=== PATIENT | male | born 1975 | race Caucasian/White ===

== ENCOUNTER 2019-07-06 19:34 | Emergency (ER) | payer MEDICARE, MEDICAID ==
[~2019-07-06] VITALS: Ht 185.4 cm; Wt 90.7 kg
[~2019-07-06 19:34] MED LIST: ASP325T PO; CARI350T27 PO; DIPH1TAB25 PO; DISU250T PO; DISU500T PO; ENXP40I.4 SC; ESCI10TA48 PO; ESCI20TA38 PO; ETD400T; FRSM20T; FURO20TA4; FURO40TA4 PO; GENT3.5O3 OP; GENT5DRO3 OD; HSCO125 PO; HYDR-1231 PO; HYDR-3714 PO; KCL10CCR; KCL10CCR PO; LASIX; MIRT30TA6 PO; MOME15CR TP; MONT10TA21; NAPR-243 PO; NISO34TA3 PO; POTA10TA6; POTA10TA6 PO; POTASSIUM; PRED10TA PO; PREG100C22 PO; PREG75CA; SULAR; SULF-222 PO; TERB250T10 PO; TRAM-21 PO; TRM50T PO; VARD20TA30 PO; [UNRECOGNIZED DRUG - CODE]
[2019-07-06 20:47] LABS: BASOPHILS % (AUTO) 0 % (0-10); EOSINOPHILS # (AUTO) 0.5 10^3/uL (0.0-0.3); EOSINOPHILS % (AUTO) 3 % (0-10); HEMATOCRIT 49 % (40-54); HEMOGLOBIN 17.2 G/DL (13.3-17.7); LYMPHOCYTES # (AUTO) 3.4 X 10^3 (1.0-4.0); LYMPHOCYTES % (AUTO) 24 % (12-44); MEAN CORPUSCULAR HEMOGLOBIN 32 PG (25-34); MEAN CORPUSCULAR HGB CONC 35 G/DL (32-36); MEAN CORPUSCULAR VOLUME 91 FL (80-99); MEAN PLATELET VOLUME 9.5 FL (7.4-10.4); MONOCYTES # (AUTO) 1.3 X 10^3 (0.0-1.0); MONOCYTES % (AUTO) 9 % (0-12); NEUTROPHILS # (AUTO) 9.3 X 10^3 (1.8-7.8); NEUTROPHILS % (AUTO) 64 % (42-75); PLATELET COUNT 342 10^3/uL (130-400); RED CELL DISTRIBUTION WIDTH 13.2 % (10.0-14.5); WHITE BLOOD COUNT 14.5 10^3/uL (4.3-11.0)
[2019-07-06 21:07] LABS: ALANINE AMINOTRANSFERASE 25 U/L (0-55); ALBUMIN 4.9 GM/DL (3.2-4.5); ALKALINE PHOSPHATASE 115 U/L (40-136); BILIRUBIN,TOTAL 0.5 MG/DL (0.1-1.0); BUN/CREATININE RATIO 9; CALCIUM 9.9 MG/DL (8.5-10.1); CARBON DIOXIDE 25 MMOL/L (21-32); CHLORIDE 98 MMOL/L (98-107); CREATININE SERUM 1.62 MG/DL (0.60-1.30); GFR ESTIMATED 47; GLUCOSE 150 MG/DL (70-105); MAGNESIUM 1.9 MG/DL (1.6-2.4); POTASSIUM 3.5 MMOL/L (3.6-5.0); SODIUM 138 MMOL/L (135-145); TOTAL PROTEIN 9.2 GM/DL (6.4-8.2)
[2019-07-06] MEDS ORDERED: LACTATED RINGERS 1,000 ML IV ONE ×3 (21:11→22:53)
--- NOTE | 2019-07-06 21:45 | Diagnostic Imaging Report ---
INDICATION: Bilateral leg cramping. Spasms. COMPARISON: 06/28/2014 FINDINGS: Frontal and lateral views of the chest demonstrate normal heart size and pulmonary vascularity. The lungs are clear. There are no signs of infiltrate, pleural effusions or pneumothoraces. The visualized osseous structures show no acute abnormalities. IMPRESSION: 1. No acute process. No signs of infiltrates, effusions or pneumothoraces. Dictated by: Dictated on workstation # [id number]
[2019-07-06 22:09] LABS: BILIRUBIN,URINE NEGATIVE (NEGATIVE); CLARITY,URINE VERY CLOUDY; COLOR,URINE AMBER; GLUCOSE, URINE (UA) NEGATIVE (NEGATIVE); KETONES,URINE NEGATIVE (NEGATIVE); LEUKOCYTE ESTERASE ,URINE 1+ (NEGATIVE); NITRITE,URINE NEGATIVE (NEGATIVE); PH,URINE 5 (5-9); PROTEIN,URINE 3+ (NEGATIVE); UROBILINOGEN,URINE 1 MG/DL (NORMAL)
--- NOTE | 2019-07-06 22:11 | ED General ---
General Chief Complaint: General Problems/Pain Stated Complaint: LEGS CRAMPING Nursing Triage Note: Pt amb to room #7 w/o difficulty. a&ox4. C/o bilat leg cramping and spasms for past 48hrs. Pt reports symptoms worsen @ night. Reports hx poor circulation and blood clots. Pt is hearing impaired and mute and communicates throught his sister @ bedside. Nursing Sepsis Screen: No Definite Risk Source of Information: Patient Exam Limitations: No Limitations History of Present Illness Date Seen by Provider: Jul 06, 2019 Time Seen by Provider: 22:10 Initial Comments This 44-year-old gentleman presents to the emergency room with complaints of cramping particularly in his lower extremities been no progressing up to his upper extremities. He is deaf and homeless. He arrives with family who assist with sign language interpretation. He has been staying outside in extreme heat and humidity. They're concerned about possible dehydration. He denies any other symptoms at this time. Allergies and Home Medications Allergies Coded Allergies: NKANo Known Allergies (Unverified Allergy, Mild, 04/22/09) No Known Drug Allergies (Verified , 12/07/07) Home Medications Aspirin 325 Mg Tab, 325 MG PO DAILY, (Reported) Carisoprodol 350 Mg Tablet, 350 MG PO DAILY PRN for MUSCLE SPASMS, (Reported) NEEDED FOR MUSCLE SPASMS Cephalexin 500 Mg Capsule, 500 MG PO TID Prescribed by: DEISY ZHAO on 07/07/19 0016 Diphenoxylate/Atropine 1 Tab Tablet, 1 TAB PO TID PRN for DIARRHEA, (Reported) NEEDED FOR DIARRHEA Disulfiram 500 Mg Tablet, 500 MG PO DAILY, (Reported) Enoxaparin 40 Mg/0.4 Ml Soln, 40 MG SC DAILY@12 Prescribed by: SARAH BANERJEE on 06/08/14 1200 Escitalopram Oxalate 20 Mg Tablet, 20 MG PO DAILY, (Reported) Escitalopram Oxalate 10 Mg Tablet, 10 MG PO DAILY, (Reported) Furosemide 40 Mg Tablet, 40 MG PO DAILY, (Reported) Hydrocodone Bit/Acetaminophen 1 Each Tablet, 1 TAB PO Q6H PRN for PAIN, (Reported) NEEDED FOR PAIN Hydrocodone Bit/Acetaminophen 1 Tab Tablet, 1-2 TAB PO Q6H PRN for PAIN Prescribed by: SHRAVAN PEPPER on 11/17/14 1450 Mometasone Furoate 15 Gm Cream.gm., 15 GM TP TID Prescribed by: ASTON COLEMAN on 09/05/142316 Naproxen 500 Mg Tablet, 1 EACH PO TID PRN for PAIN FOR PAIN Prescribed by: ASTON COLEMAN on 09/05/142316 Nisoldipine 34 Mg Tab.sr.24h, 34 MG PO DAILY, (Reported) Potassium Chloride 10 Meq Tablet.sa, 10 MEQ PO TID, (Reported) Prednisone 10 Mg Tablet, 40 MG PO DAILY Prescribed by: SHRAVAN PEPPER on 11/17/141449 Pregabalin 100 Mg Capsule, 100 MG PO DAILY, (Reported) Vardenafil Hcl 20 Mg Tablet, 20 MG PO DAILY PRN for ED, (Reported) NEEDED FOR ERECTILE DYSFUNCTION Patient Home Medication List Home Medication List Reviewed: Yes Review of Systems Review of Systems Constitutional: no symptoms reported EENTM: no symptoms reported Respiratory: no symptoms reported Cardiovascular: no symptoms reported Gastrointestinal: no symptoms reported Genitourinary: no symptoms reported Musculoskeletal: see HPI Skin: no symptoms reported Psychiatric/Neurological: No Symptoms Reported Hematologic/Lymphatic: No Symptoms Reported Past Hajohdn-Njmoan-Flwndp Hx Past Med/Social Hx: Reviewed and Corrections made Patient Social History Recent Foreign Travel: No Contact w/Someone Who Travel: No Recent Infectious Disease Expo: No Immunizations Up To Date Tetanus Booster (TDap): Unknown Date of Pneumonia Vaccine: Nov 24, 2009 Date of Influenza Vaccine: Sep 20, 2013 Past Medical History Surgeries: Yes Abdominal (hernia repair as a child) Respiratory: No Cardiac: No Deep Vein Thrombosis, Peripheral Vascular Neurological: No Reproductive Disorders: No Genitourinary: No Gastrointestinal: No Musculoskeletal: Yes Chronic Back Pain HEENT: No Hearing Impairment: Deaf Cancer: No Psychosocial: Yes Depression Integumentary: Yes (history of cellulitis) Adverse Reaction/Blood Tranf: No Family Medical History Reviewed Nursing Family Hx Congestive heart failure 03 MOTHER 09 SISTER Family history: Arthritis 03 MOTHER 09 SISTER No Family History of: Abdominal aortic aneurysm Armstrong's disease Alcoholism Aphasia Cancer Cancer of colon Cataract Chest pain Congenital heart disease Cystic fibrosis Dementia Dysphagia Family history: Allergy Family history: Alzheimer's disease Family history: Asthma Family history: Breast disease Family history: Cardiovascular disease Family history: Coronary thrombosis Family history: Diabetes mellitus Family history: Gastrointestinal disease Family history: Glaucoma Family history: Hypertension Family history: Thyroid disorder Headache Hearing loss Heart disease Hereditary disease History of - anemia History of - disorder History of - respiratory disease History of drug abuse Human immunodeficiency virus (HIV) seropositivity Hypercholesterolemia Infertile Kidney disease Malignant neoplasm of lung Myocardial infarction Parkinson's disease Prostate cancer Psychotic disorder Seizure disorder Stroke Tuberculosis Visual impairment Physical Exam Vital Signs Vital Signs - First Documented 07/06/19 19:44 Temp 97.9 Pulse 92 Resp 17 B/P (MAP) 129/95 (106) Pulse Ox 99 O2 Delivery Room Air Capillary Refill : Less Than 3 Seconds Height, Weight, BMI Height: 6'1.00" Weight: 200lbs. 8.0oz. [id number]; BMI Method:Stated General Appearance: No Apparent Distress, WD/WN HEENT: PERRL/EOMI, Normal ENT Inspection Neck: Normal Inspection Respiratory: Lungs Clear, Normal Breath Sounds, No Accessory Muscle Use Cardiovascular: Regular Rate, Rhythm, No Edema, No Murmur Gastrointestinal: Normal Bowel Sounds, Non Tender, Soft Extremity: Normal Inspection, No Pedal Edema Neurologic/Psychiatric: Alert, Oriented x3, No Motor/Sensory Deficits, Normal Mood/Affect, Other (deaf) Skin: Normal Color, Warm/Dry Progress/Results/Core Measures Suspected Sepsis Recent Fever Within 48 Hours: No Infection Criteria Present: None New/Unexplained Altered Menta: No Sepsis Screen: No Definite Risk SIRS Temperature:97.9 Pulse: 92 Respiratory Rate: 17 Laboratory Tests 07/06/19 20:35: White Blood Count 14.5H Blood Pressure 129 /95 Mean: 106 Laboratory Tests 07/06/19 20:35: Creatinine 1.62H, Platelet Count 342, Total Bilirubin 0.5 Results/Orders Lab Results Laboratory Tests Test 07/06/19 20:35 07/06/19 22:03 Range/Units White Blood Count 14.5 H 4.3-11.0 10^3/uL Red Blood Count 5.37 4.35-5.85 10^6/uL Hemoglobin 17.2 13.3-17.7 G/DL Hematocrit 49 40-54 % Mean Corpuscular Volume 91 80-99 FL Mean Corpuscular Hemoglobin 32 25-34 PG Mean Corpuscular Hemoglobin Concent 35 32-36 G/DL Red Cell Distribution Width 13.2 10.0-14.5 % Platelet Count 342 130-400 10^3/uL Mean Platelet Volume 9.5 7.4-10.4 FL Neutrophils (%) (Auto) 64 42-75 % Lymphocytes (%) (Auto) 24 12-44 % Monocytes (%) (Auto) 9 0-12 % Eosinophils (%) (Auto) 3 0-10 % Basophils (%) (Auto) 0 0-10 % Neutrophils # (Auto) 9.3 H 1.8-7.8 X 10^3 Lymphocytes # (Auto) 3.4 1.0-4.0 X 10^3 Monocytes # (Auto) 1.3 H 0.0-1.0 X 10^3 Eosinophils # (Auto) 0.5 H 0.0-0.3 10^3/uL Basophils # (Auto) 0.0 0.0-0.1 10^3/uL Sodium Level 138 135-145 MMOL/L Potassium Level 3.5 L 3.6-5.0 MMOL/L Chloride Level 98 98-107 MMOL/L Carbon Dioxide Level 25 21-32 MMOL/L Anion Gap 15 H 5-14 MMOL/L Blood Urea Nitrogen 14 7-18 MG/DL Creatinine 1.62 H 0.60-1.30 MG/DL Estimat Glomerular Filtration Rate 47 BUN/Creatinine Ratio 9 Glucose Level 150 H 70-105 MG/DL Calcium Level 9.9 8.5-10.1 MG/DL Corrected Calcium 8.5-10.1 MG/DL Magnesium Level 1.9 1.6-2.4 MG/DL Total Bilirubin 0.5 0.1-1.0 MG/DL Aspartate Amino Transf (AST/SGOT) 30 5-34 U/L Alanine Aminotransferase (ALT/SGPT) 25 0-55 U/L Alkaline Phosphatase 115 40-136 U/L Total Creatine Kinase 605 H 30-200 U/L Total Protein 9.2 H 6.4-8.2 GM/DL Albumin 4.9 H 3.2-4.5 GM/DL Urine Color BETTINA H Urine Clarity VERY CLOUDY H Urine pH 5 5-9 Urine Specific [place]anan 1.025 H 1.016-1.022 Urine Protein 3+ H NEGATIVE Urine Glucose (UA) NEGATIVE NEGATIVE Urine Ketones NEGATIVE NEGATIVE Urine Nitrite NEGATIVE NEGATIVE Urine Bilirubin NEGATIVE NEGATIVE Urine Urobilinogen 1 NORMAL MG/DL Urine Leukocyte Esterase 1+ H NEGATIVE Urine RBC (Auto) 2+ H NEGATIVE Urine RBC NONE /HPF Urine WBC 5-10 H /HPF Urine Squamous Epithelial Cells NONE /HPF Urine Crystals NONE /LPF Urine Bacteria MODERATE H /HPF Urine Casts NONE /LPF Urine Mucus LARGE H /LPF Urine Culture Indicated YES Micro Results Microbiology 07/06/19 Urine Culture - Final, Complete 3 or more isolates My Orders Orders - DEISY AMANDA MD Cbc With Automated Diff (07/06/19 20:23) Comprehensive Metabolic Panel (07/06/19 20:23) Magnesium (07/06/19 20:23) Creatine Kinase (07/06/19 20:53) Ed Iv/Invasive Line Start (07/06/19 21:17) Lactated Ringers (Lr 1000 Ml Iv Solution (07/06/19 21:17) Ua Culture If Indicated (07/06/19 21:18) Chest Pa/Lat (2 View) (07/06/19 21:19) Lactated Ringers (Lr 1000 Ml Iv Solution (07/06/19 21:11) Urine Culture (07/06/19 22:03) Ceftriaxone For Iv Use (Rocephin For I (07/06/19 23:00) Lactated Ringers (Lr 1000 Ml Iv Solution (07/06/19 22:53) Medications Given in ED Vital Signs/I&O Capillary Refill : Less Than 3 Seconds Blood Pressure Mean: 106 Progress Note : Progress Note Patient was treated with 2 L of LR. This significantly improved his symptoms. Creatinine kinase was moderately elevated at 605. UA was suggestive of urinary tract infection. Rocephin was administered. Urinalysis and chest x-ray were obtained to evaluate patient's leukocytosis. Diagnostic Imaging Diagonstic Imaging: Xray Plain Films/CT/US/NM/MRI: chest Comments Chest x-ray viewed by me and report reviewed. See report below: NAME: SERENA GARCÍA [facility] REC#: [id number] PT STATUS: REG ER : 1975 PHYSICIAN: DEISY AMANDA MD ADMIT DATE: 07/06/19/ER Draft Date of Exam:07/06/19 CHEST PA/LAT (2 VIEW) INDICATION: Bilateral leg cramping. Spasms. COMPARISON: 06/28/2014 FINDINGS: Frontal and lateral views of the chest demonstrate normal heart size and pulmonary vascularity. The lungs are clear. There are no signs of infiltrate, pleural effusions or pneumothoraces. The visualized osseous structures show no acute abnormalities. IMPRESSION: 1. No acute process. No signs of infiltrates, effusions or pneumothoraces. Dictated on workstation # [id number] Dict: 07/06/192139 Trans: 07/06/192143 [facility] [id number] Interpreted by: GURJIT SALGADO MD Departure Impression Primary Impression: Acute kidney injury Additional Impressions: Urinary tract infection Qualified Codes: N39.0 - Urinary tract infection, site not specified Hypovolemia Muscle cramping Disposition: HOME, SELF-CARE Condition: Improved Departure-Patient Inst. Decision time for Depature: 00:10 Referrals: PAULA ROBLEDO MD (PCP/Family) Primary Care Physician Patient Instructions: Urinary Tract Infection, Child (DC), Acute Kidney Failure Add. Discharge Instructions: Drink plenty of clear liquids. Follow-up with your primary care provider soon as possible. Complete your antibiotics as prescribed. Return to emergency room if you have worsening symptoms. All discharge instructions reviewed with patient and/or family. Voiced understanding. Scripts Cephalexin (Keflex) 500 Mg Capsule 500 MG PO TID, #20 CAP Prov: DEISY AMANDA MD 07/07/19 Copy Copies To 1: PAULA ROBLEDO MD, JOSHUA T MD Jul 06, 2019 22:11
[2019-07-06 22:19] LABS: BACTERIA,URINE MODERATE /HPF
[2019-07-06] MEDS ORDERED: cefTRIAXone FOR IV USE 1,000 MG in WATER (STERILE) FOR INJECTION 10 ML IV ONE (23:00)
[2019-07-07] MEDS ORDERED: CEPH-507 PO (00:16)
[2019-07-07 00:21] VITALS: BP 131/92
--- NOTE | 2019-07-07 00:21 | NUR ---
D/c instructions reviewed with pt, family, and s/o by HERMES Oneal.
== END 2019-07-07 00:21 | disposition home or self-care (01) ==
LOC: EDUNIT# 19:34 → ER 19:36
DX: N17.9 Acute kidney failure, unspecified (principal); N39.0 Urinary tract infection, site not specified; E86.1 Hypovolemia; R25.2 Cramp and spasm; I73.9 Peripheral vascular disease, unspecified; F32.9 Major depressive disorder, single episode, unspecified; Z82.49 Family history of ischemic heart disease and other diseases of the circulatory system; Z86.718 Personal history of other venous thrombosis and embolism; Z79.82 Long term (current) use of aspirin; Z98.890 Other specified postprocedural states
CPT/HCPCS: 36415; 71046; 80053; 81000; 82550; 83735; 85025; 87088

== ENCOUNTER 2020-06-11 20:36 | Emergency (ER) | payer MEDICARE, MEDICAID ==
[~2020-06-11] VITALS: Ht 185 cm; Wt 100.0 kg
[~2020-06-11 20:36] MED LIST changes: +CEPH-507 PO
[2020-06-11] MEDS ORDERED: NS IV 1000 ML 1,000 ML IV SCH (20:40)
--- OUTSIDE RECORDS SUMMARY | 2020-06-11 20:48 | XMS REPORT ---
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 Name Role Phone PAULA ROBLEDO Unavailable PROBLEMS Type Condition ICD9-CM Code OOW99-XD Code Onset Dates Condition S tatus SNOMED Code Problem Raynauds disease I73.00 Active 195 342783 Problem Venous insufficiency I87.2 Active 57971443 Problem Other chronic pain G89.29 Active 8 5178784 Problem Hypokalemia E87.6 Active 57497690 Problem Prediabetes R73.03 Active 05917823 2 Problem Low back pain M54.5 Active 361234 009 Problem Congenital deafness H90.5 Active 57889018 Problem Dysthymia F34.1 Active 42890096 Problem Neuropathy G62.9 Active [id number] ALLERGIES No Information ENCOUNTERS Encounter Location Date Diagnosis [facility] [address] [facility] [id number] [address] [place] [id number] Jan, Neuropathy G62.9 [facility] [address] [place] [id number] [address] [place] [address] 14 Dec, 2019 Neuropathy G62.9 [facility] [address] [place] [id number] [address] [place] [address] Nov, Raynauds disease I73.00 ; Ve nous insufficiency I87.2 ; Prediabetes R73.03 and Neuropathy G62.9 [facility] [address] [facility] [id number] [address] [place] [address] Jun, Congenital deafness H90.5 [facility] [address] [facility] [id number] [address] [place] [address] Jun, Other chronic pain G89.29 [facility] [address] [place] [id number] [address] [place] [address] Jun, Acute kidney injury N17.9 [facility] [address] [address] Jan, Abscess of left knee L02.416 [facility] [address] [address] Jan, Prediabetes R73.03 ; Raynaud s disease I73.00 and Venous insufficiency I87.2 [place] [address] [address] Oct, Neuropathy G62.9 ; Low back pain M54.5 and URI (upper respiratory infection) J06.9 [place] [address] [address] Jul, Raynauds disease I73.00 and Hypokalemia E87.6 [place] [address] [address] May, Medicare annual wellness vis it, initial Z00.00 ; Dysthymia F34.1 ; Raynauds disease I73.00 ; Venous insufficiency I87.2 ; Congenital deafness H90.5 and Neuropathy G62.9 [place] [address] [address] Apr, [place] [address] [address] Apr, Prediabetes R73.03 ; Raynaud s disease I73.00 ; Venous insufficiency I87.2 ; Neuropathy G62.9 and Dysthymia F34.1 [place] [address] [address] March, [place] [address] [address] Sep, Hyperglycemia R73.9 [place] [address] [address] Sep, Hyperglycemia R73.9 [facility] [address] [place] [id number] [place] [address] Sep, Raynauds disease I73.00 ; Ve nous insufficiency I87.2 and Encounter for immunization Z23 [facility] [address] [address] Jun, [facility] [address] [address] May, [facility] [address] [address] May, Other chronic pain G89.29 [place] [address] [address] May, Raynauds disease I73.00 ; Ve nous insufficiency I87.2 and Low back pain M54.5 [facility] [address] [address] Dec, Raynauds disease I73.00 ; Ve nous insufficiency I87.2 ; Low back pain M54.5 and Other chronic pain G89.29 [facility] [address] [address] Nov, [facility] [address] [address] Nov, Muscle spasm M62.838 [facility] [address] [id number] [address] [place] [address] Nov, [facility] [address] [address] Oct, Folliculitis L73.9 and Venou s insufficiency I87.2 [facility] [address] [place] [id number] [address] [place] [address] Sep, Dermatitis L30.9 and Raynaud s disease I73.00 [facility] [address] [id number] [address] [place] [address] Sep, Rash and nonspecific skin er uption R21 [facility] [address] [facility] [id number] [address] [place] [address] Aug, Skin infection L08.9 [facility] [address] [facility] [id number] [address] [place] [address] May, Infected smith L08.9 [facility] [address] [facility] [id number] [address] [place] [address] May, Skin infection L08.9 [facility] [address] [facility] [id number] [address] [place] [address] Dec, [facility] [address] [facility] [id number] [address] [place] [address] Nov, [facility] [address] [facility] [id number] [address] [place] [address] Nov, [facility] [address] [facility] [id number] [address] [place] [address] Nov, Raynauds disease I73.00 [facility] [address] [facility] [id number] [address] [place] [address] Nov, Raynauds disease I73.00 ; Le g cramps R25.2 ; Venous insufficiency I87.2 and Routine adult health maintenance Z00.00 [facility] [address] [facility] [id number] [address] [place] [address] Jul, Infected sebaceous cyst 706. 2 [facility] [address] [facility] [id number] [address] [place] [address] Jun, [facility] [address] [facility] [id number] [address] [place] [address] Jun, [facility] [address] [facility] [id number] [address] [place] [address] Jun, Venous insufficiency 459.81 and Raynauds disease 443.0 [facility] [address] [id number] [address] [place] [address], [place] [address] Feb, [facility] [address] [id number] [address] [place] [address] Feb, [facility] [address] [id number] [address] [place] [address] Jan, [facility] [address] [id number] [address] [place] [address] Jan, [facility] [address] [id number] [address] [place] [address], [place] [address] Dec, [facility] [address] [id number] [address] [place] [address] Dec, [facility] [address] [id number] [address] [place] [address] Dec, [facility] [address] [id number] [address] [place] [address] Dec, [facility] [address] [id number] [address] [place] [address] Nov, [facility] [address] [id number] [address] [place] [address] Nov, [facility] [address] [id number] [address] [place] [address] Oct, [facility] [address] [id number] [address] [place] [address] Oct, [facility] [address] [id number] [address] [place] [address] Aug, [facility] [address] [id number] [address] [place] [address] Aug, [facility] [address] [id number] [address] [place] [address] Aug, [facility] [address] [id number] [facility] [place] [address] Jul, [facility] [address] [id number] [facility] [place] [address] Jul, [facility] [address] [id number] [facility] [address] Jul, [facility] [address] [id number] [facility] [place] [address] Jul, [facility] [address] [id number] [facility] [place] [address] Jun, [facility] [address] [id number] [address] [place] [address], [place] [address] Jun, [facility] [address] [id number] [address] [place] [address], [place] [address] Jun, [facility] [address] [id number] [address] [place] [address], [place] [address] Jun, [facility] [address] [id number] [address] [place] [address], [place] [address] May, [facility] [address] [id number] [address] [place] [address], [place] [address] May, [facility] [address] [id number] [address] [place] [address], [place] [address] May, [facility] [address] [id number] [address] [place] [address], [place] [address] May, [facility] [address] [id number] [address] [place] [address], [place] [address] May, [facility] [address] [id number] [address] [place] [address], [place] [address] May, [facility] [address] [id number] [address] [place] [address], [place] [address] May, [facility] [address] [id number] [address] [place] [address], [place] [address] Apr, [facility] [address] [id number] [address] [place] [address], [place] [address] Apr, [facility] [address] [id number] [address] [place] [address], [place] [address] Apr, [facility] [address] [id number] [address] [place] [address], [place] [address] Apr, [facility] [address] [id number] [address] [place] [address], [place] [address] March, [facility] [address] [id number] [address] [place] [address], [place] [address] March, [facility] [address] [id number] [address] [place] [address], [place] [address] March, [facility] [address] [id number] [address] [place] [address], [place] [address] March, [facility] [address] [id number] [address] [place] [address], [place] [address] March, [facility] [address] [id number] [address] [place] [address], [place] [address] March, [facility] [address] [id number] [address] [place] [address], [place] [address] March, [facility] [address] [id number] [address] [place] [address], [place] [address] Feb, [facility] [address] [id number] [address] [place] [address], [place] [address] Feb, [facility] [address] [place] [id number] Feb, [facility] [address] [id number] [address] [place] [address], [place] [address] Feb, [facility] [address] [id number] [address] [place] [address], [place] [address] Feb, [facility] [address] [id number] [address] [place] [address], [place] [address] Feb, [facility] [address] [id number] [facility] [place] [address] Jan, [facility] [address] [id number] [facility] [address] Jan, [facility] [address] [id number] [facility] [place] [address] Jan, [facility] [address] [id number] [facility] [address] Jan, [facility] [address] [id number] [facility] [address] Jan, [facility] [address] [id number] [address] [place] [address], [place] [address] Jan, [facility] [address] [id number] [address] [place] [address], [place] [address] Jan, [facility] [address] [id number] [address] [place] [address], [place] [address] Jan, [facility] [address] [id number] [address] [place] [address], [place] [address] Jan, [facility] [address] [id number] [address] [place] [address], [place] [address] Jan, [facility] [address] [id number] [address] [place] [address], [place] [address] Jan, [facility] [address] [id number] [address] [place] [address], [place] [address] Jan, [facility] [address] [id number] [address] [place] [address], [place] [address] Jan, [facility] [address] [id number] [address] [place] [address], [place] [address] Jan, [facility] [address] [id number] [address] [place] [address], [place] [address] Jan, [facility] [address] [id number] [address] [place] [address], [place] [address] Jan, [facility] [address] [id number] [address] [place] [address], [place] [address] Jan, [facility] [address] [id number] [address] [place] [address], [place] [address] Jan, [facility] [address] [id number] [address] [place] [address], [place] [address] Dec, [facility] [address] [id number] [address] [place] [address], [place] [address] Dec, [facility] [address] [id number] [address] [place] [address], [place] [address] Dec, [facility] [address] [id number] [address] [place] [address], [place] [address] Dec, [facility] [address] [id number] [address] [place] [address], [place] [address] 14 Dec, 2013 [facility] [address] [id number] [address] [place] [address], [place] [address] Dec, [facility] [address] [id number] [address] [place] [address], [place] [address] 07 Dec, 2013 [facility] [address] [id number] [address] [place] [address], [place] [address] Dec, [facility] [address] [id number] [address] [place] [address], [place] [address] Dec, [facility] [address] [id number] [address] [place] [address], [place] [address] Dec, [facility] [address] [id number] [address] [place] [address], [place] [address] Dec, [facility] [address] [id number] [address] [place] [address], [place] [address] Dec, [facility] [address] [id number] [address] [place] [address] Nov, [facility] [address] [id number] [address] [place] [address], [place] [address] Nov, [facility] [address] [id number] [address] [place] [address], [place] [address] Nov, [facility] [address] [id number] [address] [place] [address], [place] [address] Nov, [facility] [address] [id number] [address] [place] [address], [place] [address] Nov, [facility] [address] [id number] [address] [place] [address], [place] [address] Nov, [facility] [address] [id number] [address] [place] [address], [place] [address] Nov, [facility] [address] [id number] [address] [place] [address], [place] [address] Oct, [facility] [address] [id number] [address] [place] [address], [place] [address] Oct, [facility] [address] [id number] [address] [place] [address], [place] [address] Sep, [facility] [address] [id number] [address] [place] [address], [place] [address] Sep, [facility] [address] [id number] [address] [place] [address], [place] [address] Sep, [facility] [address] [id number] [address] [place] [address] Sep, [facility] [address] [id number] [address] [place] [address], [place] [address] Aug, [facility] [address] [id number] [address] [place] [address], [place] [address] Aug, [facility] [address] [id number] [address] [place] [address] Aug, [facility] [address] [id number] [address] [place] [address], [place] [address] Jul, [facility] [address] [id number] [address] [place] [address], [place] [address] Jul, [facility] [address] [id number] [address] [place] [address], [place] [address] Jun, [facility] [address] [id number] [address] [place] [address], [place] [address] Jun, [facility] [address] [id number] [address] [place] [address], [place] [address] Jun, [facility] [address] [id number] [address] [place] [address], [place] [address] May, [facility] [address] [id number] [address] [place] [address], [place] [address] May, [facility] [address] [id number] [address] [place] [address], [place] [address] May, [facility] [address] [id number] [address] [place] [address], [place] [address] Apr, [facility] [address] [id number] [address] [place] [address], [place] [address] Apr, [facility] [address] [id number] [address] [place] [address], [place] [address] March, [facility] [address] [id number] [address] [place] [address], [place] [address] Feb, [facility] [address] [id number] [address] [place] [address], [place] [address] Jan, [facility] [address] [id number] [address] [place] [address], [place] [address] Jan, [facility] [address] [id number] [address] [place] [address], [place] [address] 07 Dec, 2012 [facility] [address] [id number] [address] [place] [address], [place] [address] Nov, [facility] [address] [id number] [address] [place] [address], [place] [address] Oct, [facility] [address] [id number] [address] [place] [address], [place] [address] Oct, [facility] [address] [id number] [address] [place] [address], [place] [address] Sep, [facility] [address] [id number] [address] [place] [address], [place] [address] Sep, [facility] [address] [id number] [address] [place] [address], [place] [address] Sep, [facility] [address] [id number] [address] [place] [address], [place] [id number] Sep, [facility] [address] [id number] [address] [place] [address], [place] [id number] Sep, [facility] [address] [id number] [address] [place] [address], [place] [id number] Sep, [facility] [address] [id number] [address] [place] [address], [place] [id number] Sep, [facility] [address] [id number] [address] [place] [address], [place] [id number] Sep, [facility] [address] [id number] [address] [place] [address], [place] [id number] Jul, [facility] [address] [id number] [address] [place] [address], [place] [id number] Jun, [facility] [address] [id number] [address] [place] [address], [place] [id number] Jun, [facility] [address] [id number] [address] [place] [address], [place] [id number] 15 Jun, 2012 [facility] [address] [id number] [address] [place] [address], [place] [id number] 14 Jun, 2012 [facility] [address] [id number] [address] [place] [address], [place] [id number] 05 May, 2012 [facility] [address] [id number] [address] [place] [address], [place] [id number] 25 Apr, 2012 [facility] [address] [id number] [address] [place] [address], [place] [id number] Jan, [facility] [address] [id number] [address] [place] [address], [place] [id number] 14 Dec, 2011 [facility] [address] [id number] [address] [place] [address], [place] [id number] Dec, [facility] [address] [id number] [address] [place] [address], [place] [id number] Nov, [facility] [address] [id number] [address] [place] [address], [place] [id number] 19 Oct, 2011 [facility] [address] [id number] [address] [place] [address], [place] [id number] 19 Oct, 2011 [facility] [address] [id number] [address] [place] [address], [place] [id number] 18 Aug, 2011 [facility] [address] [id number] [address] [place] [address], [place] [id number] 18 Aug, 2011 [facility] [address] [id number] [address] [place] [address], [place] [id number] 18 Aug, 2011 [facility] [address] [id number] [address] [place] [address], [place] [id number] 14 Aug, 2011 [facility] [address] [id number] [address] [place] [address], [place] [id number] 11 Aug, 2011 [facility] [address] [id number] [address] [place] [address], [place] [id number] 11 Aug, 2011 [facility] [address] [id number] [address] [place] [address], [place] [id number] 19 May, 2011 [facility] [address] [id number] [address] [place] [address], [place] [id number] 13 Apr, 2011 [facility] [address] [id number] [address] [place] [address], [place] [id number] 18 Feb, 2011 [facility] [address] [id number] [address] [place] [address], [place] [id number] 28 Oct, 2010 [facility] [address] [id number] [address] [place] [address], [place] [id number] 21 Oct, 2010 [facility] [address] [id number] [address] [place] [address], [place] [id number] 07 Oct, 2010 [facility] [address] [id number] [address] [place] [address], [place] [id number] 09 Sep, 2010 [facility] [address] [id number] [address] [place] [address], [place] [id number] 26 Aug, 2010 [facility] [address] [id number] [address] [place] [address], [place] [id number] 16 Jul, 2010 [facility] [address] [id number] [address] [place] [id number] 13 May, 2010 [facility] [address] [id number] [address] [place] [address], [place] [id number] Dec, [facility] [address] [id number] [address] [place] [id number] Nov, [facility] [address] [id number] [address] [place] [id number] 14 Oct, 2009 [facility] [address] [id number] [address] [place] [id number] 27 Sep, 2009 [facility] [address] [id number] [address] [place] [address], [place] [id number] 05 Sep, 2009 [facility] [address] [id number] [address] [place] [id number] 14 Jul, 2009 [facility] [address] [id number] [address] [place] [id number] 17 Jun, 2009 [facility] [facility] [address] [id number] [address] [place] [id number] May, IMMUNIZATIONS No Known Immunizations SOCIAL HISTORY Never Assessed REASON FOR VISIT PLAN OF CARE VITAL SIGNS Height 73 in 2013-11-11 Weight 221 lbs 2013-11-11 Temperature 98 degrees Fahrenheit 2013-11-11 Heart Rate 70 bpm 2013-11-11 Respiratory Rate 22 2013-11-11 Blood pressure systolic 110 mmHg 2013-11-11 Blood pressure diastolic 68 mmHg 2013-11-11 MEDICATIONS Unknown Medications RESULTS No Results PROCEDURES No Known procedures INSTRUCTIONS MEDICATIONS ADMINISTERED No Known Medications MEDICAL (GENERAL) HISTORY Type Description Date Medical History Hearing loss congenital deafness Medical History 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
--- OUTSIDE RECORDS SUMMARY | 2020-06-11 20:49 | XMS REPORT ---
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 Name Role Phone PAULA ROBLEDO Unavailable PROBLEMS Type Condition ICD9-CM Code [id number] Code Onset Dates Condition S tatus SNOMED Code Problem Raynauds disease I73.00 Active 195 388478 Problem Venous insufficiency I87.2 Active 84349711 Problem Other chronic pain G89.29 Active 8 2721163 Problem Hypokalemia E87.6 Active 55344879 Problem Prediabetes R73.03 Active 57720348 2 Problem Low back pain M54.5 Active 512755 009 Problem Congenital deafness H90.5 Active 21599449 Problem Dysthymia F34.1 Active 35612645 Problem Neuropathy G62.9 Active [id number] ALLERGIES No Information ENCOUNTERS Encounter Location Date Diagnosis [facility] [address] [facility] [id number] [address] [place] [address] Jan, Neuropathy G62.9 [facility] [address] [place] [id number] [address] [place] [address] 14 Dec, 2019 Neuropathy G62.9 [facility] [address] [place] [id number] [address] [place] [address] Nov, Raynauds disease I73.00 ; Ve nous insufficiency I87.2 ; Prediabetes R73.03 and Neuropathy G62.9 [facility] [address] [id number] [address] [place] [address] Jun, Congenital deafness H90.5 [facility] [address] [facility] [id number] [address] [place] [address] Jun, Other chronic pain G89.29 [facility] [address] [place] [id number] [address] [place] [address] Jun, Acute kidney injury N17.9 [facility] [address] [address] Jan, Abscess of left knee L02.416 [facility] [address] [address] Jan, Prediabetes R73.03 ; Raynaud s disease I73.00 and Venous insufficiency I87.2 [place] [address] [address] Oct, Neuropathy G62.9 ; Low back pain M54.5 and URI (upper respiratory infection) J06.9 [place] [address] [address] Jul, Raynauds disease I73.00 and Hypokalemia E87.6 [place] [address] [address] May, Medicare annual wellness vis it, initial Z00.00 ; Dysthymia F34.1 ; Raynauds disease I73.00 ; Venous insufficiency I87.2 ; Congenital deafness H90.5 and Neuropathy G62.9 [place] [address] [address] Apr, [place] [address] [address] Apr, Prediabetes R73.03 ; Raynaud s disease I73.00 ; Venous insufficiency I87.2 ; Neuropathy G62.9 and Dysthymia F34.1 [place] [address] [address] March, [place] [address] [address] Sep, Hyperglycemia R73.9 [place] [address] [address] Sep, Hyperglycemia R73.9 [facility] [address] [place] [id number] [place] [address] Sep, Raynauds disease I73.00 ; Ve nous insufficiency I87.2 and Encounter for immunization Z23 [facility] [address] [address] Jun, [facility] [address] [address] May, [facility] [address] [address] May, Other chronic pain G89.29 [place] [address] [address] May, Raynauds disease I73.00 ; Ve nous insufficiency I87.2 and Low back pain M54.5 [facility] [address] [address] Dec, Raynauds disease I73.00 ; Ve nous insufficiency I87.2 ; Low back pain M54.5 and Other chronic pain G89.29 [facility] [address] [address] Nov, [facility] [address] [address] Nov, Muscle spasm M62.838 [facility] [address] [place] [id number] [address] [place] [address] Nov, [facility] [address] [address] Oct, Folliculitis L73.9 and Venou s insufficiency I87.2 [facility] [address] [place] [id number] [address] [place] [address] Sep, Dermatitis L30.9 and Raynaud s disease I73.00 [facility] [address] [id number] [address] [place] [address] Sep, Rash and nonspecific skin er uption R21 [facility] [address] [id number] [address] [place] [address] Aug, Skin infection L08.9 [facility] [address] [id number] [address] [place] [address] May, Infected smith L08.9 [facility] [address] [id number] [address] [place] [address] May, Skin infection L08.9 [facility] [address] [id number] [address] [place] [address] Dec, [facility] [address] [id number] [address] [place] [address] Nov, [facility] [address] [id number] [address] [place] [address] Nov, [facility] [address] [id number] [address] [place] [address] Nov, Raynauds disease I73.00 [facility] [address] [id number] [address] [place] [address] Nov, Raynauds disease I73.00 ; Le g cramps R25.2 ; Venous insufficiency I87.2 and Routine adult health maintenance Z00.00 [facility] [address] [id number] [address] [place] [address] Jul, Infected sebaceous cyst 706. 2 [facility] [address] [id number] [address] [place] [address] Jun, [facility] [address] [id number] [address] [place] [address] Jun, [facility] [address] [id number] [address] [place] [address] Jun, Venous insufficiency 459.81 and Raynauds disease 443.0 [facility] [address] [id number] [address] [place] [address], [place] [address] Feb, [facility] [address] [id number] [address] [place] [address] Feb, [facility] [address] [id number] [address] [place] [address] Jan, [facility] [address] [id number] [address] [place] [address] Jan, [facility] [address] [id number] [address] [place] [address], [place] [address] Dec, [facility] [address] [id number] [address] [place] [address] Dec, [facility] [address] [id number] [address] [place] [address] Dec, [facility] [address] [id number] [address] [place] [address] Dec, [facility] [address] [id number] [address] [place] [address] Nov, [facility] [address] [id number] [address] [place] [address] Nov, [facility] [address] [id number] [address] [place] [address] Oct, [facility] [address] [id number] [address] [place] [address] Oct, [facility] [address] [id number] [address] [place] [address] Aug, [facility] [address] [id number] [address] [place] [address] Aug, [facility] [address] [id number] [address] [place] [phone] Aug, [facility] [address] [id number] [facility] [place] [address] Jul, [facility] [address] [id number] [facility] [place] [address] Jul, [facility] [address] [id number] [facility] [place] [address] Jul, [facility] [address] [id number] [facility] [place] [address] Jul, [facility] [address] [id number] [facility] [place] [address] Jun, [facility] [address] [id number] [address] [place] [address], [place] [address] Jun, [facility] [address] [id number] [address] [place] [address], [place] [address] Jun, [facility] [address] [id number] [address] [place] [address], [place] [address] Jun, [facility] [address] [id number] [address] [place] [address], [place] [address] May, [facility] [address] [id number] [address] [place] [address], [place] [address] May, [facility] [address] [id number] [address] [place] [address], [place] [address] May, [facility] [address] [id number] [address] [place] [address], [place] [address] May, [facility] [address] [id number] [address] [place] [address], [place] [address] May, [facility] [address] [id number] [address] [place] [address], [place] [address] May, [facility] [address] [id number] [address] [place] [address], [place] [address] May, [facility] [address] [id number] [address] [place] [address], [place] [address] Apr, [facility] [address] [id number] [address] [place] [address], [place] [address] Apr, [facility] [address] [id number] [address] [place] [address], [place] [address] Apr, [facility] [address] [id number] [address] [place] [address], [place] [address] Apr, [facility] [address] [id number] [address] [place] [address], [place] [address] March, [facility] [address] [id number] [address] [place] [address], [place] [address] March, [facility] [address] [id number] [address] [place] [address], [place] [address] March, [facility] [address] [id number] [address] [place] [address], [place] [address] March, [facility] [address] [id number] [address] [place] [address], [place] [address] March, [facility] [address] [id number] [address] [place] [address], [place] [address] March, [facility] [address] [id number] [address] [place] [address], [place] [address] March, [facility] [address] [id number] [address] [place] [address], [place] [address] Feb, [facility] [address] [id number] [address] [place] [address], [place] [address] Feb, [facility] [address] [place] [id number] Feb, [facility] [address] [id number] [address] [place] [address], [place] [address] Feb, [facility] [address] [id number] [address] [place] [address], [place] [address] Feb, [facility] [address] [id number] [address] [place] [address], [place] [address] Feb, [facility] [address] [id number] [facility] [place] [address] Jan, [facility] [address] [id number] [facility] [place] [address] Jan, [facility] [address] [id number] [facility] [place] [address] Jan, [facility] [address] [id number] [facility] [place] [address] Jan, [facility] [address] [id number] [facility] [place] [address] Jan, [facility] [address] [id number] [address] [place] [address], [place] [address] Jan, [facility] [address] [id number] [address] [place] [address], [place] [address] Jan, [facility] [address] [id number] [address] [place] [address], [place] [address] Jan, [facility] [address] [id number] [address] [place] [address], [place] [address] Jan, [facility] [address] [id number] [address] [place] [address], [place] [address] Jan, [facility] [address] [id number] [address] [place] [address], [place] [address] Jan, [facility] [address] [id number] [address] [place] [address], [place] [address] Jan, [facility] [address] [id number] [address] [place] [address], [place] [address] Jan, [facility] [address] [id number] [address] [place] [address], [place] [address] Jan, [facility] [address] [id number] [address] [place] [address], [place] [address] Jan, [facility] [address] [id number] [address] [place] [address], [place] [address] Jan, [facility] [address] [id number] [address] [place] [address], [place] [address] Jan, [facility] [address] [id number] [address] [place] [address], [place] [address] Jan, [facility] [address] [id number] [address] [place] [address], [place] [address] Dec, [facility] [address] [id number] [address] [place] [address], [place] [address] Dec, [facility] [address] [id number] [address] [place] [address], [place] [address] Dec, [facility] [address] [id number] [address] [place] [address], [place] [address] Dec, [facility] [address] [id number] [address] [place] [address], [place] [id number] 14 Dec, 2013 [facility] [address] [id number] [address] [place] [address], [place] [address] Dec, [facility] [address] [id number] [address] [place] [address], [place] [address] 07 Dec, 2013 [facility] [address] [id number] [address] [place] [address], [place] [address] Dec, [facility] [address] [id number] [address] [place] [address], [place] [address] Dec, [facility] [address] [id number] [address] [place] [address], [place] [address] Dec, [facility] [address] [id number] [address] [place] [address], [place] [address] Dec, [facility] [address] [id number] [address] [place] [address], [place] [address] Dec, [facility] [address] [id number] [address] [place] [address] Nov, [facility] [address] [id number] [address] [place] [address], [place] [address] Nov, [facility] [address] [id number] [address] [place] [address], [place] [address] Nov, [facility] [address] [id number] [address] [place] [address], [place] [address] Nov, [facility] [address] [id number] [address] [place] [address], [place] [address] Nov, [facility] [address] [id number] [address] [place] [address], [place] [address] Nov, [facility] [address] [id number] [address] [place] [address], [place] [address] Nov, [facility] [address] [id number] [address] [place] [address], [place] [address] Oct, [facility] [address] [id number] [address] [place] [address], [place] [address] Oct, [facility] [address] [id number] [address] [place] [address], [place] [address] Sep, [facility] [address] [id number] [address] [place] [address], [place] [address] Sep, [facility] [address] [id number] [address] [place] [address], [place] [address] Sep, [facility] [address] [id number] [address] [place] [address] Sep, [facility] [address] [id number] [address] [place] [address], [place] [address] Aug, [facility] [address] [id number] [address] [place] [address], [place] [address] Aug, [facility] [address] [id number] [address] [place] [address] Aug, [facility] [address] [id number] [address] [place] [address], [place] [address] Jul, [facility] [address] [id number] [address] [place] [address], [place] [address] Jul, [facility] [address] [id number] [address] [place] [address], [place] [address] Jun, [facility] [address] [id number] [address] [place] [address], [place] [address] Jun, [facility] [address] [id number] [address] [place] [address], [place] [address] Jun, [facility] [address] [id number] [address] [place] [address], [place] [address] May, [facility] [address] [id number] [address] [place] [address], [place] [address] May, [facility] [address] [id number] [address] [place] [address], [place] [address] May, [facility] [address] [id number] [address] [place] [address], [place] [address] Apr, [facility] [address] [id number] [address] [place] [address], [place] [address] Apr, [facility] [address] [id number] [address] [place] [address], [place] [address] March, [facility] [address] [id number] [address] [place] [address], [place] [address] Feb, [facility] [address] [id number] [address] [place] [address], [place] [address] Jan, [facility] [address] [id number] [address] [place] [address], [place] [address] Jan, [facility] [address] [id number] [address] [place] [address], [place] [address] 07 Dec, 2012 [facility] [address] [id number] [address] [place] [address], [place] [address] Nov, [facility] [address] [id number] [address] [place] [address], [place] [address] Oct, [facility] [address] [id number] [address] [place] [address], [place] [address] Oct, [facility] [address] [id number] [address] [place] [address], [place] [address] Sep, [facility] [address] [id number] [address] [place] [address], [place] [address] Sep, [facility] [address] [id number] [address] [place] [address], [place] [id number] Sep, [facility] [address] [id number] [address] [place] [address], [place] [address] Sep, [facility] [address] [id number] [address] [place] [address], [place] [id number] Sep, [facility] [address] [id number] [address] [place] [address], [place] [address] Sep, [facility] [address] [id number] [address] [place] [address], [place] [address] Sep, [facility] [address] [id number] [address] [place] [address], [place] [id number] Sep, [facility] [address] [id number] [address] [place] [address], [place] [address] Jul, [facility] [address] [id number] [address] [place] [address], [place] [address] Jun, [facility] [address] [id number] [address] [place] [address], [place] [address] Jun, [facility] [address] [id number] [address] [place] [address], [place] [id number] 15 Jun, 2012 [facility] [address] [id number] [address] [place] [address], [place] [id number] 14 Jun, 2012 [facility] [address] [id number] [address] [place] [address], [place] [id number] 05 May, 2012 [facility] [address] [id number] [address] [place] [address], [place] [id number] 25 Apr, 2012 [facility] [address] [id number] [address] [place] [address], [place] [address] Jan, [facility] [address] [id number] [address] [place] [address], [place] [id number] 14 Dec, 2011 [facility] [address] [id number] [address] [place] [address], [place] [address] Dec, [facility] [address] [id number] [address] [place] [address], [place] [address] Nov, [facility] [address] [id number] [address] [place] [address], [place] [id number] 19 Oct, 2011 [facility] [address] [id number] [address] [place] [address], [place] [id number] 19 Oct, 2011 [facility] [address] [id number] [address] [place] [address], [place] [id number] 18 Aug, 2011 [facility] [address] [id number] [address] [place] [address], [place] [id number] 18 Aug, 2011 [facility] [address] [id number] [address] [place] [address], [place] [id number] 18 Aug, 2011 [facility] [address] [id number] [address] [place] [address], [place] [address] 14 Aug, 2011 [facility] [address] [id number] [address] [place] [address], [place] [id number] 11 Aug, 2011 [facility] [address] [id number] [address] [place] [address], [place] [address] 11 Aug, 2011 [facility] [address] [id number] [address] [place] [address], [place] [id number] 19 May, 2011 [facility] [address] [id number] [address] [place] [address], [place] [address] 13 Apr, 2011 [facility] [address] [id number] [address] [place] [address], [place] [address] 18 Feb, 2011 [facility] [address] [id number] [address] [place] [address], [place] [id number] 28 Oct, 2010 [facility] [address] [id number] [address] [place] [address], [place] [address] 21 Oct, 2010 [facility] [address] [id number] [address] [place] [address], [place] [id number] 07 Oct, 2010 [facility] [address] [id number] [address] [place] [address], [place] [id number] 09 Sep, 2010 [facility] [address] [id number] [address] [place] [address], [place] [id number] 26 Aug, 2010 [facility] [address] [id number] [address] [place] [address], [place] [id number] 16 Jul, 2010 [facility] [address] [id number] [address] [place] [id number] 13 May, 2010 [facility] [address] [id number] [address] [place] [address], [place] [address] Dec, [facility] [address] [id number] [address] [place] [id number] Nov, [facility] [address] [id number] [address] [place] [id number] 14 Oct, 2009 [facility] [address] [id number] [address] [place] [id number] 27 Sep, 2009 [facility] [address] [id number] [address] [place] [address], [place] [id number] 05 Sep, 2009 [facility] [address] [id number] [address] [place] [id number] 14 Jul, 2009 [facility] [address] [id number] [address] [place] [id number] 17 Jun, 2009 [facility] [facility] [address] [id number] [place] [id number] May, IMMUNIZATIONS No Known Immunizations SOCIAL HISTORY Never Assessed REASON FOR VISIT PLAN OF CARE VITAL SIGNS Height 73 in 2013-10-14 Weight 221 lbs 2013-10-14 Temperature 98.5 degrees Fahrenheit 2013-10-14 Heart Rate 75 bpm 2013-10-14 Respiratory Rate 20 2013-10-14 Blood pressure systolic 100 mmHg 2013-10-14 Blood pressure diastolic 82 mmHg 2013-10-14 MEDICATIONS Unknown Medications RESULTS No Results PROCEDURES Procedure Date Ordered Result Body Site MEASURE BLOOD OXYGEN LEVEL Oct 14, 2013 INFLUENZA ASSAY W/OPTIC Oct 14, 2013 INSTRUCTIONS MEDICATIONS ADMINISTERED No Known Medications MEDICAL [...]
--- OUTSIDE RECORDS SUMMARY | 2020-06-11 20:49 | XMS REPORT ---
Author Author Jd ROBLEDO Organization [facility] Address [address] [place] [address] Care Team Providers Care Hematology Supervisor Name Role Phone PAULA ROBLEDO Unavailable PROBLEMS Type Condition ICD9-CM Code ZNG20-NS Code Onset Dates Condition S tatus SNOMED Code Problem Raynauds disease I73.00 Active 195 634810 Problem Venous insufficiency I87.2 Active 70730146 Problem Other chronic pain G89.29 Active 8 3971447 Problem Hypokalemia E87.6 Active 97040134 Problem Prediabetes R73.03 Active 20029270 2 Problem Low back pain M54.5 Active 891857 009 Problem Congenital deafness H90.5 Active 58152732 Problem Dysthymia F34.1 Active 95999479 Problem Neuropathy G62.9 Active [id number] ALLERGIES No Information ENCOUNTERS Encounter Location Date Diagnosis [facility] [address] [facility] [id number] [address] [place] [address] Jan, Neuropathy G62.9 [facility] [address] [place] [id number] [address] [place] [address] 14 Dec, 2019 Neuropathy G62.9 [facility] [address] [place] [id number] [address] [place] [address] Nov, Raynauds disease I73.00 ; Ve nous insufficiency I87.2 ; Prediabetes R73.03 and Neuropathy G62.9 [facility] [address] [facility] [id number] [address] [place] [address] Jun, Congenital deafness H90.5 [facility] [address] [facility] [id number] [address] [place] [address] Jun, Other chronic pain G89.29 [facility] [address] [place] [id number] [address] [place] [address] Jun, Acute kidney injury N17.9 [facility] [address] [address] Jan, Abscess of left knee L02.416 [facility] [address] [address] Jan, Prediabetes R73.03 ; Raynaud s disease I73.00 and Venous insufficiency I87.2 [place] [address] [address] Oct, Neuropathy G62.9 ; Low back pain M54.5 and URI (upper respiratory infection) J06.9 [place] [address] [address] Jul, Raynauds disease I73.00 and Hypokalemia E87.6 [place] [address] [address] May, Medicare annual wellness vis it, initial Z00.00 ; Dysthymia F34.1 ; Raynauds disease I73.00 ; Venous insufficiency I87.2 ; Congenital deafness H90.5 and Neuropathy G62.9 [place] [address] [address] Apr, [place] [address] [address] Apr, Prediabetes R73.03 ; Raynaud s disease I73.00 ; Venous insufficiency I87.2 ; Neuropathy G62.9 and Dysthymia F34.1 [place] [address] [address] March, [place] [address] [address] Sep, Hyperglycemia R73.9 [place] [address] [address] Sep, Hyperglycemia R73.9 [facility] [address] [place] [id number] [place] [address] Sep, Raynauds disease I73.00 ; Ve nous insufficiency I87.2 and Encounter for immunization Z23 [facility] [address] [address] Jun, [facility] [address] [address] May, [facility] [address] [address] May, Other chronic pain G89.29 [place] [address] [address] May, Raynauds disease I73.00 ; Ve nous insufficiency I87.2 and Low back pain M54.5 [facility] [address] [address] Dec, Raynauds disease I73.00 ; Ve nous insufficiency I87.2 ; Low back pain M54.5 and Other chronic pain G89.29 [facility] [address] [address] Nov, [facility] [address] [address] Nov, Muscle spasm M62.838 [facility] [address] [place] [id number] [address] [place] [address] Nov, [facility] [address] [address] Oct, Folliculitis L73.9 and Venou s insufficiency I87.2 [facility] [address] [place] [id number] [address] [place] [address] Sep, Dermatitis L30.9 and Raynaud s disease I73.00 [facility] [address] [id number] [address] [place] [address] Sep, Rash and nonspecific skin er uption R21 [facility] [address] [facility] [id number] [address] [place] [address] Aug, Skin infection L08.9 [facility] [address] [facility] [id number] [address] [place] [address] May, Infected smith L08.9 [facility] [address] [facility] [id number] [address] [place] [address] May, Skin infection L08.9 [facility] [address] [facility] [id number] [address] [place] [address] Dec, [facility] [address] [facility] [id number] [address] [place] [address] Nov, [facility] [address] [facility] [id number] [address] [place] [address] Nov, [facility] [address] [facility] [id number] [address] [place] [address] Nov, Raynauds disease I73.00 [facility] [address] [facility] [id number] [address] [place] [address] Nov, Raynauds disease I73.00 ; Le g cramps R25.2 ; Venous insufficiency I87.2 and Routine adult health maintenance Z00.00 [facility] [address] [facility] [id number] [address] [place] [address] Jul, Infected sebaceous cyst 706. 2 [facility] [address] [facility] [id number] [address] [place] [address] Jun, [facility] [address] [facility] [id number] [address] [place] [address] Jun, [facility] [address] [facility] [id number] [address] [place] [address] Jun, Venous insufficiency 459.81 and Raynauds disease 443.0 [facility] [address] [id number] [address] [place] [address], [place] [address] Feb, [facility] [address] [id number] [address] [place] [address] Feb, [facility] [address] [id number] [address] [place] [address] Jan, [facility] [address] [id number] [address] [place] [address] Jan, [facility] [address] [id number] [address] [place] [address], [place] [address] Dec, [facility] [address] [id number] [address] [place] [address] Dec, [facility] [address] [id number] [address] [place] [address] Dec, [facility] [address] [id number] [address] [place] [address] Dec, [facility] [address] [id number] [address] [place] [address] Nov, [facility] [address] [id number] [address] [place] [address] Nov, [facility] [address] [id number] [address] [place] [address] Oct, [facility] [address] [id number] [address] [place] [address] Oct, [facility] [address] [id number] [address] [place] [address] Aug, [facility] [address] [id number] [address] [place] [address] Aug, [facility] [address] [id number] [address] [place] [address] Aug, [facility] [address] [id number] [facility] [place] [address] Jul, [facility] [address] [id number] [facility] [place] [address] Jul, [facility] [address] [id number] [facility] [place] [address] Jul, [facility] [address] [id number] [facility] [place] [address] Jul, [facility] [address] [id number] [facility] [place] [address] Jun, [facility] [address] [id number] [address] [place] [address], [place] [address] Jun, [facility] [address] [id number] [address] [place] [address], [place] [address] Jun, [facility] [address] [id number] [address] [place] [address], [place] [address] Jun, [facility] [address] [id number] [address] [place] [address], [place] [address] May, [facility] [address] [id number] [address] [place] [address], [place] [address] May, [facility] [address] [id number] [address] [place] [address], [place] [address] May, [facility] [address] [id number] [address] [place] [address], [place] [address] May, [facility] [address] [id number] [address] [place] [address], [place] [address] May, [facility] [address] [id number] [address] [place] [address], [place] [address] May, [facility] [address] [id number] [address] [place] [address], [place] [address] May, [facility] [address] [id number] [address] [place] [address], [place] [address] Apr, [facility] [address] [id number] [address] [place] [address], [place] [address] Apr, [facility] [address] [id number] [address] [place] [address], [place] [address] Apr, [facility] [address] [id number] [address] [place] [address], [place] [address] Apr, [facility] [address] [id number] [address] [place] [address], [place] [address] March, [facility] [address] [id number] [address] [place] [address], [place] [address] March, [facility] [address] [id number] [address] [place] [address], [place] [address] March, [facility] [address] [id number] [address] [place] [address], [place] [address] March, [facility] [address] [id number] [address] [place] [address], [place] [address] March, [facility] [address] [id number] [address] [place] [address], [place] [address] March, [facility] [address] [id number] [address] [place] [address], [place] [address] March, [facility] [address] [id number] [address] [place] [address], [place] [address] Feb, [facility] [address] [id number] [address] [place] [address], [place] [address] Feb, [facility] [address] [place] [id number] Feb, [facility] [address] [id number] [address] [place] [address], [place] [address] Feb, [facility] [address] [id number] [address] [place] [address], [place] [address] Feb, [facility] [address] [id number] [address] [place] [address], [place] [address] Feb, [facility] [address] [id number] [facility] [place] [address] Jan, [facility] [address] [id number] [facility] [place] [address] Jan, [facility] [address] [id number] [facility] [place] [address] Jan, [facility] [address] [id number] [facility] [place] [address] Jan, [facility] [address] [id number] [facility] [place] [address] Jan, [facility] [address] [id number] [address] [place] [address], [place] [address] Jan, [facility] [address] [id number] [address] [place] [address], [place] [address] Jan, [facility] [address] [id number] [address] [place] [address], [place] [address] Jan, [facility] [address] [id number] [address] [place] [address], [place] [address] Jan, [facility] [address] [id number] [address] [place] [address], [place] [address] Jan, [facility] [address] [id number] [address] [place] [address], [place] [address] Jan, [facility] [address] [id number] [address] [place] [address], [place] [address] Jan, [facility] [address] [id number] [address] [place] [address], [place] [address] Jan, [facility] [address] [id number] [address] [place] [address], [place] [address] Jan, [facility] [address] [id number] [address] [place] [address], [place] [address] Jan, [facility] [address] [id number] [address] [place] [address], [place] [address] Jan, [facility] [address] [id number] [address] [place] [address], [place] [address] Jan, [facility] [address] [id number] [address] [place] [address], [place] [address] Jan, [facility] [address] [id number] [address] [place] [address], [place] [address] Dec, [facility] [address] [id number] [address] [place] [address], [place] [address] Dec, [facility] [address] [id number] [address] [place] [address], [place] [address] Dec, [facility] [address] [id number] [address] [place] [address], [place] [address] Dec, [facility] [address] [id number] [address] [place] [address], [place] [address] 14 Dec, 2013 [facility] [address] [id number] [address] [place] [address], [place] [address] Dec, [facility] [address] [id number] [address] [place] [address], [place] [id number] 07 Dec, 2013 [facility] [address] [id number] [address] [place] [address], [place] [address] Dec, [facility] [address] [id number] [address] [place] [address], [place] [id number] Dec, [facility] [address] [id number] [address] [place] [address], [place] [address] Dec, [facility] [address] [id number] [address] [place] [address], [place] [address] Dec, [facility] [address] [id number] [address] [place] [address], [place] [address] Dec, [facility] [address] [id number] [address] [place] [address] Nov, [facility] [address] [id number] [address] [place] [address], [place] [address] Nov, [facility] [address] [id number] [address] [place] [address], [place] [id number] Nov, [facility] [address] [id number] [address] [place] [address], [place] [address] Nov, [facility] [address] [id number] [address] [place] [address], [place] [address] Nov, [facility] [address] [id number] [address] [place] [address], [place] [address] Nov, [facility] [address] [id number] [address] [place] [address], [place] [address] Nov, [facility] [address] [id number] [address] [place] [address], [place] [address] Oct, [facility] [address] [id number] [address] [place] [address], [place] [address] Oct, [facility] [address] [id number] [address] [place] [address], [place] [address] Sep, [facility] [address] [id number] [address] [place] [address], [place] [address] Sep, [facility] [address] [id number] [address] [place] [address], [place] [address] Sep, [facility] [address] [id number] [address] [place] [address] Sep, [facility] [address] [id number] [address] [place] [address], [place] [address] Aug, [facility] [address] [id number] [address] [place] [address], [place] [address] Aug, [facility] [address] [id number] [address] [place] [address] Aug, [facility] [address] [id number] [address] [place] [address], [place] [address] Jul, [facility] [address] [id number] [address] [place] [address], [place] [address] Jul, [facility] [address] [id number] [address] [place] [address], [place] [address] Jun, [facility] [address] [id number] [address] [place] [address], [place] [address] Jun, [facility] [address] [id number] [address] [place] [address], [place] [address] Jun, [facility] [address] [id number] [address] [place] [address], [place] [address] May, [facility] [address] [id number] [address] [place] [address], [place] [id number] May, [facility] [address] [id number] [address] [place] [address], [place] [address] May, [facility] [address] [id number] [address] [place] [address], [place] [address] Apr, [facility] [address] [id number] [address] [place] [address], [place] [address] Apr, [facility] [address] [id number] [address] [place] [address], [place] [id number] March, [facility] [address] [id number] [address] [place] [address], [place] [address] Feb, [facility] [address] [id number] [address] [place] [address], [place] [address] Jan, [facility] [address] [id number] [address] [place] [address], [place] [address] Jan, [facility] [address] [id number] [address] [place] [address], [place] [id number] 07 Dec, 2012 [facility] [address] [id number] [address] [place] [address], [place] [address] Nov, [facility] [address] [id number] [address] [place] [address], [place] [id number] Oct, [facility] [address] [id number] [address] [place] [address], [place] [id number] Oct, [facility] [address] [id number] [address] [place] [address], [place] [id number] Sep, [facility] [address] [id number] [address] [place] [address], [place] [id number] Sep, [facility] [address] [id number] [address] [place] [address], [place] [id number] Sep, [facility] [address] [id number] [address] [place] [address], [place] [id number] Sep, [facility] [address] [id number] [address] [place] [address], [place] [id number] Sep, [facility] [address] [id number] [address] [place] [address], [place] [id number] Sep, [facility] [address] [id number] [address] [place] [address], [place] [id number] Sep, [facility] [address] [id number] [address] [place] [address], [place] [id number] Sep, [facility] [address] [id number] [address] [place] [address], [place] [id number] Jul, [facility] [address] [id number] [address] [place] [address], [place] [id number] Jun, [facility] [address] [id number] [address] [place] [address], [place] [id number] Jun, [facility] [address] [id number] [address] [place] [address], [place] [id number] 15 Jun, 2012 [facility] [address] [id number] [address] [place] [address], [place] [id number] 14 Jun, 2012 [facility] [address] [id number] [address] [place] [address], [place] [id number] 05 May, 2012 [facility] [address] [id number] [address] [place] [address], [place] [id number] 25 Apr, 2012 [facility] [address] [id number] [address] [place] [address], [place] [id number] Jan, [facility] [address] [id number] [address] [place] [address], [place] [id number] 14 Dec, 2011 [facility] [address] [id number] [address] [place] [address], [place] [id number] Dec, [facility] [address] [id number] [address] [place] [address], [place] [id number] Nov, [facility] [address] [id number] [address] [place] [address], [place] [id number] 19 Oct, 2011 [facility] [address] [id number] [address] [place] [address], [place] [id number] 19 Oct, 2011 [facility] [address] [id number] [address] [place] [address], [place] [id number] 18 Aug, 2011 [facility] [address] [id number] [address] [place] [address], [place] [id number] 18 Aug, 2011 [facility] [address] [id number] [address] [place] [address], [place] [id number] 18 Aug, 2011 [facility] [address] [id number] [address] [place] [address], [place] [id number] 14 Aug, 2011 [facility] [address] [id number] [address] [place] [address], [place] [id number] 11 Aug, 2011 [facility] [address] [id number] [address] [place] [address], [place] [id number] 11 Aug, 2011 [facility] [address] [id number] [address] [place] [address], [place] [id number] 19 May, 2011 [facility] [address] [id number] [address] [place] [address], [place] [id number] 13 Apr, 2011 [facility] [address] [id number] [address] [place] [address], [place] [id number] 18 Feb, 2011 [facility] [address] [id number] [address] [place] [address], [place] [id number] 28 Oct, 2010 [facility] [address] [id number] [address] [place] [address], [place] [id number] 21 Oct, 2010 [facility] [address] [id number] [address] [place] [address], [place] [id number] 07 Oct, 2010 [facility] [address] [id number] [address] [place] [address], [place] [id number] 09 Sep, 2010 [facility] [address] [id number] [address] [place] [address], [place] [id number] 26 Aug, 2010 [facility] [address] [id number] [address] [place] [address], [place] [id number] 16 Jul, 2010 [facility] [address] [id number] [address] [place] [id number] 13 May, 2010 [facility] [address] [id number] [address] [place] [address], [place] [id number] Dec, [facility] [address] [id number] [address] [place] [id number] Nov, [facility] [address] [id number] [address] [place] [id number] 14 Oct, 2009 [facility] [facility] [address] [id number] [address] [place] [id number] 27 Sep, 2009 [facility] [address] [id number] [address] [place] [address], [place] [id number] 05 Sep, 2009 [facility] [address] [id number] [address] [place] [id number] 14 Jul, 2009 [facility] [address] [id number] [address] [place] [id number] 17 Jun, 2009 [facility] [address] [id number] [address] [place] [id number] May, IMMUNIZATIONS No Known Immunizations SOCIAL HISTORY Never Assessed REASON FOR VISIT PLAN OF CARE VITAL SIGNS Height 73 in 2013-07-15 Weight 230 lbs 2013-07-15 Temperature 98.7 degrees Fahrenheit 2013-07-15 Heart Rate 72 bpm 2013-07-15 Respiratory Rate 20 2013-07-15 Blood pressure systolic 112 mmHg 2013-07-15 Blood pressure diastolic 62 mmHg 2013-07-15 MEDICATIONS Unknown Medications RESULTS No Results PROCEDURES Procedure Date Ordered Result Body Site BASIC METABOLIC PANEL Jul 15, 2013 VENIPUNCT, ROUTINE* Jul 15, 2013 INSTRUCTIONS MEDICATIONS ADMINISTERED No Known Medications [...]
--- OUTSIDE RECORDS SUMMARY | 2020-06-11 20:49 | XMS REPORT ---
Author Author Jd Fagan r Organization [facility] Address Unknown Phone Unavailable Care Team Providers Care Architectural Manager Name Role Phone Migration, Doctor Unavailable Unavailable PROBLEMS Type Condition ICD9-CM Code VEW26-DD Code Onset Dates Condition S tatus SNOMED Code Problem Raynauds disease I73.00 Active 195 349815 Problem Venous insufficiency I87.2 Active 09506312 Problem Other chronic pain G89.29 Active 8 1156786 Problem Hypokalemia E87.6 Active 05992846 Problem Prediabetes R73.03 Active 56413676 2 Problem Low back pain M54.5 Active 286690 009 Problem Congenital deafness H90.5 Active 03469938 Problem Dysthymia F34.1 Active 16830267 Problem Neuropathy G62.9 Active [id number] ALLERGIES No Information ENCOUNTERS Encounter Location Date Diagnosis [facility] [address] [facility] [id number] [address] [place] [address] Jan, Neuropathy G62.9 [facility] [address] [facility] [id number] [address] [place] [address] 14 Dec, 2019 Neuropathy G62.9 [facility] [address] [facility] [id number] [address] [place] [address] Nov, Raynauds disease I73.00 ; Ve nous insufficiency I87.2 ; Prediabetes R73.03 and Neuropathy G62.9 [facility] [address] [facility] [id number] [address] [place] [address] Jun, Congenital deafness H90.5 [facility] [address] [facility] [id number] [address] [place] [address] Jun, Other chronic pain G89.29 [facility] [address] [facility] [id number] [address] [place] [address] Jun, Acute kidney injury N17.9 [facility] [address] [facility] [id number] [address] [place] [address] Jan, Abscess of left knee L02.416 [facility] [address] [facility] [id number] [address] [place] [address] Jan, Prediabetes R73.03 ; Raynaud s disease I73.00 and Venous insufficiency I87.2 [facility] [address] [place] [id number] [address] [place] [address] Oct, Neuropathy G62.9 ; Low back pain M54.5 and URI (upper respiratory infection) J06.9 [facility] [address] [facility] [id number] [address] [place] [address] Jul, Raynauds disease I73.00 and Hypokalemia E87.6 [place] [address] [place] [id number] [address] [place] [address] May, Medicare annual wellness vis it, initial Z00.00 ; Dysthymia F34.1 ; Raynauds disease I73.00 ; Venous insufficiency I87.2 ; Congenital deafness H90.5 and Neuropathy G62.9 [place] [address] [place] [id number] [address] [place] [address] Apr, [place] [id number] [place] [address] Apr, Prediabetes R73.03 ; Raynaud s disease I73.00 ; Venous insufficiency I87.2 ; Neuropathy G62.9 and Dysthymia F34.1 [place] [address] [facility] [id number] [address] [place] [address] March, [place] [address] [address] Sep, Hyperglycemia R73.9 [facility] [address] [place] [id number] [address] [place] [address] Sep, Hyperglycemia R73.9 [place] [address] [address] Sep, Raynauds disease I73.00 ; Ve nous insufficiency I87.2 and Encounter for immunization Z23 [facility] [address] [address] Jun, [facility] [address] [address] May, [facility] [address] [address] May, Other chronic pain G89.29 [place] [address] [address] May, Raynauds disease I73.00 ; Ve nous insufficiency I87.2 and Low back pain M54.5 [place] [address] [address] Dec, Raynauds disease I73.00 ; Ve nous insufficiency I87.2 ; Low back pain M54.5 and Other chronic pain G89.29 [place] [address] [address] Nov, [facility] [address] [address] Nov, Muscle spasm M62.838 [facility] [address] [address] Nov, [facility] [address] [address] Oct, Folliculitis L73.9 and Venou s insufficiency I87.2 [facility] [address] [address] Sep, Dermatitis L30.9 and Raynaud s disease I73.00 [facility] [address] [address] Sep, Rash and nonspecific skin er uption R21 [facility] [address] [id number] [address] [place] [address] Aug, Skin infection L08.9 [facility] [address] [facility] [id number] [address] [place] [address] May, Infected smith L08.9 [facility] [address] [facility] [id number] [address] [place] [address] May, Skin infection L08.9 [facility] [address] [id number] [address] [place] [address] Dec, [facility] [address] [facility] [id number] [address] [place] [address] Nov, [facility] [address] [facility] [id number] [address] [place] [address] Nov, [facility] [address] [facility] [id number] [address] [place] [address] Nov, Raynauds disease I73.00 [facility] [address] [facility] [id number] [address] [place] [address] Nov, Raynauds disease I73.00 ; Le g cramps R25.2 ; Venous insufficiency I87.2 and Routine adult health maintenance Z00.00 [facility] [address] [facility] [id number] [address] [place] [address] Jul, Infected sebaceous cyst 706. 2 [facility] [address] [facility] [id number] [address] [place] [address] Jun, [facility] [address] [facility] [id number] [address] [place] [address] Jun, [facility] [address] [facility] [id number] [address] [place] [address] Jun, Venous insufficiency 459.81 and Raynauds disease 443.0 [facility] [address] [id number] [address] [place] [address], [place] [address] 14 Feb, 2015 [facility] [address] [id number] [address] [place] [address], [place] [address] Feb, [facility] [address] [id number] [address] [place] [address], [place] [address] Jan, [facility] [address] [id number] [address] [place] [address], [place] [address] Jan, [facility] [address] [id number] [address] [place] [address], [place] [address] Dec, [facility] [address] [id number] [address] [place] [address], [place] [address] Dec, [facility] [address] [id number] [address] [place] [address], [place] [address] Dec, [facility] [address] [id number] [address] [place] [address], [place] [address] Dec, [facility] [address] [id number] [address] [place] [address], [place] [address] Nov, [facility] [address] [id number] [address] [place] [address], [place] [address] Nov, [facility] [address] [id number] [address] [place] [address], [place] [address] Oct, [facility] [address] [id number] [address] [place] [address], [place] [address] Oct, [facility] [address] [id number] [address] [place] [address], [place] [address] Aug, [facility] [address] [id number] [address] [place] [address], [place] [address] Aug, [facility] [address] [id number] [address] [place] [address], [place] [address] Aug, [facility] [address] [id number] [address] [place] [address], [place] [address] Jul, [facility] [address] [id number] [facility] [place] [address] Jul, [facility] [address] [id number] [address] [place] [address], [place] [address] Jul, [facility] [address] [id number] [address] [place] [address], [place] [address] Jul, [facility] [address] [id number] [address] [place] [address], [place] [address] Jun, [facility] [address] [id number] [address] [place] [address], [place] [address] Jun, [facility] [address] [id number] [address] [place] [address], [place] [address] Jun, [facility] [address] [id number] [address] [place] [address], [place] [address] Jun, [facility] [address] [id number] [address] [place] [address], [place] [address] May, [facility] [address] [id number] [address] [place] [address], [place] [address] May, [facility] [address] [id number] [address] [place] [address], [place] [address] May, [facility] [address] [id number] [address] [place] [address], [place] [address] May, [facility] [address] [id number] [address] [place] [address], [place] [address] May, [facility] [address] [id number] [address] [place] [address], [place] [address] May, [facility] [address] [id number] [address] [place] [address], [place] [address] May, [facility] [address] [id number] [address] [place] [address], [place] [address] Apr, [facility] [address] [id number] [address] [place] [address], [place] [address] Apr, [facility] [address] [id number] [address] [place] [address], [place] [address] Apr, [facility] [address] [id number] [address] [place] [address], [place] [address] Apr, [facility] [address] [id number] [address] [place] [address], [place] [address] March, [facility] [address] [id number] [address] [place] [address], [place] [address] March, [facility] [address] [id number] [address] [place] [address], [place] [address] March, [facility] [address] [id number] [address] [place] [address], [place] [address] March, [facility] [address] [id number] [address] [place] [address], [place] [address] March, [facility] [address] [id number] [address] [place] [address], [place] [address] March, [facility] [address] [id number] [address] [place] [address], [place] [address] March, [facility] [address] [id number] [address] [place] [address], [place] [address] Feb, [facility] [address] [id number] [address] [place] [address], [place] [address] Feb, [address] [id number] Feb, [facility] [address] [id number] [address] [place] [address], [place] [address] Feb, [facility] [address] [id number] [address] [place] [address], [place] [address] Feb, [facility] [address] [id number] [address] [place] [address], [place] [address] Feb, [facility] [address] [id number] [facility] [place] [address] 28 Jan, 2014 [facility] [address] [id number] [facility] [place] [address] Jan, [facility] [address] [id number] [facility] [place] [address] Jan, [facility] [address] [id number] [facility] [place] [address] Jan, [facility] [address] [id number] [facility] [place] [address] Jan, [facility] [address] [id number] [address] [place] [address], [place] [address] Jan, [facility] [address] [id number] [address] [place] [address], [place] [address] Jan, [facility] [address] [id number] [address] [place] [address], [place] [address] Jan, [facility] [address] [id number] [address] [place] [address], [place] [address] Jan, [facility] [address] [id number] [address] [place] [address], [place] [address] Jan, [facility] [address] [id number] [address] [place] [address], [place] [address] Jan, [facility] [address] [id number] [address] [place] [address], [place] [address] 17 Jan, 2014 [facility] [address] [id number] [address] [place] [address], [place] [address] 17 Jan, 2014 [facility] [address] [id number] [address] [place] [address], [place] [address] 17 Jan, 2014 [facility] [address] [id number] [facility] [place] [address] 10 Jan, 2014 [facility] [address] [id number] [address] [place] [address], [place] [address] Jan, [facility] [address] [id number] [address] [place] [address], [place] [address] Jan, [facility] [address] [id number] [address] [place] [address], [place] [address] Jan, [facility] [address] [id number] [address] [place] [address], [place] [address] Dec, [facility] [address] [id number] [address] [place] [address], [place] [address] Dec, [facility] [address] [id number] [address] [place] [address], [place] [address] Dec, [facility] [address] [id number] [address] [place] [address], [place] [address] Dec, [facility] [address] [id number] [address] [place] [address], [place] [address] 14 Dec, 2013 [facility] [address] [id number] [address] [place] [address], [place] [address] Dec, [facility] [address] [id number] [address] [place] [address], [place] [address] 07 Dec, 2013 [facility] [address] [id number] [address] [place] [address], [place] [address] Dec, [facility] [address] [id number] [address] [place] [address], [place] [address] Dec, [facility] [address] [id number] [address] [place] [address], [place] [address] Dec, [facility] [address] [id number] [address] [place] [address], [place] [address] Dec, [facility] [address] [id number] [address] [place] [address], [place] [address] Dec, [facility] [address] [id number] [address] [place] [address], [place] [address] Nov, [facility] [address] [id number] [address] [place] [address], [place] [address] Nov, [facility] [address] [id number] [address] [place] [address], [place] [address] Nov, [facility] [address] [id number] [address] [place] [address], [place] [address] Nov, [facility] [address] [id number] [address] [place] [address], [place] [address] Nov, [facility] [address] [id number] [address] [place] [address], [place] [address] Nov, [facility] [address] [id number] [address] [place] [address], [place] [address] Nov, [facility] [place] [address] [id number] [address] [place] [address], [place] [address] Oct, [facility] [address] [id number] [address] [place] [address], [place] [address] Oct, [facility] [place] [address] [id number] [address] [place] [address], [place] [address] Sep, [facility] [address] [id number] [address] [place] [address], [place] [address] Sep, [facility] [address] [id number] [address] [place] [address], [place] [address] Sep, [facility] [address] [id number] [address] [place] [address], [place] [address] Sep, [facility] [address] [id number] [address] [place] [address], [place] [address] Aug, [facility] [address] [id number] [address] [place] [address], [place] [address] Aug, [facility] [address] [id number] [address] [place] [address], [place] [address] Aug, [facility] [address] [id number] [address] [place] [address], [place] [address] Jul, [facility] [place] [address] [id number] [address] [place] [address], [place] [address] Jul, [facility] [address] [id number] [address] [place] [address], [place] [address] Jun, [facility] [address] [id number] [address] [place] [address], [place] [address] Jun, [facility] [address] [id number] [address] [place] [address], [place] [address] Jun, [facility] [address] [id number] [address] [place] [address], [place] [address] May, [facility] [address] [id number] [address] [place] [address], [place] [address] May, [facility] [address] [id number] [address] [place] [address], [place] [address] May, [facility] [address] [id number] [address] [place] [address], [place] [address] Apr, [facility] [address] [id number] [address] [place] [address], [place] [address] Apr, [facility] [address] [id number] [address] [place] [address], [place] [address] March, [facility] [address] [id number] [address] [place] [address], [place] [address] Feb, [facility] [address] [id number] [address] [place] [address], [place] [address] Jan, [facility] [address] [id number] [address] [place] [address], [place] [address] Jan, [facility] [address] [id number] [address] [place] [address], [place] [address] Dec, [facility] [address] [id number] [address] [place] [address], [place] [address] Nov, [facility] [address] [id number] [address] [place] [address] [place] [address] Oct, [facility] [address] [id number] [address] [place] [address], [place] [phone] Oct, [facility] [address] [id number] [address] [place] [address], [place] [phone] Sep, [facility] [address] [id number] [address] [place] [address], [place] [phone] Sep, [facility] [address] [id number] [address] [place] [address], [place] [address] Sep, [facility] [address] [id number] [address] [place] [address], [place] [address] Sep, [facility] [address] [id number] [address] [place] [address], [place] [address] Sep, [facility] [address] [id number] [address] [place] [address], [place] [phone] Sep, [facility] [address] [id number] [address] [place] [address], [place] [address] Sep, [facility] [address] [id number] [address] [place] [address], [place] [address] Sep, [facility] [address] [id number] [address] [place] [address], [place] [address] Jul, [facility] [address] [id number] [address] [place] [address], [place] [address] Jun, [facility] [address] [id number] [address] [place] [address], [place] [phone] Jun, [facility] [address] [id number] [address] [place] [address], [place] [address] Jun, [facility] [address] [id number] [address] [place] [address], [place] [id number] Jun, [facility] [address] [id number] [address] [place] [address], [place] [phone] May, [facility] [address] [id number] [address] [place] [address], [place] [address] Apr, [facility] [address] [id number] [address] [place] [address], [place] [phone] Jan, [facility] [address] [id number] [address] [place] [address], [place] [id number] 14 Dec, 2011 [facility] [address] [id number] [address] [place] [address], [place] [phone] 10 Dec, 2011 [facility] [address] [id number] [address] [place] [address], [place] [phone] Nov, [facility] [address] [id number] [address] [place] [address], [place] [phone] 19 Oct, 2011 [facility] [address] [id number] [address] [place] [address], [place] [phone] 19 Oct, 2011 [facility] [address] [id number] [address] [place] [address], [place] [phone] 18 Aug, 2011 [facility] [address] [id number] [address] [place] [address], [place] [id number] 18 Aug, 2011 [facility] [address] [id number] [address] [place] [address], [place] [id number] 18 Aug, 2011 [facility] [address] [id number] [address] [place] [address], [place] [phone] 14 Aug, 2011 [facility] [address] [id number] [address] [place] [id number] 11 Aug, 2011 [facility] [address] [id number] [address] [place] [address], [place] [id number] 11 Aug, 2011 [facility] [address] [id number] [address] [place] [address], [place] [id number] 19 May, 2011 [facility] [address] [id number] [address] [place] [address], [place] [phone] 13 Apr, 2011 [facility] [address] [id number] [address] [place] [id number] 18 Feb, 2011 [facility] [address] [id number] [address] [place] [id number] 28 Oct, 2010 [facility] [address] [id number] [address] [place] [id number] Oct, [facility] [address] [id number] [address] [place] [id number] Oct, [facility] [address] [id number] [address] [place] [id number] Sep, [facility] [address] [id number] [address] [place] [id number] Aug, [facility] [address] [id number] [address] [place] [id number] 16 Jul, 2010 [facility] [address] [id number] [address] [place] [phone] May, [facility] [address] [id number] [address] [place] [id number] Dec, [facility] [address] [id number] [address] [place] [id number] Nov, [facility] [address] [address] [id number] [address] [place] [id number] 14 Oct, 2009 [facility] [address] [id number] [address] [place] [phone] Sep, [facility] [address] [id number] [address] [place] [id number] 05 Sep, 2009 [facility] [address] [id number] [address] [place] [id number] 14 Jul, 2009 [facility] [address] [id number] [address] [place] [id number] 17 Jun, 2009 [facility] [address] [id number] [address] [place] [id number] 13 May, 2009 IMMUNIZATIONS No Known Immunizations SOCIAL HISTORY Never Assessed REASON FOR VISIT PLAN OF CARE VITAL SIGNS MEDICATIONS Unknown Medications RESULTS No Results PROCEDURES [...] left LE Surgical History Umbilical hernia repair ([facility]) 2004 Surgical History Bilat inguinal hernia repair Surgical History Orthopedic surgery right rian t/ankle fracture with surgical repair Surgical History tonsillectomy Hospitalization History surgeries Hospitalization History blood clots in the leg
--- OUTSIDE RECORDS SUMMARY | 2020-06-11 20:49 | XMS REPORT ---
Author Author Jd ROBLEDO Organization [facility] Address [address] [place] [address] Care Team Providers Care Breakfast Supervisor Name Role Phone PAULA ROBLEDO Unavailable PROBLEMS Type Condition ICD9-CM Code [id number] Code Onset Dates Condition S tatus SNOMED Code Problem Raynauds disease I73.00 Active 195 475103 Problem Venous insufficiency I87.2 Active 65843433 Problem Other chronic pain G89.29 Active 8 8141048 Problem Hypokalemia E87.6 Active 38682760 Problem Prediabetes R73.03 Active 60434177 2 Problem Low back pain M54.5 Active 932671 009 Problem Congenital deafness H90.5 Active 78678488 Problem Dysthymia F34.1 Active 27226262 Problem Neuropathy G62.9 Active [id number] ALLERGIES No Information ENCOUNTERS Encounter Location Date Diagnosis [facility] [address] [id number] [address] [place] [address] Jan, Neuropathy G62.9 [facility] [address] [id number] [address] [place] [address] 14 Dec, 2019 Neuropathy G62.9 [facility] [address] [id number] [address] [place] [address] Nov, Raynauds disease I73.00 ; Ve nous insufficiency I87.2 ; Prediabetes R73.03 and Neuropathy G62.9 [facility] [address] [facility] [place] [facility] [id number] [address] [place] [address] Jun, Congenital deafness H90.5 [facility] [address] [facility] [place] [id number] [address] [place] [address] Jun, Other chronic pain G89.29 [facility] [address] [id number] [address] [place] [address] Jun, Acute kidney injury N17.9 [facility] [address] [address] Jan, Abscess of left knee L02.416 [facility] [address] [address] Jan, Prediabetes R73.03 ; Raynaud s disease I73.00 and Venous insufficiency I87.2 [place] [address] [address] Oct, Neuropathy G62.9 ; Low back pain M54.5 and URI (upper respiratory infection) J06.9 [place] [address] [address] Jul, Raynauds disease I73.00 and Hypokalemia E87.6 [place] [address] [address] May, Medicare annual wellness vis it, initial Z00.00 ; Dysthymia F34.1 ; Raynauds disease I73.00 ; Venous insufficiency I87.2 ; Congenital deafness H90.5 and Neuropathy G62.9 [place] [address] [address] Apr, [place] [address] [address] Apr, Prediabetes R73.03 ; Raynaud s disease I73.00 ; Venous insufficiency I87.2 ; Neuropathy G62.9 and Dysthymia F34.1 [place] [address] [address] March, [place] [address] [address] Sep, Hyperglycemia R73.9 [place] [address] [address] Sep, Hyperglycemia R73.9 [facility] [id number] [place] [address] Sep, Raynauds disease I73.00 ; Ve nous insufficiency I87.2 and Encounter for immunization Z23 [facility] [address] [address] Jun, [facility] [address] [address] May, [facility] [address] [address] May, Other chronic pain G89.29 [place] [address] [address] May, Raynauds disease I73.00 ; Ve nous insufficiency I87.2 and Low back pain M54.5 [facility] [address] [address] Dec, Raynauds disease I73.00 ; Ve nous insufficiency I87.2 ; Low back pain M54.5 and Other chronic pain G89.29 [facility] [address] [address] Nov, [facility] [address] [address] Nov, Muscle spasm M62.838 [facility] [address] [id number] [address] [place] [address] Nov, [facility] [address] [address] Oct, Folliculitis L73.9 and Venou s insufficiency I87.2 [facility] [address] [id number] [address] [place] [address] Sep, Dermatitis L30.9 and Raynaud s disease I73.00 [facility] [address] [id number] [address] [place] [address] Sep, Rash and nonspecific skin er uption R21 [facility] [address] [facility] [place] [id number] [address] [place] [address] Aug, Skin infection L08.9 [facility] [address] [facility] [place] [id number] [address] [place] [address] May, Infected smith L08.9 [facility] [address] [facility] [place] [id number] [address] [place] [address] May, Skin infection L08.9 [facility] [address] [facility] [place] [id number] [address] [place] [address] Dec, [facility] [address] [facility] [place] [id number] [address] [place] [address] Nov, [facility] [address] [facility] [place] [id number] [address] [place] [address] Nov, [facility] [address] [facility] [place] [id number] [address] [place] [address] Nov, Raynauds disease I73.00 [facility] [address] [facility] [id number] [address] [place] [address] Nov, Raynauds disease I73.00 ; Le g cramps R25.2 ; Venous insufficiency I87.2 and Routine adult health maintenance Z00.00 [facility] [address] [facility] [place] [id number] [address] [place] [address] Jul, Infected sebaceous cyst 706. 2 [facility] [address] [facility] [place] [id number] [address] [place] [address] Jun, [facility] [address] [facility] [place] [id number] [address] [place] [address] Jun, [facility] [address] [facility] [place] [id number] [address] [place] [address] Jun, Venous insufficiency 459.81 and Raynauds disease 443.0 [facility] [address] [id number] [address] [place] [address], [place] [address] Feb, [facility] [address] [id number] [address] [place] [address] Feb, [facility] [address] [id number] [address] [place] [address] Jan, [facility] [address] [id number] [address] [place] [address] Jan, [facility] [address] [id number] [address] [place] [address], [place] [address] Dec, [facility] [address] [id number] [address] [place] [address] Dec, [facility] [address] [id number] [address] [place] [address] Dec, [facility] [address] [id number] [address] [place] [address] Dec, [facility] [address] [id number] [address] [place] [address] Nov, [facility] [address] [id number] [address] [place] [address] Nov, [facility] [address] [id number] [address] [place] [address] Oct, [facility] [address] [id number] [address] [place] [address] Oct, [facility] [address] [id number] [address] [place] [address] Aug, [facility] [address] [id number] [address] [place] [address] Aug, [facility] [address] [id number] [address] [place] [address] Aug, [facility] [address] [id number] [facility] [place] [address] Jul, [facility] [address] [id number] [facility] [place] [address] Jul, [facility] [address] [id number] [facility] [place] [address] Jul, [facility] [address] [id number] [facility] [place] [address] Jul, [facility] [address] [id number] [facility] [place] [address] Jun, [facility] [address] [id number] [address] [place] [address], [place] [address] Jun, [facility] [address] [id number] [address] [place] [address], [place] [address] Jun, [facility] [address] [id number] [address] [place] [address], [place] [address] Jun, [facility] [address] [id number] [address] [place] [address], [place] [address] May, [facility] [address] [id number] [address] [place] [address], [place] [address] May, [facility] [address] [id number] [address] [place] [address], [place] [address] May, [facility] [address] [id number] [address] [place] [address], [place] [address] May, [facility] [address] [id number] [address] [place] [address], [place] [address] May, [facility] [address] [id number] [address] [place] [address], [place] [address] May, [facility] [address] [id number] [address] [place] [address], [place] [address] May, [facility] [address] [id number] [address] [place] [address], [place] [address] Apr, [facility] [address] [id number] [address] [place] [address], [place] [address] Apr, [facility] [address] [id number] [address] [place] [address], [place] [address] Apr, [facility] [address] [id number] [address] [place] [address], [place] [address] Apr, [facility] [address] [id number] [address] [place] [address], [place] [address] March, [facility] [address] [id number] [address] [place] [address], [place] [address] March, [facility] [address] [id number] [address] [place] [address], [place] [address] March, [facility] [address] [id number] [address] [place] [address], [place] [address] March, [facility] [address] [id number] [address] [place] [address], [place] [address] March, [facility] [address] [id number] [address] [place] [address], [place] [address] March, [facility] [address] [id number] [address] [place] [address], [place] [address] March, [facility] [address] [id number] [address] [place] [address], [place] [address] Feb, [facility] [address] [id number] [address] [place] [address], [place] [address] Feb, [facility] [address] [place] [id number] Feb, [facility] [address] [id number] [address] [place] [address], [place] [address] Feb, [facility] [address] [id number] [address] [place] [address], [place] [address] Feb, [facility] [address] [id number] [address] [place] [address], [place] [address] Feb, [facility] [address] [id number] [facility] [place] [address] Jan, [facility] [address] [id number] [facility] [place] [address] Jan, [facility] [address] [id number] [facility] [place] [address] Jan, [facility] [address] [id number] [facility] [place] [address] Jan, [facility] [address] [id number] [facility] [place] [address] Jan, [facility] [address] [id number] [address] [place] [address], [place] [address] Jan, [facility] [address] [id number] [address] [place] [address], [place] [address] Jan, [facility] [address] [id number] [address] [place] [address], [place] [address] Jan, [facility] [address] [id number] [address] [place] [address], [place] [address] Jan, [facility] [address] [id number] [address] [place] [address], [place] [address] Jan, [facility] [address] [id number] [address] [place] [address], [place] [address] Jan, [facility] [address] [id number] [address] [place] [address], [place] [address] Jan, [facility] [address] [id number] [address] [place] [address], [place] [address] Jan, [facility] [address] [id number] [address] [place] [address], [place] [address] Jan, [facility] [address] [id number] [address] [place] [address], [place] [address] Jan, [facility] [address] [id number] [address] [place] [address], [place] [address] Jan, [facility] [address] [id number] [address] [place] [address], [place] [address] Jan, [facility] [address] [id number] [address] [place] [address], [place] [address] Jan, [facility] [address] [id number] [address] [place] [address], [place] [address] Dec, [facility] [address] [id number] [address] [place] [address], [place] [address] Dec, [facility] [address] [id number] [address] [place] [address], [place] [address] Dec, [facility] [address] [id number] [address] [place] [address], [place] [address] Dec, [facility] [address] [id number] [address] [place] [address], [place] [address] 14 Dec, 2013 [facility] [address] [id number] [address] [place] [address], [place] [address] Dec, [facility] [address] [id number] [address] [place] [address], [place] [address] 07 Dec, 2013 [facility] [address] [id number] [address] [place] [address], [place] [address] Dec, [facility] [address] [id number] [address] [place] [address], [place] [address] Dec, [facility] [address] [id number] [address] [place] [address], [place] [address] Dec, [facility] [address] [id number] [address] [place] [address], [place] [address] Dec, [facility] [address] [id number] [address] [place] [address], [place] [address] Dec, [facility] [address] [id number] [address] [place] [address] Nov, [facility] [address] [id number] [address] [place] [address], [place] [address] Nov, [facility] [address] [id number] [address] [place] [address], [place] [address] Nov, [facility] [address] [id number] [address] [place] [address], [place] [address] Nov, [facility] [address] [id number] [address] [place] [address], [place] [address] Nov, [facility] [address] [id number] [address] [place] [address], [place] [address] Nov, [facility] [address] [id number] [address] [place] [address], [place] [address] Nov, [facility] [address] [id number] [address] [place] [address], [place] [address] Oct, [facility] [address] [id number] [address] [place] [address], [place] [address] Oct, [facility] [address] [id number] [address] [place] [address], [place] [address] Sep, [facility] [address] [id number] [address] [place] [address], [place] [address] Sep, [facility] [address] [id number] [address] [place] [address], [place] [address] Sep, [facility] [address] [id number] [address] [place] [address] Sep, [facility] [address] [id number] [address] [place] [address], [place] [address] Aug, [facility] [address] [id number] [address] [place] [address], [place] [address] Aug, [facility] [address] [id number] [address] [place] [address] Aug, [facility] [address] [id number] [address] [place] [address], [place] [address] Jul, [facility] [address] [id number] [address] [place] [address], [place] [address] Jul, [facility] [address] [id number] [address] [place] [address], [place] [address] Jun, [facility] [address] [id number] [address] [place] [address], [place] [address] Jun, [facility] [address] [id number] [address] [place] [address], [place] [address] Jun, [facility] [address] [id number] [address] [place] [address], [place] [address] May, [facility] [address] [id number] [address] [place] [address], [place] [address] May, [facility] [address] [id number] [address] [place] [address], [place] [address] May, [facility] [address] [id number] [address] [place] [address], [place] [address] Apr, [facility] [address] [id number] [address] [place] [address], [place] [address] Apr, [facility] [address] [id number] [address] [place] [address], [place] [address] March, [facility] [address] [id number] [address] [place] [address], [place] [address] Feb, [facility] [address] [id number] [address] [place] [address], [place] [address] Jan, [facility] [address] [id number] [address] [place] [address], [place] [address] Jan, [facility] [address] [id number] [address] [place] [address], [place] [id number] 07 Dec, 2012 [facility] [address] [id number] [address] [place] [address], [place] [address] Nov, [facility] [address] [id number] [address] [place] [address], [place] [address] Oct, [facility] [address] [id number] [address] [place] [address], [place] [address] Oct, [facility] [address] [id number] [address] [place] [address], [place] [address] Sep, [facility] [address] [id number] [address] [place] [address], [place] [address] Sep, [facility] [address] [id number] [address] [place] [address], [place] [address] Sep, [facility] [address] [id number] [address] [place] [address], [place] [address] Sep, [facility] [address] [id number] [address] [place] [address], [place] [address] Sep, [facility] [address] [id number] [address] [place] [address], [place] [address] Sep, [facility] [address] [id number] [address] [place] [address], [place] [address] Sep, [facility] [address] [id number] [address] [place] [address], [place] [address] Sep, [facility] [address] [id number] [address] [place] [address], [place] [address] Jul, [facility] [address] [id number] [address] [place] [address], [place] [address] Jun, [facility] [address] [id number] [address] [place] [address], [place] [address] Jun, [facility] [address] [id number] [address] [place] [address], [place] [address] 15 Jun, 2012 [facility] [address] [id number] [address] [place] [address], [place] [address] 14 Jun, 2012 [facility] [address] [id number] [address] [place] [address], [place] [address] 05 May, 2012 [facility] [address] [id number] [address] [place] [address], [place] [address] 25 Apr, 2012 [facility] [address] [id number] [address] [place] [address], [place] [address] Jan, [facility] [address] [id number] [address] [place] [address], [place] [address] 14 Dec, 2011 [facility] [address] [id number] [address] [place] [address], [place] [address] Dec, [facility] [address] [id number] [address] [place] [address], [place] [address] Nov, [facility] [address] [id number] [address] [place] [address], [place] [address] 19 Oct, 2011 [facility] [address] [id number] [address] [place] [address], [place] [address] 19 Oct, 2011 [facility] [address] [id number] [address] [place] [address], [place] [address] 18 Aug, 2011 [facility] [address] [id number] [address] [place] [address], [place] [address] 18 Aug, 2011 [facility] [address] [id number] [address] [place] [address], [place] [address] 18 Aug, 2011 [facility] [address] [id number] [address] [place] [address], [place] [address] 14 Aug, 2011 [facility] [address] [id number] [address] [place] [address], [place] [address] 11 Aug, 2011 [facility] [address] [id number] [address] [place] [address], [place] [address] 11 Aug, 2011 [facility] [address] [id number] [address] [place] [address], [place] [address] 19 May, 2011 [facility] [address] [id number] [address] [place] [address], [place] [address] 13 Apr, 2011 [facility] [address] [id number] [address] [place] [address], [place] [address] 18 Feb, 2011 [facility] [address] [id number] [address] [place] [address], [place] [address] 28 Oct, 2010 [facility] [address] [id number] [address] [place] [address], [place] [address] 21 Oct, 2010 [facility] [address] [id number] [address] [place] [address], [place] [address] 07 Oct, 2010 [facility] [address] [id number] [address] [place] [address], [place] [id number] 09 Sep, 2010 [facility] [address] [id number] [address] [place] [address], [place] [id number] 26 Aug, 2010 [facility] [address] [id number] [address] [place] [address], [place] [id number] 16 Jul, 2010 [facility] [address] [id number] [address] [place] [id number] 13 May, 2010 [facility] [address] [id number] [address] [place] [address], [place] [id number] Dec, [facility] [address] [id number] [address] [place] [phone] Nov, [facility] [address] [id number] [address] [place] [id number] 14 Oct, 2009 [facility] [address] [id number] [address] [place] [id number] 27 Sep, 2009 [facility] [address] [id number] [address] [place] [address], [place] [id number] 05 Sep, 2009 [facility] [address] [id number] [address] [place] [id number] 14 Jul, 2009 [facility] [address] [id number] [address] [place] [id number] 17 Jun, 2009 [facility] [address] [id number] [address] [place] [phone] May, IMMUNIZATIONS No Known Immunizations SOCIAL HISTORY Never Assessed REASON FOR VISIT PLAN OF CARE VITAL SIGNS Height 73 in 2013-10-05 Weight 232 lbs 2013-10-05 Temperature 96.9 degrees Fahrenheit 2013-10-05 Heart Rate 68 bpm 2013-10-05 Respiratory Rate 20 2013-10-05 Blood pressure systolic 110 mmHg 2013-10-05 Blood pressure diastolic 70 mmHg 2013-10-05 MEDICATIONS Unknown Medications RESULTS No Results PROCEDURES [...]
--- OUTSIDE RECORDS SUMMARY | 2020-06-11 20:49 | XMS REPORT ---
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 Name Role Phone NIRMAL VILLAVICENCIO Unavailable PROBLEMS Type Condition ICD9-CM Code XKQ22-PD Code Onset Dates Condition S tatus SNOMED Code Problem Raynauds disease I73.00 Active 195 421143 Problem Venous insufficiency I87.2 Active 72540315 Problem Other chronic pain G89.29 Active 8 1606253 Problem Hypokalemia E87.6 Active 01239827 Problem Prediabetes R73.03 Active 47699510 2 Problem Low back pain M54.5 Active 888776 009 Problem Congenital deafness H90.5 Active 48133469 Problem Dysthymia F34.1 Active 30393623 Problem Neuropathy G62.9 Active [id number] ALLERGIES No Information ENCOUNTERS Encounter Location Date Diagnosis [facility] [address] [id number] [address] [place] [address] Jan, Neuropathy G62.9 [facility] [address] [id number] [address] [place] [id number] 14 Dec, 2019 Neuropathy G62.9 [facility] [address] [id number] [address] [place] [address] Nov, Raynauds disease I73.00 ; Ve nous insufficiency I87.2 ; Prediabetes R73.03 and Neuropathy G62.9 [facility] [address] [facility] [id number] [address] [place] [address] Jun, Congenital deafness H90.5 [facility] [address] [facility] [id number] [address] [place] [address] Jun, Other chronic pain G89.29 [facility] [address] [id number] [address] [place] [address] Jun, Acute kidney injury N17.9 [facility] [address] [address] Jan, Abscess of left knee L02.416 [facility] [address] [address] Jan, Prediabetes R73.03 ; Raynaud s disease I73.00 and Venous insufficiency I87.2 [place] [address] [address] Oct, Neuropathy G62.9 ; Low back pain M54.5 and URI (upper respiratory infection) J06.9 [place] [address] [address] Jul, Raynauds disease I73.00 and Hypokalemia E87.6 [place] [address] [address] May, Medicare annual wellness vis it, initial Z00.00 ; Dysthymia F34.1 ; Raynauds disease I73.00 ; Venous insufficiency I87.2 ; Congenital deafness H90.5 and Neuropathy G62.9 [place] [address] [address] Apr, [place] [address] [address] Apr, Prediabetes R73.03 ; Raynaud s disease I73.00 ; Venous insufficiency I87.2 ; Neuropathy G62.9 and Dysthymia F34.1 [place] [address] [address] March, [place] [address] [address] Sep, Hyperglycemia R73.9 [place] [address] [address] Sep, Hyperglycemia R73.9 [facility] [id number] [place] [address] Sep, Raynauds disease I73.00 ; Ve nous insufficiency I87.2 and Encounter for immunization Z23 [facility] [address] [address] Jun, [facility] [address] [address] May, [facility] [address] [address] May, Other chronic pain G89.29 [place] [address] [address] May, Raynauds disease I73.00 ; Ve nous insufficiency I87.2 and Low back pain M54.5 [facility] [address] [address] Dec, Raynauds disease I73.00 ; Ve nous insufficiency I87.2 ; Low back pain M54.5 and Other chronic pain G89.29 [facility] [address] [address] Nov, [facility] [address] [address] Nov, Muscle spasm M62.838 [facility] [address] [id number] [address] [place] [address] Nov, [facility] [address] [address] Oct, Folliculitis L73.9 and Venou s insufficiency I87.2 [facility] [address] [id number] [address] [place] [address] Sep, Dermatitis L30.9 and Raynaud s disease I73.00 [facility] [address] [id number] [address] [place] [id number] Sep, Rash and nonspecific skin er uption R21 [facility] [address] [facility] [id number] [address] [place] [address] Aug, Skin infection L08.9 [facility] [address] [facility] [id number] [address] [place] [address] May, Infected smith L08.9 [facility] [address] [facility] [id number] [address] [place] [address] May, Skin infection L08.9 [facility] [address] [facility] [id number] [address] [place] [address] Dec, [facility] [address] [facility] [id number] [address] [place] [address] Nov, [facility] [address] [facility] [id number] [address] [place] [address] Nov, [facility] [address] [facility] [id number] [address] [place] [address] Nov, Raynauds disease I73.00 [facility] [address] [facility] [id number] [address] [place] [address] Nov, Raynauds disease I73.00 ; Le g cramps R25.2 ; Venous insufficiency I87.2 and Routine adult health maintenance Z00.00 [facility] [address] [facility] [id number] [address] [place] [address] Jul, Infected sebaceous cyst 706. 2 [facility] [address] [facility] [id number] [address] [place] [address] Jun, [facility] [address] [facility] [id number] [address] [place] [address] Jun, [facility] [address] [facility] [id number] [address] [place] [address] Jun, Venous insufficiency 459.81 and Raynauds disease 443.0 [facility] [place] [address] [id number] [address] [place] [address], [place] [address] Feb, [facility] [place] [address] [id number] [address] [place] [address] Feb, [facility] [address] [id number] [address] [place] [address] Jan, [facility] [address] [id number] [address] [place] [address] Jan, [facility] [place] [address] [id number] [address] [place] [address], [place] [address] Dec, [facility] [address] [id number] [address] [place] [address] Dec, [facility] [address] [id number] [address] [place] [address] Dec, [facility] [address] [id number] [address] [place] [address] Dec, [facility] [address] [id number] [address] [place] [address] Nov, [facility] [address] [id number] [address] [place] [id number] Nov, [facility] [address] [id number] [address] [place] [address] Oct, [facility] [address] [id number] [address] [place] [id number] Oct, [facility] [place] [address] [id number] [address] [place] [address] Aug, [facility] [address] [id number] [address] [place] [address] Aug, [facility] [place] [address] [id number] [address] [place] [address] Aug, [facility] [address] [id number] [facility] [place] [address] Jul, [facility] [address] [id number] [facility] [place] [address] Jul, [facility] [address] [id number] [facility] [place] [address] Jul, [facility] [address] [id number] [facility] [place] [address] Jul, [facility] [address] [id number] [facility] [place] [address] Jun, [facility] [address] [id number] [address] [place] [address], [place] [address] Jun, [facility] [address] [id number] [address] [place] [address], [place] [address] Jun, [facility] [address] [id number] [address] [place] [address], [place] [address] Jun, [facility] [address] [id number] [address] [place] [address], [place] [address] May, [facility] [address] [id number] [address] [place] [address], [place] [address] May, [facility] [address] [id number] [address] [place] [address], [place] [address] May, [facility] [address] [id number] [address] [place] [address], [place] [address] May, [facility] [address] [id number] [address] [place] [address], [place] [address] May, [facility] [address] [id number] [address] [place] [address], [place] [address] May, [facility] [address] [id number] [address] [place] [address], [place] [address] May, [facility] [address] [id number] [address] [place] [address], [place] [address] Apr, [facility] [address] [id number] [address] [place] [address], [place] [address] Apr, [facility] [address] [id number] [address] [place] [address], [place] [address] Apr, [facility] [address] [id number] [address] [place] [address], [place] [address] Apr, [facility] [address] [id number] [address] [place] [address], [place] [address] March, [facility] [address] [id number] [address] [place] [address], [place] [address] March, [facility] [address] [id number] [address] [place] [address], [place] [address] March, [facility] [address] [id number] [address] [place] [address], [place] [address] March, [facility] [address] [id number] [address] [place] [address], [place] [address] March, [facility] [address] [id number] [address] [place] [address], [place] [address] March, [facility] [address] [id number] [address] [place] [address], [place] [address] March, [facility] [address] [id number] [address] [place] [address], [place] [address] Feb, [facility] [address] [id number] [address] [place] [address], [place] [address] Feb, [facility] [address] [place] [id number] Feb, [facility] [address] [id number] [address] [place] [address], [place] [address] Feb, [facility] [address] [id number] [address] [place] [address], [place] [address] Feb, [facility] [address] [id number] [address] [place] [address], [place] [address] Feb, [facility] [address] [id number] [facility] [place] [address] Jan, [facility] [address] [id number] [facility] [place] [address] Jan, [facility] [address] [id number] [facility] [place] [address] Jan, [facility] [address] [id number] [facility] [place] [address] Jan, [facility] [address] [id number] [facility] [place] [address] Jan, [facility] [address] [id number] [address] [place] [address], [place] [address] Jan, [facility] [address] [id number] [address] [place] [address], [place] [address] Jan, [facility] [address] [id number] [address] [place] [address], [place] [address] Jan, [facility] [address] [id number] [address] [place] [address], [place] [address] Jan, [facility] [address] [id number] [address] [place] [address], [place] [address] Jan, [facility] [address] [id number] [address] [place] [address], [place] [address] Jan, [facility] [address] [id number] [address] [place] [address], [place] [address] Jan, [facility] [address] [id number] [address] [place] [address], [place] [address] Jan, [facility] [address] [id number] [address] [place] [address], [place] [address] Jan, [facility] [address] [id number] [address] [place] [address], [place] [address] Jan, [facility] [address] [id number] [address] [place] [address], [place] [address] Jan, [facility] [address] [id number] [address] [place] [address], [place] [address] Jan, [facility] [address] [id number] [address] [place] [address], [place] [address] Jan, [facility] [address] [id number] [address] [place] [address], [place] [address] Dec, [facility] [address] [id number] [address] [place] [address], [place] [address] Dec, [facility] [address] [id number] [address] [place] [address], [place] [address] Dec, [facility] [address] [id number] [address] [place] [address], [place] [address] Dec, [facility] [address] [id number] [address] [place] [address], [place] [address] 14 Dec, 2013 [facility] [address] [id number] [address] [place] [address], [place] [address] Dec, [facility] [address] [id number] [address] [place] [address], [place] [address] 07 Dec, 2013 [facility] [address] [id number] [address] [place] [address], [place] [address] Dec, [facility] [address] [id number] [address] [place] [address], [place] [address] Dec, [facility] [address] [id number] [address] [place] [address], [place] [address] Dec, [facility] [address] [id number] [address] [place] [address], [place] [address] Dec, [facility] [address] [id number] [address] [place] [address], [place] [address] Dec, [facility] [address] [id number] [address] [place] [address] Nov, [facility] [address] [id number] [address] [place] [address], [place] [address] Nov, [facility] [address] [id number] [address] [place] [address], [place] [address] Nov, [facility] [address] [id number] [address] [place] [address], [place] [address] Nov, [facility] [address] [id number] [address] [place] [address], [place] [address] Nov, [facility] [address] [id number] [address] [place] [address], [place] [address] Nov, [facility] [address] [id number] [address] [place] [address], [place] [address] Nov, [facility] [address] [id number] [address] [place] [address], [place] [address] Oct, [facility] [address] [id number] [address] [place] [address], [place] [address] Oct, [facility] [address] [id number] [address] [place] [address], [place] [address] Sep, [facility] [address] [id number] [address] [place] [address], [place] [address] Sep, [facility] [address] [id number] [address] [place] [address], [place] [address] Sep, [facility] [address] [id number] [address] [place] [address] Sep, [facility] [address] [id number] [address] [place] [address], [place] [address] Aug, [facility] [address] [id number] [address] [place] [address], [place] [address] Aug, [facility] [address] [id number] [address] [place] [address] Aug, [facility] [address] [id number] [address] [place] [address], [place] [address] Jul, [facility] [address] [id number] [address] [place] [address], [place] [address] Jul, [facility] [address] [id number] [address] [place] [address], [place] [address] Jun, [facility] [address] [id number] [address] [place] [address], [place] [address] Jun, [facility] [address] [id number] [address] [place] [address], [place] [address] Jun, [facility] [address] [id number] [address] [place] [address], [place] [address] May, [facility] [address] [id number] [address] [place] [address], [place] [address] May, [facility] [address] [id number] [address] [place] [address], [place] [address] May, [facility] [address] [id number] [address] [place] [address], [place] [address] Apr, [facility] [address] [id number] [address] [place] [address], [place] [address] Apr, [facility] [place] [address] [id number] [address] [place] [address], [place] [address] March, [facility] [address] [id number] [address] [place] [address], [place] [address] Feb, [facility] [address] [id number] [address] [place] [address], [place] [address] Jan, [facility] [address] [id number] [address] [place] [address], [place] [address] Jan, [facility] [address] [id number] [address] [place] [address], [place] [address] 07 Dec, 2012 [facility] [address] [id number] [address] [place] [address], [place] [address] Nov, [facility] [address] [id number] [address] [place] [address], [place] [address] Oct, [facility] [address] [id number] [address] [place] [address], [place] [address] Oct, [facility] [address] [id number] [address] [place] [address], [place] [address] Sep, [facility] [address] [id number] [address] [place] [address], [place] [address] Sep, [facility] [address] [id number] [address] [place] [address], [place] [address] Sep, [facility] [address] [id number] [address] [place] [address], [place] [address] Sep, [facility] [address] [id number] [address] [place] [address], [place] [address] Sep, [facility] [address] [id number] [address] [place] [address], [place] [address] Sep, [facility] [address] [id number] [address] [place] [address], [place] [address] Sep, [facility] [address] [id number] [address] [place] [address], [place] [address] Sep, [facility] [address] [id number] [address] [place] [address], [place] [address] Jul, [facility] [address] [id number] [address] [place] [address], [place] [address] Jun, [facility] [address] [id number] [address] [place] [address], [place] [address] Jun, [facility] [address] [id number] [address] [place] [address], [place] [address] 15 Jun, 2012 [facility] [address] [id number] [address] [place] [address], [place] [address] 14 Jun, 2012 [facility] [address] [id number] [address] [place] [address], [place] [address] 05 May, 2012 [facility] [address] [id number] [address] [place] [address], [place] [address] 25 Apr, 2012 [facility] [address] [id number] [address] [place] [address], [place] [address] Jan, [facility] [address] [id number] [address] [place] [address], [place] [address] 14 Dec, 2011 [facility] [address] [id number] [address] [place] [address], [place] [address] Dec, [facility] [address] [id number] [address] [place] [address], [place] [address] Nov, [facility] [address] [id number] [address] [place] [address], [place] [address] 19 Oct, 2011 [facility] [address] [id number] [address] [place] [address], [place] [address] 19 Oct, 2011 [facility] [address] [id number] [address] [place] [address], [place] [address] 18 Aug, 2011 [facility] [address] [id number] [address] [place] [address], [place] [address] 18 Aug, 2011 [facility] [address] [id number] [address] [place] [address], [place] [address] 18 Aug, 2011 [facility] [address] [id number] [address] [place] [address], [place] [address] 14 Aug, 2011 [facility] [address] [id number] [address] [place] [address], [place] [address] 11 Aug, 2011 [facility] [address] [id number] [address] [place] [address], [place] [address] 11 Aug, 2011 [facility] [address] [id number] [address] [place] [address], [place] [address] 19 May, 2011 [facility] [address] [id number] [address] [place] [address], [place] [address] 13 Apr, 2011 [facility] [address] [id number] [address] [place] [address], [place] [address] 18 Feb, 2011 [facility] [address] [id number] [address] [place] [address], [place] [address] 28 Oct, 2010 [facility] [address] [id number] [address] [place] [address], [place] [address] 21 Oct, 2010 [facility] [address] [id number] [address] [place] [address], [place] [address] 07 Oct, 2010 [facility] [address] [id number] [address] [place] [address], [place] [address] 09 Sep, 2010 [facility] [address] [id number] [address] [place] [address], [place] [address] 26 Aug, 2010 [facility] [address] [id number] [address] [place] [address], [place] [address] 16 Jul, 2010 [facility] [address] [id number] [address] [place] [address] 13 May, 2010 [facility] [address] [id number] [address] [place] [address], [place] [address] Dec, [facility] [address] [id number] [address] [place] [address] Nov, [facility] [address] [id number] [address] [place] [id number] 14 Oct, 2009 [facility] [address] [id number] [address] [place] [id number] 27 Sep, 2009 [facility] [address] [id number] [address] [place] [address], [place] [id number] 05 Sep, 2009 [facility] [address] [id number] [address] [place] [id number] 14 Jul, 2009 [facility] [address] [id number] [address] [place] [id number] 17 Jun, 2009 [facility] [address] [id number] [address] [place] [phone] May, IMMUNIZATIONS No Known Immunizations SOCIAL HISTORY Never Assessed REASON FOR VISIT PLAN OF CARE VITAL SIGNS Height 73 in 2013-08-18 Weight 230 lbs 2013-08-18 Temperature 97.6 degrees Fahrenheit 2013-08-18 Heart Rate 76 bpm 2013-08-18 Respiratory Rate 20 2013-08-18 Blood pressure systolic 100 mmHg 2013-08-18 Blood pressure diastolic 64 mmHg 2013-08-18 MEDICATIONS Unknown Medications RESULTS No Results PROCEDURES Procedure Date Ordered Result Body Site STREP A ASSAY W/OPTIC Aug 18, 2013 INSTRUCTIONS MEDICATIONS ADMINISTERED No Known Medications [...]
--- OUTSIDE RECORDS SUMMARY | 2020-06-11 20:50 | XMS REPORT ---
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 Name Role Phone PAULA ROBLEDO Unavailable PROBLEMS Type Condition ICD9-CM Code UBX70-AE Code Onset Dates Condition S tatus SNOMED Code Problem Raynauds disease I73.00 Active 195 272730 Problem Venous insufficiency I87.2 Active 18600189 Problem Other chronic pain G89.29 Active 8 5422917 Problem Hypokalemia E87.6 Active 02718057 Problem Prediabetes R73.03 Active 10250856 2 Problem Low back pain M54.5 Active 380173 009 Problem Congenital deafness H90.5 Active 94440646 Problem Dysthymia F34.1 Active 32227895 Problem Neuropathy G62.9 Active [id number] ALLERGIES No Information ENCOUNTERS Encounter Location Date Diagnosis [place] [address] [id number] [address] [place] [address] March, [facility] [address] [id number] [address] [place] [address] Jan, Neuropathy G62.9 [facility] [address] [id number] [address] [place] [id number] 14 Dec, 2019 Neuropathy G62.9 [facility] [address] [facility] [id number] [address] [place] [address] Nov, Raynauds disease I73.00 ; Ve nous insufficiency I87.2 ; Prediabetes R73.03 and Neuropathy G62.9 [facility] [address] [facility] [id number] [address] [place] [address] Jun, Congenital deafness H90.5 [facility] [address] [facility] [id number] [address] [place] [address] Jun, Other chronic pain G89.29 [facility] [address] [id number] [address] [place] [address] Jun, Acute kidney injury N17.9 [facility] [address] [facility] [id number] [address] [place] [address] Jan, Abscess of left knee L02.416 [facility] [address] [id number] [address] [place] [address] Jan, Prediabetes R73.03 ; Raynaud s disease I73.00 and Venous insufficiency I87.2 [place] [address] [address] Oct, Neuropathy G62.9 ; Low back pain M54.5 and URI (upper respiratory infection) J06.9 [place] [id number] [place] [address] Jul, Raynauds disease I73.00 and Hypokalemia E87.6 [facility] [id number] [address] [place] [address] May, Medicare annual wellness vis it, initial Z00.00 ; Dysthymia F34.1 ; Raynauds disease I73.00 ; Venous insufficiency I87.2 ; Congenital deafness H90.5 and Neuropathy G62.9 [facility] [id number] [place] [address] Apr, [place] [address] [id number] [address] [place] [address] Apr, Prediabetes R73.03 ; Raynaud s disease I73.00 ; Venous insufficiency I87.2 ; Neuropathy G62.9 and Dysthymia F34.1 [place] [id number] [address] [place] [address] March, [place] [address] [address] Sep, Hyperglycemia R73.9 [facility] [id number] [place] [address] Sep, Hyperglycemia R73.9 [facility] [id number] [place] [address] Sep, Raynauds disease I73.00 ; Ve nous insufficiency I87.2 and Encounter for immunization Z23 [facility] [address] [address] Jun, [facility] [address] [address] May, [place] [address] [address] May, Other chronic pain G89.29 [place] [address] [address] May, Raynauds disease I73.00 ; Ve nous insufficiency I87.2 and Low back pain M54.5 [place] [address] [address] Dec, Raynauds disease I73.00 ; Ve nous insufficiency I87.2 ; Low back pain M54.5 and Other chronic pain G89.29 [place] [address] [address] Nov, [facility] [address] [address] Nov, Muscle spasm M62.838 [facility] [id number] [place] [address] Nov, [facility] [address] [address] Oct, Folliculitis L73.9 and Venou s insufficiency I87.2 [facility] [id number] [place] [address] Sep, Dermatitis L30.9 and Raynaud s disease I73.00 [facility] [address] [facility] [id number] [address] [place] [address] Sep, Rash and nonspecific skin er uption R21 [facility] [address] [facility] [id number] [address] [place] [address] Aug, Skin infection L08.9 [facility] [address] [facility] [id number] [address] [place] [address] May, Infected smith L08.9 [facility] [address] [facility] [id number] [address] [place] [address] May, Skin infection L08.9 [facility] [address] [facility] [id number] [address] [place] [address] Dec, [facility] [address] [facility] [id number] [address] [place] [address] Nov, [facility] [address] [facility] [id number] [address] [place] [address] Nov, [facility] [address] [facility] [id number] [address] [place] [address] Nov, Raynauds disease I73.00 [facility] [address] [facility] [id number] [address] [place] [address] Nov, Raynauds disease I73.00 ; Le g cramps R25.2 ; Venous insufficiency I87.2 and Routine adult health maintenance Z00.00 [facility] [address] [facility] [id number] [address] [place] [address] Jul, Infected sebaceous cyst 706. 2 [facility] [address] [facility] [id number] [address] [place] [address] Jun, [facility] [address] [facility] [id number] [address] [place] [address] Jun, [facility] [address] [id number] [address] [place] [address] Jun, Venous insufficiency 459.81 and Raynauds disease 443.0 [facility] [address] [id number] [address] [place] [address] Feb, [facility] [address] [id number] [address] [place] [address] Feb, [facility] [address] [id number] [address] [place] [address] Jan, [facility] [address] [id number] [address] [place] [address], [place] [address] Jan, [facility] [address] [id number] [address] [place] [address] Dec, [facility] [address] [id number] [address] [place] [phone] Dec, [facility] [address] [id number] [address] [place] [address], [place] [address] Dec, [facility] [address] [id number] [address] [place] [phone] Dec, [facility] [address] [id number] [address] [place] [address] Nov, [facility] [address] [id number] [address] [place] [address] Nov, [facility] [address] [id number] [address] [place] [address] Oct, [facility] [address] [id number] [address] [place] [address] Oct, [facility] [address] [id number] [address] [place] [address] Aug, [facility] [address] [id number] [address] [place] [address] Aug, [facility] [address] [id number] [facility] [place] [address] Aug, [facility] [address] [id number] [facility] [place] [place] [address] Jul, [facility] [address] [id number] [facility] [place] [place] [address] Jul, [facility] [address] [id number] [facility] [place] [place] [address] Jul, [facility] [address] [id number] [facility] [place] [place] [address] Jul, [facility] [address] [id number] [address] [place] [address], [place] [address] Jun, [facility] [address] [id number] [address] [place] [address], [place] [address] Jun, [facility] [address] [id number] [address] [place] [address], [place] [address] Jun, [facility] [address] [id number] [address] [place] [address], [place] [address] Jun, [facility] [address] [id number] [address] [place] [address], [place] [address] May, [facility] [address] [id number] [address] [place] [address], [place] [address] May, [facility] [address] [id number] [address] [place] [address], [place] [address] May, [facility] [address] [id number] [address] [place] [address], [place] [address] May, [facility] [address] [id number] [address] [place] [address], [place] [address] May, [facility] [address] [id number] [address] [place] [address], [place] [address] May, [facility] [address] [id number] [address] [place] [address], [place] [address] May, [facility] [address] [id number] [address] [place] [address], [place] [address] Apr, [facility] [address] [id number] [address] [place] [address], [place] [address] Apr, [facility] [address] [id number] [address] [place] [address], [place] [address] Apr, [facility] [address] [id number] [address] [place] [address], [place] [address] Apr, [facility] [address] [id number] [address] [place] [address], [place] [address] March, [facility] [address] [id number] [address] [place] [address], [place] [address] March, [facility] [address] [id number] [address] [place] [address], [place] [address] March, [facility] [address] [id number] [address] [place] [address], [place] [address] March, [facility] [address] [id number] [address] [place] [address], [place] [address] March, [facility] [address] [id number] [address] [place] [address], [place] [address] March, [facility] [address] [id number] [address] [place] [address], [place] [address] March, [facility] [address] [id number] [address] [place] [address], [place] [address] Feb, [facility] [address] [id number] [address] [place] [address], [place] [address] Feb, [facility] [address] [place] [id number] Feb, [facility] [address] [id number] [address] [place] [address], [place] [address] Feb, [facility] [address] [id number] [address] [place] [address], [place] [address] Feb, [facility] [address] [id number] [facility] [place] [address] Feb, [facility] [address] [id number] [facility] [place] [place] [address] Jan, [facility] [address] [id number] [facility] [place] [place] [address] Jan, [facility] [address] [id number] [address] [place] [address], [place] [address] Jan, [facility] [address] [id number] [facility] [place] [place] [address] Jan, [facility] [address] [id number] [address] [place] [address], [place] [address] Jan, [facility] [address] [id number] [address] [place] [address], [place] [address] Jan, [facility] [address] [id number] [address] [place] [address], [place] [address] Jan, [facility] [address] [id number] [address] [place] [address], [place] [address] Jan, [facility] [address] [id number] [address] [place] [address], [place] [address] Jan, [facility] [address] [id number] [address] [place] [address], [place] [address] Jan, [facility] [address] [id number] [address] [place] [address], [place] [address] Jan, [facility] [address] [id number] [address] [place] [address], [place] [address] Jan, [facility] [address] [id number] [address] [place] [address], [place] [address] Jan, [facility] [address] [id number] [address] [place] [address], [place] [address] Jan, [facility] [address] [id number] [address] [place] [address], [place] [address] 10 Jan, 2014 [facility] [address] [id number] [address] [place] [address], [place] [address] 10 Jan, 2014 [facility] [address] [id number] [address] [place] [address], [place] [address] Jan, [facility] [address] [id number] [address] [place] [address], [place] [address] Jan, [facility] [address] [id number] [address] [place] [address], [place] [address] Dec, [facility] [address] [id number] [address] [place] [address], [place] [address] Dec, [facility] [address] [id number] [address] [place] [address], [place] [address] Dec, [facility] [address] [id number] [address] [place] [address], [place] [address] 17 Dec, 2013 [facility] [address] [id number] [address] [place] [address], [place] [address] 14 Dec, 2013 [facility] [address] [id number] [address] [place] [address], [place] [address] 07 Dec, 2013 [facility] [address] [id number] [address] [place] [address], [place] [address] 07 Dec, 2013 [facility] [address] [id number] [address] [place] [address], [place] [address] 06 Dec, 2013 [facility] [address] [id number] [address] [place] [address], [place] [address] 04 Dec, 2013 [facility] [address] [id number] [address] [place] [address], [place] [address] 04 Dec, 2013 [facility] [address] [id number] [address] [place] [address], [place] [address] 04 Dec, 2013 [facility] [address] [id number] [address] [place] [address] Dec, [facility] [address] [id number] [address] [place] [address], [place] [address] Nov, [facility] [address] [id number] [address] [place] [address] Nov, [facility] [address] [id number] [address] [place] [address], [place] [address] Nov, [facility] [address] [id number] [address] [place] [address], [place] [address] Nov, [facility] [address] [id number] [address] [place] [address], [place] [address] Nov, [facility] [address] [id number] [address] [place] [address], [place] [address] Nov, [facility] [address] [id number] [address] [place] [address] Nov, [facility] [address] [id number] [address] [place] [address], [place] [address] Oct, [facility] [address] [id number] [address] [place] [address] Oct, [facility] [address] [id number] [address] [place] [address] Sep, [facility] [address] [id number] [address] [place] [address], [place] [address] Sep, [facility] [address] [id number] [address] [place] [address] Sep, [facility] [address] [id number] [address] [place] [address] Sep, [facility] [address] [id number] [address] [place] [address] Aug, [facility] [address] [id number] [address] [place] [address] Aug, [facility] [address] [id number] [address] [place] [address], [place] [address] Aug, [facility] [address] [id number] [address] [place] [address], [place] [address] Jul, [facility] [address] [id number] [address] [place] [address], [place] [address] Jul, [facility] [address] [id number] [address] [place] [address], [place] [address] Jun, [facility] [address] [id number] [address] [place] [address], [place] [address] Jun, [facility] [address] [id number] [address] [place] [address], [place] [address] Jun, [facility] [address] [id number] [address] [place] [address], [place] [address] May, [facility] [address] [id number] [address] [place] [address], [place] [address] May, [facility] [address] [id number] [address] [place] [address], [place] [address] May, [facility] [address] [id number] [address] [place] [address], [place] [address] Apr, [facility] [address] [id number] [address] [place] [address], [place] [address] Apr, [facility] [address] [id number] [address] [place] [address], [place] [address] March, [facility] [address] [id number] [address] [place] [address], [place] [address] Feb, [facility] [address] [id number] [address] [place] [address], [place] [address] Jan, [facility] [address] [id number] [address] [place] [address], [place] [address] 2013 [facility] [address] [id number] [address] [place] [address] [address] Dec, [facility] [address] [id number] [address] [place] [address], [place] [address] Nov, [facility] [address] [id number] [address] [place] [address], [place] [address] Oct, [facility] [address] [id number] [address] [place] [address], [place] [address] Oct, [facility] [address] [id number] [address] [place] [address], [place] [address] Sep, [facility] [address] [id number] [address] [place] [address], [place] [address] Sep, [facility] [address] [id number] [address] [place] [address], [place] [address] Sep, [facility] [address] [id number] [address] [place] [address], [place] [address] Sep, [facility] [address] [id number] [address] [place] [address], [place] [address] Sep, [facility] [address] [id number] [address] [place] [address], [place] [address] Sep, [facility] [address] [id number] [address] [place] [address], [place] [address] Sep, [facility] [address] [id number] [address] [place] [address], [place] [address] Sep, [facility] [address] [id number] [address] [place] [address], [place] [address] Jul, [facility] [address] [id number] [address] [place] [address], [place] [address] Jun, [facility] [address] [id number] [address] [place] [address], [place] [address] Jun, [facility] [address] [id number] [address] [place] [address], [place] [address] Jun, [facility] [address] [id number] [address] [place] [address], [place] [address] Jun, [facility] [address] [id number] [address] [place] [address], [place] [address] May, [facility] [address] [id number] [address] [place] [address], [place] [address] Apr, [facility] [address] [id number] [address] [place] [address], [place] [address] Jan, [facility] [address] [id number] [address] [place] [address], [place] [address] Dec, [facility] [address] [id number] [address] [place] [address], [place] [address] Dec, [facility] [address] [id number] [address] [place] [address], [place] [address] Nov, [facility] [address] [id number] [address] [place] [address], [place] [address] Oct, [facility] [address] [id number] [address] [place] [address], [place] [address] Oct, [facility] [address] [id number] [address] [place] [address], [place] [address] 18 Aug, 2011 [facility] [address] [id number] [address] [place] [address], [place] [address] 18 Aug, 2011 [facility] [address] [id number] [address] [place] [address], [place] [address] 18 Aug, 2011 [facility] [address] [id number] [address] [place] [address], [place] [address] 14 Aug, 2011 [facility] [address] [id number] [address] [place] [address], [place] [address] 11 Aug, 2011 [facility] [address] [id number] [address] [place] [address], [place] [address] Aug, [facility] [address] [id number] [address] [place] [address], [place] [address] May, [facility] [address] [id number] [address] [place] [address], [place] [address] 13 Apr, 2011 [facility] [address] [id number] [address] [place] [address], [place] [address] 18 Feb, 2011 [facility] [address] [id number] [address] [place] [address], [place] [address] 28 Oct, 2010 [facility] [address] [id number] [address] [place] [address], [place] [address] 21 Oct, 2010 [facility] [address] [id number] [address] [place] [address], [place] [id number] 07 Oct, 2010 [facility] [address] [id number] [address] [place] [address], [place] [id number] 09 Sep, 2010 [facility] [address] [id number] [address] [place] [address], [place] [id number] 26 Aug, 2010 [facility] [address] [id number] [address] [place] [address], [place] [id number] 16 Jul, 2010 [facility] [address] [id number] [address] [place] [address], [place] [address] 13 May, 2010 [facility] [address] [id number] [address] [place] [id number] 19 Dec, 2009 [facility] [address] [id number] [address] [place] [phone] Nov, [facility] [address] [id number] [address] [place] [id number] 14 Oct, 2009 [facility] [address] [id number] [address] [place] [address], [place] [id number] 27 Sep, 2009 [facility] [address] [id number] [address] [place] [id number] 05 Sep, 2009 [facility] [address] [id number] [address] [place] [id number] 14 Jul, 2009 [facility] [address] [id number] [address] [place] [phone] Jun, [facility] [address] [facility] [id number] [address] [address] May, IMMUNIZATIONS No Known Immunizations SOCIAL HISTORY [...]
--- OUTSIDE RECORDS SUMMARY | 2020-06-11 20:50 | XMS REPORT ---
Author Author Jd ROBLEDO Organization [facility] Address [address] [place] [address] Care Team Providers Care Bull Riveter Name Role Phone PAULA ROBLEDO Unavailable PROBLEMS Type Condition ICD9-CM Code NVW76-CT Code Onset Dates Condition S tatus SNOMED Code Problem Raynauds disease I73.00 Active 195 879552 Problem Venous insufficiency I87.2 Active 92267322 Problem Other chronic pain G89.29 Active 8 8544998 Problem Hypokalemia E87.6 Active 64452939 Problem Prediabetes R73.03 Active 55211696 2 Problem Low back pain M54.5 Active 379299 009 Problem Congenital deafness H90.5 Active 38341537 Problem Dysthymia F34.1 Active 59219482 Problem Neuropathy G62.9 Active [id number] ALLERGIES No Information ENCOUNTERS Encounter Location Date Diagnosis [facility] [address] [facility] [id number] [address] [place] [address] Jan, Neuropathy G62.9 [facility] [address] [place] [id number] [address] [place] [address] 14 Dec, 2019 Neuropathy G62.9 [facility] [address] [place] [id number] [address] [place] [id number] Nov, Raynauds disease I73.00 ; Ve nous insufficiency I87.2 ; Prediabetes R73.03 and Neuropathy G62.9 [facility] [address] [facility] [id number] [address] [place] [address] Jun, Congenital deafness H90.5 [facility] [address] [facility] [id number] [address] [place] [address] Jun, Other chronic pain G89.29 [facility] [address] [place] [id number] [address] [place] [address] Jun, Acute kidney injury N17.9 [facility] [address] [address] Jan, Abscess of left knee L02.416 [facility] [address] [address] Jan, Prediabetes R73.03 ; Raynaud s disease I73.00 and Venous insufficiency I87.2 [place] [address] [address] Oct, Neuropathy G62.9 ; Low back pain M54.5 and URI (upper respiratory infection) J06.9 [place] [address] [address] Jul, Raynauds disease I73.00 and Hypokalemia E87.6 [place] [address] [address] May, Medicare annual wellness vis it, initial Z00.00 ; Dysthymia F34.1 ; Raynauds disease I73.00 ; Venous insufficiency I87.2 ; Congenital deafness H90.5 and Neuropathy G62.9 [place] [address] [address] Apr, [place] [address] [address] Apr, Prediabetes R73.03 ; Raynaud s disease I73.00 ; Venous insufficiency I87.2 ; Neuropathy G62.9 and Dysthymia F34.1 [place] [address] [address] March, [place] [address] [address] Sep, Hyperglycemia R73.9 [place] [address] [address] Sep, Hyperglycemia R73.9 [facility] [address] [place] [id number] [place] [address] Sep, Raynauds disease I73.00 ; Ve nous insufficiency I87.2 and Encounter for immunization Z23 [facility] [address] [address] Jun, [facility] [address] [address] May, [facility] [address] [address] May, Other chronic pain G89.29 [place] [address] [address] May, Raynauds disease I73.00 ; Ve nous insufficiency I87.2 and Low back pain M54.5 [facility] [address] [address] Dec, Raynauds disease I73.00 ; Ve nous insufficiency I87.2 ; Low back pain M54.5 and Other chronic pain G89.29 [facility] [address] [address] Nov, [facility] [address] [address] Nov, Muscle spasm M62.838 [facility] [address] [place] [id number] [address] [place] [address] Nov, [facility] [address] [address] Oct, Folliculitis L73.9 and Venou s insufficiency I87.2 [facility] [address] [place] [id number] [address] [place] [address] Sep, Dermatitis L30.9 and Raynaud s disease I73.00 [facility] [address] [id number] [address] [place] [address] Sep, Rash and nonspecific skin er uption R21 [facility] [address] [facility] [id number] [address] [place] [address] Aug, Skin infection L08.9 [facility] [address] [facility] [id number] [address] [place] [address] May, Infected smith L08.9 [facility] [address] [facility] [id number] [address] [place] [address] May, Skin infection L08.9 [facility] [address] [facility] [id number] [address] [place] [address] Dec, [facility] [address] [facility] [id number] [address] [place] [address] Nov, [facility] [address] [facility] [id number] [address] [place] [address] Nov, [facility] [address] [facility] [id number] [address] [place] [address] Nov, Raynauds disease I73.00 [facility] [address] [facility] [id number] [address] [place] [address] Nov, Raynauds disease I73.00 ; Le g cramps R25.2 ; Venous insufficiency I87.2 and Routine adult health maintenance Z00.00 [facility] [address] [facility] [id number] [address] [place] [address] Jul, Infected sebaceous cyst 706. 2 [facility] [address] [facility] [id number] [address] [place] [address] Jun, [facility] [address] [facility] [id number] [address] [place] [address] Jun, [facility] [address] [facility] [id number] [address] [place] [address] Jun, Venous insufficiency 459.81 and Raynauds disease 443.0 [facility] [address] [id number] [address] [place] [address], [place] [address] Feb, [facility] [address] [id number] [address] [place] [address] Feb, [facility] [address] [id number] [address] [place] [phone] Jan, [facility] [address] [id number] [address] [place] [address] Jan, [facility] [address] [id number] [address] [place] [address], [place] [address] Dec, [facility] [address] [id number] [address] [place] [address] Dec, [facility] [address] [id number] [address] [place] [address] Dec, [facility] [address] [id number] [address] [place] [address] Dec, [facility] [address] [id number] [address] [place] [address] Nov, [facility] [address] [id number] [address] [place] [address] Nov, [facility] [address] [id number] [address] [place] [phone] Oct, [facility] [address] [id number] [address] [place] [address] Oct, [facility] [address] [id number] [address] [place] [address] Aug, [facility] [address] [id number] [address] [place] [phone] Aug, [facility] [address] [id number] [address] [place] [phone] Aug, [facility] [address] [id number] [facility] [place] [address] Jul, [facility] [address] [id number] [facility] [place] [address] Jul, [facility] [address] [id number] [facility] [place] [address] Jul, [facility] [address] [id number] [facility] [place] [address] Jul, [facility] [address] [id number] [facility] [place] [address] Jun, [facility] [address] [id number] [address] [place] [address], [place] [address] Jun, [facility] [address] [id number] [address] [place] [address], [place] [address] Jun, [facility] [address] [id number] [address] [place] [address], [place] [address] Jun, [facility] [address] [id number] [address] [place] [address], [place] [address] May, [facility] [address] [id number] [address] [place] [address], [place] [address] May, [facility] [address] [id number] [address] [place] [address], [place] [address] May, [facility] [address] [id number] [address] [place] [address], [place] [address] May, [facility] [address] [id number] [address] [place] [address], [place] [address] May, [facility] [address] [id number] [address] [place] [address], [place] [address] May, [facility] [address] [id number] [address] [place] [address], [place] [address] May, [facility] [address] [id number] [address] [place] [address], [place] [address] Apr, [facility] [address] [id number] [address] [place] [address], [place] [address] Apr, [facility] [address] [id number] [address] [place] [address], [place] [address] Apr, [facility] [address] [id number] [address] [place] [address], [place] [address] Apr, [facility] [address] [id number] [address] [place] [address], [place] [address] March, [facility] [address] [id number] [address] [place] [address], [place] [address] March, [facility] [address] [id number] [address] [place] [address], [place] [address] March, [facility] [address] [id number] [address] [place] [address], [place] [address] March, [facility] [address] [id number] [address] [place] [address], [place] [address] March, [facility] [address] [id number] [address] [place] [address], [place] [address] March, [facility] [address] [id number] [address] [place] [address], [place] [address] March, [facility] [address] [id number] [address] [place] [address], [place] [address] Feb, [facility] [address] [id number] [address] [place] [address], [place] [address] Feb, [facility] [address] [place] [id number] Feb, [facility] [address] [id number] [address] [place] [address], [place] [address] Feb, [facility] [address] [id number] [address] [place] [address], [place] [address] Feb, [facility] [address] [id number] [address] [place] [address], [place] [address] Feb, [facility] [address] [id number] [facility] [place] [address] Jan, [facility] [address] [id number] [facility] [place] [address] Jan, [facility] [address] [id number] [facility] [place] [address] Jan, [facility] [address] [id number] [facility] [place] [address] Jan, [facility] [address] [id number] [facility] [place] [address] Jan, [facility] [address] [id number] [address] [place] [address], [place] [address] Jan, [facility] [address] [id number] [address] [place] [address], [place] [address] Jan, [facility] [address] [id number] [address] [place] [address], [place] [address] Jan, [facility] [address] [id number] [address] [place] [address], [place] [address] Jan, [facility] [address] [id number] [address] [place] [address], [place] [address] Jan, [facility] [address] [id number] [address] [place] [address], [place] [address] Jan, [facility] [address] [id number] [address] [place] [address], [place] [address] Jan, [facility] [address] [id number] [address] [place] [address], [place] [address] Jan, [facility] [address] [id number] [address] [place] [address], [place] [address] Jan, [facility] [address] [id number] [address] [place] [address], [place] [address] Jan, [facility] [address] [id number] [address] [place] [address], [place] [address] Jan, [facility] [address] [id number] [address] [place] [address], [place] [address] Jan, [facility] [address] [id number] [address] [place] [address], [place] [address] Jan, [facility] [address] [id number] [address] [place] [address], [place] [address] Dec, [facility] [address] [id number] [address] [place] [address], [place] [address] Dec, [facility] [address] [id number] [address] [place] [address], [place] [address] Dec, [facility] [address] [id number] [address] [place] [address], [place] [address] Dec, [facility] [address] [id number] [address] [place] [address], [place] [address] 14 Dec, 2013 [facility] [address] [id number] [address] [place] [address], [place] [address] Dec, [facility] [address] [id number] [address] [place] [address], [place] [address] 07 Dec, 2013 [facility] [address] [id number] [address] [place] [address], [place] [address] Dec, [facility] [address] [id number] [address] [place] [address], [place] [address] Dec, [facility] [address] [id number] [address] [place] [address], [place] [address] Dec, [facility] [address] [id number] [address] [place] [address], [place] [address] Dec, [facility] [address] [id number] [address] [place] [address], [place] [address] Dec, [facility] [address] [id number] [address] [place] [address] Nov, [facility] [address] [id number] [address] [place] [address], [place] [address] Nov, [facility] [address] [id number] [address] [place] [address], [place] [address] Nov, [facility] [address] [id number] [address] [place] [address], [place] [address] Nov, [facility] [address] [id number] [address] [place] [address], [place] [address] Nov, [facility] [address] [id number] [address] [place] [address], [place] [address] Nov, [facility] [address] [id number] [address] [place] [address], [place] [address] Nov, [facility] [address] [id number] [address] [place] [address], [place] [address] Oct, [facility] [address] [id number] [address] [place] [address], [place] [address] Oct, [facility] [address] [id number] [address] [place] [address], [place] [address] Sep, [facility] [address] [id number] [address] [place] [address], [place] [address] Sep, [facility] [address] [id number] [address] [place] [address], [place] [address] Sep, [facility] [address] [id number] [address] [place] [address] Sep, [facility] [address] [id number] [address] [place] [address], [place] [address] Aug, [facility] [address] [id number] [address] [place] [address], [place] [address] Aug, [facility] [address] [id number] [address] [place] [address] Aug, [facility] [address] [id number] [address] [place] [address], [place] [address] Jul, [facility] [address] [id number] [address] [place] [address], [place] [address] Jul, [facility] [address] [id number] [address] [place] [address], [place] [address] Jun, [facility] [address] [id number] [address] [place] [address], [place] [address] Jun, [facility] [address] [id number] [address] [place] [address], [place] [address] Jun, [facility] [address] [id number] [address] [place] [address], [place] [address] May, [facility] [address] [id number] [address] [place] [address], [place] [address] May, [facility] [address] [id number] [address] [place] [address], [place] [address] May, [facility] [address] [id number] [address] [place] [address], [place] [address] Apr, [facility] [address] [id number] [address] [place] [address], [place] [address] Apr, [facility] [address] [id number] [address] [place] [address], [place] [address] March, [facility] [address] [id number] [address] [place] [address], [place] [address] Feb, [facility] [address] [id number] [address] [place] [address], [place] [address] Jan, [facility] [address] [id number] [address] [place] [address], [place] [address] Jan, [facility] [address] [id number] [address] [place] [address], [place] [address] 07 Dec, 2012 [facility] [address] [id number] [address] [place] [address], [place] [address] Nov, [facility] [address] [id number] [address] [place] [address], [place] [address] Oct, [facility] [address] [id number] [address] [place] [address], [place] [address] Oct, [facility] [address] [id number] [address] [place] [address], [place] [address] Sep, [facility] [address] [id number] [address] [place] [address], [place] [address] Sep, [facility] [address] [id number] [address] [place] [address], [place] [address] Sep, [facility] [address] [id number] [address] [place] [address], [place] [address] Sep, [facility] [address] [id number] [address] [place] [address], [place] [address] Sep, [facility] [address] [id number] [address] [place] [address], [place] [address] Sep, [facility] [address] [id number] [address] [place] [address], [place] [address] Sep, [facility] [address] [id number] [address] [place] [address], [place] [address] Sep, [facility] [address] [id number] [address] [place] [address], [place] [address] Jul, [facility] [address] [id number] [address] [place] [address], [place] [address] Jun, [facility] [address] [id number] [address] [place] [address], [place] [address] Jun, [facility] [address] [id number] [address] [place] [address], [place] [address] 15 Jun, 2012 [facility] [address] [id number] [address] [place] [address], [place] [address] 14 Jun, 2012 [facility] [address] [id number] [address] [place] [address], [place] [address] 05 May, 2012 [facility] [address] [id number] [address] [place] [address], [place] [address] 25 Apr, 2012 [facility] [address] [id number] [address] [place] [address], [place] [address] Jan, [facility] [address] [id number] [address] [place] [address], [place] [address] 14 Dec, 2011 [facility] [address] [id number] [address] [place] [address], [place] [address] Dec, [facility] [address] [id number] [address] [place] [address], [place] [address] Nov, [facility] [address] [id number] [address] [place] [address], [place] [address] 19 Oct, 2011 [facility] [address] [id number] [address] [place] [address], [place] [address] 19 Oct, 2011 [facility] [address] [id number] [address] [place] [address], [place] [address] 18 Aug, 2011 [facility] [address] [id number] [address] [place] [address], [place] [address] 18 Aug, 2011 [facility] [address] [id number] [address] [place] [address], [place] [address] 18 Aug, 2011 [facility] [address] [id number] [address] [place] [address], [place] [address] 14 Aug, 2011 [facility] [address] [id number] [address] [place] [address], [place] [address] 11 Aug, 2011 [facility] [address] [id number] [address] [place] [address], [place] [address] 11 Aug, 2011 [facility] [address] [id number] [address] [place] [address], [place] [address] 19 May, 2011 [facility] [address] [id number] [address] [place] [address], [place] [address] 13 Apr, 2011 [facility] [address] [id number] [address] [place] [address], [place] [address] 18 Feb, 2011 [facility] [address] [id number] [address] [place] [address], [place] [address] 28 Oct, 2010 [facility] [address] [id number] [address] [place] [address], [place] [address] 21 Oct, 2010 [facility] [address] [id number] [address] [place] [address], [place] [address] 07 Oct, 2010 [facility] [address] [id number] [address] [place] [address], [place] [address] 09 Sep, 2010 [facility] [address] [id number] [address] [place] [address], [place] [address] 26 Aug, 2010 [facility] [address] [id number] [address] [place] [address], [place] [address] 16 Jul, 2010 [facility] [address] [id number] [address] [place] [id number] 13 May, 2010 [facility] [address] [id number] [address] [place] [address], [place] [address] Dec, [facility] [address] [id number] [address] [place] [id number] Nov, [facility] [address] [id number] [address] [place] [id number] 14 Oct, 2009 [facility] [address] [id number] [address] [place] [id number] 27 Sep, 2009 [facility] [address] [id number] [address] [place] [address], [place] [address] 05 Sep, 2009 [facility] [address] [id number] [address] [place] [id number] 14 Jul, 2009 [facility] [address] [id number] [address] [place] [id number] 17 Jun, 2009 [facility] [address] [id number] [address] [place] [id number] May, IMMUNIZATIONS No Known Immunizations SOCIAL HISTORY [...]
--- OUTSIDE RECORDS SUMMARY | 2020-06-11 20:50 | XMS REPORT ---
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 Assembler Name Role Phone PAULA ROBLEDO Unavailable PROBLEMS Type Condition ICD9-CM Code LRE66-IT Code Onset Dates Condition S tatus SNOMED Code Problem Raynauds disease I73.00 Active 195 113164 Problem Venous insufficiency I87.2 Active 63024103 Problem Other chronic pain G89.29 Active 8 2964292 Problem Hypokalemia E87.6 Active 99854342 Problem Prediabetes R73.03 Active 23983343 2 Problem Low back pain M54.5 Active 642163 009 Problem Congenital deafness H90.5 Active 36860799 Problem Dysthymia F34.1 Active 14599829 Problem Neuropathy G62.9 Active [id number] ALLERGIES No Information ENCOUNTERS Encounter Location Date Diagnosis [place] [address] [place] [id number] [place] [address] March, [facility] [address] [id number] [place] [address] Jan, Neuropathy G62.9 [facility] [address] [place] [id number] [place] [address] 14 Dec, 2019 Neuropathy G62.9 [facility] [address] [facility] [id number] [address] [place] [address] Nov, Raynauds disease I73.00 ; Ve nous insufficiency I87.2 ; Prediabetes R73.03 and Neuropathy G62.9 [facility] [address] [facility] [id number] [address] [place] [address] Jun, Congenital deafness H90.5 [facility] [address] [facility] [id number] [address] [place] [address] Jun, Other chronic pain G89.29 [facility] [address] [place] [id number] [place] [address] Jun, Acute kidney injury N17.9 [facility] [address] [facility] [id number] [address] [place] [address] Jan, Abscess of left knee L02.416 [facility] [address] [place] [id number] [place] [address] Jan, Prediabetes R73.03 ; Raynaud s disease I73.00 and Venous insufficiency I87.2 [place] [address] [address] Oct, Neuropathy G62.9 ; Low back pain M54.5 and URI (upper respiratory infection) J06.9 [place] [address] [place] [address] Jul, Raynauds disease I73.00 and Hypokalemia E87.6 [facility] [address] [place] [id number] [place] [address] May, Medicare annual wellness vis it, initial Z00.00 ; Dysthymia F34.1 ; Raynauds disease I73.00 ; Venous insufficiency I87.2 ; Congenital deafness H90.5 and Neuropathy G62.9 [facility] [address] [place] [address] Apr, [place] [address] [place] [id number] [place] [address] Apr, Prediabetes R73.03 ; Raynaud s disease I73.00 ; Venous insufficiency I87.2 ; Neuropathy G62.9 and Dysthymia F34.1 [place] [address] [place] [id number] [place] [address] March, [place] [address] [address] Sep, Hyperglycemia R73.9 [facility] [address] [place] [id number] [place] [address] Sep, Hyperglycemia R73.9 [facility] [address] [place] [id number] [place] [address] Sep, Raynauds disease I73.00 ; Ve nous insufficiency I87.2 and Encounter for immunization Z23 [facility] [address] [address] Jun, [facility] [address] [address] May, [place] [address] [address] May, Other chronic pain G89.29 [place] [address] [address] May, Raynauds disease I73.00 ; Ve nous insufficiency I87.2 and Low back pain M54.5 [place] [address] [address] Dec, Raynauds disease I73.00 ; Ve nous insufficiency I87.2 ; Low back pain M54.5 and Other chronic pain G89.29 [place] [address] [address] Nov, [facility] [address] [address] Nov, Muscle spasm M62.838 [facility] [address] [place] [id number] [place] [address] Nov, [facility] [address] [address] Oct, Folliculitis L73.9 and Venou s insufficiency I87.2 [facility] [address] [place] [id number] [place] [address] Sep, Dermatitis L30.9 and Raynaud s disease I73.00 [facility] [address] [facility] [id number] [address] [place] [address] Sep, Rash and nonspecific skin er uption R21 [facility] [address] [facility] [id number] [address] [place] [address] Aug, Skin infection L08.9 [facility] [address] [facility] [id number] [address] [place] [address] May, Infected smith L08.9 [facility] [address] [facility] [id number] [address] [place] [address] May, Skin infection L08.9 [facility] [address] [facility] [id number] [address] [place] [address] Dec, [facility] [address] [facility] [id number] [address] [place] [address] Nov, [facility] [address] [facility] [id number] [address] [place] [address] Nov, [facility] [address] [facility] [id number] [address] [place] [address] Nov, Raynauds disease I73.00 [facility] [address] [facility] [id number] [address] [place] [address] Nov, Raynauds disease I73.00 ; Le g cramps R25.2 ; Venous insufficiency I87.2 and Routine adult health maintenance Z00.00 [facility] [address] [facility] [id number] [address] [place] [address] Jul, Infected sebaceous cyst 706. 2 [facility] [address] [facility] [id number] [address] [place] [address] Jun, [facility] [address] [facility] [id number] [address] [place] [address] Jun, [facility] [address] [id number] [address] [place] [address] Jun, Venous insufficiency 459.81 and Raynauds disease 443.0 [facility] [address] [id number] [address] [place] [address] Feb, [facility] [address] [id number] [address] [place] [address] Feb, [facility] [address] [id number] [address] [place] [address] Jan, [facility] [address] [id number] [address] [place] [address], [place] [address] Jan, [facility] [address] [id number] [address] [place] [address] Dec, [facility] [address] [id number] [address] [place] [address] Dec, [facility] [address] [id number] [address] [place] [address], [place] [address] Dec, [facility] [address] [id number] [address] [place] [address] Dec, [facility] [address] [id number] [address] [place] [address] Nov, [facility] [address] [id number] [address] [place] [address] Nov, [facility] [address] [id number] [address] [place] [address] Oct, [facility] [address] [id number] [address] [place] [address] Oct, [facility] [address] [id number] [address] [place] [address] Aug, [facility] [address] [id number] [address] [place] [address] Aug, [facility] [address] [id number] [facility] [place] [address] Aug, [facility] [address] [id number] [facility] [place] [address] Jul, [facility] [address] [id number] [facility] [place] [address] Jul, [facility] [address] [id number] [facility] [place] [address] Jul, [facility] [address] [id number] [facility] [place] [address] Jul, [facility] [address] [id number] [address] [place] [address], [place] [address] Jun, [facility] [address] [id number] [address] [place] [address], [place] [address] Jun, [facility] [address] [id number] [address] [place] [address], [place] [address] Jun, [facility] [address] [id number] [address] [place] [address], [place] [address] Jun, [facility] [address] [id number] [address] [place] [address], [place] [address] May, [facility] [address] [id number] [address] [place] [address], [place] [address] May, [facility] [address] [id number] [address] [place] [address], [place] [address] May, [facility] [address] [id number] [address] [place] [address], [place] [address] May, [facility] [address] [id number] [address] [place] [address], [place] [address] May, [facility] [address] [id number] [address] [place] [address], [place] [address] May, [facility] [address] [id number] [address] [place] [address], [place] [address] May, [facility] [address] [id number] [address] [place] [address], [place] [address] Apr, [facility] [address] [id number] [address] [place] [address], [place] [address] Apr, [facility] [address] [id number] [address] [place] [address], [place] [address] Apr, [facility] [address] [id number] [address] [place] [address], [place] [address] Apr, [facility] [address] [id number] [address] [place] [address], [place] [address] March, [facility] [address] [id number] [address] [place] [address], [place] [address] March, [facility] [address] [id number] [address] [place] [address], [place] [address] March, [facility] [address] [id number] [address] [place] [address], [place] [address] March, [facility] [address] [id number] [address] [place] [address], [place] [address] March, [facility] [address] [id number] [address] [place] [address], [place] [address] March, [facility] [address] [id number] [address] [place] [address], [place] [address] March, [facility] [address] [id number] [address] [place] [address], [place] [address] Feb, [facility] [address] [id number] [address] [place] [address], [place] [address] Feb, [facility] [address] [place] [id number] Feb, [facility] [address] [id number] [address] [place] [address], [place] [address] Feb, [facility] [address] [id number] [address] [place] [address], [place] [address] Feb, [facility] [address] [id number] [facility] [place] [address] Feb, [facility] [address] [id number] [facility] [place] [address] Jan, [facility] [address] [id number] [facility] [place] [address] Jan, [facility] [address] [id number] [address] [place] [address], [place] [address] Jan, [facility] [address] [id number] [facility] [place] [address] Jan, [facility] [address] [id number] [address] [place] [address], [place] [address] Jan, [facility] [address] [id number] [address] [place] [address], [place] [address] Jan, [facility] [address] [id number] [address] [place] [address], [place] [address] Jan, [facility] [address] [id number] [address] [place] [address], [place] [address] Jan, [facility] [address] [id number] [address] [place] [address], [place] [address] Jan, [facility] [address] [id number] [address] [place] [address], [place] [address] Jan, [facility] [address] [id number] [address] [place] [address], [place] [address] Jan, [facility] [address] [id number] [address] [place] [address], [place] [address] Jan, [facility] [address] [id number] [address] [place] [address], [place] [address] Jan, [facility] [address] [id number] [address] [place] [address], [place] [address] Jan, [facility] [address] [id number] [address] [place] [address], [place] [address] 10 Jan, 2014 [facility] [address] [id number] [address] [place] [address], [place] [address] 10 Jan, 2014 [facility] [address] [id number] [address] [place] [address], [place] [address] Jan, [facility] [address] [id number] [address] [place] [address], [place] [address] Jan, [facility] [address] [id number] [address] [place] [address], [place] [address] Dec, [facility] [address] [id number] [address] [place] [address], [place] [address] Dec, [facility] [address] [id number] [address] [place] [address], [place] [address] Dec, [facility] [address] [id number] [address] [place] [address], [place] [address] 17 Dec, 2013 [facility] [address] [id number] [address] [place] [address], [place] [address] 14 Dec, 2013 [facility] [address] [id number] [address] [place] [address], [place] [address] 07 Dec, 2013 [facility] [address] [id number] [address] [place] [address], [place] [address] 07 Dec, 2013 [facility] [address] [id number] [address] [place] [address], [place] [address] 06 Dec, 2013 [facility] [address] [id number] [address] [place] [address], [place] [address] 04 Dec, 2013 [facility] [address] [id number] [address] [place] [address], [place] [address] 04 Dec, 2013 [facility] [address] [id number] [address] [place] [address], [place] [address] 04 Dec, 2013 [facility] [address] [id number] [address] [place] [address] Dec, [facility] [address] [id number] [address] [place] [address], [place] [address] Nov, [facility] [address] [id number] [address] [place] [address] Nov, [facility] [address] [id number] [address] [place] [address], [place] [address] Nov, [facility] [address] [id number] [address] [place] [address], [place] [address] Nov, [facility] [address] [id number] [address] [place] [address], [place] [address] Nov, [facility] [address] [id number] [address] [place] [address], [place] [address] Nov, [facility] [address] [id number] [address] [place] [address] Nov, [facility] [address] [id number] [address] [place] [address], [place] [address] Oct, [facility] [address] [id number] [address] [place] [address] Oct, [facility] [address] [id number] [address] [place] [address] Sep, [facility] [address] [id number] [address] [place] [address], [place] [address] Sep, [facility] [address] [id number] [address] [place] [address] Sep, [facility] [address] [id number] [address] [place] [address] Sep, [facility] [address] [id number] [address] [place] [address] Aug, [facility] [address] [id number] [address] [place] [address] Aug, [facility] [address] [id number] [address] [place] [address], [place] [address] Aug, [facility] [address] [id number] [address] [place] [address], [place] [address] Jul, [facility] [address] [id number] [address] [place] [address], [place] [address] Jul, [facility] [address] [id number] [address] [place] [address], [place] [address] Jun, [facility] [address] [id number] [address] [place] [address], [place] [address] Jun, [facility] [address] [id number] [address] [place] [address], [place] [address] Jun, [facility] [address] [id number] [address] [place] [address], [place] [address] May, [facility] [address] [id number] [address] [place] [address], [place] [address] May, [facility] [address] [id number] [address] [place] [address], [place] [address] May, [facility] [address] [id number] [address] [place] [address], [place] [address] Apr, [facility] [address] [id number] [address] [place] [address], [place] [address] Apr, [facility] [address] [id number] [address] [place] [address], [place] [address] March, [facility] [address] [id number] [address] [place] [address], [place] [address] Feb, [facility] [address] [id number] [address] [place] [address], [place] [address] Jan, [facility] [address] [id number] [address] [place] [address], [place] [address] 2013 [facility] [address] [id number] [address] [place], [place] [address] [address] Dec, [facility] [address] [id number] [address] [place] [address], [place] [address] Nov, [facility] [address] [id number] [address] [place] [address], [place] [address] Oct, [facility] [address] [id number] [address] [place] [address], [place] [address] Oct, [facility] [address] [id number] [address] [place] [address], [place] [address] Sep, [facility] [address] [id number] [address] [place] [address], [place] [address] Sep, [facility] [address] [id number] [address] [place] [address], [place] [address] Sep, [facility] [address] [id number] [address] [place] [address], [place] [address] Sep, [facility] [address] [id number] [address] [place] [address], [place] [address] Sep, [facility] [address] [id number] [address] [place] [address], [place] [address] Sep, [facility] [address] [id number] [address] [place] [address], [place] [address] Sep, [facility] [address] [id number] [address] [place] [address], [place] [address] Sep, [facility] [address] [id number] [address] [place] [address], [place] [address] Jul, [facility] [address] [id number] [address] [place] [address], [place] [address] Jun, [facility] [address] [id number] [address] [place] [address], [place] [address] Jun, [facility] [address] [id number] [address] [place] [address], [place] [address] Jun, [facility] [address] [id number] [address] [place] [address], [place] [address] Jun, [facility] [address] [id number] [address] [place] [address], [place] [address] May, [facility] [address] [id number] [address] [place] [address], [place] [address] Apr, [facility] [address] [id number] [address] [place] [address], [place] [address] Jan, [facility] [address] [id number] [address] [place] [address], [place] [address] Dec, [facility] [address] [id number] [address] [place] [address], [place] [address] Dec, [facility] [address] [id number] [address] [place] [address], [place] [address] Nov, [facility] [address] [id number] [address] [place] [address], [place] [address] Oct, [facility] [address] [id number] [address] [place] [address], [place] [address] Oct, [facility] [address] [id number] [address] [place] [address], [place] [address] 18 Aug, 2011 [facility] [address] [id number] [address] [place] [address], [place] [address] 18 Aug, 2011 [facility] [address] [id number] [address] [place] [address], [place] [address] 18 Aug, 2011 [facility] [address] [id number] [address] [place] [address], [place] [address] 14 Aug, 2011 [facility] [address] [id number] [address] [place] [address], [place] [address] 11 Aug, 2011 [facility] [address] [id number] [address] [place] [address], [place] [address] Aug, [facility] [address] [id number] [address] [place] [address], [place] [address] May, [facility] [address] [id number] [address] [place] [address], [place] [address] 13 Apr, 2011 [facility] [address] [id number] [address] [place] [address], [place] [address] 18 Feb, 2011 [facility] [address] [id number] [address] [place] [address], [place] [address] 28 Oct, 2010 [facility] [address] [id number] [address] [place] [address], [place] [address] 21 Oct, 2010 [facility] [address] [id number] [address] [place] [address], [place] [address] 07 Oct, 2010 [facility] [address] [id number] [address] [place] [address], [place] [address] 09 Sep, 2010 [facility] [address] [id number] [address] [place] [address], [place] [address] 26 Aug, 2010 [facility] [address] [id number] [address] [place] [address], [place] [address] 16 Jul, 2010 [facility] [address] [id number] [address] [place] [address], [place] [address] 13 May, 2010 [facility] [address] [id number] [address] [place] [address] 19 Dec, 2009 [facility] [address] [id number] [address] [place] [address] Nov, [facility] [address] [id number] [address] [place] [address] 14 Oct, 2009 [facility] [address] [id number] [address] [place] [address], [place] [address] 27 Sep, 2009 [facility] [address] [id number] [address] [place] [id number] 05 Sep, 2009 [facility] [address] [id number] [address] [place] [address] 14 Jul, 2009 [facility] [address] [id number] [address] [place] [address] Jun, [facility] [address] [facility] [id number] [address] [place] [address] May, IMMUNIZATIONS No Known Immunizations SOCIAL HISTORY Never Assessed REASON FOR VISIT PLAN OF CARE VITAL SIGNS Height 73 in 2013-06-24 Weight 227.8 lbs 2013-06-24 Temperature 97.1 degrees Fahrenheit 2013-06-24 Heart Rate 72 bpm 2013-06-24 Respiratory Rate 18 2013-06-24 Blood pressure systolic 108 mmHg 2013-06-24 Blood pressure diastolic 72 mmHg 2013-06-24 MEDICATIONS Unknown Medications RESULTS No Results PROCEDURES Procedure Date Ordered Result Body Site THER/PROPH/DIAG INJ, SC/IM Jun 24, 2013 PHENERGAN 12.5 MG Jun 24, 2013 INSTRUCTIONS MEDICATIONS ADMINISTERED No Known Medications [...]
--- OUTSIDE RECORDS SUMMARY | 2020-06-11 20:50 | XMS REPORT ---
Author Author Jd ROBLEDO Organization [facility] Address [address] [place] [address] Care Team Providers Care Flight/Transport Nurse Name Role Phone PAULA ROBLEDO Unavailable PROBLEMS Type Condition ICD9-CM Code [id number] Code Onset Dates Condition S tatus SNOMED Code Problem Raynauds disease I73.00 Active 195 530720 Problem Venous insufficiency I87.2 Active 70539378 Problem Other chronic pain G89.29 Active 8 2180636 Problem Hypokalemia E87.6 Active 71831072 Problem Prediabetes R73.03 Active 26698216 2 Problem Low back pain M54.5 Active 603307 009 Problem Congenital deafness H90.5 Active 56361110 Problem Dysthymia F34.1 Active 29717564 Problem Neuropathy G62.9 Active [id number] ALLERGIES No Information ENCOUNTERS Encounter Location Date Diagnosis [facility] [address] [facility] [id number] [address] [place] [address] Jan, Neuropathy G62.9 [facility] [address] [place] [id number] [address] [place] [address] 14 Dec, 2019 Neuropathy G62.9 [facility] [address] [id number] [address] [place] [address] Nov, Raynauds disease I73.00 ; Ve nous insufficiency I87.2 ; Prediabetes R73.03 and Neuropathy G62.9 [facility] [address] [facility] [id number] [address] [place] [address] Jun, Congenital deafness H90.5 [facility] [address] [facility] [id number] [address] [place] [address] Jun, Other chronic pain G89.29 [facility] [address] [place] [id number] [address] [place] [address] Jun, Acute kidney injury N17.9 [facility] [address] [address] Jan, Abscess of left knee L02.416 [facility] [address] [address] Jan, Prediabetes R73.03 ; Raynaud s disease I73.00 and Venous insufficiency I87.2 [place] [address] [address] Oct, Neuropathy G62.9 ; Low back pain M54.5 and URI (upper respiratory infection) J06.9 [place] [address] [address] Jul, Raynauds disease I73.00 and Hypokalemia E87.6 [place] [address] [address] May, Medicare annual wellness vis it, initial Z00.00 ; Dysthymia F34.1 ; Raynauds disease I73.00 ; Venous insufficiency I87.2 ; Congenital deafness H90.5 and Neuropathy G62.9 [place] [address] [address] Apr, [place] [address] [address] Apr, Prediabetes R73.03 ; Raynaud s disease I73.00 ; Venous insufficiency I87.2 ; Neuropathy G62.9 and Dysthymia F34.1 [place] [address] [address] March, [place] [address] [address] Sep, Hyperglycemia R73.9 [place] [address] [address] Sep, Hyperglycemia R73.9 [facility] [address] [place] [id number] [place] [address] Sep, Raynauds disease I73.00 ; Ve nous insufficiency I87.2 and Encounter for immunization Z23 [facility] [address] [address] Jun, [facility] [address] [address] May, [facility] [address] [address] May, Other chronic pain G89.29 [place] [address] [address] May, Raynauds disease I73.00 ; Ve nous insufficiency I87.2 and Low back pain M54.5 [facility] [address] [address] Dec, Raynauds disease I73.00 ; Ve nous insufficiency I87.2 ; Low back pain M54.5 and Other chronic pain G89.29 [facility] [address] [address] Nov, [facility] [address] [address] Nov, Muscle spasm M62.[address] [facility] [address] [place] [id number] [address] [place] [address] Nov, [facility] [address] [address] Oct, Folliculitis L73.9 and Venou s insufficiency I87.2 [facility] [address] [place] [id number] [address] [place] [address] Sep, Dermatitis L30.9 and Raynaud s disease I73.00 [facility] [address] [id number] [address] [place] [address] Sep, Rash and nonspecific skin er uption R21 [facility] [address] [facility] [id number] [address] [place] [address] Aug, Skin infection L08.9 [facility] [address] [facility] [id number] [address] [place] [address] May, Infected smith L08.9 [facility] [address] [facility] [id number] [address] [place] [address] May, Skin infection L08.9 [facility] [address] [facility] [id number] [address] [place] [address] Dec, [facility] [address] [facility] [id number] [address] [place] [address] Nov, [facility] [address] [facility] [id number] [address] [place] [address] Nov, [facility] [address] [facility] [id number] [address] [place] [address] Nov, Raynauds disease I73.00 [facility] [address] [facility] [id number] [address] [place] [address] Nov, Raynauds disease I73.00 ; Le g cramps R25.2 ; Venous insufficiency I87.2 and Routine adult health maintenance Z00.00 [facility] [address] [facility] [id number] [address] [place] [address] Jul, Infected sebaceous cyst 706. 2 [facility] [address] [facility] [id number] [address] [place] [address] Jun, [facility] [address] [facility] [id number] [address] [place] [address] Jun, [facility] [address] [facility] [id number] [address] [place] [address] Jun, Venous insufficiency 459.81 and Raynauds disease 443.0 [facility] [address] [id number] [address] [place] [address], [place] [address] Feb, [facility] [address] [id number] [address] [place] [address] Feb, [facility] [address] [id number] [address] [place] [address] Jan, [facility] [address] [id number] [address] [place] [address] Jan, [facility] [address] [id number] [address] [place] [address], [place] [address] Dec, [facility] [address] [id number] [address] [place] [address] Dec, [facility] [address] [id number] [address] [place] [address] Dec, [facility] [address] [id number] [address] [place] [address] Dec, [facility] [address] [id number] [address] [place] [address] Nov, [facility] [address] [id number] [address] [place] [address] Nov, [facility] [address] [id number] [address] [place] [address] Oct, [facility] [address] [id number] [address] [place] [address] Oct, [facility] [address] [id number] [address] [place] [address] Aug, [facility] [address] [id number] [address] [place] [address] Aug, [facility] [address] [id number] [address] [place] [address] Aug, [facility] [address] [id number] [facility] [place] [place] [address] Jul, [facility] [address] [id number] [facility] [place] [address] Jul, [facility] [address] [id number] [facility] [place] [place] [address] Jul, [facility] [address] [id number] [facility] [place] [place] [address] Jul, [facility] [address] [id number] [facility] [place] [place] [address] Jun, [facility] [address] [id number] [address] [place] [address], [place] [address] Jun, [facility] [address] [id number] [address] [place] [address], [place] [address] Jun, [facility] [address] [id number] [address] [place] [address], [place] [address] Jun, [facility] [address] [id number] [address] [place] [address], [place] [address] May, [facility] [address] [id number] [address] [place] [address], [place] [address] May, [facility] [address] [id number] [address] [place] [address], [place] [address] May, [facility] [address] [id number] [address] [place] [address], [place] [address] May, [facility] [address] [id number] [address] [place] [address], [place] [address] May, [facility] [address] [id number] [address] [place] [address], [place] [address] May, [facility] [address] [id number] [address] [place] [address], [place] [address] May, [facility] [address] [id number] [address] [place] [address], [place] [address] Apr, [facility] [address] [id number] [address] [place] [address], [place] [address] Apr, [facility] [address] [id number] [address] [place] [address], [place] [address] Apr, [facility] [address] [id number] [address] [place] [address], [place] [address] Apr, [facility] [address] [id number] [address] [place] [address], [place] [address] March, [facility] [address] [id number] [address] [place] [address], [place] [address] March, [facility] [address] [id number] [address] [place] [address], [place] [address] March, [facility] [address] [id number] [address] [place] [address], [place] [address] March, [facility] [address] [id number] [address] [place] [address], [place] [address] March, [facility] [address] [id number] [address] [place] [address], [place] [address] March, [facility] [address] [id number] [address] [place] [address], [place] [address] March, [facility] [address] [id number] [address] [place] [address], [place] [address] Feb, [facility] [address] [id number] [address] [place] [address], [place] [address] Feb, [facility] [address] [place] [id number] Feb, [facility] [address] [id number] [address] [place] [address], [place] [address] Feb, [facility] [address] [id number] [address] [place] [address], [place] [address] Feb, [facility] [address] [id number] [address] [place] [address], [place] [address] Feb, [facility] [address] [id number] [facility] [place] [place] [address] Jan, [facility] [address] [id number] [facility] [place] [address] Jan, [facility] [address] [id number] [facility] [place] [address] Jan, [facility] [address] [id number] [facility] [place] [address] Jan, [facility] [address] [id number] [facility] [place] [place] [address] Jan, [facility] [address] [id number] [address] [place] [address], [place] [address] Jan, [facility] [address] [id number] [address] [place] [address], [place] [address] Jan, [facility] [address] [id number] [address] [place] [address], [place] [address] Jan, [facility] [address] [id number] [address] [place] [address], [place] [address] Jan, [facility] [address] [id number] [address] [place] [address], [place] [address] Jan, [facility] [address] [id number] [address] [place] [address], [place] [address] Jan, [facility] [address] [id number] [address] [place] [address], [place] [address] Jan, [facility] [address] [id number] [address] [place] [address], [place] [address] Jan, [facility] [address] [id number] [address] [place] [address], [place] [address] Jan, [facility] [address] [id number] [address] [place] [address], [place] [address] Jan, [facility] [address] [id number] [address] [place] [address], [place] [address] Jan, [facility] [address] [id number] [address] [place] [address], [place] [address] Jan, [facility] [address] [id number] [address] [place] [address], [place] [address] Jan, [facility] [address] [id number] [address] [place] [address], [place] [address] Dec, [facility] [address] [id number] [address] [place] [address], [place] [address] Dec, [facility] [address] [id number] [address] [place] [address], [place] [address] Dec, [facility] [address] [id number] [address] [place] [address], [place] [address] Dec, [facility] [address] [id number] [address] [place] [address], [place] [address] 14 Dec, 2013 [facility] [address] [id number] [address] [place] [address], [place] [address] Dec, [facility] [address] [id number] [address] [place] [address], [place] [address] 07 Dec, 2013 [facility] [address] [id number] [address] [place] [address], [place] [address] Dec, [facility] [address] [id number] [address] [place] [address], [place] [address] Dec, [facility] [address] [id number] [address] [place] [address], [place] [address] Dec, [facility] [address] [id number] [address] [place] [address], [place] [address] Dec, [facility] [address] [id number] [address] [place] [address], [place] [address] Dec, [facility] [address] [id number] [address] [place] [address] Nov, [facility] [address] [id number] [address] [place] [address], [place] [address] Nov, [facility] [address] [id number] [address] [place] [address], [place] [address] Nov, [facility] [address] [id number] [address] [place] [address], [place] [address] Nov, [facility] [address] [id number] [address] [place] [address], [place] [address] Nov, [facility] [address] [id number] [address] [place] [address], [place] [address] Nov, [facility] [address] [id number] [address] [place] [address], [place] [address] Nov, [facility] [address] [id number] [address] [place] [address], [place] [address] Oct, [facility] [address] [id number] [address] [place] [address], [place] [address] Oct, [facility] [address] [id number] [address] [place] [address], [place] [address] Sep, [facility] [address] [id number] [address] [place] [address], [place] [address] Sep, [facility] [address] [id number] [address] [place] [address], [place] [address] Sep, [facility] [address] [id number] [address] [place] [address] Sep, [facility] [address] [id number] [address] [place] [address], [place] [address] Aug, [facility] [address] [id number] [address] [place] [address], [place] [address] Aug, [facility] [address] [id number] [address] [place] [address] Aug, [facility] [address] [id number] [address] [place] [address], [place] [address] Jul, [facility] [address] [id number] [address] [place] [address], [place] [address] Jul, [facility] [address] [id number] [address] [place] [address], [place] [address] Jun, [facility] [address] [id number] [address] [place] [address], [place] [address] Jun, [facility] [address] [id number] [address] [place] [address], [place] [address] Jun, [facility] [address] [id number] [address] [place] [address], [place] [address] May, [facility] [address] [id number] [address] [place] [address], [place] [address] May, [facility] [address] [id number] [address] [place] [address], [place] [address] May, [facility] [address] [id number] [address] [place] [address], [place] [address] Apr, [facility] [address] [id number] [address] [place] [address], [place] [address] Apr, [facility] [address] [id number] [address] [place] [address], [place] [address] March, [facility] [address] [id number] [address] [place] [address], [place] [address] Feb, [facility] [address] [id number] [address] [place] [address], [place] [address] Jan, [facility] [address] [id number] [address] [place] [address], [place] [address] Jan, [facility] [address] [id number] [address] [place] [address], [place] [address] 07 Dec, 2012 [facility] [address] [id number] [address] [place] [address], [place] [address] Nov, [facility] [address] [id number] [address] [place] [address], [place] [address] Oct, [facility] [address] [id number] [address] [place] [address], [place] [address] Oct, [facility] [address] [id number] [address] [place] [address], [place] [address] Sep, [facility] [address] [id number] [address] [place] [address], [place] [address] Sep, [facility] [address] [id number] [address] [place] [address], [place] [address] Sep, [facility] [address] [id number] [address] [place] [address], [place] [address] Sep, [facility] [address] [id number] [address] [place] [address], [place] [address] Sep, [facility] [address] [id number] [address] [place] [address], [place] [address] Sep, [facility] [address] [id number] [address] [place] [address], [place] [address] Sep, [facility] [address] [id number] [address] [place] [address], [place] [address] Sep, [facility] [address] [id number] [address] [place] [address], [place] [address] Jul, [facility] [address] [id number] [address] [place] [address], [place] [address] Jun, [facility] [address] [id number] [address] [place] [address], [place] [address] Jun, [facility] [address] [id number] [address] [place] [address], [place] [address] 15 Jun, 2012 [facility] [address] [id number] [address] [place] [address], [place] [address] 14 Jun, 2012 [facility] [address] [id number] [address] [place] [address], [place] [address] 05 May, 2012 [facility] [address] [id number] [address] [place] [address], [place] [address] 25 Apr, 2012 [facility] [address] [id number] [address] [place] [address], [place] [address] Jan, [facility] [address] [id number] [address] [place] [address], [place] [address] 14 Dec, 2011 [facility] [address] [id number] [address] [place] [address], [place] [address] Dec, [facility] [address] [id number] [address] [place] [address], [place] [address] Nov, [facility] [address] [id number] [address] [place] [address], [place] [address] 19 Oct, 2011 [facility] [address] [id number] [address] [place] [address], [place] [address] 19 Oct, 2011 [facility] [address] [id number] [address] [place] [address], [place] [address] 18 Aug, 2011 [facility] [address] [id number] [address] [place] [address], [place] [address] 18 Aug, 2011 [facility] [address] [id number] [address] [place] [address], [place] [address] 18 Aug, 2011 [facility] [address] [id number] [address] [place] [address], [place] [address] 14 Aug, 2011 [facility] [address] [id number] [address] [place] [address], [place] [address] 11 Aug, 2011 [facility] [address] [id number] [address] [place] [address], [place] [address] 11 Aug, 2011 [facility] [address] [id number] [address] [place] [address], [place] [address] 19 May, 2011 [facility] [address] [id number] [address] [place] [address], [place] [address] 13 Apr, 2011 [facility] [address] [id number] [address] [place] [address], [place] [address] 18 Feb, 2011 [facility] [address] [id number] [address] [place] [address], [place] [address] 28 Oct, 2010 [facility] [address] [id number] [address] [place] [address], [place] [address] 21 Oct, 2010 [facility] [address] [id number] [address] [place] [address], [place] [address] 07 Oct, 2010 [facility] [address] [id number] [address] [place] [address], [place] [address] 09 Sep, 2010 [facility] [address] [id number] [address] [place] [address], [place] [address] 26 Aug, 2010 [facility] [address] [id number] [address] [place] [address], [place] [address] 16 Jul, 2010 [facility] [address] [id number] [address] [place] [address] 13 May, 2010 [facility] [address] [id number] [address] [place] [address], [place] [address] Dec, [facility] [address] [id number] [address] [place] [address] Nov, [facility] [address] [id number] [address] [place] [address] 14 Oct, 2009 [facility] [address] [id number] [address] [place] [address] 27 Sep, 2009 [facility] [address] [id number] [address] [place] [address], [place] [address] 05 Sep, 2009 [facility] [address] [id number] [address] [place] [address] [id number] 14 Jul, 2009 [facility] [address] [id number] [address] [place] [id number] 17 Jun, 2009 [facility] [address] [id number] [address] [place] [id number] May, IMMUNIZATIONS No Known Immunizations SOCIAL HISTORY Never Assessed REASON FOR VISIT PLAN OF CARE VITAL SIGNS MEDICATIONS Unknown Medications RESULTS No Results PROCEDURES Procedure Date Ordered Result Body Site BASIC METABOLIC PANEL May 26, 2013 VENYANET, ROUTINE* May 26, 2013 INSTRUCTIONS MEDICATIONS ADMINISTERED No Known Medications [...]
--- OUTSIDE RECORDS SUMMARY | 2020-06-11 20:50 | XMS REPORT ---
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 Name Role Phone PAULA ROBLEDO Unavailable PROBLEMS Type Condition ICD9-CM Code WOS24-AE Code Onset Dates Condition S tatus SNOMED Code Problem Raynauds disease I73.00 Active 195 506485 Problem Venous insufficiency I87.2 Active 41459315 Problem Other chronic pain G89.29 Active 8 2823079 Problem Hypokalemia E87.6 Active 74562973 Problem Prediabetes R73.03 Active 18739564 2 Problem Low back pain M54.5 Active 340486 009 Problem Congenital deafness H90.5 Active 65002651 Problem Dysthymia F34.1 Active 95082877 Problem Neuropathy G62.9 Active [id number] ALLERGIES No Information ENCOUNTERS Encounter Location Date Diagnosis [place] [address] [id number] [address] [place] [address] March, [facility] [address] [id number] [address] [place] [address] Jan, Neuropathy G62.9 [facility] [address] [id number] [address] [place] [address] 14 Dec, 2019 Neuropathy G62.9 [facility] [address] [facility] [id number] [address] [place] [address] Nov, Raynauds disease I73.00 ; Ve nous insufficiency I87.2 ; Prediabetes R73.03 and Neuropathy G62.9 [facility] [address] [facility] [id number] [address] [place] [address] Jun, Congenital deafness H90.5 [facility] [address] [facility] [id number] [address] [place] [address] Jun, Other chronic pain G89.29 [facility] [address] [id number] [address] [place] [address] Jun, Acute kidney injury N17.9 [facility] [address] [facility] [id number] [address] [place] [address] Jan, Abscess of left knee L02.416 [facility] [address] [id number] [address] [place] [address] Jan, Prediabetes R73.03 ; Raynaud s disease I73.00 and Venous insufficiency I87.2 [place] [address] [address] Oct, Neuropathy G62.9 ; Low back pain M54.5 and URI (upper respiratory infection) J06.9 [place] [id number] [place] [address] Jul, Raynauds disease I73.00 and Hypokalemia E87.6 [facility] [id number] [address] [place] [address] May, Medicare annual wellness vis it, initial Z00.00 ; Dysthymia F34.1 ; Raynauds disease I73.00 ; Venous insufficiency I87.2 ; Congenital deafness H90.5 and Neuropathy G62.9 [facility] [id number] [place] [address] Apr, [place] [address] [id number] [address] [place] [address] Apr, Prediabetes R73.03 ; Raynaud s disease I73.00 ; Venous insufficiency I87.2 ; Neuropathy G62.9 and Dysthymia F34.1 [place] [address] [id number] [address] [place] [address] March, [place] [address] [address] Sep, Hyperglycemia R73.9 [facility] [id number] [place] [address] Sep, Hyperglycemia R73.9 [facility] [id number] [place] [address] Sep, Raynauds disease I73.00 ; Ve nous insufficiency I87.2 and Encounter for immunization Z23 [facility] [address] [address] Jun, [facility] [address] [address] May, [place] [address] [address] May, Other chronic pain G89.29 [place] [address] [address] May, Raynauds disease I73.00 ; Ve nous insufficiency I87.2 and Low back pain M54.5 [place] [address] [address] Dec, Raynauds disease I73.00 ; Ve nous insufficiency I87.2 ; Low back pain M54.5 and Other chronic pain G89.29 [place] [address] [address] Nov, [facility] [address] [address] Nov, Muscle spasm M62.838 [facility] [id number] [place] [address] Nov, [facility] [address] [address] Oct, Folliculitis L73.9 and Venou s insufficiency I87.2 [facility] [id number] [place] [address] Sep, Dermatitis L30.9 and Raynaud s disease I73.00 [facility] [address] [facility] [id number] [address] [place] [address] Sep, Rash and nonspecific skin er uption R21 [facility] [address] [facility] [id number] [address] [place] [address] Aug, Skin infection L08.9 [facility] [address] [facility] [id number] [address] [place] [address] May, Infected smith L08.9 [facility] [address] [facility] [id number] [address] [place] [address] May, Skin infection L08.9 [facility] [address] [facility] [id number] [address] [place] [address] Dec, [facility] [address] [facility] [id number] [address] [place] [address] Nov, [facility] [address] [facility] [id number] [address] [place] [address] Nov, [facility] [address] [facility] [id number] [address] [place] [address] Nov, Raynauds disease I73.00 [facility] [address] [facility] [id number] [address] [place] [address] Nov, Raynauds disease I73.00 ; Le g cramps R25.2 ; Venous insufficiency I87.2 and Routine adult health maintenance Z00.00 [facility] [address] [facility] [id number] [address] [place] [address] Jul, Infected sebaceous cyst 706. 2 [facility] [address] [facility] [id number] [address] [place] [address] Jun, [facility] [address] [facility] [id number] [address] [place] [address] Jun, [facility] [address] [id number] [address] [place] [address] Jun, Venous insufficiency 459.81 and Raynauds disease 443.0 [facility] [address] [id number] [address] [place] [address] Feb, [facility] [address] [id number] [address] [place] [address] Feb, [facility] [address] [id number] [address] [place] [address] Jan, [facility] [address] [id number] [address] [place] [address], [place] [address] Jan, [facility] [address] [id number] [address] [place] [address] Dec, [facility] [address] [id number] [address] [place] [address] Dec, [facility] [address] [id number] [address] [place] [address], [place] [address] Dec, [facility] [address] [id number] [address] [place] [address] Dec, [facility] [address] [id number] [address] [place] [address] Nov, [facility] [address] [id number] [address] [place] [address] Nov, [facility] [address] [id number] [address] [place] [address] Oct, [facility] [address] [id number] [address] [place] [address] Oct, [facility] [address] [id number] [address] [place] [address] Aug, [facility] [address] [id number] [address] [place] [address] Aug, [facility] [address] [id number] [facility] [place] [address] Aug, [facility] [address] [id number] [facility] [place] [address] Jul, [facility] [address] [id number] [facility] [place] [address] Jul, [facility] [address] [id number] [facility] [place] [address] Jul, [facility] [address] [id number] [facility] [place] [address] Jul, [facility] [address] [id number] [address] [place] [address], [place] [address] Jun, [facility] [address] [id number] [address] [place] [address], [place] [address] Jun, [facility] [address] [id number] [address] [place] [address], [place] [address] Jun, [facility] [address] [id number] [address] [place] [address], [place] [address] Jun, [facility] [address] [id number] [address] [place] [address], [place] [address] May, [facility] [address] [id number] [address] [place] [address], [place] [address] May, [facility] [address] [id number] [address] [place] [address], [place] [address] May, [facility] [address] [id number] [address] [place] [address], [place] [address] May, [facility] [address] [id number] [address] [place] [address], [place] [address] May, [facility] [address] [id number] [address] [place] [address], [place] [address] May, [facility] [address] [id number] [address] [place] [address], [place] [address] May, [facility] [address] [id number] [address] [place] [address], [place] [address] Apr, [facility] [address] [id number] [address] [place] [address], [place] [address] Apr, [facility] [address] [id number] [address] [place] [address], [place] [address] Apr, [facility] [address] [id number] [address] [place] [address], [place] [address] Apr, [facility] [address] [id number] [address] [place] [address], [place] [address] March, [facility] [address] [id number] [address] [place] [address], [place] [address] March, [facility] [address] [id number] [address] [place] [address], [place] [address] March, [facility] [address] [id number] [address] [place] [address], [place] [address] March, [facility] [address] [id number] [address] [place] [address], [place] [address] March, [facility] [address] [id number] [address] [place] [address], [place] [address] March, [facility] [address] [id number] [address] [place] [address], [place] [address] March, [facility] [address] [id number] [address] [place] [address], [place] [address] Feb, [facility] [address] [id number] [address] [place] [address], [place] [address] Feb, [facility] [address] [place] [id number] Feb, [facility] [address] [id number] [address] [place] [address], [place] [address] Feb, [facility] [address] [id number] [address] [place] [address], [place] [address] Feb, [facility] [address] [id number] [facility] [place] [address] Feb, [facility] [address] [id number] [facility] [place] [address] Jan, [facility] [address] [id number] [facility] [place] [address] Jan, [facility] [address] [id number] [address] [place] [address], [place] [address] Jan, [facility] [address] [id number] [facility] [place] [address] Jan, [facility] [address] [id number] [address] [place] [address], [place] [address] Jan, [facility] [address] [id number] [address] [place] [address], [place] [address] Jan, [facility] [address] [id number] [address] [place] [address], [place] [address] Jan, [facility] [address] [id number] [address] [place] [address], [place] [address] Jan, [facility] [address] [id number] [address] [place] [address], [place] [address] Jan, [facility] [address] [id number] [address] [place] [address], [place] [address] Jan, [facility] [address] [id number] [address] [place] [address], [place] [address] Jan, [facility] [address] [id number] [address] [place] [address], [place] [address] Jan, [facility] [address] [id number] [address] [place] [address], [place] [address] Jan, [facility] [address] [id number] [address] [place] [address], [place] [address] Jan, [facility] [address] [id number] [address] [place] [address], [place] [address] 10 Jan, 2014 [facility] [address] [id number] [address] [place] [address], [place] [address] 10 Jan, 2014 [facility] [address] [id number] [address] [place] [address], [place] [address] Jan, [facility] [address] [id number] [address] [place] [address], [place] [address] Jan, [facility] [address] [id number] [address] [place] [address], [place] [address] Dec, [facility] [address] [id number] [address] [place] [address], [place] [address] Dec, [facility] [address] [id number] [address] [place] [address], [place] [address] Dec, [facility] [address] [id number] [address] [place] [address], [place] [address] 17 Dec, 2013 [facility] [address] [id number] [address] [place] [address], [place] [address] 14 Dec, 2013 [facility] [address] [id number] [address] [place] [address], [place] [address] 07 Dec, 2013 [facility] [address] [id number] [address] [place] [address], [place] [address] 07 Dec, 2013 [facility] [address] [id number] [address] [place] [address], [place] [address] 06 Dec, 2013 [facility] [address] [id number] [address] [place] [address], [place] [address] 04 Dec, 2013 [facility] [address] [id number] [address] [place] [address], [place] [address] 04 Dec, 2013 [facility] [address] [id number] [address] [place] [address], [place] [address] 04 Dec, 2013 [facility] [address] [id number] [address] [place] [address] Dec, [facility] [address] [id number] [address] [place] [address], [place] [address] Nov, [facility] [address] [id number] [address] [place] [address] Nov, [facility] [address] [id number] [address] [place] [address], [place] [address] Nov, [facility] [address] [id number] [address] [place] [address], [place] [address] Nov, [facility] [address] [id number] [address] [place] [address], [place] [address] Nov, [facility] [address] [id number] [address] [place] [address], [place] [address] Nov, [facility] [address] [id number] [address] [place] [address] Nov, [facility] [address] [id number] [address] [place] [address], [place] [address] Oct, [facility] [address] [id number] [address] [place] [address] Oct, [facility] [address] [id number] [address] [place] [address] Sep, [facility] [address] [id number] [address] [place] [address], [place] [address] Sep, [facility] [address] [id number] [address] [place] [address] Sep, [facility] [address] [id number] [address] [place] [address] Sep, [facility] [address] [id number] [address] [place] [address] Aug, [facility] [address] [id number] [address] [place] [address] Aug, [facility] [address] [id number] [address] [place] [address], [place] [address] Aug, [facility] [address] [id number] [address] [place] [address], [place] [address] Jul, [facility] [address] [id number] [address] [place] [address], [place] [address] Jul, [facility] [address] [id number] [address] [place] [address], [place] [address] Jun, [facility] [address] [id number] [address] [place] [address], [place] [address] Jun, [facility] [address] [id number] [address] [place] [address], [place] [address] Jun, [facility] [address] [id number] [address] [place] [address], [place] [address] May, [facility] [address] [id number] [address] [place] [address], [place] [address] May, [facility] [address] [id number] [address] [place] [address], [place] [address] May, [facility] [address] [id number] [address] [place] [address], [place] [address] Apr, [facility] [address] [id number] [address] [place] [address], [place] [address] Apr, [facility] [address] [id number] [address] [place] [address], [place] [address] March, [facility] [address] [id number] [address] [place] [address], [place] [address] Feb, [facility] [address] [id number] [address] [place] [address], [place] [address] Jan, [facility] [address] [id number] [address] [place] [address], [place] [address] 2013 [facility] [address] [id number] [address] [place] [address] [address] Dec, [facility] [address] [id number] [address] [place] [address], [place] [address] Nov, [facility] [address] [id number] [address] [place] [address], [place] [address] Oct, [facility] [address] [id number] [address] [place] [address], [place] [address] Oct, [facility] [address] [id number] [address] [place] [address], [place] [address] Sep, [facility] [address] [id number] [address] [place] [address], [place] [address] Sep, [facility] [address] [id number] [address] [place] [address], [place] [address] Sep, [facility] [address] [id number] [address] [place] [address], [place] [address] Sep, [facility] [address] [id number] [address] [place] [address], [place] [address] Sep, [facility] [address] [id number] [address] [place] [address], [place] [address] Sep, [facility] [address] [id number] [address] [place] [address], [place] [address] Sep, [facility] [address] [id number] [address] [place] [address], [place] [address] Sep, [facility] [address] [id number] [address] [place] [address], [place] [address] Jul, [facility] [address] [id number] [address] [place] [address], [place] [id number] Jun, [facility] [address] [id number] [address] [place] [address], [place] [address] Jun, [facility] [address] [id number] [address] [place] [address], [place] [address] Jun, [facility] [address] [id number] [address] [place] [address], [place] [address] Jun, [facility] [address] [id number] [address] [place] [address], [place] [address] May, [facility] [address] [id number] [address] [place] [address], [place] [address] Apr, [facility] [address] [id number] [address] [place] [address], [place] [address] Jan, [facility] [address] [id number] [address] [place] [address], [place] [address] Dec, [facility] [address] [id number] [address] [place] [address], [place] [address] Dec, [facility] [address] [id number] [address] [place] [address], [place] [address] Nov, [facility] [address] [id number] [address] [place] [address], [place] [address] Oct, [facility] [address] [id number] [address] [place] [address], [place] [address] Oct, [facility] [address] [id number] [address] [place] [address], [place] [address] 18 Aug, 2011 [facility] [address] [id number] [address] [place] [address], [place] [address] 18 Aug, 2011 [facility] [address] [id number] [address] [place] [address], [place] [address] 18 Aug, 2011 [facility] [address] [id number] [address] [place] [address], [place] [address] 14 Aug, 2011 [facility] [address] [id number] [address] [place] [address], [place] [id number] 11 Aug, 2011 [facility] [address] [id number] [address] [place] [address], [place] [address] Aug, [facility] [address] [id number] [address] [place] [address], [place] [address] May, [facility] [address] [id number] [address] [place] [address], [place] [address] 13 Apr, 2011 [facility] [address] [id number] [address] [place] [address], [place] [id number] 18 Feb, 2011 [facility] [address] [id number] [address] [place] [address], [place] [address] 28 Oct, 2010 [facility] [address] [id number] [address] [place] [address], [place] [address] 21 Oct, 2010 [facility] [address] [id number] [address] [place] [address], [place] [id number] 07 Oct, 2010 [facility] [address] [id number] [address] [place] [address], [place] [address] 09 Sep, 2010 [facility] [address] [id number] [address] [place] [address], [place] [id number] 26 Aug, 2010 [facility] [address] [id number] [address] [place] [address], [place] [id number] 16 Jul, 2010 [facility] [address] [id number] [address] [place] [address], [place] [address] 13 May, 2010 [facility] [address] [id number] [address] [place] [id number] 19 Dec, 2009 [facility] [address] [id number] [address] [place] [id number] Nov, [facility] [address] [id number] [address] [place] [id number] 14 Oct, 2009 [facility] [address] [id number] [address] [place] [address], [place] [address] 27 Sep, 2009 [facility] [address] [id number] [address] [place] [id number] 05 Sep, 2009 [facility] [address] [id number] [address] [place] [id number] 14 Jul, 2009 [facility] [address] [address] [id number] [place] [id number] Jun, [facility] [address] [facility] [id number] [address], [place] [address] May, IMMUNIZATIONS No Known Immunizations SOCIAL HISTORY [...]
--- OUTSIDE RECORDS SUMMARY | 2020-06-11 20:51 | XMS REPORT ---
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 Name Role Phone PAULA ROBLEDO Unavailable PROBLEMS Type Condition ICD9-CM Code [id number] Code Onset Dates Condition S tatus SNOMED Code Problem Raynauds disease I73.00 Active 195 517786 Problem Venous insufficiency I87.2 Active 66025375 Problem Other chronic pain G89.29 Active 8 6551952 Problem Hypokalemia E87.6 Active 40142790 Problem Prediabetes R73.03 Active 07691304 2 Problem Low back pain M54.5 Active 486461 009 Problem Congenital deafness H90.5 Active 05146784 Problem Dysthymia F34.1 Active 82952489 Problem Neuropathy G62.9 Active [id number] ALLERGIES No Information ENCOUNTERS Encounter Location Date Diagnosis [place] [address] [place] [id number] [address] [place] [phone] Feb, [facility] [address] [id number] [address] [place] [phone] Jan, Neuropathy G62.9 [facility] [address] [id number] [address] [place] [phone] 14 Dec, 2019 Neuropathy G62.9 [facility] [address] [facility] [id number] [address] [place] [id number] Nov, Raynauds disease I73.00 ; Ve nous insufficiency I87.2 ; Prediabetes R73.03 and Neuropathy G62.9 [facility] [address] [facility] [id number] [address] [place] [phone] Jun, Congenital deafness H90.5 [facility] [address] [facility] [id number] [address] [place] [phone] Jun, Other chronic pain G89.29 [facility] [address] [id number] [address] [place] [phone] Jun, Acute kidney injury N17.9 [facility] [address] [facility] [id number] [address] [place] [id number] Jan, Abscess of left knee L02.416 [facility] [address] [id number] [address] [place] [phone] Jan, Prediabetes R73.03 ; Raynaud s disease I73.00 and Venous insufficiency I87.2 [place] [address] [address] Oct, Neuropathy G62.9 ; Low back pain M54.5 and URI (upper respiratory infection) J06.9 [place] [address] [place] [phone] Jul, Raynauds disease I73.00 and Hypokalemia E87.6 [facility] [address] [id number] [address] [place] [id number] May, Medicare annual wellness vis it, initial Z00.00 ; Dysthymia F34.1 ; Raynauds disease I73.00 ; Venous insufficiency I87.2 ; Congenital deafness H90.5 and Neuropathy G62.9 [facility] [address] [place] [phone] Apr, [place] [address] [place] [id number] [address] [place] [phone] Apr, Prediabetes R73.03 ; Raynaud s disease I73.00 ; Venous insufficiency I87.2 ; Neuropathy G62.9 and Dysthymia F34.1 [place] [address] [place] [id number] [address] [place] [phone] March, [place] [address] [address] Sep, Hyperglycemia R73.9 [facility] [address] [id number] [place] [phone] Sep, Hyperglycemia R73.9 [facility] [id number] [place] [phone] Sep, Raynauds disease I73.00 ; Ve nous insufficiency I87.2 and Encounter for immunization Z23 [facility] [address] [address] Jun, [facility] [address] [address] May, [place] [address] [address] May, Other chronic pain G89.29 [place] [address] [address] May, Raynauds disease I73.00 ; Ve nous insufficiency I87.2 and Low back pain M54.5 [place] [address] [address] Dec, Raynauds disease I73.00 ; Ve nous insufficiency I87.2 ; Low back pain M54.5 and Other chronic pain G89.29 [place] [address] [address] Nov, [facility] [address] [address] Nov, Muscle spasm M62.838 [facility] [id number] [place] [phone] Nov, [facility] [address] [address] Oct, Folliculitis L73.9 and Venou s insufficiency I87.2 [facility] [address] [id number] [place] [phone] Sep, Dermatitis L30.9 and Raynaud s disease I73.00 [facility] [address] [facility] [id number] [address] [place] [phone] Sep, Rash and nonspecific skin er uption R21 [facility] [address] [facility] [id number] [address] [place] [phone] Aug, Skin infection L08.9 [facility] [address] [facility] [id number] [address] [place] [phone] May, Infected smith L08.9 [facility] [address] [facility] [id number] [address] [place] [phone] May, Skin infection L08.9 [facility] [address] [facility] [id number] [address] [place] [phone] Dec, [facility] [address] [facility] [id number] [address] [place] [phone] Nov, [facility] [address] [facility] [id number] [address] [place] [phone] Nov, [facility] [address] [facility] [id number] [address] [place] [phone] Nov, Raynauds disease I73.00 [facility] [address] [facility] [id number] [address] [place] [phone] Nov, Raynauds disease I73.00 ; Le g cramps R25.2 ; Venous insufficiency I87.2 and Routine adult health maintenance Z00.00 [facility] [address] [facility] [id number] [address] [place] [phone] Jul, Infected sebaceous cyst 706. 2 [facility] [address] [facility] [id number] [address] [place] [phone] Jun, [facility] [address] [facility] [id number] [address] [place] [phone] Jun, [facility] [address] [id number] [address] [place] [phone] Jun, Venous insufficiency 459.81 and Raynauds disease 443.0 [facility] [address] [id number] [address] [place] [phone] Feb, [facility] [address] [id number] [address] [place] [phone] Feb, [facility] [address] [id number] [address] [place] [phone] Jan, [facility] [address] [id number] [address] [place] [address], [place] [address] Jan, [facility] [address] [id number] [address] [place] [phone] Dec, [facility] [address] [id number] [address] [place] [phone] Dec, [facility] [address] [id number] [address] [place] [address], [place] [phone] Dec, [facility] [address] [id number] [address] [place] [phone] Dec, [facility] [address] [id number] [address] [place] [phone] Nov, [facility] [address] [id number] [address] [place] [phone] Nov, [facility] [address] [id number] [address] [place] [phone] Oct, [facility] [address] [id number] [address] [place] [phone] Oct, [facility] [address] [id number] [address] [place] [phone] Aug, [facility] [address] [id number] [address] [place] [phone] Aug, [facility] [address] [id number] [facility] [place] [address] Aug, [facility] [address] [id number] [facility] [place] [address] Jul, [facility] [address] [id number] [facility] [place] [address] Jul, [facility] [address] [id number] [facility] [place] [address] Jul, [facility] [address] [id number] [facility] [place] [address] Jul, [facility] [address] [id number] [address] [place] [address], [place] [address] Jun, [facility] [address] [id number] [address] [place] [address], [place] [address] Jun, [facility] [address] [id number] [address] [place] [address], [place] [phone] Jun, [facility] [address] [id number] [address] [place] [address], [place] [phone] Jun, [facility] [address] [id number] [address] [place] [address], [place] [id number] May, [facility] [address] [id number] [address] [place] [address], [place] [phone] May, [facility] [address] [id number] [address] [place] [address], [place] [phone] May, [facility] [address] [id number] [address] [place] [address], [place] [address] May, [facility] [address] [id number] [address] [place] [address], [place] [phone] May, [facility] [address] [id number] [address] [place] [address], [place] [address] May, [facility] [address] [id number] [address] [place] [address], [place] [phone] May, [facility] [address] [id number] [address] [place] [address], [place] [phone] Apr, [facility] [address] [id number] [address] [place] [address], [place] [id number] Apr, [facility] [address] [id number] [address] [place] [address], [place] [phone] Apr, [facility] [address] [id number] [address] [place] [address], [place] [phone] Apr, [facility] [address] [id number] [address] [place] [address], [place] [id number] March, [facility] [address] [id number] [address] [place] [address], [place] [phone] March, [facility] [address] [id number] [address] [place] [address], [place] [phone] March, [facility] [address] [id number] [address] [place] [address], [place] [id number] March, [facility] [address] [id number] [address] [place] [address], [place] [phone] March, [facility] [address] [id number] [address] [place] [address], [place] [phone] March, [facility] [address] [id number] [address] [place] [address], [place] [phone] March, [facility] [address] [id number] [address] [place] [address], [place] [phone] Feb, [facility] [address] [id number] [address] [place] [address], [place] [id number] Feb, [facility] [address] [place] [id number] Feb, [facility] [address] [id number] [address] [place] [address], [place] [phone] Feb, [facility] [address] [id number] [address] [place] [address], [place] [phone] Feb, [facility] [address] [id number] [facility] [place] [phone] Feb, [facility] [address] [id number] [facility] [place] [address] Jan, [facility] [address] [id number] [facility] [place] [phone] Jan, [facility] [address] [id number] [address] [place] [address], [place] [phone] Jan, [facility] [address] [id number] [facility] [place] [address] Jan, [facility] [address] [id number] [address] [place] [address], [place] [address] Jan, [facility] [address] [id number] [address] [place] [address], [place] [id number] Jan, [facility] [address] [id number] [address] [place] [address], [place] [address] Jan, [facility] [address] [id number] [address] [place] [address], [place] [phone] Jan, [facility] [address] [id number] [address] [place] [address], [place] [address] Jan, [facility] [address] [id number] [address] [place] [address], [place] [address] Jan, [facility] [address] [id number] [address] [place] [address], [place] [address] Jan, [facility] [address] [id number] [address] [place] [address], [place] [address] Jan, [facility] [address] [id number] [address] [place] [address], [place] [id number] Jan, [facility] [address] [id number] [address] [place] [address], [place] [address] Jan, [facility] [address] [id number] [address] [place] [address], [place] [id number] 10 Jan, 2014 [facility] [address] [id number] [address] [place] [address], [place] [id number] 10 Jan, 2014 [facility] [address] [id number] [address] [place] [address], [place] [address] Jan, [facility] [address] [id number] [address] [place] [address], [place] [address] Jan, [facility] [address] [id number] [address] [place] [address], [place] [address] Dec, [facility] [address] [id number] [address] [place] [address], [place] [address] Dec, [facility] [address] [id number] [address] [place] [address], [place] [address] Dec, [facility] [address] [id number] [address] [place] [address], [place] [id number] 17 Dec, 2013 [facility] [address] [id number] [address] [place] [address], [place] [id number] 14 Dec, 2013 [facility] [address] [id number] [address] [place] [address], [place] [id number] 07 Dec, 2013 [facility] [address] [id number] [address] [place] [address], [place] [id number] 07 Dec, 2013 [facility] [address] [id number] [address] [place] [address], [place] [id number] 06 Dec, 2013 [facility] [address] [id number] [address] [place] [address], [place] [id number] 04 Dec, 2013 [facility] [address] [id number] [address] [place] [address], [place] [address] 04 Dec, 2013 [facility] [address] [id number] [address] [place] [address], [place] [address] 04 Dec, 2013 [facility] [address] [id number] [address] [place] [phone] Dec, [facility] [address] [id number] [address] [place] [address], [place] [phone] Nov, [facility] [address] [id number] [address] [place] [phone] Nov, [facility] [address] [id number] [address] [place] [address], [place] [phone] Nov, [facility] [address] [id number] [address] [place] [address], [place] [address] Nov, [facility] [address] [id number] [address] [place] [address], [place] [address] Nov, [facility] [address] [id number] [address] [place] [address], [place] [id number] Nov, [facility] [address] [id number] [address] [place] [phone] Nov, [facility] [address] [id number] [address] [place] [address], [place] [address] Oct, [facility] [address] [id number] [address] [place] [phone] Oct, [facility] [address] [id number] [address] [place] [phone] Sep, [facility] [address] [id number] [address] [place] [address], [place] [id number] Sep, [facility] [address] [id number] [address] [place] [phone] Sep, [facility] [address] [id number] [address] [place] [phone] Sep, [facility] [address] [id number] [address] [place] [phone] Aug, [facility] [address] [id number] [address] [place] [phone] Aug, [facility] [address] [id number] [address] [place] [address], [place] [id number] Aug, [facility] [address] [id number] [address] [place] [address], [place] [id number] Jul, [facility] [address] [id number] [address] [place] [address], [place] [address] Jul, [facility] [address] [id number] [address] [place] [address], [place] [address] Jun, [facility] [address] [id number] [address] [place] [address], [place] [phone] Jun, [facility] [address] [id number] [address] [place] [address], [place] [address] Jun, [facility] [address] [id number] [address] [place] [address], [place] [id number] May, [facility] [address] [id number] [address] [place] [address], [place] [id number] May, [facility] [address] [id number] [address] [place] [address], [place] [phone] May, [facility] [address] [id number] [address] [place] [address], [place] [id number] Apr, [facility] [address] [id number] [address] [place] [address], [place] [phone] Apr, [facility] [address] [id number] [address] [place] [address], [place] [id number] March, [facility] [address] [id number] [address] [place] [address], [place] [id number] Feb, [facility] [address] [id number] [address] [place] [address], [place] [id number] Jan, [facility] [address] [id number] [address] [place] [address], [place] [id number] 2013 [facility] [address] [id number] [address] [place] [address] [address] Dec, [facility] [address] [id number] [address] [place] [address], [place] [address] Nov, [facility] [address] [id number] [address] [place] [address], [place] [phone] Oct, [facility] [address] [id number] [address] [place] [address], [place] [id number] Oct, [facility] [address] [id number] [address] [place] [address], [place] [id number] Sep, [facility] [address] [id number] [address] [place] [address], [place] [id number] Sep, [facility] [address] [id number] [address] [place] [address], [place] [id number] Sep, [facility] [address] [id number] [address] [place] [address], [place] [id number] Sep, [facility] [address] [id number] [address] [place] [address], [place] [id number] Sep, [facility] [address] [id number] [address] [place] [address], [place] [id number] Sep, [facility] [address] [id number] [address] [place] [address], [place] [id number] Sep, [facility] [address] [id number] [address] [place] [address], [place] [id number] Sep, [facility] [address] [id number] [address] [place] [address], [place] [id number] Jul, [facility] [address] [id number] [address] [place] [address], [place] [id number] Jun, [facility] [address] [id number] [address] [place] [address], [place] [address] Jun, [facility] [address] [id number] [address] [place] [address], [place] [address] Jun, [facility] [address] [id number] [address] [place] [address], [place] [id number] Jun, [facility] [address] [id number] [address] [place] [address], [place] [id number] May, [facility] [address] [id number] [address] [place] [address], [place] [id number] Apr, [facility] [address] [id number] [address] [place] [address], [place] [id number] Jan, [facility] [address] [id number] [address] [place] [address], [place] [id number] Dec, [facility] [address] [id number] [address] [place] [address], [place] [address] Dec, [facility] [address] [id number] [address] [place] [address], [place] [id number] Nov, [facility] [address] [id number] [address] [place] [address], [place] [id number] Oct, [facility] [address] [id number] [address] [place] [address], [place] [id number] Oct, [facility] [address] [id number] [address] [place] [address], [place] [id number] 18 Aug, 2011 [facility] [address] [id number] [address] [place] [address], [place] [id number] 18 Aug, 2011 [facility] [address] [id number] [address] [place] [address], [place] [id number] 18 Aug, 2011 [facility] [address] [id number] [address] [place] [address], [place] [id number] 14 Aug, 2011 [facility] [address] [id number] [address] [place] [address], [place] [id number] 11 Aug, 2011 [facility] [address] [id number] [address] [place] [address], [place] [id number] Aug, [facility] [address] [id number] [address] [place] [address], [place] [id number] May, [facility] [address] [id number] [address] [place] [address], [place] [id number] 13 Apr, 2011 [facility] [address] [id number] [address] [place] [address], [place] [id number] 18 Feb, 2011 [facility] [address] [id number] [address] [place] [address], [place] [id number] 28 Oct, 2010 [facility] [address] [id number] [address] [place] [address], [place] [id number] 21 Oct, 2010 [facility] [address] [id number] [address] [place] [address], [place] [id number] 07 Oct, 2010 [facility] [address] [id number] [address] [place] [address], [place] [id number] 09 Sep, 2010 [facility] [address] [id number] [address] [place] [address], [place] [id number] 26 Aug, 2010 [facility] [address] [id number] [address] [place] [address], [place] [id number] 16 Jul, 2010 [facility] [address] [id number] [address] [place] [address], [place] [id number] 13 May, 2010 [facility] [address] [id number] [address] [place] [id number] 19 Dec, 2009 [facility] [address] [id number] [address] [place] [id number] Nov, [facility] [address] [id number] [address] [place] [id number] 14 Oct, 2009 [facility] [address] [id number] [address] [place] [address], [place] [id number] 27 Sep, 2009 [facility] [address] [id number] [address] [place] [id number] 05 Sep, 2009 [facility] [address] [id number] [address] [place] [id number] 14 Jul, 2009 [facility] [address] [id number] [address] [place] [id number] Jun, [facility] [address] [facility] [id number] [address] [id number] May, IMMUNIZATIONS No Known Immunizations SOCIAL HISTORY [...]
--- OUTSIDE RECORDS SUMMARY | 2020-06-11 20:51 | XMS REPORT ---
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 Name Role Phone PALUA ROBLEDO Unavailable PROBLEMS Type Condition ICD9-CM Code HAL16-SU Code Onset Dates Condition S tatus SNOMED Code Problem Raynauds disease I73.00 Active 195 065225 Problem Venous insufficiency I87.2 Active 99687721 Problem Other chronic pain G89.29 Active 8 7559137 Problem Hypokalemia E87.6 Active 86423425 Problem Prediabetes R73.03 Active 58228960 2 Problem Low back pain M54.5 Active 331853 009 Problem Congenital deafness H90.5 Active 22773013 Problem Dysthymia F34.1 Active 20998718 Problem Neuropathy G62.9 Active [id number] ALLERGIES No Information ENCOUNTERS Encounter Location Date Diagnosis [place] [address] [place] [id number] [address] [place] [address] Feb, [facility] [place] [address] [place] [address] [id number] [address] [place] [address] Jan, Neuropathy G62.9 [facility] [place] [address] [place] [id number] [address] [place] [address] 14 Dec, 2019 Neuropathy G62.9 [facility] [place] [address] [facility] [id number] [address] [place] [address] Nov, Raynauds disease I73.00 ; Ve nous insufficiency I87.2 ; Prediabetes R73.03 and Neuropathy G62.9 [facility] [place] [address] [facility] [id number] [address] [place] [address] Jun, Congenital deafness H90.5 [facility] [place] [address] [facility] [id number] [address] [place] [address] Jun, Other chronic pain G89.29 [facility] [place] [address] [place] [id number] [address] [place] [address] Jun, Acute kidney injury N17.9 [facility] [address] [facility] [id number] [address] [place] [address] Jan, Abscess of left knee L02.416 [facility] [place] [address] [place] [id number] [address] [place] [address] Jan, Prediabetes R73.03 ; Raynaud s disease I73.00 and Venous insufficiency I87.2 [place] [address] [address] Oct, Neuropathy G62.9 ; Low back pain M54.5 and URI (upper respiratory infection) J06.9 [place] [id number] [place] [address] Jul, Raynauds disease I73.00 and Hypokalemia E87.6 [facility] [place] [address] [place] [id number] [address] [place] [address] May, Medicare annual wellness vis it, initial Z00.00 ; Dysthymia F34.1 ; Raynauds disease I73.00 ; Venous insufficiency I87.2 ; Congenital deafness H90.5 and Neuropathy G62.9 [facility] [place] [address] [place] [address] Apr, [place] [address] [place] [id number] [address] [place] [address] Apr, Prediabetes R73.03 ; Raynaud s disease I73.00 ; Venous insufficiency I87.2 ; Neuropathy G62.9 and Dysthymia F34.1 [place] [address] [place] [id number] [address] [place] [address] March, [place] [address] [address] Sep, Hyperglycemia R73.9 [facility] [place] [address] [place] [address] [id number] [place] [address] Sep, Hyperglycemia R73.9 [facility] [place] [address] [place] [id number] [place] [address] Sep, Raynauds disease I73.00 ; Ve nous insufficiency I87.2 and Encounter for immunization Z23 [facility] [place] [address] [address] Jun, [facility] [place] [address] [address] May, [place] [address] [address] May, Other chronic pain G89.29 [place] [address] [address] May, Raynauds disease I73.00 ; Ve nous insufficiency I87.2 and Low back pain M54.5 [place] [address] [address] Dec, Raynauds disease I73.00 ; Ve nous insufficiency I87.2 ; Low back pain M54.5 and Other chronic pain G89.29 [place] [address] [address] Nov, [facility] [place] [address] [address] Nov, Muscle spasm M62.838 [facility] [address] [place] [id number] [place] [address] Nov, [facility] [place] [address] [address] Oct, Folliculitis L73.9 and Venou s insufficiency I87.2 [facility] [place] [address] [place] [id number] [place] [address] Sep, Dermatitis L30.9 and Raynaud s disease I73.00 [facility] [address] [facility] [id number] [address] [place] [address] Sep, Rash and nonspecific skin er uption R21 [facility] [place] [address] [facility] [id number] [address] [place] [address] Aug, Skin infection L08.9 [facility] [place] [address] [facility] [id number] [address] [place] [address] May, Infected smith L08.9 [facility] [place] [address] [facility] [id number] [address] [place] [address] May, Skin infection L08.9 [facility] [place] [address] [facility] [id number] [address] [place] [address] Dec, [facility] [place] [address] [facility] [id number] [address] [place] [address] Nov, [facility] [place] [address] [facility] [id number] [address] [place] [address] Nov, [facility] [place] [address] [facility] [id number] [address] [place] [address] Nov, Raynauds disease I73.00 [facility] [place] [address] [facility] [id number] [address] [place] [address] Nov, Raynauds disease I73.00 ; Le g cramps R25.2 ; Venous insufficiency I87.2 and Routine adult health maintenance Z00.00 [facility] [place] [address] [facility] [id number] [address] [place] [address] Jul, Infected sebaceous cyst 706. 2 [facility] [place] [address] [facility] [id number] [address] [place] [address] Jun, [facility] [place] [address] [facility] [id number] [address] [place] [address] Jun, [facility] [place] [address] [id number] [address] [place] [address] Jun, Venous insufficiency 459.81 and Raynauds disease 443.0 [facility] [address] [id number] [address] [place] [address] Feb, [facility] [address] [id number] [address] [place] [address] Feb, [facility] [address] [id number] [address] [place] [address] Jan, [facility] [address] [id number] [address] [place] [address], [place] [address] Jan, [facility] [address] [id number] [address] [place] [address] Dec, [facility] [address] [id number] [address] [place] [address] Dec, [facility] [address] [id number] [address] [place] [address], [place] [address] Dec, [facility] [address] [id number] [address] [place] [address] Dec, [facility] [address] [id number] [address] [place] [address] Nov, [facility] [address] [id number] [address] [place] [address] Nov, [facility] [address] [id number] [address] [place] [address] Oct, [facility] [address] [id number] [address] [place] [address] Oct, [facility] [address] [id number] [address] [place] [address] Aug, [facility] [address] [id number] [address] [place] [address] Aug, [facility] [address] [id number] [facility] [place] [address] Aug, [facility] [address] [id number] [facility] [place] [address] Jul, [facility] [address] [id number] [facility] [place] [address] Jul, [facility] [address] [id number] [facility] [place] [address] Jul, [facility] [address] [id number] [facility] [place] [address] Jul, [facility] [address] [id number] [address] [place] [address], [place] [address] Jun, [facility] [address] [id number] [address] [place] [address], [place] [address] Jun, [facility] [address] [id number] [address] [place] [address], [place] [address] Jun, [facility] [address] [id number] [address] [place] [address], [place] [address] Jun, [facility] [address] [id number] [address] [place] [address], [place] [address] May, [facility] [address] [id number] [address] [place] [address], [place] [address] May, [facility] [address] [id number] [address] [place] [address], [place] [address] May, [facility] [address] [id number] [address] [place] [address], [place] [address] May, [facility] [address] [id number] [address] [place] [address], [place] [address] May, [facility] [address] [id number] [address] [place] [address], [place] [address] May, [facility] [address] [id number] [address] [place] [address], [place] [address] May, [facility] [address] [id number] [address] [place] [address], [place] [address] Apr, [facility] [address] [id number] [address] [place] [address], [place] [address] Apr, [facility] [address] [id number] [address] [place] [address], [place] [address] Apr, [facility] [address] [id number] [address] [place] [address], [place] [address] Apr, [facility] [address] [id number] [address] [place] [address], [place] [address] March, [facility] [address] [id number] [address] [place] [address], [place] [address] March, [facility] [address] [id number] [address] [place] [address], [place] [address] March, [facility] [address] [id number] [address] [place] [address], [place] [address] March, [facility] [address] [id number] [address] [place] [address], [place] [address] March, [facility] [address] [id number] [address] [place] [address], [place] [address] March, [facility] [address] [id number] [address] [place] [address], [place] [address] March, [facility] [address] [id number] [address] [place] [address], [place] [address] Feb, [facility] [address] [id number] [address] [place] [address], [place] [address] Feb, [facility] [address] [place] [id number] Feb, [facility] [address] [id number] [address] [place] [address], [place] [address] Feb, [facility] [address] [id number] [address] [place] [address], [place] [address] Feb, [facility] [address] [id number] [facility] [place] [address] Feb, [facility] [address] [id number] [facility] [place] [address] Jan, [facility] [address] [id number] [facility] [place] [address] Jan, [facility] [address] [id number] [address] [place] [address], [place] [address] Jan, [facility] [address] [id number] [facility] [place] [address] Jan, [facility] [address] [id number] [address] [place] [address], [place] [address] Jan, [facility] [address] [id number] [address] [place] [address], [place] [address] Jan, [facility] [address] [id number] [address] [place] [address], [place] [address] Jan, [facility] [address] [id number] [address] [place] [address], [place] [address] Jan, [facility] [address] [id number] [address] [place] [address], [place] [address] Jan, [facility] [address] [id number] [address] [place] [address], [place] [address] Jan, [facility] [address] [id number] [address] [place] [address], [place] [address] Jan, [facility] [address] [id number] [address] [place] [address], [place] [address] Jan, [facility] [address] [id number] [address] [place] [address], [place] [address] Jan, [facility] [address] [id number] [address] [place] [address], [place] [address] Jan, [facility] [address] [id number] [address] [place] [address], [place] [address] 10 Jan, 2014 [facility] [address] [id number] [address] [place] [address], [place] [address] 10 Jan, 2014 [facility] [address] [id number] [address] [place] [address], [place] [address] Jan, [facility] [address] [id number] [address] [place] [address], [place] [address] Jan, [facility] [address] [id number] [address] [place] [address], [place] [address] Dec, [facility] [address] [id number] [address] [place] [address], [place] [address] Dec, [facility] [address] [id number] [address] [place] [address], [place] [address] Dec, [facility] [address] [id number] [address] [place] [address], [place] [address] 17 Dec, 2013 [facility] [address] [id number] [address] [place] [address], [place] [address] 14 Dec, 2013 [facility] [address] [id number] [address] [place] [address], [place] [address] 07 Dec, 2013 [facility] [address] [id number] [address] [place] [address], [place] [address] 07 Dec, 2013 [facility] [address] [id number] [address] [place] [address], [place] [address] 06 Dec, 2013 [facility] [address] [id number] [address] [place] [address], [place] [address] 04 Dec, 2013 [facility] [address] [id number] [address] [place] [address], [place] [address] 04 Dec, 2013 [facility] [address] [id number] [address] [place] [address], [place] [address] 04 Dec, 2013 [facility] [address] [id number] [address] [place] [address] Dec, [facility] [address] [id number] [address] [place] [address], [place] [address] Nov, [facility] [address] [id number] [address] [place] [address] Nov, [facility] [address] [id number] [address] [place] [address], [place] [address] Nov, [facility] [address] [id number] [address] [place] [address], [place] [address] Nov, [facility] [address] [id number] [address] [place] [address], [place] [address] Nov, [facility] [address] [id number] [address] [place] [address], [place] [address] Nov, [facility] [address] [id number] [address] [place] [address] Nov, [facility] [address] [id number] [address] [place] [address], [place] [address] Oct, [facility] [address] [id number] [address] [place] [address] Oct, [facility] [address] [id number] [address] [place] [address] Sep, [facility] [address] [id number] [address] [place] [address], [place] [address] Sep, [facility] [address] [id number] [address] [place] [address] Sep, [facility] [address] [id number] [address] [place] [address] Sep, [facility] [address] [id number] [address] [place] [address] Aug, [facility] [address] [id number] [address] [place] [address] Aug, [facility] [address] [id number] [address] [place] [address], [place] [address] Aug, [facility] [address] [id number] [address] [place] [address], [place] [address] Jul, [facility] [address] [id number] [address] [place] [address], [place] [address] Jul, [facility] [address] [id number] [address] [place] [address], [place] [address] Jun, [facility] [address] [id number] [address] [place] [address], [place] [address] Jun, [facility] [address] [id number] [address] [place] [address], [place] [address] Jun, [facility] [address] [id number] [address] [place] [address], [place] [address] May, [facility] [address] [id number] [address] [place] [address], [place] [address] May, [facility] [address] [id number] [address] [place] [address], [place] [address] May, [facility] [address] [id number] [address] [place] [address], [place] [address] Apr, [facility] [address] [id number] [address] [place] [address], [place] [address] Apr, [facility] [address] [id number] [address] [place] [address], [place] [address] March, [facility] [address] [id number] [address] [place] [address], [place] [address] Feb, [facility] [address] [id number] [address] [place] [address], [place] [address] Jan, [facility] [address] [id number] [address] [place] [address], [place] [address] 2013 [facility] [address] [id number] [address] [place] [address] [address] Dec, [facility] [address] [id number] [address] [place] [address], [place] [address] Nov, [facility] [address] [id number] [address] [place] [address], [place] [address] Oct, [facility] [address] [id number] [address] [place] [address], [place] [address] Oct, [facility] [address] [id number] [address] [place] [address], [place] [address] Sep, [facility] [address] [id number] [address] [place] [address], [place] [address] Sep, [facility] [address] [id number] [address] [place] [address], [place] [address] Sep, [facility] [address] [id number] [address] [place] [address], [place] [address] Sep, [facility] [address] [id number] [address] [place] [address], [place] [address] Sep, [facility] [address] [id number] [address] [place] [address], [place] [address] Sep, [facility] [address] [id number] [address] [place] [address], [place] [address] Sep, [facility] [address] [id number] [address] [place] [address], [place] [address] Sep, [facility] [address] [id number] [address] [place] [address], [place] [address] Jul, [facility] [address] [id number] [address] [place] [address], [place] [address] Jun, [facility] [address] [id number] [address] [place] [address], [place] [address] Jun, [facility] [address] [id number] [address] [place] [address], [place] [address] Jun, [facility] [address] [id number] [address] [place] [address], [place] [address] Jun, [facility] [address] [id number] [address] [place] [address], [place] [address] May, [facility] [address] [id number] [address] [place] [address], [place] [address] Apr, [facility] [address] [id number] [address] [place] [address], [place] [address] Jan, [facility] [address] [id number] [address] [place] [address], [place] [address] Dec, [facility] [address] [id number] [address] [place] [address], [place] [address] Dec, [facility] [address] [id number] [address] [place] [address], [place] [address] Nov, [facility] [address] [id number] [address] [place] [address], [place] [address] Oct, [facility] [address] [id number] [address] [place] [address], [place] [address] Oct, [facility] [address] [id number] [address] [place] [address], [place] [address] 18 Aug, 2011 [facility] [address] [id number] [address] [place] [address], [place] [address] 18 Aug, 2011 [facility] [address] [id number] [address] [place] [address], [place] [address] 18 Aug, 2011 [facility] [address] [id number] [address] [place] [address], [place] [address] 14 Aug, 2011 [facility] [address] [id number] [address] [place] [address], [place] [address] 11 Aug, 2011 [facility] [address] [id number] [address] [place] [address], [place] [address] Aug, [facility] [address] [id number] [address] [place] [address], [place] [address] May, [facility] [address] [id number] [address] [place] [address], [place] [address] 13 Apr, 2011 [facility] [address] [id number] [address] [place] [address], [place] [address] 18 Feb, 2011 [facility] [address] [id number] [address] [place] [address], [place] [address] 28 Oct, 2010 [facility] [address] [id number] [address] [place] [address], [place] [address] 21 Oct, 2010 [facility] [address] [id number] [address] [place] [address], [place] [address] 07 Oct, 2010 [facility] [address] [id number] [address] [place] [address], [place] [address] 09 Sep, 2010 [facility] [address] [id number] [address] [place] [address], [place] [address] 26 Aug, 2010 [facility] [address] [id number] [address] [place] [address], [place] [address] 16 Jul, 2010 [facility] [address] [id number] [address] [place] [address], [place] [address] 13 May, 2010 [facility] [address] [id number] [address] [place] [address] [id number] 19 Dec, 2009 [facility] [address] [id number] [address] [place] [phone] Nov, [facility] [address] [id number] [address] [place] [id number] 14 Oct, 2009 [facility] [address] [id number] [address] [place] [address], [place] [phone] 27 Sep, 2009 [facility] [address] [id number] [address] [place] [id number] 05 Sep, 2009 [facility] [address] [id number] [address] [place] [id number] 14 Jul, 2009 [facility] [address] [id number] [address] [place] [id number] Jun, [facility] [place] [address] [facility] [id number] [address] [place] [phone] May, IMMUNIZATIONS No Known Immunizations SOCIAL HISTORY Never Assessed REASON FOR VISIT PLAN OF CARE VITAL SIGNS Height 73 in 2012-07-23 Weight 237.2 lbs 2012-07-23 Temperature 97.9 degrees Fahrenheit 2012-07-23 Heart Rate 88 bpm 2012-07-23 Respiratory Rate 24 2012-07-23 Blood pressure systolic 110 mmHg 2012-07-23 Blood pressure diastolic 76 mmHg 2012-07-23 MEDICATIONS Unknown Medications RESULTS No Results PROCEDURES [...]
--- OUTSIDE RECORDS SUMMARY | 2020-06-11 20:51 | XMS REPORT ---
Author Author Jd ROBLEDO Organization [facility] Address [address] [place] [address] Care Team Providers Care Pattern Vault Clerk Name Role Phone PAULA ROBLEDO Unavailable PROBLEMS Type Condition ICD9-CM Code DCT51-OS Code Onset Dates Condition S tatus SNOMED Code Problem Raynauds disease I73.00 Active 195 800924 Problem Venous insufficiency I87.2 Active 37401286 Problem Other chronic pain G89.29 Active 8 8729092 Problem Hypokalemia E87.6 Active 82315104 Problem Prediabetes R73.03 Active 07347902 2 Problem Low back pain M54.5 Active 231371 009 Problem Congenital deafness H90.5 Active 34724515 Problem Dysthymia F34.1 Active 25696833 Problem Neuropathy G62.9 Active [id number] ALLERGIES No Information ENCOUNTERS Encounter Location Date Diagnosis [place] [address] [place] [id number] [place] [address] Feb, [facility] [address] [id number] [address] [place] [address] Jan, Neuropathy G62.9 [facility] [address] [id number] [address] [place] [address] 14 Dec, 2019 Neuropathy G62.9 [facility] [address] [facility] [id number] [address] [place] [address] Nov, Raynauds disease I73.00 ; Ve nous insufficiency I87.2 ; Prediabetes R73.03 and Neuropathy G62.9 [facility] [address] [facility] [id number] [address] [place] [address] Jun, Congenital deafness H90.5 [facility] [address] [facility] [id number] [address] [place] [address] Jun, Other chronic pain G89.29 [facility] [address] [id number] [address] [place] [address] Jun, Acute kidney injury N17.9 [facility] [address] [facility] [id number] [address] [place] [address] Jan, Abscess of left knee L02.416 [facility] [address] [id number] [address] [place] [address] Jan, Prediabetes R73.03 ; Raynaud s disease I73.00 and Venous insufficiency I87.2 [place] [address] [address] Oct, Neuropathy G62.9 ; Low back pain M54.5 and URI (upper respiratory infection) J06.9 [place] [id number] [place] [address] Jul, Raynauds disease I73.00 and Hypokalemia E87.6 [facility] [address] [id number] [address] [place] [address] May, Medicare annual wellness vis it, initial Z00.00 ; Dysthymia F34.1 ; Raynauds disease I73.00 ; Venous insufficiency I87.2 ; Congenital deafness H90.5 and Neuropathy G62.9 [facility] [id number] [place] [address] Apr, [place] [address] [place] [id number] [place] [address] Apr, Prediabetes R73.03 ; Raynaud s disease I73.00 ; Venous insufficiency I87.2 ; Neuropathy G62.9 and Dysthymia F34.1 [place] [address] [place] [id number] [address] [place] [address] March, [place] [address] [address] Sep, Hyperglycemia R73.9 [facility] [address] [id number] [place] [address] Sep, Hyperglycemia R73.9 [facility] [address] [id number] [place] [address] Sep, Raynauds disease I73.00 ; Ve nous insufficiency I87.2 and Encounter for immunization Z23 [facility] [address] [address] Jun, [facility] [address] [address] May, [place] [address] [address] May, Other chronic pain G89.29 [place] [address] [address] May, Raynauds disease I73.00 ; Ve nous insufficiency I87.2 and Low back pain M54.5 [place] [address] [address] Dec, Raynauds disease I73.00 ; Ve nous insufficiency I87.2 ; Low back pain M54.5 and Other chronic pain G89.29 [place] [address] [address] Nov, [facility] [address] [address] Nov, Muscle spasm M62.838 [facility] [address] [place] [id number] [place] [address] Nov, [facility] [address] [address] Oct, Folliculitis L73.9 and Venou s insufficiency I87.2 [facility] [address] [id number] [place] [address] Sep, Dermatitis L30.9 and Raynaud s disease I73.00 [facility] [address] [facility] [id number] [address] [place] [address] Sep, Rash and nonspecific skin er uption R21 [facility] [address] [facility] [id number] [address] [place] [address] Aug, Skin infection L08.9 [facility] [address] [facility] [id number] [address] [place] [address] May, Infected smith L08.9 [facility] [address] [facility] [id number] [address] [place] [address] May, Skin infection L08.9 [facility] [address] [facility] [id number] [address] [place] [address] Dec, [facility] [address] [facility] [id number] [address] [place] [address] Nov, [facility] [address] [facility] [id number] [address] [place] [address] Nov, [facility] [address] [facility] [id number] [address] [place] [address] Nov, Raynauds disease I73.00 [facility] [address] [facility] [id number] [address] [place] [address] Nov, Raynauds disease I73.00 ; Le g cramps R25.2 ; Venous insufficiency I87.2 and Routine adult health maintenance Z00.00 [facility] [address] [facility] [id number] [address] [place] [address] Jul, Infected sebaceous cyst 706. 2 [facility] [address] [facility] [id number] [address] [place] [address] Jun, [facility] [address] [facility] [id number] [address] [place] [address] Jun, [facility] [address] [id number] [address] [place] [address] Jun, Venous insufficiency 459.81 and Raynauds disease 443.0 [facility] [address] [id number] [address] [place] [address] Feb, [facility] [address] [id number] [address] [place] [address] Feb, [facility] [address] [id number] [address] [place] [address] Jan, [facility] [address] [id number] [address] [place] [address], [place] [address] Jan, [facility] [address] [id number] [address] [place] [address] Dec, [facility] [address] [id number] [address] [place] [address] Dec, [facility] [address] [id number] [address] [place] [address], [place] [address] Dec, [facility] [address] [id number] [address] [place] [address] Dec, [facility] [address] [id number] [address] [place] [address] Nov, [facility] [address] [id number] [address] [place] [address] Nov, [facility] [address] [id number] [address] [place] [address] Oct, [facility] [address] [id number] [address] [place] [address] Oct, [facility] [address] [id number] [address] [place] [address] Aug, [facility] [address] [id number] [address] [place] [address] Aug, [facility] [address] [id number] [facility] [place] [address] Aug, [facility] [address] [id number] [facility] [place] [address] Jul, [facility] [address] [id number] [facility] [place] [address] Jul, [facility] [address] [id number] [facility] [place] [address] Jul, [facility] [address] [id number] [facility] [place] [address] Jul, [facility] [address] [id number] [address] [place] [address], [place] [address] Jun, [facility] [address] [id number] [address] [place] [address], [place] [address] Jun, [facility] [address] [id number] [address] [place] [address], [place] [address] Jun, [facility] [address] [id number] [address] [place] [address], [place] [address] Jun, [facility] [address] [id number] [address] [place] [address], [place] [address] May, [facility] [address] [id number] [address] [place] [address], [place] [address] May, [facility] [address] [id number] [address] [place] [address], [place] [address] May, [facility] [address] [id number] [address] [place] [address], [place] [address] May, [facility] [address] [id number] [address] [place] [address], [place] [address] May, [facility] [address] [id number] [address] [place] [address], [place] [address] May, [facility] [address] [id number] [address] [place] [address], [place] [address] May, [facility] [address] [id number] [address] [place] [address], [place] [address] Apr, [facility] [address] [id number] [address] [place] [address], [place] [address] Apr, [facility] [address] [id number] [address] [place] [address], [place] [address] Apr, [facility] [address] [id number] [address] [place] [address], [place] [address] Apr, [facility] [address] [id number] [address] [place] [address], [place] [address] March, [facility] [address] [id number] [address] [place] [address], [place] [address] March, [facility] [address] [id number] [address] [place] [address], [place] [address] March, [facility] [address] [id number] [address] [place] [address], [place] [address] March, [facility] [address] [id number] [address] [place] [address], [place] [address] March, [facility] [address] [id number] [address] [place] [address], [place] [address] March, [facility] [address] [id number] [address] [place] [address], [place] [address] March, [facility] [address] [id number] [address] [place] [address], [place] [address] Feb, [facility] [address] [id number] [address] [place] [address], [place] [address] Feb, [facility] [address] [place] [id number] Feb, [facility] [address] [id number] [address] [place] [address], [place] [address] Feb, [facility] [address] [id number] [address] [place] [address], [place] [address] Feb, [facility] [address] [id number] [facility] [place] [address] Feb, [facility] [address] [id number] [facility] [place] [address] Jan, [facility] [address] [id number] [facility] [address] Jan, [facility] [address] [id number] [address] [place] [address], [place] [address] Jan, [facility] [address] [id number] [facility] [place] [address] Jan, [facility] [address] [id number] [address] [place] [address], [place] [address] Jan, [facility] [address] [id number] [address] [place] [address], [place] [address] Jan, [facility] [address] [id number] [address] [place] [address], [place] [address] Jan, [facility] [address] [id number] [address] [place] [address], [place] [address] Jan, [facility] [address] [id number] [address] [place] [address], [place] [address] Jan, [facility] [address] [id number] [address] [place] [address], [place] [address] Jan, [facility] [address] [id number] [address] [place] [address], [place] [address] Jan, [facility] [address] [id number] [address] [place] [address], [place] [address] Jan, [facility] [address] [id number] [address] [place] [address], [place] [address] Jan, [facility] [address] [id number] [address] [place] [address], [place] [address] Jan, [facility] [address] [id number] [address] [place] [address], [place] [address] 10 Jan, 2014 [facility] [address] [id number] [address] [place] [address], [place] [address] 10 Jan, 2014 [facility] [address] [id number] [address] [place] [address], [place] [address] Jan, [facility] [address] [id number] [address] [place] [address], [place] [address] Jan, [facility] [address] [id number] [address] [place] [address], [place] [address] Dec, [facility] [address] [id number] [address] [place] [address], [place] [address] Dec, [facility] [address] [id number] [address] [place] [address], [place] [address] Dec, [facility] [address] [id number] [address] [place] [address], [place] [address] 17 Dec, 2013 [facility] [address] [id number] [address] [place] [address], [place] [address] 14 Dec, 2013 [facility] [address] [id number] [address] [place] [address], [place] [address] 07 Dec, 2013 [facility] [address] [id number] [address] [place] [address], [place] [address] 07 Dec, 2013 [facility] [address] [id number] [address] [place] [address], [place] [address] 06 Dec, 2013 [facility] [address] [id number] [address] [place] [address], [place] [address] 04 Dec, 2013 [facility] [address] [id number] [address] [place] [address], [place] [address] 04 Dec, 2013 [facility] [address] [id number] [address] [place] [address], [place] [address] 04 Dec, 2013 [facility] [address] [id number] [address] [place] [address] Dec, [facility] [address] [id number] [address] [place] [address], [place] [address] Nov, [facility] [address] [id number] [address] [place] [address] Nov, [facility] [address] [id number] [address] [place] [address], [place] [address] Nov, [facility] [address] [id number] [address] [place] [address], [place] [address] Nov, [facility] [address] [id number] [address] [place] [address], [place] [address] Nov, [facility] [address] [id number] [address] [place] [address], [place] [address] Nov, [facility] [address] [id number] [address] [place] [address] Nov, [facility] [address] [id number] [address] [place] [address], [place] [address] Oct, [facility] [address] [id number] [address] [place] [address] Oct, [facility] [address] [id number] [address] [place] [address] Sep, [facility] [address] [id number] [address] [place] [address], [place] [address] Sep, [facility] [address] [id number] [address] [place] [address] Sep, [facility] [address] [id number] [address] [place] [address] Sep, [facility] [address] [id number] [address] [place] [address] Aug, [facility] [address] [id number] [address] [place] [address] Aug, [facility] [address] [id number] [address] [place] [address], [place] [address] Aug, [facility] [address] [id number] [address] [place] [address], [place] [address] Jul, [facility] [address] [id number] [address] [place] [address], [place] [address] Jul, [facility] [address] [id number] [address] [place] [address], [place] [address] Jun, [facility] [address] [id number] [address] [place] [address], [place] [address] Jun, [facility] [address] [id number] [address] [place] [address], [place] [address] Jun, [facility] [address] [id number] [address] [place] [address], [place] [address] May, [facility] [address] [id number] [address] [place] [address], [place] [address] May, [facility] [address] [id number] [address] [place] [address], [place] [address] May, [facility] [address] [id number] [address] [place] [address], [place] [address] Apr, [facility] [address] [id number] [address] [place] [address], [place] [address] Apr, [facility] [address] [id number] [address] [place] [address], [place] [address] March, [facility] [address] [id number] [address] [place] [address], [place] [address] Feb, [facility] [address] [id number] [address] [place] [address], [place] [address] Jan, [facility] [address] [id number] [address] [place] [address], [place] [address] 2013 [facility] [address] [id number] [address] [place] [address] [address] Dec, [facility] [address] [id number] [address] [place] [address], [place] [address] Nov, [facility] [address] [id number] [address] [place] [address], [place] [address] Oct, [facility] [address] [id number] [address] [place] [address], [place] [address] Oct, [facility] [address] [id number] [address] [place] [address], [place] [address] Sep, [facility] [address] [id number] [address] [place] [address], [place] [address] Sep, [facility] [address] [id number] [address] [place] [address], [place] [address] Sep, [facility] [address] [id number] [address] [place] [address], [place] [address] Sep, [facility] [address] [id number] [address] [place] [address], [place] [address] Sep, [facility] [address] [id number] [address] [place] [address], [place] [address] Sep, [facility] [address] [id number] [address] [place] [address], [place] [address] Sep, [facility] [address] [id number] [address] [place] [address], [place] [address] Sep, [facility] [address] [id number] [address] [place] [address], [place] [address] Jul, [facility] [address] [id number] [address] [place] [address], [place] [address] Jun, [facility] [address] [id number] [address] [place] [address], [place] [address] Jun, [facility] [address] [id number] [address] [place] [address], [place] [address] Jun, [facility] [address] [id number] [address] [place] [address], [place] [address] Jun, [facility] [address] [id number] [address] [place] [address], [place] [address] May, [facility] [address] [id number] [address] [place] [address], [place] [address] Apr, [facility] [address] [id number] [address] [place] [address], [place] [address] Jan, [facility] [address] [id number] [address] [place] [address], [place] [address] Dec, [facility] [address] [id number] [address] [place] [address], [place] [address] Dec, [facility] [address] [id number] [address] [place] [address], [place] [address] Nov, [facility] [address] [id number] [address] [place] [address], [place] [address] Oct, [facility] [address] [id number] [address] [place] [address], [place] [address] Oct, [facility] [address] [id number] [address] [place] [address], [place] [address] 18 Aug, 2011 [facility] [address] [id number] [address] [place] [address], [place] [address] 18 Aug, 2011 [facility] [address] [id number] [address] [place] [address], [place] [address] 18 Aug, 2011 [facility] [address] [id number] [address] [place] [address], [place] [address] 14 Aug, 2011 [facility] [address] [id number] [address] [place] [address], [place] [address] 11 Aug, 2011 [facility] [address] [id number] [address] [place] [address], [place] [address] Aug, [facility] [address] [id number] [address] [place] [address], [place] [address] May, [facility] [address] [id number] [address] [place] [address], [place] [address] 13 Apr, 2011 [facility] [address] [id number] [address] [place] [address], [place] [address] 18 Feb, 2011 [facility] [address] [id number] [address] [place] [address], [place] [address] 28 Oct, 2010 [facility] [address] [id number] [address] [place] [address], [place] [address] 21 Oct, 2010 [facility] [address] [id number] [address] [place] [address], [place] [address] 07 Oct, 2010 [facility] [address] [id number] [address] [place] [address], [place] [address] 09 Sep, 2010 [facility] [address] [address] [id number] [address] [place] [address], [place] [id number] 26 Aug, 2010 [facility] [address] [id number] [address] [place] [address], [place] [id number] 16 Jul, 2010 [facility] [address] [id number] [address] [place] [address], [place] [id number] 13 May, 2010 [facility] [address] [id number] [address] [place] [id number] 19 Dec, 2009 [facility] [address] [id number] [address] [place] [id number] Nov, [facility] [address] [id number] [address] [place] [id number] 14 Oct, 2009 [facility] [address] [id number] [address] [place] [address], [place] [id number] 27 Sep, 2009 [facility] [address] [id number] [address] [place] [id number] 05 Sep, 2009 [facility] [address] [id number] [address] [place] [id number] 14 Jul, 2009 [facility] [address] [id number] [address] [place] [phone] Jun, [facility] [address] [facility] [id number] [address] [address] May, IMMUNIZATIONS No Known Immunizations SOCIAL HISTORY Never Assessed REASON FOR VISIT PLAN OF CARE VITAL SIGNS Height 73 in 2014-07-28 Weight 216 lbs 2014-07-28 Temperature 98.8 degrees Fahrenheit 2014-07-28 Heart Rate 70 bpm 2014-07-28 Respiratory Rate 22 2014-07-28 Blood pressure systolic 102 mmHg 2014-07-28 Blood pressure diastolic 64 mmHg 2014-07-28 MEDICATIONS Unknown Medications RESULTS No Results PROCEDURES [...]
--- OUTSIDE RECORDS SUMMARY | 2020-06-11 20:51 | XMS REPORT ---
Author Author Jd ROBLEDO Organization [facility] Address [address] [place] [address] Care Team Providers Care Valuer Name Role Phone PAULA ROBLEDO Unavailable PROBLEMS Type Condition ICD9-CM Code RPC45-KT Code Onset Dates Condition S tatus SNOMED Code Problem Raynauds disease I73.00 Active 195 924600 Problem Venous insufficiency I87.2 Active 64185673 Problem Other chronic pain G89.29 Active 8 8052753 Problem Hypokalemia E87.6 Active 97999401 Problem Prediabetes R73.03 Active 11085459 2 Problem Low back pain M54.5 Active 161810 009 Problem Congenital deafness H90.5 Active 55863260 Problem Dysthymia F34.1 Active 66321420 Problem Neuropathy G62.9 Active 851350666 ALLERGIES No Information ENCOUNTERS Encounter Location Date Diagnosis [place] [address] [place] [id number] [address] [place] [address] March, [facility] [address] [id number] [address] [place] [address] Jan, Neuropathy G62.9 [facility] [address] [id number] [address] [place] [address] 14 Dec, [address] [facility] [address] [facility] [id number] [address] [place] [address] Nov, Raynauds disease I73.00 ; Ve nous insufficiency I87.2 ; Prediabetes R73.[address] [facility] [address] [facility] [id number] [address] [place] [address] Jun, Congenital deafness H90.5 [facility] [address] [facility] [id number] [address] [place] [address] Jun, Other chronic pain G89.29 [facility] [address] [id number] [address] [place] [address] Jun, Acute kidney injury N17.9 [facility] [address] [facility] [id number] [address] [place] [address] Jan, Abscess of left knee L02.416 [facility] [address] [id number] [address] [place] [address] Jan, Prediabetes R73.03 ; Raynaud s disease I73.00 and Venous insufficiency I87.2 [place] [address] [address] Oct, Neuropathy G62.9 ; Low back pain M54.5 and URI (upper respiratory infection) J06.9 [place] [id number] [place] [address] Jul, Raynauds disease I73.[address] [facility] [address] [address] [id number] [address] [place] [address] May, Medicare annual wellness vis it, initial Z00.00 ; Dysthymia F34.1 ; Raynauds disease I73.00 ; Venous insufficiency I87.2 ; Congenital deafness H90.[address] [facility] [address] [place] [address] Apr, [place] [address] [place] [id number] [address] [place] [address] Apr, Prediabetes R73.03 ; Raynaud s disease I73.00 ; Venous insufficiency I87.2 ; Neuropathy G62.9 and Dysthymia F34.1 [place] [address] [place] [id number] [address] [place] [address] March, [place] [address] [address] Sep, Hyperglycemia R73.9 [facility] [id number] [place] [address] Sep, Hyperglycemia R73.9 [facility] [address] [place] [id number] [place] [address] Sep, Raynauds disease I73.00 ; Ve nous insufficiency I87.2 and Encounter for immunization Z23 [facility] [address] [address] Jun, [facility] [address] [address] May, [place] [address] [address] May, Other chronic pain G89.29 [place] [address] [address] May, Raynauds disease I73.00 ; Ve nous insufficiency I87.2 and Low back pain M54.5 [place] [address] [address] Dec, Raynauds disease I73.00 ; Ve nous insufficiency I87.2 ; Low back pain M54.5 and Other chronic pain G89.29 [place] [address] [address] Nov, [facility] [address] [address] Nov, Muscle spasm M62.838 [facility] [address] [id number] [place] [address] Nov, [facility] [address] [address] Oct, Folliculitis L73.9 and Venou s insufficiency I87.2 [facility] [address] [place] [address] [id number] [place] [address] Sep, Dermatitis L30.9 and Raynaud s disease I73.00 [facility] [address] [facility] [id number] [address] [place] [address] Sep, Rash and nonspecific skin er uption R21 [facility] [address] [facility] [id number] [address] [place] [address] Aug, Skin infection L08.9 [facility] [address] [facility] [id number] [address] [place] [address] May, Infected smith L08.9 [facility] [address] [facility] [id number] [address] [place] [address] May, Skin infection L08.9 [facility] [address] [facility] [id number] [address] [place] [address] Dec, [facility] [address] [facility] [id number] [address] [place] [address] Nov, [facility] [address] [facility] [id number] [address] [place] [address] Nov, [facility] [address] [facility] [id number] [address] [place] [address] Nov, Raynauds disease I73.00 [facility] [address] [facility] [id number] [address] [place] [address] Nov, Raynauds disease I73.00 ; Le g cramps R25.2 ; Venous insufficiency I87.2 and Routine adult health maintenance Z00.00 [facility] [address] [facility] [id number] [address] [place] [address] Jul, Infected sebaceous cyst 706. 2 [facility] [address] [facility] [id number] [address] [place] [address] Jun, [facility] [address] [facility] [id number] [address] [place] [address] Jun, [facility] [address] [id number] [address] [place] [address] Jun, Venous insufficiency 459.81 and Raynauds disease 443.0 [facility] [address] [id number] [address] [place] [address] Feb, [facility] [address] [id number] [address] [place] [address] Feb, [facility] [address] [id number] [address] [place] [address] Jan, [facility] [address] [id number] [address] [place] [address], [place] [address] Jan, [facility] [address] [id number] [address] [place] [address] Dec, [facility] [address] [id number] [address] [place] [address] Dec, [facility] [address] [id number] [address] [place] [address], [place] [address] Dec, [facility] [address] [id number] [address] [place] [address] Dec, [facility] [address] [id number] [address] [place] [address] Nov, [facility] [address] [id number] [address] [place] [address] Nov, [facility] [address] [id number] [address] [place] [address] Oct, [facility] [address] [id number] [address] [place] [address] Oct, [facility] [address] [id number] [address] [place] [address] Aug, [facility] [address] [id number] [address] [place] [address] Aug, [facility] [address] [id number] [facility] [place] [address] Aug, [facility] [address] [id number] [facility] [place] [address] Jul, [facility] [address] [id number] [facility] [place] [address] Jul, [facility] [address] [id number] [facility] [place] [address] Jul, [facility] [address] [id number] [facility] [place] [address] Jul, [facility] [address] [id number] [address] [place] [address], [place] [address] Jun, [facility] [address] [id number] [address] [place] [address], [place] [address] Jun, [facility] [address] [id number] [address] [place] [address], [place] [address] Jun, [facility] [address] [id number] [address] [place] [address], [place] [address] Jun, [facility] [address] [id number] [address] [place] [address], [place] [address] May, [facility] [address] [id number] [address] [place] [address], [place] [address] May, [facility] [address] [id number] [address] [place] [address], [place] [address] May, [facility] [address] [id number] [address] [place] [address], [place] [address] May, [facility] [address] [id number] [address] [place] [address], [place] [address] May, [facility] [address] [id number] [address] [place] [address], [place] [address] May, [facility] [address] [id number] [address] [place] [address], [place] [address] May, [facility] [address] [id number] [address] [place] [address], [place] [address] Apr, [facility] [address] [id number] [address] [place] [address], [place] [address] Apr, [facility] [address] [id number] [address] [place] [address], [place] [address] Apr, [facility] [address] [id number] [address] [place] [address], [place] [address] Apr, [facility] [address] [id number] [address] [place] [address], [place] [address] March, [facility] [address] [id number] [address] [place] [address], [place] [address] March, [facility] [address] [id number] [address] [place] [address], [place] [address] March, [facility] [address] [id number] [address] [place] [address], [place] [address] March, [facility] [address] [id number] [address] [place] [address], [place] [address] March, [facility] [address] [id number] [address] [place] [address], [place] [address] March, [facility] [address] [id number] [address] [place] [address], [place] [address] March, [facility] [address] [id number] [address] [place] [address], [place] [address] Feb, [facility] [address] [id number] [address] [place] [address], [place] [address] Feb, [facility] [address] [id number] Feb, [facility] [address] [id number] [address] [place] [address], [place] [address] Feb, [facility] [address] [id number] [address] [place] [address], [place] [address] Feb, [facility] [address] [id number] [facility] [place] [address] Feb, [facility] [address] [id number] [facility] [place] [address] Jan, [facility] [address] [id number] [facility] [place] [address] Jan, [facility] [address] [id number] [address] [place] [address], [place] [address] Jan, [facility] [address] [id number] [facility] [place] [address] Jan, [facility] [address] [id number] [address] [place] [address], [place] [address] Jan, [facility] [address] [id number] [address] [place] [address], [place] [address] Jan, [facility] [address] [id number] [address] [place] [address], [place] [address] Jan, [facility] [address] [id number] [address] [place] [address], [place] [address] Jan, [facility] [address] [id number] [address] [place] [address], [place] [address] Jan, [facility] [address] [id number] [address] [place] [address], [place] [address] Jan, [facility] [address] [id number] [address] [place] [address], [place] [address] Jan, [facility] [address] [id number] [address] [place] [address], [place] [address] Jan, [facility] [address] [id number] [address] [place] [address], [place] [address] Jan, [facility] [address] [id number] [address] [place] [address], [place] [address] Jan, [facility] [address] [id number] [address] [place] [address], [place] [address] 10 Jan, 2014 [facility] [address] [id number] [address] [place] [address], [place] [address] 10 Jan, 2014 [facility] [address] [id number] [address] [place] [address], [place] [address] Jan, [facility] [address] [id number] [address] [place] [address], [place] [address] Jan, [facility] [address] [id number] [address] [place] [address], [place] [address] Dec, [facility] [address] [id number] [address] [place] [address], [place] [address] Dec, [facility] [address] [id number] [address] [place] [address], [place] [address] Dec, [facility] [address] [id number] [address] [place] [address], [place] [address] 17 Dec, 2013 [facility] [address] [id number] [address] [place] [address], [place] [address] 14 Dec, 2013 [facility] [address] [id number] [address] [place] [address], [place] [address] 07 Dec, 2013 [facility] [address] [id number] [address] [place] [address], [place] [address] 07 Dec, 2013 [facility] [address] [id number] [address] [place] [address], [place] [address] 06 Dec, 2013 [facility] [address] [id number] [address] [place] [address], [place] [address] 04 Dec, 2013 [facility] [address] [id number] [address] [place] [address], [place] [address] 04 Dec, 2013 [facility] [address] [id number] [address] [place] [address], [place] [address] 04 Dec, 2013 [facility] [address] [id number] [address] [place] [address] Dec, [facility] [address] [id number] [address] [place] [address], [place] [address] Nov, [facility] [address] [id number] [address] [place] [address] Nov, [facility] [address] [id number] [address] [place] [address], [place] [address] Nov, [facility] [address] [id number] [address] [place] [address], [place] [address] Nov, [facility] [address] [id number] [address] [place] [address], [place] [address] Nov, [facility] [address] [id number] [address] [place] [address], [place] [address] Nov, [facility] [address] [id number] [address] [place] [address] Nov, [facility] [address] [id number] [address] [place] [address], [place] [address] Oct, [facility] [address] [id number] [address] [place] [address] Oct, [facility] [address] [id number] [address] [place] [address] Sep, [facility] [address] [id number] [address] [place] [address], [place] [address] Sep, [facility] [address] [id number] [address] [place] [address] Sep, [facility] [address] [id number] [address] [place] [address] Sep, [facility] [address] [id number] [address] [place] [address] Aug, [facility] [address] [id number] [address] [place] [address] Aug, [facility] [address] [id number] [address] [place] [address], [place] [address] Aug, [facility] [address] [id number] [address] [place] [address], [place] [address] Jul, [facility] [address] [id number] [address] [place] [address], [place] [address] Jul, [facility] [address] [id number] [address] [place] [address], [place] [address] Jun, [facility] [address] [id number] [address] [place] [address], [place] [address] Jun, [facility] [address] [id number] [address] [place] [address], [place] [address] Jun, [facility] [address] [id number] [address] [place] [address], [place] [address] May, [facility] [address] [id number] [address] [place] [address], [place] [address] May, [facility] [address] [id number] [address] [place] [address], [place] [address] May, [facility] [address] [id number] [address] [place] [address], [place] [address] Apr, [facility] [address] [id number] [address] [place] [address], [place] [address] Apr, [facility] [address] [id number] [address] [place] [address], [place] [id number] March, [facility] [address] [id number] [address] [place] [address], [place] [id number] Feb, [facility] [address] [id number] [address] [place] [address], [place] [id number] Jan, [facility] [address] [id number] [address] [place] [address], [place] [id number] 2013 [facility] [address] [id number] [address] [place] [address] [address] Dec, [facility] [address] [id number] [address] [place] [address], [place] [id number] Nov, [facility] [address] [id number] [address] [place] [address], [place] [id number] Oct, [facility] [address] [id number] [address] [place] [address], [place] [id number] Oct, [facility] [address] [id number] [address] [place] [address], [place] [id number] Sep, [facility] [address] [id number] [address] [place] [address], [place] [id number] Sep, [facility] [address] [id number] [address] [place] [address], [place] [id number] Sep, [facility] [address] [id number] [address] [place] [address], [place] [address] Sep, [facility] [address] [id number] [address] [place] [address], [place] [id number] Sep, [facility] [address] [id number] [address] [place] [address], [place] [address] Sep, [facility] [address] [id number] [address] [place] [address], [place] [address] Sep, [facility] [address] [id number] [address] [place] [address], [place] [id number] Sep, [facility] [address] [id number] [address] [place] [address], [place] [id number] Jul, [facility] [address] [id number] [address] [place] [address], [place] [id number] Jun, [facility] [address] [id number] [address] [place] [address], [place] [id number] Jun, [facility] [address] [id number] [address] [place] [address], [place] [id number] Jun, [facility] [address] [id number] [address] [place] [address], [place] [id number] Jun, [facility] [address] [id number] [address] [place] [address], [place] [id number] May, [facility] [address] [id number] [address] [place] [address], [place] [id number] Apr, [facility] [address] [id number] [address] [place] [address], [place] [id number] Jan, [facility] [address] [id number] [address] [place] [address], [place] [id number] Dec, [facility] [address] [id number] [address] [place] [address], [place] [id number] Dec, [facility] [address] [id number] [address] [place] [address], [place] [id number] Nov, [facility] [address] [id number] [address] [place] [address], [place] [address] Oct, [facility] [address] [id number] [address] [place] [address], [place] [id number] Oct, [facility] [address] [id number] [address] [place] [address], [place] [id number] 18 Aug, 2011 [facility] [address] [id number] [address] [place] [address], [place] [id number] 18 Aug, 2011 [facility] [address] [id number] [address] [place] [address], [place] [id number] 18 Aug, 2011 [facility] [address] [id number] [address] [place] [address], [place] [id number] 14 Aug, 2011 [facility] [address] [id number] [address] [place] [address], [place] [id number] 11 Aug, 2011 [facility] [address] [id number] [address] [place] [address], [place] [id number] Aug, [facility] [address] [id number] [address] [place] [address], [place] [id number] May, [facility] [address] [id number] [address] [place] [address], [place] [id number] 13 Apr, 2011 [facility] [address] [id number] [address] [place] [address], [place] [id number] 18 Feb, 2011 [facility] [address] [id number] [address] [place] [address], [place] [id number] 28 Oct, 2010 [facility] [address] [id number] [address] [place] [address], [place] [id number] 21 Oct, 2010 [facility] [address] [id number] [address] [place] [address], [place] [id number] 07 Oct, 2010 [facility] [address] [id number] [address] [place] [address], [place] [id number] 09 Sep, 2010 [facility] [address] [id number] [address] [place] [address], [place] [id number] 26 Aug, 2010 [facility] [address] [id number] [address] [place] [address], [place] [id number] 16 Jul, 2010 [facility] [address] [id number] [address] [place] [address], [place] [id number] 13 May, 2010 [facility] [address] [id number] [address] [place] [id number] 19 Dec, 2009 [facility] [address] [id number] [address] [place] [id number] Nov, [facility] [address] [id number] [address] [place] [id number] 14 Oct, 2009 [facility] [address] [id number] [address] [place] [address], [place] [id number] 27 Sep, 2009 [facility] [address] [id number] [address] [place] [id number] 05 Sep, 2009 [facility] [address] [id number] [address] [place] [id number] 14 Jul, 2009 [facility] [address] [id number] [address] [place] [id number] Jun, [facility] [address] [facility] [id number] [address] [address] May, IMMUNIZATIONS No Known Immunizations SOCIAL HISTORY Never Assessed REASON FOR VISIT PLAN OF CARE VITAL SIGNS Height 73 in 2012-05-18 Weight 231.8 lbs 2012-05-18 Temperature 98.8 degrees Fahrenheit 2012-05-18 Heart Rate 96 bpm 2012-05-18 Respiratory Rate 24 2012-05-18 Blood pressure systolic 96 mmHg 2012-05-18 Blood pressure diastolic 68 mmHg 2012-05-18 MEDICATIONS Unknown Medications RESULTS No Results PROCEDURES Procedure Date Ordered Result Body Site COMPREHEN METABOLIC PANEL May 18, 2012 VENIPUNCT, ROUTINE* May 18, 2012 INSTRUCTIONS MEDICATIONS ADMINISTERED No Known Medications MEDICAL [...]
--- OUTSIDE RECORDS SUMMARY | 2020-06-11 20:51 | XMS REPORT ---
Author Author Jd ROBLEDO Organization [facility] Address [address] [place] [address] Care Team Providers Care Gifts Officer Name Role Phone PAULA ROBLEDO Unavailable PROBLEMS Type Condition ICD9-CM Code BSZ73-UM Code Onset Dates Condition S tatus SNOMED Code Problem Raynauds disease I73.00 Active 195 072170 Problem Venous insufficiency I87.2 Active 88865426 Problem Other chronic pain G89.29 Active 8 0671528 Problem Hypokalemia E87.6 Active 86168462 Problem Prediabetes R73.03 Active 97262331 2 Problem Low back pain M54.5 Active 263327 009 Problem Congenital deafness H90.5 Active 69299955 Problem Dysthymia F34.1 Active 23270869 Problem Neuropathy G62.9 Active [id number] ALLERGIES No Information ENCOUNTERS Encounter Location Date Diagnosis [place] [address] [place] [id number] [address] [place] [id number] Feb, [facility] [address] [id number] [address] [place] [phone] Jan, Neuropathy G62.9 [facility] [address] [id number] [address] [place] [id number] 14 Dec, 2019 Neuropathy G62.9 [facility] [address] [facility] [id number] [address] [place] [id number] Nov, Raynauds disease I73.00 ; Ve nous insufficiency I87.2 ; Prediabetes R73.03 and Neuropathy G62.9 [facility] [address] [facility] [id number] [address] [place] [phone] Jun, Congenital deafness H90.5 [facility] [address] [facility] [id number] [address] [place] [id number] Jun, Other chronic pain G89.29 [facility] [address] [place] [place] [id number] [address] [place] [phone] Jun, Acute kidney injury N17.9 [facility] [address] [facility] [id number] [address] [place] [phone] Jan, Abscess of left knee L02.416 [facility] [address] [id number] [address] [place] [phone] Jan, Prediabetes R73.03 ; Raynaud s disease I73.00 and Venous insufficiency I87.2 [place] [address] [address] Oct, Neuropathy G62.9 ; Low back pain M54.5 and URI (upper respiratory infection) J06.9 [place] [address] [place] [id number] Jul, Raynauds disease I73.00 and Hypokalemia E87.6 [facility] [address] [id number] [address] [place] [phone] May, Medicare annual wellness vis it, initial Z00.00 ; Dysthymia F34.1 ; Raynauds disease I73.00 ; Venous insufficiency I87.2 ; Congenital deafness H90.5 and Neuropathy G62.9 [facility] [address] [place] [phone] Apr, [place] [address] [place] [id number] [address] [place] [phone] Apr, Prediabetes R73.03 ; Raynaud s disease I73.00 ; Venous insufficiency I87.2 ; Neuropathy G62.9 and Dysthymia F34.1 [place] [address] [place] [id number] [address] [place] [phone] March, [place] [address] [address] Sep, Hyperglycemia R73.9 [facility] [address] [id number] [place] [phone] Sep, Hyperglycemia R73.9 [facility] [address] [id number] [place] [address] Sep, Raynauds disease I73.00 ; Ve nous insufficiency I87.2 and Encounter for immunization Z23 [facility] [address] [address] Jun, [facility] [address] [address] May, [place] [address] [address] May, Other chronic pain G89.29 [place] [address] [address] May, Raynauds disease I73.00 ; Ve nous insufficiency I87.2 and Low back pain M54.5 [place] [address] [address] Dec, Raynauds disease I73.00 ; Ve nous insufficiency I87.2 ; Low back pain M54.5 and Other chronic pain G89.29 [place] [address] [address] Nov, [facility] [address] [address] Nov, Muscle spasm M62.838 [facility] [address] [place] [place] [id number] [place] [address] Nov, [facility] [address] [address] Oct, Folliculitis L73.9 and Venou s insufficiency I87.2 [facility] [address] [id number] [place] [phone] Sep, Dermatitis L30.9 and Raynaud s disease I73.00 [facility] [address] [facility] [id number] [address] [place] [phone] Sep, Rash and nonspecific skin er uption R21 [facility] [address] [facility] [id number] [address] [place] [phone] Aug, Skin infection L08.9 [facility] [address] [facility] [id number] [address] [place] [phone] May, Infected smith L08.9 [facility] [address] [facility] [id number] [address] [place] [phone] May, Skin infection L08.9 [facility] [address] [facility] [id number] [address] [place] [id number] Dec, [facility] [address] [facility] [id number] [address] [place] [phone] Nov, [facility] [address] [facility] [id number] [address] [place] [phone] Nov, [facility] [address] [facility] [id number] [address] [place] [address] Nov, Raynauds disease I73.00 [facility] [address] [facility] [id number] [address] [place] [id number] Nov, Raynauds disease I73.00 ; Le g cramps R25.2 ; Venous insufficiency I87.2 and Routine adult health maintenance Z00.00 [facility] [address] [facility] [id number] [address] [place] [phone] Jul, Infected sebaceous cyst 706. 2 [facility] [address] [facility] [id number] [address] [place] [id number] Jun, [facility] [address] [facility] [id number] [address] [place] [phone] Jun, [facility] [address] [id number] [address] [place] [phone] Jun, Venous insufficiency 459.81 and Raynauds disease 443.0 [facility] [address] [id number] [address] [place] [phone] Feb, [facility] [address] [id number] [address] [place] [phone] Feb, [facility] [address] [id number] [address] [place] [phone] Jan, [facility] [address] [id number] [address] [place] [address], [place] [address] Jan, [facility] [address] [id number] [address] [place] [phone] Dec, [facility] [address] [id number] [address] [place] [phone] Dec, [facility] [address] [id number] [address] [place] [address], [place] [address] Dec, [facility] [address] [id number] [address] [place] [phone] Dec, [facility] [address] [id number] [address] [place] [phone] Nov, [facility] [address] [id number] [address] [place] [phone] Nov, [facility] [address] [id number] [address] [place] [phone] Oct, [facility] [address] [id number] [address] [place] [phone] Oct, [facility] [address] [id number] [address] [place] [phone] Aug, [facility] [address] [id number] [address] [place] [phone] Aug, [facility] [address] [id number] [facility] [address] Aug, [facility] [address] [id number] [facility] [address] Jul, [facility] [address] [id number] [facility] [address] Jul, [facility] [address] [id number] [facility] [address] Jul, [facility] [address] [id number] [facility] [address] Jul, [facility] [address] [id number] [address] [place] [address], [place] [address] Jun, [facility] [address] [id number] [address] [place] [address], [place] [address] Jun, [facility] [address] [id number] [address] [place] [address], [place] [address] Jun, [facility] [address] [id number] [address] [place] [address], [place] [address] Jun, [facility] [address] [id number] [address] [place] [address], [place] [address] May, [facility] [address] [id number] [address] [place] [address], [place] [address] May, [facility] [address] [id number] [address] [place] [address], [place] [address] May, [facility] [address] [id number] [address] [place] [address], [place] [address] May, [facility] [address] [id number] [address] [place] [address], [place] [address] May, [facility] [address] [id number] [address] [place] [address], [place] [address] May, [facility] [address] [id number] [address] [place] [address], [place] [address] May, [facility] [address] [id number] [address] [place] [address], [place] [address] Apr, [facility] [address] [id number] [address] [place] [address], [place] [address] Apr, [facility] [address] [id number] [address] [place] [address], [place] [address] Apr, [facility] [address] [id number] [address] [place] [address], [place] [address] Apr, [facility] [address] [id number] [address] [place] [address], [place] [address] March, [facility] [address] [id number] [address] [place] [address], [place] [address] March, [facility] [address] [id number] [address] [place] [address], [place] [address] March, [facility] [address] [id number] [address] [place] [address], [place] [address] March, [facility] [address] [id number] [address] [place] [address], [place] [address] March, [facility] [address] [id number] [address] [place] [address], [place] [address] March, [facility] [address] [id number] [address] [place] [address], [place] [address] March, [facility] [address] [id number] [address] [place] [address], [place] [address] Feb, [facility] [address] [id number] [address] [place] [address], [place] [address] Feb, [facility] [address] [place] [id number] Feb, [facility] [address] [id number] [address] [place] [address], [place] [id number] Feb, [facility] [address] [id number] [address] [place] [address], [place] [address] Feb, [facility] [address] [id number] [facility] [address] Feb, [facility] [address] [id number] [facility] [address] Jan, [facility] [address] [id number] [facility] [address] Jan, [facility] [address] [id number] [address] [place] [address], [place] [address] Jan, [facility] [address] [id number] [facility] [address] Jan, [facility] [address] [id number] [address] [place] [address], [place] [address] Jan, [facility] [address] [id number] [address] [place] [address], [place] [address] Jan, [facility] [address] [id number] [address] [place] [address], [place] [address] Jan, [facility] [address] [id number] [address] [place] [address], [place] [address] Jan, [facility] [address] [id number] [address] [place] [address], [place] [address] Jan, [facility] [address] [id number] [address] [place] [address], [place] [address] Jan, [facility] [address] [id number] [address] [place] [address], [place] [address] Jan, [facility] [address] [id number] [address] [place] [address], [place] [address] Jan, [facility] [address] [id number] [address] [place] [address], [place] [address] Jan, [facility] [address] [id number] [address] [place] [address], [place] [address] Jan, [facility] [address] [id number] [address] [place] [address], [place] [address] 10 Jan, 2014 [facility] [address] [id number] [address] [place] [address], [place] [address] 10 Jan, 2014 [facility] [address] [id number] [address] [place] [address], [place] [address] Jan, [facility] [address] [id number] [address] [place] [address], [place] [address] Jan, [facility] [address] [id number] [address] [place] [address], [place] [address] Dec, [facility] [address] [id number] [address] [place] [address], [place] [address] Dec, [facility] [address] [id number] [address] [place] [address], [place] [address] Dec, [facility] [address] [id number] [address] [place] [address], [place] [address] 17 Dec, 2013 [facility] [address] [id number] [address] [place] [address], [place] [address] 14 Dec, 2013 [facility] [address] [id number] [address] [place] [address], [place] [address] 07 Dec, 2013 [facility] [address] [id number] [address] [place] [address], [place] [address] 07 Dec, 2013 [facility] [address] [id number] [address] [place] [address], [place] [address] 06 Dec, 2013 [facility] [address] [id number] [address] [place] [address], [place] [address] 04 Dec, 2013 [facility] [address] [id number] [address] [place] [address], [place] [address] 04 Dec, 2013 [facility] [address] [id number] [address] [place] [address], [place] [address] 04 Dec, 2013 [facility] [address] [id number] [address] [place] [id number] Dec, [facility] [address] [id number] [address] [place] [address], [place] [address] Nov, [facility] [address] [id number] [address] [place] [id number] Nov, [facility] [address] [id number] [address] [place] [address], [place] [address] Nov, [facility] [address] [id number] [address] [place] [address], [place] [address] Nov, [facility] [address] [id number] [address] [place] [address], [place] [address] Nov, [facility] [address] [id number] [address] [place] [address], [place] [address] Nov, [facility] [address] [id number] [address] [place] [id number] Nov, [facility] [address] [id number] [address] [place] [address], [place] [address] Oct, [facility] [address] [id number] [address] [place] [id number] Oct, [facility] [address] [id number] [address] [place] [id number] Sep, [facility] [address] [id number] [address] [place] [address], [place] [address] Sep, [facility] [address] [id number] [address] [place] [id number] Sep, [facility] [address] [id number] [address] [place] [id number] Sep, [facility] [address] [id number] [address] [place] [id number] Aug, [facility] [address] [id number] [address] [place] [id number] Aug, [facility] [address] [id number] [address] [place] [address], [place] [id number] Aug, [facility] [address] [id number] [address] [place] [address], [place] [address] Jul, [facility] [address] [id number] [address] [place] [address], [place] [address] Jul, [facility] [address] [id number] [address] [place] [address], [place] [address] Jun, [facility] [address] [id number] [address] [place] [address], [place] [address] Jun, [facility] [address] [id number] [address] [place] [address], [place] [address] Jun, [facility] [address] [id number] [address] [place] [address], [place] [address] May, [facility] [address] [id number] [address] [place] [address], [place] [address] May, [facility] [address] [id number] [address] [place] [address], [place] [address] May, [facility] [address] [id number] [address] [place] [address], [place] [address] Apr, [facility] [address] [id number] [address] [place] [address], [place] [address] Apr, [facility] [address] [id number] [address] [place] [address], [place] [address] March, [facility] [address] [id number] [address] [place] [address], [place] [address] Feb, [facility] [address] [id number] [address] [place] [address], [place] [address] Jan, [facility] [address] [id number] [address] [place] [address], [place] [address] 2013 [facility] [address] [id number] [address] [place] [address] [address] Dec, [facility] [address] [id number] [address] [place] [address], [place] [id number] Nov, [facility] [address] [id number] [address] [place] [address], [place] [address] Oct, [facility] [address] [id number] [address] [place] [address], [place] [id number] Oct, [facility] [address] [id number] [address] [place] [address], [place] [id number] Sep, [facility] [address] [id number] [address] [place] [address], [place] [id number] Sep, [facility] [address] [id number] [address] [place] [address], [place] [address] Sep, [facility] [address] [id number] [address] [place] [address], [place] [id number] Sep, [facility] [address] [id number] [address] [place] [address], [place] [id number] Sep, [facility] [address] [id number] [address] [place] [address], [place] [id number] Sep, [facility] [address] [id number] [address] [place] [address], [place] [id number] Sep, [facility] [address] [id number] [address] [place] [address], [place] [id number] Sep, [facility] [address] [id number] [address] [place] [address], [place] [id number] Jul, [facility] [address] [id number] [address] [place] [address], [place] [id number] Jun, [facility] [address] [id number] [address] [place] [address], [place] [address] Jun, [facility] [address] [id number] [address] [place] [address], [place] [id number] Jun, [facility] [address] [id number] [address] [place] [address], [place] [id number] Jun, [facility] [address] [id number] [address] [place] [address], [place] [id number] May, [facility] [address] [id number] [address] [place] [address], [place] [address] Apr, [facility] [address] [id number] [address] [place] [address], [place] [id number] Jan, [facility] [address] [id number] [address] [place] [address], [place] [id number] Dec, [facility] [address] [id number] [address] [place] [address], [place] [id number] Dec, [facility] [address] [id number] [address] [place] [address], [place] [address] Nov, [facility] [address] [id number] [address] [place] [address], [place] [id number] Oct, [facility] [address] [id number] [address] [place] [address], [place] [address] Oct, [facility] [address] [id number] [address] [place] [address], [place] [id number] 18 Aug, 2011 [facility] [address] [id number] [address] [place] [address], [place] [id number] 18 Aug, 2011 [facility] [address] [id number] [address] [place] [address], [place] [id number] 18 Aug, 2011 [facility] [address] [id number] [address] [place] [address], [place] [id number] 14 Aug, 2011 [facility] [address] [id number] [address] [place] [address], [place] [id number] 11 Aug, 2011 [facility] [address] [id number] [address] [place] [address], [place] [id number] Aug, [facility] [address] [id number] [address] [place] [address], [place] [id number] May, [facility] [address] [id number] [address] [place] [address], [place] [id number] 13 Apr, 2011 [facility] [address] [id number] [address] [place] [address], [place] [id number] 18 Feb, 2011 [facility] [address] [id number] [address] [place] [address], [place] [id number] 28 Oct, 2010 [facility] [address] [id number] [address] [place] [address], [place] [id number] 21 Oct, 2010 [facility] [address] [id number] [address] [place] [address], [place] [id number] 07 Oct, 2010 [facility] [address] [id number] [address] [place] [address], [place] [id number] 09 Sep, 2010 [facility] [address] [id number] [address] [place] [address], [place] [id number] 26 Aug, 2010 [facility] [address] [id number] [address] [place] [address], [place] [id number] 16 Jul, 2010 [facility] [address] [id number] [address] [place] [address], [place] [address] 13 May, 2010 [facility] [address] [id number] [address] [place] [address] 19 Dec, 2009 [facility] [address] [id number] [address] [place] [address] Nov, [facility] [address] [id number] [address] [place] [address] 14 Oct, 2009 [facility] [address] [id number] [address] [place] [address], [place] [address] 27 Sep, 2009 [facility] [address] [id number] [address] [place] [address] 05 Sep, 2009 [facility] [address] [id number] [address] [place] [address] 14 Jul, 2009 [facility] [address] [id number] [address] [place] [address] Jun, [facility] [address] [facility] [id number] [place] [address] May, IMMUNIZATIONS No Known Immunizations SOCIAL HISTORY [...]
--- OUTSIDE RECORDS SUMMARY | 2020-06-11 20:52 | XMS REPORT ---
Author Author Jd ROBLEDO Organization [facility] Address [address] [place] [address] Care Team Providers Care Mat Sewer Name Role Phone PAULA ROBLEDO Unavailable PROBLEMS Type Condition ICD9-CM Code [id number] Code Onset Dates Condition S tatus SNOMED Code Problem Raynauds disease I73.00 Active 195 253901 Problem Venous insufficiency I87.2 Active 38623039 Problem Other chronic pain G89.29 Active 8 3706620 Problem Hypokalemia E87.6 Active 46089910 Problem Prediabetes R73.03 Active 56857478 2 Problem Low back pain M54.5 Active 290032 009 Problem Congenital deafness H90.5 Active 99624259 Problem Dysthymia F34.1 Active 76281864 Problem Neuropathy G62.9 Active [id number] ALLERGIES No Information ENCOUNTERS Encounter Location Date Diagnosis [place] [address] [address] Jan, Neuropathy G62.9 [place] [address] [address] 14 Dec, 2019 Neuropathy G62.9 [place] [address] [address] Nov, Raynauds disease I73.00 ; Venous insuffi ciency I87.2 ; Prediabetes R73.03 and Neuropathy G62.9 [place] [address] [address] Jun, Congenital deafness H90.5 [place] [address] [address] Jun, Other chronic pain G89.29 [place] [address] [address] Jun, Acute kidney injury N17.9 [facility] [address] [facility] [id number] [address] [place] [address] Jan, Abscess of left knee L02.416 [facility] [address] [address] Jan, Prediabetes R73.03 ; Raynauds disease I7 3.00 and Venous insufficiency I87.2 [place] [address] [address] Oct, Neuropathy G62.9 ; Low back pain M54.5 a nd URI (upper respiratory infection) J06.9 [place] [address] [address] Jul, Raynauds disease I73.00 and Hypokalemia E87.6 [place] [address] [address] May, Medicare annual wellness visit, initial Z00.00 ; Dysthymia F34.1 ; Raynauds disease I73.00 ; Venous insufficiency I87.2 ; Congenital deafness H90.5 and Neuropathy G62.9 [place] [address] [address] Apr, [place] [address] [address] Apr, Prediabetes R73.03 ; Raynauds disease I7 3.00 ; Venous insufficiency I87.2 ; Neuropathy G62.9 and Dysthymia F34.1 [place] [address] [address] March, [place] [address] [address] Sep, Hyperglycemia R73.9 [place] [address] [address] 07 Sep, 2017 Hyperglycemia R73.9 [place] [address] [address] Sep, Raynauds disease I73.00 ; Venous insuffi ciency I87.2 and Encounter for immunization Z23 [place] [address] [address] Jun, [place] [address] [address] May, [place] [address] [address] May, Other chronic pain G89.29 [place] [address] [address] May, Raynauds disease I73.00 ; Venous insuffi ciency I87.2 and Low back pain M54.5 [place] [address] [address] Dec, Raynauds disease I73.00 ; Venous insuffi ciency I87.2 ; Low back pain M54.5 and Other chronic pain G89.29 [place] [address] [address] Nov, [place] [address] [address] Nov, Muscle spasm M62.838 [facility] [address] [place] [address] Nov, [facility] [address] [address] 15 Oct, 2016 Folliculitis L73.9 and Venous insufficie ncy I87.2 [place] [address] [address] 17 Sep, 2016 Dermatitis L30.9 and Raynauds disease I7 3.00 [facility] [address] [place] [id number] [place] [address] 13 Sep, 2016 Rash and nonspecific skin er uption R21 [facility] [address] [address] Aug, Skin infection L08.9 [facility] [address] [address] May, Infected smith L08.9 [facility] [address] [address] May, Skin infection L08.9 [facility] [address] [address] Dec, [facility] [address] [address] Nov, [facility] [address] [address] Nov, [facility] [address] [address] Nov, Raynauds disease I73.00 [facility] [address] [address] Nov, Raynauds disease I73.00 ; Leg cramps R25 .2 ; Venous insufficiency I87.2 and Routine adult health maintenance Z00.00 [facility] [address] [address] Jul, Infected sebaceous cyst 706.2 [facility] [address] [address] Jun, [facility] [address] [address] Jun, [facility] [address] [address] Jun, Venous insufficiency 459.81 and Raynauds disease 443.0 [facility] [address] [address] Feb, [facility] [address] [address] Feb, [facility] [address] [id number] [place] [address] Jan, [facility] [address] [id number] [place] [address] Jan, [facility] [address] [id number] [place] [address] Dec, [facility] [address] [id number] [place] [address] Dec, [facility] [address] [id number] [place] [address] Dec, [facility] [address] [id number] [place] [address] Dec, [facility] [address] [id number] [place] [address] Nov, [facility] [address] [id number] [place] [address] Nov, [facility] [address] [id number] [place] [address] Oct, [facility] [address] [id number] [place] [address] Oct, [facility] [address] [id number] [place] [address] Aug, [facility] [address] [id number] [place] [address] Aug, [facility] [address] [id number] [place] [address] Aug, [facility] [address] [id number] [place] [address] Jul, [facility] [address] [id number] [place] [address] Jul, [facility] [address] [id number] [place] [address] Jul, [facility] [address] [facility] [id number] [facility] [place] [address] Jul, [facility] [address] [facility] [id number] [place] [address] Jun, [facility] [address] [facility] [id number] [place] [address] Jun, [facility] [address] [id number] [place] [address] Jun, [facility] [address] [facility] [id number] [place] [address] Jun, [facility] [address] [facility] [id number] [place] [address] May, [facility] [address] [id number] [place] [address] May, [facility] [address] [id number] [place] [address] May, [facility] [address] [id number] [place] [address] May, [facility] [address] [facility] [id number] [place] [address] May, [facility] [address] [id number] [place] [address] May, [facility] [address] [id number] [place] [address] May, [facility] [address] [id number] [place] [address] Apr, [facility] [address] [facility] [id number] [place] [address] Apr, [facility] [address] [id number] [place] [address] Apr, [facility] [address] [id number] [place] [address] Apr, [facility] [address] [id number] [place] [address] March, [facility] [address] [id number] [place] [address] March, [facility] [address] [id number] [place] [address] March, [facility] [address] [id number] [place] [address] March, [facility] [address] [id number] [place] [address] March, [facility] [address] [id number] [place] [address] March, [facility] [address] [id number] [place] [address] March, [facility] [address] [id number] [place] [address] Feb, [facility] [address] [id number] [place] [address] Feb, [address] [id number] Feb, [facility] [address] [id number] [place] [address] Feb, [facility] [address] [id number] [place] [address] Feb, [facility] [address] [id number] [place] [address] Feb, [facility] [address] [id number] [place] [address] Jan, [facility] [address] [id number] [place] [address] Jan, [facility] [address] [id number] [place] [address] Jan, [facility] [address] [id number] [place] [address] Jan, [facility] [address] [id number] [place] [address] Jan, [facility] [address] [facility] [id number] [place] [address] Jan, [facility] [address] [facility] [id number] [facility] [place] [address] Jan, [facility] [address] [facility] [id number] [place] [address] Jan, [facility] [address] [facility] [id number] [place] [address] Jan, [facility] [address] [facility] [id number] [place] [address] Jan, [facility] [address] [id number] [place] [address] Jan, [facility] [address] [id number] [place] [address] Jan, [facility] [address] [id number] [place] [address] Jan, [facility] [address] [facility] [id number] [place] [address] Jan, [facility] [address] [id number] [place] [address] Jan, [facility] [address] [id number] [place] [address] Jan, [facility] [address] [id number] [place] [address] Jan, [facility] [address] [facility] [id number] [place] [address] Jan, [facility] [address] [facility] [id number] [place] [address] Dec, [facility] [address] [facility] [id number] [place] [address] Dec, [facility] [address] [id number] [place] [address] Dec, [facility] [address] [id number] [place] [address] 17 Dec, 2013 [facility] [address] [id number] [place] [address] Dec, [facility] [address] [id number] [place] [address] Dec, [facility] [address] [id number] [place] [address] Dec, [facility] [address] [id number] [place] [address] Dec, [facility] [address] [id number] [place] [address] Dec, [facility] [address] [id number] [place] [address] Dec, [facility] [address] [id number] [place] [address] Dec, [facility] [address] [id number] [place] [address] Dec, [facility] [address] [id number] [place] [address] Nov, [facility] [address] [id number] [place] [address] Nov, [facility] [address] [id number] [place] [address] Nov, [facility] [address] [id number] [place] [address] Nov, [facility] [address] [id number] [place] [address] Nov, [facility] [address] [id number] [place] [address] Nov, [facility] [address] [id number] [place] [address] Nov, [facility] [address] [id number] [place] [address] Oct, [facility] [address] [facility] [id number] [place] [address] Oct, [facility] [address] [id number] [place] [address] Sep, [facility] [address] [id number] [place] [address] Sep, [facility] [address] [id number] [place] [address] Sep, [facility] [address] [facility] [id number] [place] [address] Sep, [facility] [address] [id number] [place] [address] Aug, [facility] [address] [id number] [place] [address] Aug, [facility] [address] [id number] [place] [address] Aug, [facility] [address] [id number] [place] [address] Jul, [facility] [address] [id number] [place] [address] Jul, [facility] [address] [id number] [place] [address] Jun, [facility] [address] [id number] [place] [address] Jun, [facility] [address] [id number] [place] [address] Jun, [facility] [address] [id number] [place] [address] May, [facility] [address] [id number] [place] [address] May, [facility] [address] [id number] [place] [address] May, [facility] [address] [id number] [place] [address] Apr, [facility] [address] [id number] [place] [address] Apr, [facility] [address] [id number] [place] [address] March, [facility] [address] [id number] [place] [address] Feb, [facility] [address] [id number] [place] [address] Jan, [facility] [address] [id number] [place] [address] Jan, [facility] [address] [id number] [place] [address] Dec, [facility] [address] [place] [id number] [place] [address] Nov, [facility] [address] [place] [id number] [place] [address] Oct, [facility] [address] [id number] [place] [address] Oct, [facility] [address] [id number] [place] [address] 30 Sep, 2012 [facility] [address] [place] [id number] [place] [address] Sep, [facility] [address] [id number] [place] [address] 29 Sep, 2012 [facility] [address] [id number] [place] [address] 28 Sep, 2012 [facility] [address] [place] [id number] [place] [address] 13 Sep, 2012 [facility] [address] [id number] [place] [address] Sep, [facility] [address] [place] [id number] [place] [address] Sep, [facility] [address] [id number] [place] [address] Sep, [facility] [address] [id number] [place] [address] Jul, [facility] [address] [id number] [place] [address] Jun, [facility] [address] [id number] [place] [address] Jun, [facility] [address] [id number] [place] [address] Jun, [facility] [address] [id number] [place] [address] Jun, [facility] [address] [id number] [place] [address] May, [facility] [address] [place] [address] [id number] [place] [address] Apr, [facility] [address] [id number] [place] [address] Jan, [facility] [address] [place] [id number] [place] [address] Dec, [facility] [address] [id number] [place] [address] Dec, [facility] [address] [id number] [place] [address] Nov, [facility] [address] [id number] [place] [address] Oct, [facility] [address] [id number] [place] [address] Oct, [facility] [id number] [place] [address] Aug, [facility] [address] [id number] [place] [address] Aug, [facility] [id number] [place] [address] 18 Aug, 2011 [facility] [address] [id number] [place] [address] 14 Aug, 2011 [facility] [address] [id number] [place] [address] 11 Aug, 2011 [facility] [address] [id number] [place] [address] 11 Aug, 2011 [facility] [address] [id number] [place] [address] 19 May, 2011 [facility] [address] [id number] [place] [address] 13 Apr, 2011 [facility] [address] [id number] [place] [address] 18 Feb, 2011 [facility] [address] [id number] [place] [address] 28 Oct, 2010 [facility] [address] [id number] [place] [address] 21 Oct, 2010 [facility] [address] [id number] [place] [address] 07 Oct, 2010 [facility] [address] [id number] [place] [address] 09 Sep, 2010 [facility] [address] [id number] [place] [address] 26 Aug, 2010 [facility] [address] [id number] [place] [address] 16 Jul, 2010 [facility] [address] [id number] [place] [address] 13 May, 2010 [facility] [address] [id number] [place] [address] Dec, [facility] [address] [id number] [place] [address] Nov, [facility] [address] [id number] [place] [address] 14 Oct, 2009 [facility] [address] [id number] [place] [address] Sep, [facility] [address] [id number] [place] [address] Sep, [facility] [address] [id number] [place] [address] Jul, [facility] [address] [id number] [place] [address] Jun, [facility] [address] [id number] [place] [address] May, IMMUNIZATIONS No Known Immunizations SOCIAL HISTORY Never Assessed REASON FOR VISIT PLAN OF CARE VITAL SIGNS MEDICATIONS Unknown Medications RESULTS No Results PROCEDURES Procedure Date Ordered Result Body Site HEPATIC FUNCTION PANEL Jan 18, 2014 VENIPUNCT, ROUTINE* Jan 18, 2014 INSTRUCTIONS MEDICATIONS ADMINISTERED No Known Medications MEDICAL [...]
--- OUTSIDE RECORDS SUMMARY | 2020-06-11 20:52 | XMS REPORT ---
Author Author Jd ROBLEDO Organization [facility] Address [address] [place] [address] Care Team Providers Care Planning Advisor Name Role Phone PAULA ROBLEDO Unavailable PROBLEMS Type Condition ICD9-CM Code TIL79-MV Code Onset Dates Condition S tatus SNOMED Code Problem Raynauds disease I73.00 Active 195 261841 Problem Venous insufficiency I87.2 Active 60405151 Problem Other chronic pain G89.29 Active 8 6520345 Problem Hypokalemia E87.6 Active 85718297 Problem Prediabetes R73.03 Active 53668867 2 Problem Low back pain M54.5 Active 742206 009 Problem Congenital deafness H90.5 Active 66630135 Problem Dysthymia F34.1 Active 93499976 Problem Neuropathy G62.9 Active [id number] ALLERGIES No Information ENCOUNTERS Encounter Location Date Diagnosis [place] [address] [address] Jan, Neuropathy G62.9 [place] [address] [address] Dec, Neuropathy G62.9 [place] [address] [address] Nov, Raynauds disease I73.00 ; Venous insuffi ciency I87.2 ; Prediabetes R73.03 and Neuropathy G62.9 [place] [address] [address] Jun, Congenital deafness H90.5 [place] [address] [address] Jun, Other chronic pain G89.29 [place] [address] [address] Jun, Acute kidney injury N17.9 [facility] [address] [facility] [id number] [address] [place] [address] Jan, Abscess of left knee L02.416 [facility] [address] [address] Jan, Prediabetes R73.03 ; Raynauds disease I7 3.00 and Venous insufficiency I87.2 [place] [address] [address] Oct, Neuropathy G62.9 ; Low back pain M54.5 a nd URI (upper respiratory infection) J06.9 [place] [address] [address] Jul, Raynauds disease I73.00 and Hypokalemia E87.6 [place] [address] [address] May, Medicare annual wellness visit, initial Z00.00 ; Dysthymia F34.1 ; Raynauds disease I73.00 ; Venous insufficiency I87.2 ; Congenital deafness H90.5 and Neuropathy G62.9 [place] [address] [address] Apr, [place] [address] [address] Apr, Prediabetes R73.03 ; Raynauds disease I7 3.00 ; Venous insufficiency I87.2 ; Neuropathy G62.9 and Dysthymia F34.1 [place] [address] [address] March, [place] [address] [address] Sep, Hyperglycemia R73.9 [place] [address] [address] 07 Sep, 2017 Hyperglycemia R73.9 [place] [address] [address] Sep, Raynauds disease I73.00 ; Venous insuffi ciency I87.2 and Encounter for immunization Z23 [place] [address] [address] Jun, [place] [address] [address] May, [place] [address] [address] May, Other chronic pain G89.29 [place] [address] [address] May, Raynauds disease I73.00 ; Venous insuffi ciency I87.2 and Low back pain M54.5 [place] [address] [address] Dec, Raynauds disease I73.00 ; Venous insuffi ciency I87.2 ; Low back pain M54.5 and Other chronic pain G89.29 [place] [address] [address] Nov, [place] [address] [address] Nov, Muscle spasm M62.838 [facility] [address] [place] [address] Nov, [facility] [address] [address] 15 Oct, 2016 Folliculitis L73.9 and Venous insufficie ncy I87.2 [place] [address] [address] 17 Sep, 2016 Dermatitis L30.9 and Raynauds disease I7 3.00 [facility] [address] [place] [id number] [place] [address] 13 Sep, 2016 Rash and nonspecific skin er uption R21 [facility] [address] [address] Aug, Skin infection L08.9 [facility] [address] [address] May, Infected smith L08.9 [facility] [address] [address] May, Skin infection L08.9 [facility] [address] [address] Dec, [facility] [address] [address] Nov, [facility] [address] [address] Nov, [facility] [address] [address] Nov, Raynauds disease I73.00 [facility] [address] [address] Nov, Raynauds disease I73.00 ; Leg cramps R25 .2 ; Venous insufficiency I87.2 and Routine adult health maintenance Z00.00 [facility] [address] [address] Jul, Infected sebaceous cyst 706.2 [facility] [address] [address] Jun, [facility] [address] [address] Jun, [facility] [address] [address] Jun, Venous insufficiency 459.81 and Raynauds disease 443.0 [facility] [address] [address] Feb, [facility] [address] [address] Feb, [facility] [address] [id number] [place] [address] Jan, [facility] [address] [id number] [place] [address] Jan, [facility] [address] [id number] [place] [address] Dec, [facility] [address] [id number] [place] [address] Dec, [facility] [address] [id number] [place] [address] Dec, [facility] [address] [id number] [place] [address] Dec, [facility] [address] [id number] [place] [address] Nov, [facility] [address] [id number] [place] [address] Nov, [facility] [address] [id number] [place] [address] Oct, [facility] [address] [id number] [place] [address] Oct, [facility] [address] [id number] [place] [address] Aug, [facility] [address] [id number] [place] [address] Aug, [facility] [address] [id number] [place] [address] Aug, [facility] [address] [id number] [place] [address] Jul, [facility] [address] [id number] [place] [address] Jul, [facility] [address] [id number] [place] [address] Jul, [facility] [address] [facility] [id number] [facility] [place] [address] Jul, [facility] [address] [facility] [id number] [place] [address] Jun, [facility] [address] [facility] [id number] [place] [address] Jun, [facility] [address] [id number] [place] [address] Jun, [facility] [address] [facility] [id number] [place] [address] Jun, [facility] [address] [facility] [id number] [place] [address] May, [facility] [address] [id number] [place] [address] May, [facility] [address] [id number] [place] [address] May, [facility] [address] [id number] [place] [address] May, [facility] [address] [facility] [id number] [place] [address] May, [facility] [address] [id number] [place] [address] May, [facility] [address] [id number] [place] [address] May, [facility] [address] [id number] [place] [address] Apr, [facility] [address] [facility] [id number] [place] [address] Apr, [facility] [address] [id number] [place] [address] Apr, [facility] [address] [id number] [place] [address] Apr, [facility] [address] [id number] [place] [address] March, [facility] [address] [id number] [place] [address] March, [facility] [address] [id number] [place] [address] March, [facility] [address] [id number] [place] [address] March, [facility] [address] [id number] [place] [address] March, [facility] [address] [id number] [place] [address] March, [facility] [address] [id number] [place] [address] March, [facility] [address] [id number] [place] [address] Feb, [facility] [address] [id number] [place] [address] Feb, [address] [id number] Feb, [facility] [address] [id number] [place] [address] Feb, [facility] [address] [id number] [place] [address] Feb, [facility] [address] [id number] [place] [address] Feb, [facility] [address] [id number] [place] [address] Jan, [facility] [address] [id number] [place] [address] Jan, [facility] [address] [id number] [place] [address] Jan, [facility] [address] [id number] [place] [address] Jan, [facility] [address] [id number] [place] [address] Jan, [facility] [address] [facility] [id number] [place] [address] Jan, [facility] [address] [facility] [id number] [facility] [place] [address] Jan, [facility] [address] [facility] [id number] [place] [address] Jan, [facility] [address] [facility] [id number] [place] [address] Jan, [facility] [address] [facility] [id number] [place] [address] Jan, [facility] [address] [id number] [place] [address] Jan, [facility] [address] [id number] [place] [address] Jan, [facility] [address] [id number] [place] [address] Jan, [facility] [address] [facility] [id number] [place] [address] Jan, [facility] [address] [id number] [place] [address] Jan, [facility] [address] [id number] [place] [address] Jan, [facility] [address] [id number] [place] [address] Jan, [facility] [address] [facility] [id number] [place] [address] Jan, [facility] [address] [facility] [id number] [place] [address] Dec, [facility] [address] [facility] [id number] [place] [address] Dec, [facility] [address] [id number] [place] [address] Dec, [facility] [address] [id number] [place] [address] 17 Dec, 2013 [facility] [address] [id number] [place] [address] Dec, [facility] [address] [id number] [place] [address] Dec, [facility] [address] [id number] [place] [address] Dec, [facility] [address] [id number] [place] [address] Dec, [facility] [address] [id number] [place] [address] Dec, [facility] [address] [id number] [place] [address] Dec, [facility] [address] [id number] [place] [address] Dec, [facility] [address] [id number] [place] [address] Dec, [facility] [address] [id number] [place] [address] Nov, [facility] [address] [id number] [place] [address] Nov, [facility] [address] [id number] [place] [address] Nov, [facility] [address] [id number] [place] [address] Nov, [facility] [address] [id number] [place] [address] Nov, [facility] [address] [id number] [place] [address] Nov, [facility] [address] [id number] [place] [address] Nov, [facility] [address] [id number] [place] [address] Oct, [facility] [address] [facility] [id number] [place] [address] Oct, [facility] [address] [id number] [place] [address] Sep, [facility] [address] [id number] [place] [address] Sep, [facility] [address] [id number] [place] [address] Sep, [facility] [address] [facility] [id number] [place] [address] Sep, [facility] [address] [id number] [place] [address] Aug, [facility] [address] [id number] [place] [address] Aug, [facility] [address] [id number] [place] [address] Aug, [facility] [address] [id number] [place] [address] Jul, [facility] [address] [id number] [place] [address] Jul, [facility] [address] [id number] [place] [address] Jun, [facility] [address] [id number] [place] [address] Jun, [facility] [address] [id number] [place] [address] Jun, [facility] [address] [id number] [place] [address] May, [facility] [address] [id number] [place] [address] May, [facility] [address] [id number] [place] [address] May, [facility] [address] [id number] [place] [address] Apr, [facility] [address] [id number] [place] [address] Apr, [facility] [address] [id number] [place] [address] March, [facility] [address] [id number] [place] [address] Feb, [facility] [address] [id number] [place] [address] Jan, [facility] [address] [id number] [place] [address] Jan, [facility] [address] [id number] [place] [address] Dec, [facility] [address] [place] [id number] [place] [address] Nov, [facility] [address] [place] [id number] [place] [address] Oct, [facility] [address] [id number] [place] [address] Oct, [facility] [address] [id number] [place] [address] 30 Sep, 2012 [facility] [address] [place] [id number] [place] [address] Sep, [facility] [address] [id number] [place] [address] 29 Sep, 2012 [facility] [address] [id number] [place] [address] 28 Sep, 2012 [facility] [address] [place] [id number] [place] [address] 13 Sep, 2012 [facility] [address] [id number] [place] [address] Sep, [facility] [address] [place] [id number] [place] [address] Sep, [facility] [address] [id number] [place] [address] Sep, [facility] [address] [id number] [place] [address] Jul, [facility] [address] [id number] [place] [address] Jun, [facility] [address] [id number] [place] [address] Jun, [facility] [address] [id number] [place] [address] Jun, [facility] [address] [id number] [place] [address] Jun, [facility] [address] [id number] [place] [address] May, [facility] [address] [place] [id number] [place] [address] Apr, [facility] [address] [id number] [place] [address] Jan, [facility] [address] [place] [id number] [place] [address] Dec, [facility] [address] [id number] [place] [address] Dec, [facility] [address] [id number] [place] [address] Nov, [facility] [address] [id number] [place] [address] Oct, [facility] [address] [id number] [place] [address] Oct, [facility] [address] [place] [id number] [place] [address] Aug, [facility] [address] [id number] [place] [address] Aug, [facility] [address] [place] [id number] [place] [address] 18 Aug, 2011 [facility] [address] [id number] [place] [address] 14 Aug, 2011 [facility] [address] [id number] [place] [address] 11 Aug, 2011 [facility] [address] [id number] [place] [address] 11 Aug, 2011 [facility] [address] [id number] [place] [address] 19 May, 2011 [facility] [address] [id number] [place] [address] 13 Apr, 2011 [facility] [address] [id number] [place] [address] 18 Feb, 2011 [facility] [address] [id number] [place] [address] 28 Oct, 2010 [facility] [address] [id number] [place] [address] 21 Oct, 2010 [facility] [address] [id number] [place] [address] 07 Oct, 2010 [facility] [address] [id number] [place] [address] 09 Sep, 2010 [facility] [address] [id number] [place] [address] 26 Aug, 2010 [facility] [address] [id number] [place] [address] 16 Jul, 2010 [facility] [address] [id number] [place] [address] 13 May, 2010 [facility] [address] [id number] [place] [address] Dec, [facility] [address] [id number] [place] [address] Nov, [facility] [address] [id number] [place] [address] 14 Oct, 2009 [facility] [address] [id number] [place] [address] Sep, [facility] [address] [id number] [place] [address] Sep, [facility] [address] [id number] [place] [address] Jul, [facility] [address] [id number] [place] [address] Jun, [facility] [address] [id number] [place] [address] May, IMMUNIZATIONS No Known Immunizations SOCIAL HISTORY Never Assessed REASON FOR VISIT PLAN OF CARE VITAL SIGNS MEDICATIONS Unknown Medications RESULTS No Results PROCEDURES Procedure Date Ordered Result Body Site CT ABD & PELVIS W/O CONTRAST February 07, 2014 URINALYSIS, AUTO, W/O SCOPE February 07, 2014 INSTRUCTIONS MEDICATIONS ADMINISTERED No Known Medications [...]
--- OUTSIDE RECORDS SUMMARY | 2020-06-11 20:52 | XMS REPORT ---
Author Author Jd ROBLEDO Organization [facility] Address [address] [place] [address] Care Team Providers Care Education Sales Consultant Name Role Phone PAULA ROBLEDO Unavailable PROBLEMS Type Condition ICD9-CM Code SIM84-SE Code Onset Dates Condition S tatus SNOMED Code Problem Raynauds disease I73.00 Active 195 811099 Problem Venous insufficiency I87.2 Active 00318745 Problem Other chronic pain G89.29 Active 8 6958324 Problem Hypokalemia E87.6 Active 42936336 Problem Prediabetes R73.03 Active 47970092 2 Problem Low back pain M54.5 Active 542224 009 Problem Congenital deafness H90.5 Active 07065758 Problem Dysthymia F34.1 Active 52210581 Problem Neuropathy G62.9 Active [id number] ALLERGIES No Information ENCOUNTERS Encounter Location Date Diagnosis [place] [address] [address] Feb, [place] [address] [address] Jan, Neuropathy G62.9 [place] [address] [address] Dec, Neuropathy G62.9 [place] [address] [address] Nov, Raynauds disease I73.00 ; Venous insuffi ciency I87.2 ; Prediabetes R73.03 and Neuropathy G62.9 [place] [address] [address] Jun, Congenital deafness H90.5 [place] [address] [address] Jun, Other chronic pain G89.29 [facility] [id number] [place] [address] Jun, Acute kidney injury N17.9 [facility] [address] [facility] [id number] [address] [place] [address] Jan, Abscess of left knee L02.416 [facility] [address] [address] Jan, Prediabetes R73.03 ; Raynauds disease I7 3.00 and Venous insufficiency I87.2 [place] [address] [address] Oct, Neuropathy G62.9 ; Low back pain M54.5 a nd URI (upper respiratory infection) J06.9 [place] [address] [address] Jul, Raynauds disease I73.00 and Hypokalemia E87.6 [place] [address] [address] 05 May, 2018 Medicare annual wellness visit, initial Z00.00 ; Dysthymia F34.1 ; Raynauds disease I73.00 ; Venous insufficiency I87.2 ; Congenital deafness H90.5 and Neuropathy G62.9 [place] [address] [address] Apr, [place] [address] [address] Apr, Prediabetes R73.03 ; Raynauds disease I7 3.00 ; Venous insufficiency I87.2 ; Neuropathy G62.9 and Dysthymia F34.1 [place] [address] [address] March, [place] [address] [address] Sep, Hyperglycemia R73.9 [place] [address] [address] Sep, Hyperglycemia R73.9 [place] [address] [address] Sep, Raynauds disease I73.00 ; Venous insuffi ciency I87.2 and Encounter for immunization Z23 [place] [address] [address] Jun, [place] [address] [address] May, [place] [address] [address] May, Other chronic pain G89.29 [place] [address] [address] May, Raynauds disease I73.00 ; Venous insuffi ciency I87.2 and Low back pain M54.5 [place] [address] [address] Dec, Raynauds disease I73.00 ; Venous insuffi ciency I87.2 ; Low back pain M54.5 and Other chronic pain G89.29 [place] [address] [address] Nov, [place] [address] [address] Nov, Muscle spasm M62.838 [facility] [address] [place] [id number] [place] [address] Nov, [place] [address] [address] Oct, Folliculitis L73.9 and Venous insufficie ncy I87.2 [place] [address] [address] Sep, Dermatitis L30.9 and Raynauds disease I7 3.00 [facility] [address] [place] [id number] [address] [place] [address] Sep, Rash and nonspecific skin er uption R21 [place] [address] [address] Aug, Skin infection L08.9 [place] [address] [address] May, Infected smith L08.9 [place] [address] [address] May, Skin infection L08.9 [place] [address] [address] Dec, [place] [address] [address] Nov, [place] [address] [address] Nov, [place] [address] [address] Nov, Raynauds disease I73.00 [place] [address] [address] Nov, Raynauds disease I73.00 ; Leg cramps R25 .2 ; Venous insufficiency I87.2 and Routine adult health maintenance Z00.00 [place] [address] [address] Jul, Infected sebaceous cyst 706.2 [place] [address] [address] Jun, [place] [address] [address] Jun, [place] [address] [address] Jun, Venous insufficiency 459.81 and Raynauds disease 443.0 [place] [address] [address] 14 Feb, 2015 [facility] [place] [facility] [address] [id number] [place] [address] Feb, [facility] [place] [facility] [address] [id number] [place] [address] Jan, [facility] [place] [facility] [address] [id number] [place] [address] Jan, [facility] [place] [facility] [address] [id number] [place] [address] Dec, [facility] [place] [facility] [address] [id number] [place] [address] Dec, [facility] [place] [facility] [address] [id number] [place] [address] Dec, [facility] [place] [facility] [address] [id number] [place] [address] Dec, [facility] [place] [facility] [address] [id number] [place] [address] Nov, [facility] [place] [facility] [address] [id number] [place] [address] Nov, [facility] [place] [facility] [address] [id number] [place] [address] Oct, [facility] [place] [facility] [address] [id number] [place] [address] Oct, [facility] [place] [facility] [address] [id number] [place] [address] Aug, [facility] [place] [facility] [address] [id number] [place] [address] Aug, [facility] [place] [facility] [address] [id number] [place] [address] Aug, [facility] [place] [facility] [address] [id number] [place] [address] Jul, [facility] [place] [facility] [address] [id number] [place] [address] Jul, [facility] [place] [facility] [address] [facility] [id number] [place] [address] Jul, [facility] [place] [facility] [address] [facility] [id number] [place] [address] Jul, [facility] [place] [facility] [address] [facility] [id number] [place] [address] Jun, [facility] [place] [facility] [address] [facility] [id number] [place] [address] Jun, [facility] [place] [facility] [address] [facility] [id number] [place] [address] Jun, [facility] [place] [facility] [address] [facility] [id number] [place] [address] Jun, [facility] [place] [facility] [address] [id number] [place] [address] May, [facility] [place] [facility] [address] [id number] [place] [address] May, [facility] [place] [facility] [address] [id number] [place] [address] May, [facility] [place] [facility] [address] [facility] [id number] [place] [address] May, [facility] [place] [facility] [address] [id number] [place] [address] May, [facility] [place] [facility] [address] [id number] [place] [address] May, [facility] [place] [facility] [address] [id number] [place] [address] May, [facility] [place] [facility] [address] [facility] [id number] [place] [address] Apr, [facility] [place] [facility] [address] [id number] [place] [address] Apr, [facility] [place] [facility] [address] [facility] [id number] [place] [address] Apr, [facility] [place] [facility] [address] [id number] [place] [address] Apr, [facility] [address] [id number] [place] [address] March, [facility] [address] [id number] [place] [address] March, [facility] [address] [id number] [place] [address] March, [facility] [address] [id number] [place] [address] March, [facility] [place] [facility] [address] [facility] [id number] [place] [address] March, [facility] [address] [id number] [place] [address] March, [facility] [address] [id number] [place] [address] March, [facility] [address] [id number] [place] [address] Feb, [facility] [address] [id number] [place] [address] Feb, [facility] [address] [place] [id number] Feb, [facility] [address] [id number] [place] [address] Feb, [facility] [address] [id number] [place] [address] Feb, [facility] [place] [facility] [address] [id number] [place] [address] Feb, [facility] [place] [facility] [address] [id number] [place] [address] Jan, [facility] [place] [facility] [address] [id number] [place] [address] Jan, [facility] [place] [facility] [address] [id number] [place] [address] Jan, [facility] [place] [facility] [address] [id number] [place] [address] Jan, [facility] [place] [facility] [address] [facility] [id number] [place] [address] Jan, [facility] [place] [facility] [address] [facility] [id number] [place] [address] Jan, [facility] [place] [facility] [address] [facility] [id number] [place] [address] Jan, [facility] [place] [facility] [address] [facility] [id number] [place] [address] Jan, [facility] [place] [facility] [address] [facility] [id number] [place] [address] Jan, [facility] [place] [facility] [address] [facility] [id number] [place] [address] Jan, [facility] [place] [facility] [address] [facility] [id number] [place] [address] Jan, [facility] [place] [facility] [address] [id number] [place] [address] Jan, [facility] [place] [facility] [address] [facility] [id number] [place] [address] Jan, [facility] [place] [facility] [address] [id number] [place] [address] Jan, [facility] [place] [facility] [address] [facility] [id number] [place] [address] Jan, [facility] [place] [facility] [address] [id number] [place] [address] Jan, [facility] [place] [facility] [address] [facility] [id number] [place] [address] Jan, [facility] [place] [facility] [address] [facility] [id number] [place] [address] Jan, [facility] [place] [facility] [address] [facility] [id number] [place] [address] Dec, [facility] [place] [facility] [address] [id number] [place] [address] Dec, [facility] [place] [facility] [address] [id number] [place] [address] Dec, [facility] [place] [facility] [address] [id number] [place] [address] Dec, [facility] [place] [facility] [address] [id number] [place] [address] Dec, [facility] [place] [facility] [address] [id number] [place] [address] Dec, [facility] [place] [facility] [address] [id number] [place] [address] Dec, [facility] [place] [facility] [address] [id number] [place] [address] Dec, [facility] [place] [facility] [address] [id number] [place] [address] Dec, [facility] [place] [facility] [address] [id number] [place] [address] Dec, [facility] [place] [facility] [address] [id number] [place] [address] Dec, [facility] [place] [facility] [address] [id number] [place] [address] Dec, [facility] [place] [facility] [address] [id number] [place] [address] Nov, [facility] [place] [facility] [address] [id number] [place] [address] Nov, [facility] [place] [facility] [address] [id number] [place] [address] Nov, [facility] [place] [facility] [address] [id number] [place] [address] Nov, [facility] [place] [facility] [address] [id number] [place] [address] Nov, [facility] [place] [facility] [address] [id number] [place] [address] Nov, [facility] [place] [facility] [address] [id number] [place] [address] Nov, [facility] [place] [facility] [address] [facility] [id number] [place] [address] Oct, [facility] [place] [facility] [address] [facility] [id number] [place] [address] Oct, [facility] [place] [facility] [address] [id number] [place] [address] Sep, [facility] [place] [facility] [address] [id number] [place] [address] Sep, [facility] [place] [facility] [address] [facility] [id number] [place] [address] Sep, [facility] [place] [facility] [address] [id number] [place] [address] Sep, [facility] [place] [facility] [address] [id number] [place] [address] Aug, [facility] [place] [facility] [address] [id number] [place] [address] Aug, [facility] [place] [facility] [address] [id number] [place] [address] Aug, [facility] [place] [facility] [address] [id number] [place] [address] Jul, [facility] [place] [facility] [address] [id number] [place] [address] Jul, [facility] [place] [facility] [address] [id number] [place] [address] Jun, [facility] [place] [facility] [address] [id number] [place] [address] Jun, [facility] [place] [facility] [address] [id number] [place] [address] Jun, [facility] [place] [facility] [address] [id number] [place] [address] May, [facility] [place] [facility] [address] [id number] [place] [address] May, [facility] [place] [facility] [address] [id number] [place] [address] May, [facility] [place] [facility] [address] [id number] [place] [address] Apr, [facility] [place] [facility] [address] [id number] [place] [address] Apr, [facility] [place] [facility] [id number] [place] [address] March, [facility] [place] [facility] [address] [id number] [place] [address] Feb, [facility] [place] [facility] [address] [id number] [place] [address] Jan, [facility] [place] [facility] [address] [id number] [place] [address] Jan, [facility] [place] [facility] [address] [id number] [place] [address] 07 Dec, 2012 [facility] [place] [facility] [id number] [place] [address] Nov, [facility] [place] [facility] [address] [id number] [place] [address] Oct, [facility] [place] [facility] [address] [id number] [place] [address] Oct, [facility] [place] [facility] [address] [id number] [place] [address] 30 Sep, 2012 [facility] [place] [facility] [id number] [place] [address] Sep, [facility] [place] [facility] [address] [id number] [place] [address] 29 Sep, 2012 [facility] [place] [facility] [address] [id number] [place] [address] 28 Sep, 2012 [facility] [place] [facility] [address] [id number] [place] [address] Sep, [facility] [place] [facility] [address] [id number] [place] [address] Sep, [facility] [place] [facility] [address] [id number] [place] [address] Sep, [facility] [place] [facility] [address] [id number] [place] [address] Sep, [facility] [place] [facility] [address] [id number] [place] [address] Jul, [facility] [place] [facility] [address] [id number] [place] [address] Jun, [facility] [place] [facility] [address] [id number] [place] [address] Jun, [facility] [place] [facility] [address] [id number] [place] [address] Jun, [facility] [place] [facility] [address] [id number] [place] [address] Jun, [facility] [place] [facility] [id number] [place] [address] May, [facility] [place] [facility] [address] [id number] [place] [address] Apr, [facility] [place] [facility] [address] [id number] [place] [address] Jan, [facility] [place] [facility] [address] [id number] [place] [address] 14 Dec, 2011 [facility] [place] [facility] [id number] [place] [address] Dec, [facility] [place] [facility] [address] [id number] [place] [address] Nov, [facility] [address] [id number] [place] [address] Oct, [facility] [address] [id number] [place] [address] Oct, [facility] [address] [id number] [place] [address] Aug, [facility] [address] [id number] [place] [address] 18 Aug, 2011 [facility] [address] [id number] [place] [address] 18 Aug, 2011 [facility] [address] [id number] [place] [address] 14 Aug, 2011 [facility] [address] [id number] [place] [address] 11 Aug, 2011 [facility] [address] [facility] [id number] [place] [address] 11 Aug, 2011 [facility] [address] [id number] [place] [address] May, [facility] [address] [id number] [place] [address] Apr, [facility] [address] [id number] [place] [address] Feb, [facility] [address] [id number] [place] [address] Oct, [facility] [address] [id number] [place] [address] Oct, [facility] [address] [id number] [place] [address] Oct, [facility] [address] [id number] [place] [address] Sep, [facility] [address] [id number] [place] [address] Aug, [facility] [address] [id number] [place] [address] 16 Jul, 2010 [facility] [address] [id number] [place] [address] May, [facility] [address] [id number] [place] [address] Dec, [facility] [address] [id number] [place] [address] Nov, [facility] [address] [id number] [place] [address] 14 Oct, 2009 [facility] [address] [id number] [place] [address] Sep, [facility] [address] [id number] [place] [address] Sep, [facility] [address] [id number] [place] [address] Jul, [facility] [address] [id number] [place] [address] Jun, [facility] [address] [id number] [place] [address] May, IMMUNIZATIONS No Known Immunizations SOCIAL HISTORY [...]
--- OUTSIDE RECORDS SUMMARY | 2020-06-11 20:52 | XMS REPORT ---
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 Name Role Phone PAULA ROBLEDO Unavailable PROBLEMS Type Condition ICD9-CM Code UHX65-DO Code Onset Dates Condition S tatus SNOMED Code Problem Raynauds disease I73.00 Active 195 777758 Problem Venous insufficiency I87.2 Active 88077202 Problem Other chronic pain G89.29 Active 8 6797515 Problem Hypokalemia E87.6 Active 69809598 Problem Prediabetes R73.03 Active 38503103 2 Problem Low back pain M54.5 Active 257808 009 Problem Congenital deafness H90.5 Active 83728211 Problem Dysthymia F34.1 Active 73057348 Problem Neuropathy G62.9 Active [id number] ALLERGIES No Information ENCOUNTERS Encounter Location Date Diagnosis [place] [address] [address] Jan, Neuropathy G62.9 [place] [address] [address] 14 Dec, 2019 Neuropathy G62.9 [place] [address] [address] Nov, Raynauds disease I73.00 ; Venous insuffi ciency I87.2 ; Prediabetes R73.03 and Neuropathy G62.9 [place] [address] [address] Jun, Congenital deafness H90.5 [place] [address] [address] Jun, Other chronic pain G89.29 [place] [address] [address] Jun, Acute kidney injury N17.9 [facility] [address] [facility] [id number] [address] [place] [address] Jan, Abscess of left knee L02.416 [facility] [address] [address] Jan, Prediabetes R73.03 ; Raynauds disease I7 3.00 and Venous insufficiency I87.2 [place] [address] [address] Oct, Neuropathy G62.9 ; Low back pain M54.5 a nd URI (upper respiratory infection) J06.9 [place] [address] [address] Jul, Raynauds disease I73.00 and Hypokalemia E87.6 [place] [address] [address] May, Medicare annual wellness visit, initial Z00.00 ; Dysthymia F34.1 ; Raynauds disease I73.00 ; Venous insufficiency I87.2 ; Congenital deafness H90.5 and Neuropathy G62.9 [place] [address] [address] Apr, [place] [address] [address] Apr, Prediabetes R73.03 ; Raynauds disease I7 3.00 ; Venous insufficiency I87.2 ; Neuropathy G62.9 and Dysthymia F34.1 [place] [address] [address] March, [place] [address] [address] Sep, Hyperglycemia R73.9 [place] [address] [address] 07 Sep, 2017 Hyperglycemia R73.9 [place] [address] [address] Sep, Raynauds disease I73.00 ; Venous insuffi ciency I87.2 and Encounter for immunization Z23 [place] [address] [address] Jun, [place] [address] [address] May, [place] [address] [address] May, Other chronic pain G89.29 [place] [address] [address] May, Raynauds disease I73.00 ; Venous insuffi ciency I87.2 and Low back pain M54.5 [place] [address] [address] Dec, Raynauds disease I73.00 ; Venous insuffi ciency I87.2 ; Low back pain M54.5 and Other chronic pain G89.29 [place] [address] [address] Nov, [place] [address] [address] Nov, Muscle spasm M62.838 [facility] [address] [place] [address] Nov, [facility] [address] [address] 15 Oct, 2016 Folliculitis L73.9 and Venous insufficie ncy I87.2 [place] [address] [address] 17 Sep, 2016 Dermatitis L30.9 and Raynauds disease I7 3.00 [facility] [address] [place] [id number] [address] 13 Sep, 2016 Rash and nonspecific skin er uption R21 [facility] [address] [address] Aug, Skin infection L08.9 [facility] [address] [address] May, Infected smith L08.9 [facility] [address] [address] May, Skin infection L08.9 [facility] [address] [address] Dec, [facility] [address] [address] Nov, [facility] [address] [address] Nov, [facility] [address] [address] Nov, Raynauds disease I73.00 [facility] [address] [address] Nov, Raynauds disease I73.00 ; Leg cramps R25 .2 ; Venous insufficiency I87.2 and Routine adult health maintenance Z00.00 [facility] [address] [address] Jul, Infected sebaceous cyst 706.2 [facility] [address] [address] Jun, [facility] [address] [address] Jun, [facility] [address] [address] Jun, Venous insufficiency 459.81 and Raynauds disease 443.0 [facility] [address] [address] Feb, [facility] [address] [address] Feb, [facility] [address] [id number] [place] [address] Jan, [facility] [address] [id number] [place] [address] Jan, [facility] [address] [id number] [place] [address] Dec, [facility] [address] [id number] [place] [address] Dec, [facility] [address] [id number] [place] [address] Dec, [facility] [address] [id number] [place] [address] Dec, [facility] [address] [id number] [place] [address] Nov, [facility] [address] [id number] [place] [address] Nov, [facility] [address] [id number] [place] [address] Oct, [facility] [address] [id number] [place] [address] Oct, [facility] [address] [id number] [place] [address] Aug, [facility] [address] [id number] [place] [address] Aug, [facility] [address] [id number] [place] [address] Aug, [facility] [address] [id number] [place] [address] Jul, [facility] [address] [id number] [place] [address] Jul, [facility] [address] [id number] [place] [address] Jul, [facility] [address] [facility] [id number] [facility] [place] [address] Jul, [facility] [address] [facility] [id number] [place] [address] Jun, [facility] [address] [facility] [id number] [place] [address] Jun, [facility] [address] [id number] [place] [address] Jun, [facility] [address] [facility] [id number] [place] [address] Jun, [facility] [address] [facility] [id number] [place] [address] May, [facility] [address] [id number] [place] [address] May, [facility] [address] [id number] [place] [address] May, [facility] [address] [id number] [place] [address] May, [facility] [address] [facility] [id number] [place] [address] May, [facility] [address] [id number] [place] [address] May, [facility] [address] [id number] [place] [address] May, [facility] [address] [id number] [place] [address] Apr, [facility] [address] [facility] [id number] [place] [address] Apr, [facility] [address] [id number] [place] [address] Apr, [facility] [address] [id number] [place] [address] Apr, [facility] [address] [id number] [place] [address] March, [facility] [address] [id number] [place] [address] March, [facility] [address] [id number] [place] [address] March, [facility] [address] [id number] [place] [address] March, [facility] [address] [id number] [place] [address] March, [facility] [address] [id number] [place] [address] March, [facility] [address] [id number] [place] [address] March, [facility] [address] [id number] [place] [address] Feb, [facility] [address] [id number] [place] [address] Feb, [address] [id number] Feb, [facility] [address] [id number] [place] [address] Feb, [facility] [address] [id number] [place] [address] Feb, [facility] [address] [id number] [place] [address] Feb, [facility] [address] [id number] [place] [address] Jan, [facility] [address] [id number] [place] [address] Jan, [facility] [address] [id number] [place] [address] Jan, [facility] [address] [id number] [place] [address] Jan, [facility] [address] [id number] [place] [address] Jan, [facility] [address] [facility] [id number] [place] [address] Jan, [facility] [address] [facility] [id number] [facility] [place] [address] Jan, [facility] [address] [facility] [id number] [place] [address] Jan, [facility] [address] [facility] [id number] [place] [address] Jan, [facility] [address] [facility] [id number] [place] [address] Jan, [facility] [address] [id number] [place] [address] Jan, [facility] [address] [id number] [place] [address] Jan, [facility] [address] [id number] [place] [address] Jan, [facility] [address] [facility] [id number] [place] [address] Jan, [facility] [address] [id number] [place] [address] Jan, [facility] [address] [id number] [place] [address] Jan, [facility] [address] [id number] [place] [address] Jan, [facility] [address] [facility] [id number] [place] [address] Jan, [facility] [address] [facility] [id number] [place] [address] Dec, [facility] [address] [facility] [id number] [place] [address] Dec, [facility] [address] [id number] [place] [address] Dec, [facility] [address] [id number] [place] [address] 17 Dec, 2013 [facility] [address] [id number] [place] [address] Dec, [facility] [address] [id number] [place] [address] Dec, [facility] [address] [id number] [place] [address] Dec, [facility] [address] [id number] [place] [address] Dec, [facility] [address] [id number] [place] [address] Dec, [facility] [address] [id number] [place] [address] Dec, [facility] [address] [id number] [place] [address] Dec, [facility] [address] [id number] [place] [address] Dec, [facility] [address] [id number] [place] [address] Nov, [facility] [address] [id number] [place] [address] Nov, [facility] [address] [id number] [place] [address] Nov, [facility] [address] [id number] [place] [address] Nov, [facility] [address] [id number] [place] [address] Nov, [facility] [address] [id number] [place] [address] Nov, [facility] [address] [id number] [place] [address] Nov, [facility] [address] [id number] [place] [address] Oct, [facility] [address] [facility] [id number] [place] [address] Oct, [facility] [address] [id number] [place] [address] Sep, [facility] [address] [id number] [place] [address] Sep, [facility] [address] [id number] [place] [address] Sep, [facility] [address] [facility] [id number] [place] [address] Sep, [facility] [address] [id number] [place] [address] Aug, [facility] [address] [id number] [place] [address] Aug, [facility] [address] [id number] [place] [address] Aug, [facility] [address] [id number] [place] [address] Jul, [facility] [address] [id number] [place] [address] Jul, [facility] [address] [id number] [place] [address] Jun, [facility] [address] [id number] [place] [address] Jun, [facility] [address] [id number] [place] [address] Jun, [facility] [address] [id number] [place] [address] May, [facility] [address] [id number] [place] [address] May, [facility] [address] [id number] [place] [address] May, [facility] [address] [id number] [place] [address] Apr, [facility] [address] [id number] [place] [address] Apr, [facility] [address] [id number] [place] [address] March, [facility] [address] [id number] [place] [address] Feb, [facility] [address] [id number] [place] [address] Jan, [facility] [address] [id number] [place] [address] Jan, [facility] [address] [id number] [place] [address] Dec, [facility] [address] [place] [id number] [place] [address] Nov, [facility] [address] [place] [id number] [place] [address] Oct, [facility] [address] [id number] [place] [address] Oct, [facility] [address] [id number] [place] [address] 30 Sep, 2012 [facility] [address] [place] [id number] [place] [address] Sep, [facility] [address] [id number] [place] [address] 29 Sep, 2012 [facility] [address] [id number] [place] [address] 28 Sep, 2012 [facility] [address] [place] [id number] [place] [address] 13 Sep, 2012 [facility] [address] [id number] [place] [address] Sep, [facility] [address] [place] [id number] [place] [address] Sep, [facility] [address] [id number] [place] [address] Sep, [facility] [address] [id number] [place] [address] Jul, [facility] [address] [id number] [place] [address] Jun, [facility] [address] [id number] [place] [address] Jun, [facility] [address] [id number] [place] [address] Jun, [facility] [address] [id number] [place] [address] Jun, [facility] [address] [id number] [place] [address] May, [facility] [address] [place] [id number] [place] [address] Apr, [facility] [address] [id number] [place] [address] Jan, [facility] [address] [place] [id number] [place] [address] Dec, [facility] [address] [id number] [place] [address] Dec, [facility] [address] [id number] [place] [address] Nov, [facility] [address] [id number] [place] [address] Oct, [facility] [address] [id number] [place] [address] Oct, [facility] [address] [place] [id number] [place] [address] Aug, [facility] [address] [id number] [place] [address] Aug, [facility] [address] [place] [id number] [place] [address] 18 Aug, 2011 [facility] [address] [id number] [place] [address] 14 Aug, 2011 [facility] [address] [id number] [place] [address] 11 Aug, 2011 [facility] [address] [id number] [place] [address] 11 Aug, 2011 [facility] [address] [id number] [place] [address] 19 May, 2011 [facility] [address] [id number] [place] [address] 13 Apr, 2011 [facility] [address] [id number] [place] [address] 18 Feb, 2011 [facility] [address] [id number] [place] [address] 28 Oct, 2010 [facility] [address] [id number] [place] [address] 21 Oct, 2010 [facility] [address] [id number] [place] [address] 07 Oct, 2010 [facility] [address] [id number] [place] [address] 09 Sep, 2010 [facility] [address] [id number] [place] [address] 26 Aug, 2010 [facility] [address] [id number] [place] [address] 16 Jul, 2010 [facility] [address] [id number] [place] [address] 13 May, 2010 [facility] [address] [id number] [place] [address] Dec, [facility] [address] [id number] [place] [address] Nov, [facility] [address] [id number] [place] [address] 14 Oct, 2009 [facility] [address] [id number] [place] [address] Sep, [facility] [address] [id number] [place] [address] Sep, [facility] [address] [id number] [place] [address] Jul, [facility] [address] [id number] [place] [address] Jun, [facility] [address] [id number] [place] [address] May, IMMUNIZATIONS No Known Immunizations SOCIAL HISTORY Never Assessed REASON FOR VISIT PLAN OF CARE VITAL SIGNS Height 73 in 2013-12-31 Weight 228 lbs 2013-12-31 Temperature 96.7 degrees Fahrenheit 2013-12-31 Heart Rate 72 bpm 2013-12-31 Respiratory Rate 20 2013-12-31 Blood pressure systolic 110 mmHg 2013-12-31 Blood pressure diastolic 70 mmHg 2013-12-31 MEDICATIONS Unknown Medications RESULTS No Results PROCEDURES [...]
--- OUTSIDE RECORDS SUMMARY | 2020-06-11 20:52 | XMS REPORT ---
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 Name Role Phone PAULA ROBLEDO Unavailable PROBLEMS Type Condition ICD9-CM Code CUB23-NZ Code Onset Dates Condition S tatus SNOMED Code Problem Raynauds disease I73.00 Active 195 026983 Problem Venous insufficiency I87.2 Active 50518442 Problem Other chronic pain G89.29 Active 8 5641818 Problem Hypokalemia E87.6 Active 83108383 Problem Prediabetes R73.03 Active 03444410 2 Problem Low back pain M54.5 Active 112748 009 Problem Congenital deafness H90.5 Active 50663671 Problem Dysthymia F34.1 Active 57768035 Problem Neuropathy G62.9 Active [id number] ALLERGIES No Information ENCOUNTERS Encounter Location Date Diagnosis [place] [address] [address] Jan, Neuropathy G62.9 [place] [address] [address] 14 Dec, 2019 Neuropathy G62.9 [place] [address] [address] Nov, Raynauds disease I73.00 ; Venous insuffi ciency I87.2 ; Prediabetes R73.03 and Neuropathy G62.9 [place] [address] [address] Jun, Congenital deafness H90.5 [place] [address] [address] Jun, Other chronic pain G89.29 [place] [address] [address] Jun, Acute kidney injury N17.9 [facility] [address] [facility] [id number] [address] [place] [address] Jan, Abscess of left knee L02.416 [facility] [address] [address] Jan, Prediabetes R73.03 ; Raynauds disease I7 3.00 and Venous insufficiency I87.2 [place] [address] [address] Oct, Neuropathy G62.9 ; Low back pain M54.5 a nd URI (upper respiratory infection) J06.9 [place] [address] [address] Jul, Raynauds disease I73.00 and Hypokalemia E87.6 [place] [address] [address] May, Medicare annual wellness visit, initial Z00.00 ; Dysthymia F34.1 ; Raynauds disease I73.00 ; Venous insufficiency I87.2 ; Congenital deafness H90.5 and Neuropathy G62.9 [place] [address] [address] Apr, [place] [address] [address] Apr, Prediabetes R73.03 ; Raynauds disease I7 3.00 ; Venous insufficiency I87.2 ; Neuropathy G62.9 and Dysthymia F34.1 [place] [address] [address] March, [place] [address] [address] Sep, Hyperglycemia R73.9 [place] [address] [address] 07 Sep, 2017 Hyperglycemia R73.9 [place] [address] [address] Sep, Raynauds disease I73.00 ; Venous insuffi ciency I87.2 and Encounter for immunization Z23 [place] [address] [address] Jun, [place] [address] [address] May, [place] [address] [address] May, Other chronic pain G89.29 [place] [address] [address] May, Raynauds disease I73.00 ; Venous insuffi ciency I87.2 and Low back pain M54.5 [place] [address] [address] Dec, Raynauds disease I73.00 ; Venous insuffi ciency I87.2 ; Low back pain M54.5 and Other chronic pain G89.29 [place] [address] [address] Nov, [place] [address] [address] Nov, Muscle spasm M62.838 [facility] [address] [place] [address] Nov, [facility] [address] [address] 15 Oct, 2016 Folliculitis L73.9 and Venous insufficie ncy I87.2 [place] [address] [address] 17 Sep, 2016 Dermatitis L30.9 and Raynauds disease I7 3.00 [facility] [address] [place] [id number] [place] [address] 13 Sep, 2016 Rash and nonspecific skin er uption R21 [facility] [address] [address] Aug, Skin infection L08.9 [facility] [address] [address] May, Infected smith L08.9 [facility] [address] [address] May, Skin infection L08.9 [facility] [address] [address] Dec, [facility] [address] [address] Nov, [facility] [address] [address] Nov, [facility] [address] [address] Nov, Raynauds disease I73.00 [facility] [address] [address] Nov, Raynauds disease I73.00 ; Leg cramps R25 .2 ; Venous insufficiency I87.2 and Routine adult health maintenance Z00.00 [facility] [address] [address] Jul, Infected sebaceous cyst 706.2 [facility] [address] [address] Jun, [facility] [address] [address] Jun, [facility] [address] [address] Jun, Venous insufficiency 459.81 and Raynauds disease 443.0 [facility] [address] [address] Feb, [facility] [address] [address] Feb, [facility] [address] [id number] [place] [address] Jan, [facility] [address] [id number] [place] [address] Jan, [facility] [address] [id number] [place] [address] Dec, [facility] [address] [id number] [place] [address] Dec, [facility] [address] [id number] [place] [address] Dec, [facility] [address] [id number] [place] [address] Dec, [facility] [address] [id number] [place] [address] Nov, [facility] [address] [id number] [place] [address] Nov, [facility] [address] [id number] [place] [address] Oct, [facility] [address] [id number] [place] [address] Oct, [facility] [address] [id number] [place] [address] Aug, [facility] [address] [id number] [place] [address] Aug, [facility] [address] [id number] [place] [address] Aug, [facility] [address] [id number] [place] [address] Jul, [facility] [address] [id number] [place] [address] Jul, [facility] [address] [id number] [place] [address] Jul, [facility] [address] [facility] [id number] [facility] [place] [address] Jul, [facility] [address] [facility] [id number] [place] [address] Jun, [facility] [address] [facility] [id number] [place] [address] Jun, [facility] [address] [id number] [place] [address] Jun, [facility] [address] [facility] [id number] [place] [address] Jun, [facility] [address] [facility] [id number] [place] [address] May, [facility] [address] [id number] [place] [address] May, [facility] [address] [id number] [place] [address] May, [facility] [address] [id number] [place] [address] May, [facility] [address] [facility] [id number] [place] [address] May, [facility] [address] [id number] [place] [address] May, [facility] [address] [id number] [place] [address] May, [facility] [address] [id number] [place] [address] Apr, [facility] [address] [facility] [id number] [place] [address] Apr, [facility] [address] [id number] [place] [address] Apr, [facility] [address] [id number] [place] [address] Apr, [facility] [address] [id number] [place] [address] March, [facility] [address] [id number] [place] [address] March, [facility] [address] [id number] [place] [address] March, [facility] [address] [id number] [place] [address] March, [facility] [address] [id number] [place] [address] March, [facility] [address] [id number] [place] [address] March, [facility] [address] [id number] [place] [address] March, [facility] [address] [id number] [place] [address] Feb, [facility] [address] [id number] [place] [address] Feb, [address] [id number] Feb, [facility] [address] [id number] [place] [address] Feb, [facility] [address] [id number] [place] [address] Feb, [facility] [address] [id number] [place] [address] Feb, [facility] [address] [id number] [place] [address] Jan, [facility] [address] [id number] [place] [address] Jan, [facility] [address] [id number] [place] [address] Jan, [facility] [address] [id number] [place] [address] Jan, [facility] [address] [id number] [place] [address] Jan, [facility] [address] [facility] [id number] [place] [address] Jan, [facility] [address] [facility] [id number] [facility] [place] [address] Jan, [facility] [address] [facility] [id number] [place] [address] Jan, [facility] [address] [facility] [id number] [place] [address] Jan, [facility] [address] [facility] [id number] [place] [address] Jan, [facility] [address] [id number] [place] [address] Jan, [facility] [address] [id number] [place] [address] Jan, [facility] [address] [id number] [place] [address] Jan, [facility] [address] [facility] [id number] [place] [address] Jan, [facility] [address] [id number] [place] [address] Jan, [facility] [address] [id number] [place] [address] Jan, [facility] [address] [id number] [place] [address] Jan, [facility] [address] [facility] [id number] [place] [address] Jan, [facility] [address] [facility] [id number] [place] [address] Dec, [facility] [address] [facility] [id number] [place] [address] Dec, [facility] [address] [id number] [place] [address] Dec, [facility] [address] [id number] [place] [address] 17 Dec, 2013 [facility] [address] [id number] [place] [address] Dec, [facility] [address] [id number] [place] [address] Dec, [facility] [address] [id number] [place] [address] Dec, [facility] [address] [id number] [place] [address] Dec, [facility] [address] [id number] [place] [address] Dec, [facility] [address] [id number] [place] [address] Dec, [facility] [address] [id number] [place] [address] Dec, [facility] [address] [id number] [place] [address] Dec, [facility] [address] [id number] [place] [address] Nov, [facility] [address] [id number] [place] [address] Nov, [facility] [address] [id number] [place] [address] Nov, [facility] [address] [id number] [place] [address] Nov, [facility] [address] [id number] [place] [address] Nov, [facility] [address] [id number] [place] [address] Nov, [facility] [address] [id number] [place] [address] Nov, [facility] [address] [id number] [place] [address] Oct, [facility] [address] [facility] [id number] [place] [address] Oct, [facility] [address] [id number] [place] [address] Sep, [facility] [address] [id number] [place] [address] Sep, [facility] [address] [id number] [place] [address] Sep, [facility] [address] [facility] [id number] [place] [address] Sep, [facility] [address] [id number] [place] [address] Aug, [facility] [address] [id number] [place] [address] Aug, [facility] [address] [id number] [place] [address] Aug, [facility] [address] [id number] [place] [address] Jul, [facility] [address] [id number] [place] [address] Jul, [facility] [address] [id number] [place] [address] Jun, [facility] [address] [id number] [place] [address] Jun, [facility] [address] [id number] [place] [address] Jun, [facility] [address] [id number] [place] [address] May, [facility] [address] [id number] [place] [address] May, [facility] [address] [id number] [place] [address] May, [facility] [address] [id number] [place] [address] Apr, [facility] [address] [id number] [place] [address] Apr, [facility] [address] [id number] [place] [address] March, [facility] [address] [id number] [place] [address] Feb, [facility] [address] [id number] [place] [address] Jan, [facility] [address] [id number] [place] [address] Jan, [facility] [address] [id number] [place] [address] Dec, [facility] [address] [place] [id number] [place] [address] Nov, [facility] [address] [place] [id number] [place] [address] Oct, [facility] [address] [id number] [place] [address] Oct, [facility] [address] [id number] [place] [address] 30 Sep, 2012 [facility] [address] [place] [id number] [place] [address] Sep, [facility] [address] [id number] [place] [address] 29 Sep, 2012 [facility] [address] [id number] [place] [address] 28 Sep, 2012 [facility] [address] [place] [id number] [place] [address] 13 Sep, 2012 [facility] [address] [id number] [place] [address] Sep, [facility] [address] [place] [id number] [place] [address] Sep, [facility] [address] [id number] [place] [address] Sep, [facility] [address] [id number] [place] [address] Jul, [facility] [address] [id number] [place] [address] Jun, [facility] [address] [id number] [place] [address] Jun, [facility] [address] [id number] [place] [address] Jun, [facility] [address] [id number] [place] [address] Jun, [facility] [address] [id number] [place] [address] May, [facility] [address] [place] [id number] [place] [address] Apr, [facility] [address] [id number] [place] [address] Jan, [facility] [address] [place] [id number] [place] [address] Dec, [facility] [address] [id number] [place] [address] Dec, [facility] [address] [id number] [place] [address] Nov, [facility] [address] [id number] [place] [address] Oct, [facility] [address] [id number] [place] [address] Oct, [facility] [address] [place] [id number] [place] [address] Aug, [facility] [address] [id number] [place] [address] Aug, [facility] [address] [place] [id number] [place] [address] 18 Aug, 2011 [facility] [address] [id number] [place] [address] 14 Aug, 2011 [facility] [address] [id number] [place] [address] 11 Aug, 2011 [facility] [address] [id number] [place] [address] 11 Aug, 2011 [facility] [address] [id number] [place] [address] 19 May, 2011 [facility] [address] [id number] [place] [address] 13 Apr, 2011 [facility] [address] [id number] [place] [address] 18 Feb, 2011 [facility] [address] [id number] [place] [address] 28 Oct, 2010 [facility] [address] [id number] [place] [address] 21 Oct, 2010 [facility] [address] [id number] [place] [address] 07 Oct, 2010 [facility] [address] [id number] [place] [address] 09 Sep, 2010 [facility] [address] [id number] [place] [address] 26 Aug, 2010 [facility] [address] [id number] [place] [address] 16 Jul, 2010 [facility] [address] [id number] [place] [address] 13 May, 2010 [facility] [address] [id number] [place] [address] Dec, [facility] [address] [id number] [place] [address] Nov, [facility] [address] [id number] [place] [address] 14 Oct, 2009 [facility] [address] [id number] [place] [address] Sep, [facility] [address] [id number] [place] [address] Sep, [facility] [address] [id number] [place] [address] Jul, [facility] [address] [id number] [place] [address] Jun, [facility] [address] [id number] [place] [address] May, IMMUNIZATIONS No Known Immunizations SOCIAL HISTORY [...]
--- OUTSIDE RECORDS SUMMARY | 2020-06-11 20:53 | XMS REPORT ---
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 Name Role Phone PAULA ROBLEDO Unavailable PROBLEMS Type Condition ICD9-CM Code [id number]-AP Code Onset Dates Condition S tatus SNOMED Code Problem Raynauds disease I73.00 Active 195 819371 Problem Venous insufficiency I87.2 Active 26174922 Problem Other chronic pain G89.29 Active 8 0614577 Problem Hypokalemia E87.6 Active 52812659 Problem Prediabetes R73.03 Active 90055883 2 Problem Low back pain M54.5 Active 546613 009 Problem Congenital deafness H90.5 Active 99051963 Problem Dysthymia F34.1 Active 61268831 Problem Neuropathy G62.9 Active [id number] ALLERGIES No Information ENCOUNTERS Encounter Location Date Diagnosis [facility] [address] [address] 14 Dec, 2019 Neuropathy G62.9 [facility] [address] [address] Nov, Raynauds disease I73.00 ; Venous insuffi ciency I87.2 ; Prediabetes R73.03 and Neuropathy G62.9 [facility] [id number] [place] [address] Jun, Congenital deafness H90.5 [facility] [address] [address] Jun, Other chronic pain G89.29 [facility] [address] [address] Jun, Acute kidney injury N17.9 [facility] [address] [facility] [id number] [place] [address] Jan, Abscess of left knee L02.416 [place] [address] [address] Jan, Prediabetes R73.03 ; Raynauds disease I7 3.00 and Venous insufficiency I87.2 [place] [address] [address] Oct, Neuropathy G62.9 ; Low back pain M54.5 a nd URI (upper respiratory infection) J06.9 [place] [address] [address] Jul, Raynauds disease I73.00 and Hypokalemia E87.6 [place] [address] [address] May, Medicare annual wellness visit, initial Z00.00 ; Dysthymia F34.1 ; Raynauds disease I73.00 ; Venous insufficiency I87.2 ; Congenital deafness H90.5 and Neuropathy G62.9 [place] [address] [address] Apr, [place] [address] [address] Apr, Prediabetes R73.03 ; Raynauds disease I7 3.00 ; Venous insufficiency I87.2 ; Neuropathy G62.9 and Dysthymia F34.1 [place] [address] [address] March, [place] [address] [address] Sep, Hyperglycemia R73.9 [place] [address] [address] Sep, Hyperglycemia R73.9 [place] [address] [address] Sep, Raynauds disease I73.00 ; Venous insuffi ciency I87.2 and Encounter for immunization Z23 [place] [address] [address] Jun, [place] [address] [address] May, [place] [address] [address] May, Other chronic pain G89.29 [place] [address] [address] May, Raynauds disease I73.00 ; Venous insuffi ciency I87.2 and Low back pain M54.5 [place] [address] [address] Dec, Raynauds disease I73.00 ; Venous insuffi ciency I87.2 ; Low back pain M54.5 and Other chronic pain G89.29 [place] [address] [address] Nov, [place] [address] [address] Nov, Muscle spasm M62.838 [facility] [address] [id number] [address] [place] [address] Nov, [place] [address] [address] Oct, Folliculitis L73.9 and Venous insufficie ncy I87.2 [place] [address] [address] Sep, Dermatitis L30.9 and Raynauds disease I7 3.00 [facility] [id number] [address] [place] [address] Sep, Rash and nonspecific skin er uption R21 [place] [address] [address] Aug, Skin infection L08.9 [facility] [address] [address] May, Infected smith L08.9 [facility] [address] [address] May, Skin infection L08.9 [facility] [address] [address] Dec, [facility] [address] [address] Nov, [facility] [address] [address] Nov, [facility] [address] [address] Nov, Raynauds disease I73.00 [place] [address] [address] Nov, Raynauds disease I73.00 ; Leg cramps R25 .2 ; Venous insufficiency I87.2 and Routine adult health maintenance Z00.00 [place] [address] [address] Jul, Infected sebaceous cyst 706.2 [facility] [address] [address] Jun, [facility] [address] [address] Jun, [facility] [address] [address] Jun, Venous insufficiency 459.81 and Raynauds disease 443.0 [facility] [address] [address] Feb, [facility] [address] [address] Feb, [facility] [address] [address] Jan, [facility] [address] [id number] [place] [address] Jan, [facility] [address] [id number] [place] [address] Dec, [facility] [address] [id number] [place] [address] Dec, [facility] [address] [id number] [place] [address] Dec, [facility] [address] [id number] [place] [address] Dec, [facility] [address] [id number] [place] [address] Nov, [facility] [address] [id number] [place] [address] Nov, [facility] [address] [id number] [place] [address] Oct, [facility] [address] [id number] [place] [address] Oct, [facility] [address] [id number] [place] [address] Aug, [facility] [address] [id number] [place] [address] Aug, [facility] [address] [id number] [place] [address] Aug, [facility] [address] [id number] [place] [address] Jul, 2013 [facility] [address] [id number] [place] [address] Jul, 2013 [facility] [address] [id number] [place] [address] Jul, 2013 [facility] [address] [id number] [place] [address] Jul, 2013 [facility] [address] [id number] [place] [address] Jun, [facility] [address] [id number] [facility] [address] Jun, [facility] [address] [facility] [id number] [place] [address] Jun, [facility] [address] [id number] [place] [address] Jun, [facility] [address] [facility] [id number] [place] [address] May, [facility] [address] [facility] [id number] [place] [address] May, [facility] [address] [id number] [place] [address] May, [facility] [address] [id number] [place] [address] May, [facility] [address] [id number] [place] [address] May, [facility] [address] [facility] [id number] [place] [address] May, [facility] [address] [id number] [place] [address] May, [facility] [address] [id number] [place] [address] Apr, [facility] [address] [id number] [place] [address] Apr, [facility] [address] [facility] [id number] [place] [address] Apr, [facility] [address] [id number] [place] [address] Apr, [facility] [address] [id number] [place] [address] March, [facility] [address] [id number] [place] [address] March, [facility] [address] [id number] [place] [address] March, [facility] [address] [id number] [place] [address] March, [facility] [address] [id number] [place] [address] March, [facility] [address] [id number] [place] [address] March, [facility] [address] [id number] [place] [address] March, [facility] [address] [id number] [place] [address] Feb, [facility] [address] [id number] [place] [address] Feb, [address] [id number] Feb, [facility] [address] [id number] [place] [address] Feb, [facility] [address] [id number] [place] [address] Feb, [facility] [address] [id number] [place] [address] Feb, [facility] [address] [id number] [place] [address] Jan, [facility] [address] [id number] [place] [address] Jan, [facility] [address] [id number] [place] [address] Jan, [facility] [address] [id number] [place] [address] Jan, [facility] [address] [id number] [place] [address] Jan, [facility] [address] [id number] [place] [address] Jan, [facility] [address] [id number] [place] [address] Jan, [facility] [address] [id number] [place] [address] Jan, [facility] [address] [id number] [place] [address] Jan, [facility] [address] [id number] [place] [address] Jan, [facility] [address] [facility] [id number] [place] [address] Jan, [facility] [address] [id number] [place] [address] Jan, [facility] [address] [id number] [place] [address] Jan, [facility] [address] [id number] [place] [address] Jan, [facility] [address] [id number] [place] [address] Jan, [facility] [address] [id number] [place] [address] Jan, [facility] [address] [id number] [place] [address] Jan, [facility] [address] [id number] [place] [address] Jan, [facility] [address] [id number] [place] [address] Dec, [facility] [address] [id number] [place] [address] Dec, [facility] [address] [id number] [place] [address] Dec, [facility] [address] [id number] [place] [address] Dec, [facility] [address] [id number] [place] [address] 14 Dec, 2013 [facility] [address] [id number] [place] [address] Dec, [facility] [address] [id number] [place] [address] Dec, [facility] [address] [id number] [place] [address] Dec, [facility] [address] [id number] [place] [address] Dec, [facility] [address] [id number] [place] [address] Dec, [facility] [address] [id number] [place] [address] Dec, [facility] [address] [id number] [place] [address] Dec, [facility] [address] [id number] [place] [address] Nov, [facility] [address] [id number] [place] [address] Nov, [facility] [address] [id number] [place] [address] Nov, [facility] [address] [id number] [place] [address] Nov, [facility] [address] [id number] [place] [address] Nov, [facility] [address] [id number] [place] [address] Nov, [facility] [id number] [place] [address] Nov, [facility] [address] [id number] [place] [address] Oct, [facility] [address] [id number] [place] [address] Oct, [facility] [address] [id number] [place] [address] Sep, [facility] [address] [id number] [place] [address] Sep, [facility] [address] [id number] [place] [address] Sep, [facility] [address] [id number] [place] [address] Sep, [facility] [address] [id number] [place] [address] Aug, [facility] [address] [id number] [place] [address] Aug, [facility] [address] [id number] [place] [address] Aug, [facility] [address] [id number] [place] [address] Jul, [facility] [address] [id number] [place] [address] Jul, [facility] [address] [id number] [place] [address] Jun, [facility] [address] [id number] [place] [address] Jun, [facility] [address] [id number] [place] [address] Jun, [facility] [address] [id number] [place] [address] May, [facility] [address] [id number] [place] [address] May, [facility] [address] [id number] [place] [address] May, [facility] [address] [id number] [place] [address] Apr, [facility] [address] [id number] [place] [address] Apr, [facility] [address] [id number] [place] [address] March, [facility] [address] [id number] [place] [address] Feb, [facility] [address] [id number] [place] [address] Jan, [facility] [address] [id number] [place] [address] Jan, [facility] [address] [id number] [place] [address] Dec, [facility] [address] [id number] [place] [address] Nov, [facility] [address] [id number] [place] [address] Oct, [facility] [id number] [place] [address] Oct, [facility] [address] [id number] [place] [address] Sep, [facility] [id number] [place] [address] Sep, [facility] [address] [id number] [place] [address] Sep, [facility] [id number] [place] [address] Sep, [facility] [address] [id number] [place] [address] Sep, [facility] [id number] [place] [address] Sep, [facility] [address] [id number] [place] [address] Sep, [facility] [id number] [place] [address] Sep, [facility] [address] [id number] [place] [address] Jul, [facility] [address] [id number] [place] [address] Jun, [facility] [address] [id number] [place] [address] Jun, [facility] [address] [id number] [place] [address] Jun, [facility] [address] [id number] [place] [address] Jun, [facility] [address] [id number] [place] [address] May, [facility] [address] [id number] [place] [address] Apr, [facility] [id number] [place] [address] Jan, [facility] [address] [id number] [place] [address] Dec, [facility] [address] [id number] [place] [address] Dec, [facility] [id number] [place] [address] Nov, [facility] [id number] [place] [address] Oct, [facility] [address] [id number] [place] [address] 19 Oct, 2011 [facility] [address] [id number] [place] [address] 18 Aug, 2011 [facility] [id number] [place] [address] 18 Aug, 2011 [facility] [address] [id number] [place] [address] 18 Aug, 2011 [facility] [id number] [place] [address] 14 Aug, 2011 [facility] [address] [facility] [id number] [place] [address] 11 Aug, 2011 [facility] [address] [id number] [place] [address] 11 Aug, 2011 [facility] [address] [id number] [place] [address] 19 May, 2011 [facility] [address] [id number] [place] [address] 13 Apr, 2011 [facility] [address] [id number] [place] [address] 18 Feb, 2011 [facility] [address] [id number] [place] [address] Oct, [facility] [address] [id number] [place] [address] Oct, [facility] [address] [id number] [place] [address] Oct, [facility] [address] [id number] [place] [address] Sep, [facility] [address] [id number] [place] [address] 26 Aug, 2010 [facility] [address] [id number] [place] [address] 16 Jul, 2010 [facility] [address] [id number] [place] [address] 13 May, 2010 [facility] [address] [id number] [place] [address] Dec, [facility] [address] [id number] [place] [address] Nov, [facility] [address] [id number] [place] [address] 14 Oct, 2009 [facility] [address] [id number] [place] [address] Sep, [facility] [address] [id number] [place] [address] Sep, [facility] [address] [id number] [place] [address] Jul, [facility] [address] [id number] [place] [address] Jun, [facility] [address] [id number] [place] [address] May, IMMUNIZATIONS No Known Immunizations SOCIAL HISTORY [...]
--- OUTSIDE RECORDS SUMMARY | 2020-06-11 20:53 | XMS REPORT ---
Author Author Jd ROBLEDO Organization [facility] Address [address] [place] [address] Care Team Providers Care Class C Driver Name Role Phone PAULA ROBLEDO Unavailable PROBLEMS Type Condition ICD9-CM Code YQT22-GO Code Onset Dates Condition S tatus SNOMED Code Problem Raynauds disease I73.00 Active 195 270432 Problem Venous insufficiency I87.2 Active 79337776 Problem Other chronic pain G89.29 Active 8 4449787 Problem Hypokalemia E87.6 Active 71636056 Problem Prediabetes R73.03 Active 24383759 2 Problem Low back pain M54.5 Active 240295 009 Problem Congenital deafness H90.5 Active 03248550 Problem Dysthymia F34.1 Active 07174136 Problem Neuropathy G62.9 Active [id number] ALLERGIES No Information ENCOUNTERS Encounter Location Date Diagnosis [place] [address] [address] Jan, Neuropathy G62.9 [place] [address] [address] Dec, Neuropathy G62.9 [place] [address] [address] Nov, Raynauds disease I73.00 ; Venous insuffi ciency I87.2 ; Prediabetes R73.03 and Neuropathy G62.9 [place] [address] [address] Jun, Congenital deafness H90.5 [place] [address] [address] Jun, Other chronic pain G89.29 [place] [address] [address] Jun, Acute kidney injury N17.9 [facility] [address] [facility] [id number] [address] [place] [address] Jan, Abscess of left knee L02.416 [facility] [address] [address] Jan, Prediabetes R73.03 ; Raynauds disease I7 3.00 and Venous insufficiency I87.2 [place] [address] [address] Oct, Neuropathy G62.9 ; Low back pain M54.5 a nd URI (upper respiratory infection) J06.9 [place] [address] [address] Jul, Raynauds disease I73.00 and Hypokalemia E87.6 [place] [address] [address] May, Medicare annual wellness visit, initial Z00.00 ; Dysthymia F34.1 ; Raynauds disease I73.00 ; Venous insufficiency I87.2 ; Congenital deafness H90.5 and Neuropathy G62.9 [place] [address] [address] Apr, [place] [address] [address] Apr, Prediabetes R73.03 ; Raynauds disease I7 3.00 ; Venous insufficiency I87.2 ; Neuropathy G62.9 and Dysthymia F34.1 [place] [address] [address] March, [place] [address] [address] Sep, Hyperglycemia R73.9 [place] [address] [address] 07 Sep, 2017 Hyperglycemia R73.9 [place] [address] [address] Sep, Raynauds disease I73.00 ; Venous insuffi ciency I87.2 and Encounter for immunization Z23 [place] [address] [address] Jun, [place] [address] [address] May, [place] [address] [address] May, Other chronic pain G89.29 [place] [address] [address] May, Raynauds disease I73.00 ; Venous insuffi ciency I87.2 and Low back pain M54.5 [place] [address] [address] Dec, Raynauds disease I73.00 ; Venous insuffi ciency I87.2 ; Low back pain M54.5 and Other chronic pain G89.29 [place] [address] [address] Nov, [place] [address] [address] Nov, Muscle spasm M62.838 [facility] [address] [place] [address] Nov, [facility] [address] [address] 15 Oct, 2016 Folliculitis L73.9 and Venous insufficie ncy I87.2 [place] [address] [address] 17 Sep, 2016 Dermatitis L30.9 and Raynauds disease I7 3.00 [facility] [address] [place] [id number] [place] [address] 13 Sep, 2016 Rash and nonspecific skin er uption R21 [facility] [address] [address] Aug, Skin infection L08.9 [facility] [address] [address] May, Infected smith L08.9 [facility] [address] [address] May, Skin infection L08.9 [facility] [address] [address] Dec, [facility] [address] [address] Nov, [facility] [address] [address] Nov, [facility] [address] [address] Nov, Raynauds disease I73.00 [facility] [address] [address] Nov, Raynauds disease I73.00 ; Leg cramps R25 .2 ; Venous insufficiency I87.2 and Routine adult health maintenance Z00.00 [facility] [address] [address] Jul, Infected sebaceous cyst 706.2 [facility] [address] [address] Jun, [facility] [address] [address] Jun, [facility] [address] [address] Jun, Venous insufficiency 459.81 and Raynauds disease 443.0 [facility] [address] [address] Feb, [facility] [address] [address] Feb, [facility] [address] [id number] [place] [address] Jan, [facility] [address] [id number] [place] [address] Jan, [facility] [address] [id number] [place] [address] Dec, [facility] [address] [id number] [place] [address] Dec, [facility] [address] [id number] [place] [address] Dec, [facility] [address] [id number] [place] [address] Dec, [facility] [address] [id number] [place] [address] Nov, [facility] [address] [id number] [place] [address] Nov, [facility] [address] [id number] [place] [address] Oct, [facility] [address] [id number] [place] [address] Oct, [facility] [address] [id number] [place] [address] Aug, [facility] [address] [id number] [place] [address] Aug, [facility] [address] [id number] [place] [address] Aug, [facility] [address] [id number] [place] [address] Jul, [facility] [address] [id number] [place] [address] Jul, [facility] [address] [id number] [place] [address] Jul, [facility] [address] [facility] [id number] [place] [address] Jul, [facility] [address] [facility] [id number] [place] [address] Jun, [facility] [address] [facility] [id number] [place] [address] Jun, [facility] [address] [id number] [place] [address] Jun, [facility] [address] [facility] [id number] [place] [address] Jun, [facility] [address] [facility] [id number] [place] [address] May, [facility] [address] [id number] [place] [address] May, [facility] [address] [id number] [place] [address] May, [facility] [address] [id number] [place] [address] May, [facility] [address] [facility] [id number] [place] [address] May, [facility] [address] [id number] [place] [address] May, [facility] [address] [id number] [place] [address] May, [facility] [address] [id number] [place] [address] Apr, [facility] [address] [facility] [id number] [place] [address] Apr, [facility] [address] [id number] [place] [address] Apr, [facility] [address] [id number] [place] [address] Apr, [facility] [address] [id number] [place] [address] March, [facility] [address] [id number] [place] [address] March, [facility] [address] [id number] [place] [address] March, [facility] [address] [id number] [place] [address] March, [facility] [address] [id number] [place] [address] March, [facility] [address] [id number] [place] [address] March, [facility] [address] [id number] [place] [address] March, [facility] [address] [id number] [place] [address] Feb, [facility] [address] [id number] [place] [address] Feb, [address] [id number] Feb, [facility] [address] [id number] [place] [address] Feb, [facility] [address] [id number] [place] [address] Feb, [facility] [address] [id number] [place] [address] Feb, [facility] [address] [id number] [place] [address] Jan, [facility] [address] [id number] [place] [address] Jan, [facility] [address] [id number] [place] [address] Jan, [facility] [address] [id number] [place] [address] Jan, [facility] [address] [id number] [place] [address] Jan, [facility] [address] [facility] [id number] [place] [address] Jan, [facility] [address] [facility] [id number] [place] [address] Jan, [facility] [address] [facility] [id number] [place] [address] Jan, [facility] [address] [facility] [id number] [place] [address] Jan, [facility] [address] [facility] [id number] [place] [address] Jan, [facility] [address] [id number] [place] [address] Jan, [facility] [address] [id number] [place] [address] Jan, [facility] [address] [id number] [place] [address] Jan, [facility] [address] [facility] [id number] [place] [address] Jan, [facility] [address] [id number] [place] [address] Jan, [facility] [address] [id number] [place] [address] Jan, [facility] [address] [id number] [place] [address] Jan, [facility] [address] [facility] [id number] [place] [address] Jan, [facility] [address] [facility] [id number] [place] [address] Dec, [facility] [address] [facility] [id number] [place] [address] Dec, [facility] [address] [id number] [place] [address] Dec, [facility] [address] [id number] [place] [address] 17 Dec, 2013 [facility] [address] [id number] [place] [address] Dec, [facility] [address] [id number] [place] [address] Dec, [facility] [address] [id number] [place] [address] Dec, [facility] [address] [id number] [place] [address] Dec, [facility] [address] [id number] [place] [address] Dec, [facility] [address] [id number] [place] [address] Dec, [facility] [address] [id number] [place] [address] Dec, [facility] [address] [id number] [place] [address] Dec, [facility] [address] [id number] [place] [address] Nov, [facility] [address] [id number] [place] [address] Nov, [facility] [address] [id number] [place] [address] Nov, [facility] [address] [id number] [place] [address] Nov, [facility] [address] [id number] [place] [address] Nov, [facility] [address] [id number] [place] [address] Nov, [facility] [address] [id number] [place] [address] Nov, [facility] [address] [id number] [place] [address] Oct, [facility] [address] [facility] [id number] [place] [address] Oct, [facility] [address] [id number] [place] [address] Sep, [facility] [address] [id number] [place] [address] Sep, [facility] [address] [id number] [place] [address] Sep, [facility] [address] [facility] [id number] [place] [address] Sep, [facility] [address] [id number] [place] [address] Aug, [facility] [address] [id number] [place] [address] Aug, [facility] [address] [id number] [place] [address] Aug, [facility] [address] [id number] [place] [address] Jul, [facility] [address] [id number] [place] [address] Jul, [facility] [address] [id number] [place] [address] Jun, [facility] [address] [id number] [place] [address] Jun, [facility] [address] [id number] [place] [address] Jun, [facility] [address] [id number] [place] [address] May, [facility] [address] [id number] [place] [address] May, [facility] [address] [id number] [place] [address] May, [facility] [address] [id number] [place] [address] Apr, [facility] [address] [id number] [place] [address] Apr, [facility] [address] [id number] [place] [address] March, [facility] [address] [id number] [place] [address] Feb, [facility] [address] [id number] [place] [address] Jan, [facility] [address] [id number] [place] [address] Jan, [facility] [address] [id number] [place] [address] Dec, [facility] [address] [place] [id number] [place] [address] Nov, [facility] [address] [place] [id number] [place] [address] Oct, [facility] [address] [id number] [place] [address] Oct, [facility] [address] [id number] [place] [address] 30 Sep, 2012 [facility] [address] [place] [id number] [place] [address] Sep, [facility] [address] [id number] [place] [address] 29 Sep, 2012 [facility] [address] [id number] [place] [address] 28 Sep, 2012 [facility] [address] [place] [id number] [place] [address] 13 Sep, 2012 [facility] [address] [id number] [place] [address] Sep, [facility] [address] [place] [id number] [place] [address] Sep, [facility] [address] [id number] [place] [address] Sep, [facility] [address] [id number] [place] [address] Jul, [facility] [address] [id number] [place] [address] Jun, [facility] [address] [id number] [place] [address] Jun, [facility] [address] [id number] [place] [address] Jun, [facility] [address] [id number] [place] [address] Jun, [facility] [address] [id number] [place] [address] May, [facility] [address] [place] [id number] [place] [address] Apr, [facility] [address] [id number] [place] [address] Jan, [facility] [address] [place] [id number] [place] [address] Dec, [facility] [address] [id number] [place] [address] Dec, [facility] [address] [id number] [place] [address] Nov, [facility] [address] [id number] [place] [address] Oct, [facility] [address] [id number] [place] [address] Oct, [facility] [address] [place] [id number] [place] [address] Aug, [facility] [address] [id number] [place] [address] Aug, [facility] [address] [place] [id number] [place] [address] 18 Aug, 2011 [facility] [address] [id number] [place] [address] 14 Aug, 2011 [facility] [address] [id number] [place] [address] 11 Aug, 2011 [facility] [address] [id number] [place] [address] 11 Aug, 2011 [facility] [address] [id number] [place] [address] 19 May, 2011 [facility] [address] [id number] [place] [address] 13 Apr, 2011 [facility] [address] [id number] [place] [address] 18 Feb, 2011 [facility] [address] [id number] [place] [address] 28 Oct, 2010 [facility] [address] [id number] [place] [address] 21 Oct, 2010 [facility] [address] [id number] [place] [address] 07 Oct, 2010 [facility] [address] [id number] [place] [address] 09 Sep, 2010 [facility] [address] [id number] [place] [address] 26 Aug, 2010 [facility] [address] [id number] [place] [address] 16 Jul, 2010 [facility] [address] [id number] [place] [address] 13 May, 2010 [facility] [address] [id number] [place] [address] Dec, [facility] [address] [id number] [place] [address] Nov, [facility] [address] [id number] [place] [address] 14 Oct, 2009 [facility] [address] [id number] [place] [address] Sep, [facility] [address] [id number] [place] [address] Sep, [facility] [address] [id number] [place] [address] Jul, [facility] [address] [id number] [place] [address] Jun, [facility] [address] [id number] [place] [address] May, IMMUNIZATIONS No Known Immunizations SOCIAL HISTORY [...]
--- OUTSIDE RECORDS SUMMARY | 2020-06-11 20:53 | XMS REPORT ---
Author Author Jd ROBLEDO Organization [facility] Address [address] [place] [address] Care Team Providers Care Appliance Assembler Name Role Phone PAULA ROBLEDO Unavailable PROBLEMS Type Condition ICD9-CM Code SYH82-AX Code Onset Dates Condition S tatus SNOMED Code Problem Raynauds disease I73.00 Active 195 756158 Problem Venous insufficiency I87.2 Active 10475743 Problem Other chronic pain G89.29 Active 8 8571607 Problem Hypokalemia E87.6 Active 75722088 Problem Prediabetes R73.03 Active 40134055 2 Problem Low back pain M54.5 Active 989872 009 Problem Congenital deafness H90.5 Active 53155979 Problem Dysthymia F34.1 Active 24384229 Problem Neuropathy G62.9 Active 787657168 ALLERGIES No Information ENCOUNTERS Encounter Location Date Diagnosis [facility] [address] [address] 14 Dec, 2019 Neuropathy G62.9 [facility] [address] [address] Nov, Raynauds disease I73.00 ; Venous insuffi ciency I87.2 ; Prediabetes R73.03 and Neuropathy G62.9 [facility] [id number] [place] [address] Jun, Congenital deafness H90.5 [facility] [address] [address] Jun, Other chronic pain G89.29 [facility] [address] [address] Jun, Acute kidney injury N17.9 [facility] [address] [facility] [id number] [place] [address] Jan, Abscess of left knee L02.416 [place] [address] [address] Jan, Prediabetes R73.03 ; Raynauds disease I7 3.00 and Venous insufficiency I87.2 [place] [address] [address] Oct, Neuropathy G62.9 ; Low back pain M54.5 a nd URI (upper respiratory infection) J06.9 [place] [address] [address] Jul, Raynauds disease I73.00 and Hypokalemia E87.6 [place] [address] [address] May, Medicare annual wellness visit, initial Z00.00 ; Dysthymia F34.1 ; Raynauds disease I73.00 ; Venous insufficiency I87.2 ; Congenital deafness H90.5 and Neuropathy G62.9 [place] [address] [address] Apr, [place] [address] [address] Apr, Prediabetes R73.03 ; Raynauds disease I7 3.00 ; Venous insufficiency I87.2 ; Neuropathy G62.9 and Dysthymia F34.1 [place] [address] [address] March, [place] [address] [address] Sep, Hyperglycemia R73.9 [place] [address] [address] Sep, Hyperglycemia R73.9 [place] [address] [address] Sep, Raynauds disease I73.00 ; Venous insuffi ciency I87.2 and Encounter for immunization Z23 [place] [address] [address] Jun, [place] [address] [address] May, [place] [address] [address] May, Other chronic pain G89.29 [place] [address] [address] May, Raynauds disease I73.00 ; Venous insuffi ciency I87.2 and Low back pain M54.5 [place] [address] [address] Dec, Raynauds disease I73.00 ; Venous insuffi ciency I87.2 ; Low back pain M54.5 and Other chronic pain G89.29 [place] [address] [address] Nov, [place] [address] [address] Nov, Muscle spasm M62.838 [facility] [address] [id number] [place] [address] Nov, [place] [address] [address] Oct, Folliculitis L73.9 and Venous insufficie ncy I87.2 [place] [address] [address] Sep, Dermatitis L30.9 and Raynauds disease I7 3.00 [facility] [address] [id number] [address] [place] [address] Sep, Rash and nonspecific skin er uption R21 [place] [address] [address] Aug, Skin infection L08.9 [facility] [address] [address] May, Infected smith L08.9 [facility] [address] [address] May, Skin infection L08.9 [facility] [address] [address] Dec, [facility] [address] [address] Nov, [facility] [address] [address] Nov, [facility] [address] [address] Nov, Raynauds disease I73.00 [place] [address] [address] Nov, Raynauds disease I73.00 ; Leg cramps R25 .2 ; Venous insufficiency I87.2 and Routine adult health maintenance Z00.00 [place] [address] [address] Jul, Infected sebaceous cyst 706.2 [facility] [address] [address] Jun, [facility] [address] [address] Jun, [facility] [address] [address] Jun, Venous insufficiency 459.81 and Raynauds disease 443.0 [facility] [address] [address] Feb, [facility] [address] [address] Feb, [facility] [address] [address] Jan, [facility] [address] [id number] [place] [address] Jan, [facility] [address] [id number] [place] [address] Dec, [facility] [address] [id number] [place] [address] Dec, [facility] [address] [id number] [place] [address] Dec, [facility] [address] [id number] [place] [address] Dec, [facility] [address] [id number] [place] [address] Nov, [facility] [address] [id number] [place] [address] Nov, [facility] [address] [id number] [place] [address] Oct, [facility] [address] [id number] [place] [address] Oct, [facility] [address] [id number] [place] [address] Aug, [facility] [address] [id number] [place] [address] Aug, [facility] [address] [id number] [place] [address] Aug, [facility] [address] [id number] [place] [address] Jul, 2013 [facility] [address] [id number] [place] [address] Jul, 2013 [facility] [address] [id number] [place] [address] Jul, 2013 [facility] [address] [id number] [place] [address] Jul, 2013 [facility] [address] [id number] [place] [address] Jun, [facility] [address] [id number] [place] [address] Jun, [facility] [address] [facility] [id number] [place] [address] Jun, [facility] [address] [id number] [place] [address] Jun, [facility] [address] [facility] [id number] [place] [address] May, [facility] [address] [facility] [id number] [place] [address] May, [facility] [address] [id number] [place] [address] May, [facility] [address] [id number] [place] [address] May, [facility] [address] [id number] [place] [address] May, [facility] [address] [facility] [id number] [place] [address] May, [facility] [address] [id number] [place] [address] May, [facility] [address] [id number] [place] [address] Apr, [facility] [address] [id number] [place] [address] Apr, [facility] [address] [facility] [id number] [place] [address] Apr, [facility] [address] [id number] [place] [address] Apr, [facility] [address] [id number] [place] [address] March, [facility] [address] [id number] [place] [address] March, [facility] [address] [id number] [place] [address] March, [facility] [address] [id number] [place] [address] March, [facility] [address] [id number] [place] [address] March, [facility] [address] [id number] [place] [address] March, [facility] [address] [id number] [place] [address] March, [facility] [address] [id number] [place] [address] Feb, [facility] [address] [id number] [place] [address] Feb, [address] [id number] Feb, [facility] [address] [id number] [place] [address] Feb, [facility] [address] [id number] [place] [address] Feb, [facility] [address] [id number] [place] [address] Feb, [facility] [address] [id number] [place] [address] Jan, [facility] [address] [id number] [place] [address] Jan, [facility] [address] [id number] [place] [address] Jan, [facility] [address] [id number] [place] [address] Jan, [facility] [address] [id number] [place] [address] Jan, [facility] [address] [id number] [place] [address] Jan, [facility] [address] [id number] [place] [address] Jan, [facility] [address] [id number] [place] [address] Jan, [facility] [address] [id number] [place] [address] Jan, [facility] [address] [id number] [place] [address] Jan, [facility] [address] [facility] [id number] [place] [address] Jan, [facility] [address] [id number] [place] [address] Jan, [facility] [address] [id number] [place] [address] Jan, [facility] [address] [id number] [place] [address] Jan, [facility] [address] [id number] [place] [address] Jan, [facility] [address] [id number] [place] [address] Jan, [facility] [address] [id number] [place] [address] Jan, [facility] [address] [id number] [place] [address] Jan, [facility] [address] [id number] [place] [address] Dec, [facility] [address] [id number] [place] [address] Dec, [facility] [address] [id number] [place] [address] Dec, [facility] [address] [id number] [place] [address] Dec, [facility] [address] [id number] [place] [address] 14 Dec, 2013 [facility] [address] [id number] [place] [address] Dec, [facility] [address] [id number] [place] [address] Dec, [facility] [address] [id number] [place] [address] Dec, [facility] [address] [id number] [place] [address] Dec, [facility] [address] [id number] [place] [address] Dec, [facility] [address] [id number] [place] [address] Dec, [facility] [address] [id number] [place] [address] Dec, [facility] [address] [id number] [place] [address] Nov, [facility] [address] [id number] [place] [address] Nov, [facility] [address] [id number] [place] [address] Nov, [facility] [address] [id number] [place] [address] Nov, [facility] [address] [id number] [place] [address] Nov, [facility] [address] [id number] [place] [address] Nov, [facility] [id number] [place] [address] Nov, [facility] [address] [id number] [place] [address] Oct, [facility] [address] [id number] [place] [address] Oct, [facility] [address] [id number] [place] [address] Sep, [facility] [address] [id number] [place] [address] Sep, [facility] [address] [id number] [place] [address] Sep, [facility] [address] [id number] [place] [address] Sep, [facility] [address] [id number] [place] [address] Aug, [facility] [address] [id number] [place] [address] Aug, [facility] [address] [id number] [place] [address] Aug, [facility] [address] [id number] [place] [address] Jul, [facility] [address] [id number] [place] [address] Jul, [facility] [address] [id number] [place] [address] Jun, [facility] [address] [id number] [place] [address] Jun, [facility] [address] [id number] [place] [address] Jun, [facility] [address] [id number] [place] [address] May, [facility] [address] [id number] [place] [address] May, [facility] [address] [id number] [place] [address] May, [facility] [address] [id number] [place] [address] Apr, [facility] [address] [id number] [place] [address] Apr, [facility] [address] [id number] [place] [address] March, [facility] [address] [id number] [place] [address] Feb, [facility] [address] [id number] [place] [address] Jan, [facility] [address] [id number] [place] [address] Jan, [facility] [address] [id number] [place] [address] Dec, [facility] [address] [id number] [place] [address] Nov, [facility] [address] [id number] [place] [address] Oct, [facility] [id number] [place] [address] Oct, [facility] [address] [id number] [place] [address] Sep, [facility] [id number] [place] [address] Sep, [facility] [address] [id number] [place] [address] Sep, [facility] [id number] [place] [address] Sep, [facility] [address] [id number] [place] [address] Sep, [facility] [id number] [place] [address] Sep, [facility] [address] [id number] [place] [address] Sep, [facility] [id number] [place] [address] Sep, [facility] [address] [id number] [place] [address] Jul, [facility] [address] [id number] [place] [address] Jun, [facility] [address] [id number] [place] [address] Jun, [facility] [address] [id number] [place] [address] Jun, [facility] [address] [id number] [place] [address] Jun, [facility] [address] [id number] [place] [address] May, [facility] [address] [id number] [place] [address] Apr, [facility] [id number] [place] [address] Jan, [facility] [address] [id number] [place] [address] Dec, [facility] [address] [id number] [place] [address] Dec, [facility] [id number] [place] [address] Nov, [facility] [id number] [place] [address] Oct, [facility] [address] [id number] [place] [address] 19 Oct, 2011 [facility] [address] [id number] [place] [address] 18 Aug, 2011 [facility] [id number] [place] [address] 18 Aug, 2011 [facility] [address] [id number] [place] [address] 18 Aug, 2011 [facility] [id number] [place] [address] 14 Aug, 2011 [facility] [address] [facility] [id number] [place] [address] 11 Aug, 2011 [facility] [address] [id number] [place] [address] 11 Aug, 2011 [facility] [address] [id number] [place] [address] 19 May, 2011 [facility] [address] [id number] [place] [address] 13 Apr, 2011 [facility] [address] [id number] [place] [address] 18 Feb, 2011 [facility] [address] [id number] [place] [address] Oct, [facility] [address] [id number] [place] [address] Oct, [facility] [address] [id number] [place] [address] Oct, [facility] [address] [id number] [place] [address] Sep, [facility] [address] [id number] [place] [address] 26 Aug, 2010 [facility] [address] [id number] [place] [address] 16 Jul, 2010 [facility] [address] [id number] [place] [address] 13 May, 2010 [facility] [address] [id number] [place] [address] Dec, [facility] [address] [id number] [place] [address] Nov, [facility] [address] [id number] [place] [address] 14 Oct, 2009 [facility] [address] [id number] [place] [address] Sep, [facility] [address] [id number] [place] [address] Sep, [facility] [address] [id number] [place] [address] Jul, [facility] [address] [id number] [place] [address] Jun, [facility] [address] [id number] [place] [address] May, IMMUNIZATIONS No Known Immunizations SOCIAL HISTORY Never Assessed REASON FOR VISIT PLAN OF CARE VITAL SIGNS MEDICATIONS Unknown Medications RESULTS No Results PROCEDURES Procedure Date Ordered Result Body Site HEPATIC FUNCTION PANEL February 15, 2014 VENIPUNCT, ROUTINE* February 15, 2014 INSTRUCTIONS MEDICATIONS ADMINISTERED No Known Medications [...]
--- OUTSIDE RECORDS SUMMARY | 2020-06-11 20:53 | XMS REPORT ---
Author Author Jd ROBLEDO Organization [facility] Address [address] [place] [address] Care Team Providers Care Electrician Control Equipment Name Role Phone PAULA ROBLEDO Unavailable PROBLEMS Type Condition ICD9-CM Code [id number] Code Onset Dates Condition S tatus SNOMED Code Problem Raynauds disease I73.00 Active 195 900737 Problem Venous insufficiency I87.2 Active 29313690 Problem Other chronic pain G89.29 Active 8 2611887 Problem Hypokalemia E87.6 Active 29124842 Problem Prediabetes R73.03 Active 99651537 2 Problem Low back pain M54.5 Active 829605 009 Problem Congenital deafness H90.5 Active 17109281 Problem Dysthymia F34.1 Active 31729967 Problem Neuropathy G62.9 Active [id number] ALLERGIES No Information ENCOUNTERS Encounter Location Date Diagnosis [facility] [address] [address] 14 Dec, 2019 Neuropathy G62.9 [facility] [address] [address] Nov, Raynauds disease I73.00 ; Venous insuffi ciency I87.2 ; Prediabetes R73.03 and Neuropathy G62.9 [facility] [id number] [place] [address] Jun, Congenital deafness H90.5 [facility] [address] [address] Jun, Other chronic pain G89.29 [facility] [address] [address] Jun, Acute kidney injury N17.9 [facility] [address] [facility] [id number] [place] [address] Jan, Abscess of left knee L02.416 [place] [address] [address] Jan, Prediabetes R73.03 ; Raynauds disease I7 3.00 and Venous insufficiency I87.2 [place] [address] [address] Oct, Neuropathy G62.9 ; Low back pain M54.5 a nd URI (upper respiratory infection) J06.9 [place] [address] [address] Jul, Raynauds disease I73.00 and Hypokalemia E87.6 [place] [address] [address] May, Medicare annual wellness visit, initial Z00.00 ; Dysthymia F34.1 ; Raynauds disease I73.00 ; Venous insufficiency I87.2 ; Congenital deafness H90.5 and Neuropathy G62.9 [place] [address] [address] Apr, [place] [address] [address] Apr, Prediabetes R73.03 ; Raynauds disease I7 3.00 ; Venous insufficiency I87.2 ; Neuropathy G62.9 and Dysthymia F34.1 [place] [address] [address] March, [place] [address] [address] Sep, Hyperglycemia R73.9 [place] [address] [address] Sep, Hyperglycemia R73.9 [place] [address] [address] Sep, Raynauds disease I73.00 ; Venous insuffi ciency I87.2 and Encounter for immunization Z23 [place] [address] [address] Jun, [place] [address] [address] May, [place] [address] [address] May, Other chronic pain G89.29 [place] [address] [address] May, Raynauds disease I73.00 ; Venous insuffi ciency I87.2 and Low back pain M54.5 [place] [address] [address] Dec, Raynauds disease I73.00 ; Venous insuffi ciency I87.2 ; Low back pain M54.5 and Other chronic pain G89.29 [place] [address] [address] Nov, [place] [address] [address] Nov, Muscle spasm M62.838 [facility] [id number] [place] [address] Nov, [place] [address] [address] Oct, Folliculitis L73.9 and Venous insufficie ncy I87.2 [place] [address] [address] Sep, Dermatitis L30.9 and Raynauds disease I7 3.00 [facility] [id number] [place] [address] Sep, Rash and nonspecific skin er uption R21 [place] [address] [address] Aug, Skin infection L08.9 [facility] [address] [address] May, Infected smith L08.9 [facility] [address] [address] May, Skin infection L08.9 [facility] [address] [address] Dec, [facility] [address] [address] Nov, [facility] [address] [address] Nov, [facility] [address] [address] Nov, Raynauds disease I73.00 [place] [address] [address] Nov, Raynauds disease I73.00 ; Leg cramps R25 .2 ; Venous insufficiency I87.2 and Routine adult health maintenance Z00.00 [place] [address] [address] Jul, Infected sebaceous cyst 706.2 [facility] [address] [address] Jun, [facility] [address] [address] Jun, [facility] [address] [address] Jun, Venous insufficiency 459.81 and Raynauds disease 443.0 [facility] [address] [address] Feb, [facility] [address] [address] Feb, [facility] [address] [address] Jan, [facility] [address] [id number] [place] [address] Jan, [facility] [address] [id number] [place] [address] Dec, [facility] [address] [id number] [place] [address] Dec, [facility] [address] [id number] [place] [address] Dec, [facility] [address] [id number] [place] [address] Dec, [facility] [address] [id number] [place] [address] Nov, [facility] [address] [id number] [place] [address] Nov, [facility] [address] [id number] [place] [address] Oct, [facility] [address] [id number] [place] [address] Oct, [facility] [address] [id number] [place] [address] Aug, [facility] [address] [id number] [place] [address] Aug, [facility] [address] [id number] [place] [address] Aug, [facility] [address] [id number] [place] [address] Jul, 2013 [facility] [address] [id number] [place] [address] Jul, 2013 [facility] [address] [id number] [place] [address] Jul, 2013 [facility] [address] [id number] [place] [address] Jul, 2013 [facility] [address] [id number] [place] [address] Jun, [facility] [address] [id number] [facility] [place] [address] Jun, [facility] [address] [facility] [id number] [place] [address] Jun, [facility] [address] [id number] [place] [address] Jun, [facility] [address] [facility] [id number] [place] [address] May, [facility] [address] [facility] [id number] [place] [address] May, [facility] [address] [id number] [place] [address] May, [facility] [address] [id number] [place] [address] May, [facility] [address] [id number] [place] [address] May, [facility] [address] [facility] [id number] [place] [address] May, [facility] [address] [id number] [place] [address] May, [facility] [address] [id number] [place] [address] Apr, [facility] [address] [id number] [place] [address] Apr, [facility] [address] [facility] [id number] [place] [address] Apr, [facility] [address] [id number] [place] [address] Apr, [facility] [address] [id number] [place] [address] March, [facility] [address] [id number] [place] [address] March, [facility] [address] [id number] [place] [address] March, [facility] [address] [id number] [place] [address] March, [facility] [address] [id number] [place] [address] March, [facility] [address] [id number] [place] [address] March, [facility] [address] [id number] [place] [address] March, [facility] [address] [id number] [place] [address] Feb, [facility] [address] [id number] [place] [address] Feb, [address] [id number] Feb, [facility] [address] [id number] [place] [address] Feb, [facility] [address] [id number] [place] [address] Feb, [facility] [address] [id number] [place] [address] Feb, [facility] [address] [id number] [place] [address] Jan, [facility] [address] [id number] [place] [address] Jan, [facility] [address] [id number] [place] [address] Jan, [facility] [address] [id number] [place] [address] Jan, [facility] [address] [id number] [place] [address] Jan, [facility] [address] [id number] [place] [address] Jan, [facility] [address] [id number] [place] [address] Jan, [facility] [address] [id number] [place] [address] Jan, [facility] [address] [id number] [place] [address] Jan, [facility] [address] [id number] [place] [address] Jan, [facility] [address] [facility] [id number] [place] [address] Jan, [facility] [address] [id number] [place] [address] Jan, [facility] [address] [id number] [place] [address] Jan, [facility] [address] [id number] [place] [address] Jan, [facility] [address] [id number] [place] [address] Jan, [facility] [address] [id number] [place] [address] Jan, [facility] [address] [id number] [place] [address] Jan, [facility] [address] [id number] [place] [address] Jan, [facility] [address] [id number] [place] [address] Dec, [facility] [address] [id number] [place] [address] Dec, [facility] [address] [id number] [place] [address] Dec, [facility] [address] [id number] [place] [address] Dec, [facility] [address] [id number] [place] [address] 14 Dec, 2013 [facility] [address] [id number] [place] [address] Dec, [facility] [address] [id number] [place] [address] Dec, [facility] [address] [id number] [place] [address] Dec, [facility] [address] [id number] [place] [address] Dec, [facility] [address] [id number] [place] [address] Dec, [facility] [address] [id number] [place] [address] Dec, [facility] [address] [id number] [place] [address] Dec, [facility] [address] [id number] [place] [address] Nov, [facility] [address] [id number] [place] [address] Nov, [facility] [address] [id number] [place] [address] Nov, [facility] [address] [id number] [place] [address] Nov, [facility] [address] [id number] [place] [address] Nov, [facility] [address] [id number] [place] [address] Nov, [facility] [id number] [place] [address] Nov, [facility] [address] [id number] [place] [address] Oct, [facility] [address] [id number] [place] [address] Oct, [facility] [address] [id number] [place] [address] Sep, [facility] [address] [id number] [place] [address] Sep, [facility] [address] [id number] [place] [address] Sep, [facility] [address] [id number] [place] [address] Sep, [facility] [address] [id number] [place] [address] Aug, [facility] [address] [id number] [place] [address] Aug, [facility] [address] [id number] [place] [address] Aug, [facility] [address] [id number] [place] [address] Jul, [facility] [address] [id number] [place] [address] Jul, [facility] [address] [id number] [place] [address] Jun, [facility] [address] [id number] [place] [address] Jun, [facility] [address] [id number] [place] [address] Jun, [facility] [address] [id number] [place] [address] May, [facility] [address] [id number] [place] [address] May, [facility] [address] [id number] [place] [address] May, [facility] [address] [id number] [place] [address] Apr, [facility] [address] [id number] [place] [address] Apr, [facility] [address] [id number] [place] [address] March, [facility] [address] [id number] [place] [address] Feb, [facility] [address] [id number] [place] [address] Jan, [facility] [address] [id number] [place] [address] Jan, [facility] [address] [id number] [place] [address] Dec, [facility] [address] [id number] [place] [address] Nov, [facility] [address] [id number] [place] [address] Oct, [facility] [id number] [place] [address] Oct, [facility] [address] [id number] [place] [address] Sep, [facility] [id number] [place] [address] Sep, [facility] [address] [id number] [place] [address] Sep, [facility] [id number] [place] [address] Sep, [facility] [address] [id number] [place] [address] Sep, [facility] [id number] [place] [address] Sep, [facility] [address] [id number] [place] [address] Sep, [facility] [id number] [place] [address] Sep, [facility] [address] [id number] [place] [address] Jul, [facility] [address] [id number] [place] [address] Jun, [facility] [address] [id number] [place] [address] Jun, [facility] [address] [id number] [place] [address] Jun, [facility] [address] [id number] [place] [address] Jun, [facility] [address] [id number] [place] [address] May, [facility] [address] [id number] [place] [address] Apr, [facility] [id number] [place] [address] Jan, [facility] [address] [id number] [place] [address] Dec, [facility] [address] [id number] [place] [address] Dec, [facility] [id number] [place] [address] Nov, [facility] [id number] [place] [address] Oct, [facility] [address] [id number] [place] [address] 19 Oct, 2011 [facility] [address] [id number] [place] [address] 18 Aug, 2011 [facility] [id number] [place] [address] 18 Aug, 2011 [facility] [address] [id number] [place] [address] 18 Aug, 2011 [facility] [id number] [place] [address] 14 Aug, 2011 [facility] [address] [facility] [id number] [place] [address] 11 Aug, 2011 [facility] [address] [id number] [place] [address] 11 Aug, 2011 [facility] [address] [id number] [place] [address] 19 May, 2011 [facility] [address] [id number] [place] [address] 13 Apr, 2011 [facility] [address] [id number] [place] [address] 18 Feb, 2011 [facility] [address] [id number] [place] [address] Oct, [facility] [address] [id number] [place] [address] Oct, [facility] [address] [id number] [place] [address] Oct, [facility] [address] [id number] [place] [address] Sep, [facility] [address] [id number] [place] [address] 26 Aug, 2010 [facility] [address] [id number] [place] [address] 16 Jul, 2010 [facility] [address] [id number] [place] [address] 13 May, 2010 [facility] [address] [id number] [place] [address] Dec, [facility] [address] [id number] [place] [address] Nov, [facility] [address] [id number] [place] [address] 14 Oct, 2009 [facility] [address] [id number] [place] [address] Sep, [facility] [address] [id number] [place] [address] Sep, [facility] [address] [id number] [place] [address] Jul, [facility] [address] [id number] [place] [address] Jun, [facility] [address] [id number] [place] [address] May, IMMUNIZATIONS No Known Immunizations SOCIAL HISTORY [...]
--- OUTSIDE RECORDS SUMMARY | 2020-06-11 20:54 | XMS REPORT ---
Author Author Jd Fagan r Organization [facility] Address Unknown Phone Unavailable Care Team Providers Care Court Worker Name Role Phone Migration, Doctor Unavailable Unavailable PROBLEMS Type Condition ICD9-CM Code FPO17-BU Code Onset Dates Condition S tatus SNOMED Code Problem Raynauds disease I73.00 Active 195 133932 Problem Venous insufficiency I87.2 Active 40939183 Problem Other chronic pain G89.29 Active 8 9056888 Problem Hypokalemia E87.6 Active 82046769 Problem Prediabetes R73.03 Active 92028879 2 Problem Low back pain M54.5 Active 511896 009 Problem Congenital deafness H90.5 Active 63459336 Problem Dysthymia F34.1 Active 53484233 Problem Neuropathy G62.9 Active 978196202 ALLERGIES No Information ENCOUNTERS Encounter Location Date Diagnosis [facility] [address] [address] Dec, Neuropathy G62.9 [place] [address] [address] Nov, Raynauds disease I73.00 ; Venous insuffi ciency I87.2 ; Prediabetes R73.03 and Neuropathy G62.9 [place] [address] [address] Jun, Congenital deafness H90.5 [facility] [address] [address] Jun, Other chronic pain G89.29 [facility] [address] [address] Jun, Acute kidney injury N17.9 [facility] [address] [facility] [id number] [address] [place] [address] Jan, Abscess of left knee L02.416 [place] [address] [address] Jan, Prediabetes R73.03 ; Raynauds disease I7 3.00 and Venous insufficiency I87.2 [place] [address] [address] Oct, Neuropathy G62.9 ; Low back pain M54.5 a nd URI (upper respiratory infection) J06.9 [place] [address] [address] Jul, Raynauds disease I73.00 and Hypokalemia E87.6 [place] [address] [address] May, Medicare annual wellness visit, initial Z00.00 ; Dysthymia F34.1 ; Raynauds disease I73.00 ; Venous insufficiency I87.2 ; Congenital deafness H90.5 and Neuropathy G62.9 [place] [address] [address] Apr, [place] [address] [address] Apr, Prediabetes R73.03 ; Raynauds disease I7 3.00 ; Venous insufficiency I87.2 ; Neuropathy G62.9 and Dysthymia F34.1 [place] [address] [address] March, [place] [address] [address] Sep, Hyperglycemia R73.9 [place] [address] [address] Sep, Hyperglycemia R73.9 [place] [address] [address] 06 Sep, 2017 Raynauds disease I73.00 ; Venous insuffi ciency I87.2 and Encounter for immunization Z23 [place] [address] [address] Jun, [place] [address] [address] May, [place] [address] [address] May, Other chronic pain G89.29 [place] [address] [address] May, Raynauds disease I73.00 ; Venous insuffi ciency I87.2 and Low back pain M54.5 [place] [address] [address] Dec, Raynauds disease I73.00 ; Venous insuffi ciency I87.2 ; Low back pain M54.5 and Other chronic pain G89.29 [place] [address] [address] Nov, [place] [address] [address] Nov, Muscle spasm M62.838 [facility] [address] [place] [id number] [address] [place] [address] Nov, [place] [address] [address] Oct, Folliculitis L73.9 and Venous insufficie ncy I87.2 [place] [address] [address] Sep, Dermatitis L30.9 and Raynauds disease I7 3.00 [facility] [address] [facility] [id number] [place] [address] 13 Sep, 2016 Rash and nonspecific skin er uption R21 [place] [address] [address] 17 Aug, 2016 Skin infection L08.9 [place] [address] [address] May, Infected smith L08.9 [facility] [address] [address] May, Skin infection L08.9 [facility] [address] [place] [id number] [place] [address] Dec, [facility] [address] [address] Nov, [facility] [address] [address] Nov, [facility] [address] [address] Nov, Raynauds disease I73.00 [facility] [address] [address] Nov, Raynauds disease I73.00 ; Leg cramps R25 .2 ; Venous insufficiency I87.2 and Routine adult health maintenance Z00.00 [facility] [address] [place] [id number] [place] [address] Jul, Infected sebaceous cyst 706.2 [facility] [address] [address] Jun, [facility] [address] [address] Jun, [facility] [address] [address] Jun, Venous insufficiency 459.81 and Raynauds disease 443.0 [facility] [address] [address] Feb, [facility] [address] [address] Feb, [facility] [address] [address] Jan, [facility] [address] [address] Jan, [facility] [place] [facility] [address] [id number] [place] [address] Dec, [facility] [place] [facility] [address] [id number] [place] [address] Dec, [facility] [place] [facility] [address] [id number] [place] [address] Dec, [facility] [place] [facility] [address] [id number] [place] [address] Dec, [facility] [place] [facility] [address] [id number] [place] [address] Nov, [facility] [place] [facility] [address] [id number] [place] [address] Nov, [facility] [place] [facility] [address] [id number] [place] [address] Oct, [facility] [place] [facility] [address] [place] [id number] [place] [address] Oct, [facility] [place] [facility] [address] [id number] [place] [address] Aug, [facility] [place] [facility] [address] [id number] [place] [address] Aug, [facility] [place] [facility] [address] [id number] [place] [address] Aug, [facility] [place] [facility] [address] [place] [id number] [place] [address] Jul, [facility] [place] [facility] [address] [id number] [place] [address] Jul, [facility] [place] [facility] [address] [place] [id number] [place] [address] Jul, [facility] [place] [facility] [address] [id number] [place] [address] Jul, [facility] [place] [facility] [address] [id number] [place] [address] Jun, [facility] [place] [facility] [address] [facility] [id number] [place] [address] Jun, [facility] [place] [facility] [address] [facility] [id number] [place] [address] Jun, [facility] [place] [facility] [address] [facility] [id number] [place] [address] Jun, [facility] [place] [facility] [address] [id number] [place] [address] May, [facility] [place] [facility] [address] [facility] [id number] [place] [address] May, [facility] [place] [facility] [address] [facility] [id number] [place] [address] May, [facility] [place] [facility] [address] [id number] [place] [address] May, [facility] [place] [facility] [address] [id number] [place] [address] May, [facility] [place] [facility] [address] [id number] [place] [address] May, [facility] [place] [facility] [address] [id number] [place] [address] May, [facility] [place] [facility] [address] [id number] [place] [address] Apr, [facility] [place] [facility] [address] [id number] [place] [address] Apr, [facility] [place] [facility] [address] [id number] [place] [address] Apr, [facility] [place] [facility] [address] [facility] [id number] [place] [address] Apr, [facility] [place] [facility] [address] [id number] [place] [address] March, [facility] [place] [facility] [address] [facility] [id number] [place] [address] March, [facility] [place] [facility] [address] [id number] [place] [address] March, [facility] [address] [id number] [place] [address] March, [facility] [facility] [address] [id number] [place] [address] March, [facility] [place] [facility] [address] [id number] [place] [address] March, [facility] [address] [id number] [place] [address] March, [facility] [place] [facility] [address] [id number] [place] [address] Feb, [facility] [address] [id number] [place] [address] Feb, [address] [place] [id number] Feb, [facility] [address] [id number] [place] [address] Feb, [facility] [place] [facility] [address] [id number] [place] [address] Feb, [facility] [address] [id number] [place] [address] Feb, [facility] [place] [facility] [address] [id number] [place] [address] Jan, [facility] [place] [facility] [address] [id number] [place] [address] Jan, [facility] [place] [facility] [address] [id number] [place] [address] Jan, [facility] [place] [facility] [address] [id number] [place] [address] Jan, [facility] [place] [facility] [address] [id number] [place] [address] Jan, [facility] [place] [facility] [address] [id number] [place] [address] Jan, [facility] [place] [facility] [address] [id number] [place] [address] Jan, [facility] [place] [facility] [address] [facility] [id number] [facility] [place] [address] Jan, [facility] [place] [facility] [address] [facility] [id number] [facility] [place] [address] Jan, [facility] [place] [facility] [address] [id number] [facility] [place] [address] Jan, [facility] [place] [facility] [address] [id number] [facility] [address] Jan, [facility] [place] [facility] [address] [facility] [id number] [place] [address] Jan, [facility] [place] [facility] [address] [id number] [place] [address] Jan, [facility] [place] [facility] [address] [id number] [facility] [address] Jan, [facility] [place] [facility] [address] [id number] [facility] [place] [address] Jan, [facility] [place] [facility] [address] [facility] [id number] [facility] [place] [address] Jan, [facility] [place] [facility] [address] [id number] [facility] [address] Jan, [facility] [place] [facility] [address] [id number] [place] [address] Jan, [facility] [place] [facility] [address] [id number] [place] [address] Dec, [facility] [place] [facility] [address] [facility] [id number] [facility] [place] [address] Dec, [facility] [place] [facility] [address] [facility] [id number] [place] [address] Dec, [facility] [place] [facility] [address] [id number] [place] [address] Dec, [facility] [place] [facility] [address] [id number] [place] [address] 14 Dec, 2013 [facility] [place] [facility] [address] [id number] [place] [address] Dec, [facility] [place] [facility] [address] [id number] [place] [address] Dec, [facility] [place] [facility] [address] [id number] [place] [address] Dec, [facility] [place] [facility] [address] [id number] [place] [address] Dec, [facility] [place] [facility] [address] [id number] [place] [address] Dec, [facility] [place] [facility] [address] [id number] [place] [address] Dec, [facility] [place] [facility] [address] [id number] [place] [address] Dec, [facility] [place] [facility] [address] [id number] [place] [address] Nov, [facility] [place] [facility] [address] [id number] [place] [address] Nov, [facility] [place] [facility] [address] [id number] [place] [address] Nov, [facility] [place] [facility] [address] [id number] [place] [address] Nov, [facility] [place] [facility] [address] [id number] [place] [address] Nov, [facility] [place] [facility] [address] [id number] [place] [address] Nov, [facility] [place] [facility] [address] [id number] [place] [address] Nov, [facility] [place] [facility] [address] [id number] [place] [address] Oct, [facility] [place] [facility] [address] [id number] [place] [address] Oct, [facility] [place] [facility] [address] [id number] [place] [address] Sep, [facility] [place] [facility] [address] [id number] [place] [address] Sep, [facility] [place] [facility] [address] [id number] [place] [address] Sep, [facility] [place] [facility] [address] [id number] [place] [address] Sep, [facility] [place] [facility] [address] [id number] [place] [address] Aug, [facility] [place] [facility] [address] [id number] [place] [address] Aug, [facility] [place] [facility] [address] [id number] [place] [address] Aug, [facility] [place] [facility] [address] [id number] [place] [address] Jul, [facility] [place] [facility] [address] [id number] [place] [address] Jul, [facility] [place] [facility] [address] [id number] [place] [address] Jun, [facility] [place] [facility] [address] [id number] [place] [address] Jun, [facility] [place] [facility] [address] [id number] [place] [address] Jun, [facility] [place] [facility] [address] [id number] [place] [address] May, [facility] [place] [facility] [address] [id number] [place] [address] May, [facility] [place] [facility] [address] [id number] [place] [address] May, [facility] [place] [facility] [address] [id number] [place] [address] Apr, [facility] [place] [facility] [address] [id number] [place] [address] Apr, [facility] [place] [facility] [address] [id number] [place] [address] March, [facility] [place] [facility] [address] [id number] [place] [address] Feb, [facility] [place] [facility] [address] [id number] [place] [address] Jan, [facility] [place] [facility] [address] [id number] [place] [address] Jan, [facility] [place] [facility] [address] [id number] [place] [address] Dec, [facility] [place] [facility] [address] [id number] [place] [address] Nov, [facility] [place] [facility] [address] [id number] [place] [address] Oct, [facility] [place] [facility] [address] [place] [id number] [place] [address] Oct, [facility] [place] [facility] [address] [place] [id number] [place] [address] 30 Sep, 2012 [facility] [place] [facility] [address] [id number] [place] [address] Sep, [facility] [place] [facility] [address] [place] [id number] [place] [address] Sep, [facility] [place] [facility] [address] [place] [id number] [place] [address] Sep, [facility] [place] [facility] [address] [id number] [place] [address] Sep, [facility] [place] [facility] [address] [id number] [place] [address] Sep, [facility] [place] [facility] [address] [place] [id number] [place] [address] Sep, [facility] [place] [facility] [address] [id number] [place] [address] Sep, [facility] [place] [facility] [address] [address] [id number] [place] [address] 04 Jul, 2012 [facility] [place] [facility] [address] [id number] [place] [address] Jun, [facility] [place] [facility] [address] [id number] [place] [address] Jun, [facility] [place] [facility] [address] [id number] [place] [address] Jun, [facility] [place] [facility] [address] [id number] [place] [address] Jun, [facility] [place] [facility] [address] [id number] [place] [address] May, [facility] [place] [facility] [address] [id number] [place] [address] Apr, [facility] [place] [facility] [address] [id number] [place] [address] Jan, [facility] [place] [facility] [id number] [place] [address] 14 Dec, 2011 [facility] [place] [facility] [address] [id number] [place] [address] Dec, [facility] [place] [facility] [address] [id number] [place] [address] Nov, [facility] [place] [facility] [id number] [place] [address] Oct, [facility] [place] [facility] [id number] [place] [address] Oct, [facility] [place] [facility] [id number] [place] [address] 18 Aug, 2011 [facility] [place] [facility] [address] [id number] [place] [address] 18 Aug, 2011 [facility] [place] [facility] [address] [id number] [place] [address] 18 Aug, 2011 [facility] [place] [facility] [address] [id number] [place] [address] 14 Aug, 2011 [facility] [place] [facility] [address] [address] [id number] [place] [address] 11 Aug, 2011 [facility] [place] [facility] [address] [id number] [place] [address] 11 Aug, 2011 [facility] [place] [facility] [address] [id number] [place] [address] May, [facility] [place] [facility] [address] [id number] [place] [address] 13 Apr, 2011 [facility] [place] [facility] [address] [id number] [place] [address] 18 Feb, 2011 [facility] [place] [facility] [address] [facility] [id number] [place] [address] Oct, [facility] [place] [facility] [address] [id number] [place] [address] Oct, [facility] [address] [id number] [place] [address] Oct, [facility] [address] [id number] [place] [address] Sep, [facility] [address] [id number] [place] [address] Aug, [facility] [address] [id number] [place] [address] 16 Jul, 2010 [facility] [address] [id number] [place] [address] May, [facility] [address] [id number] [place] [address] Dec, [facility] [address] [id number] [place] [address] Nov, [facility] [address] [id number] [place] [address] 14 Oct, 2009 [facility] [address] [id number] [place] [address] Sep, [facility] [address] [id number] [place] [address] 05 Sep, 2009 [facility] [address] [facility] [id number] [place] [address] 14 Jul, 2009 [facility] [address] [id number] [place] [address] Jun, [facility] [address] [id number] [place] [address] 13 May, 2009 IMMUNIZATIONS No Known Immunizations [...]
--- OUTSIDE RECORDS SUMMARY | 2020-06-11 20:54 | XMS REPORT ---
Author Author Jd ROBLEDO Organization [facility] Address [address] [place] [address] Care Team Providers Care Interactive Media Marketing Director Name Role Phone PAULA ROBLEDO Unavailable PROBLEMS Type Condition ICD9-CM Code [id number] Code Onset Dates Condition S tatus SNOMED Code Problem Raynauds disease I73.00 Active 195 026431 Problem Venous insufficiency I87.2 Active 23210456 Problem Other chronic pain G89.29 Active 8 9482578 Problem Hypokalemia E87.6 Active 95686964 Problem Prediabetes R73.03 Active 73714448 2 Problem Low back pain M54.5 Active 011351 009 Problem Congenital deafness H90.5 Active 32610779 Problem Dysthymia F34.1 Active 13080339 Problem Neuropathy G62.9 Active [id number] ALLERGIES No Information ENCOUNTERS Encounter Location Date Diagnosis [facility] [address] [address] 14 Dec, 2019 Neuropathy G62.9 [facility] [address] [address] Nov, Raynauds disease I73.00 ; Venous insuffi ciency I87.2 ; Prediabetes R73.03 and Neuropathy G62.9 [facility] [id number] [place] [address] Jun, Congenital deafness H90.5 [facility] [address] [address] Jun, Other chronic pain G89.29 [facility] [address] [address] Jun, Acute kidney injury N17.9 [facility] [address] [facility] [id number] [place] [address] Jan, Abscess of left knee L02.416 [place] [address] [address] Jan, Prediabetes R73.03 ; Raynauds disease I7 3.00 and Venous insufficiency I87.2 [place] [address] [address] Oct, Neuropathy G62.9 ; Low back pain M54.5 a nd URI (upper respiratory infection) J06.9 [place] [address] [address] Jul, Raynauds disease I73.00 and Hypokalemia E87.6 [place] [address] [address] May, Medicare annual wellness visit, initial Z00.00 ; Dysthymia F34.1 ; Raynauds disease I73.00 ; Venous insufficiency I87.2 ; Congenital deafness H90.5 and Neuropathy G62.9 [place] [address] [address] Apr, [place] [address] [address] Apr, Prediabetes R73.03 ; Raynauds disease I7 3.00 ; Venous insufficiency I87.2 ; Neuropathy G62.9 and Dysthymia F34.1 [place] [address] [address] March, [place] [address] [address] Sep, Hyperglycemia R73.9 [place] [address] [address] Sep, Hyperglycemia R73.9 [place] [address] [address] Sep, Raynauds disease I73.00 ; Venous insuffi ciency I87.2 and Encounter for immunization Z23 [place] [address] [address] Jun, [place] [address] [address] May, [place] [address] [address] May, Other chronic pain G89.29 [place] [address] [address] May, Raynauds disease I73.00 ; Venous insuffi ciency I87.2 and Low back pain M54.5 [place] [address] [address] Dec, Raynauds disease I73.00 ; Venous insuffi ciency I87.2 ; Low back pain M54.5 and Other chronic pain G89.29 [place] [address] [address] Nov, [place] [address] [address] Nov, Muscle spasm M62.838 [facility] [address] [id number] [address] [place] [address] Nov, [place] [address] [address] Oct, Folliculitis L73.9 and Venous insufficie ncy I87.2 [place] [address] [address] Sep, Dermatitis L30.9 and Raynauds disease I7 3.00 [facility] [address] [id number] [address] [place] [address] Sep, Rash and nonspecific skin er uption R21 [place] [address] [address] Aug, Skin infection L08.9 [facility] [address] [address] May, Infected smith L08.9 [facility] [address] [address] May, Skin infection L08.9 [facility] [address] [address] Dec, [facility] [address] [address] Nov, [facility] [address] [address] Nov, [facility] [address] [address] Nov, Raynauds disease I73.00 [place] [address] [address] Nov, Raynauds disease I73.00 ; Leg cramps R25 .2 ; Venous insufficiency I87.2 and Routine adult health maintenance Z00.00 [place] [address] [address] Jul, Infected sebaceous cyst 706.2 [facility] [address] [address] Jun, [facility] [address] [address] Jun, [facility] [address] [address] Jun, Venous insufficiency 459.81 and Raynauds disease 443.0 [facility] [address] [address] Feb, [facility] [address] [address] Feb, [facility] [address] [address] Jan, [facility] [address] [id number] [place] [address] Jan, [facility] [address] [id number] [place] [address] Dec, [facility] [address] [id number] [place] [address] Dec, [facility] [address] [id number] [place] [address] Dec, [facility] [address] [id number] [place] [address] Dec, [facility] [address] [id number] [place] [address] Nov, [facility] [address] [id number] [place] [address] Nov, [facility] [address] [id number] [place] [address] Oct, [facility] [address] [id number] [place] [address] Oct, [facility] [address] [id number] [place] [address] Aug, [facility] [address] [id number] [place] [address] Aug, [facility] [address] [id number] [place] [address] Aug, [facility] [address] [id number] [place] [address] Jul, 2013 [facility] [address] [id number] [place] [address] Jul, 2013 [facility] [address] [id number] [place] [address] Jul, 2013 [facility] [address] [id number] [place] [address] Jul, 2013 [facility] [address] [id number] [place] [address] Jun, [facility] [address] [id number] [place] [address] Jun, [facility] [address] [facility] [id number] [place] [address] Jun, [facility] [address] [id number] [place] [address] Jun, [facility] [address] [facility] [id number] [place] [address] May, [facility] [address] [facility] [id number] [place] [address] May, [facility] [address] [id number] [place] [address] May, [facility] [address] [id number] [place] [address] May, [facility] [address] [id number] [place] [address] May, [facility] [address] [facility] [id number] [place] [address] May, [facility] [address] [id number] [place] [address] May, [facility] [address] [id number] [place] [address] Apr, [facility] [address] [id number] [place] [address] Apr, [facility] [address] [facility] [id number] [place] [address] Apr, [facility] [address] [id number] [place] [address] Apr, [facility] [address] [id number] [place] [address] March, [facility] [address] [id number] [place] [address] March, [facility] [address] [id number] [place] [address] March, [facility] [address] [id number] [place] [address] March, [facility] [address] [id number] [place] [address] March, [facility] [address] [id number] [place] [address] March, [facility] [address] [id number] [place] [address] March, [facility] [address] [id number] [place] [address] Feb, [facility] [address] [id number] [place] [address] Feb, [address] [id number] Feb, [facility] [address] [id number] [place] [address] Feb, [facility] [address] [id number] [place] [address] Feb, [facility] [address] [id number] [place] [address] Feb, [facility] [address] [id number] [place] [address] Jan, [facility] [address] [id number] [place] [address] Jan, [facility] [address] [id number] [place] [address] Jan, [facility] [address] [id number] [place] [address] Jan, [facility] [address] [id number] [place] [address] Jan, [facility] [address] [id number] [place] [address] Jan, [facility] [address] [id number] [place] [address] Jan, [facility] [address] [id number] [place] [address] Jan, [facility] [address] [id number] [place] [address] Jan, [facility] [address] [id number] [place] [address] Jan, [facility] [address] [facility] [id number] [place] [address] Jan, [facility] [address] [id number] [place] [address] Jan, [facility] [address] [id number] [place] [address] Jan, [facility] [address] [id number] [place] [address] Jan, [facility] [address] [id number] [place] [address] Jan, [facility] [address] [id number] [place] [address] Jan, [facility] [address] [id number] [place] [address] Jan, [facility] [address] [id number] [place] [address] Jan, [facility] [address] [id number] [place] [address] Dec, [facility] [address] [id number] [place] [address] Dec, [facility] [address] [id number] [place] [address] Dec, [facility] [address] [id number] [place] [address] Dec, [facility] [address] [id number] [place] [address] 14 Dec, 2013 [facility] [address] [id number] [place] [address] Dec, [facility] [address] [id number] [place] [address] Dec, [facility] [address] [id number] [place] [address] Dec, [facility] [address] [id number] [place] [address] Dec, [facility] [address] [id number] [place] [address] Dec, [facility] [address] [id number] [place] [address] Dec, [facility] [address] [id number] [place] [address] Dec, [facility] [address] [id number] [place] [address] Nov, [facility] [address] [id number] [place] [address] Nov, [facility] [address] [id number] [place] [address] Nov, [facility] [address] [id number] [place] [address] Nov, [facility] [address] [id number] [place] [address] Nov, [facility] [address] [id number] [place] [address] Nov, [facility] [id number] [place] [address] Nov, [facility] [address] [id number] [place] [address] Oct, [facility] [address] [id number] [place] [address] Oct, [facility] [address] [id number] [place] [address] Sep, [facility] [address] [id number] [place] [address] Sep, [facility] [address] [id number] [place] [address] Sep, [facility] [address] [id number] [place] [address] Sep, [facility] [address] [id number] [place] [address] Aug, [facility] [address] [id number] [place] [address] Aug, [facility] [address] [id number] [place] [address] Aug, [facility] [address] [id number] [place] [address] Jul, [facility] [address] [id number] [place] [address] Jul, [facility] [address] [id number] [place] [address] Jun, [facility] [address] [id number] [place] [address] Jun, [facility] [address] [id number] [place] [address] Jun, [facility] [address] [id number] [place] [address] May, [facility] [address] [id number] [place] [address] May, [facility] [address] [id number] [place] [address] May, [facility] [address] [id number] [place] [address] Apr, [facility] [address] [id number] [place] [address] Apr, [facility] [address] [id number] [place] [address] March, [facility] [address] [id number] [place] [address] Feb, [facility] [address] [id number] [place] [address] Jan, [facility] [address] [id number] [place] [address] Jan, [facility] [address] [id number] [place] [address] Dec, [facility] [address] [id number] [place] [address] Nov, [facility] [address] [id number] [place] [address] Oct, [facility] [id number] [place] [address] Oct, [facility] [address] [id number] [place] [address] Sep, [facility] [id number] [place] [address] Sep, [facility] [address] [id number] [place] [address] Sep, [facility] [id number] [place] [address] Sep, [facility] [address] [id number] [place] [address] Sep, [facility] [id number] [place] [address] Sep, [facility] [address] [id number] [place] [address] Sep, [facility] [id number] [place] [address] Sep, [facility] [address] [id number] [place] [address] Jul, [facility] [address] [id number] [place] [address] Jun, [facility] [address] [id number] [place] [address] Jun, [facility] [address] [id number] [place] [address] Jun, [facility] [address] [id number] [place] [address] Jun, [facility] [address] [id number] [place] [address] May, [facility] [address] [id number] [place] [address] Apr, [facility] [id number] [place] [address] Jan, [facility] [address] [id number] [place] [address] Dec, [facility] [address] [id number] [place] [address] Dec, [facility] [id number] [place] [address] Nov, [facility] [id number] [place] [address] Oct, [facility] [address] [id number] [place] [address] 19 Oct, 2011 [facility] [address] [id number] [place] [address] 18 Aug, 2011 [facility] [id number] [place] [address] 18 Aug, 2011 [facility] [address] [id number] [place] [address] 18 Aug, 2011 [facility] [id number] [place] [address] 14 Aug, 2011 [facility] [address] [facility] [id number] [place] [address] 11 Aug, 2011 [facility] [address] [id number] [place] [address] 11 Aug, 2011 [facility] [address] [id number] [place] [address] 19 May, 2011 [facility] [address] [id number] [place] [address] 13 Apr, 2011 [facility] [address] [id number] [place] [address] 18 Feb, 2011 [facility] [address] [id number] [place] [address] Oct, [facility] [address] [id number] [place] [address] Oct, [facility] [address] [id number] [place] [address] Oct, [facility] [address] [id number] [place] [address] Sep, [facility] [address] [id number] [place] [address] 26 Aug, 2010 [facility] [address] [id number] [place] [address] 16 Jul, 2010 [facility] [address] [id number] [place] [address] 13 May, 2010 [facility] [address] [id number] [place] [address] Dec, [facility] [address] [id number] [place] [address] Nov, [facility] [address] [id number] [place] [address] 14 Oct, 2009 [facility] [address] [id number] [place] [address] Sep, [facility] [address] [id number] [place] [address] Sep, [facility] [address] [id number] [place] [address] Jul, [facility] [address] [id number] [place] [address] Jun, [facility] [address] [id number] [place] [address] May, IMMUNIZATIONS No Known Immunizations SOCIAL HISTORY [...]
--- OUTSIDE RECORDS SUMMARY | 2020-06-11 20:54 | XMS REPORT ---
Author Author Jd ROBLEDO Organization [facility] Address [address] [place] [address] Care Team Providers Care Guitar Instructor Name Role Phone PAULA ROBLEDO Unavailable PROBLEMS Type Condition ICD9-CM Code OWY57-CY Code Onset Dates Condition S tatus SNOMED Code Problem Raynauds disease I73.00 Active 195 834065 Problem Venous insufficiency I87.2 Active 12153517 Problem Other chronic pain G89.29 Active 8 3045341 Problem Hypokalemia E87.6 Active 33588239 Problem Prediabetes R73.03 Active 38117654 2 Problem Low back pain M54.5 Active 865761 009 Problem Congenital deafness H90.5 Active 39789602 Problem Dysthymia F34.1 Active 62272203 Problem Neuropathy G62.9 Active [id number] ALLERGIES No Known Allergies ENCOUNTERS Encounter Location Date Diagnosis [facility] [address] [address] 14 Dec, 2019 Neuropathy G62.9 [facility] [address] [address] Nov, Raynauds disease I73.00 ; Venous insuffi ciency I87.2 ; Prediabetes R73.03 and Neuropathy G62.9 [facility] [id number] [place] [address] Jun, Congenital deafness H90.5 [facility] [address] [address] Jun, Other chronic pain G89.29 [facility] [id number] [place] [address] Jun, Acute kidney injury N17.9 [facility] [address] [facility] [id number] [address] [address] Jan, Abscess of left knee L02.416 [place] [address] [address] Jan, Prediabetes R73.03 ; Raynauds disease I7 3.00 and Venous insufficiency I87.2 [place] [address] [address] Oct, Neuropathy G62.9 ; Low back pain M54.5 a nd URI (upper respiratory infection) J06.9 [place] [address] [address] Jul, Raynauds disease I73.00 and Hypokalemia E87.6 [place] [address] [address] May, Medicare annual wellness visit, initial Z00.00 ; Dysthymia F34.1 ; Raynauds disease I73.00 ; Venous insufficiency I87.2 ; Congenital deafness H90.5 and Neuropathy G62.9 [place] [address] [address] Apr, [place] [address] [address] Apr, Prediabetes R73.03 ; Raynauds disease I7 3.00 ; Venous insufficiency I87.2 ; Neuropathy G62.9 and Dysthymia F34.1 [place] [address] [address] March, [place] [address] [address] Sep, Hyperglycemia R73.9 [place] [address] [address] Sep, Hyperglycemia R73.9 [place] [address] [address] Sep, Raynauds disease I73.00 ; Venous insuffi ciency I87.2 and Encounter for immunization Z23 [place] [address] [address] Jun, [place] [address] [address] May, [place] [address] [address] May, Other chronic pain G89.29 [place] [address] [address] May, Raynauds disease I73.00 ; Venous insuffi ciency I87.2 and Low back pain M54.5 [place] [address] [address] Dec, Raynauds disease I73.00 ; Venous insuffi ciency I87.2 ; Low back pain M54.5 and Other chronic pain G89.29 [place] [address] [address] Nov, [place] [address] [address] Nov, Muscle spasm M62.838 [facility] [id number] [place] [address] Nov, [place] [address] [address] Oct, Folliculitis L73.9 and Venous insufficie ncy I87.2 [place] [address] [address] Sep, Dermatitis L30.9 and Raynauds disease I7 3.00 [facility] [address] [id number] [place] [address] Sep, Rash and nonspecific skin er uption R21 [place] [address] [address] Aug, Skin infection L08.9 [facility] [address] [address] May, Infected smith L08.9 [facility] [address] [address] May, Skin infection L08.9 [facility] [address] [address] Dec, [facility] [address] [address] Nov, [facility] [address] [address] Nov, [facility] [address] [address] Nov, Raynauds disease I73.00 [place] [address] [address] Nov, Raynauds disease I73.00 ; Leg cramps R25 .2 ; Venous insufficiency I87.2 and Routine adult health maintenance Z00.00 [place] [address] [address] Jul, Infected sebaceous cyst 706.2 [place] [address] [address] Jun, [facility] [address] [address] Jun, [facility] [address] [address] Jun, Venous insufficiency 459.81 and Raynauds disease 443.0 [place] [address] [address] Feb, [facility] [address] [address] Feb, [facility] [address] [address] Jan, [facility] [id number] [place] [address] Jan, [facility] [id number] [place] [address] Dec, [facility] [id number] [place] [address] Dec, [facility] [id number] [place] [address] Dec, [facility] [id number] [place] [address] Dec, [facility] [id number] [place] [address] Nov, [facility] [id number] [place] [address] Nov, [facility] [id number] [place] [address] Oct, [facility] [id number] [place] [address] Oct, [facility] [id number] [place] [address] Aug, [facility] [id number] [place] [address] Aug, [facility] [id number] [place] [address] Aug, [facility] [id number] [place] [address] Jul, 2013 [facility] [id number] [place] [address] Jul, 2013 [facility] [id number] [place] [address] Jul, [facility] [id number] [place] [address] Jul, 2013 [facility] [id number] [place] [address] Jun, [facility] [address] [id number] [place] [address] Jun, [facility] [address] [facility] [id number] [place] [address] Jun, [facility] [id number] [place] [address] Jun, [facility] [address] [facility] [id number] [place] [address] May, [facility] [address] [facility] [id number] [place] [address] May, [facility] [id number] [place] [address] May, [facility] [id number] [place] [address] May, [facility] [id number] [place] [address] May, [facility] [address] [facility] [id number] [place] [address] May, [facility] [id number] [place] [address] May, [facility] [id number] [place] [address] Apr, [facility] [id number] [place] [address] Apr, [facility] [address] [facility] [id number] [place] [address] Apr, [facility] [id number] [place] [address] Apr, [facility] [id number] [place] [address] March, [facility] [id number] [place] [address] March, [facility] [id number] [place] [address] March, [facility] [id number] [place] [address] March, [facility] [id number] [place] [address] March, [facility] [id number] [place] [address] March, [facility] [id number] [place] [address] March, [facility] [id number] [place] [address] Feb, [facility] [id number] [place] [address] Feb, [address] [id number] Feb, [facility] [id number] [place] [address] Feb, [facility] [id number] [place] [address] Feb, [facility] [id number] [place] [address] Feb, [facility] [id number] [place] [address] Jan, [facility] [id number] [place] [address] Jan, [facility] [id number] [place] [address] Jan, [facility] [id number] [place] [address] Jan, [facility] [id number] [place] [address] Jan, [facility] [id number] [place] [address] Jan, [facility] [address] [facility] [id number] [place] [address] Jan, [facility] [id number] [place] [address] Jan, [facility] [id number] [place] [address] Jan, [facility] [id number] [place] [address] Jan, [facility] [address] [facility] [id number] [place] [address] Jan, [facility] [id number] [place] [address] Jan, [facility] [id number] [place] [address] Jan, [facility] [id number] [place] [address] Jan, [facility] [id number] [place] [address] Jan, [facility] [id number] [place] [address] Jan, [facility] [id number] [place] [address] Jan, [facility] [id number] [place] [address] Jan, [facility] [id number] [place] [address] Dec, [facility] [id number] [place] [address] Dec, [facility] [id number] [place] [address] Dec, [facility] [id number] [place] [address] Dec, [facility] [id number] [place] [address] 14 Dec, 2013 [facility] [id number] [place] [address] Dec, [facility] [id number] [place] [address] Dec, [facility] [id number] [place] [address] Dec, [facility] [id number] [place] [address] Dec, [facility] [id number] [place] [address] Dec, [facility] [id number] [place] [address] Dec, [facility] [id number] [place] [address] Dec, [facility] [id number] [place] [address] Nov, [facility] [id number] [place] [address] Nov, [facility] [id number] [place] [address] Nov, [facility] [id number] [place] [address] Nov, [facility] [id number] [place] [address] Nov, [facility] [id number] [place] [address] Nov, [facility] [id number] [place] [address] Nov, [facility] [id number] [place] [address] Oct, [facility] [id number] [place] [address] Oct, [facility] [id number] [place] [address] Sep, [facility] [id number] [place] [address] Sep, [facility] [id number] [place] [address] Sep, [facility] [id number] [place] [address] Sep, [facility] [id number] [place] [address] Aug, [facility] [id number] [place] [address] Aug, [facility] [id number] [place] [address] Aug, [facility] [id number] [place] [address] Jul, [facility] [id number] [place] [address] Jul, [facility] [id number] [place] [address] Jun, [facility] [id number] [place] [address] Jun, [facility] [id number] [place] [address] Jun, [facility] [id number] [place] [address] May, [facility] [id number] [place] [address] May, [facility] [id number] [place] [address] May, [facility] [id number] [place] [address] Apr, [facility] [id number] [place] [address] Apr, [facility] [id number] [place] [address] March, [facility] [id number] [place] [address] Feb, [facility] [id number] [place] [address] Jan, [facility] [id number] [place] [address] Jan, [facility] [id number] [place] [address] Dec, [facility] [id number] [place] [address] Nov, [facility] [id number] [place] [address] Oct, [facility] [id number] [place] [address] Oct, [facility] [id number] [place] [address] 30 Sep, 2012 [facility] [id number] [place] [address] Sep, [facility] [id number] [place] [address] Sep, [facility] [id number] [place] [address] Sep, [facility] [id number] [place] [address] Sep, [facility] [id number] [place] [address] Sep, [facility] [id number] [place] [address] Sep, [facility] [id number] [place] [address] Sep, [facility] [id number] [place] [address] Jul, [facility] [id number] [place] [address] Jun, [facility] [id number] [place] [address] Jun, [facility] [id number] [place] [address] Jun, [facility] [id number] [place] [address] Jun, [facility] [id number] [place] [address] May, [facility] [id number] [place] [address] Apr, [facility] [id number] [place] [address] Jan, [facility] [id number] [place] [address] 14 Dec, 2011 [facility] [id number] [place] [address] Dec, [facility] [id number] [place] [address] Nov, [facility] [id number] [place] [address] Oct, [facility] [id number] [place] [address] 19 Oct, 2011 [facility] [id number] [place] [address] 18 Aug, 2011 [facility] [id number] [place] [address] 18 Aug, 2011 [facility] [id number] [place] [address] 18 Aug, 2011 [facility] [id number] [place] [address] 14 Aug, 2011 [facility] [address] [facility] [id number] [place] [address] 11 Aug, 2011 [facility] [id number] [place] [address] 11 Aug, 2011 [facility] [id number] [place] [address] 19 May, 2011 [facility] [id number] [place] [address] 13 Apr, 2011 [facility] [address] [facility] [id number] [place] [address] 18 Feb, 2011 [facility] [id number] [place] [address] Oct, [facility] [id number] [place] [address] Oct, [facility] [id number] [place] [address] Oct, [facility] [id number] [place] [address] Sep, [facility] [id number] [place] [address] 26 Aug, 2010 [facility] [id number] [place] [address] 16 Jul, 2010 [facility] [id number] [place] [address] 13 May, 2010 [facility] [id number] [place] [address] Dec, [facility] [id number] [place] [address] Nov, [facility] [id number] [place] [address] 14 Oct, 2009 [facility] [id number] [place] [address] Sep, [facility] [id number] [place] [address] 05 Sep, 2009 [facility] [id number] [place] [address] Jul, [facility] [id number] [place] [address] Jun, [facility] [id number] [place] [address] May, IMMUNIZATIONS No Known Immunizations SOCIAL HISTORY Never Assessed REASON FOR VISIT Pain management (chronic)- pt states no problems at this time- marie kumar, A1C don e in visit - marie kumar PLAN OF CARE Activity Details Follow Up 3 Months Reason: VITAL SIGNS Height 73 in 2019-02-15 Weight 206.1 lbs 2019-02-15 Temperature 97.3 degrees Fahrenheit 2019-02-15 Heart Rate 72 bpm 2019-02-15 Respiratory Rate 20 2019-02-15 BMI 27.19 kg/m2 2019-02-15 Blood pressure systolic 122 mmHg 2019-02-15 Blood pressure diastolic 82 mmHg 2019-02-15 MEDICATIONS Medication Instructions Dosage Frequency Start Date End Date Duration S tatus Furosemide 20 mg Orally Once a day 1 tablet 24h 30 d ays Active Lyrica 100 mg Orally Three times a day 1 capsule 8h Nov, Active Klor-Con 10 10 MEQ Orally Once a day 1 tablet with food 24h Nov, Active Nisoldipine ER 34 MG 1 TABLET BY ORAL ROUTE 1 TIME PER DAY Active Ibuprofen 600 MG Orally Three times a day, prn back pain 1 tablet with food or milk as needed Oct, Active RESULTS No Results PROCEDURES Procedure Date Ordered Result Body Site BASIC METABOLIC PANEL February 15, 2019 GLYCATED HEMOGLOBIN TEST February 15, 2019 INSTRUCTIONS MEDICATIONS ADMINISTERED No Known Medications MEDICAL [...]
--- OUTSIDE RECORDS SUMMARY | 2020-06-11 20:54 | XMS REPORT ---
Author Author Jd ROBLEDO Organization [facility] Address [address] [place] [address] Care Team Providers Care Blender Name Role Phone PAULA ROBLEDO Unavailable PROBLEMS Type Condition ICD9-CM Code UYE80-YI Code Onset Dates Condition S tatus SNOMED Code Problem Raynauds disease I73.00 Active 195 738755 Problem Venous insufficiency I87.2 Active 06312278 Problem Other chronic pain G89.29 Active 8 9362186 Problem Hypokalemia E87.6 Active 03523900 Problem Prediabetes R73.03 Active 10819755 2 Problem Low back pain M54.5 Active 063710 009 Problem Congenital deafness H90.5 Active 29869812 Problem Dysthymia F34.1 Active 69542242 Problem Neuropathy G62.9 Active [id number] ALLERGIES No Information ENCOUNTERS Encounter Location Date Diagnosis [facility] [address] [address] 14 Dec, 2019 Neuropathy G62.9 [facility] [address] [address] Nov, Raynauds disease I73.00 ; Venous insuffi ciency I87.2 ; Prediabetes R73.03 and Neuropathy G62.9 [facility] [id number] [place] [address] Jun, Congenital deafness H90.5 [facility] [address] [address] Jun, Other chronic pain G89.29 [facility] [address] [address] Jun, Acute kidney injury N17.9 [facility] [address] [facility] [id number] [address] [address] Jan, Abscess of left knee L02.416 [place] [address] [address] Jan, Prediabetes R73.03 ; Raynauds disease I7 3.00 and Venous insufficiency I87.2 [place] [address] [address] Oct, Neuropathy G62.9 ; Low back pain M54.5 a nd URI (upper respiratory infection) J06.9 [place] [address] [address] Jul, Raynauds disease I73.00 and Hypokalemia E87.6 [place] [address] [address] May, Medicare annual wellness visit, initial Z00.00 ; Dysthymia F34.1 ; Raynauds disease I73.00 ; Venous insufficiency I87.2 ; Congenital deafness H90.5 and Neuropathy G62.9 [place] [address] [address] Apr, [place] [address] [address] Apr, Prediabetes R73.03 ; Raynauds disease I7 3.00 ; Venous insufficiency I87.2 ; Neuropathy G62.9 and Dysthymia F34.1 [place] [address] [address] March, [place] [address] [address] Sep, Hyperglycemia R73.9 [place] [address] [address] Sep, Hyperglycemia R73.9 [place] [address] [address] Sep, Raynauds disease I73.00 ; Venous insuffi ciency I87.2 and Encounter for immunization Z23 [place] [address] [address] Jun, [place] [address] [address] May, [place] [address] [address] May, Other chronic pain G89.29 [place] [address] [address] May, Raynauds disease I73.00 ; Venous insuffi ciency I87.2 and Low back pain M54.5 [place] [address] [address] Dec, Raynauds disease I73.00 ; Venous insuffi ciency I87.2 ; Low back pain M54.5 and Other chronic pain G89.29 [place] [address] [address] Nov, [place] [address] [address] Nov, Muscle spasm M62.838 [facility] [address] [id number] [address] [place] [address] Nov, [place] [address] [address] Oct, Folliculitis L73.9 and Venous insufficie ncy I87.2 [place] [address] [address] Sep, Dermatitis L30.9 and Raynauds disease I7 3.00 [facility] [address] [id number] [address] [place] [address] Sep, Rash and nonspecific skin er uption R21 [place] [address] [address] Aug, Skin infection L08.9 [facility] [address] [address] May, Infected smith L08.9 [facility] [address] [address] May, Skin infection L08.9 [facility] [address] [address] Dec, [facility] [address] [address] Nov, [facility] [address] [address] Nov, [facility] [address] [address] Nov, Raynauds disease I73.00 [place] [address] [address] Nov, Raynauds disease I73.00 ; Leg cramps R25 .2 ; Venous insufficiency I87.2 and Routine adult health maintenance Z00.00 [place] [address] [address] Jul, Infected sebaceous cyst 706.2 [facility] [address] [address] Jun, [facility] [address] [address] Jun, [facility] [address] [address] Jun, Venous insufficiency 459.81 and Raynauds disease 443.0 [facility] [address] [address] Feb, [facility] [address] [address] Feb, [facility] [address] [address] Jan, [facility] [id number] [place] [address] Jan, [facility] [id number] [place] [address] Dec, [facility] [id number] [place] [address] Dec, [facility] [id number] [place] [address] Dec, [facility] [id number] [place] [address] Dec, [facility] [id number] [place] [address] Nov, [facility] [id number] [place] [address] Nov, [facility] [id number] [place] [address] Oct, [facility] [id number] [place] [address] Oct, [facility] [id number] [place] [address] Aug, [facility] [id number] [place] [address] Aug, [facility] [id number] [place] [address] Aug, [facility] [id number] [place] [address] Jul, 2013 [facility] [id number] [place] [address] Jul, 2013 [facility] [id number] [place] [address] Jul, 2013 [facility] [id number] [place] [address] Jul, 2013 [facility] [id number] [place] [address] Jun, [facility] [address] [id number] [place] [address] Jun, [facility] [address] [facility] [id number] [place] [address] Jun, [facility] [id number] [place] [address] Jun, [facility] [address] [facility] [id number] [place] [address] May, [facility] [address] [facility] [id number] [place] [address] May, [facility] [id number] [place] [address] May, [facility] [id number] [place] [address] May, [facility] [id number] [place] [address] May, [facility] [address] [facility] [id number] [place] [address] May, [facility] [id number] [place] [address] May, [facility] [id number] [place] [address] Apr, [facility] [id number] [place] [address] Apr, [facility] [address] [facility] [id number] [place] [address] Apr, [facility] [id number] [place] [address] Apr, [facility] [id number] [place] [address] March, [facility] [id number] [place] [address] March, [facility] [id number] [place] [address] March, [facility] [id number] [place] [address] March, [facility] [id number] [place] [address] March, [facility] [id number] [place] [address] March, [facility] [id number] [place] [address] March, [facility] [id number] [place] [address] Feb, [facility] [id number] [place] [address] Feb, [address] [id number] Feb, [facility] [id number] [place] [address] Feb, [facility] [id number] [place] [address] Feb, [facility] [id number] [place] [address] Feb, [facility] [id number] [place] [address] Jan, [facility] [id number] [place] [address] Jan, [facility] [id number] [place] [address] Jan, [facility] [id number] [place] [address] Jan, [facility] [id number] [place] [address] Jan, [facility] [id number] [place] [address] Jan, [facility] [id number] [place] [address] Jan, [facility] [id number] [place] [address] Jan, [facility] [id number] [place] [address] Jan, [facility] [id number] [place] [address] Jan, [facility] [address] [facility] [id number] [place] [address] Jan, [facility] [id number] [place] [address] Jan, [facility] [id number] [place] [address] Jan, [facility] [id number] [place] [address] Jan, [facility] [id number] [place] [address] Jan, [facility] [id number] [place] [address] Jan, [facility] [id number] [place] [address] Jan, [facility] [id number] [place] [address] Jan, [facility] [id number] [place] [address] Dec, [facility] [id number] [place] [address] Dec, [facility] [id number] [place] [address] Dec, [facility] [id number] [place] [address] Dec, [facility] [id number] [place] [address] 14 Dec, 2013 [facility] [id number] [place] [address] Dec, [facility] [id number] [place] [address] Dec, [facility] [id number] [place] [address] Dec, [facility] [id number] [place] [address] Dec, [facility] [id number] [place] [address] Dec, [facility] [id number] [place] [address] Dec, [facility] [id number] [place] [address] Dec, [facility] [id number] [place] [address] Nov, [facility] [id number] [place] [address] Nov, [facility] [id number] [place] [address] Nov, [facility] [id number] [place] [address] Nov, [facility] [id number] [place] [address] Nov, [facility] [id number] [place] [address] Nov, [facility] [id number] [place] [address] Nov, [facility] [id number] [place] [address] Oct, [facility] [id number] [place] [address] Oct, [facility] [id number] [place] [address] Sep, [facility] [id number] [place] [address] Sep, [facility] [id number] [place] [address] Sep, [facility] [id number] [place] [address] Sep, [facility] [id number] [place] [address] Aug, [facility] [id number] [place] [address] Aug, [facility] [id number] [place] [address] Aug, [facility] [id number] [place] [address] Jul, [facility] [id number] [place] [address] Jul, [facility] [id number] [place] [address] Jun, [facility] [id number] [place] [address] Jun, [facility] [id number] [place] [address] Jun, [facility] [id number] [place] [address] May, [facility] [id number] [place] [address] May, [facility] [id number] [place] [address] May, [facility] [id number] [place] [address] Apr, [facility] [id number] [place] [address] Apr, [facility] [id number] [place] [address] March, [facility] [id number] [place] [address] Feb, [facility] [id number] [place] [address] Jan, [facility] [id number] [place] [address] Jan, [facility] [id number] [place] [address] Dec, [facility] [id number] [place] [address] Nov, [facility] [id number] [place] [address] Oct, [facility] [id number] [place] [address] Oct, [facility] [id number] [place] [address] Sep, [facility] [id number] [place] [address] Sep, [facility] [id number] [place] [address] Sep, [facility] [id number] [place] [address] Sep, [facility] [id number] [place] [address] Sep, [facility] [id number] [place] [address] Sep, [facility] [id number] [place] [address] Sep, [facility] [id number] [place] [address] Sep, [facility] [id number] [place] [address] Jul, [facility] [id number] [place] [address] Jun, [facility] [id number] [place] [address] Jun, [facility] [id number] [place] [address] Jun, [facility] [id number] [place] [address] Jun, [facility] [id number] [place] [address] May, [facility] [id number] [place] [address] Apr, [facility] [id number] [place] [address] Jan, [facility] [id number] [place] [address] Dec, [facility] [id number] [place] [address] Dec, [facility] [id number] [place] [address] Nov, [facility] [id number] [place] [address] Oct, [facility] [id number] [place] [address] 19 Oct, 2011 [facility] [id number] [place] [address] 18 Aug, 2011 [facility] [id number] [place] [address] 18 Aug, 2011 [facility] [id number] [place] [address] 18 Aug, 2011 [facility] [id number] [place] [address] 14 Aug, 2011 [facility] [address] [facility] [id number] [place] [address] 11 Aug, 2011 [facility] [id number] [place] [address] 11 Aug, 2011 [facility] [id number] [place] [address] 19 May, 2011 [facility] [id number] [place] [address] 13 Apr, 2011 [facility] [id number] [place] [address] 18 Feb, 2011 [facility] [id number] [place] [address] Oct, [facility] [id number] [place] [address] Oct, [facility] [id number] [place] [address] Oct, [facility] [id number] [place] [address] Sep, [facility] [id number] [place] [address] 26 Aug, 2010 [facility] [id number] [place] [address] 16 Jul, 2010 [facility] [id number] [place] [address] 13 May, 2010 [facility] [id number] [place] [address] Dec, [facility] [id number] [place] [address] Nov, [facility] [id number] [place] [address] 14 Oct, 2009 [facility] [id number] [place] [address] Sep, [facility] [id number] [place] [address] Sep, [facility] [id number] [place] [address] Jul, [facility] [id number] [place] [address] Jun, [facility] [id number] [place] [address] May, IMMUNIZATIONS No Known Immunizations SOCIAL HISTORY [...]
--- OUTSIDE RECORDS SUMMARY | 2020-06-11 20:54 | XMS REPORT ---
Author Author Jd ROBLEDO Organization [facility] [place] Address [address] [place] [address] Care Team Providers Care Jde Developer Name Role Phone PAULA ROBLEDO Unavailable PROBLEMS Type Condition ICD9-CM Code NIK96-LW Code Onset Dates Condition S tatus SNOMED Code Problem Raynauds disease I73.00 Active 195 870010 Problem Venous insufficiency I87.2 Active 80004504 Problem Other chronic pain G89.29 Active 8 8669695 Problem Hypokalemia E87.6 Active 58061022 Problem Prediabetes R73.03 Active 09559864 2 Problem Low back pain M54.5 Active 004534 009 Problem Congenital deafness H90.5 Active 95901779 Problem Dysthymia F34.1 Active 88070293 Problem Neuropathy G62.9 Active [id number] ALLERGIES No Information ENCOUNTERS Encounter Location Date Diagnosis [facility] [place] [address] [address] Dec, Neuropathy G62.9 [facility] [place] [address] [address] Nov, Raynauds disease I73.00 ; Venous insuffi ciency I87.2 ; Prediabetes R73.03 and Neuropathy G62.9 [facility] [place] [id number] [place] [address] Jun, Congenital deafness H90.5 [facility] [place] [address] [address] Jun, Other chronic pain G89.29 [facility] [place] [address] [address] Jun, Acute kidney injury N17.9 [facility] [address] [facility] [id number] [address] [place] [address] Jan, Abscess of left knee L02.416 [place] [address] [address] Jan, Prediabetes R73.03 ; Raynauds disease I7 3.00 and Venous insufficiency I87.2 [place] [address] [address] Oct, Neuropathy G62.9 ; Low back pain M54.5 a nd URI (upper respiratory infection) J06.9 [place] [address] [address] Jul, Raynauds disease I73.00 and Hypokalemia E87.6 [place] [address] [address] May, Medicare annual wellness visit, initial Z00.00 ; Dysthymia F34.1 ; Raynauds disease I73.00 ; Venous insufficiency I87.2 ; Congenital deafness H90.5 and Neuropathy G62.9 [place] [address] [address] Apr, [place] [address] [address] Apr, Prediabetes R73.03 ; Raynauds disease I7 3.00 ; Venous insufficiency I87.2 ; Neuropathy G62.9 and Dysthymia F34.1 [place] [address] [address] March, [place] [address] [address] Sep, Hyperglycemia R73.9 [place] [address] [address] Sep, Hyperglycemia R73.9 [place] [address] [address] Sep, Raynauds disease I73.00 ; Venous insuffi ciency I87.2 and Encounter for immunization Z23 [place] [address] [address] Jun, [place] [address] [address] May, [place] [address] [address] May, Other chronic pain G89.29 [place] [address] [address] May, Raynauds disease I73.00 ; Venous insuffi ciency I87.2 and Low back pain M54.5 [place] [address] [address] Dec, Raynauds disease I73.00 ; Venous insuffi ciency I87.2 ; Low back pain M54.5 and Other chronic pain G89.29 [place] [address] [address] Nov, [place] [address] [address] Nov, Muscle spasm M62.838 [facility] [id number] [place] [address] Nov, [place] [address] [address] Oct, Folliculitis L73.9 and Venous insufficie ncy I87.2 [place] [address] [address] Sep, Dermatitis L30.9 and Raynauds disease I7 3.00 [facility] [id number] [place] [address] Sep, Rash and nonspecific skin er uption R21 [place] [address] [address] Aug, Skin infection L08.9 [facility] [place] [address] [address] May, Infected smith L08.9 [facility] [place] [address] [address] May, Skin infection L08.9 [facility] [place] [address] [address] Dec, [facility] [place] [address] [address] Nov, [facility] [place] [address] [address] Nov, [facility] [place] [address] [address] Nov, Raynauds disease I73.00 [place] [address] [address] Nov, Raynauds disease I73.00 ; Leg cramps R25 .2 ; Venous insufficiency I87.2 and Routine adult health maintenance Z00.00 [place] [address] [address] Jul, Infected sebaceous cyst 706.2 [facility] [place] [address] [address] Jun, [facility] [place] [address] [address] Jun, [facility] [place] [address] [address] Jun, Venous insufficiency 459.81 and Raynauds disease 443.0 [facility] [place] [address] [address] Feb, [facility] [place] [address] [address] Feb, [facility] [place] [address] [address] Jan, [facility] [address] [id number] [place] [address] Jan, [facility] [address] [id number] [place] [address] Dec, [facility] [address] [id number] [place] [address] Dec, [facility] [address] [id number] [place] [address] Dec, [facility] [address] [id number] [place] [address] Dec, [facility] [address] [id number] [place] [address] Nov, [facility] [address] [id number] [place] [address] Nov, [facility] [address] [id number] [place] [address] Oct, [facility] [address] [id number] [place] [address] Oct, [facility] [address] [id number] [place] [address] Aug, [facility] [address] [id number] [place] [address] Aug, [facility] [address] [id number] [place] [address] Aug, [facility] [address] [id number] [place] [address] Jul, 2013 [facility] [address] [id number] [place] [address] Jul, 2013 [facility] [address] [id number] [place] [address] Jul, 2013 [facility] [address] [id number] [place] [address] Jul, 2013 [facility] [address] [id number] [place] [address] Jun, [facility] [address] [id number] [facility] [address] Jun, [facility] [address] [facility] [id number] [place] [address] Jun, [facility] [address] [id number] [place] [address] Jun, [facility] [address] [facility] [id number] [place] [address] May, [facility] [address] [facility] [id number] [place] [address] May, [facility] [address] [id number] [place] [address] May, [facility] [address] [id number] [place] [address] May, [facility] [address] [id number] [place] [address] May, [facility] [address] [facility] [id number] [place] [address] May, [facility] [address] [id number] [place] [address] May, [facility] [address] [id number] [place] [address] Apr, [facility] [address] [id number] [place] [address] Apr, [facility] [address] [facility] [id number] [place] [address] Apr, [facility] [address] [id number] [place] [address] Apr, [facility] [address] [id number] [place] [address] March, [facility] [address] [id number] [place] [address] March, [facility] [address] [id number] [place] [address] March, [facility] [address] [id number] [place] [address] March, [facility] [address] [id number] [place] [address] March, [facility] [address] [id number] [place] [address] March, [facility] [address] [id number] [place] [address] March, [facility] [address] [id number] [place] [address] Feb, [facility] [address] [id number] [place] [address] Feb, [address] [id number] Feb, [facility] [address] [id number] [place] [address] Feb, [facility] [address] [id number] [place] [address] Feb, [facility] [address] [id number] [place] [address] Feb, [facility] [address] [id number] [place] [address] Jan, [facility] [address] [id number] [place] [address] Jan, [facility] [address] [id number] [place] [address] Jan, [facility] [address] [id number] [place] [address] Jan, [facility] [address] [id number] [place] [address] Jan, [facility] [address] [id number] [place] [address] Jan, [facility] [address] [id number] [place] [address] Jan, [facility] [address] [id number] [place] [address] Jan, [facility] [address] [id number] [place] [address] Jan, [facility] [address] [id number] [place] [address] Jan, [facility] [address] [facility] [id number] [place] [address] Jan, [facility] [address] [id number] [place] [address] Jan, [facility] [address] [id number] [place] [address] Jan, [facility] [address] [id number] [place] [address] Jan, [facility] [address] [id number] [place] [address] Jan, [facility] [address] [id number] [place] [address] Jan, [facility] [address] [id number] [place] [address] Jan, [facility] [address] [id number] [place] [address] Jan, [facility] [address] [id number] [place] [address] Dec, [facility] [address] [id number] [place] [address] Dec, [facility] [address] [id number] [place] [address] Dec, [facility] [address] [id number] [place] [address] Dec, [facility] [address] [id number] [place] [address] 14 Dec, 2013 [facility] [address] [id number] [place] [address] Dec, [facility] [address] [id number] [place] [address] Dec, [facility] [address] [id number] [place] [address] Dec, [facility] [address] [id number] [place] [address] Dec, [facility] [address] [id number] [place] [address] Dec, [facility] [address] [id number] [place] [address] Dec, [facility] [address] [id number] [place] [address] Dec, [facility] [address] [id number] [place] [address] Nov, [facility] [address] [id number] [place] [address] Nov, [facility] [address] [id number] [place] [address] Nov, [facility] [address] [id number] [place] [address] Nov, [facility] [address] [id number] [place] [address] Nov, [facility] [address] [id number] [place] [address] Nov, [facility] [id number] [place] [address] Nov, [facility] [address] [id number] [place] [address] Oct, [facility] [address] [id number] [place] [address] Oct, [facility] [address] [id number] [place] [address] Sep, [facility] [address] [id number] [place] [address] Sep, [facility] [address] [id number] [place] [address] Sep, [facility] [address] [id number] [place] [address] Sep, [facility] [address] [id number] [place] [address] Aug, [facility] [address] [id number] [place] [address] Aug, [facility] [address] [id number] [place] [address] Aug, [facility] [address] [id number] [place] [address] Jul, [facility] [address] [id number] [place] [address] Jul, [facility] [address] [id number] [place] [address] Jun, [facility] [address] [id number] [place] [address] Jun, [facility] [address] [id number] [place] [address] Jun, [facility] [address] [id number] [place] [address] May, [facility] [address] [id number] [place] [address] May, [facility] [address] [id number] [place] [address] May, [facility] [address] [id number] [place] [address] Apr, [facility] [address] [id number] [place] [address] Apr, [facility] [address] [id number] [place] [address] March, [facility] [address] [id number] [place] [address] Feb, [facility] [address] [id number] [place] [address] Jan, [facility] [address] [id number] [place] [address] Jan, [facility] [address] [id number] [place] [address] Dec, [facility] [address] [id number] [place] [address] Nov, [facility] [address] [id number] [place] [address] Oct, [facility] [id number] [place] [address] Oct, [facility] [address] [id number] [place] [address] Sep, [facility] [id number] [place] [address] Sep, [facility] [address] [id number] [place] [address] Sep, [facility] [id number] [place] [address] Sep, [facility] [address] [id number] [place] [address] Sep, [facility] [id number] [place] [address] Sep, [facility] [address] [id number] [place] [address] Sep, [facility] [id number] [place] [address] Sep, [facility] [address] [id number] [place] [address] Jul, [facility] [address] [id number] [place] [address] Jun, [facility] [address] [id number] [place] [address] Jun, [facility] [address] [id number] [place] [address] Jun, [facility] [address] [id number] [place] [address] Jun, [facility] [address] [id number] [place] [address] May, [facility] [address] [id number] [place] [address] Apr, [facility] [id number] [place] [address] Jan, [facility] [address] [id number] [place] [address] Dec, [facility] [address] [id number] [place] [address] Dec, [facility] [id number] [place] [address] Nov, [facility] [id number] [place] [address] Oct, [facility] [address] [id number] [place] [address] 19 Oct, 2011 [facility] [address] [id number] [place] [address] 18 Aug, 2011 [facility] [id number] [place] [address] 18 Aug, 2011 [facility] [address] [id number] [place] [address] 18 Aug, 2011 [facility] [id number] [place] [address] 14 Aug, 2011 [facility] [address] [facility] [id number] [place] [address] 11 Aug, 2011 [facility] [address] [id number] [place] [address] 11 Aug, 2011 [facility] [address] [id number] [place] [address] 19 May, 2011 [facility] [address] [id number] [place] [address] 13 Apr, 2011 [facility] [address] [id number] [place] [address] 18 Feb, 2011 [facility] [address] [id number] [place] [address] Oct, [facility] [address] [id number] [place] [address] Oct, [facility] [address] [id number] [place] [address] Oct, [facility] [address] [id number] [place] [address] Sep, [facility] [address] [id number] [place] [address] 26 Aug, 2010 [facility] [address] [id number] [place] [address] 16 Jul, 2010 [facility] [address] [id number] [place] [address] 13 May, 2010 [facility] [address] [id number] [place] [address] Dec, [facility] [address] [id number] [place] [address] Nov, [facility] [address] [id number] [place] [address] 14 Oct, 2009 [facility] [address] [id number] [place] [address] Sep, [facility] [address] [id number] [place] [address] Sep, [facility] [place] [address] [id number] [place] [address] Jul, [facility] [place] [address] [id number] [place] [address] Jun, [facility] [place] [address] [id number] [place] [address] May, IMMUNIZATIONS No Known Immunizations SOCIAL HISTORY [...]
--- OUTSIDE RECORDS SUMMARY | 2020-06-11 20:55 | XMS REPORT ---
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 Name Role Phone PAULA ROBLEDO Unavailable PROBLEMS Type Condition ICD9-CM Code NFT04-HX Code Onset Dates Condition S tatus SNOMED Code Problem Raynauds disease I73.00 Active 195 506080 Problem Venous insufficiency I87.2 Active 94590889 Problem Other chronic pain G89.29 Active 8 8703572 Problem Hypokalemia E87.6 Active 23241342 Problem Prediabetes R73.03 Active 23409211 2 Problem Low back pain M54.5 Active 113238 009 Problem Congenital deafness H90.5 Active 50935108 Problem Dysthymia F34.1 Active 25308101 Problem Neuropathy G62.9 Active [id number] ALLERGIES No Information ENCOUNTERS Encounter Location Date Diagnosis [facility] [address] [address] Dec, Neuropathy G62.9 [facility] [address] [address] Nov, Raynauds disease I73.00 ; Venous insuffi ciency I87.2 ; Prediabetes R73.03 and Neuropathy G62.9 [facility] [id number] [place] [address] Jun, Congenital deafness H90.5 [facility] [address] [address] Jun, Other chronic pain G89.29 [facility] [address] [address] Jun, Acute kidney injury N17.9 [facility] [address] [facility] [id number] [address] [address] Jan, Abscess of left knee L02.416 [place] [address] [address] Jan, Prediabetes R73.03 ; Raynauds disease I7 3.00 and Venous insufficiency I87.2 [place] [address] [address] Oct, Neuropathy G62.9 ; Low back pain M54.5 a nd URI (upper respiratory infection) J06.9 [place] [address] [address] Jul, Raynauds disease I73.00 and Hypokalemia E87.6 [place] [address] [address] May, Medicare annual wellness visit, initial Z00.00 ; Dysthymia F34.1 ; Raynauds disease I73.00 ; Venous insufficiency I87.2 ; Congenital deafness H90.5 and Neuropathy G62.9 [place] [address] [address] Apr, [place] [address] [address] Apr, Prediabetes R73.03 ; Raynauds disease I7 3.00 ; Venous insufficiency I87.2 ; Neuropathy G62.9 and Dysthymia F34.1 [place] [address] [address] March, [place] [address] [address] Sep, Hyperglycemia R73.9 [place] [address] [address] Sep, Hyperglycemia R73.9 [place] [address] [address] Sep, Raynauds disease I73.00 ; Venous insuffi ciency I87.2 and Encounter for immunization Z23 [place] [address] [address] Jun, [place] [address] [address] May, [place] [address] [address] May, Other chronic pain G89.29 [place] [address] [address] May, Raynauds disease I73.00 ; Venous insuffi ciency I87.2 and Low back pain M54.5 [place] [address] [address] Dec, Raynauds disease I73.00 ; Venous insuffi ciency I87.2 ; Low back pain M54.5 and Other chronic pain G89.29 [place] [address] [address] Nov, [place] [address] [address] Nov, Muscle spasm M62.838 [facility] [id number] [place] [address] Nov, [place] [address] [address] Oct, Folliculitis L73.9 and Venous insufficie ncy I87.2 [place] [address] [address] Sep, Dermatitis L30.9 and Raynauds disease I7 3.00 [facility] [id number] [place] [address] Sep, Rash and nonspecific skin er uption R21 [place] [address] [address] Aug, Skin infection L08.9 [facility] [address] [address] May, Infected smith L08.9 [facility] [address] [address] May, Skin infection L08.9 [facility] [address] [address] Dec, [facility] [address] [address] Nov, [facility] [address] [address] Nov, [facility] [address] [address] Nov, Raynauds disease I73.00 [place] [address] [address] Nov, Raynauds disease I73.00 ; Leg cramps R25 .2 ; Venous insufficiency I87.2 and Routine adult health maintenance Z00.00 [place] [address] [address] Jul, Infected sebaceous cyst 706.2 [facility] [address] [address] Jun, [facility] [address] [address] Jun, [facility] [address] [address] Jun, Venous insufficiency 459.81 and Raynauds disease 443.0 [facility] [address] [address] Feb, [facility] [address] [address] Feb, [facility] [address] [address] Jan, [facility] [address] [id number] [place] [address] Jan, [facility] [address] [id number] [place] [address] Dec, [facility] [address] [id number] [place] [address] Dec, [facility] [address] [id number] [place] [address] Dec, [facility] [address] [id number] [place] [address] Dec, [facility] [address] [id number] [place] [address] Nov, [facility] [address] [id number] [place] [address] Nov, [facility] [address] [id number] [place] [address] Oct, [facility] [address] [id number] [place] [address] Oct, [facility] [address] [id number] [place] [address] Aug, [facility] [address] [id number] [place] [address] Aug, [facility] [address] [id number] [place] [address] Aug, [facility] [address] [id number] [place] [address] Jul, 2013 [facility] [address] [id number] [place] [address] Jul, 2013 [facility] [address] [id number] [place] [address] Jul, 2013 [facility] [address] [id number] [place] [address] Jul, 2013 [facility] [address] [id number] [place] [address] Jun, [facility] [address] [id number] [facility] [place] [address] Jun, [facility] [address] [facility] [id number] [place] [address] Jun, [facility] [address] [id number] [place] [address] Jun, [facility] [address] [facility] [id number] [place] [address] May, [facility] [address] [facility] [id number] [place] [address] May, [facility] [address] [id number] [place] [address] May, [facility] [address] [id number] [place] [address] May, [facility] [address] [id number] [place] [address] May, [facility] [address] [facility] [id number] [place] [address] May, [facility] [address] [id number] [place] [address] May, [facility] [address] [id number] [place] [address] Apr, [facility] [address] [id number] [place] [address] Apr, [facility] [address] [facility] [id number] [place] [address] Apr, [facility] [address] [id number] [place] [address] Apr, [facility] [address] [id number] [place] [address] March, [facility] [address] [id number] [place] [address] March, [facility] [address] [id number] [place] [address] March, [facility] [address] [id number] [place] [address] March, [facility] [address] [id number] [place] [address] March, [facility] [address] [id number] [place] [address] March, [facility] [address] [id number] [place] [address] March, [facility] [address] [id number] [place] [address] Feb, [facility] [address] [id number] [place] [address] Feb, [address] [id number] Feb, [facility] [address] [id number] [place] [address] Feb, [facility] [address] [id number] [place] [address] Feb, [facility] [address] [id number] [place] [address] Feb, [facility] [address] [id number] [place] [address] Jan, [facility] [address] [id number] [place] [address] Jan, [facility] [address] [id number] [place] [address] Jan, [facility] [address] [id number] [place] [address] Jan, [facility] [address] [id number] [place] [address] Jan, [facility] [address] [id number] [place] [address] Jan, [facility] [address] [id number] [place] [address] Jan, [facility] [address] [id number] [place] [address] Jan, [facility] [address] [id number] [place] [address] Jan, [facility] [address] [id number] [place] [address] Jan, [facility] [address] [facility] [id number] [place] [address] Jan, [facility] [address] [id number] [place] [address] Jan, [facility] [address] [id number] [place] [address] Jan, [facility] [address] [id number] [place] [address] Jan, [facility] [address] [id number] [place] [address] Jan, [facility] [address] [id number] [place] [address] Jan, [facility] [address] [id number] [place] [address] Jan, [facility] [address] [id number] [place] [address] Jan, [facility] [address] [id number] [place] [address] Dec, [facility] [address] [id number] [place] [address] Dec, [facility] [address] [id number] [place] [address] Dec, [facility] [address] [id number] [place] [address] Dec, [facility] [address] [id number] [place] [address] 14 Dec, 2013 [facility] [address] [id number] [place] [address] Dec, [facility] [address] [id number] [place] [address] Dec, [facility] [address] [id number] [place] [address] Dec, [facility] [address] [id number] [place] [address] Dec, [facility] [address] [id number] [place] [address] Dec, [facility] [address] [id number] [place] [address] Dec, [facility] [address] [id number] [place] [address] Dec, [facility] [address] [id number] [place] [address] Nov, [facility] [address] [id number] [place] [address] Nov, [facility] [address] [id number] [place] [address] Nov, [facility] [address] [id number] [place] [address] Nov, [facility] [address] [id number] [place] [address] Nov, [facility] [address] [id number] [place] [address] Nov, [facility] [id number] [place] [address] Nov, [facility] [address] [id number] [place] [address] Oct, [facility] [address] [id number] [place] [address] Oct, [facility] [address] [id number] [place] [address] Sep, [facility] [address] [id number] [place] [address] Sep, [facility] [address] [id number] [place] [address] Sep, [facility] [address] [id number] [place] [address] Sep, [facility] [address] [id number] [place] [address] Aug, [facility] [address] [id number] [place] [address] Aug, [facility] [address] [id number] [place] [address] Aug, [facility] [address] [id number] [place] [address] Jul, [facility] [address] [id number] [place] [address] Jul, [facility] [address] [id number] [place] [address] Jun, [facility] [address] [id number] [place] [address] Jun, [facility] [address] [id number] [place] [address] Jun, [facility] [address] [id number] [place] [address] May, [facility] [address] [id number] [place] [address] May, [facility] [address] [id number] [place] [address] May, [facility] [address] [id number] [place] [address] Apr, [facility] [address] [id number] [place] [address] Apr, [facility] [address] [id number] [place] [address] March, [facility] [address] [id number] [place] [address] Feb, [facility] [address] [id number] [place] [address] Jan, [facility] [address] [id number] [place] [address] Jan, [facility] [address] [id number] [place] [address] Dec, [facility] [address] [id number] [place] [address] Nov, [facility] [address] [id number] [place] [address] Oct, [facility] [id number] [place] [address] Oct, [facility] [address] [id number] [place] [address] Sep, [facility] [id number] [place] [address] Sep, [facility] [address] [id number] [place] [address] Sep, [facility] [id number] [place] [address] Sep, [facility] [address] [id number] [place] [address] Sep, [facility] [id number] [place] [address] Sep, [facility] [address] [id number] [place] [address] Sep, [facility] [id number] [place] [address] Sep, [facility] [address] [id number] [place] [address] Jul, [facility] [address] [id number] [place] [address] Jun, [facility] [address] [id number] [place] [address] Jun, [facility] [address] [id number] [place] [address] Jun, [facility] [address] [id number] [place] [address] Jun, [facility] [address] [id number] [place] [address] May, [facility] [address] [id number] [place] [address] Apr, [facility] [id number] [place] [address] Jan, [facility] [address] [id number] [place] [address] Dec, [facility] [address] [id number] [place] [address] Dec, [facility] [id number] [place] [address] Nov, [facility] [id number] [place] [address] Oct, [facility] [address] [id number] [place] [address] 19 Oct, 2011 [facility] [address] [id number] [place] [address] 18 Aug, 2011 [facility] [id number] [place] [address] 18 Aug, 2011 [facility] [address] [id number] [place] [address] 18 Aug, 2011 [facility] [id number] [place] [address] 14 Aug, 2011 [facility] [address] [facility] [id number] [place] [address] 11 Aug, 2011 [facility] [address] [id number] [place] [address] 11 Aug, 2011 [facility] [address] [id number] [place] [address] 19 May, 2011 [facility] [address] [id number] [place] [address] 13 Apr, 2011 [facility] [address] [id number] [place] [address] 18 Feb, 2011 [facility] [address] [id number] [place] [address] Oct, [facility] [address] [id number] [place] [address] Oct, [facility] [address] [id number] [place] [address] Oct, [facility] [address] [id number] [place] [address] Sep, [facility] [address] [id number] [place] [address] 26 Aug, 2010 [facility] [address] [id number] [place] [address] 16 Jul, 2010 [facility] [address] [id number] [place] [address] 13 May, 2010 [facility] [address] [id number] [place] [address] Dec[facility] [address] [id number] [place] [address] Nov, [facility] [address] [id number] [place] [address] 14 Oct, 2009 [facility] [address] [id number] [place] [address] Sep, [facility] [address] [id number] [place] [address] Sep, [facility] [address] [id number] [place] [address] Jul, [facility] [address] [id number] [place] [address] Jun, [facility] [address] [id number] [place] [address] May, IMMUNIZATIONS No Known Immunizations SOCIAL HISTORY [...]
--- OUTSIDE RECORDS SUMMARY | 2020-06-11 20:55 | XMS REPORT ---
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 Name Role Phone PAULA ROBLEDO Unavailable PROBLEMS Type Condition ICD9-CM Code AQS52-DA Code Onset Dates Condition S tatus SNOMED Code Problem Raynauds disease I73.00 Active 195 422746 Problem Venous insufficiency I87.2 Active 25592757 Problem Other chronic pain G89.29 Active 8 4012941 Problem Hypokalemia E87.6 Active 01922331 Problem Prediabetes R73.03 Active 12848399 2 Problem Low back pain M54.5 Active 022441 009 Problem Congenital deafness H90.5 Active 76162064 Problem Dysthymia F34.1 Active 46048587 Problem Neuropathy G62.9 Active [id number] ALLERGIES No Information ENCOUNTERS Encounter Location Date Diagnosis [facility] [address] [address] Dec, Neuropathy G62.9 [facility] [address] [address] Nov, Raynauds disease I73.00 ; Venous insuffi ciency I87.2 ; Prediabetes R73.03 and Neuropathy G62.9 [facility] [id number] [place] [address] Jun, Congenital deafness H90.5 [facility] [address] [address] Jun, Other chronic pain G89.29 [facility] [address] [address] Jun, Acute kidney injury N17.9 [facility] [address] [facility] [id number] [address] [address] Jan, Abscess of left knee L02.416 [place] [address] [address] Jan, Prediabetes R73.03 ; Raynauds disease I7 3.00 and Venous insufficiency I87.2 [place] [address] [address] Oct, Neuropathy G62.9 ; Low back pain M54.5 a nd URI (upper respiratory infection) J06.9 [place] [address] [address] Jul, Raynauds disease I73.00 and Hypokalemia E87.6 [place] [address] [address] May, Medicare annual wellness visit, initial Z00.00 ; Dysthymia F34.1 ; Raynauds disease I73.00 ; Venous insufficiency I87.2 ; Congenital deafness H90.5 and Neuropathy G62.9 [place] [address] [address] Apr, [place] [address] [address] Apr, Prediabetes R73.03 ; Raynauds disease I7 3.00 ; Venous insufficiency I87.2 ; Neuropathy G62.9 and Dysthymia F34.1 [place] [address] [address] March, [place] [address] [address] Sep, Hyperglycemia R73.9 [place] [address] [address] Sep, Hyperglycemia R73.9 [place] [address] [address] Sep, Raynauds disease I73.00 ; Venous insuffi ciency I87.2 and Encounter for immunization Z23 [place] [address] [address] Jun, [place] [address] [address] May, [place] [address] [address] May, Other chronic pain G89.29 [place] [address] [address] May, Raynauds disease I73.00 ; Venous insuffi ciency I87.2 and Low back pain M54.5 [place] [address] [address] Dec, Raynauds disease I73.00 ; Venous insuffi ciency I87.2 ; Low back pain M54.5 and Other chronic pain G89.29 [place] [address] [address] Nov, [place] [address] [address] Nov, Muscle spasm M62.838 [facility] [id number] [place] [address] Nov, [place] [address] [address] Oct, Folliculitis L73.9 and Venous insufficie ncy I87.2 [place] [address] [address] Sep, Dermatitis L30.9 and Raynauds disease I7 3.00 [facility] [address] [id number] [address] [place] [address] Sep, Rash and nonspecific skin er uption R21 [place] [address] [address] Aug, Skin infection L08.9 [facility] [address] [address] May, Infected smith L08.9 [facility] [address] [address] May, Skin infection L08.9 [facility] [address] [address] Dec, [facility] [address] [address] Nov, [facility] [address] [address] Nov, [facility] [address] [address] Nov, Raynauds disease I73.00 [place] [address] [address] Nov, Raynauds disease I73.00 ; Leg cramps R25 .2 ; Venous insufficiency I87.2 and Routine adult health maintenance Z00.00 [place] [address] [address] Jul, Infected sebaceous cyst 706.2 [facility] [address] [address] Jun, [facility] [address] [address] Jun, [facility] [address] [address] Jun, Venous insufficiency 459.81 and Raynauds disease 443.0 [facility] [address] [address] Feb, [facility] [address] [address] Feb, [facility] [address] [address] Jan, [facility] [address] [id number] [place] [address] Jan, [facility] [address] [id number] [place] [address] Dec, [facility] [address] [id number] [place] [address] Dec, [facility] [address] [id number] [place] [address] Dec, [facility] [address] [id number] [place] [address] Dec, [facility] [address] [id number] [place] [address] Nov, [facility] [address] [id number] [place] [address] Nov, [facility] [address] [id number] [place] [address] Oct, [facility] [address] [id number] [place] [address] Oct, [facility] [address] [id number] [place] [address] Aug, [facility] [address] [id number] [place] [address] Aug, [facility] [address] [id number] [place] [address] Aug, [facility] [address] [id number] [place] [address] Jul, 2013 [facility] [address] [id number] [place] [address] Jul, 2013 [facility] [address] [id number] [place] [address] Jul, 2013 [facility] [address] [id number] [place] [address] Jul, 2013 [facility] [address] [id number] [place] [address] Jun, [facility] [address] [id number] [facility] [place] [address] Jun, [facility] [address] [facility] [id number] [place] [address] Jun, [facility] [address] [id number] [place] [address] Jun, [facility] [address] [facility] [id number] [place] [address] May, [facility] [address] [facility] [id number] [place] [address] May, [facility] [address] [id number] [place] [address] May, [facility] [address] [id number] [place] [address] May, [facility] [address] [id number] [place] [address] May, [facility] [address] [facility] [id number] [place] [address] May, [facility] [address] [id number] [place] [address] May, [facility] [address] [id number] [place] [address] Apr, [facility] [address] [id number] [place] [address] Apr, [facility] [address] [facility] [id number] [place] [address] Apr, [facility] [address] [id number] [place] [address] Apr, [facility] [address] [id number] [place] [address] March, [facility] [address] [id number] [place] [address] March, [facility] [address] [id number] [place] [address] March, [facility] [address] [id number] [place] [address] March, [facility] [address] [id number] [place] [address] March, [facility] [address] [id number] [place] [address] March, [facility] [address] [id number] [place] [address] March, [facility] [address] [id number] [place] [address] Feb, [facility] [address] [id number] [place] [address] Feb, [address] [id number] Feb, [facility] [address] [id number] [place] [address] Feb, [facility] [address] [id number] [place] [address] Feb, [facility] [address] [id number] [place] [address] Feb, [facility] [address] [id number] [place] [address] Jan, [facility] [address] [id number] [place] [address] Jan, [facility] [address] [id number] [place] [address] Jan, [facility] [address] [id number] [place] [address] Jan, [facility] [address] [id number] [place] [address] Jan, [facility] [address] [id number] [place] [address] Jan, [facility] [address] [id number] [place] [address] Jan, [facility] [address] [id number] [place] [address] Jan, [facility] [address] [id number] [place] [address] Jan, [facility] [address] [id number] [place] [address] Jan, [facility] [address] [facility] [id number] [place] [address] Jan, [facility] [address] [id number] [place] [address] Jan, [facility] [address] [id number] [place] [address] Jan, [facility] [address] [id number] [place] [address] Jan, [facility] [address] [id number] [place] [address] Jan, [facility] [address] [id number] [place] [address] Jan, [facility] [address] [id number] [place] [address] Jan, [facility] [address] [id number] [place] [address] Jan, [facility] [address] [id number] [place] [address] Dec, [facility] [address] [id number] [place] [address] Dec, [facility] [address] [id number] [place] [address] Dec, [facility] [address] [id number] [place] [address] Dec, [facility] [address] [id number] [place] [address] 14 Dec, 2013 [facility] [address] [id number] [place] [address] Dec, [facility] [address] [id number] [place] [address] Dec, [facility] [address] [id number] [place] [address] Dec, [facility] [address] [id number] [place] [address] Dec, [facility] [address] [id number] [place] [address] Dec, [facility] [address] [id number] [place] [address] Dec, [facility] [address] [id number] [place] [address] Dec, [facility] [address] [id number] [place] [address] Nov, [facility] [address] [id number] [place] [address] Nov, [facility] [address] [id number] [place] [address] Nov, [facility] [address] [id number] [place] [address] Nov, [facility] [address] [id number] [place] [address] Nov, [facility] [address] [id number] [place] [address] Nov, [facility] [id number] [place] [address] Nov, [facility] [address] [id number] [place] [address] Oct, [facility] [address] [id number] [place] [address] Oct, [facility] [address] [id number] [place] [address] Sep, [facility] [address] [id number] [place] [address] Sep, [facility] [address] [id number] [place] [address] Sep, [facility] [address] [id number] [place] [address] Sep, [facility] [address] [id number] [place] [address] Aug, [facility] [address] [id number] [place] [address] Aug, [facility] [address] [id number] [place] [address] Aug, [facility] [address] [id number] [place] [address] Jul, [facility] [address] [id number] [place] [address] Jul, [facility] [address] [id number] [place] [address] Jun, [facility] [address] [id number] [place] [address] Jun, [facility] [address] [id number] [place] [address] Jun, [facility] [address] [id number] [place] [address] May, [facility] [address] [id number] [place] [address] May, [facility] [address] [id number] [place] [address] May, [facility] [address] [id number] [place] [address] Apr, [facility] [address] [id number] [place] [address] Apr, [facility] [address] [id number] [place] [address] March, [facility] [address] [id number] [place] [address] Feb, [facility] [address] [id number] [place] [address] Jan, [facility] [address] [id number] [place] [address] Jan, [facility] [address] [id number] [place] [address] Dec, [facility] [address] [id number] [place] [address] Nov, [facility] [address] [id number] [place] [address] Oct, [facility] [id number] [place] [address] Oct, [facility] [address] [id number] [place] [address] Sep, [facility] [id number] [place] [address] Sep, [facility] [address] [id number] [place] [address] Sep, [facility] [id number] [place] [address] Sep, [facility] [address] [id number] [place] [address] Sep, [facility] [id number] [place] [address] Sep, [facility] [address] [id number] [place] [address] Sep, [facility] [id number] [place] [address] Sep, [facility] [address] [id number] [place] [address] Jul, [facility] [address] [id number] [place] [address] Jun, [facility] [address] [id number] [place] [address] Jun, [facility] [address] [id number] [place] [address] Jun, [facility] [address] [id number] [place] [address] Jun, [facility] [address] [id number] [place] [address] May, [facility] [address] [id number] [place] [address] Apr, [facility] [id number] [place] [address] Jan, [facility] [address] [id number] [place] [address] Dec, [facility] [address] [id number] [place] [address] Dec, [facility] [id number] [place] [address] Nov, [facility] [id number] [place] [address] Oct, [facility] [address] [id number] [place] [address] 19 Oct, 2011 [facility] [address] [id number] [place] [address] 18 Aug, 2011 [facility] [id number] [place] [address] 18 Aug, 2011 [facility] [address] [id number] [place] [address] 18 Aug, 2011 [facility] [id number] [place] [address] 14 Aug, 2011 [facility] [address] [facility] [id number] [place] [address] 11 Aug, 2011 [facility] [address] [id number] [place] [address] 11 Aug, 2011 [facility] [address] [id number] [place] [address] 19 May, 2011 [facility] [address] [id number] [place] [address] 13 Apr, 2011 [facility] [address] [id number] [place] [address] 18 Feb, 2011 [facility] [address] [id number] [place] [address] Oct, [facility] [address] [id number] [place] [address] Oct, [facility] [address] [id number] [place] [address] Oct, [facility] [address] [id number] [place] [address] Sep, [facility] [address] [id number] [place] [address] 26 Aug, 2010 [facility] [address] [id number] [place] [address] 16 Jul, 2010 [facility] [address] [id number] [place] [address] 13 May, 2010 [facility] [address] [id number] [place] [address] Dec, [facility] [address] [id number] [place] [address] Nov, [facility] [address] [id number] [place] [address] 14 Oct, 2009 [facility] [address] [id number] [place] [address] Sep, [facility] [address] [id number] [place] [address] Sep, [facility] [address] [id number] [place] [address] Jul, [facility] [address] [id number] [place] [address] Jun, [facility] [address] [id number] [place] [address] May, IMMUNIZATIONS No Known Immunizations SOCIAL HISTORY [...]
--- OUTSIDE RECORDS SUMMARY | 2020-06-11 20:55 | XMS REPORT ---
Author Author Jd ROBLEDO Organization [facility] Address [address] [place] [address] Care Team Providers Care Fight Manager Name Role Phone PAULA ROBLEDO Unavailable PROBLEMS Type Condition ICD9-CM Code SXA47-XE Code Onset Dates Condition S tatus SNOMED Code Problem Raynauds disease I73.00 Active 195 594152 Problem Venous insufficiency I87.2 Active 59725006 Problem Other chronic pain G89.29 Active 8 8950605 Problem Hypokalemia E87.6 Active 78347416 Problem Prediabetes R73.03 Active 40547072 2 Problem Low back pain M54.5 Active 522593 009 Problem Congenital deafness H90.5 Active 85693493 Problem Dysthymia F34.1 Active 20294259 Problem Neuropathy G62.9 Active [id number] ALLERGIES No Information ENCOUNTERS Encounter Location Date Diagnosis [facility] [id number] [place] [address] Nov, Raynauds disease I73.00 ; Venous insuffi ciency I87.2 ; Prediabetes R73.03 and Neuropathy G62.9 [facility] [id number] [place] [address] Jun, Congenital deafness H90.5 [facility] [id number] [place] [address] Jun, Other chronic pain G89.29 [facility] [id number] [place] [address] Jun, Acute kidney injury N17.9 [facility] [address] [facility] [id number] [address] [place] [address] Jan, Abscess of left knee L02.416 [facility] [address] [id number] [place] [address] Jan, Prediabetes R73.03 ; Raynauds disease I7 3.00 and Venous insufficiency I87.2 [address] [address] [address] Oct, Neuropathy G62.9 ; Low back pain M54.5 a nd URI (upper respiratory infection) J06.9 [place] [address] [address] Jul, Raynauds disease I73.00 and Hypokalemia E87.6 [place] [address] [address] May, Medicare annual wellness visit, initial Z00.00 ; Dysthymia F34.1 ; Raynauds disease I73.00 ; Venous insufficiency I87.2 ; Congenital deafness H90.5 and Neuropathy G62.9 [place] [address] [address] Apr, [place] [address] [address] Apr, Prediabetes R73.03 ; Raynauds disease I7 3.00 ; Venous insufficiency I87.2 ; Neuropathy G62.9 and Dysthymia F34.1 [place] [address] [address] March, [place] [address] [address] Sep, Hyperglycemia R73.9 [place] [address] [address] Sep, Hyperglycemia R73.9 [place] [address] [address] Sep, Raynauds disease I73.00 ; Venous insuffi ciency I87.2 and Encounter for immunization Z23 [place] [address] [address] Jun, [facility] [address] [address] May, [facility] [address] [address] May, Other chronic pain G89.29 [facility] [address] [address] May, Raynauds disease I73.00 ; Venous insuffi ciency I87.2 and Low back pain M54.5 [place] [address] [address] Dec, Raynauds disease I73.00 ; Venous insuffi ciency I87.2 ; Low back pain M54.5 and Other chronic pain G89.29 [place] [address] [address] Nov, [place] [address] [address] Nov, Muscle spasm M62.838 [facility] [address] [facility] [id number] [place] [address] Nov, [facility] [address] [address] Oct, Folliculitis L73.9 and Venous insufficie ncy I87.2 [place] [address] [address] Sep, Dermatitis L30.9 and Raynauds disease I7 3.00 [facility] [address] [facility] [id number] [address] [place] [address] Sep, Rash and nonspecific skin er uption R21 [place] [address] [address] Aug, Skin infection L08.9 [place] [address] [address] May, Infected smith L08.9 [facility] [address] [address] May, Skin infection L08.9 [facility] [address] [address] Dec, [facility] [address] [address] Nov, [facility] [address] [address] Nov, [facility] [address] [address] Nov, Raynauds disease I73.00 [facility] [address] [address] Nov, Raynauds disease I73.00 ; Leg cramps R25 .2 ; Venous insufficiency I87.2 and Routine adult health maintenance Z00.00 [facility] [address] [address] Jul, Infected sebaceous cyst 706.2 [facility] [address] [address] Jun, [facility] [address] [address] Jun, [facility] [address] [address] Jun, Venous insufficiency 459.81 and Raynauds disease 443.0 [facility] [address] [address] Feb, [facility] [address] [address] Feb, [facility] [address] [address] Jan, [facility] [address] [address] Jan, [facility] [place] [facility] [address] [facility] [id number] [place] [address] Dec, [facility] [place] [facility] [address] [id number] [place] [address] Dec, [facility] [place] [facility] [address] [id number] [place] [address] Dec, [facility] [place] [facility] [address] [id number] [place] [address] Dec, [facility] [place] [facility] [address] [id number] [place] [address] Nov, [facility] [place] [facility] [address] [id number] [place] [address] Nov, [facility] [place] [facility] [address] [id number] [place] [address] Oct, [facility] [place] [facility] [id number] [place] [address] Oct, [facility] [place] [facility] [address] [id number] [place] [address] Aug, [facility] [place] [facility] [address] [id number] [place] [address] Aug, [facility] [place] [facility] [address] [id number] [place] [address] Aug, [facility] [place] [facility] [address] [id number] [place] [address] Jul, [facility] [place] [facility] [address] [id number] [place] [address] Jul, [facility] [place] [facility] [address] [id number] [place] [address] Jul, [facility] [place] [facility] [address] [id number] [place] [address] Jul, [facility] [place] [facility] [address] [id number] [place] [address] Jun, [facility] [place] [facility] [address] [id number] [place] [address] Jun, [facility] [place] [facility] [address] [facility] [id number] [facility] [place] [address] Jun, [facility] [place] [facility] [address] [facility] [id number] [facility] [place] [address] Jun, [facility] [place] [facility] [address] [facility] [id number] [facility] [place] [address] May, [facility] [place] [facility] [address] [facility] [id number] [place] [address] May, [facility] [place] [facility] [address] [facility] [id number] [facility] [place] [address] May, [facility] [place] [facility] [address] [id number] [facility] [place] [address] May, [facility] [place] [facility] [address] [id number] [facility] [place] [address] May, [facility] [place] [facility] [address] [id number] [place] [address] May, [facility] [place] [facility] [address] [id number] [facility] [place] [address] May, [facility] [place] [facility] [address] [id number] [place] [address] Apr, [facility] [place] [facility] [address] [id number] [place] [address] Apr, [facility] [place] [facility] [address] [id number] [place] [address] Apr, [facility] [place] [facility] [address] [facility] [id number] [place] [address] Apr, [facility] [place] [facility] [address] [id number] [place] [address] March, [facility] [place] [facility] [address] [id number] [place] [address] March, [facility] [place] [facility] [address] [id number] [place] [address] March, [facility] [place] [facility] [address] [id number] [place] [address] March, [facility] [address] [id number] [place] [address] March, [facility] [place] [facility] [address] [id number] [place] [address] March, [facility] [address] [id number] [place] [address] March, [facility] [place] [facility] [address] [id number] [place] [address] Feb, [facility] [address] [id number] [place] [address] Feb, [facility] [address] [place] [id number] Feb, [facility] [address] [id number] [place] [address] Feb, [facility] [address] [id number] [place] [address] Feb, [facility] [place] [facility] [address] [id number] [place] [address] Feb, [facility] [place] [facility] [address] [id number] [place] [address] Jan, [facility] [place] [facility] [address] [id number] [place] [address] Jan, [facility] [place] [facility] [address] [id number] [place] [address] Jan, [facility] [place] [facility] [address] [id number] [place] [address] Jan, [facility] [place] [facility] [address] [id number] [place] [address] Jan, [facility] [place] [facility] [address] [id number] [place] [address] Jan, [facility] [place] [facility] [address] [id number] [place] [address] Jan, [facility] [place] [facility] [address] [facility] [id number] [place] [address] Jan, [facility] [place] [facility] [address] [id number] [place] [address] Jan, [facility] [place] [facility] [address] [id number] [place] [address] Jan, [facility] [place] [facility] [address] [id number] [place] [address] Jan, [facility] [place] [facility] [address] [facility] [id number] [place] [address] Jan, [facility] [place] [facility] [address] [id number] [place] [address] Jan, [facility] [place] [facility] [address] [id number] [place] [address] Jan, [facility] [place] [facility] [address] [id number] [place] [address] Jan, [facility] [place] [facility] [address] [id number] [place] [address] Jan, [facility] [place] [facility] [address] [id number] [place] [address] Jan, [facility] [place] [facility] [address] [id number] [place] [address] Jan, [facility] [place] [facility] [address] [id number] [place] [address] Dec, [facility] [place] [facility] [address] [id number] [place] [address] Dec, [facility] [place] [facility] [address] [id number] [place] [address] Dec, [facility] [place] [facility] [address] [id number] [place] [address] Dec, [facility] [place] [facility] [address] [id number] [place] [address] Dec, [facility] [place] [facility] [address] [id number] [place] [address] Dec, [facility] [place] [facility] [address] [id number] [place] [address] Dec, [facility] [place] [facility] [address] [id number] [place] [address] Dec, [facility] [place] [facility] [address] [id number] [place] [address] Dec, [facility] [place] [facility] [address] [id number] [place] [address] Dec, [facility] [place] [facility] [address] [id number] [place] [address] Dec, [facility] [place] [facility] [address] [id number] [place] [address] Dec, [facility] [place] [facility] [address] [id number] [place] [address] Nov, [facility] [place] [facility] [address] [id number] [place] [address] Nov, [facility] [place] [facility] [address] [id number] [place] [address] Nov, [facility] [place] [facility] [address] [id number] [place] [address] Nov, [facility] [place] [facility] [address] [id number] [place] [address] Nov, [facility] [place] [facility] [address] [id number] [place] [address] Nov, [facility] [place] [facility] [address] [id number] [place] [address] Nov, [facility] [place] [facility] [id number] [place] [address] Oct, [facility] [place] [facility] [address] [id number] [place] [address] Oct, [facility] [place] [facility] [address] [id number] [place] [address] Sep, [facility] [place] [facility] [address] [id number] [place] [address] Sep, [facility] [place] [facility] [address] [id number] [place] [address] Sep, [facility] [place] [facility] [address] [id number] [place] [address] Sep, [facility] [place] [facility] [address] [id number] [place] [address] Aug, [facility] [place] [facility] [address] [id number] [place] [address] Aug, [facility] [place] [facility] [address] [id number] [place] [address] Aug, [facility] [place] [facility] [address] [id number] [place] [address] Jul, [facility] [place] [facility] [address] [id number] [place] [address] Jul, [facility] [place] [facility] [address] [id number] [place] [address] Jun, [facility] [place] [facility] [address] [id number] [place] [address] Jun, [facility] [place] [facility] [address] [id number] [place] [address] Jun, [facility] [place] [facility] [address] [id number] [place] [address] May, [facility] [place] [facility] [address] [id number] [place] [address] May, [facility] [place] [facility] [address] [id number] [place] [address] May, [facility] [place] [facility] [address] [id number] [place] [address] Apr, [facility] [place] [facility] [address] [id number] [place] [address] Apr, [facility] [place] [facility] [address] [id number] [place] [address] March, [facility] [place] [facility] [address] [id number] [place] [address] Feb, [facility] [place] [facility] [address] [id number] [place] [address] Jan, [facility] [place] [facility] [address] [id number] [place] [address] Jan, [facility] [place] [facility] [address] [id number] [place] [address] Dec, [facility] [place] [facility] [address] [id number] [place] [address] Nov, [facility] [place] [facility] [address] [id number] [place] [address] Oct, [facility] [place] [facility] [address] [id number] [place] [address] Oct, [facility] [place] [facility] [address] [id number] [place] [address] 30 Sep, 2012 [facility] [place] [facility] [address] [id number] [place] [address] Sep, [facility] [place] [facility] [address] [id number] [place] [address] Sep, [facility] [place] [facility] [address] [id number] [place] [address] Sep, [facility] [place] [facility] [address] [id number] [place] [address] Sep, [facility] [place] [facility] [address] [id number] [place] [address] Sep, [facility] [place] [facility] [address] [id number] [place] [address] Sep, [facility] [place] [facility] [address] [id number] [place] [address] Sep, [facility] [place] [facility] [address] [id number] [place] [address] Jul, [facility] [place] [facility] [id number] [place] [address] 30 Jun, 2012 [facility] [place] [facility] [address] [id number] [place] [address] Jun, [facility] [place] [facility] [address] [id number] [place] [address] Jun, [facility] [place] [facility] [address] [id number] [place] [address] Jun, [facility] [place] [facility] [address] [id number] [place] [address] May, [facility] [place] [facility] [address] [id number] [place] [address] Apr, [facility] [place] [facility] [address] [id number] [place] [address] Jan, [facility] [place] [facility] [id number] [place] [address] Dec, [facility] [place] [facility] [id number] [place] [address] Dec, [facility] [place] [facility] [address] [id number] [place] [address] Nov, [facility] [place] [facility] [id number] [place] [address] Oct, [facility] [place] [facility] [id number] [place] [address] Oct, [facility] [place] [facility] [id number] [place] [address] 18 Aug, 2011 [facility] [place] [facility] [address] [id number] [place] [address] 18 Aug, 2011 [facility] [place] [facility] [id number] [place] [address] 18 Aug, 2011 [facility] [place] [facility] [address] [id number] [place] [address] 14 Aug, 2011 [facility] [place] [facility] [id number] [place] [address] 11 Aug, 2011 [facility] [place] [facility] [address] [id number] [place] [address] 11 Aug, 2011 [facility] [place] [facility] [address] [id number] [place] [address] 19 May, 2011 [facility] [place] [facility] [address] [id number] [place] [address] 13 Apr, 2011 [facility] [place] [facility] [address] [id number] [place] [address] 18 Feb, 2011 [facility] [place] [facility] [address] [id number] [place] [address] Oct, [facility] [address] [id number] [place] [address] Oct, [facility] [place] [facility] [address] [id number] [place] [address] Oct, [facility] [place] [facility] [address] [id number] [place] [address] Sep, [facility] [place] [facility] [address] [id number] [place] [address] Aug, [facility] [place] [facility] [address] [id number] [place] [address] 16 Jul, 2010 [facility] [place] [facility] [address] [id number] [place] [address] May, [facility] [place] [facility] [address] [id number] [place] [address] Dec, [facility] [place] [facility] [address] [id number] [place] [address] Nov, [facility] [place] [facility] [address] [id number] [place] [address] 14 Oct, 2009 [facility] [place] [facility] [address] [id number] [place] [address] Sep, [facility] [place] [facility] [address] [id number] [place] [address] 05 Sep, 2009 [facility] [place] [facility] [address] [id number] [place] [address] 14 Jul, 2009 [facility] [address] [facility] [id number] [place] [address] Jun, [facility] [address] [facility] [id number] [place] [address] May, IMMUNIZATIONS No Known Immunizations SOCIAL HISTORY Never Assessed REASON FOR VISIT PLAN OF CARE VITAL SIGNS Height 73 in 2014-04-07 Weight 223.5 lbs 2014-04-07 Temperature 97.9 degrees Fahrenheit 2014-04-07 Heart Rate 88 bpm 2014-04-07 Respiratory Rate 18 2014-04-07 Blood pressure systolic 116 mmHg 2014-04-07 Blood pressure diastolic 78 mmHg 2014-04-07 MEDICATIONS No Known Medications RESULTS No Results PROCEDURES Procedure Date Ordered Result Body Site COMPLETE CBC W/AUTO DIFF WBC April 07, 2014 C-REACTIVE PROTEIN April 07, 2014 ASSAY OF GAMMAGLOBULIN IGM April 07, 2014 VENIPUNCT, ROUTINE* April 07, 2014 INSTRUCTIONS MEDICATIONS ADMINISTERED No Known [...]
--- OUTSIDE RECORDS SUMMARY | 2020-06-11 20:55 | XMS REPORT ---
Author Author Jd ROBLEDO Organization [facility] Address [address] [place] [address] Care Team Providers Care Cellular Phone Repairer Name Role Phone PAULA ROBLEDO Unavailable PROBLEMS Type Condition ICD9-CM Code YEV00-OB Code Onset Dates Condition S tatus SNOMED Code Problem Raynauds disease I73.00 Active 195 509296 Problem Venous insufficiency I87.2 Active 14461603 Problem Other chronic pain G89.29 Active 8 7796113 Problem Hypokalemia E87.6 Active 38305861 Problem Prediabetes R73.03 Active 49358594 2 Problem Low back pain M54.5 Active 366279 009 Problem Congenital deafness H90.5 Active 13483433 Problem Dysthymia F34.1 Active 79919569 Problem Neuropathy G62.9 Active 838176302 ALLERGIES No Information ENCOUNTERS Encounter Location Date Diagnosis [facility] [address] [address] 14 Dec, [address] [facility] [address] [address] Nov, Raynauds disease I73.00 ; Venous insuffi ciency I87.2 ; Prediabetes R73.[address] [facility] [id number] [place] [address] Jun, Congenital deafness H90.5 [facility] [address] [address] Jun, Other chronic pain G89.29 [facility] [address] [address] Jun, Acute kidney injury N17.9 [facility] [address] [facility] [id number] [place] [address] Jan, Abscess of left knee L02.416 [place] [address] [address] Jan, Prediabetes R73.03 ; Raynauds disease I7 3.00 and Venous insufficiency I87.2 [place] [address] [address] Oct, Neuropathy G62.9 ; Low back pain M54.5 a nd URI (upper respiratory infection) J06.9 [place] [address] [address] Jul, Raynauds disease I73.00 and Hypokalemia E87.6 [place] [address] [address] May, Medicare annual wellness visit, initial Z00.00 ; Dysthymia F34.1 ; Raynauds disease I73.00 ; Venous insufficiency I87.2 ; Congenital deafness H90.5 and Neuropathy G62.9 [place] [address] [address] Apr, [place] [address] [address] Apr, Prediabetes R73.03 ; Raynauds disease I7 3.00 ; Venous insufficiency I87.2 ; Neuropathy G62.9 and Dysthymia F34.1 [place] [address] [address] March, [place] [address] [address] Sep, Hyperglycemia R73.9 [place] [address] [address] Sep, Hyperglycemia R73.9 [place] [address] [address] Sep, Raynauds disease I73.00 ; Venous insuffi ciency I87.2 and Encounter for immunization Z23 [place] [address] [address] Jun, [place] [address] [address] May, [place] [address] [address] May, Other chronic pain G89.29 [place] [address] [address] May, Raynauds disease I73.00 ; Venous insuffi ciency I87.2 and Low back pain M54.5 [place] [address] [address] Dec, Raynauds disease I73.00 ; Venous insuffi ciency I87.2 ; Low back pain M54.5 and Other chronic pain G89.29 [place] [address] [address] Nov, [place] [address] [address] Nov, Muscle spasm M62.838 [facility] [id number] [place] [address] Nov, [place] [address] [address] Oct, Folliculitis L73.9 and Venous insufficie ncy I87.2 [place] [address] [address] Sep, Dermatitis L30.9 and Raynauds disease I7 3.00 [facility] [id number] [place] [address] Sep, Rash and nonspecific skin er uption R21 [place] [address] [address] Aug, Skin infection L08.9 [facility] [address] [address] May, Infected smith L08.9 [facility] [address] [address] May, Skin infection L08.9 [facility] [address] [address] Dec, [facility] [address] [address] Nov, [facility] [address] [address] Nov, [facility] [address] [address] Nov, Raynauds disease I73.00 [place] [address] [address] Nov, Raynauds disease I73.00 ; Leg cramps R25 .2 ; Venous insufficiency I87.2 and Routine adult health maintenance Z00.00 [place] [address] [address] Jul, Infected sebaceous cyst 706.2 [facility] [address] [address] Jun, [facility] [address] [address] Jun, [facility] [address] [address] Jun, Venous insufficiency 459.[address] [facility] [address] [address] Feb, [facility] [address] [address] Feb, [facility] [address] [address] Jan, [facility] [address] [id number] [place] [address] Jan, [facility] [address] [id number] [place] [address] Dec, [facility] [address] [id number] [place] [address] Dec, [facility] [address] [id number] [place] [address] Dec, [facility] [address] [id number] [place] [address] Dec, [facility] [address] [id number] [place] [address] Nov, [facility] [address] [id number] [place] [address] Nov, [facility] [address] [id number] [place] [address] Oct, [facility] [address] [id number] [place] [address] Oct, [facility] [address] [id number] [place] [address] Aug, [facility] [address] [id number] [place] [address] Aug, [facility] [address] [id number] [place] [address] Aug, [facility] [address] [id number] [place] [address] Jul, 2013 [facility] [address] [id number] [place] [address] Jul, 2013 [facility] [address] [id number] [place] [address] Jul, 2013 [facility] [address] [id number] [place] [address] Jul, 2013 [facility] [address] [id number] [place] [address] Jun, [facility] [address] [id number] [facility] [place] [address] Jun, [facility] [address] [facility] [id number] [place] [address] Jun, [facility] [address] [id number] [place] [address] Jun, [facility] [address] [facility] [id number] [place] [address] May, [facility] [address] [facility] [id number] [place] [address] May, [facility] [address] [id number] [place] [address] May, [facility] [address] [id number] [place] [address] May, [facility] [address] [id number] [place] [address] May, [facility] [address] [facility] [id number] [place] [address] May, [facility] [address] [id number] [place] [address] May, [facility] [address] [id number] [place] [address] Apr, [facility] [address] [id number] [place] [address] Apr, [facility] [address] [facility] [id number] [place] [address] Apr, [facility] [address] [id number] [place] [address] Apr, [facility] [address] [id number] [place] [address] March, [facility] [address] [id number] [place] [address] March, [facility] [address] [id number] [place] [address] March, [facility] [address] [id number] [place] [address] March, [facility] [address] [id number] [place] [address] March, [facility] [address] [id number] [place] [address] March, [facility] [address] [id number] [place] [address] March, [facility] [address] [id number] [place] [address] Feb, [facility] [address] [id number] [place] [address] Feb, [address] [id number] Feb, [facility] [address] [id number] [place] [address] Feb, [facility] [address] [id number] [place] [address] Feb, [facility] [address] [id number] [place] [address] Feb, [facility] [address] [id number] [place] [address] Jan, [facility] [address] [id number] [place] [address] Jan, [facility] [address] [id number] [place] [address] Jan, [facility] [address] [id number] [place] [address] Jan, [facility] [address] [id number] [place] [address] Jan, [facility] [address] [id number] [place] [address] Jan, [facility] [address] [id number] [place] [address] Jan, [facility] [address] [id number] [place] [address] Jan, [facility] [address] [id number] [place] [address] Jan, [facility] [address] [id number] [place] [address] Jan, [facility] [address] [facility] [id number] [place] [address] Jan, [facility] [address] [id number] [place] [address] Jan, [facility] [address] [id number] [place] [address] Jan, [facility] [address] [id number] [place] [address] Jan, [facility] [address] [id number] [place] [address] Jan, [facility] [address] [id number] [place] [address] Jan, [facility] [address] [id number] [place] [address] Jan, [facility] [address] [id number] [place] [address] Jan, [facility] [address] [id number] [place] [address] Dec, [facility] [address] [id number] [place] [address] Dec, [facility] [address] [id number] [place] [address] Dec, [facility] [address] [id number] [place] [address] Dec, [facility] [address] [id number] [place] [address] 14 Dec, 2013 [facility] [address] [id number] [place] [address] Dec, [facility] [address] [id number] [place] [address] Dec, [facility] [address] [id number] [place] [address] Dec, [facility] [address] [id number] [place] [address] Dec, [facility] [address] [id number] [place] [address] Dec, [facility] [address] [id number] [place] [address] Dec, [facility] [address] [id number] [place] [address] Dec, [facility] [address] [id number] [place] [address] Nov, [facility] [address] [id number] [place] [address] Nov, [facility] [address] [id number] [place] [address] Nov, [facility] [address] [id number] [place] [address] Nov, [facility] [address] [id number] [place] [address] Nov, [facility] [address] [id number] [place] [address] Nov, [facility] [id number] [place] [address] Nov, [facility] [address] [id number] [place] [address] Oct, [facility] [address] [id number] [place] [address] Oct, [facility] [address] [id number] [place] [address] Sep, [facility] [address] [id number] [place] [address] Sep, [facility] [address] [id number] [place] [address] Sep, [facility] [address] [id number] [place] [address] Sep, [facility] [address] [id number] [place] [address] Aug, [facility] [address] [id number] [place] [address] Aug, [facility] [address] [id number] [place] [address] Aug, [facility] [address] [id number] [place] [address] Jul, [facility] [address] [id number] [place] [address] Jul, [facility] [address] [id number] [place] [address] Jun, [facility] [address] [id number] [place] [address] Jun, [facility] [address] [id number] [place] [address] Jun, [facility] [address] [id number] [place] [address] May, [facility] [address] [id number] [place] [address] May, [facility] [address] [id number] [place] [address] May, [facility] [address] [id number] [place] [address] Apr, [facility] [address] [id number] [place] [address] Apr, [facility] [address] [id number] [place] [address] March, [facility] [address] [id number] [place] [address] Feb, [facility] [address] [id number] [place] [address] Jan, [facility] [address] [id number] [place] [address] Jan, [facility] [address] [id number] [place] [address] Dec, [facility] [address] [id number] [place] [address] Nov, [facility] [address] [id number] [place] [address] Oct, [facility] [id number] [place] [address] Oct, [facility] [address] [id number] [place] [address] Sep, [facility] [id number] [place] [address] Sep, [facility] [address] [id number] [place] [address] Sep, [facility] [id number] [place] [address] Sep, [facility] [address] [id number] [place] [address] Sep, [facility] [id number] [place] [address] Sep, [facility] [address] [id number] [place] [address] Sep, [facility] [id number] [place] [address] Sep, [facility] [address] [id number] [place] [address] Jul, [facility] [address] [id number] [place] [address] Jun, [facility] [address] [id number] [place] [address] Jun, [facility] [address] [id number] [place] [address] Jun, [facility] [address] [id number] [place] [address] Jun, [facility] [address] [id number] [place] [address] May, [facility] [address] [id number] [place] [address] Apr, [facility] [id number] [place] [address] Jan, [facility] [address] [id number] [place] [address] Dec, [facility] [address] [id number] [place] [address] Dec, [facility] [id number] [place] [address] Nov, [facility] [id number] [place] [address] Oct, [facility] [address] [id number] [place] [address] 19 Oct, 2011 [facility] [address] [id number] [place] [address] 18 Aug, 2011 [facility] [id number] [place] [address] 18 Aug, 2011 [facility] [address] [id number] [place] [address] 18 Aug, 2011 [facility] [id number] [place] [address] 14 Aug, 2011 [facility] [address] [facility] [id number] [place] [address] 11 Aug, 2011 [facility] [address] [id number] [place] [address] 11 Aug, 2011 [facility] [address] [id number] [place] [address] 19 May, 2011 [facility] [address] [id number] [place] [address] 13 Apr, 2011 [facility] [address] [id number] [place] [address] 18 Feb, 2011 [facility] [address] [id number] [place] [address] Oct, [facility] [address] [id number] [place] [address] Oct, [facility] [address] [id number] [place] [address] Oct, [facility] [address] [id number] [place] [address] Sep, [facility] [address] [id number] [place] [address] 26 Aug, 2010 [facility] [address] [id number] [place] [address] 16 Jul, 2010 [facility] [address] [id number] [place] [address] 13 May, 2010 [facility] [address] [id number] [place] [address] Dec, [facility] [address] [id number] [place] [address] Nov, [facility] [address] [id number] [place] [address] 14 Oct, 2009 [facility] [address] [id number] [place] [address] Sep, [facility] [address] [id number] [place] [address] Sep, [facility] [address] [id number] [place] [address] Jul, [facility] [address] [id number] [place] [address] Jun, [facility] [address] [id number] [place] [address] May, IMMUNIZATIONS No Known Immunizations SOCIAL HISTORY [...]
--- OUTSIDE RECORDS SUMMARY | 2020-06-11 20:55 | XMS REPORT ---
Author Author Jd MILLIGAN [facility] Address [address] [place] [address] Care Team Providers Care Game Tester Name Role Phone MAJOR MILLIGAN Unavailable PROBLEMS Type Condition ICD9-CM Code [id number] Code Onset Dates Condition S tatus SNOMED Code Problem Raynauds disease I73.00 Active 195 612760 Problem Venous insufficiency I87.2 Active 83721760 Problem Other chronic pain G89.29 Active 8 5814581 Problem Hypokalemia E87.6 Active 71817742 Problem Prediabetes R73.03 Active 39014187 2 Problem Low back pain M54.5 Active 013480 009 Problem Congenital deafness H90.5 Active 86500035 Problem Dysthymia F34.1 Active 43053841 Problem Neuropathy G62.9 Active [id number] ALLERGIES No Information ENCOUNTERS Encounter Location Date Diagnosis [facility] [address] [address] Dec, Neuropathy G62.9 [facility] [address] [address] Nov, Raynauds disease I73.00 ; Venous insuffi ciency I87.2 ; Prediabetes R73.03 and Neuropathy G62.9 [facility] [id number] [place] [address] Jun, Congenital deafness H90.5 [facility] [address] [address] Jun, Other chronic pain G89.29 [facility] [address] [address] Jun, Acute kidney injury N17.9 [facility] [address] [facility] [id number] [place] [address] Jan, Abscess of left knee L02.416 [place] [address] [address] Jan, Prediabetes R73.03 ; Raynauds disease I7 3.00 and Venous insufficiency I87.2 [place] [address] [address] Oct, Neuropathy G62.9 ; Low back pain M54.5 a nd URI (upper respiratory infection) J06.9 [place] [address] [address] Jul, Raynauds disease I73.00 and Hypokalemia E87.6 [place] [address] [address] May, Medicare annual wellness visit, initial Z00.00 ; Dysthymia F34.1 ; Raynauds disease I73.00 ; Venous insufficiency I87.2 ; Congenital deafness H90.5 and Neuropathy G62.9 [place] [address] [address] Apr, [place] [address] [address] Apr, Prediabetes R73.03 ; Raynauds disease I7 3.00 ; Venous insufficiency I87.2 ; Neuropathy G62.9 and Dysthymia F34.1 [place] [address] [address] March, [place] [address] [address] Sep, Hyperglycemia R73.9 [place] [address] [address] Sep, Hyperglycemia R73.9 [place] [address] [address] Sep, Raynauds disease I73.00 ; Venous insuffi ciency I87.2 and Encounter for immunization Z23 [place] [address] [address] Jun, [place] [address] [address] May, [place] [address] [address] May, Other chronic pain G89.29 [place] [address] [address] May, Raynauds disease I73.00 ; Venous insuffi ciency I87.2 and Low back pain M54.5 [place] [address] [address] Dec, Raynauds disease I73.00 ; Venous insuffi ciency I87.2 ; Low back pain M54.5 and Other chronic pain G89.29 [place] [address] [address] Nov, [place] [address] [address] Nov, Muscle spasm M62.838 [facility] [id number] [place] [address] Nov, [place] [address] [address] Oct, Folliculitis L73.9 and Venous insufficie ncy I87.2 [place] [address] [address] Sep, Dermatitis L30.9 and Raynauds disease I7 3.00 [facility] [address] [id number] [place] [address] Sep, Rash and nonspecific skin er uption R21 [place] [address] [address] Aug, Skin infection L08.9 [facility] [address] [address] May, Infected smith L08.9 [facility] [address] [address] May, Skin infection L08.9 [facility] [address] [address] Dec, [facility] [address] [address] Nov, [facility] [address] [address] Nov, [facility] [address] [address] Nov, Raynauds disease I73.00 [place] [address] [address] Nov, Raynauds disease I73.00 ; Leg cramps R25 .2 ; Venous insufficiency I87.2 and Routine adult health maintenance Z00.00 [place] [address] [address] Jul, Infected sebaceous cyst 706.2 [facility] [address] [address] Jun, [facility] [address] [address] Jun, [facility] [address] [address] Jun, Venous insufficiency 459.81 and Raynauds disease 443.0 [facility] [address] [address] Feb, [facility] [address] [address] Feb, [facility] [address] [address] Jan, [facility] [address] [id number] [place] [address] Jan, [facility] [address] [id number] [place] [address] Dec, [facility] [address] [id number] [place] [address] Dec, [facility] [address] [id number] [place] [address] Dec, [facility] [address] [id number] [place] [address] Dec, [facility] [address] [id number] [place] [address] Nov, [facility] [address] [id number] [place] [address] Nov, [facility] [address] [id number] [place] [address] Oct, [facility] [address] [id number] [place] [address] Oct, [facility] [address] [id number] [place] [address] Aug, [facility] [address] [id number] [place] [address] Aug, [facility] [address] [id number] [place] [address] Aug, [facility] [address] [id number] [place] [address] Jul, 2013 [facility] [address] [id number] [place] [address] Jul, 2013 [facility] [address] [id number] [place] [address] Jul, 2013 [facility] [address] [id number] [place] [address] Jul, 2013 [facility] [address] [id number] [place] [address] Jun, [facility] [address] [id number] [place] [address] Jun, [facility] [address] [facility] [id number] [place] [address] Jun, [facility] [address] [id number] [place] [address] Jun, [facility] [address] [facility] [id number] [place] [address] May, [facility] [address] [facility] [id number] [place] [address] May, [facility] [address] [id number] [place] [address] May, [facility] [address] [id number] [place] [address] May, [facility] [address] [id number] [place] [address] May, [facility] [address] [facility] [id number] [place] [address] May, [facility] [address] [id number] [place] [address] May, [facility] [address] [id number] [place] [address] Apr, [facility] [address] [id number] [place] [address] Apr, [facility] [address] [facility] [id number] [place] [address] Apr, [facility] [address] [id number] [place] [address] Apr, [facility] [address] [id number] [place] [address] March, [facility] [address] [id number] [place] [address] March, [facility] [address] [id number] [place] [address] March, [facility] [address] [id number] [place] [address] March, [facility] [address] [id number] [place] [address] March, [facility] [address] [id number] [place] [address] March, [facility] [address] [id number] [place] [address] March, [facility] [address] [id number] [place] [address] Feb, [facility] [address] [id number] [place] [address] Feb, [address] [id number] Feb, [facility] [address] [id number] [place] [address] Feb, [facility] [address] [id number] [place] [address] Feb, [facility] [address] [id number] [place] [address] Feb, [facility] [address] [id number] [place] [address] Jan, [facility] [address] [id number] [place] [address] Jan, [facility] [address] [id number] [place] [address] Jan, [facility] [address] [id number] [place] [address] Jan, [facility] [address] [id number] [place] [address] Jan, [facility] [address] [id number] [place] [address] Jan, [facility] [address] [id number] [place] [address] Jan, [facility] [address] [id number] [place] [address] Jan, [facility] [address] [id number] [place] [address] Jan, [facility] [address] [id number] [place] [address] Jan, [facility] [address] [facility] [id number] [place] [address] Jan, [facility] [address] [id number] [place] [address] Jan, [facility] [address] [id number] [place] [address] Jan, [facility] [address] [id number] [place] [address] Jan, [facility] [address] [id number] [place] [address] Jan, [facility] [address] [id number] [place] [address] Jan, [facility] [address] [id number] [place] [address] Jan, [facility] [address] [id number] [place] [address] Jan, [facility] [address] [id number] [place] [address] Dec, [facility] [address] [id number] [place] [address] Dec, [facility] [address] [id number] [place] [address] Dec, [facility] [address] [id number] [place] [address] Dec, [facility] [address] [id number] [place] [address] 14 Dec, 2013 [facility] [address] [id number] [place] [address] Dec, [facility] [address] [id number] [place] [address] Dec, [facility] [address] [id number] [place] [address] Dec, [facility] [address] [id number] [place] [address] Dec, [facility] [address] [id number] [place] [address] Dec, [facility] [address] [id number] [place] [address] Dec, [facility] [address] [id number] [place] [address] Dec, [facility] [address] [id number] [place] [address] Nov, [facility] [address] [id number] [place] [address] Nov, [facility] [address] [id number] [place] [address] Nov, [facility] [address] [id number] [place] [address] Nov, [facility] [address] [id number] [place] [address] Nov, [facility] [address] [id number] [place] [address] Nov, [facility] [id number] [place] [address] Nov, [facility] [address] [id number] [place] [address] Oct, [facility] [address] [id number] [place] [address] Oct, [facility] [address] [id number] [place] [address] Sep, [facility] [address] [id number] [place] [address] Sep, [facility] [address] [id number] [place] [address] Sep, [facility] [address] [id number] [place] [address] Sep, [facility] [address] [id number] [place] [address] Aug, [facility] [address] [id number] [place] [address] Aug, [facility] [address] [id number] [place] [address] Aug, [facility] [address] [id number] [place] [address] Jul, [facility] [address] [id number] [place] [address] Jul, [facility] [address] [id number] [place] [address] Jun, [facility] [address] [id number] [place] [address] Jun, [facility] [address] [id number] [place] [address] Jun, [facility] [address] [id number] [place] [address] May, [facility] [address] [id number] [place] [address] May, [facility] [address] [id number] [place] [address] May, [facility] [address] [id number] [place] [address] Apr, [facility] [address] [id number] [place] [address] Apr, [facility] [address] [id number] [place] [address] March, [facility] [address] [id number] [place] [address] Feb, [facility] [address] [id number] [place] [address] Jan, [facility] [address] [id number] [place] [address] Jan, [facility] [address] [id number] [place] [address] Dec, [facility] [address] [id number] [place] [address] Nov, [facility] [address] [id number] [place] [address] Oct, [facility] [id number] [place] [address] Oct, [facility] [address] [id number] [place] [address] Sep, [facility] [id number] [place] [address] Sep, [facility] [address] [id number] [place] [address] Sep, [facility] [id number] [place] [address] Sep, [facility] [address] [id number] [place] [address] Sep, [facility] [id number] [place] [address] Sep, [facility] [address] [id number] [place] [address] Sep, [facility] [id number] [place] [address] Sep, [facility] [address] [id number] [place] [address] Jul, [facility] [address] [id number] [place] [address] Jun, [facility] [address] [id number] [place] [address] Jun, [facility] [address] [id number] [place] [address] Jun, [facility] [address] [id number] [place] [address] Jun, [facility] [address] [id number] [place] [address] May, [facility] [address] [id number] [place] [address] Apr, [facility] [id number] [place] [address] Jan, [facility] [address] [id number] [place] [address] Dec, [facility] [address] [id number] [place] [address] Dec, [facility] [id number] [place] [address] Nov, [facility] [id number] [place] [address] Oct, [facility] [address] [id number] [place] [address] 19 Oct, 2011 [facility] [address] [id number] [place] [address] 18 Aug, 2011 [facility] [id number] [place] [address] 18 Aug, 2011 [facility] [address] [id number] [place] [address] 18 Aug, 2011 [facility] [id number] [place] [address] 14 Aug, 2011 [facility] [address] [facility] [id number] [place] [address] 11 Aug, 2011 [facility] [address] [id number] [place] [address] 11 Aug, 2011 [facility] [address] [id number] [place] [address] 19 May, 2011 [facility] [address] [id number] [place] [address] 13 Apr, 2011 [facility] [address] [id number] [place] [address] 18 Feb, 2011 [facility] [address] [id number] [place] [address] Oct, [facility] [address] [id number] [place] [address] Oct, [facility] [address] [id number] [place] [address] Oct, [facility] [address] [id number] [place] [address] Sep, [facility] [address] [id number] [place] [address] 26 Aug, 2010 [facility] [address] [id number] [place] [address] 16 Jul, 2010 [facility] [address] [id number] [place] [address] 13 May, 2010 [facility] [address] [id number] [place] [address] Dec, [facility] [address] [id number] [place] [address] Nov, [facility] [address] [id number] [place] [address] 14 Oct, 2009 [facility] [address] [id number] [place] [address] Sep, [facility] [address] [id number] [place] [address] Sep, [facility] [address] [id number] [place] [address] Jul, [facility] [address] [id number] [place] [address] Jun, [facility] [address] [id number] [place] [address] May, IMMUNIZATIONS No Known Immunizations SOCIAL HISTORY [...]
--- OUTSIDE RECORDS SUMMARY | 2020-06-11 20:56 | XMS REPORT ---
Author Author Jd ROBLEDO Organization [facility] Address [address] [place] [address] Care Team Providers Care Hand Bender Name Role Phone PAULA ROBLEDO Unavailable PROBLEMS Type Condition ICD9-CM Code FTQ47-VH Code Onset Dates Condition S tatus SNOMED Code Problem Raynauds disease I73.00 Active 195 302312 Problem Venous insufficiency I87.2 Active 07428162 Problem Neuropathy G62.9 Active [id number] Problem Hypokalemia E87.6 Active 10486571 Problem Other chronic pain G89.29 Active 8 2101787 Problem Low back pain M54.5 Active 322119 009 Problem Congenital deafness H90.5 Active 16620759 Problem Dysthymia F34.1 Active [id number] ALLERGIES No Information ENCOUNTERS Encounter Location Date Diagnosis [facility] [address] [address] Nov, [facility] [address] [address] Jun, Congenital deafness H90.5 [facility] [address] [address] Jun, Other chronic pain G89.29 [facility] [address] [address] Jun, Acute kidney injury N17.9 [facility] [address] [facility] [id number] [address] [address] Jan, Abscess of left knee L02.416 [facility] [id number] [place] [address] Jan, Prediabetes R73.03 ; Raynauds disease I7 3.00 and Venous insufficiency I87.2 [facility] [address] [address] Oct, Neuropathy G62.9 ; Low back pain M54.5 a nd URI (upper respiratory infection) J06.9 [place] [address] [address] Jul, Raynauds disease I73.00 and Hypokalemia E87.6 [place] [address] [address] May, Medicare annual wellness visit, initial Z00.00 ; Dysthymia F34.1 ; Raynauds disease I73.00 ; Venous insufficiency I87.2 ; Congenital deafness H90.5 and Neuropathy G62.9 [place] [address] [address] Apr, [place] [address] [address] Apr, Prediabetes R73.03 ; Raynauds disease I7 3.00 ; Venous insufficiency I87.2 ; Neuropathy G62.9 and Dysthymia F34.1 [place] [address] [address] March, [place] [address] [address] Sep, Hyperglycemia R73.9 [place] [address] [address] Sep, Hyperglycemia R73.9 [place] [address] [address] Sep, Raynauds disease I73.00 ; Venous insuffi ciency I87.2 and Encounter for immunization Z23 [place] [address] [address] Jun, [place] [address] [address] May, [place] [address] [address] 18 May, 2017 Other chronic pain G89.29 [facility] [address] [address] May, Raynauds disease I73.00 ; Venous insuffi ciency I87.2 and Low back pain M54.5 [place] [address] [address] 13 Dec, 2016 Raynauds disease I73.00 ; Venous insuffi ciency I87.2 ; Low back pain M54.5 and Other chronic pain G89.29 [place] [address] [address] Nov, [place] [address] [address] Nov, Muscle spasm M62.838 [facility] [address] [id number] [address] [place] [address] Nov, [place] [address] [address] Oct, Folliculitis L73.9 and Venous insufficie ncy I87.2 [place] [address] [address] 17 Sep, 2016 Dermatitis L30.9 and Raynauds disease I7 3.00 [facility] [address] [id number] [address] [place] [address] Sep, Rash and nonspecific skin er uption R21 [place] [address] [address] Aug, Skin infection L08.9 [place] [address] [address] May, Infected smith L08.9 [place] [address] [address] May, Skin infection L08.9 [place] [id number] [place] [address] Dec, [facility] [id number] [place] [address] Nov, [facility] [id number] [place] [address] Nov, [facility] [id number] [place] [address] Nov, Raynauds disease I73.00 [facility] [id number] [place] [address] Nov, Raynauds disease I73.00 ; Leg cramps R25 .2 ; Venous insufficiency I87.2 and Routine adult health maintenance Z00.00 [facility] [id number] [place] [address] Jul, Infected sebaceous cyst 706.2 [facility] [id number] [place] [address] Jun, [facility] [address] [address] Jun, [facility] [address] [address] Jun, Venous insufficiency 459.81 and Raynauds disease 443.0 [facility] [address] [address] Feb, [facility] [id number] [place] [address] Feb, [facility] [id number] [place] [address] Jan, [facility] [address] [address] Jan, [facility] [id number] [place] [address] Dec, [facility] [address] [address] Dec, 2014 [facility] [address] [id number] [place] [address] Dec, [facility] [address] [id number] [place] [address] Dec, [facility] [address] [id number] [place] [address] Nov, [facility] [address] [id number] [place] [address] Nov, [facility] [address] [id number] [place] [address] Oct, [facility] [address] [id number] [place] [address] Oct, [facility] [address] [id number] [place] [address] Aug, [facility] [address] [id number] [place] [address] Aug, [facility] [address] [id number] [place] [address] Aug, [facility] [address] [id number] [place] [address] Jul, [facility] [address] [id number] [place] [address] Jul, [facility] [address] [id number] [place] [address] Jul, [facility] [address] [id number] [place] [address] Jul, [facility] [address] [id number] [place] [address] Jun, [facility] [address] [id number] [place] [address] Jun, [facility] [address] [id number] [place] [address] Jun, [facility] [address] [facility] [id number] [place] [address] Jun, [facility] [address] [facility] [id number] [place] [address] May, [facility] [address] [facility] [id number] [place] [address] May, [facility] [address] [id number] [place] [address] May, [facility] [address] [facility] [id number] [place] [address] May, [facility] [address] [facility] [id number] [place] [address] May, [facility] [address] [id number] [place] [address] May, [facility] [address] [id number] [place] [address] May, [facility] [address] [id number] [place] [address] Apr, [facility] [address] [facility] [id number] [place] [address] Apr, [facility] [address] [id number] [place] [address] Apr, [facility] [address] [id number] [place] [address] Apr, [facility] [address] [id number] [place] [address] March, [facility] [address] [facility] [id number] [place] [address] March, [facility] [address] [id number] [place] [address] March, [facility] [address] [id number] [place] [address] March, [facility] [address] [id number] [place] [address] March, [facility] [address] [id number] [place] [address] March, [facility] [address] [id number] [place] [address] March, [facility] [address] [id number] [place] [address] Feb, [facility] [address] [id number] [place] [address] Feb, [facility] [id number] Feb, [facility] [address] [id number] [place] [address] Feb, [facility] [address] [id number] [place] [address] Feb, [facility] [address] [id number] [place] [address] Feb, [facility] [address] [id number] [place] [address] Jan, [facility] [address] [id number] [place] [address] Jan, [facility] [address] [id number] [place] [address] Jan, [facility] [address] [id number] [place] [address] Jan, [facility] [address] [id number] [place] [address] Jan, [facility] [address] [id number] [place] [address] Jan, [facility] [address] [id number] [place] [address] Jan, [facility] [address] [id number] [place] [address] Jan, [facility] [address] [id number] [place] [address] Jan, [facility] [address] [facility] [id number] [place] [address] Jan, [facility] [address] [facility] [id number] [place] [address] Jan, [facility] [address] [id number] [place] [address] Jan, [facility] [address] [id number] [place] [address] Jan, [facility] [address] [facility] [id number] [place] [address] Jan, [facility] [address] [id number] [place] [address] Jan, [facility] [address] [id number] [place] [address] Jan, [facility] [address] [id number] [place] [address] Jan, [facility] [address] [id number] [place] [address] Jan, [facility] [address] [id number] [place] [address] Dec, [facility] [address] [id number] [place] [address] Dec, [facility] [address] [id number] [place] [address] Dec, [facility] [address] [id number] [place] [address] 17 Dec, 2013 [facility] [address] [id number] [place] [address] 14 Dec, 2013 [facility] [address] [id number] [place] [address] Dec, [facility] [address] [id number] [place] [address] 07 Dec, 2013 [facility] [address] [id number] [place] [address] Dec, [facility] [address] [id number] [place] [address] Dec, [facility] [address] [id number] [place] [address] Dec, [facility] [address] [id number] [place] [address] Dec, [facility] [address] [id number] [place] [address] Dec, [facility] [address] [id number] [place] [address] Nov, [facility] [address] [id number] [place] [address] Nov, [facility] [id number] [place] [address] Nov, [facility] [address] [id number] [place] [address] Nov, [facility] [id number] [place] [address] Nov, [facility] [address] [id number] [place] [address] Nov, [facility] [id number] [place] [address] Nov, [facility] [address] [id number] [place] [address] Oct, [facility] [address] [id number] [place] [address] Oct, [facility] [address] [id number] [place] [address] Sep, [facility] [address] [id number] [place] [address] Sep, [facility] [address] [id number] [place] [address] Sep, [facility] [address] [id number] [place] [address] Sep, [facility] [address] [id number] [place] [address] Aug, [facility] [address] [id number] [place] [address] Aug, [facility] [address] [id number] [place] [address] Aug, [facility] [address] [id number] [place] [address] Jul, [facility] [address] [id number] [place] [address] Jul, [facility] [address] [id number] [place] [address] Jun, [facility] [address] [id number] [place] [address] Jun, [facility] [address] [id number] [place] [address] Jun, [facility] [address] [id number] [place] [address] May, [facility] [address] [id number] [place] [address] May, [facility] [address] [id number] [place] [address] May, [facility] [address] [id number] [place] [address] Apr, [facility] [address] [id number] [place] [address] Apr, [facility] [address] [id number] [place] [address] March, [facility] [address] [id number] [place] [address] Feb, [facility] [address] [id number] [place] [address] Jan, [facility] [address] [id number] [place] [address] Jan, [facility] [address] [id number] [place] [address] Dec, [facility] [address] [id number] [place] [address] Nov, [facility] [address] [id number] [place] [address] Oct, [facility] [address] [id number] [place] [address] Oct, [facility] [address] [id number] [place] [address] Sep, [facility] [address] [id number] [place] [address] Sep, [facility] [address] [id number] [place] [address] Sep, [facility] [address] [id number] [place] [address] Sep, [facility] [address] [id number] [place] [address] Sep, [facility] [address] [id number] [place] [address] Sep, [facility] [address] [id number] [place] [address] Sep, [facility] [address] [id number] [place] [address] Sep, [facility] [id number] [place] [address] Jul, [facility] [address] [id number] [place] [address] Jun, [facility] [id number] [place] [address] Jun, [facility] [address] [id number] [place] [address] Jun, [facility] [address] [id number] [place] [address] Jun, [facility] [address] [id number] [place] [address] May, [facility] [address] [id number] [place] [address] Apr, [facility] [address] [id number] [place] [address] Jan, [facility] [address] [id number] [place] [address] Dec, [facility] [address] [id number] [place] [address] Dec, [facility] [id number] [place] [address] Nov, [facility] [address] [id number] [place] [address] Oct, [facility] [id number] [place] [address] Oct, [facility] [address] [id number] [place] [address] 18 Aug, 2011 [facility] [id number] [place] [address] 18 Aug, 2011 [facility] [address] [id number] [place] [address] 18 Aug, 2011 [facility] [address] [id number] [place] [address] 14 Aug, 2011 [facility] [address] [id number] [place] [address] Aug, [facility] [address] [id number] [place] [address] Aug, [facility] [address] [id number] [place] [address] May, [facility] [address] [id number] [place] [address] Apr, [facility] [address] [id number] [place] [address] 18 Feb, 2011 [facility] [address] [id number] [place] [address] 28 Oct, 2010 [facility] [address] [id number] [place] [address] Oct, [facility] [address] [id number] [place] [address] 07 Oct, 2010 [facility] [address] [id number] [place] [address] Sep, [facility] [address] [id number] [place] [address] Aug, [facility] [address] [id number] [place] [address] 16 Jul, 2010 [facility] [address] [id number] [place] [address] May, [facility] [address] [id number] [place] [address] Dec, [facility] [address] [id number] [place] [address] Nov, [facility] [address] [id number] [place] [address] 14 Oct, 2009 [facility] [address] [id number] [place] [address] 27 Sep, 2009 [facility] [address] [id number] [place] [address] 05 Sep, 2009 [facility] [address] [id number] [place] [address] 14 Jul, 2009 [facility] [address] [id number] [place] [address] 17 Jun, 2009 [facility] [address] [facility] [id number] [place] [address] 13 May, 2009 IMMUNIZATIONS No Known Immunizations [...]
--- OUTSIDE RECORDS SUMMARY | 2020-06-11 20:56 | XMS REPORT ---
Author Author Jd ROBLEDO Organization [facility] [place] Address [address] [place] [address] Care Team Providers Care [employer] Supervisor Name Role Phone PAULA ROBLEDO Unavailable PROBLEMS Type Condition ICD9-CM Code IOK54-BX Code Onset Dates Condition S tatus SNOMED Code Problem Raynauds disease I73.00 Active 195 356824 Problem Venous insufficiency I87.2 Active 84668808 Problem Other chronic pain G89.29 Active 8 8004524 Problem Hypokalemia E87.6 Active 16981981 Problem Prediabetes R73.03 Active 53741311 2 Problem Low back pain M54.5 Active 009429 009 Problem Congenital deafness H90.5 Active 63983153 Problem Dysthymia F34.1 Active 84260350 Problem Neuropathy G62.9 Active 256078180 ALLERGIES No Information ENCOUNTERS Encounter Location Date Diagnosis [facility] [place] [id number] [place] [address] Nov, Raynauds disease I73.00 ; Venous insuffi ciency I87.2 ; Prediabetes R73.03 and Neuropathy G62.9 [facility] [place] [id number] [place] [address] Jun, Congenital deafness H90.5 [facility] [place] [id number] [place] [address] Jun, Other chronic pain G89.29 [facility] [place] [id number] [place] [address] Jun, Acute kidney injury N17.[address] [facility] [address] [facility] [id number] [address] [place] [address] Jan, Abscess of left knee L02.416 [facility] [place] [address] [id number] [place] [address] Jan, Prediabetes R73.03 ; Raynauds disease I7 3.00 and Venous insufficiency I87.2 [address] [address] [address] Oct, Neuropathy G62.9 ; Low back pain M54.5 a nd URI (upper respiratory infection) J06.9 [place] [address] [address] Jul, Raynauds disease I73.00 and Hypokalemia E87.6 [place] [address] [address] May, Medicare annual wellness visit, initial Z00.00 ; Dysthymia F34.1 ; Raynauds disease I73.00 ; Venous insufficiency I87.2 ; Congenital deafness H90.5 and Neuropathy G62.9 [place] [address] [address] Apr, [place] [address] [address] Apr, Prediabetes R73.03 ; Raynauds disease I7 3.00 ; Venous insufficiency I87.2 ; Neuropathy G62.9 and Dysthymia F34.1 [place] [address] [address] March, [place] [address] [address] Sep, Hyperglycemia R73.9 [place] [address] [address] Sep, Hyperglycemia R73.9 [place] [address] [address] Sep, Raynauds disease I73.00 ; Venous insuffi ciency I87.2 and Encounter for immunization Z23 [place] [address] [address] Jun, [facility] [place] [address] [address] May, [facility] [place] [address] [address] May, Other chronic pain G89.29 [facility] [place] [address] [address] May, Raynauds disease I73.00 ; Venous insuffi ciency I87.2 and Low back pain M54.5 [place] [address] [address] Dec, Raynauds disease I73.00 ; Venous insuffi ciency I87.2 ; Low back pain M54.5 and Other chronic pain G89.29 [place] [address] [address] Nov, [place] [address] [address] Nov, Muscle spasm M62.[address] [facility] [address] [facility] [id number] [place] [address] Nov, [facility] [place] [address] [address] Oct, Folliculitis L73.9 and Venous insufficie ncy I87.2 [place] [address] [address] Sep, Dermatitis L30.9 and Raynauds disease I7 3.[address] [facility] [address] [facility] [id number] [address] [place] [address] Sep, Rash and nonspecific skin er uption R21 [place] [address] [address] Aug, Skin infection L08.9 [place] [address] [address] May, Infected smith L08.9 [facility] [place] [address] [address] May, Skin infection L08.9 [facility] [place] [address] [address] Dec, [facility] [place] [address] [address] Nov, [facility] [place] [address] [address] Nov, [facility] [place] [address] [address] Nov, Raynauds disease I73.00 [facility] [place] [address] [address] Nov, Raynauds disease I73.00 ; Leg cramps R25 .2 ; Venous insufficiency I87.2 and Routine adult health maintenance Z00.00 [facility] [place] [address] [address] Jul, Infected sebaceous cyst 706.2 [facility] [place] [address] [address] Jun, [facility] [place] [address] [address] Jun, [facility] [place] [address] [address] Jun, Venous insufficiency 459.81 and Raynauds disease 443.0 [facility] [place] [address] [address] Feb, [facility] [place] [address] [address] Feb, [facility] [place] [address] [address] Jan, [facility] [place] [address] [address] Jan, [facility] [place] [facility] [address] [id number] [place] [address] Dec, [facility] [place] [facility] [address] [id number] [place] [address] Dec, [facility] [place] [facility] [address] [id number] [place] [address] Dec, [facility] [place] [facility] [address] [id number] [place] [address] Dec, [facility] [place] [facility] [address] [id number] [place] [address] Nov, [facility] [place] [facility] [address] [id number] [place] [address] Nov, [facility] [place] [facility] [address] [id number] [place] [address] Oct, [facility] [place] [facility] [id number] [place] [address] Oct, [facility] [place] [facility] [address] [id number] [place] [address] Aug, [facility] [place] [facility] [address] [id number] [place] [address] Aug, [facility] [place] [facility] [address] [id number] [place] [address] Aug, [facility] [place] [facility] [address] [id number] [place] [address] Jul, [facility] [place] [facility] [address] [id number] [place] [address] Jul, [facility] [place] [facility] [address] [id number] [place] [address] Jul, [facility] [place] [facility] [address] [id number] [place] [address] Jul, [facility] [place] [facility] [address] [id number] [place] [address] Jun, [facility] [place] [facility] [address] [id number] [place] [address] Jun, [facility] [place] [facility] [address] [facility] [id number] [facility] [place] [address] Jun, [facility] [place] [facility] [address] [facility] [id number] [facility] [place] [address] Jun, [facility] [place] [facility] [address] [id number] [facility] [place] [address] May, [facility] [place] [facility] [address] [facility] [id number] [place] [address] May, [facility] [place] [facility] [address] [facility] [id number] [facility] [place] [address] May, [facility] [place] [facility] [address] [id number] [facility] [place] [address] May, [facility] [place] [facility] [address] [id number] [facility] [place] [address] May, [facility] [place] [facility] [address] [id number] [place] [address] May, [facility] [place] [facility] [address] [id number] [facility] [place] [address] May, [facility] [place] [facility] [address] [id number] [place] [address] Apr, [facility] [place] [facility] [address] [id number] [place] [address] Apr, [facility] [place] [facility] [address] [id number] [place] [address] Apr, [facility] [place] [facility] [address] [facility] [id number] [place] [address] Apr, [facility] [place] [facility] [address] [id number] [place] [address] March, [facility] [place] [facility] [address] [id number] [place] [address] March, [facility] [place] [facility] [address] [id number] [place] [address] March, [facility] [place] [facility] [address] [id number] [place] [address] March, [facility] [address] [id number] [place] [address] March, [facility] [place] [facility] [address] [id number] [place] [address] March, [facility] [address] [id number] [place] [address] March, [facility] [place] [facility] [address] [id number] [place] [address] Feb, [facility] [address] [id number] [place] [address] Feb, [facility] [address] [place] [id number] Feb, [facility] [address] [id number] [place] [address] Feb, [facility] [address] [id number] [place] [address] Feb, [facility] [place] [facility] [address] [id number] [place] [address] Feb, [facility] [place] [facility] [address] [id number] [place] [address] Jan, [facility] [place] [facility] [address] [id number] [place] [address] Jan, [facility] [place] [facility] [address] [id number] [place] [address] Jan, [facility] [place] [facility] [address] [id number] [place] [address] Jan, [facility] [place] [facility] [address] [id number] [place] [address] Jan, [facility] [place] [facility] [address] [id number] [place] [address] Jan, [facility] [place] [facility] [address] [id number] [place] [address] Jan, [facility] [place] [facility] [address] [facility] [id number] [place] [address] Jan, [facility] [place] [facility] [address] [id number] [place] [address] Jan, [facility] [place] [facility] [address] [id number] [place] [address] Jan, [facility] [place] [facility] [address] [id number] [place] [address] Jan, [facility] [place] [facility] [address] [facility] [id number] [place] [address] Jan, [facility] [place] [facility] [address] [id number] [place] [address] Jan, [facility] [place] [facility] [address] [id number] [place] [address] Jan, [facility] [place] [facility] [address] [id number] [place] [address] Jan, [facility] [place] [facility] [address] [id number] [place] [address] Jan, [facility] [place] [facility] [address] [id number] [place] [address] Jan, [facility] [place] [facility] [address] [id number] [place] [address] Jan, [facility] [place] [facility] [address] [id number] [place] [address] Dec, [facility] [place] [facility] [address] [id number] [place] [address] Dec, [facility] [place] [facility] [address] [id number] [place] [address] Dec, [facility] [place] [facility] [address] [id number] [place] [address] Dec, [facility] [place] [facility] [address] [id number] [place] [address] Dec, [facility] [place] [facility] [address] [id number] [place] [address] Dec, [facility] [place] [facility] [address] [id number] [place] [address] Dec, [facility] [place] [facility] [address] [id number] [place] [address] Dec, [facility] [place] [facility] [address] [id number] [place] [address] Dec, [facility] [place] [facility] [address] [id number] [place] [address] Dec, [facility] [place] [facility] [address] [id number] [place] [address] Dec, [facility] [place] [facility] [address] [id number] [place] [address] Dec, [facility] [place] [facility] [address] [id number] [place] [address] Nov, [facility] [place] [facility] [address] [id number] [place] [address] Nov, [facility] [place] [facility] [address] [id number] [place] [address] Nov, [facility] [place] [facility] [address] [id number] [place] [address] Nov, [facility] [place] [facility] [address] [id number] [place] [address] Nov, [facility] [place] [facility] [address] [id number] [place] [address] Nov, [facility] [place] [facility] [address] [id number] [place] [address] Nov, [facility] [place] [facility] [id number] [place] [address] Oct, [facility] [place] [facility] [address] [id number] [place] [address] Oct, [facility] [place] [facility] [address] [id number] [place] [address] Sep, [facility] [place] [facility] [address] [id number] [place] [address] Sep, [facility] [place] [facility] [address] [id number] [place] [address] Sep, [facility] [place] [facility] [address] [id number] [place] [address] Sep, [facility] [place] [facility] [address] [id number] [place] [address] Aug, [facility] [place] [facility] [address] [id number] [place] [address] Aug, [facility] [place] [facility] [address] [id number] [place] [address] Aug, [facility] [place] [facility] [address] [id number] [place] [address] Jul, [facility] [place] [facility] [address] [id number] [place] [address] Jul, [facility] [place] [facility] [address] [id number] [place] [address] Jun, [facility] [place] [facility] [address] [id number] [place] [address] Jun, [facility] [place] [facility] [address] [id number] [place] [address] Jun, [facility] [place] [facility] [address] [id number] [place] [address] May, [facility] [place] [facility] [address] [id number] [place] [address] May, [facility] [place] [facility] [address] [id number] [place] [address] May, [facility] [place] [facility] [address] [id number] [place] [address] Apr, [facility] [place] [facility] [address] [id number] [place] [address] Apr, [facility] [place] [facility] [address] [id number] [place] [address] March, [facility] [place] [facility] [address] [id number] [place] [address] Feb, [facility] [place] [facility] [address] [id number] [place] [address] Jan, [facility] [place] [facility] [address] [id number] [place] [address] Jan, [facility] [place] [facility] [address] [id number] [place] [address] Dec, [facility] [place] [facility] [address] [id number] [place] [address] Nov, [facility] [place] [facility] [address] [id number] [place] [address] Oct, [facility] [place] [facility] [address] [id number] [place] [address] Oct, [facility] [place] [facility] [address] [id number] [place] [address] 30 Sep, 2012 [facility] [place] [facility] [address] [id number] [place] [address] Sep, [facility] [place] [facility] [address] [id number] [place] [address] Sep, [facility] [place] [facility] [address] [id number] [place] [address] Sep, [facility] [place] [facility] [address] [id number] [place] [address] Sep, [facility] [place] [facility] [address] [id number] [place] [address] Sep, [facility] [place] [facility] [address] [id number] [place] [address] Sep, [facility] [place] [facility] [address] [id number] [place] [address] Sep, [facility] [place] [facility] [address] [id number] [place] [address] Jul, [facility] [place] [facility] [id number] [place] [address] 30 Jun, 2012 [facility] [place] [facility] [address] [id number] [place] [address] Jun, [facility] [place] [facility] [address] [id number] [place] [address] Jun, [facility] [place] [facility] [address] [id number] [place] [address] Jun, [facility] [place] [facility] [address] [id number] [place] [address] May, [facility] [place] [facility] [address] [id number] [place] [address] Apr, [facility] [place] [facility] [address] [id number] [place] [address] Jan, [facility] [place] [facility] [id number] [place] [address] Dec, [facility] [place] [facility] [id number] [place] [address] Dec, [facility] [place] [facility] [address] [id number] [place] [address] Nov, [facility] [place] [facility] [id number] [place] [address] Oct, [facility] [place] [facility] [id number] [place] [address] Oct, [facility] [place] [facility] [id number] [place] [address] 18 Aug, 2011 [facility] [place] [facility] [address] [id number] [place] [address] 18 Aug, 2011 [facility] [place] [facility] [id number] [place] [address] 18 Aug, 2011 [facility] [place] [facility] [address] [id number] [place] [address] 14 Aug, 2011 [facility] [place] [facility] [id number] [place] [address] 11 Aug, 2011 [facility] [place] [facility] [address] [id number] [place] [address] 11 Aug, 2011 [facility] [address] [id number] [place] [address] 19 May, 2011 [facility] [address] [id number] [place] [address] 13 Apr, 2011 [facility] [address] [id number] [place] [address] 18 Feb, 2011 [facility] [address] [id number] [place] [address] Oct, [facility] [address] [id number] [place] [address] Oct, [facility] [address] [id number] [place] [address] Oct, [facility] [address] [id number] [place] [address] Sep, [facility] [address] [id number] [place] [address] Aug, [facility] [address] [id number] [place] [address] 16 Jul, 2010 [facility] [address] [id number] [place] [address] May, [facility] [address] [id number] [place] [address] Dec, [facility] [address] [id number] [place] [address] Nov, [facility] [address] [id number] [place] [address] 14 Oct, 2009 [facility] [address] [id number] [place] [address] Sep, [facility] [address] [id number] [place] [address] 05 Sep, 2009 [facility] [address] [id number] [place] [address] 14 Jul, 2009 [facility] [place] [address] [facility] [id number] [place] [address] Jun, [facility] [place] [address] [facility] [id number] [place] [address] May, IMMUNIZATIONS No Known Immunizations SOCIAL HISTORY Never Assessed REASON FOR VISIT PLAN OF CARE VITAL SIGNS Height 73 in 2014-04-11 Weight 220 lbs 2014-04-11 Temperature 97.8 degrees Fahrenheit 2014-04-11 Heart Rate 80 bpm 2014-04-11 Respiratory Rate 22 2014-04-11 Blood pressure systolic 110 mmHg 2014-04-11 Blood pressure diastolic 62 mmHg 2014-04-11 MEDICATIONS No Known Medications RESULTS No Results PROCEDURES Procedure Date Ordered Result Body Site C DIFF AMPLIFIED PROBE April 11, 2014 OVA AND PARASITES SMEARS April 11, 2014 LEUKOCYTE COUNT, FECAL April 11, 2014 INSTRUCTIONS MEDICATIONS ADMINISTERED No Known Medications [...]
--- OUTSIDE RECORDS SUMMARY | 2020-06-11 20:56 | XMS REPORT ---
Author Author Jd ROBLEDO Organization [facility] Address [address] [place] [address] Care Team Providers Care Javascript Ui Developer Name Role Phone PAULA ROBLEDO Unavailable PROBLEMS Type Condition ICD9-CM Code ZGT02-GN Code Onset Dates Condition S tatus SNOMED Code Problem Raynauds disease I73.00 Active 195 822957 Problem Venous insufficiency I87.2 Active 65074464 Problem Other chronic pain G89.29 Active 8 0491883 Problem Hypokalemia E87.6 Active 57710090 Problem Prediabetes R73.03 Active 79177640 2 Problem Low back pain M54.5 Active 235084 009 Problem Congenital deafness H90.5 Active 16385805 Problem Dysthymia F34.1 Active 58695245 Problem Neuropathy G62.9 Active [id number] ALLERGIES No Information ENCOUNTERS Encounter Location Date Diagnosis [facility] [id number] [place] [address] Nov, Raynauds disease I73.00 ; Venous insuffi ciency I87.2 ; Prediabetes R73.03 and Neuropathy G62.9 [facility] [id number] [place] [address] Jun, Congenital deafness H90.5 [facility] [id number] [place] [address] Jun, Other chronic pain G89.29 [facility] [id number] [place] [address] Jun, Acute kidney injury N17.9 [facility] [address] [facility] [id number] [address] [place] [address] Jan, Abscess of left knee L02.416 [facility] [address] [id number] [place] [address] Jan, Prediabetes R73.03 ; Raynauds disease I7 3.00 and Venous insufficiency I87.2 [address] [address] Oct, Neuropathy G62.9 ; Low back pain M54.5 a nd URI (upper respiratory infection) J06.9 [place] [address] [address] Jul, Raynauds disease I73.00 and Hypokalemia E87.6 [address] [address] [address] May, Medicare annual wellness visit, initial Z00.00 ; Dysthymia F34.1 ; Raynauds disease I73.00 ; Venous insufficiency I87.2 ; Congenital deafness H90.5 and Neuropathy G62.9 [place] [address] [address] Apr, [place] [address] [address] Apr, Prediabetes R73.03 ; Raynauds disease I7 3.00 ; Venous insufficiency I87.2 ; Neuropathy G62.9 and Dysthymia F34.1 [place] [address] [address] March, [place] [address] [address] Sep, Hyperglycemia R73.9 [place] [address] [address] Sep, Hyperglycemia R73.9 [place] [address] [address] Sep, Raynauds disease I73.00 ; Venous insuffi ciency I87.2 and Encounter for immunization Z23 [place] [address] [address] Jun, [facility] [address] [address] May, [facility] [address] [address] May, Other chronic pain G89.29 [facility] [address] [address] May, Raynauds disease I73.00 ; Venous insuffi ciency I87.2 and Low back pain M54.5 [place] [address] [address] Dec, Raynauds disease I73.00 ; Venous insuffi ciency I87.2 ; Low back pain M54.5 and Other chronic pain G89.29 [place] [address] [address] Nov, [place] [address] [address] Nov, Muscle spasm M62.838 [facility] [address] [facility] [id number] [place] [address] Nov, [facility] [address] [address] Oct, Folliculitis L73.9 and Venous insufficie ncy I87.2 [place] [address] [address] Sep, Dermatitis L30.9 and Raynauds disease I7 3.00 [facility] [address] [facility] [id number] [address] [place] [address] Sep, Rash and nonspecific skin er uption R21 [place] [address] [address] Aug, Skin infection L08.9 [address] [address] [address] May, Infected smith L08.9 [facility] [address] [address] May, Skin infection L08.9 [facility] [address] [address] Dec, [facility] [address] [address] Nov, [facility] [address] [address] Nov, [facility] [address] [address] Nov, Raynauds disease I73.00 [facility] [address] [address] Nov, Raynauds disease I73.00 ; Leg cramps R25 .2 ; Venous insufficiency I87.2 and Routine adult health maintenance Z00.00 [facility] [address] [address] Jul, Infected sebaceous cyst 706.2 [facility] [address] [address] Jun, [facility] [address] [address] Jun, [facility] [address] [address] Jun, Venous insufficiency 459.81 and Raynauds disease 443.0 [facility] [address] [address] Feb, [facility] [address] [address] Feb, [facility] [address] [address] Jan, [facility] [address] [address] Jan, [facility] [place] [facility] [address] [id number] [place] [address] Dec, [facility] [place] [facility] [address] [id number] [place] [address] Dec, [facility] [place] [facility] [address] [id number] [place] [address] Dec, [facility] [place] [facility] [address] [id number] [place] [address] Dec, [facility] [place] [facility] [address] [id number] [place] [address] Nov, [facility] [place] [facility] [address] [id number] [place] [address] Nov, [facility] [place] [facility] [address] [id number] [place] [address] Oct, [facility] [place] [facility] [id number] [place] [address] Oct, [facility] [place] [facility] [address] [id number] [place] [address] Aug, [facility] [place] [facility] [address] [id number] [place] [address] Aug, [facility] [place] [facility] [address] [id number] [place] [address] Aug, [facility] [place] [facility] [address] [id number] [place] [address] Jul, [facility] [place] [facility] [address] [id number] [place] [address] Jul, [facility] [place] [facility] [address] [id number] [place] [address] Jul, [facility] [place] [facility] [address] [id number] [place] [address] Jul, [facility] [place] [facility] [address] [id number] [place] [address] Jun, [facility] [place] [facility] [address] [id number] [place] [address] Jun, [facility] [place] [facility] [address] [facility] [id number] [place] [address] Jun, [facility] [place] [facility] [address] [facility] [id number] [place] [address] Jun, [facility] [place] [facility] [address] [id number] [place] [address] May, [facility] [place] [facility] [address] [facility] [id number] [place] [address] May, [facility] [place] [facility] [address] [facility] [id number] [place] [address] May, [facility] [place] [facility] [address] [id number] [place] [address] May, [facility] [place] [facility] [address] [id number] [place] [address] May, [facility] [place] [facility] [address] [id number] [place] [address] May, [facility] [place] [facility] [address] [id number] [place] [address] May, [facility] [place] [facility] [address] [id number] [place] [address] Apr, [facility] [place] [facility] [address] [id number] [place] [address] Apr, [facility] [place] [facility] [address] [id number] [place] [address] Apr, [facility] [place] [facility] [address] [facility] [id number] [place] [address] Apr, [facility] [place] [facility] [address] [id number] [place] [address] March, [facility] [place] [facility] [address] [id number] [place] [address] March, [facility] [place] [facility] [address] [id number] [place] [address] March, [facility] [place] [facility] [address] [id number] [place] [address] March, [facility] [address] [id number] [place] [address] March, [facility] [place] [facility] [address] [id number] [place] [address] March, [facility] [address] [id number] [place] [address] March, [facility] [place] [facility] [address] [id number] [place] [address] Feb, [facility] [address] [id number] [place] [address] Feb, [facility] [address] [place] [id number] Feb, [facility] [address] [id number] [place] [address] Feb, [facility] [address] [id number] [place] [address] Feb, [facility] [place] [facility] [address] [id number] [place] [address] Feb, [facility] [place] [facility] [address] [id number] [place] [address] Jan, [facility] [place] [facility] [address] [id number] [place] [address] Jan, [facility] [place] [facility] [address] [id number] [place] [address] Jan, [facility] [place] [facility] [address] [id number] [place] [address] Jan, [facility] [place] [facility] [address] [id number] [place] [address] Jan, [facility] [place] [facility] [address] [id number] [place] [address] Jan, [facility] [place] [facility] [address] [id number] [place] [address] Jan, [facility] [place] [facility] [address] [facility] [id number] [place] [address] Jan, [facility] [place] [facility] [address] [id number] [place] [address] Jan, [facility] [place] [facility] [address] [id number] [place] [address] Jan, [facility] [place] [facility] [address] [id number] [place] [address] Jan, [facility] [place] [facility] [address] [facility] [id number] [place] [address] Jan, [facility] [place] [facility] [address] [id number] [place] [address] Jan, [facility] [place] [facility] [address] [id number] [place] [address] Jan, [facility] [place] [facility] [address] [id number] [place] [address] Jan, [facility] [place] [facility] [address] [id number] [place] [address] Jan, [facility] [place] [facility] [address] [id number] [place] [address] Jan, [facility] [place] [facility] [address] [id number] [place] [address] Jan, [facility] [place] [facility] [address] [id number] [place] [address] Dec, [facility] [place] [facility] [address] [id number] [place] [address] Dec, [facility] [place] [facility] [address] [id number] [place] [address] Dec, [facility] [place] [facility] [address] [id number] [place] [address] Dec, [facility] [place] [facility] [address] [id number] [place] [address] Dec, [facility] [place] [facility] [address] [id number] [place] [address] Dec, [facility] [place] [facility] [address] [id number] [place] [address] Dec, [facility] [place] [facility] [address] [id number] [place] [address] Dec, [facility] [place] [facility] [address] [id number] [place] [address] Dec, [facility] [place] [facility] [address] [id number] [place] [address] Dec, [facility] [place] [facility] [address] [id number] [place] [address] Dec, [facility] [place] [facility] [address] [id number] [place] [address] Dec, [facility] [place] [facility] [address] [id number] [place] [address] Nov, [facility] [place] [facility] [address] [id number] [place] [address] Nov, [facility] [place] [facility] [address] [id number] [place] [address] Nov, [facility] [place] [facility] [address] [id number] [place] [address] Nov, [facility] [place] [facility] [address] [id number] [place] [address] Nov, [facility] [place] [facility] [address] [id number] [place] [address] Nov, [facility] [place] [facility] [address] [id number] [place] [address] Nov, [facility] [place] [facility] [id number] [place] [address] Oct, [facility] [place] [facility] [address] [id number] [place] [address] Oct, [facility] [place] [facility] [address] [id number] [place] [address] Sep, [facility] [place] [facility] [address] [id number] [place] [address] Sep, [facility] [place] [facility] [address] [id number] [place] [address] Sep, [facility] [place] [facility] [address] [id number] [place] [address] Sep, [facility] [place] [facility] [address] [id number] [place] [address] Aug, [facility] [place] [facility] [address] [id number] [place] [address] Aug, [facility] [place] [facility] [address] [id number] [place] [address] Aug, [facility] [place] [facility] [address] [id number] [place] [address] Jul, [facility] [place] [facility] [address] [id number] [place] [address] Jul, [facility] [place] [facility] [address] [id number] [place] [address] Jun, [facility] [place] [facility] [address] [id number] [place] [address] Jun, [facility] [place] [facility] [address] [id number] [place] [address] Jun, [facility] [place] [facility] [address] [id number] [place] [address] May, [facility] [place] [facility] [address] [id number] [place] [address] May, [facility] [place] [facility] [address] [id number] [place] [address] May, [facility] [place] [facility] [address] [id number] [place] [address] Apr, [facility] [place] [facility] [address] [id number] [place] [address] Apr, [facility] [place] [facility] [address] [id number] [place] [address] March, [facility] [place] [facility] [address] [id number] [place] [address] Feb, [facility] [place] [facility] [address] [id number] [place] [address] Jan, [facility] [place] [facility] [address] [id number] [place] [address] Jan, [facility] [place] [facility] [address] [id number] [place] [address] Dec, [facility] [place] [facility] [address] [id number] [place] [address] Nov, [facility] [place] [facility] [address] [id number] [place] [address] Oct, [facility] [place] [facility] [address] [id number] [place] [address] Oct, [facility] [place] [facility] [address] [id number] [place] [address] 30 Sep, 2012 [facility] [place] [facility] [address] [id number] [place] [address] Sep, [facility] [place] [facility] [address] [id number] [place] [address] Sep, [facility] [place] [facility] [address] [id number] [place] [address] Sep, [facility] [place] [facility] [address] [id number] [place] [address] Sep, [facility] [place] [facility] [address] [id number] [place] [address] Sep, [facility] [address] [id number] [place] [address] Sep, [facility] [address] [id number] [place] [address] Sep, [facility] [address] [id number] [place] [address] Jul, [facility] [id number] [place] [address] 30 Jun, 2012 [facility] [address] [id number] [place] [address] Jun, [facility] [address] [id number] [place] [address] Jun, [facility] [address] [id number] [place] [address] Jun, [facility] [address] [id number] [place] [address] May, [facility] [address] [id number] [place] [address] Apr, [facility] [address] [id number] [place] [address] Jan, [facility] [id number] [place] [address] Dec, [facility] [id number] [place] [address] Dec, [facility] [address] [id number] [place] [address] Nov, [facility] [id number] [place] [address] Oct, [facility] [id number] [place] [address] Oct, [facility] [id number] [place] [address] 18 Aug, 2011 [facility] [address] [id number] [place] [address] 18 Aug, 2011 [facility] [id number] [place] [address] 18 Aug, 2011 [facility] [address] [id number] [place] [address] 14 Aug, 2011 [facility] [id number] [place] [address] 11 Aug, 2011 [facility] [address] [id number] [place] [address] 11 Aug, 2011 [facility] [address] [id number] [place] [address] 19 May, 2011 [facility] [address] [id number] [place] [address] 13 Apr, 2011 [facility] [address] [id number] [place] [address] 18 Feb, 2011 [facility] [address] [id number] [place] [address] Oct, [facility] [address] [id number] [place] [address] Oct, [facility] [address] [id number] [place] [address] Oct, [facility] [address] [id number] [place] [address] Sep, [facility] [address] [id number] [place] [address] Aug, [facility] [address] [id number] [place] [address] 16 Jul, 2010 [facility] [address] [id number] [place] [address] May, [facility] [address] [id number] [place] [address] Dec, [facility] [address] [id number] [place] [address] Nov, [facility] [address] [id number] [place] [address] 14 Oct, 2009 [facility] [address] [id number] [place] [address] Sep, [facility] [address] [id number] [place] [address] 05 Sep, 2009 [facility] [address] [id number] [place] [address] Jul, [facility] [address] [facility] [id number] [place] [address] Jun, [facility] [address] [facility] [id number] [place] [address] May, IMMUNIZATIONS No Known Immunizations SOCIAL HISTORY Never Assessed REASON FOR VISIT PLAN OF CARE VITAL SIGNS MEDICATIONS No Known Medications RESULTS No Results PROCEDURES No Known [...]
--- OUTSIDE RECORDS SUMMARY | 2020-06-11 20:56 | XMS REPORT ---
Author Author Jd ROBLEDO Organization [facility] Address [address] [place] [address] Care Team Providers Care Screening Nurse Name Role Phone PAULA ROBLEDO Unavailable PROBLEMS Type Condition ICD9-CM Code KSU40-OC Code Onset Dates Condition S tatus SNOMED Code Problem Raynauds disease I73.00 Active 195 420230 Problem Venous insufficiency I87.2 Active 42995309 Problem Other chronic pain G89.29 Active 8 2313653 Problem Hypokalemia E87.6 Active 23156286 Problem Prediabetes R73.03 Active 16072753 2 Problem Low back pain M54.5 Active 015666 009 Problem Congenital deafness H90.5 Active 97279231 Problem Dysthymia F34.1 Active 67022511 Problem Neuropathy G62.9 Active [id number] ALLERGIES No Information ENCOUNTERS Encounter Location Date Diagnosis [facility] [id number] [place] [address] Nov, Raynauds disease I73.00 ; Venous insuffi ciency I87.2 ; Prediabetes R73.03 and Neuropathy G62.9 [facility] [id number] [place] [address] Jun, Congenital deafness H90.5 [facility] [id number] [place] [address] Jun, Other chronic pain G89.29 [facility] [id number] [place] [address] Jun, Acute kidney injury N17.9 [facility] [address] [facility] [id number] [address] [place] [address] Jan, Abscess of left knee L02.416 [facility] [address] [id number] [place] [address] Jan, Prediabetes R73.03 ; Raynauds disease I7 3.00 and Venous insufficiency I87.2 [address] [address] [address] Oct, Neuropathy G62.9 ; Low back pain M54.5 a nd URI (upper respiratory infection) J06.9 [place] [address] [address] Jul, Raynauds disease I73.00 and Hypokalemia E87.6 [place] [address] [address] May, Medicare annual wellness visit, initial Z00.00 ; Dysthymia F34.1 ; Raynauds disease I73.00 ; Venous insufficiency I87.2 ; Congenital deafness H90.5 and Neuropathy G62.9 [place] [address] [address] Apr, [place] [address] [address] Apr, Prediabetes R73.03 ; Raynauds disease I7 3.00 ; Venous insufficiency I87.2 ; Neuropathy G62.9 and Dysthymia F34.1 [place] [address] [address] March, [place] [address] [address] Sep, Hyperglycemia R73.9 [place] [address] [address] Sep, Hyperglycemia R73.9 [place] [address] [address] Sep, Raynauds disease I73.00 ; Venous insuffi ciency I87.2 and Encounter for immunization Z23 [place] [address] [address] Jun, [facility] [address] [address] May, [facility] [address] [address] May, Other chronic pain G89.29 [facility] [address] [address] May, Raynauds disease I73.00 ; Venous insuffi ciency I87.2 and Low back pain M54.5 [place] [address] [address] Dec, Raynauds disease I73.00 ; Venous insuffi ciency I87.2 ; Low back pain M54.5 and Other chronic pain G89.29 [place] [address] [address] Nov, [place] [address] [address] Nov, Muscle spasm M62.838 [facility] [address] [facility] [id number] [place] [address] Nov, [facility] [address] [address] Oct, Folliculitis L73.9 and Venous insufficie ncy I87.2 [place] [address] [address] Sep, Dermatitis L30.9 and Raynauds disease I7 3.00 [facility] [address] [facility] [id number] [address] [place] [address] Sep, Rash and nonspecific skin er uption R21 [place] [address] [address] Aug, Skin infection L08.9 [place] [address] [address] May, Infected smith L08.9 [facility] [address] [address] May, Skin infection L08.9 [facility] [address] [address] Dec, [facility] [address] [address] Nov, [facility] [address] [address] Nov, [facility] [address] [address] Nov, Raynauds disease I73.00 [facility] [address] [address] Nov, Raynauds disease I73.00 ; Leg cramps R25 .2 ; Venous insufficiency I87.2 and Routine adult health maintenance Z00.00 [facility] [address] [address] Jul, Infected sebaceous cyst 706.2 [facility] [address] [address] Jun, [facility] [address] [address] Jun, [facility] [address] [address] Jun, Venous insufficiency 459.81 and Raynauds disease 443.0 [facility] [address] [address] Feb, [facility] [address] [address] Feb, [facility] [address] [address] Jan, [facility] [address] [address] Jan, [facility] [place] [facility] [address] [id number] [place] [address] Dec, [facility] [place] [facility] [address] [id number] [place] [address] Dec, [facility] [place] [facility] [address] [id number] [place] [address] Dec, [facility] [place] [facility] [address] [id number] [place] [address] Dec, [facility] [place] [facility] [address] [id number] [place] [address] Nov, [facility] [place] [facility] [address] [id number] [place] [address] Nov, [facility] [place] [facility] [address] [id number] [place] [address] Oct, [facility] [place] [facility] [id number] [place] [address] Oct, [facility] [place] [facility] [address] [id number] [place] [address] Aug, [facility] [place] [facility] [address] [id number] [place] [address] Aug, [facility] [place] [facility] [address] [id number] [place] [address] Aug, [facility] [place] [facility] [address] [id number] [place] [address] Jul, [facility] [place] [facility] [address] [id number] [place] [address] Jul, [facility] [place] [facility] [address] [id number] [place] [address] Jul, [facility] [place] [facility] [address] [id number] [place] [address] Jul, [facility] [place] [facility] [address] [id number] [place] [address] Jun, [facility] [place] [facility] [address] [id number] [place] [address] Jun, [facility] [place] [facility] [address] [facility] [id number] [place] [address] Jun, [facility] [place] [facility] [address] [facility] [id number] [place] [address] Jun, [facility] [place] [facility] [address] [id number] [place] [address] May, [facility] [place] [facility] [address] [facility] [id number] [place] [address] May, [facility] [place] [facility] [address] [facility] [id number] [place] [address] May, [facility] [place] [facility] [address] [id number] [place] [address] May, [facility] [place] [facility] [address] [id number] [place] [address] May, [facility] [place] [facility] [address] [id number] [place] [address] May, [facility] [place] [facility] [address] [id number] [place] [address] May, [facility] [place] [facility] [address] [id number] [place] [address] Apr, [facility] [place] [facility] [address] [id number] [place] [address] Apr, [facility] [place] [facility] [address] [id number] [place] [address] Apr, [facility] [place] [facility] [address] [facility] [id number] [place] [address] Apr, [facility] [place] [facility] [address] [id number] [place] [address] March, [facility] [place] [facility] [address] [id number] [place] [address] March, [facility] [place] [facility] [address] [id number] [place] [address] March, [facility] [place] [facility] [address] [id number] [place] [address] March, [facility] [address] [id number] [place] [address] March, [facility] [place] [facility] [address] [id number] [place] [address] March, [facility] [address] [id number] [place] [address] March, [facility] [place] [facility] [address] [id number] [place] [address] Feb, [facility] [address] [id number] [place] [address] Feb, [facility] [address] [place] [id number] Feb, [facility] [address] [id number] [place] [address] Feb, [facility] [address] [id number] [place] [address] Feb, [facility] [place] [facility] [address] [id number] [place] [address] Feb, [facility] [place] [facility] [address] [id number] [place] [address] Jan, [facility] [place] [facility] [address] [id number] [place] [address] Jan, [facility] [place] [facility] [address] [id number] [place] [address] Jan, [facility] [place] [facility] [address] [id number] [place] [address] Jan, [facility] [place] [facility] [address] [id number] [place] [address] Jan, [facility] [place] [facility] [address] [id number] [place] [address] Jan, [facility] [place] [facility] [address] [id number] [place] [address] Jan, [facility] [place] [facility] [address] [facility] [id number] [place] [address] Jan, [facility] [place] [facility] [address] [id number] [place] [address] Jan, [facility] [place] [facility] [address] [id number] [place] [address] Jan, [facility] [place] [facility] [address] [id number] [place] [address] Jan, [facility] [place] [facility] [address] [facility] [id number] [place] [address] Jan, [facility] [place] [facility] [address] [id number] [place] [address] Jan, [facility] [place] [facility] [address] [id number] [place] [address] Jan, [facility] [place] [facility] [address] [id number] [place] [address] Jan, [facility] [place] [facility] [address] [id number] [place] [address] Jan, [facility] [place] [facility] [address] [id number] [place] [address] Jan, [facility] [place] [facility] [address] [id number] [place] [address] Jan, [facility] [place] [facility] [address] [id number] [place] [address] Dec, [facility] [place] [facility] [address] [id number] [place] [address] Dec, [facility] [place] [facility] [address] [id number] [place] [address] Dec, [facility] [place] [facility] [address] [id number] [place] [address] Dec, [facility] [place] [facility] [address] [id number] [place] [address] Dec, [facility] [place] [facility] [address] [id number] [place] [address] Dec, [facility] [place] [facility] [address] [id number] [place] [address] Dec, [facility] [place] [facility] [address] [id number] [place] [address] Dec, [facility] [place] [facility] [address] [id number] [place] [address] Dec, [facility] [place] [facility] [address] [id number] [place] [address] Dec, [facility] [place] [facility] [address] [id number] [place] [address] Dec, [facility] [place] [facility] [address] [id number] [place] [address] Dec, [facility] [place] [facility] [address] [id number] [place] [address] Nov, [facility] [place] [facility] [address] [id number] [place] [address] Nov, [facility] [place] [facility] [address] [id number] [place] [address] Nov, [facility] [place] [facility] [address] [id number] [place] [address] Nov, [facility] [place] [facility] [address] [id number] [place] [address] Nov, [facility] [place] [facility] [address] [id number] [place] [address] Nov, [facility] [place] [facility] [address] [id number] [place] [address] Nov, [facility] [place] [facility] [id number] [place] [address] Oct, [facility] [place] [facility] [address] [id number] [place] [address] Oct, [facility] [place] [facility] [address] [id number] [place] [address] Sep, [facility] [place] [facility] [address] [id number] [place] [address] Sep, [facility] [place] [facility] [address] [id number] [place] [address] Sep, [facility] [place] [facility] [address] [id number] [place] [address] Sep, [facility] [place] [facility] [address] [id number] [place] [address] Aug, [facility] [place] [facility] [address] [id number] [place] [address] Aug, [facility] [place] [facility] [address] [id number] [place] [address] Aug, [facility] [place] [facility] [address] [id number] [place] [address] Jul, [facility] [place] [facility] [address] [id number] [place] [address] Jul, [facility] [place] [facility] [address] [id number] [place] [address] Jun, [facility] [place] [facility] [address] [id number] [place] [address] Jun, [facility] [place] [facility] [address] [id number] [place] [address] Jun, [facility] [place] [facility] [address] [id number] [place] [address] May, [facility] [place] [facility] [address] [id number] [place] [address] May, [facility] [place] [facility] [address] [id number] [place] [address] May, [facility] [place] [facility] [address] [id number] [place] [address] Apr, [facility] [place] [facility] [address] [id number] [place] [address] Apr, [facility] [place] [facility] [address] [id number] [place] [address] March, [facility] [place] [facility] [address] [id number] [place] [address] Feb, [facility] [place] [facility] [address] [id number] [place] [address] Jan, [facility] [place] [facility] [address] [id number] [place] [address] Jan, [facility] [place] [facility] [address] [id number] [place] [address] Dec, [facility] [place] [facility] [address] [id number] [place] [address] Nov, [facility] [place] [facility] [address] [id number] [place] [address] Oct, [facility] [place] [facility] [address] [id number] [place] [address] Oct, [facility] [place] [facility] [address] [id number] [place] [address] 30 Sep, 2012 [facility] [place] [facility] [address] [id number] [place] [address] Sep, [facility] [place] [facility] [address] [id number] [place] [address] Sep, [facility] [place] [facility] [address] [id number] [place] [address] Sep, [facility] [place] [facility] [address] [id number] [place] [address] Sep, [facility] [place] [facility] [address] [id number] [place] [address] Sep, [facility] [place] [facility] [address] [id number] [place] [address] Sep, [facility] [place] [facility] [address] [id number] [place] [address] Sep, [facility] [place] [facility] [address] [id number] [place] [address] Jul, [facility] [place] [facility] [id number] [place] [address] 30 Jun, 2012 [facility] [place] [facility] [address] [id number] [place] [address] Jun, [facility] [place] [facility] [address] [id number] [place] [address] Jun, [facility] [place] [facility] [address] [id number] [place] [address] Jun, [facility] [place] [facility] [address] [id number] [place] [address] May, [facility] [place] [facility] [address] [id number] [place] [address] Apr, [facility] [place] [facility] [address] [id number] [place] [address] Jan, [facility] [place] [facility] [id number] [place] [address] Dec, [facility] [place] [facility] [id number] [place] [address] Dec, [facility] [place] [facility] [address] [id number] [place] [address] Nov, [facility] [place] [facility] [id number] [place] [address] Oct, [facility] [id number] [place] [address] Oct, [facility] [id number] [place] [address] 18 Aug, 2011 [facility] [address] [id number] [place] [address] 18 Aug, 2011 [facility] [id number] [place] [address] 18 Aug, 2011 [facility] [address] [id number] [place] [address] 14 Aug, 2011 [facility] [id number] [place] [address] 11 Aug, 2011 [facility] [address] [id number] [place] [address] 11 Aug, 2011 [facility] [address] [id number] [place] [address] 19 May, 2011 [facility] [address] [id number] [place] [address] 13 Apr, 2011 [facility] [address] [id number] [place] [address] 18 Feb, 2011 [facility] [address] [id number] [place] [address] Oct, [facility] [address] [id number] [place] [address] Oct, [facility] [address] [id number] [place] [address] Oct, [facility] [address] [id number] [place] [address] Sep, [facility] [address] [id number] [place] [address] Aug, [facility] [address] [id number] [place] [address] 16 Jul, 2010 [facility] [address] [id number] [place] [address] May, [facility] [address] [id number] [place] [address] Dec, [facility] [address] [id number] [place] [address] Nov, [facility] [address] [id number] [place] [address] 14 Oct, 2009 [facility] [address] [id number] [place] [address] Sep, [facility] [address] [id number] [place] [address] 05 Sep, 2009 [facility] [address] [id number] [place] [address] Jul, [facility] [address] [facility] [id number] [place] [address] Jun, [facility] [address] [facility] [id number] [place] [address] May, IMMUNIZATIONS No Known Immunizations SOCIAL HISTORY [...]
--- OUTSIDE RECORDS SUMMARY | 2020-06-11 20:56 | XMS REPORT ---
Author Author Jd ROBLEDO Organization [facility] Address [address] [place] [address] Care Team Providers Care Investigator Internal Affairs Name Role Phone PAULA ROBLEDO Unavailable PROBLEMS Type Condition ICD9-CM Code NNU59-XM Code Onset Dates Condition S tatus SNOMED Code Problem Raynauds disease I73.00 Active 195 519933 Problem Venous insufficiency I87.2 Active 21973825 Problem Other chronic pain G89.29 Active 8 0193116 Problem Hypokalemia E87.6 Active 50437535 Problem Prediabetes R73.03 Active 55913020 2 Problem Low back pain M54.5 Active 342441 009 Problem Congenital deafness H90.5 Active 96318391 Problem Dysthymia F34.1 Active 42235886 Problem Neuropathy G62.9 Active [id number] ALLERGIES No Information ENCOUNTERS Encounter Location Date Diagnosis [facility] [id number] [place] [address] Nov, Raynauds disease I73.00 ; Venous insuffi ciency I87.2 ; Prediabetes R73.03 and Neuropathy G62.9 [facility] [id number] [place] [address] Jun, Congenital deafness H90.5 [facility] [id number] [place] [address] Jun, Other chronic pain G89.29 [facility] [id number] [place] [address] Jun, Acute kidney injury N17.[address] [facility] [address] [facility] [id number] [address] [place] [address] Jan, Abscess of left knee L02.416 [facility] [id number] [place] [address] Jan, Prediabetes R73.03 ; Raynauds disease I7 3.00 and Venous insufficiency I87.2 [address] [place] [address] [address] Oct, Neuropathy G62.9 ; Low back pain M54.5 a nd URI (upper respiratory infection) J06.9 [place] [address] [address] Jul, Raynauds disease I73.00 and Hypokalemia E87.6 [place] [address] [address] May, Medicare annual wellness visit, initial Z00.00 ; Dysthymia F34.1 ; Raynauds disease I73.00 ; Venous insufficiency I87.2 ; Congenital deafness H90.5 and Neuropathy G62.9 [place] [address] [address] Apr, [place] [address] [address] Apr, Prediabetes R73.03 ; Raynauds disease I7 3.00 ; Venous insufficiency I87.2 ; Neuropathy G62.9 and Dysthymia F34.1 [place] [address] [address] March, [address] [address] [address] Sep, Hyperglycemia R73.9 [place] [address] [address] Sep, Hyperglycemia R73.9 [place] [address] [address] Sep, Raynauds disease I73.00 ; Venous insuffi ciency I87.2 and Encounter for immunization Z23 [place] [address] [address] Jun, [facility] [address] [address] May, [facility] [address] [address] May, Other chronic pain G89.29 [facility] [address] [address] May, Raynauds disease I73.00 ; Venous insuffi ciency I87.2 and Low back pain M54.5 [place] [address] [address] Dec, Raynauds disease I73.00 ; Venous insuffi ciency I87.2 ; Low back pain M54.5 and Other chronic pain G89.29 [place] [address] [address] Nov, [place] [address] [address] Nov, Muscle spasm M62.[address] [facility] [address] [facility] [id number] [place] [address] Nov, [facility] [address] [address] Oct, Folliculitis L73.9 and Venous insufficie ncy I87.2 [place] [address] [address] Sep, Dermatitis L30.9 and Raynauds disease I7 3.[address] [facility] [address] [facility] [id number] [address] [place] [address] Sep, Rash and nonspecific skin er uption R21 [place] [address] [address] Aug, Skin infection L08.9 [place] [address] [address] May, Infected smith L08.9 [facility] [address] [address] May, Skin infection L08.9 [facility] [address] [address] Dec, [facility] [address] [address] Nov, [facility] [address] [address] Nov, [facility] [address] [address] Nov, Raynauds disease I73.00 [facility] [address] [address] Nov, Raynauds disease I73.00 ; Leg cramps R25 .2 ; Venous insufficiency I87.2 and Routine adult health maintenance Z00.00 [facility] [address] [address] Jul, Infected sebaceous cyst 706.2 [facility] [address] [address] Jun, [facility] [address] [address] Jun, [facility] [address] [address] Jun, Venous insufficiency 459.81 and Raynauds disease 443.0 [facility] [address] [address] Feb, [facility] [address] [address] Feb, [facility] [address] [address] Jan, [facility] [address] [address] Jan, [facility] [place] [facility] [address] [id number] [place] [address] Dec, [facility] [place] [facility] [address] [id number] [place] [address] Dec, [facility] [place] [facility] [address] [id number] [place] [address] Dec, [facility] [place] [facility] [address] [id number] [place] [address] Dec, [facility] [place] [facility] [address] [id number] [place] [address] Nov, [facility] [place] [facility] [address] [id number] [place] [address] Nov, [facility] [place] [facility] [address] [id number] [place] [address] Oct, [facility] [place] [facility] [id number] [place] [address] Oct, [facility] [place] [facility] [address] [id number] [place] [address] Aug, [facility] [place] [facility] [address] [id number] [place] [address] Aug, [facility] [place] [facility] [address] [id number] [place] [address] Aug, [facility] [place] [facility] [address] [id number] [place] [address] Jul, [facility] [place] [facility] [address] [id number] [place] [address] Jul, [facility] [place] [facility] [address] [id number] [place] [address] Jul, [facility] [place] [facility] [address] [id number] [place] [address] Jul, [facility] [place] [facility] [address] [id number] [place] [address] Jun, [facility] [place] [facility] [address] [id number] [place] [address] Jun, [facility] [place] [facility] [address] [facility] [id number] [facility] [place] [address] Jun, [facility] [place] [facility] [address] [facility] [id number] [facility] [place] [address] Jun, [facility] [place] [facility] [address] [id number] [facility] [place] [address] May, [facility] [place] [facility] [address] [facility] [id number] [place] [address] May, [facility] [place] [facility] [address] [facility] [id number] [facility] [place] [address] May, [facility] [place] [facility] [address] [id number] [facility] [place] [address] May, [facility] [place] [facility] [address] [id number] [facility] [place] [address] May, [facility] [place] [facility] [address] [id number] [place] [address] May, [facility] [place] [facility] [address] [id number] [facility] [place] [address] May, [facility] [place] [facility] [address] [id number] [place] [address] Apr, [facility] [place] [facility] [address] [id number] [place] [address] Apr, [facility] [place] [facility] [address] [id number] [place] [address] Apr, [facility] [place] [facility] [address] [facility] [id number] [place] [address] Apr, [facility] [place] [facility] [address] [id number] [place] [address] March, [facility] [place] [facility] [address] [id number] [place] [address] March, [facility] [place] [facility] [address] [id number] [place] [address] March, [facility] [place] [facility] [address] [id number] [place] [address] March, [facility] [address] [id number] [place] [address] March, [facility] [place] [facility] [address] [id number] [place] [address] March, [facility] [address] [id number] [place] [address] March, [facility] [place] [facility] [address] [id number] [place] [address] Feb, [facility] [address] [id number] [place] [address] Feb, [facility] [address] [place] [id number] Feb, [facility] [address] [id number] [place] [address] Feb, [facility] [address] [id number] [place] [address] Feb, [facility] [place] [facility] [address] [id number] [place] [address] Feb, [facility] [place] [facility] [address] [id number] [place] [address] Jan, [facility] [place] [facility] [address] [id number] [place] [address] Jan, [facility] [place] [facility] [address] [id number] [place] [address] Jan, [facility] [place] [facility] [address] [id number] [place] [address] Jan, [facility] [place] [facility] [address] [id number] [place] [address] Jan, [facility] [place] [facility] [address] [id number] [place] [address] Jan, [facility] [place] [facility] [address] [id number] [place] [address] Jan, [facility] [place] [facility] [address] [facility] [id number] [place] [address] Jan, [facility] [place] [facility] [address] [id number] [place] [address] Jan, [facility] [place] [facility] [address] [id number] [place] [address] Jan, [facility] [place] [facility] [address] [id number] [place] [address] Jan, [facility] [place] [facility] [address] [facility] [id number] [place] [address] Jan, [facility] [place] [facility] [address] [id number] [place] [address] Jan, [facility] [place] [facility] [address] [id number] [place] [address] Jan, [facility] [place] [facility] [address] [id number] [place] [address] Jan, [facility] [place] [facility] [address] [id number] [place] [address] Jan, [facility] [place] [facility] [address] [id number] [place] [address] Jan, [facility] [place] [facility] [address] [id number] [place] [address] Jan, [facility] [place] [facility] [address] [id number] [place] [address] Dec, [facility] [place] [facility] [address] [id number] [place] [address] Dec, [facility] [place] [facility] [address] [id number] [place] [address] Dec, [facility] [place] [facility] [address] [id number] [place] [address] Dec, [facility] [place] [facility] [address] [id number] [place] [address] Dec, [facility] [place] [facility] [address] [id number] [place] [address] Dec, [facility] [place] [facility] [address] [id number] [place] [address] Dec, [facility] [place] [facility] [address] [id number] [place] [address] Dec, [facility] [place] [facility] [address] [id number] [place] [address] Dec, [facility] [place] [facility] [address] [id number] [place] [address] Dec, [facility] [place] [facility] [address] [id number] [place] [address] Dec, [facility] [place] [facility] [address] [id number] [place] [address] Dec, [facility] [place] [facility] [address] [id number] [place] [address] Nov, [facility] [place] [facility] [address] [id number] [place] [address] Nov, [facility] [place] [facility] [address] [id number] [place] [address] Nov, [facility] [place] [facility] [address] [id number] [place] [address] Nov, [facility] [place] [facility] [address] [id number] [place] [address] Nov, [facility] [place] [facility] [address] [id number] [place] [address] Nov, [facility] [place] [facility] [address] [id number] [place] [address] Nov, [facility] [place] [facility] [id number] [place] [address] Oct, [facility] [place] [facility] [address] [id number] [place] [address] Oct, [facility] [place] [facility] [address] [id number] [place] [address] Sep, [facility] [place] [facility] [address] [id number] [place] [address] Sep, [facility] [place] [facility] [address] [id number] [place] [address] Sep, [facility] [place] [facility] [address] [id number] [place] [address] Sep, [facility] [place] [facility] [address] [id number] [place] [address] Aug, [facility] [place] [facility] [address] [id number] [place] [address] Aug, [facility] [place] [facility] [address] [id number] [place] [address] Aug, [facility] [place] [facility] [address] [id number] [place] [address] Jul, [facility] [place] [facility] [address] [id number] [place] [address] Jul, [facility] [place] [facility] [address] [id number] [place] [address] Jun, [facility] [place] [facility] [address] [id number] [place] [address] Jun, [facility] [place] [facility] [address] [id number] [place] [address] Jun, [facility] [place] [facility] [address] [id number] [place] [address] May, [facility] [place] [facility] [address] [id number] [place] [address] May, [facility] [place] [facility] [address] [id number] [place] [address] May, [facility] [place] [facility] [address] [id number] [place] [address] Apr, [facility] [place] [facility] [address] [id number] [place] [address] Apr, [facility] [place] [facility] [address] [id number] [place] [address] March, [facility] [place] [facility] [address] [id number] [place] [address] Feb, [facility] [place] [facility] [address] [id number] [place] [address] Jan, [facility] [place] [facility] [address] [id number] [place] [address] Jan, [facility] [place] [facility] [address] [id number] [place] [address] Dec, [facility] [place] [facility] [address] [id number] [place] [address] Nov, [facility] [place] [facility] [address] [id number] [place] [address] Oct, [facility] [place] [facility] [address] [id number] [place] [address] Oct, [facility] [place] [facility] [address] [id number] [place] [address] 30 Sep, 2012 [facility] [place] [facility] [address] [id number] [place] [address] Sep, [facility] [place] [facility] [address] [id number] [place] [address] Sep, [facility] [place] [facility] [address] [id number] [place] [address] Sep, [facility] [place] [facility] [address] [id number] [place] [address] Sep, [facility] [place] [facility] [address] [id number] [place] [address] Sep, [facility] [place] [facility] [address] [id number] [place] [address] Sep, [facility] [place] [facility] [address] [id number] [place] [address] Sep, [facility] [place] [facility] [address] [id number] [place] [address] Jul, [facility] [place] [facility] [id number] [place] [address] 30 Jun, 2012 [facility] [place] [facility] [address] [id number] [place] [address] Jun, [facility] [place] [facility] [address] [id number] [place] [address] Jun, [facility] [place] [facility] [address] [id number] [place] [address] Jun, [facility] [place] [facility] [address] [id number] [place] [address] May, [facility] [place] [facility] [address] [id number] [place] [address] Apr, [facility] [place] [facility] [address] [id number] [place] [address] Jan, [facility] [place] [facility] [id number] [place] [address] Dec, [facility] [place] [facility] [id number] [place] [address] Dec, [facility] [place] [facility] [address] [id number] [place] [address] Nov, [facility] [place] [facility] [id number] [place] [address] Oct, [facility] [place] [facility] [id number] [place] [address] Oct, [facility] [place] [facility] [id number] [place] [address] 18 Aug, 2011 [facility] [place] [facility] [address] [id number] [place] [address] 18 Aug, 2011 [facility] [place] [facility] [id number] [place] [address] 18 Aug, 2011 [facility] [place] [facility] [address] [id number] [place] [address] 14 Aug, 2011 [facility] [place] [facility] [id number] [place] [address] 11 Aug, 2011 [facility] [place] [facility] [address] [id number] [place] [address] 11 Aug, 2011 [facility] [place] [facility] [address] [id number] [place] [address] 19 May, 2011 [facility] [place] [facility] [address] [id number] [place] [address] 13 Apr, 2011 [facility] [place] [facility] [address] [id number] [place] [address] 18 Feb, 2011 [facility] [place] [facility] [address] [id number] [place] [address] Oct, [facility] [address] [id number] [place] [address] Oct, [facility] [address] [id number] [place] [address] Oct, [facility] [address] [id number] [place] [address] Sep, [facility] [address] [id number] [place] [address] Aug, [facility] [address] [id number] [place] [address] 16 Jul, 2010 [facility] [address] [id number] [place] [address] May, [facility] [address] [id number] [place] [address] Dec, [facility] [address] [id number] [place] [address] Nov, [facility] [address] [id number] [place] [address] 14 Oct, 2009 [facility] [address] [id number] [place] [address] Sep, [facility] [address] [id number] [place] [address] 05 Sep, 2009 [facility] [address] [id number] [place] [address] Jul, [facility] [address] [facility] [id number] [place] [address] Jun, [facility] [address] [facility] [id number] [place] [address] May, IMMUNIZATIONS No Known Immunizations SOCIAL HISTORY [...]
--- OUTSIDE RECORDS SUMMARY | 2020-06-11 20:57 | XMS REPORT ---
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 Name Role Phone DUC ANDRE Unavailable PROBLEMS Type Condition ICD9-CM Code [id number] Code Onset Dates Condition S tatus SNOMED Code Problem Raynauds disease I73.00 Active 195 201251 Problem Venous insufficiency I87.2 Active 53899243 Problem Neuropathy G62.9 Active 199676315 Problem Hypokalemia E87.6 Active 50168564 Problem Other chronic pain G89.29 Active 8 2945681 Problem Low back pain M54.5 Active 485586 009 Problem Congenital deafness H90.5 Active 28918292 Problem Dysthymia F34.1 Active 12617220 ALLERGIES No Information ENCOUNTERS Encounter Location Date Diagnosis [facility] [address] [address] Nov, [facility] [address] [place] [address] Jun, Congenital deafness H90.5 [facility] [address] [address] Jun, Other chronic pain G89.29 [facility] [address] [address] Jun, Acute kidney injury N17.9 [facility] [address] [facility] [id number] [address] [address] Jan, Abscess of left knee L02.416 [facility] [id number] [place] [address] Jan, Prediabetes R73.03 ; Raynauds disease I7 3.00 and Venous insufficiency I87.2 [facility] [address] [address] Oct, Neuropathy G62.9 ; Low back pain M54.5 a nd URI (upper respiratory infection) J06.9 [place] [address] [address] Jul, Raynauds disease I73.00 and Hypokalemia E87.6 [place] [address] [address] May, Medicare annual wellness visit, initial Z00.00 ; Dysthymia F34.1 ; Raynauds disease I73.00 ; Venous insufficiency I87.2 ; Congenital deafness H90.5 and Neuropathy G62.9 [place] [address] [address] Apr, [place] [address] [address] Apr, Prediabetes R73.03 ; Raynauds disease I7 3.00 ; Venous insufficiency I87.2 ; Neuropathy G62.9 and Dysthymia F34.1 [place] [address] [address] March, [place] [address] [address] Sep, Hyperglycemia R73.9 [place] [address] [address] Sep, Hyperglycemia R73.9 [place] [address] [address] Sep, Raynauds disease I73.00 ; Venous insuffi ciency I87.2 and Encounter for immunization Z23 [place] [address] [address] Jun, [place] [address] [address] May, [place] [address] [address] 18 May, 2017 Other chronic pain G89.29 [facility] [address] [address] 03 May, 2017 Raynauds disease I73.00 ; Venous insuffi ciency I87.2 and Low back pain M54.5 [place] [address] [address] 13 Dec, 2016 Raynauds disease I73.00 ; Venous insuffi ciency I87.2 ; Low back pain M54.5 and Other chronic pain G89.29 [place] [address] [address] Nov, [place] [address] [address] Nov, Muscle spasm M62.838 [facility] [address] [id number] [address] [address] Nov, [place] [address] [address] Oct, Folliculitis L73.9 and Venous insufficie ncy I87.2 [place] [address] [address] Sep, Dermatitis L30.9 and Raynauds disease I7 3.00 [facility] [address] [id number] [address] [address] Sep, Rash and nonspecific skin er uption R21 [place] [address] [address] Aug, Skin infection L08.9 [place] [address] [address] 18 May, 2016 Infected smith L08.9 [place] [address] [address] May, Skin infection L08.9 [place] [id number] [place] [address] Dec, [facility] [address] [address] Nov, [facility] [address] [address] Nov, [facility] [address] [address] Nov, Raynauds disease I73.00 [facility] [address] [address] Nov, Raynauds disease I73.00 ; Leg cramps R25 .2 ; Venous insufficiency I87.2 and Routine adult health maintenance Z00.00 [facility] [address] [address] Jul, Infected sebaceous cyst 706.2 [facility] [address] [address] Jun, [facility] [address] [address] Jun, [facility] [address] [address] Jun, Venous insufficiency 459.81 and Raynauds disease 443.0 [facility] [address] [address] Feb, [facility] [address] [address] Feb, [facility] [address] [address] Jan, [facility] [address] [address] Jan, [facility] [address] [address] Dec, [facility] [address] [address] Dec, 2014 [facility] [place] [facility] [address] [facility] [id number] [place] [address] Dec, [facility] [place] [facility] [address] [id number] [place] [address] Dec, [facility] [place] [facility] [address] [id number] [place] [address] Nov, [facility] [place] [facility] [address] [id number] [place] [address] Nov, [facility] [place] [facility] [address] [id number] [place] [address] Oct, [facility] [place] [facility] [address] [id number] [place] [address] Oct, [facility] [place] [facility] [address] [id number] [place] [address] Aug, [facility] [place] [facility] [address] [id number] [place] [address] Aug, [facility] [place] [facility] [address] [id number] [place] [address] Aug, [facility] [place] [facility] [address] [id number] [place] [address] Jul, [facility] [place] [facility] [address] [id number] [place] [address] Jul, [facility] [place] [facility] [address] [id number] [place] [address] Jul, [facility] [place] [facility] [address] [id number] [place] [address] Jul, [facility] [place] [facility] [address] [id number] [place] [address] Jun, [facility] [place] [facility] [address] [id number] [place] [address] Jun, [facility] [place] [facility] [address] [id number] [place] [address] Jun, [facility] [place] [facility] [address] [facility] [id number] [place] [address] Jun, [facility] [place] [facility] [address] [facility] [id number] [place] [address] May, [facility] [place] [facility] [address] [facility] [id number] [place] [address] May, [facility] [place] [facility] [address] [id number] [place] [address] May, [facility] [place] [facility] [address] [facility] [id number] [place] [address] May, [facility] [place] [facility] [address] [id number] [place] [address] May, [facility] [place] [facility] [address] [id number] [place] [address] May, [facility] [place] [facility] [address] [id number] [place] [address] May, [facility] [place] [facility] [address] [id number] [place] [address] Apr, [facility] [place] [facility] [address] [id number] [place] [address] Apr, [facility] [place] [facility] [address] [id number] [place] [address] Apr, [facility] [place] [facility] [address] [id number] [place] [address] Apr, [facility] [place] [facility] [address] [id number] [place] [address] March, [facility] [place] [facility] [address] [facility] [id number] [place] [address] March, [facility] [place] [facility] [address] [id number] [place] [address] March, [facility] [place] [facility] [address] [id number] [place] [address] March, [facility] [place] [facility] [address] [id number] [place] [address] March, [facility] [address] [id number] [place] [address] March, [facility] [address] [id number] [place] [address] March, [facility] [address] [id number] [place] [address] Feb, [facility] [address] [id number] [place] [address] Feb, [facility] [id number] Feb, [facility] [address] [id number] [place] [address] Feb, [facility] [address] [id number] [place] [address] Feb, [facility] [address] [id number] [place] [address] Feb, [facility] [place] [facility] [address] [id number] [place] [address] Jan, [facility] [place] [facility] [address] [id number] [place] [address] Jan, [facility] [place] [facility] [address] [id number] [place] [address] Jan, [facility] [address] [id number] [place] [address] Jan, [facility] [place] [facility] [address] [id number] [place] [address] Jan, [facility] [place] [facility] [address] [id number] [place] [address] Jan, [facility] [place] [facility] [address] [id number] [place] [address] Jan, [facility] [place] [facility] [address] [id number] [place] [address] Jan, [facility] [place] [facility] [address] [id number] [place] [address] Jan, [facility] [place] [facility] [address] [facility] [id number] [facility] [place] [address] Jan, [facility] [place] [facility] [address] [facility] [id number] [facility] [place] [address] Jan, [facility] [place] [facility] [address] [id number] [facility] [place] [address] Jan, [facility] [place] [facility] [address] [id number] [place] [address] Jan, [facility] [place] [facility] [address] [facility] [id number] [facility] [place] [address] Jan, [facility] [place] [facility] [address] [id number] [place] [address] Jan, [facility] [place] [facility] [address] [id number] [place] [address] Jan, [facility] [place] [facility] [address] [id number] [facility] [place] [address] Jan, [facility] [place] [facility] [address] [id number] [facility] [place] [address] Jan, [facility] [place] [facility] [address] [id number] [facility] [place] [address] Dec, [facility] [place] [facility] [address] [id number] [place] [address] Dec, [facility] [place] [facility] [address] [id number] [facility] [place] [address] Dec, [facility] [place] [facility] [address] [facility] [id number] [facility] [place] [address] Dec, [facility] [place] [facility] [address] [id number] [place] [address] 14 Dec, 2013 [facility] [place] [facility] [address] [id number] [place] [address] Dec, [facility] [place] [facility] [address] [id number] [place] [address] 07 Dec, 2013 [facility] [place] [facility] [address] [id number] [place] [address] Dec, [facility] [place] [facility] [address] [id number] [place] [address] Dec, [facility] [place] [facility] [address] [id number] [place] [address] Dec, [facility] [place] [facility] [address] [id number] [place] [address] Dec, [facility] [place] [facility] [address] [id number] [place] [address] Dec, [facility] [place] [facility] [address] [id number] [place] [address] Nov, [facility] [place] [facility] [address] [id number] [place] [address] Nov, [facility] [place] [facility] [address] [id number] [place] [address] Nov, [facility] [place] [facility] [address] [id number] [place] [address] Nov, [facility] [place] [facility] [address] [id number] [place] [address] Nov, [facility] [place] [facility] [address] [id number] [place] [address] Nov, [facility] [place] [facility] [address] [id number] [place] [address] Nov, [facility] [place] [facility] [address] [id number] [place] [address] Oct, [facility] [place] [facility] [address] [id number] [place] [address] Oct, [facility] [place] [facility] [address] [id number] [place] [address] Sep, [facility] [place] [facility] [address] [id number] [place] [address] Sep, [facility] [place] [facility] [address] [id number] [place] [address] Sep, [facility] [place] [facility] [address] [id number] [place] [address] Sep, [facility] [place] [facility] [address] [id number] [place] [address] Aug, [facility] [place] [facility] [address] [id number] [place] [address] Aug, [facility] [place] [facility] [address] [id number] [place] [address] Aug, [facility] [place] [facility] [address] [id number] [place] [address] Jul, [facility] [place] [facility] [address] [id number] [place] [address] Jul, [facility] [place] [facility] [address] [id number] [place] [address] Jun, [facility] [place] [facility] [address] [id number] [place] [address] Jun, [facility] [place] [facility] [address] [id number] [place] [address] Jun, [facility] [place] [facility] [address] [id number] [place] [address] May, [facility] [place] [facility] [address] [id number] [place] [address] May, [facility] [place] [facility] [address] [id number] [place] [address] May, [facility] [place] [facility] [address] [id number] [place] [address] Apr, [facility] [place] [facility] [address] [id number] [place] [address] Apr, [facility] [place] [facility] [address] [id number] [place] [address] March, [facility] [place] [facility] [address] [id number] [place] [address] Feb, [facility] [place] [facility] [address] [id number] [place] [address] Jan, [facility] [place] [facility] [address] [id number] [place] [address] Jan, [facility] [place] [facility] [address] [id number] [place] [address] Dec, [facility] [place] [facility] [address] [id number] [place] [address] Nov, [facility] [place] [facility] [address] [id number] [place] [address] Oct, [facility] [place] [facility] [address] [id number] [place] [address] Oct, [facility] [place] [facility] [address] [id number] [place] [address] Sep, [facility] [place] [facility] [address] [id number] [place] [address] Sep, [facility] [place] [facility] [address] [id number] [place] [address] Sep, [facility] [place] [facility] [address] [id number] [place] [address] Sep, [facility] [place] [facility] [address] [id number] [place] [address] Sep, [facility] [place] [facility] [address] [id number] [place] [address] Sep, [facility] [place] [facility] [address] [id number] [place] [address] Sep, [facility] [place] [facility] [address] [id number] [place] [address] Sep, [facility] [place] [facility] [address] [id number] [place] [address] Jul, [facility] [place] [facility] [address] [id number] [place] [address] Jun, [facility] [place] [facility] [address] [id number] [place] [address] Jun, [facility] [place] [facility] [address] [id number] [place] [address] Jun, [facility] [place] [facility] [address] [id number] [place] [address] Jun, [facility] [place] [facility] [address] [id number] [place] [address] May, [facility] [place] [facility] [address] [id number] [place] [address] Apr, [facility] [place] [facility] [address] [facility] [id number] [place] [address] Jan, [facility] [place] [facility] [address] [id number] [place] [address] Dec, [facility] [place] [facility] [address] [id number] [place] [address] Dec, [facility] [place] [facility] [address] [id number] [place] [address] Nov, [facility] [place] [facility] [address] [id number] [place] [address] Oct, [facility] [place] [facility] [address] [id number] [place] [address] Oct, [facility] [place] [facility] [address] [id number] [place] [address] 18 Aug, 2011 [facility] [place] [facility] [address] [id number] [place] [address] 18 Aug, 2011 [facility] [address] [id number] [place] [address] 18 Aug, 2011 [facility] [address] [id number] [place] [address] 14 Aug, 2011 [facility] [address] [id number] [place] [address] Aug, [facility] [address] [id number] [place] [address] Aug, [facility] [address] [id number] [place] [address] May, [facility] [address] [id number] [place] [address] Apr, [facility] [address] [id number] [place] [address] 18 Feb, 2011 [facility] [address] [id number] [place] [address] Oct, [facility] [address] [id number] [place] [address] Oct, [facility] [address] [id number] [place] [address] Oct, [facility] [address] [id number] [place] [address] Sep, [facility] [address] [id number] [place] [address] Aug, [facility] [address] [id number] [place] [address] 16 Jul, 2010 [facility] [address] [id number] [place] [address] May, [facility] [id number] [place] [address] Dec, [facility] [address] [id number] [place] [address] Nov, [facility] [address] [id number] [place] [address] 14 Oct, 2009 [facility] [address] [id number] [place] [address] 27 Sep, 2009 [facility] [id number] [place] [address] 05 Sep, 2009 [facility] [address] [id number] [place] [address] 14 Jul, 2009 [facility] [address] [id number] [place] [address] 17 Jun, 2009 [facility] [address] [facility] [id number] [place] [address] May, IMMUNIZATIONS No Known Immunizations SOCIAL HISTORY Never Assessed REASON FOR VISIT PLAN OF CARE VITAL SIGNS Height 73 in 2014-06-06 Weight 218.5 lbs 2014-06-06 Temperature 98.6 degrees Fahrenheit 2014-06-06 Heart Rate 80 bpm 2014-06-06 Respiratory Rate 20 2014-06-06 Blood pressure systolic 122 mmHg 2014-06-06 Blood pressure diastolic 84 mmHg 2014-06-06 MEDICATIONS Unknown Medications RESULTS No Results PROCEDURES Procedure Date Ordered Result Body Site EXTREMITY STUDY June 06, 2014 INSTRUCTIONS MEDICATIONS ADMINISTERED No Known Medications [...]
--- OUTSIDE RECORDS SUMMARY | 2020-06-11 20:57 | XMS REPORT ---
Author Author Jd ROBLEDO Organization [facility] Address [address] [place] [address] Care Team Providers Care Temperature Regulator Pyrometer Name Role Phone PAULA ROBLEDO Unavailable PROBLEMS Type Condition ICD9-CM Code [id number] Code Onset Dates Condition S tatus SNOMED Code Problem Raynauds disease I73.00 Active 195 265460 Problem Venous insufficiency I87.2 Active 26777464 Problem Neuropathy G62.9 Active 201130105 Problem Hypokalemia E87.6 Active 24660319 Problem Other chronic pain G89.29 Active 8 1140007 Problem Low back pain M54.5 Active 683235 009 Problem Congenital deafness H90.5 Active 73218933 Problem Dysthymia F34.1 Active 12567147 ALLERGIES No Information ENCOUNTERS Encounter Location Date Diagnosis [facility] [address] [id number] [address] [place] [address] Jun, Congenital deafness H90.5 [facility] [address] [facility] [id number] [address] [place] [address] Jun, Other chronic pain G89.29 [facility] [address] [facility] [id number] [address] [place] [address] Jun, Acute kidney injury N17.9 [facility] [address] [facility] [id number] [address] [place] [address] Jan, Abscess of left knee L02.416 [facility] [address] [id number] [address] [place] [address] Jan, Prediabetes R73.03 ; Raynaud s disease I73.00 and Venous insufficiency I87.2 [facility] [address] [facility] [id number] [address] [place] [address] Oct, Neuropathy G62.9 ; Low back pain M54.5 and URI (upper respiratory infection) J06.9 [facility] [address] [facility] [id number] [address] [place] [address] Jul, Raynauds disease I73.00 and Hypokalemia E87.6 [facility] [address] [id number] [address] [place] [address] May, Medicare annual wellness vis it, initial Z00.00 ; Dysthymia F34.1 ; Raynauds disease I73.00 ; Venous insufficiency I87.2 ; Congenital deafness H90.5 and Neuropathy G62.9 [place] [address] [id number] [address] [place] [address] Apr, [place] [address] [id number] [address] [place] [address] Apr, Prediabetes R73.03 ; Raynaud s disease I73.00 ; Venous insufficiency I87.2 ; Neuropathy G62.9 and Dysthymia F34.1 [place] [id number] [place] [address] March, [place] [address] [id number] [address] [place] [address] Sep, Hyperglycemia R73.9 [facility] [address] [id number] [address] [place] [address] Sep, Hyperglycemia R73.9 [facility] [id number] [address] [place] [address] Sep, Raynauds disease I73.00 ; Ve nous insufficiency I87.2 and Encounter for immunization Z23 [facility] [address] [facility] [id number] [address] [place] [address] Jun, [facility] [id number] [address] [place] [address] May, [facility] [id number] [address] [place] [address] 18 May, 2017 Other chronic pain G89.29 [facility] [address] [facility] [id number] [address] [place] [address] 03 May, 2017 Raynauds disease I73.00 ; Ve nous insufficiency I87.2 and Low back pain M54.5 [facility] [id number] [address] [place] [address] 13 Dec, 2016 Raynauds disease I73.00 ; Ve nous insufficiency I87.2 ; Low back pain M54.5 and Other chronic pain G89.29 [facility] [address] [facility] [id number] [address] [place] [address] Nov, [facility] [address] [id number] [address] [place] [address] Nov, Muscle spasm M62.838 [facility] [id number] [address] [place] [address] 16 Nov, 2016 [facility] [id number] [address] [place] [address] Oct, Folliculitis L73.9 and Venou s insufficiency I87.2 [place] [address] [id number] [address] [place] [address] Sep, Dermatitis L30.9 and Raynaud s disease I73.00 [facility] [address] [id number] [address] [place] [address] Sep, Rash and nonspecific skin er uption R21 [facility] [address] [facility] [id number] [address] [place] [address] Aug, Skin infection L08.9 [place] [address] [id number] [address] [place] [address] 18 May, 2016 Infected smith L08.9 [place] [address] [id number] [address] [place] [address] May, Skin infection L08.9 [facility] [address] [id number] [address] [place] [address] Dec, [facility] [address] [facility] [id number] [address] [place] [address] Nov, [facility] [address] [facility] [id number] [address] [place] [address] Nov, [facility] [address] [facility] [id number] [address] [place] [address] Nov, Raynauds disease I73.00 [facility] [address] [facility] [id number] [address] [place] [address] Nov, Raynauds disease I73.00 ; Le g cramps R25.2 ; Venous insufficiency I87.2 and Routine adult health maintenance Z00.00 [facility] [address] [facility] [id number] [address] [place] [address] Jul, Infected sebaceous cyst 706. 2 [facility] [address] [id number] [address] [place] [address] Jun, [facility] [address] [facility] [id number] [address] [place] [address] Jun, [facility] [address] [facility] [id number] [address] [place] [address] Jun, Venous insufficiency 459.81 and Raynauds disease 443.0 [facility] [address] [facility] [id number] [address] [place] [address] Feb, [facility] [address] [facility] [id number] [address] [place] [address] Feb, [facility] [address] [facility] [id number] [address] [place] [address] Jan, [facility] [address] [facility] [id number] [address] [place] [address] Jan, [facility] [address] [id number] [address] [place] [address], [place] [address] Dec, 2014 [facility] [address] [id number] [address] [place] [address], [place] [address] Dec, 2014 [facility] [address] [id number] [address] [place] [address], [place] [address] Dec, 2014 [facility] [address] [id number] [address] [place] [address], [place] [address] Dec, 2014 [facility] [address] [id number] [address] [place] [address], [place] [address] Nov, [facility] [address] [id number] [address] [place] [address], [place] [address] Nov, [facility] [address] [id number] [address] [place] [address], [place] [address] Oct, [facility] [address] [id number] [address] [place] [address], [place] [address] Oct, [facility] [address] [id number] [address] [place] [address], [place] [address] Aug, [facility] [address] [id number] [address] [place] [address], [place] [address] Aug, [facility] [address] [id number] [address] [place] [address], [place] [address] Aug, [facility] [address] [id number] [address] [place] [address], [place] [address] Jul, [facility] [address] [id number] [address] [place] [address], [place] [address] Jul, [facility] [address] [id number] [address] [place] [address], [place] [address] Jul, [facility] [address] [id number] [address] [place] [address], [place] [address] Jul, [facility] [address] [id number] [address] [place] [address], [place] [address] Jun, [facility] [address] [id number] [address] [place] [address], [place] [address] Jun, [facility] [address] [id number] [address] [place] [address], [place] [address] Jun, [facility] [address] [id number] [address] [place] [address], [place] [address] Jun, [facility] [address] [id number] [address] [place] [address], [place] [address] May, [facility] [address] [id number] [address] [place] [address], [place] [address] May, [facility] [address] [id number] [address] [place] [address], [place] [address] May, [facility] [address] [id number] [address] [place] [address], [place] [address] May, [facility] [address] [id number] [address] [place] [address], [place] [address] May, [facility] [address] [id number] [address] [place] [address], [place] [address] May, [facility] [address] [id number] [address] [place] [address], [place] [address] May, [facility] [address] [id number] [address] [place] [address], [place] [address] Apr, [facility] [address] [id number] [address] [place] [address], [place] [address] Apr, [facility] [address] [id number] [address] [place] [address], [place] [address] Apr, [facility] [address] [id number] [address] [place] [address], [place] [address] Apr, [facility] [address] [id number] [address] [place] [address], [place] [address] March, [facility] [address] [id number] [address] [place] [address], [place] [address] March, [facility] [address] [id number] [address] [place] [address], [place] [address] March, [facility] [address] [id number] [address] [place] [address], [place] [address] March, [facility] [address] [id number] [address] [place] [address], [place] [address] March, [facility] [address] [id number] [address] [place] [address], [place] [address] March, [facility] [address] [id number] [address] [place] [address], [place] [address] March, [facility] [address] [id number] [address] [place] [address], [place] [address] Feb, [facility] [address] [id number] [address] [place] [address], [place] [address] Feb, [address] [id number] Feb, [facility] [address] [id number] [address] [place] [address], [place] [address] Feb, [facility] [address] [id number] [address] [place] [address], [place] [address] Feb, [facility] [address] [id number] [address] [place] [address], [place] [address] Feb, [facility] [address] [id number] [address] [place] [address], [place] [address] Jan, [facility] [address] [id number] [address] [place] [address], [place] [address] Jan, [facility] [address] [id number] [address] [place] [address], [place] [address] Jan, [facility] [address] [id number] [address] [place] [address], [place] [address] Jan, [facility] [address] [id number] [facility] [place] [address] Jan, [facility] [address] [id number] [facility] [place] [address] Jan, [facility] [address] [id number] [facility] [place] [address] Jan, [facility] [address] [id number] [facility] [place] [address] Jan, [facility] [address] [id number] [facility] [place] [address] Jan, [facility] [address] [id number] [address] [place] [address], [place] [address] Jan, [facility] [address] [id number] [address] [place] [address], [place] [address] Jan, [facility] [address] [id number] [address] [place] [address], [place] [address] Jan, [facility] [address] [id number] [address] [place] [address], [place] [address] Jan, [facility] [address] [id number] [address] [place] [address], [place] [address] Jan, [facility] [address] [id number] [address] [place] [address], [place] [address] Jan, [facility] [address] [id number] [address] [place] [address], [place] [address] Jan, [facility] [address] [id number] [address] [place] [address], [place] [address] Jan, [facility] [address] [id number] [address] [place] [address], [place] [address] Jan, [facility] [address] [id number] [address] [place] [address], [place] [address] Dec, [facility] [address] [id number] [address] [place] [address], [place] [address] Dec, [facility] [address] [id number] [address] [place] [address], [place] [address] Dec, [facility] [address] [id number] [address] [place] [address], [place] [address] Dec, [facility] [address] [id number] [address] [place] [address], [place] [address] Dec, [facility] [address] [id number] [address] [place] [address], [place] [address] Dec, [facility] [address] [id number] [address] [place] [address], [place] [address] Dec, [facility] [address] [id number] [address] [place] [address], [place] [address] Dec, [facility] [address] [id number] [address] [place] [address], [place] [address] Dec, [facility] [address] [id number] [address] [place] [address], [place] [address] Dec, [facility] [address] [id number] [address] [place] [address], [place] [address] Dec, [facility] [address] [id number] [address] [place] [address], [place] [address] Dec, [facility] [address] [id number] [address] [place] [address], [place] [address] Nov, [facility] [address] [id number] [address] [place] [address], [place] [address] Nov, [facility] [address] [id number] [address] [place] [address], [place] [address] Nov, [facility] [address] [id number] [address] [place] [address], [place] [address] Nov, [facility] [address] [id number] [address] [place] [address], [place] [address] Nov, [facility] [address] [id number] [address] [place] [address], [place] [address] Nov, [facility] [address] [id number] [address] [place] [address], [place] [address] Nov, [facility] [address] [id number] [address] [place] [address], [place] [address] Oct, [facility] [address] [id number] [address] [place] [address], [place] [address] Oct, [facility] [address] [id number] [address] [place] [address], [place] [address] Sep, [facility] [address] [id number] [address] [place] [address], [place] [address] Sep, [facility] [address] [id number] [address] [place] [address], [place] [address] Sep, [facility] [address] [id number] [address] [place] [address], [place] [address] Sep, [facility] [address] [id number] [address] [place] [address], [place] [address] Aug, [facility] [address] [id number] [address] [place] [address], [place] [address] Aug, [facility] [address] [id number] [address] [place] [address], [place] [address] Aug, [facility] [address] [id number] [address] [place] [address], [place] [address] Jul, [facility] [address] [id number] [address] [place] [address], [place] [address] Jul, [facility] [address] [id number] [address] [place] [address], [place] [address] Jun, [facility] [address] [id number] [address] [place] [address], [place] [address] Jun, [facility] [address] [id number] [address] [place] [address], [place] [address] Jun, [facility] [address] [id number] [address] [place] [address], [place] [address] May, [facility] [address] [id number] [address] [place] [address], [place] [address] May, [facility] [address] [id number] [address] [place] [address], [place] [address] May, [facility] [address] [id number] [address] [place] [address], [place] [address] Apr, [facility] [address] [id number] [address] [place] [address], [place] [address] Apr, [facility] [address] [id number] [address] [place] [address], [place] [address] March, [facility] [address] [id number] [address] [place] [address], [place] [address] Feb, [facility] [address] [id number] [address] [place] [address], [place] [address] Jan, [facility] [address] [id number] [address] [place] [address], [place] [address] Jan, [facility] [address] [id number] [address] [place] [address], [place] [address] Dec, [facility] [address] [id number] [address] [place] [address], [place] [address] Nov, [facility] [address] [id number] [address] [place] [address], [place] [address] Oct, [facility] [address] [id number] [address] [place] [address], [place] [address] Oct, [facility] [address] [id number] [address] [place] [address], [place] [address] Sep, [facility] [address] [id number] [address] [place] [address], [place] [address] Sep, [facility] [address] [id number] [address] [place] [address] 29 Sep, 2012 [facility] [address] [id number] [address] [place] [address], [place] [address] 28 Sep, 2012 [facility] [address] [id number] [address] [place] [address], [place] [address] 13 Sep, 2012 [facility] [address] [id number] [address] [place] [address], [place] [address] 13 Sep, 2012 [facility] [address] [id number] [address] [place] [address], [place] [address] Sep, [facility] [address] [id number] [address] [place] [address], [place] [address] Sep, [facility] [address] [id number] [address] [place] [address], [place] [address] 04 Jul, 2012 [facility] [address] [id number] [address] [place] [address], [place] [address] 30 Jun, 2012 [facility] [address] [id number] [address] [place] [address], [place] [address] Jun, [facility] [address] [id number] [address] [place] [address], [place] [address] Jun, [facility] [address] [id number] [address] [place] [address], [place] [address] Jun, [facility] [address] [id number] [address] [place] [address], [place] [address] 05 May, 2012 [facility] [address] [id number] [address] [place] [address], [place] [address] Apr, [facility] [address] [id number] [address] [place] [address], [place] [address] Jan, [facility] [address] [id number] [address] [place] [address], [place] [address] 14 Dec, 2011 [facility] [address] [id number] [address] [place] [address], [place] [address] 10 Dec, 2011 [facility] [address] [id number] [address] [place] [address], [place] [address] Nov, [facility] [address] [id number] [address] [place] [address], [place] [address] Oct, [facility] [address] [id number] [address] [place] [address], [place] [address] 19 Oct, 2011 [facility] [address] [id number] [address] [place] [address], [place] [address] 18 Aug, 2011 [facility] [address] [id number] [address] [place] [address], [place] [address] 18 Aug, 2011 [facility] [address] [id number] [address] [place] [address], [place] [address] 18 Aug, 2011 [facility] [address] [id number] [address] [place] [address], [place] [address] 14 Aug, 2011 [facility] [address] [id number] [address] [place] [address], [place] [address] 11 Aug, 2011 [facility] [address] [id number] [address] [place] [address], [place] [address] 11 Aug, 2011 [facility] [address] [id number] [address] [place] [address], [place] [address] May, [facility] [address] [id number] [address] [place] [address], [place] [address] Apr, [facility] [address] [id number] [address] [place] [address], [place] [address] 18 Feb, 2011 [facility] [address] [id number] [address] [place] [address], [place] [address] Oct, [facility] [address] [id number] [address] [place] [address], [place] [address] Oct, [facility] [address] [id number] [address] [place] [address], [place] [address] 07 Oct, 2010 [facility] [address] [id number] [address] [place] [address], [place] [address] Sep, [facility] [address] [id number] [address] [place] [address] Aug, [facility] [address] [id number] [address] [place] [address] 16 Jul, 2010 [facility] [address] [address] [id number] [address] [place] [phone] May, [facility] [address] [id number] [address] [place] [id number] Dec, [facility] [address] [id number] [address] [place] [phone] Nov, [facility] [address] [id number] [address] [place] [id number] Oct, [facility] [address] [id number] [address] [place] [phone] Sep, [facility] [address] [id number] [address] [place] [phone] Sep, [facility] [address] [id number] [address] [place] [phone] Jul, [facility] [address] [id number] [address] [place] [phone] Jun, [facility] [address] [id number] [address] [place] [phone] May, IMMUNIZATIONS No Known Immunizations SOCIAL HISTORY [...]
--- OUTSIDE RECORDS SUMMARY | 2020-06-11 20:57 | XMS REPORT ---
Author Author Jd ROBLEDO Organization [facility] Address [address] [place] [address] Care Team Providers Care Monologist Name Role Phone PAULA ROBLEDO Unavailable PROBLEMS Type Condition ICD9-CM Code BUE23-DT Code Onset Dates Condition S tatus SNOMED Code Problem Raynauds disease I73.00 Active 195 070124 Problem Venous insufficiency I87.2 Active 40275441 Problem Neuropathy G62.9 Active 686908396 Problem Hypokalemia E87.6 Active 83116888 Problem Other chronic pain G89.29 Active 8 5019599 Problem Low back pain M54.5 Active 335524 009 Problem Congenital deafness H90.5 Active 71637673 Problem Dysthymia F34.1 Active 72024649 ALLERGIES No Information ENCOUNTERS Encounter Location Date Diagnosis [facility] [address] [id number] [address] [place] [address] Jun, Congenital deafness H90.5 [facility] [address] [facility] [id number] [address] [place] [address] Jun, Other chronic pain G89.29 [facility] [address] [facility] [id number] [address] [place] [address] Jun, Acute kidney injury N17.9 [facility] [address] [facility] [id number] [address] [place] [address] Jan, Abscess of left knee L02.416 [facility] [address] [id number] [address] [place] [address] Jan, Prediabetes R73.03 ; Raynaud s disease I73.00 and Venous insufficiency I87.2 [facility] [address] [facility] [id number] [address] [place] [address] Oct, Neuropathy G62.9 ; Low back pain M54.5 and URI (upper respiratory infection) J06.9 [facility] [address] [facility] [id number] [address] [place] [address] Jul, Raynauds disease I73.00 and Hypokalemia E87.6 [facility] [address] [id number] [address] [place] [address] May, Medicare annual wellness vis it, initial Z00.00 ; Dysthymia F34.1 ; Raynauds disease I73.00 ; Venous insufficiency I87.2 ; Congenital deafness H90.5 and Neuropathy G62.9 [place] [address] [id number] [address] [place] [address] Apr, [place] [address] [id number] [address] [place] [address] Apr, Prediabetes R73.03 ; Raynaud s disease I73.00 ; Venous insufficiency I87.2 ; Neuropathy G62.9 and Dysthymia F34.1 [place] [id number] [place] [address] March, [place] [address] [id number] [address] [place] [address] Sep, Hyperglycemia R73.9 [facility] [address] [id number] [address] [place] [address] Sep, Hyperglycemia R73.9 [facility] [id number] [address] [place] [address] Sep, Raynauds disease I73.00 ; Ve nous insufficiency I87.2 and Encounter for immunization Z23 [facility] [address] [facility] [id number] [address] [place] [address] Jun, [facility] [address] [id number] [address] [place] [address] May, [facility] [id number] [address] [place] [address] 18 May, 2017 Other chronic pain G89.29 [facility] [address] [facility] [id number] [address] [place] [address] 03 May, 2017 Raynauds disease I73.00 ; Ve nous insufficiency I87.2 and Low back pain M54.5 [facility] [id number] [address] [place] [address] 13 Dec, 2016 Raynauds disease I73.00 ; Ve nous insufficiency I87.2 ; Low back pain M54.5 and Other chronic pain G89.29 [facility] [address] [facility] [id number] [address] [place] [address] Nov, [facility] [id number] [address] [place] [address] Nov, Muscle spasm M62.838 [facility] [id number] [address] [place] [address] 16 Nov, 2016 [facility] [address] [id number] [address] [place] [address] Oct, Folliculitis L73.9 and Venou s insufficiency I87.2 [place] [address] [id number] [address] [place] [address] Sep, Dermatitis L30.9 and Raynaud s disease I73.00 [facility] [address] [id number] [address] [place] [address] Sep, Rash and nonspecific skin er uption R21 [facility] [address] [facility] [id number] [address] [place] [address] Aug, Skin infection L08.9 [place] [id number] [address] [place] [address] 18 May, 2016 Infected smith L08.9 [place] [address] [id number] [address] [place] [address] May, Skin infection L08.9 [facility] [address] [id number] [address] [place] [address] Dec, [facility] [address] [facility] [id number] [address] [place] [address] Nov, [facility] [address] [facility] [id number] [address] [place] [address] Nov, [facility] [address] [facility] [id number] [address] [place] [address] Nov, Raynauds disease I73.00 [facility] [address] [facility] [id number] [address] [place] [address] Nov, Raynauds disease I73.00 ; Le g cramps R25.2 ; Venous insufficiency I87.2 and Routine adult health maintenance Z00.00 [facility] [address] [facility] [id number] [address] [place] [address] Jul, Infected sebaceous cyst 706. 2 [facility] [address] [id number] [address] [place] [address] Jun, [facility] [address] [facility] [id number] [address] [place] [address] Jun, [facility] [address] [facility] [id number] [address] [place] [address] Jun, Venous insufficiency 459.81 and Raynauds disease 443.0 [facility] [address] [facility] [id number] [address] [place] [address] Feb, [facility] [address] [facility] [id number] [address] [place] [address] Feb, [facility] [address] [facility] [id number] [address] [place] [address] Jan, [facility] [address] [facility] [id number] [address] [place] [address] Jan, [facility] [address] [id number] [address] [place] [address], [place] [address] Dec, 2014 [facility] [address] [id number] [address] [place] [address], [place] [address] Dec, 2014 [facility] [address] [id number] [address] [place] [address], [place] [address] Dec, 2014 [facility] [address] [id number] [address] [place] [address], [place] [address] Dec, 2014 [facility] [address] [id number] [address] [place] [address], [place] [address] Nov, [facility] [address] [id number] [address] [place] [address], [place] [address] Nov, [facility] [address] [id number] [address] [place] [address], [place] [address] Oct, [facility] [address] [id number] [address] [place] [address], [place] [address] Oct, [facility] [address] [id number] [address] [place] [address], [place] [address] Aug, [facility] [address] [id number] [address] [place] [address], [place] [address] Aug, [facility] [address] [id number] [address] [place] [address], [place] [address] Aug, [facility] [address] [id number] [address] [place] [address], [place] [address] Jul, [facility] [address] [id number] [address] [place] [address], [place] [address] Jul, [facility] [address] [id number] [address] [place] [address], [place] [address] Jul, [facility] [address] [id number] [address] [place] [address], [place] [address] Jul, [facility] [address] [id number] [address] [place] [address], [place] [address] Jun, [facility] [address] [id number] [address] [place] [address], [place] [address] Jun, [facility] [address] [id number] [address] [place] [address], [place] [address] Jun, [facility] [address] [id number] [address] [place] [address], [place] [address] Jun, [facility] [address] [id number] [address] [place] [address], [place] [address] May, [facility] [address] [id number] [address] [place] [address], [place] [address] May, [facility] [address] [id number] [address] [place] [address], [place] [address] May, [facility] [address] [id number] [address] [place] [address], [place] [address] May, [facility] [address] [id number] [address] [place] [address], [place] [address] May, [facility] [address] [id number] [address] [place] [address], [place] [address] May, [facility] [address] [id number] [address] [place] [address], [place] [address] May, [facility] [address] [id number] [address] [place] [address], [place] [address] Apr, [facility] [address] [id number] [address] [place] [address], [place] [address] Apr, [facility] [address] [id number] [address] [place] [address], [place] [address] Apr, [facility] [address] [id number] [address] [place] [address], [place] [address] Apr, [facility] [address] [id number] [address] [place] [address], [place] [address] March, [facility] [address] [id number] [address] [place] [address], [place] [address] March, [facility] [address] [id number] [address] [place] [address], [place] [address] March, [facility] [address] [id number] [address] [place] [address], [place] [address] March, [facility] [address] [id number] [address] [place] [address], [place] [address] March, [facility] [address] [id number] [address] [place] [address], [place] [address] March, [facility] [address] [id number] [address] [place] [address], [place] [address] March, [facility] [address] [id number] [address] [place] [address], [place] [address] Feb, [facility] [address] [id number] [address] [place] [address], [place] [address] Feb, [address] [id number] Feb, [facility] [address] [id number] [address] [place] [address], [place] [address] Feb, [facility] [address] [id number] [address] [place] [address], [place] [address] Feb, [facility] [address] [id number] [address] [place] [address], [place] [address] Feb, [facility] [address] [id number] [address] [place] [address], [place] [address] Jan, [facility] [address] [id number] [address] [place] [address], [place] [address] Jan, [facility] [address] [id number] [address] [place] [address], [place] [address] Jan, [facility] [address] [id number] [address] [place] [address], [place] [address] Jan, [facility] [address] [id number] [facility] [place] [address] Jan, [facility] [address] [id number] [facility] [place] [address] Jan, [facility] [address] [id number] [facility] [place] [address] Jan, [facility] [address] [id number] [facility] [place] [address] Jan, [facility] [address] [id number] [facility] [place] [address] Jan, [facility] [address] [id number] [address] [place] [address], [place] [address] Jan, [facility] [address] [id number] [address] [place] [address], [place] [address] Jan, [facility] [address] [id number] [address] [place] [address], [place] [address] Jan, [facility] [address] [id number] [address] [place] [address], [place] [address] Jan, [facility] [address] [id number] [address] [place] [address], [place] [address] Jan, [facility] [address] [id number] [address] [place] [address], [place] [address] Jan, [facility] [address] [id number] [address] [place] [address], [place] [address] Jan, [facility] [address] [id number] [address] [place] [address], [place] [address] Jan, [facility] [address] [id number] [address] [place] [address], [place] [address] Jan, [facility] [address] [id number] [address] [place] [address], [place] [address] Dec, [facility] [address] [id number] [address] [place] [address], [place] [address] Dec, [facility] [address] [id number] [address] [place] [address], [place] [address] Dec, [facility] [address] [id number] [address] [place] [address], [place] [address] Dec, [facility] [address] [id number] [address] [place] [address], [place] [address] Dec, [facility] [address] [id number] [address] [place] [address], [place] [address] Dec, [facility] [address] [id number] [address] [place] [address], [place] [address] Dec, [facility] [address] [id number] [address] [place] [address], [place] [address] Dec, [facility] [address] [id number] [address] [place] [address], [place] [address] Dec, [facility] [address] [id number] [address] [place] [address], [place] [address] Dec, [facility] [address] [id number] [address] [place] [address], [place] [address] Dec, [facility] [address] [id number] [address] [place] [address], [place] [address] Dec, [facility] [address] [id number] [address] [place] [address], [place] [address] Nov, [facility] [address] [id number] [address] [place] [address], [place] [address] Nov, [facility] [address] [id number] [address] [place] [address], [place] [address] Nov, [facility] [address] [id number] [address] [place] [address], [place] [address] Nov, [facility] [address] [id number] [address] [place] [address], [place] [address] Nov, [facility] [address] [id number] [address] [place] [address], [place] [address] Nov, [facility] [address] [id number] [address] [place] [address], [place] [address] Nov, [facility] [address] [id number] [address] [place] [address], [place] [address] Oct, [facility] [address] [id number] [address] [place] [address], [place] [address] Oct, [facility] [address] [id number] [address] [place] [address], [place] [address] Sep, [facility] [address] [id number] [address] [place] [address], [place] [address] Sep, [facility] [address] [id number] [address] [place] [address], [place] [address] Sep, [facility] [address] [id number] [address] [place] [address], [place] [address] Sep, [facility] [address] [id number] [address] [place] [address], [place] [address] Aug, [facility] [address] [id number] [address] [place] [address], [place] [address] Aug, [facility] [address] [id number] [address] [place] [address], [place] [address] Aug, [facility] [address] [id number] [address] [place] [address], [place] [address] Jul, [facility] [address] [id number] [address] [place] [address], [place] [address] Jul, [facility] [address] [id number] [address] [place] [address], [place] [address] Jun, [facility] [address] [id number] [address] [place] [address], [place] [address] Jun, [facility] [address] [id number] [address] [place] [address], [place] [address] Jun, [facility] [address] [id number] [address] [place] [address], [place] [address] May, [facility] [address] [id number] [address] [place] [address], [place] [address] May, [facility] [address] [id number] [address] [place] [address], [place] [address] May, [facility] [address] [id number] [address] [place] [address], [place] [address] Apr, [facility] [address] [id number] [address] [place] [address], [place] [address] Apr, [facility] [address] [id number] [address] [place] [address], [place] [address] March, [facility] [address] [id number] [address] [place] [address], [place] [address] Feb, [facility] [address] [id number] [address] [place] [address], [place] [address] Jan, [facility] [address] [id number] [address] [place] [address], [place] [address] Jan, [facility] [address] [id number] [address] [place] [address], [place] [address] Dec, [facility] [address] [id number] [address] [place] [address], [place] [address] Nov, [facility] [address] [id number] [address] [place] [address], [place] [address] Oct, [facility] [address] [id number] [address] [place] [address], [place] [address] Oct, [facility] [address] [id number] [address] [place] [address], [place] [address] Sep, [facility] [address] [id number] [address] [place] [address], [place] [address] Sep, [facility] [address] [id number] [address] [place] [id number] 29 Sep, 2012 [facility] [address] [id number] [address] [place] [address], [place] [address] 28 Sep, 2012 [facility] [address] [id number] [address] [place] [address], [place] [address] 13 Sep, 2012 [facility] [address] [id number] [address] [place] [address], [place] [address] 13 Sep, 2012 [facility] [address] [id number] [address] [place] [address], [place] [address] Sep, [facility] [address] [id number] [address] [place] [address], [place] [address] Sep, [facility] [address] [id number] [address] [place] [address], [place] [address] 04 Jul, 2012 [facility] [address] [id number] [address] [place] [address], [place] [address] 30 Jun, 2012 [facility] [address] [id number] [address] [place] [address], [place] [address] Jun, [facility] [address] [id number] [address] [place] [address], [place] [address] Jun, [facility] [address] [id number] [address] [place] [address], [place] [address] Jun, [facility] [address] [id number] [address] [place] [address], [place] [address] 05 May, 2012 [facility] [address] [id number] [address] [place] [address], [place] [address] Apr, [facility] [address] [id number] [address] [place] [address], [place] [address] Jan, [facility] [address] [id number] [address] [place] [address], [place] [address] 14 Dec, 2011 [facility] [address] [id number] [address] [place] [address], [place] [address] 10 Dec, 2011 [facility] [address] [id number] [address] [place] [address], [place] [address] Nov, [facility] [address] [id number] [address] [place] [address], [place] [address] Oct, [facility] [address] [id number] [address] [place] [address], [place] [address] 19 Oct, 2011 [facility] [address] [id number] [address] [place] [address], [place] [address] 18 Aug, 2011 [facility] [address] [id number] [address] [place] [address], [place] [address] 18 Aug, 2011 [facility] [address] [id number] [address] [place] [address], [place] [address] 18 Aug, 2011 [facility] [address] [id number] [address] [place] [address], [place] [address] 14 Aug, 2011 [facility] [address] [id number] [address] [place] [address], [place] [address] 11 Aug, 2011 [facility] [address] [id number] [address] [place] [address], [place] [address] 11 Aug, 2011 [facility] [address] [id number] [address] [place] [address], [place] [address] May, [facility] [address] [id number] [address] [place] [address], [place] [address] Apr, [facility] [address] [id number] [address] [place] [address], [place] [address] 18 Feb, 2011 [facility] [address] [id number] [address] [place] [address], [place] [address] Oct, [facility] [address] [id number] [address] [place] [address], [place] [address] Oct, [facility] [address] [id number] [address] [place] [address], [place] [address] 07 Oct, 2010 [facility] [address] [id number] [address] [place] [address], [place] [address] Sep, [facility] [address] [id number] [address] [place] [address] Aug, [facility] [address] [id number] [address] [place] [address] 16 Jul, 2010 [facility] [address] [id number] [address] [place] [address] May, [facility] [address] [id number] [address] [place] [address] Dec, [facility] [address] [id number] [address] [place] [address] Nov, [facility] [address] [id number] [address] [place] [address] Oct, [facility] [address] [id number] [address] [place] [address] Sep, [facility] [address] [id number] [address] [place] [address] Sep, [facility] [facility] [address] [id number] [address] [place] [id number] Jul, [facility] [address] [id number] [address] [place] [id number] Jun, [facility] [address] [id number] [address] [place] [id number] May, IMMUNIZATIONS No Known Immunizations SOCIAL HISTORY [...]
--- OUTSIDE RECORDS SUMMARY | 2020-06-11 20:57 | XMS REPORT ---
Author Author Jd ROBLEDO Organization [facility] Address [address] [place] [address] Care Team Providers Care Dialysis Rn Name Role Phone PAULA ROBLEDO Unavailable PROBLEMS Type Condition ICD9-CM Code [id number]-DW Code Onset Dates Condition S tatus SNOMED Code Problem Raynauds disease I73.00 Active 195 859592 Problem Venous insufficiency I87.2 Active 71080342 Problem Neuropathy G62.9 Active 610616779 Problem Hypokalemia E87.6 Active 00869833 Problem Other chronic pain G89.29 Active 8 7040102 Problem Low back pain M54.5 Active 700252 009 Problem Congenital deafness H90.5 Active 69543308 Problem Dysthymia F34.1 Active [id number] ALLERGIES No Information ENCOUNTERS Encounter Location Date Diagnosis [facility] [address] [id number] [address] [place] [address] Jun, Congenital deafness H90.5 [facility] [address] [facility] [id number] [address] [place] [address] Jun, Other chronic pain G89.29 [facility] [address] [facility] [id number] [address] [place] [address] Jun, Acute kidney injury N17.9 [facility] [address] [facility] [id number] [address] [place] [address] Jan, Abscess of left knee L02.416 [facility] [address] [id number] [address] [place] [address] Jan, Prediabetes R73.03 ; Raynaud s disease I73.00 and Venous insufficiency I87.2 [facility] [address] [facility] [id number] [address] [place] [address] Oct, Neuropathy G62.9 ; Low back pain M54.5 and URI (upper respiratory infection) J06.9 [facility] [address] [facility] [id number] [address] [place] [address] Jul, Raynauds disease I73.00 and Hypokalemia E87.6 [facility] [address] [id number] [address] [place] [phone] May, Medicare annual wellness vis it, initial Z00.00 ; Dysthymia F34.1 ; Raynauds disease I73.00 ; Venous insufficiency I87.2 ; Congenital deafness H90.5 and Neuropathy G62.9 [place] [id number] [address] [place] [address] Apr, [place] [address] [id number] [address] [place] [address] Apr, Prediabetes R73.03 ; Raynaud s disease I73.00 ; Venous insufficiency I87.2 ; Neuropathy G62.9 and Dysthymia F34.1 [place] [id number] [place] [address] March, [place] [address] [id number] [address] [place] [address] Sep, Hyperglycemia R73.9 [facility] [address] [id number] [address] [place] [address] Sep, Hyperglycemia R73.9 [facility] [id number] [address] [place] [address] Sep, Raynauds disease I73.00 ; Ve nous insufficiency I87.2 and Encounter for immunization Z23 [facility] [address] [facility] [id number] [address] [place] [address] Jun, [facility] [id number] [address] [place] [address] May, [facility] [id number] [address] [place] [address] 18 May, 2017 Other chronic pain G89.29 [facility] [address] [facility] [id number] [address] [place] [address] 03 May, 2017 Raynauds disease I73.00 ; Ve nous insufficiency I87.2 and Low back pain M54.5 [facility] [id number] [address] [place] [id number] 13 Dec, 2016 Raynauds disease I73.00 ; Ve nous insufficiency I87.2 ; Low back pain M54.5 and Other chronic pain G89.29 [facility] [address] [facility] [id number] [address] [place] [address] Nov, [facility] [id number] [address] [place] [address] Nov, Muscle spasm M62.838 [facility] [id number] [address] [place] [id number] 16 Nov, 2016 [facility] [address] [id number] [address] [place] [address] Oct, Folliculitis L73.9 and Venou s insufficiency I87.2 [place] [id number] [address] [place] [address] Sep, Dermatitis L30.9 and Raynaud s disease I73.00 [facility] [address] [id number] [address] [place] [phone] Sep, Rash and nonspecific skin er uption R21 [facility] [address] [facility] [id number] [address] [place] [address] Aug, Skin infection L08.9 [place] [id number] [address] [place] [address] 18 May, 2016 Infected smith L08.9 [place] [id number] [address] [place] [address] May, Skin infection L08.9 [facility] [address] [id number] [address] [place] [address] Dec, [facility] [address] [facility] [id number] [address] [place] [id number] Nov, [facility] [address] [facility] [id number] [address] [place] [address] Nov, [facility] [address] [facility] [id number] [address] [place] [address] Nov, Raynauds disease I73.00 [facility] [address] [facility] [id number] [address] [place] [address] Nov, Raynauds disease I73.00 ; Le g cramps R25.2 ; Venous insufficiency I87.2 and Routine adult health maintenance Z00.00 [facility] [address] [facility] [id number] [address] [place] [address] Jul, Infected sebaceous cyst 706. 2 [facility] [address] [id number] [address] [place] [id number] Jun, [facility] [address] [facility] [id number] [address] [place] [address] Jun, [facility] [address] [facility] [id number] [address] [place] [address] Jun, Venous insufficiency 459.81 and Raynauds disease 443.0 [facility] [address] [facility] [id number] [address] [place] [address] Feb, [facility] [address] [facility] [id number] [address] [place] [phone] Feb, [facility] [address] [facility] [id number] [address] [place] [phone] Jan, [facility] [address] [facility] [id number] [address] [place] [id number] Jan, [facility] [address] [id number] [address] [place] [address], [place] [address] Dec, 2014 [facility] [address] [id number] [address] [place] [address], [place] [address] Dec, 2014 [facility] [address] [id number] [address] [place] [address], [place] [address] Dec, 2014 [facility] [address] [id number] [address] [place] [address], [place] [address] Dec, 2014 [facility] [address] [id number] [address] [place] [address], [place] [address] Nov, [facility] [address] [id number] [address] [place] [address], [place] [address] Nov, [facility] [address] [id number] [address] [place] [address], [place] [address] Oct, [facility] [address] [id number] [address] [place] [address], [place] [address] Oct, [facility] [address] [id number] [address] [place] [address], [place] [address] Aug, [facility] [address] [id number] [address] [place] [address], [place] [address] Aug, [facility] [address] [id number] [address] [place] [address], [place] [address] Aug, [facility] [address] [id number] [address] [place] [address], [place] [address] Jul, [facility] [address] [id number] [address] [place] [address], [place] [address] Jul, [facility] [address] [id number] [address] [place] [address], [place] [address] Jul, [facility] [address] [id number] [address] [place] [address], [place] [address] Jul, [facility] [address] [id number] [address] [place] [address], [place] [address] Jun, [facility] [address] [id number] [address] [place] [address], [place] [address] Jun, [facility] [address] [id number] [address] [place] [address], [place] [address] Jun, [facility] [address] [id number] [address] [place] [address], [place] [address] Jun, [facility] [address] [id number] [address] [place] [address], [place] [address] May, [facility] [address] [id number] [address] [place] [address], [place] [address] May, [facility] [address] [id number] [address] [place] [address], [place] [address] May, [facility] [address] [id number] [address] [place] [address], [place] [address] May, [facility] [address] [id number] [address] [place] [address], [place] [address] May, [facility] [address] [id number] [address] [place] [address], [place] [address] May, [facility] [address] [id number] [address] [place] [address], [place] [address] May, [facility] [address] [id number] [address] [place] [address], [place] [address] Apr, [facility] [address] [id number] [address] [place] [address], [place] [address] Apr, [facility] [address] [id number] [address] [place] [address], [place] [address] Apr, [facility] [address] [id number] [address] [place] [address], [place] [address] Apr, [facility] [address] [id number] [address] [place] [address], [place] [address] March, [facility] [address] [id number] [address] [place] [address], [place] [address] March, [facility] [address] [id number] [address] [place] [address], [place] [address] March, [facility] [address] [id number] [address] [place] [address], [place] [address] March, [facility] [address] [id number] [address] [place] [address], [place] [address] March, [facility] [address] [id number] [address] [place] [address], [place] [address] March, [facility] [address] [id number] [address] [place] [address], [place] [address] March, [facility] [address] [id number] [address] [place] [address], [place] [address] Feb, [facility] [address] [id number] [address] [place] [address], [place] [address] Feb, [address] [id number] Feb, [facility] [address] [id number] [address] [place] [address], [place] [address] Feb, [facility] [address] [id number] [address] [place] [address], [place] [address] Feb, [facility] [address] [id number] [address] [place] [address], [place] [address] Feb, [facility] [address] [id number] [address] [place] [address], [place] [address] Jan, [facility] [address] [id number] [address] [place] [address], [place] [address] Jan, [facility] [address] [id number] [address] [place] [address], [place] [address] Jan, [facility] [address] [id number] [address] [place] [address], [place] [address] Jan, [facility] [address] [id number] [facility] [place] [address] Jan, [facility] [address] [id number] [facility] [place] [address] Jan, [facility] [address] [id number] [facility] [place] [address] Jan, [facility] [address] [id number] [facility] [place] [address] Jan, [facility] [address] [id number] [facility] [place] [address] Jan, [facility] [address] [id number] [address] [place] [address], [place] [address] Jan, [facility] [address] [id number] [address] [place] [address], [place] [address] Jan, [facility] [address] [id number] [address] [place] [address], [place] [address] Jan, [facility] [address] [id number] [address] [place] [address], [place] [address] Jan, [facility] [address] [id number] [address] [place] [address], [place] [address] Jan, [facility] [address] [id number] [address] [place] [address], [place] [address] Jan, [facility] [address] [id number] [address] [place] [address], [place] [address] Jan, [facility] [address] [id number] [address] [place] [address], [place] [address] Jan, [facility] [address] [id number] [address] [place] [address], [place] [address] Jan, [facility] [address] [id number] [address] [place] [address], [place] [address] Dec, [facility] [address] [id number] [address] [place] [address], [place] [address] Dec, [facility] [address] [id number] [address] [place] [address], [place] [address] Dec, [facility] [address] [id number] [address] [place] [address], [place] [address] Dec, [facility] [address] [id number] [address] [place] [address], [place] [address] Dec, [facility] [address] [id number] [address] [place] [address], [place] [address] Dec, [facility] [address] [id number] [address] [place] [address], [place] [address] Dec, [facility] [address] [id number] [address] [place] [address], [place] [address] Dec, [facility] [address] [id number] [address] [place] [address], [place] [address] Dec, [facility] [address] [id number] [address] [place] [address], [place] [address] Dec, [facility] [address] [id number] [address] [place] [address], [place] [address] Dec, [facility] [address] [id number] [address] [place] [address], [place] [address] Dec, [facility] [address] [id number] [address] [place] [address], [place] [address] Nov, [facility] [address] [id number] [address] [place] [address], [place] [address] Nov, [facility] [address] [id number] [address] [place] [address], [place] [address] Nov, [facility] [address] [id number] [address] [place] [address], [place] [address] Nov, [facility] [address] [id number] [address] [place] [address], [place] [address] Nov, [facility] [address] [id number] [address] [place] [address], [place] [address] Nov, [facility] [address] [id number] [address] [place] [address], [place] [address] Nov, [facility] [address] [id number] [address] [place] [address], [place] [address] Oct, [facility] [address] [id number] [address] [place] [address], [place] [address] Oct, [facility] [address] [id number] [address] [place] [address], [place] [address] Sep, [facility] [address] [id number] [address] [place] [address], [place] [address] Sep, [facility] [address] [id number] [address] [place] [address], [place] [address] Sep, [facility] [address] [id number] [address] [place] [address], [place] [address] Sep, [facility] [address] [id number] [address] [place] [address], [place] [address] Aug, [facility] [address] [id number] [address] [place] [address], [place] [address] Aug, [facility] [address] [id number] [address] [place] [address], [place] [address] Aug, [facility] [address] [id number] [address] [place] [address], [place] [address] Jul, [facility] [address] [id number] [address] [place] [address], [place] [address] Jul, [facility] [address] [id number] [address] [place] [address], [place] [address] Jun, [facility] [address] [id number] [address] [place] [address], [place] [address] Jun, [facility] [address] [id number] [address] [place] [address], [place] [address] Jun, [facility] [address] [id number] [address] [place] [address], [place] [address] May, [facility] [address] [id number] [address] [place] [address], [place] [address] May, [facility] [address] [id number] [address] [place] [address], [place] [address] May, [facility] [address] [id number] [address] [place] [address], [place] [address] Apr, [facility] [address] [id number] [address] [place] [address], [place] [address] Apr, [facility] [address] [id number] [address] [place] [address], [place] [address] March, [facility] [address] [id number] [address] [place] [address], [place] [address] Feb, [facility] [address] [id number] [address] [place] [address], [place] [address] Jan, [facility] [address] [id number] [address] [place] [address], [place] [address] Jan, [facility] [address] [id number] [address] [place] [address], [place] [address] Dec, [facility] [address] [id number] [address] [place] [address], [place] [address] Nov, [facility] [address] [id number] [address] [place] [address], [place] [address] Oct, [facility] [address] [id number] [address] [place] [address], [place] [address] Oct, [facility] [address] [id number] [address] [place] [address], [place] [address] Sep, [facility] [address] [id number] [address] [place] [address], [place] [address] Sep, [facility] [address] [id number] [address] [place] [id number] 29 Sep, 2012 [facility] [address] [id number] [address] [place] [address], [place] [address] 28 Sep, 2012 [facility] [address] [id number] [address] [place] [address], [place] [address] 13 Sep, 2012 [facility] [address] [id number] [address] [place] [address], [place] [address] 13 Sep, 2012 [facility] [address] [id number] [address] [place] [address], [place] [address] Sep, [facility] [address] [id number] [address] [place] [address], [place] [address] Sep, [facility] [address] [id number] [address] [place] [address], [place] [address] 04 Jul, 2012 [facility] [address] [id number] [address] [place] [address], [place] [address] 30 Jun, 2012 [facility] [address] [id number] [address] [place] [address], [place] [address] Jun, [facility] [address] [id number] [address] [place] [address], [place] [address] Jun, [facility] [address] [id number] [address] [place] [address], [place] [address] Jun, [facility] [address] [id number] [address] [place] [address], [place] [address] 05 May, 2012 [facility] [address] [id number] [address] [place] [address], [place] [address] Apr, [facility] [address] [id number] [address] [place] [address], [place] [address] Jan, [facility] [address] [id number] [address] [place] [address], [place] [address] 14 Dec, 2011 [facility] [address] [id number] [address] [place] [address], [place] [address] 10 Dec, 2011 [facility] [address] [id number] [address] [place] [address], [place] [address] Nov, [facility] [address] [id number] [address] [place] [address], [place] [address] Oct, [facility] [address] [id number] [address] [place] [address], [place] [address] 19 Oct, 2011 [facility] [address] [id number] [address] [place] [address], [place] [address] 18 Aug, 2011 [facility] [address] [id number] [address] [place] [address], [place] [address] 18 Aug, 2011 [facility] [address] [id number] [address] [place] [address], [place] [address] 18 Aug, 2011 [facility] [address] [id number] [address] [place] [address], [place] [address] 14 Aug, 2011 [facility] [address] [id number] [address] [place] [address], [place] [address] 11 Aug, 2011 [facility] [address] [id number] [address] [place] [address], [place] [address] 11 Aug, 2011 [facility] [address] [id number] [address] [place] [address], [place] [address] May, [facility] [address] [id number] [address] [place] [address], [place] [address] Apr, [facility] [address] [id number] [address] [place] [address], [place] [address] 18 Feb, 2011 [facility] [address] [id number] [address] [place] [address], [place] [address] Oct, [facility] [address] [id number] [address] [place] [address], [place] [address] Oct, [facility] [address] [address] [id number] [address] [place] [address], [place] [address] 07 Oct, 2010 [facility] [address] [id number] [address] [place] [address], [place] [address] Sep, [facility] [address] [id number] [address] [place] [address] Aug, [facility] [address] [id number] [address] [place] [address] 16 Jul, 2010 [facility] [address] [id number] [address] [place] [address] May, [facility] [address] [id number] [address] [place] [address] Dec, [facility] [address] [id number] [address] [place] [address] Nov, [facility] [address] [id number] [address] [place] [address] Oct, [facility] [address] [id number] [address] [place] [address] Sep, [facility] [address] [id number] [address] [place] [address] Sep, [facility] [address] [id number] [address] [place] [address] Jul, [facility] [address] [id number] [address] [place] [address] Jun, [facility] [address] [id number] [address] [place] [address] May, IMMUNIZATIONS No Known Immunizations SOCIAL HISTORY [...]
--- OUTSIDE RECORDS SUMMARY | 2020-06-11 20:57 | XMS REPORT ---
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 Name Role Phone DUC ANDRE Unavailable PROBLEMS Type Condition ICD9-CM Code LIR90-FP Code Onset Dates Condition S tatus SNOMED Code Problem Raynauds disease I73.00 Active 195 476692 Problem Venous insufficiency I87.2 Active 52091249 Problem Neuropathy G62.9 Active [id number] Problem Hypokalemia E87.6 Active 38736590 Problem Other chronic pain G89.29 Active 8 1410105 Problem Low back pain M54.5 Active 196715 009 Problem Congenital deafness H90.5 Active 07941588 Problem Dysthymia F34.1 Active 11056436 ALLERGIES No Information ENCOUNTERS Encounter Location Date Diagnosis [facility] [address] [address] Nov, [facility] [address] [place] [address] Jun, Congenital deafness H90.5 [facility] [address] [address] Jun, Other chronic pain G89.29 [facility] [address] [address] Jun, Acute kidney injury N17.9 [facility] [address] [facility] [id number] [address] [address] Jan, Abscess of left knee L02.416 [facility] [id number] [place] [address] Jan, Prediabetes R73.03 ; Raynauds disease I7 3.00 and Venous insufficiency I87.2 [facility] [address] [address] Oct, Neuropathy G62.9 ; Low back pain M54.5 a nd URI (upper respiratory infection) J06.9 [place] [address] [address] Jul, Raynauds disease I73.00 and Hypokalemia E87.6 [place] [address] [address] May, Medicare annual wellness visit, initial Z00.00 ; Dysthymia F34.1 ; Raynauds disease I73.00 ; Venous insufficiency I87.2 ; Congenital deafness H90.5 and Neuropathy G62.9 [place] [address] [address] Apr, [place] [address] [address] Apr, Prediabetes R73.03 ; Raynauds disease I7 3.00 ; Venous insufficiency I87.2 ; Neuropathy G62.9 and Dysthymia F34.1 [place] [address] [address] March, [place] [address] [address] Sep, Hyperglycemia R73.9 [place] [address] [address] Sep, Hyperglycemia R73.9 [place] [address] [address] Sep, Raynauds disease I73.00 ; Venous insuffi ciency I87.2 and Encounter for immunization Z23 [place] [address] [address] Jun, [place] [address] [address] May, [place] [address] [address] 18 May, 2017 Other chronic pain G89.29 [facility] [address] [address] 03 May, 2017 Raynauds disease I73.00 ; Venous insuffi ciency I87.2 and Low back pain M54.5 [place] [address] [address] 13 Dec, 2016 Raynauds disease I73.00 ; Venous insuffi ciency I87.2 ; Low back pain M54.5 and Other chronic pain G89.29 [place] [address] [address] Nov, [place] [address] [address] Nov, Muscle spasm M62.838 [facility] [address] [id number] [address] [address] Nov, [place] [address] [address] Oct, Folliculitis L73.9 and Venous insufficie ncy I87.2 [place] [address] [address] Sep, Dermatitis L30.9 and Raynauds disease I7 3.00 [facility] [address] [id number] [place] [address] Sep, Rash and nonspecific skin er uption R21 [place] [address] [address] Aug, Skin infection L08.9 [place] [address] [address] 18 May, 2016 Infected smith L08.9 [place] [address] [address] May, Skin infection L08.9 [place] [id number] [place] [address] Dec, [facility] [address] [address] Nov, [facility] [address] [address] Nov, [facility] [address] [address] Nov, Raynauds disease I73.00 [facility] [address] [address] Nov, Raynauds disease I73.00 ; Leg cramps R25 .2 ; Venous insufficiency I87.2 and Routine adult health maintenance Z00.00 [facility] [address] [address] Jul, Infected sebaceous cyst 706.2 [facility] [address] [address] Jun, [facility] [address] [address] Jun, [facility] [address] [address] Jun, Venous insufficiency 459.81 and Raynauds disease 443.0 [facility] [address] [address] Feb, [facility] [address] [address] Feb, [facility] [address] [address] Jan, [facility] [address] [address] Jan, [facility] [address] [address] Dec, [facility] [address] [address] Dec, 2014 [facility] [place] [facility] [address] [facility] [id number] [place] [address] Dec, [facility] [place] [facility] [address] [id number] [place] [address] Dec, [facility] [place] [facility] [address] [id number] [place] [address] Nov, [facility] [place] [facility] [address] [id number] [place] [address] Nov, [facility] [place] [facility] [address] [id number] [place] [address] Oct, [facility] [place] [facility] [address] [id number] [place] [address] Oct, [facility] [place] [facility] [address] [id number] [place] [address] Aug, [facility] [place] [facility] [address] [id number] [place] [address] Aug, [facility] [place] [facility] [address] [id number] [place] [address] Aug, [facility] [place] [facility] [address] [id number] [place] [address] Jul, [facility] [place] [facility] [address] [id number] [place] [address] Jul, [facility] [place] [facility] [address] [id number] [place] [address] Jul, [facility] [place] [facility] [address] [id number] [place] [address] Jul, [facility] [place] [facility] [address] [id number] [place] [address] Jun, [facility] [place] [facility] [address] [id number] [place] [address] Jun, [facility] [place] [facility] [address] [id number] [place] [address] Jun, [facility] [place] [facility] [address] [facility] [id number] [place] [address] Jun, [facility] [place] [facility] [address] [facility] [id number] [place] [address] May, [facility] [place] [facility] [address] [facility] [id number] [place] [address] May, [facility] [place] [facility] [address] [id number] [place] [address] May, [facility] [place] [facility] [address] [facility] [id number] [place] [address] May, [facility] [place] [facility] [address] [id number] [place] [address] May, [facility] [place] [facility] [address] [id number] [place] [address] May, [facility] [place] [facility] [address] [id number] [place] [address] May, [facility] [place] [facility] [address] [id number] [place] [address] Apr, [facility] [place] [facility] [address] [id number] [place] [address] Apr, [facility] [place] [facility] [address] [id number] [place] [address] Apr, [facility] [place] [facility] [address] [id number] [place] [address] Apr, [facility] [place] [facility] [address] [id number] [place] [address] March, [facility] [place] [facility] [address] [facility] [id number] [place] [address] March, [facility] [place] [facility] [address] [id number] [place] [address] March, [facility] [place] [facility] [address] [id number] [place] [address] March, [facility] [place] [facility] [address] [id number] [place] [address] March, [facility] [address] [id number] [place] [address] March, [facility] [address] [id number] [place] [address] March, [facility] [address] [id number] [place] [address] Feb, [facility] [address] [id number] [place] [address] Feb, [facility] [address] [facility] [id number] Feb, [facility] [address] [id number] [place] [address] Feb, [facility] [address] [id number] [place] [address] Feb, [facility] [address] [id number] [place] [address] Feb, [facility] [place] [facility] [address] [id number] [place] [address] Jan, [facility] [place] [facility] [address] [id number] [place] [address] Jan, [facility] [place] [facility] [address] [id number] [place] [address] Jan, [facility] [address] [id number] [place] [address] Jan, [facility] [place] [facility] [address] [id number] [place] [address] Jan, [facility] [place] [facility] [address] [id number] [place] [address] Jan, [facility] [place] [facility] [address] [id number] [place] [address] Jan, [facility] [place] [facility] [address] [id number] [place] [address] Jan, [facility] [place] [facility] [address] [id number] [place] [address] Jan, [facility] [place] [facility] [address] [facility] [id number] [facility] [address] Jan, [facility] [place] [facility] [address] [facility] [id number] [facility] [address] Jan, [facility] [place] [facility] [address] [id number] [facility] [address] Jan, [facility] [place] [facility] [address] [id number] [place] [address] Jan, [facility] [place] [facility] [address] [facility] [id number] [facility] [address] Jan, [facility] [place] [facility] [address] [id number] [place] [address] Jan, [facility] [place] [facility] [address] [id number] [place] [address] Jan, [facility] [place] [facility] [address] [id number] [facility] [place] [address] Jan, [facility] [place] [facility] [address] [id number] [facility] [place] [address] Jan, [facility] [place] [facility] [address] [id number] [facility] [place] [address] Dec, [facility] [place] [facility] [address] [id number] [place] [address] Dec, [facility] [place] [facility] [address] [id number] [facility] [place] [address] Dec, [facility] [place] [facility] [address] [facility] [id number] [facility] [place] [address] Dec, [facility] [place] [facility] [address] [id number] [place] [address] 14 Dec, 2013 [facility] [place] [facility] [address] [id number] [place] [address] Dec, [facility] [place] [facility] [address] [id number] [place] [address] 07 Dec, 2013 [facility] [place] [facility] [address] [id number] [place] [address] Dec, [facility] [place] [facility] [address] [id number] [place] [address] Dec, [facility] [place] [facility] [address] [id number] [place] [address] Dec, [facility] [place] [facility] [address] [id number] [place] [address] Dec, [facility] [place] [facility] [address] [id number] [place] [address] Dec, [facility] [place] [facility] [address] [id number] [place] [address] Nov, [facility] [place] [facility] [address] [id number] [place] [address] Nov, [facility] [place] [facility] [address] [id number] [place] [address] Nov, [facility] [place] [facility] [address] [id number] [place] [address] Nov, [facility] [place] [facility] [address] [id number] [place] [address] Nov, [facility] [place] [facility] [address] [id number] [place] [address] Nov, [facility] [place] [facility] [address] [id number] [place] [address] Nov, [facility] [place] [facility] [address] [id number] [place] [address] Oct, [facility] [place] [facility] [address] [id number] [place] [address] Oct, [facility] [place] [facility] [address] [id number] [place] [address] Sep, [facility] [place] [facility] [address] [id number] [place] [address] Sep, [facility] [place] [facility] [address] [id number] [place] [address] Sep, [facility] [place] [facility] [address] [id number] [place] [address] Sep, [facility] [place] [facility] [address] [id number] [place] [address] Aug, [facility] [place] [facility] [address] [id number] [place] [address] Aug, [facility] [place] [facility] [address] [id number] [place] [address] Aug, [facility] [place] [facility] [address] [id number] [place] [address] Jul, [facility] [place] [facility] [address] [id number] [place] [address] Jul, [facility] [place] [facility] [address] [id number] [place] [address] Jun, [facility] [place] [facility] [address] [id number] [place] [address] Jun, [facility] [place] [facility] [address] [id number] [place] [address] Jun, [facility] [place] [facility] [address] [id number] [place] [address] May, [facility] [place] [facility] [address] [id number] [place] [address] May, [facility] [place] [facility] [address] [id number] [place] [address] May, [facility] [place] [facility] [address] [id number] [place] [address] Apr, [facility] [place] [facility] [address] [id number] [place] [address] Apr, [facility] [place] [facility] [address] [id number] [place] [address] March, [facility] [place] [facility] [address] [id number] [place] [address] Feb, [facility] [place] [facility] [address] [id number] [place] [address] Jan, [facility] [place] [facility] [address] [id number] [place] [address] Jan, [facility] [place] [facility] [address] [id number] [place] [address] Dec, [facility] [place] [facility] [address] [id number] [place] [address] Nov, [facility] [place] [facility] [address] [id number] [place] [address] Oct, [facility] [place] [facility] [address] [id number] [place] [address] Oct, [facility] [place] [facility] [address] [id number] [place] [address] Sep, [facility] [place] [facility] [address] [id number] [place] [address] Sep, [facility] [place] [facility] [address] [id number] [place] [address] Sep, [facility] [place] [facility] [address] [id number] [place] [address] Sep, [facility] [place] [facility] [address] [id number] [place] [address] Sep, [facility] [place] [facility] [address] [id number] [place] [address] Sep, [facility] [place] [facility] [address] [id number] [place] [address] Sep, [facility] [place] [facility] [address] [id number] [place] [address] Sep, [facility] [place] [facility] [address] [id number] [place] [address] Jul, [facility] [place] [facility] [address] [id number] [place] [address] Jun, [facility] [place] [facility] [address] [id number] [place] [address] Jun, [facility] [place] [facility] [address] [id number] [place] [address] Jun, [facility] [place] [facility] [address] [id number] [place] [address] Jun, [facility] [address] [id number] [place] [address] May, [facility] [address] [id number] [place] [address] Apr, [facility] [address] [facility] [id number] [place] [address] Jan, [facility] [address] [id number] [place] [address] Dec, [facility] [address] [id number] [place] [address] Dec, [facility] [address] [id number] [place] [address] Nov, [facility] [address] [id number] [place] [address] Oct, [facility] [address] [id number] [place] [address] Oct, [facility] [address] [id number] [place] [address] 18 Aug, 2011 [facility] [address] [id number] [place] [address] 18 Aug, 2011 [facility] [address] [id number] [place] [address] 18 Aug, 2011 [facility] [address] [id number] [place] [address] 14 Aug, 2011 [facility] [address] [id number] [place] [address] Aug, [facility] [address] [id number] [place] [address] Aug, [facility] [address] [id number] [place] [address] May, [facility] [address] [id number] [place] [address] Apr, [facility] [address] [id number] [place] [address] 18 Feb, 2011 [facility] [address] [id number] [place] [address] Oct, [facility] [address] [id number] [place] [address] Oct, [facility] [address] [id number] [place] [address] Oct, [facility] [address] [id number] [place] [address] Sep, [facility] [address] [id number] [place] [address] Aug, [facility] [address] [id number] [place] [address] 16 Jul, 2010 [facility] [address] [id number] [place] [address] May, [facility] [id number] [place] [address] Dec, [facility] [address] [id number] [place] [address] Nov, [facility] [address] [id number] [place] [address] 14 Oct, 2009 [facility] [address] [id number] [place] [address] 27 Sep, 2009 [facility] [id number] [place] [address] 05 Sep, 2009 [facility] [address] [id number] [place] [address] 14 Jul, 2009 [facility] [address] [id number] [place] [address] 17 Jun, 2009 [facility] [address] [facility] [id number] [place] [address] 13 May, 2009 IMMUNIZATIONS No Known Immunizations [...]
--- OUTSIDE RECORDS SUMMARY | 2020-06-11 20:58 | XMS REPORT ---
Author Author Jd ROBLEDO Organization [facility] Address [address] [place] [address] Care Team Providers Care Sill Worker Name Role Phone PALUA ROBLEDO Unavailable PROBLEMS Type Condition ICD9-CM Code QAP37-DS Code Onset Dates Condition S tatus SNOMED Code Problem Raynauds disease I73.00 Active 195 984845 Problem Venous insufficiency I87.2 Active 49088619 Problem Neuropathy G62.9 Active 196368769 Problem Hypokalemia E87.6 Active 63276034 Problem Other chronic pain G89.29 Active 8 1165437 Problem Low back pain M54.5 Active 982146 009 Problem Congenital deafness H90.5 Active 00677346 Problem Dysthymia F34.1 Active [id number] ALLERGIES No Information ENCOUNTERS Encounter Location Date Diagnosis [facility] [address] [id number] [address] [place] [id number] Jun, [facility] [address] [facility] [id number] [address] [place] [address] Jun, [facility] [address] [id number] [address] [place] [address] Jun, Acute kidney injury N17.9 [facility] [address] [facility] [id number] [address] [place] [address] Jan, Abscess of left knee L02.416 [facility] [address] [facility] [id number] [address] [place] [address] Jan, Prediabetes R73.03 ; Raynaud s disease I73.00 and Venous insufficiency I87.2 [facility] [address] [facility] [id number] [address] [place] [address] Oct, Neuropathy G62.9 ; Low back pain M54.5 and URI (upper respiratory infection) J06.9 [facility] [address] [facility] [id number] [address] [place] [address] Jul, Raynauds disease I73.00 and Hypokalemia E87.6 [facility] [address] [facility] [id number] [address] [place] [address] May, Medicare annual wellness vis it, initial Z00.00 ; Dysthymia F34.1 ; Raynauds disease I73.00 ; Venous insufficiency I87.2 ; Congenital deafness H90.5 and Neuropathy G62.9 [facility] [address] [facility] [id number] [address] [place] [address] Apr, [place] [address] [facility] [id number] [address] [place] [address] Apr, Prediabetes R73.03 ; Raynaud s disease I73.00 ; Venous insufficiency I87.2 ; Neuropathy G62.9 and Dysthymia F34.1 [facility] [address] [facility] [id number] [address] [place] [address] March, [facility] [address] [facility] [id number] [address] [place] [address] Sep, Hyperglycemia R73.9 [facility] [address] [facility] [id number] [address] [place] [address] Sep, Hyperglycemia R73.9 [facility] [address] [facility] [id number] [address] [place] [address] Sep, Raynauds disease I73.00 ; Ve nous insufficiency I87.2 and Encounter for immunization Z23 [facility] [address] [facility] [id number] [address] [place] [address] Jun, [facility] [address] [facility] [id number] [address] [place] [address] May, [facility] [address] [id number] [address] [place] [address] May, Other chronic pain G89.29 [facility] [address] [facility] [id number] [address] [place] [phone] 03 May, 2017 Raynauds disease I73.00 ; Ve nous insufficiency I87.2 and Low back pain M54.5 [facility] [address] [facility] [id number] [address] [place] [id number] 13 Dec, 2016 Raynauds disease I73.00 ; Ve nous insufficiency I87.2 ; Low back pain M54.5 and Other chronic pain G89.29 [facility] [address] [facility] [id number] [address] [place] [address] Nov, [facility] [address] [facility] [id number] [address] [place] [address] Nov, Muscle spasm M62.838 [facility] [address] [id number] [address] [place] [address] Nov, [facility] [address] [id number] [address] [place] [phone] Oct, Folliculitis L73.9 and Venou s insufficiency I87.2 [place] [address] [facility] [id number] [address] [place] [address] Sep, Dermatitis L30.9 and Raynaud s disease I73.00 [facility] [address] [facility] [id number] [address] [place] [phone] Sep, Rash and nonspecific skin er uption R21 [facility] [address] [facility] [id number] [address] [place] [phone] Aug, Skin infection L08.9 [place] [address] [id number] [address] [place] [phone] 18 May, 2016 Infected smith L08.9 [facility] [address] [id number] [address] [place] [phone] May, Skin infection L08.9 [place] [address] [id number] [address] [place] [phone] Dec, [facility] [address] [facility] [id number] [address] [place] [phone] Nov, [facility] [address] [facility] [id number] [address] [place] [address] Nov, [facility] [address] [facility] [id number] [address] [place] [address] Nov, Raynauds disease I73.00 [facility] [address] [facility] [id number] [address] [place] [address] Nov, Raynauds disease I73.00 ; Le g cramps R25.2 ; Venous insufficiency I87.2 and Routine adult health maintenance Z00.00 [facility] [address] [facility] [id number] [address] [place] [address] Jul, Infected sebaceous cyst 706. 2 [facility] [address] [facility] [id number] [address] [place] [phone] Jun, [facility] [address] [facility] [id number] [address] [place] [address] Jun, [facility] [address] [id number] [address] [place] [phone] Jun, Venous insufficiency 459.81 and Raynauds disease 443.0 [facility] [address] [facility] [id number] [address] [place] [phone] Feb, [facility] [address] [facility] [id number] [address] [place] [phone] Feb, [facility] [address] [facility] [id number] [address] [place] [phone] Jan, [facility] [address] [facility] [id number] [address] [place] [phone] Jan, [facility] [address] [facility] [id number] [address] [place] [phone] Dec, 2014 [facility] [address] [id number] [address] [place] [address], [place] [address] Dec, [facility] [address] [id number] [address] [place] [address], [place] [address] Dec, [facility] [address] [id number] [address] [place] [address], [place] [address] Dec, [facility] [address] [id number] [address] [place] [address], [place] [address] Nov, [facility] [address] [id number] [address] [place] [address], [place] [address] Nov, [facility] [address] [id number] [address] [place] [address], [place] [address] Oct, [facility] [address] [id number] [address] [place] [address], [place] [address] Oct, [facility] [address] [id number] [address] [place] [address], [place] [address] Aug, [facility] [address] [id number] [address] [place] [address], [place] [address] Aug, [facility] [address] [id number] [address] [place] [address], [place] [address] Aug, [facility] [address] [id number] [address] [place] [address], [place] [address] Jul, [facility] [address] [id number] [address] [place] [address], [place] [address] Jul, [facility] [address] [id number] [address] [place] [address], [place] [address] Jul, [facility] [address] [id number] [address] [place] [address], [place] [address] Jul, [facility] [address] [id number] [address] [place] [address], [place] [address] Jun, [facility] [address] [id number] [facility] [place] [address] Jun, [facility] [address] [id number] [facility] [place] [address] Jun, [facility] [address] [id number] [facility] [place] [address] Jun, [facility] [address] [id number] [address] [place] [address], [place] [address] May, [facility] [address] [id number] [address] [place] [address], [place] [address] May, [facility] [address] [id number] [address] [place] [address], [place] [address] May, [facility] [address] [id number] [address] [place] [address], [place] [address] May, [facility] [address] [id number] [address] [place] [address], [place] [address] May, [facility] [address] [id number] [address] [place] [address], [place] [address] May, [facility] [address] [id number] [address] [place] [address], [place] [address] May, [facility] [address] [id number] [address] [place] [address], [place] [address] Apr, [facility] [address] [id number] [address] [place] [address], [place] [address] Apr, [facility] [address] [id number] [address] [place] [address], [place] [address] Apr, [facility] [address] [id number] [address] [place] [address], [place] [address] Apr, [facility] [address] [id number] [address] [place] [address], [place] [address] March, [facility] [address] [id number] [address] [place] [address], [place] [address] March, [facility] [address] [id number] [address] [place] [address], [place] [address] March, [facility] [address] [id number] [address] [place] [address], [place] [address] March, [facility] [address] [id number] [address] [place] [address], [place] [address] March, [facility] [address] [id number] [address] [place] [address], [place] [address] March, [facility] [address] [id number] [address] [place] [address], [place] [address] March, [facility] [address] [id number] [address] [place] [address], [place] [address] Feb, [facility] [address] [id number] [address] [place] [address], [place] [address] Feb, [address] [id number] Feb, [facility] [address] [id number] [address] [place] [address], [place] [address] Feb, [facility] [address] [id number] [address] [place] [address], [place] [address] Feb, [facility] [address] [id number] [address] [place] [address], [place] [address] Feb, [facility] [address] [id number] [address] [place] [address], [place] [address] Jan, [facility] [address] [id number] [address] [place] [address], [place] [address] Jan, [facility] [address] [id number] [address] [place] [address], [place] [address] Jan, [facility] [address] [id number] [address] [place] [address], [place] [address] Jan, [facility] [address] [id number] [address] [place] [address], [place] [address] Jan, [facility] [address] [id number] [facility] [place] [address] Jan, [facility] [address] [id number] [facility] [place] [address] Jan, [facility] [address] [id number] [facility] [place] [address] Jan, [facility] [address] [id number] [facility] [place] [address] Jan, [facility] [address] [id number] [facility] [place] [address] Jan, [facility] [address] [id number] [address] [place] [address], [place] [address] Jan, [facility] [address] [id number] [address] [place] [address], [place] [address] Jan, [facility] [address] [id number] [address] [place] [address], [place] [address] Jan, [facility] [address] [id number] [address] [place] [address], [place] [address] Jan, [facility] [address] [id number] [address] [place] [address], [place] [address] Jan, [facility] [address] [id number] [address] [place] [address], [place] [address] Jan, [facility] [address] [id number] [address] [place] [address], [place] [address] Jan, [facility] [address] [id number] [address] [place] [address], [place] [address] Jan, [facility] [address] [id number] [address] [place] [address], [place] [address] Dec, [facility] [address] [id number] [address] [place] [address], [place] [address] Dec, [facility] [address] [id number] [address] [place] [address], [place] [address] 17 Dec, 2013 [facility] [address] [id number] [address] [place] [address], [place] [address] Dec, 2013 [facility] [address] [id number] [address] [place] [address], [place] [address] 14 Dec, 2013 [facility] [address] [id number] [address] [place] [address], [place] [address] Dec, 2013 [facility] [address] [id number] [address] [place] [address], [place] [address] Dec, [facility] [address] [id number] [address] [place] [address], [place] [address] Dec, [facility] [address] [id number] [address] [place] [address], [place] [address] Dec, [facility] [address] [id number] [address] [place] [address], [place] [address] Dec, [facility] [address] [id number] [address] [place] [address], [place] [address] Dec, [facility] [address] [id number] [address] [place] [address], [place] [address] Dec, [facility] [address] [id number] [address] [place] [address], [place] [address] Nov, [facility] [address] [id number] [address] [place] [address], [place] [address] Nov, [facility] [address] [id number] [address] [place] [address], [place] [address] Nov, [facility] [address] [id number] [address] [place] [address], [place] [address] Nov, [facility] [address] [id number] [address] [place] [address], [place] [address] Nov, [facility] [address] [id number] [address] [place] [address], [place] [address] Nov, [facility] [address] [id number] [address] [place] [address], [place] [address] Nov, [facility] [address] [id number] [address] [place] [address], [place] [address] Oct, [facility] [address] [id number] [address] [place] [address], [place] [address] Oct, [facility] [address] [id number] [address] [place] [address], [place] [address] Sep, [facility] [address] [id number] [address] [place] [address], [place] [address] Sep, [facility] [address] [id number] [address] [place] [address], [place] [address] Sep, [facility] [address] [id number] [address] [place] [address], [place] [address] Sep, [facility] [address] [id number] [address] [place] [address], [place] [address] Aug, [facility] [address] [id number] [address] [place] [address], [place] [address] Aug, [facility] [address] [id number] [address] [place] [address], [place] [address] Aug, [facility] [address] [id number] [address] [place] [address], [place] [address] Jul, [facility] [address] [id number] [address] [place] [address], [place] [address] Jul, [facility] [address] [id number] [address] [place] [address], [place] [address] Jun, [facility] [address] [id number] [address] [place] [address], [place] [address] Jun, [facility] [address] [id number] [address] [place] [address], [place] [address] Jun, [facility] [address] [id number] [address] [place] [address], [place] [address] 08 May, 2013 [facility] [address] [id number] [address] [place] [address], [place] [address] May, [facility] [address] [id number] [address] [place] [address], [place] [address] May, [facility] [address] [id number] [address] [place] [address], [place] [address] Apr, [facility] [address] [id number] [address] [place] [address], [place] [address] Apr, [facility] [address] [id number] [address] [place] [address], [place] [address] March, [facility] [address] [id number] [address] [place] [address], [place] [address] Feb, [facility] [address] [id number] [address] [place] [address], [place] [address] Jan, [facility] [address] [id number] [address] [place] [address], [place] [address] Jan, [facility] [address] [id number] [address] [place] [address], [place] [address] Dec, [facility] [address] [id number] [address] [place] [address], [place] [address] Nov, [facility] [address] [id number] [address] [place] [address], [place] [address] Oct, [facility] [address] [id number] [address] [place] [address], [place] [address] Oct, [facility] [address] [id number] [address] [place] [address], [place] [address] Sep, [facility] [address] [id number] [address] [place] [address], [place] [address] Sep, [facility] [address] [id number] [address] [place] [address], [place] [address] Sep, [facility] [address] [id number] [address] [place] [address], [place] [address] 28 Sep, 2012 [facility] [address] [id number] [address] [place] [address], [place] [address] 13 Sep, 2012 [facility] [address] [id number] [address] [place] [address], [place] [address] 13 Sep, 2012 [facility] [address] [id number] [address] [place] [address], [place] [address] Sep, [facility] [address] [id number] [address] [place] [address], [place] [address] Sep, [facility] [address] [id number] [address] [place] [address], [place] [address] 04 Jul, 2012 [facility] [address] [id number] [address] [place] [address], [place] [address] Jun, [facility] [address] [id number] [address] [place] [address], [place] [address] Jun, [facility] [address] [id number] [address] [place] [address], [place] [address] Jun, [facility] [address] [id number] [address] [place] [address], [place] [address] Jun, [facility] [address] [id number] [address] [place] [address], [place] [address] May, [facility] [address] [id number] [address] [place] [address], [place] [address] Apr, [facility] [address] [id number] [address] [place] [address], [place] [address] Jan, [facility] [address] [id number] [address] [place] [address], [place] [address] 14 Dec, 2011 [facility] [address] [id number] [address] [place] [address], [place] [address] 10 Dec, 2011 [facility] [address] [id number] [address] [place] [address] [place] [address] 27 Nov, 2011 [facility] [address] [id number] [address] [place] [address], [place] [address] 19 Oct, 2011 [facility] [address] [id number] [address] [place] [address], [place] [address] 19 Oct, 2011 [facility] [address] [id number] [address] [place] [address], [place] [address] 18 Aug, 2011 [facility] [address] [id number] [address] [place] [address], [place] [address] 18 Aug, 2011 [facility] [address] [id number] [address] [place] [address], [place] [address] 18 Aug, 2011 [facility] [address] [id number] [address] [place] [address], [place] [address] 14 Aug, 2011 [facility] [address] [id number] [address] [place] [address], [place] [address] 11 Aug, 2011 [facility] [address] [id number] [address] [place] [address], [place] [address] 11 Aug, 2011 [facility] [address] [id number] [address] [place] [address], [place] [address] May, [facility] [address] [id number] [address] [place] [address], [place] [address] 13 Apr, 2011 [facility] [address] [id number] [address] [place] [address], [place] [address] 18 Feb, 2011 [facility] [address] [id number] [address] [place] [address], [place] [id number] Oct, [facility] [address] [id number] [address] [place] [address], [place] [id number] Oct, [facility] [address] [id number] [address] [place] [address], [place] [id number] 07 Oct, 2010 [facility] [address] [id number] [address] [place] [address], [place] [address] Sep, [facility] [address] [id number] [address] [place] [id number] Aug, [facility] [address] [id number] [address] [place] [id number] 16 Jul, 2010 [facility] [address] [id number] [address] [place] [id number] May, [facility] [address] [id number] [address] [place] [id number] Dec, [facility] [address] [id number] [address] [place] [phone] Nov, [facility] [address] [id number] [address] [place] [id number] Oct, [facility] [address] [id number] [address] [place] [id number] Sep, [facility] [address] [id number] [address] [place] [id number] Sep, [facility] [address] [id number] [address] [place] [id number] Jul, [facility] [address] [id number] [address] [place] [id number] Jun, [facility] [address] [id number] [address] [place] [phone] May, IMMUNIZATIONS No Known Immunizations SOCIAL HISTORY Never Assessed REASON FOR VISIT PLAN OF CARE VITAL SIGNS Height 73 in 2014-11-01 Weight 210 lbs 2014-11-01 Temperature 98 degrees Fahrenheit 2014-11-01 Heart Rate 78 bpm 2014-11-01 Respiratory Rate 18 2014-11-01 Blood pressure systolic 108 mmHg 2014-11-01 Blood pressure diastolic 68 mmHg 2014-11-01 MEDICATIONS Unknown Medications RESULTS No Results PROCEDURES [...] left LE Surgical History Umbilical hernia repair ([facility]) 2004 Surgical History Bilat inguinal hernia repair Surgical History Orthopedic surgery right rian t/ankle fracture with surgical repair Surgical History tonsillectomy Hospitalization History surgeries Hospitalization History blood clots in the leg
--- OUTSIDE RECORDS SUMMARY | 2020-06-11 20:58 | XMS REPORT ---
Author Author Jd ROBLEDO Organization [facility] [place] Address [address] [place] [address] Care Team Providers Care Manager Corporate Name Role Phone PAULA ROBLEDO Unavailable PROBLEMS Type Condition ICD9-CM Code [id number] Code Onset Dates Condition S tatus SNOMED Code Problem Raynauds disease I73.00 Active 195 017376 Problem Venous insufficiency I87.2 Active 15765939 Problem Neuropathy G62.9 Active 359160233 Problem Hypokalemia E87.6 Active 52469901 Problem Other chronic pain G89.29 Active 8 9305873 Problem Low back pain M54.5 Active 208061 009 Problem Congenital deafness H90.5 Active 96920292 Problem Dysthymia F34.1 Active [id number] ALLERGIES No Information ENCOUNTERS Encounter Location Date Diagnosis [facility] [address] [id number] [address] [place] [address] Jan, Abscess of left knee L02.416 [facility] [place] [address] [id number] [address] [place] [address] Jan, Prediabetes R73.03 ; Raynaud s disease I73.00 and Venous insufficiency I87.2 [facility] [place] [address] [facility] [id number] [address] [place] [address] Oct, Neuropathy G62.9 ; Low back pain M54.5 and URI (upper respiratory infection) J06.9 [facility] [place] [address] [id number] [address] [place] [address] Jul, Raynauds disease I73.00 and Hypokalemia E87.6 [facility] [place] [address] [id number] [address] [place] [address] May, Medicare annual wellness vis it, initial Z00.00 ; Dysthymia F34.1 ; Raynauds disease I73.00 ; Venous insufficiency I87.2 ; Congenital deafness H90.5 and Neuropathy G62.9 [place] [address] [id number] [address] [place] [address] Apr, [place] [address] [id number] [address] [place] [address] Apr, Prediabetes R73.03 ; Raynaud s disease I73.00 ; Venous insufficiency I87.2 ; Neuropathy G62.9 and Dysthymia F34.1 [place] [address] [id number] [address] [place] [address] March, [place] [id number] [place] [address] Sep, Hyperglycemia R73.9 [place] [address] [address] Sep, Hyperglycemia R73.9 [place] [address] [id number] [address] [place] [address] Sep, Raynauds disease I73.00 ; Ve nous insufficiency I87.2 and Encounter for immunization Z23 [place] [address] [id number] [address] [place] [address] Jun, [place] [address] [id number] [address] [place] [address] May, [place] [id number] [place] [address] May, Other chronic pain G89.29 [place] [address] [id number] [address] [place] [address] May, Raynauds disease I73.00 ; Ve nous insufficiency I87.2 and Low back pain M54.5 [place] [address] [id number] [address] [place] [address] 13 Feb, 2017 Raynauds disease I73.00 ; Ve nous insufficiency I87.2 ; Low back pain M54.5 and Other chronic pain G89.29 [facility] [place] [address] [facility] [id number] [address] [place] [address] 18 Nov, 2016 [facility] [place] [address] [facility] [id number] [address] [place] [address] Nov, Muscle spasm M62.838 [facility] [address] [id number] [address] [place] [address] 16 Nov, 2016 [facility] [place] [id number] [place] [address] Oct, Folliculitis L73.9 and Venou s insufficiency I87.2 [facility] [place] [address] [id number] [address] [place] [address] Sep, Dermatitis L30.9 and Raynaud s disease I73.00 [facility] [address] [id number] [address] [place] [address] Sep, Rash and nonspecific skin er uption R21 [facility] [place] [address] [address] Aug, Skin infection L08.9 [facility] [place] [address] [id number] [address] [place] [address] May, Infected smith L08.9 [facility] [place] [address] [id number] [address] [place] [address] May, Skin infection L08.9 [facility] [place] [address] [id number] [address] [place] [address] Dec, [facility] [place] [address] [id number] [address] [place] [address] Nov, [facility] [place] [address] [id number] [address] [place] [address] Nov, [facility] [place] [address] [address] Nov, Raynauds disease I73.00 [facility] [place] [address] [facility] [id number] [address] [place] [address] Nov, Raynauds disease I73.00 ; Le g cramps R25.2 ; Venous insufficiency I87.2 and Routine adult health maintenance Z00.00 [facility] [place] [address] [facility] [id number] [address] [place] [address] Jul, Infected sebaceous cyst 706. 2 [facility] [place] [address] [facility] [id number] [address] [place] [address] Jun, [facility] [place] [address] [facility] [id number] [address] [place] [address] Jun, [facility] [place] [address] [facility] [id number] [address] [place] [address] Jun, Venous insufficiency 459.81 and Raynauds disease 443.0 [facility] [place] [address] [facility] [id number] [address] [place] [address] Feb, [facility] [place] [address] [facility] [id number] [address] [place] [address] Feb, [facility] [place] [address] [facility] [id number] [address] [place] [address] Jan, [facility] [place] [address] [facility] [id number] [address] [place] [address] Jan, [facility] [place] [address] [facility] [id number] [address] [place] [address] Dec, [facility] [place] [address] [facility] [id number] [address] [place] [address] Dec, [facility] [place] [address] [facility] [id number] [address] [place] [address] Dec, [facility] [place] [address] [facility] [id number] [address] [place] [address] Dec, [facility] [address] [id number] [address] [place] [address], [place] [address] Nov, [facility] [address] [id number] [address] [place] [address], [place] [address] Nov, [facility] [address] [id number] [address] [place] [address], [place] [address] Oct, [facility] [address] [id number] [address] [place] [address], [place] [address] Oct, [facility] [address] [id number] [address] [place] [address], [place] [address] Aug, [facility] [address] [id number] [address] [place] [address], [place] [address] Aug, [facility] [address] [id number] [address] [place] [address], [place] [address] Aug, [facility] [address] [id number] [address] [place] [address], [place] [address] Jul, [facility] [address] [id number] [address] [place] [address], [place] [address] Jul, [facility] [address] [id number] [address] [place] [address], [place] [address] Jul, [facility] [address] [id number] [address] [place] [address], [place] [address] Jul, [facility] [address] [id number] [address] [place] [address] Jun, [facility] [address] [id number] [address] [place] [address], [place] [address] Jun, [facility] [address] [id number] [address] [place] [address], [place] [address] Jun, [facility] [address] [id number] [address] [place] [address] Jun, [facility] [address] [id number] [address] [place] [address], [place] [address] May, [facility] [address] [id number] [facility] [place] [address] May, [facility] [address] [id number] [address] [place] [address], [place] [address] May, [facility] [address] [id number] [address] [place] [address], [place] [address] 15 May, 2014 [facility] [address] [id number] [address] [place] [address], [place] [address] May, [facility] [address] [id number] [address] [place] [address], [place] [address] May, [facility] [address] [id number] [address] [place] [address], [place] [address] May, [facility] [address] [id number] [address] [place] [address], [place] [address] Apr, [facility] [address] [id number] [address] [place] [address], [place] [address] Apr, [facility] [address] [id number] [address] [place] [address], [place] [address] Apr, [facility] [address] [id number] [address] [place] [address], [place] [address] Apr, [facility] [address] [id number] [address] [place] [address], [place] [address] March, [facility] [address] [id number] [address] [place] [address], [place] [address] March, [facility] [address] [id number] [address] [place] [address], [place] [address] March, [facility] [address] [id number] [address] [place] [address], [place] [address] March, [facility] [address] [id number] [address] [place] [address], [place] [address] March, [facility] [address] [id number] [address] [place] [address], [place] [address] March, [facility] [address] [id number] [address] [place] [address], [place] [address] March, [facility] [address] [id number] [address] [place] [address], [place] [address] Feb, [facility] [address] [id number] [address] [place] [address], [place] [address] Feb, [facility] [address] [place] [id number] Feb, [facility] [address] [id number] [address] [place] [address], [place] [address] Feb, [facility] [address] [id number] [address] [place] [address], [place] [address] Feb, [facility] [address] [id number] [address] [place] [address], [place] [address] Feb, [facility] [address] [id number] [address] [place] [address], [place] [address] Jan, [facility] [address] [id number] [address] [place] [address], [place] [address] Jan, [facility] [address] [id number] [address] [place] [address], [place] [address] Jan, [facility] [address] [id number] [address] [place] [address], [place] [address] Jan, [facility] [address] [id number] [address] [place] [address], [place] [address] Jan, [facility] [address] [id number] [address] [place] [address], [place] [address] Jan, [facility] [address] [id number] [address] [place] [address], [place] [address] Jan, [facility] [address] [id number] [address] [place] [address], [place] [address] Jan, [facility] [address] [id number] [facility] [place] [address] Jan, [facility] [address] [id number] [facility] [place] [address] Jan, [facility] [address] [id number] [facility] [place] [address] Jan, [facility] [address] [id number] [address] [place] [address], [place] [address] Jan, [facility] [address] [id number] [facility] [place] [address] Jan, [facility] [address] [id number] [address] [place] [address], [place] [address] Jan, [facility] [address] [id number] [address] [place] [address], [place] [address] Jan, [facility] [address] [id number] [address] [place] [address], [place] [address] Jan, [facility] [address] [id number] [address] [place] [address], [place] [address] Jan, [facility] [address] [id number] [address] [place] [address], [place] [address] Jan, [facility] [address] [id number] [address] [place] [address], [place] [address] Dec, [facility] [address] [id number] [address] [place] [address], [place] [address] Dec, [facility] [address] [id number] [address] [place] [address], [place] [address] Dec, [facility] [address] [id number] [address] [place] [address], [place] [address] 17 Dec, 2013 [facility] [address] [id number] [address] [place] [address], [place] [address] 14 Dec, 2013 [facility] [address] [id number] [address] [place] [address], [place] [address] 07 Dec, 2013 [facility] [address] [id number] [address] [place] [address], [place] [address] Dec, [facility] [address] [id number] [address] [place] [address], [place] [address] Dec, [facility] [address] [id number] [address] [place] [address], [place] [address] Dec, [facility] [address] [id number] [address] [place] [address], [place] [address] Dec, [facility] [address] [id number] [address] [place] [address], [place] [address] Dec, [facility] [address] [id number] [address] [place] [address], [place] [address] Dec, [facility] [address] [id number] [address] [place] [address], [place] [address] Nov, [facility] [address] [id number] [address] [place] [address], [place] [address] Nov, [facility] [address] [id number] [address] [place] [address], [place] [address] Nov, [facility] [address] [id number] [address] [place] [address], [place] [address] Nov, [facility] [address] [id number] [address] [place] [address], [place] [address] Nov, [facility] [address] [id number] [address] [place] [address], [place] [address] Nov, [facility] [address] [id number] [address] [place] [address], [place] [address] Nov, [facility] [address] [id number] [address] [place] [address], [place] [address] Oct, [facility] [address] [id number] [address] [place] [address], [place] [address] Oct, [facility] [address] [id number] [address] [place] [address], [place] [address] Sep, [facility] [address] [id number] [address] [place] [address], [place] [address] Sep, [facility] [address] [id number] [address] [place] [address], [place] [address] Sep, [facility] [address] [id number] [address] [place] [address], [place] [address] Sep, [facility] [address] [id number] [address] [place] [address], [place] [address] Aug, [facility] [address] [id number] [address] [place] [address], [place] [address] Aug, [facility] [address] [id number] [address] [place] [address], [place] [address] Aug, [facility] [address] [id number] [address] [place] [address], [place] [address] Jul, [facility] [address] [id number] [address] [place] [address], [place] [address] Jul, [facility] [address] [id number] [address] [place] [address], [place] [address] Jun, [facility] [address] [id number] [address] [place] [address], [place] [address] Jun, [facility] [address] [id number] [address] [place] [address] Jun, [facility] [address] [id number] [address] [place] [address], [place] [address] May, [facility] [address] [id number] [address] [place] [address], [place] [address] May, [facility] [address] [id number] [address] [place] [address] May, [facility] [address] [id number] [address] [place] [address], [place] [address] Apr, [facility] [address] [id number] [address] [place] [address], [place] [address] Apr, [facility] [address] [id number] [address] [place] [address], [place] [address] March, [facility] [address] [id number] [address] [place] [address], [place] [address] Feb, [facility] [address] [id number] [address] [place] [address], [place] [address] Jan, [facility] [address] [id number] [address] [place] [address], [place] [address] 2013 [facility] [address] [id number] [address] [place] [address], [place] [address] 07 Dec, 2012 [facility] [address] [id number] [address] [place] [address], [place] [address] Nov, [facility] [address] [id number] [address] [place] [address], [place] [address] Oct, [facility] [address] [id number] [address] [place] [address], [place] [address] Oct, [facility] [address] [id number] [address] [place] [address], [place] [id number] 30 Sep, 2012 [facility] [address] [id number] [address] [place] [address], [place] [id number] 29 Sep, 2012 [facility] [address] [id number] [address] [place] [address], [place] [id number] 29 Sep, 2012 [facility] [address] [id number] [address] [place] [address], [place] [address] 28 Sep, 2012 [facility] [address] [id number] [address] [place] [address], [place] [address] 13 Sep, 2012 [facility] [address] [id number] [address] [place] [address], [place] [address] 13 Sep, 2012 [facility] [address] [id number] [address] [place] [address], [place] [address] Sep, [facility] [address] [id number] [address] [place] [address], [place] [address] Sep, [facility] [address] [id number] [address] [place] [address], [place] [id number] Jul, [facility] [address] [id number] [address] [place] [address], [place] [address] Jun, [facility] [address] [id number] [address] [place] [address], [place] [id number] Jun, [facility] [address] [id number] [address] [place] [address], [place] [id number] Jun, [facility] [address] [id number] [address] [place] [address], [place] [address] Jun, [facility] [address] [id number] [address] [place] [address], [place] [id number] May, [facility] [address] [id number] [address] [place] [address], [place] [address] Apr, [facility] [address] [id number] [address] [place] [address], [place] [address] Jan, [facility] [address] [id number] [address] [place] [address], [place] [address] Dec, [facility] [address] [id number] [address] [place] [address], [place] [address] Dec, [facility] [address] [id number] [address] [place] [address], [place] [id number] Nov, [facility] [address] [id number] [address] [place] [address], [place] [id number] Oct, [facility] [address] [id number] [address] [place] [address], [place] [id number] Oct, [facility] [address] [id number] [address] [place] [address], [place] [id number] 18 Aug, 2011 [facility] [address] [id number] [address] [place] [address], [place] [id number] 18 Aug, 2011 [facility] [address] [id number] [address] [place] [address], [place] [address] 18 Aug, 2011 [facility] [address] [id number] [address] [place] [address], [place] [id number] 14 Aug, 2011 [facility] [address] [id number] [address] [place] [address], [place] [address] 11 Aug, 2011 [facility] [address] [id number] [address] [place] [address], [place] [address] 11 Aug, 2011 [facility] [address] [id number] [address] [place] [address], [place] [id number] 19 May, 2011 [facility] [address] [id number] [address] [place] [address], [place] [address] Apr, [facility] [address] [id number] [address] [place] [address], [place] [id number] 18 Feb, 2011 [facility] [address] [id number] [address] [place] [address], [place] [address] Oct, [facility] [address] [id number] [address] [place] [address], [place] [address] Oct, [facility] [address] [id number] [address] [place] [address], [place] [id number] 07 Oct, 2010 [facility] [address] [id number] [address] [place] [address], [place] [id number] 09 Sep, 2010 [facility] [address] [id number] [address] [place] [address], [place] [id number] 26 Aug, 2010 [facility] [address] [id number] [address] [place] [address], [place] [id number] 16 Jul, 2010 [facility] [address] [id number] [address] [place] [address], [place] [id number] 13 May, 2010 [facility] [address] [id number] [address] [place] [id number] Dec, [place] [facility], [place] [address] [id number] [address] [place] [id number] Nov, [facility], [place] [address] [id number] [address] [place] [id number] Oct, [facility], [place] [address] [facility] [id number] [address] [place] [id number] Sep, [facility], [place] [address] [facility] [id number] [address] [place] [id number] Sep, [facility], [place] [address] [facility] [id number] [address] [place] [id number] Jul, [facility], [place] [address] [facility] [id number] [address] [place] [id number] Jun, [facility], [place] [address] [facility] [id number] [address] [place] [id number] May, IMMUNIZATIONS No Known Immunizations SOCIAL HISTORY [...]
--- OUTSIDE RECORDS SUMMARY | 2020-06-11 20:58 | XMS REPORT ---
Author Author Jd ROBLEDO Organization [facility] Address [address] [place] [address] Care Team Providers Care Control And Recovery Special Tactics Name Role Phone PAULA ROBLEDO Unavailable PROBLEMS Type Condition ICD9-CM Code TNX25-MZ Code Onset Dates Condition S tatus SNOMED Code Problem Raynauds disease I73.00 Active 195 978190 Problem Venous insufficiency I87.2 Active 07548662 Problem Neuropathy G62.9 Active 763619810 Problem Hypokalemia E87.6 Active 72357413 Problem Other chronic pain G89.29 Active 8 5063111 Problem Low back pain M54.5 Active 103674 009 Problem Congenital deafness H90.5 Active 98334598 Problem Dysthymia F34.1 Active 99667795 ALLERGIES No Information ENCOUNTERS Encounter Location Date Diagnosis [facility] [id number] [place] [address] Jun, [facility] [address] [id number] [address] [place] [address] Jan, Abscess of left knee L02.416 [facility] [address] [id number] [address] [place] [address] Jan, Prediabetes R73.03 ; Raynaud s disease I73.00 and Venous insufficiency I87.2 [facility] [address] [id number] [address] [place] [address] Oct, Neuropathy G62.9 ; Low back pain M54.5 and URI (upper respiratory infection) J06.9 [facility] [id number] [address] [place] [address] Jul, Raynauds disease I73.00 and Hypokalemia E87.6 [facility] [id number] [place] [address] May, Medicare annual wellness vis it, initial Z00.00 ; Dysthymia F34.1 ; Raynauds disease I73.00 ; Venous insufficiency I87.2 ; Congenital deafness H90.5 and Neuropathy G62.9 [place] [id number] [address] [place] [address] Apr, [place] [address] [address] Apr, Prediabetes R73.03 ; Raynaud s disease I73.00 ; Venous insufficiency I87.2 ; Neuropathy G62.9 and Dysthymia F34.1 [place] [id number] [address] [place] [address] March, [place] [address] [address] Sep, Hyperglycemia R73.9 [place] [id number] [place] [address] Sep, Hyperglycemia R73.9 [place] [address] [address] Sep, Raynauds disease I73.00 ; Ve nous insufficiency I87.2 and Encounter for immunization Z23 [place] [id number] [place] [address] Jun, [place] [address] [address] May, [place] [address] [address] May, Other chronic pain G89.29 [place] [address] [id number] [address] [place] [address] May, Raynauds disease I73.00 ; Ve nous insufficiency I87.2 and Low back pain M54.5 [place] [address] [facility] [id number] [address] [place] [address] 13 Dec, 2016 Raynauds disease I73.00 ; Ve nous insufficiency I87.2 ; Low back pain M54.5 and Other chronic pain G89.29 [facility] [address] [facility] [id number] [address] [place] [address] 18 Nov, 2016 [facility] [address] [facility] [id number] [address] [place] [address] 17 Nov, 2016 Muscle spasm M62.838 [facility] [address] [facility] [id number] [address] [place] [address] 16 Nov, 2016 [facility] [id number] [address] [place] [id number] 15 Oct, 2016 Folliculitis L73.9 and Venou s insufficiency I87.2 [facility] [address] [facility] [id number] [address] [place] [address] Sep, Dermatitis L30.9 and Raynaud s disease I73.00 [facility] [address] [facility] [id number] [address] [place] [phone] Sep, Rash and nonspecific skin er uption R21 [facility] [address] [facility] [id number] [address] [place] [address] Aug, Skin infection L08.9 [facility] [id number] [address] [place] [address] May, Infected smith L08.9 [facility] [address] [facility] [id number] [address] [place] [address] May, Skin infection L08.9 [facility] [address] [facility] [id number] [address] [place] [address] 05 Dec, 2015 [facility] [address] [facility] [id number] [address] [place] [address] Nov, [facility] [address] [id number] [address] [place] [address] Nov, [facility] [address] [facility] [id number] [address] [place] [address] Nov, Raynauds disease I73.00 [facility] [address] [facility] [id number] [address] [place] [address] Nov, Raynauds disease I73.00 ; Le g cramps R25.2 ; Venous insufficiency I87.2 and Routine adult health maintenance Z00.00 [facility] [address] [facility] [id number] [address] [place] [address] Jul, Infected sebaceous cyst 706. 2 [facility] [address] [facility] [id number] [address] [place] [address] Jun, [facility] [address] [id number] [address] [place] [address] Jun, [facility] [address] [facility] [id number] [address] [place] [address] Jun, Venous insufficiency 459.81 and Raynauds disease 443.0 [facility] [address] [facility] [id number] [address] [place] [address] Feb, [facility] [address] [facility] [id number] [address] [place] [address] Feb, [facility] [address] [facility] [id number] [address] [place] [address] Jan, [facility] [address] [facility] [id number] [address] [place] [address] Jan, [facility] [address] [facility] [id number] [address] [place] [address] Dec, [facility] [address] [facility] [id number] [address] [place] [address] Dec, [facility] [address] [facility] [id number] [address] [place] [address] Dec, [facility] [address] [id number] [address] [place] [address], [place] [address] Dec, [facility] [address] [id number] [address] [place] [address], [place] [address] Nov, [facility] [address] [id number] [address] [place] [address], [place] [address] Nov, [facility] [address] [id number] [address] [place] [address], [place] [address] Oct, [facility] [address] [id number] [address] [place] [address], [place] [address] Oct, [facility] [address] [id number] [address] [place] [address], [place] [address] Aug, [facility] [address] [id number] [address] [place] [address], [place] [address] Aug, [facility] [address] [id number] [address] [place] [address], [place] [address] Aug, [facility] [address] [id number] [address] [place] [address], [place] [address] Jul, [facility] [address] [id number] [address] [place] [address], [place] [address] Jul, [facility] [address] [id number] [address] [place] [address], [place] [address] Jul, [facility] [address] [id number] [address] [place] [address] Jul, [facility] [address] [id number] [address] [place] [address], [place] [address] Jun, [facility] [address] [id number] [address] [place] [address], [place] [address] Jun, [facility] [address] [id number] [address] [place] [address] Jun, [facility] [address] [id number] [address] [place] [address], [place] [address] Jun, [facility] [address] [id number] [facility] [place] [address] May, [facility] [address] [id number] [address] [place] [address], [place] [address] May, [facility] [address] [id number] [address] [place] [address], [place] [address] May, [facility] [address] [id number] [address] [place] [address], [place] [address] May, [facility] [address] [id number] [address] [place] [address], [place] [address] May, [facility] [address] [id number] [address] [place] [address], [place] [address] May, [facility] [address] [id number] [address] [place] [address], [place] [address] May, [facility] [address] [id number] [address] [place] [address], [place] [address] Apr, [facility] [address] [id number] [address] [place] [address], [place] [address] Apr, [facility] [address] [id number] [address] [place] [address], [place] [address] Apr, [facility] [address] [id number] [address] [place] [address], [place] [address] Apr, [facility] [address] [id number] [address] [place] [address], [place] [address] March, [facility] [address] [id number] [address] [place] [address], [place] [address] March, [facility] [address] [id number] [address] [place] [address], [place] [address] March, [facility] [address] [id number] [address] [place] [address], [place] [address] March, [facility] [address] [id number] [address] [place] [address], [place] [address] March, [facility] [address] [id number] [address] [place] [address], [place] [address] March, [facility] [address] [id number] [address] [place] [address], [place] [address] March, [facility] [address] [id number] [address] [place] [address], [place] [address] Feb, [facility] [address] [id number] [address] [place] [address], [place] [address] Feb, [facility] [address] [place] [id number] Feb, [facility] [address] [id number] [address] [place] [address], [place] [address] Feb, [facility] [address] [id number] [address] [place] [address], [place] [address] Feb, [facility] [address] [id number] [address] [place] [address], [place] [address] Feb, [facility] [address] [id number] [address] [place] [address], [place] [address] Jan, [facility] [address] [id number] [address] [place] [address], [place] [address] Jan, [facility] [address] [id number] [address] [place] [address], [place] [address] Jan, [facility] [address] [id number] [address] [place] [address], [place] [address] Jan, [facility] [address] [id number] [address] [place] [address], [place] [address] Jan, [facility] [address] [id number] [address] [place] [address], [place] [address] Jan, [facility] [address] [id number] [address] [place] [address], [place] [address] Jan, [facility] [address] [id number] [facility] [place] [address] Jan, [facility] [address] [id number] [facility] [place] [address] Jan, [facility] [address] [id number] [facility] [place] [address] Jan, [facility] [address] [id number] [address] [place] [address], [place] [address] Jan, [facility] [address] [id number] [facility] [place] [address] Jan, [facility] [address] [id number] [address] [place] [address], [place] [address] Jan, [facility] [address] [id number] [address] [place] [address], [place] [address] Jan, [facility] [address] [id number] [address] [place] [address], [place] [address] Jan, [facility] [address] [id number] [address] [place] [address], [place] [address] Jan, [facility] [address] [id number] [address] [place] [address], [place] [address] Jan, [facility] [address] [id number] [address] [place] [address], [place] [address] Jan, [facility] [address] [id number] [address] [place] [address], [place] [address] Dec, [facility] [address] [id number] [address] [place] [address], [place] [address] Dec, [facility] [address] [id number] [address] [place] [address], [place] [address] Dec, [facility] [address] [id number] [address] [place] [address], [place] [address] Dec, [facility] [address] [id number] [address] [place] [address], [place] [address] 14 Dec, 2013 [facility] [address] [id number] [address] [place] [address], [place] [address] Dec, [facility] [address] [id number] [address] [place] [address], [place] [address] Dec, [facility] [address] [id number] [address] [place] [address], [place] [address] Dec, [facility] [address] [id number] [address] [place] [address], [place] [address] Dec, [facility] [address] [id number] [address] [place] [address], [place] [address] Dec, [facility] [address] [id number] [address] [place] [address], [place] [address] Dec, [facility] [address] [id number] [address] [place] [address], [place] [address] Dec, [facility] [address] [id number] [address] [place] [address], [place] [address] Nov, [facility] [address] [id number] [address] [place] [address], [place] [address] Nov, [facility] [address] [id number] [address] [place] [address], [place] [address] Nov, [facility] [address] [id number] [address] [place] [address], [place] [address] Nov, [facility] [address] [id number] [address] [place] [address], [place] [address] Nov, [facility] [address] [id number] [address] [place] [address], [place] [address] Nov, [facility] [address] [id number] [address] [place] [address], [place] [address] Nov, [facility] [address] [id number] [address] [place] [address], [place] [address] Oct, [facility] [address] [id number] [address] [place] [address], [place] [address] Oct, [facility] [address] [id number] [address] [place] [address], [place] [address] Sep, [facility] [address] [id number] [address] [place] [address], [place] [address] Sep, [facility] [address] [id number] [address] [place] [address], [place] [address] Sep, [facility] [address] [id number] [address] [place] [address], [place] [address] Sep, [facility] [address] [id number] [address] [place] [address], [place] [address] Aug, [facility] [address] [id number] [address] [place] [address], [place] [address] Aug, [facility] [address] [id number] [address] [place] [address], [place] [address] Aug, [facility] [address] [id number] [address] [place] [address], [place] [address] Jul, [facility] [address] [id number] [address] [place] [address] Jul, [facility] [address] [id number] [address] [place] [address], [place] [address] Jun, [facility] [address] [id number] [address] [place] [address] Jun, [facility] [address] [id number] [address] [place] [address], [place] [address] Jun, [facility] [address] [id number] [address] [place] [address], [place] [address] May, [facility] [address] [id number] [address] [place] [address] May, [facility] [address] [id number] [address] [place] [address] May, [facility] [address] [id number] [address] [place] [address], [place] [address] Apr, [facility] [address] [id number] [address] [place] [address], [place] [address] Apr, [facility] [address] [id number] [address] [place] [address], [place] [address] March, [facility] [address] [id number] [address] [place] [address], [place] [address] Feb, [facility] [address] [id number] [address] [place] [address], [place] [address] Jan, [facility] [address] [id number] [address] [place] [address], [place] [address] Jan, [facility] [address] [id number] [address] [place] [address], [place] [address] 07 Dec, 2012 [facility] [address] [id number] [address] [place] [address], [place] [address] Nov, [facility] [address] [id number] [address] [place] [address], [place] [address] Oct, [facility] [address] [id number] [address] [place] [address], [place] [address] Oct, [facility] [address] [id number] [address] [place] [address], [place] [address] 30 Sep, 2012 [facility] [address] [id number] [address] [place] [address], [place] [address] Sep, [facility] [address] [id number] [address] [place] [address], [place] [address] Sep, [facility] [address] [id number] [address] [place] [address], [place] [address] 28 Sep, 2012 [facility] [address] [id number] [address] [place] [address], [place] [address] 13 Sep, 2012 [facility] [address] [id number] [address] [place] [address], [place] [address] 13 Sep, 2012 [facility] [address] [id number] [address] [place] [address], [place] [address] Sep, [facility] [address] [id number] [address] [place] [address], [place] [address] Sep, [facility] [address] [id number] [address] [place] [address], [place] [address] 04 Jul, 2012 [facility] [address] [id number] [address] [place] [address], [place] [address] Jun, [facility] [address] [id number] [address] [place] [address], [place] [address] Jun, [facility] [address] [id number] [address] [place] [address], [place] [address] Jun, [facility] [address] [id number] [address] [place] [address], [place] [address] Jun, [facility] [address] [id number] [address] [place] [address], [place] [address] May, [facility] [address] [id number] [address] [place] [address], [place] [address] Apr, [facility] [address] [id number] [address] [place] [address], [place] [address] Jan, [facility] [address] [id number] [address] [place] [address], [place] [address] 14 Dec, 2011 [facility] [address] [id number] [address] [place] [address], [place] [address] Dec, [facility] [address] [id number] [address] [place] [address], [place] [address] Nov, [facility] [address] [id number] [address] [place] [address], [place] [address] Oct, [facility] [address] [id number] [address] [place] [address], [place] [address] 19 Oct, 2011 [facility] [address] [id number] [address] [place] [address], [place] [address] 18 Aug, 2011 [facility] [address] [id number] [address] [place] [address], [place] [address] 18 Aug, 2011 [facility] [address] [id number] [address] [place] [address], [place] [address] 18 Aug, 2011 [facility] [address] [id number] [address] [place] [address], [place] [address] 14 Aug, 2011 [facility] [address] [id number] [address] [place] [address], [place] [address] 11 Aug, 2011 [facility] [address] [id number] [address] [place] [address], [place] [address] 11 Aug, 2011 [facility] [address] [id number] [address] [place] [address], [place] [address] 19 May, 2011 [facility] [address] [id number] [address] [place] [address], [place] [address] 13 Apr, 2011 [facility] [address] [id number] [address] [place] [address], [place] [address] 18 Feb, 2011 [facility] [address] [id number] [address] [place] [address], [place] [address] 28 Oct, 2010 [facility] [address] [id number] [address] [place] [address], [place] [address] Oct, [facility] [address] [id number] [address] [place] [id number] 07 Oct, 2010 [facility] [address] [id number] [address] [place] [address], [place] [address] 09 Sep, 2010 [facility] [address] [id number] [address] [place] [address], [place] [address] 26 Aug, 2010 [facility] [address] [id number] [place] [address], [place] [id number] 16 Jul, 2010 [facility] [address] [id number] [address] [place] [id number] 13 May, 2010 [facility] [address] [facility] [id number] [address] [place] [phone] Dec, [facility] [address] [id number] [address] [place] [id number] Nov, [facility] [address] [facility] [id number] [address] [place] [phone] Oct, [facility] [address] [facility] [id number] [address] [place] [phone] Sep, [facility] [address] [facility] [id number] [address] [place] [id number] Sep, [facility] [address] [facility] [id number] [address] [place] [phone] Jul, [facility] [address] [facility] [id number] [address] [place] [phone] Jun, [facility] [address] [facility] [id number] [address] [place] [phone] May, IMMUNIZATIONS No Known Immunizations SOCIAL HISTORY Never Assessed REASON FOR VISIT PLAN OF CARE VITAL SIGNS Height 73 in 2015-01-05 Weight 197 lbs 2015-01-05 Temperature 98.8 degrees Fahrenheit 2015-01-05 Heart Rate 80 bpm 2015-01-05 Respiratory Rate 18 2015-01-05 Blood pressure systolic 110 mmHg 2015-01-05 Blood pressure diastolic 62 mmHg 2015-01-05 MEDICATIONS Unknown Medications RESULTS No Results PROCEDURES Procedure Date Ordered Result Body Site BASIC METABOLIC PANEL Jan 05, 2015 VENIPUNCT, ROUTINE* Jan 05, 2015 INSTRUCTIONS MEDICATIONS ADMINISTERED No Known Medications MEDICAL [...]
--- OUTSIDE RECORDS SUMMARY | 2020-06-11 20:58 | XMS REPORT ---
Author Author Jd ROBLEDO Organization [facility] Address [address] [place] [address] Care Team Providers Care Telephonic Nurse Case Manager Name Role Phone PAULA ROBLEDO Unavailable PROBLEMS Type Condition ICD9-CM Code [id number] Code Onset Dates Condition S tatus SNOMED Code Problem Raynauds disease I73.00 Active 195 017056 Problem Venous insufficiency I87.2 Active 69790077 Problem Neuropathy G62.9 Active 137637050 Problem Hypokalemia E87.6 Active 19234847 Problem Other chronic pain G89.29 Active 8 5330190 Problem Low back pain M54.5 Active 517457 009 Problem Congenital deafness H90.5 Active 64078584 Problem Dysthymia F34.1 Active 38102506 ALLERGIES No Information ENCOUNTERS Encounter Location Date Diagnosis [facility] [address] [id number] [address] [place] [phone] Jun, [facility] [address] [facility] [id number] [address] [place] [address] Jun, [facility] [address] [id number] [address] [place] [address] Jun, Acute kidney injury N17.9 [facility] [address] [facility] [id number] [address] [place] [address] Jan, Abscess of left knee L02.416 [facility] [address] [facility] [id number] [address] [place] [address] Jan, Prediabetes R73.03 ; Raynaud s disease I73.00 and Venous insufficiency I87.2 [facility] [address] [facility] [id number] [address] [place] [phone] Oct, Neuropathy G62.9 ; Low back pain M54.5 and URI (upper respiratory infection) J06.9 [facility] [address] [facility] [id number] [address] [place] [address] Jul, Raynauds disease I73.00 and Hypokalemia E87.6 [facility] [address] [facility] [id number] [address] [place] [address] May, Medicare annual wellness vis it, initial Z00.00 ; Dysthymia F34.1 ; Raynauds disease I73.00 ; Venous insufficiency I87.2 ; Congenital deafness H90.5 and Neuropathy G62.9 [facility] [address] [facility] [id number] [address] [place] [address] Apr, [place] [address] [facility] [id number] [address] [place] [address] Apr, Prediabetes R73.03 ; Raynaud s disease I73.00 ; Venous insufficiency I87.2 ; Neuropathy G62.9 and Dysthymia F34.1 [facility] [address] [facility] [id number] [address] [place] [address] March, [facility] [address] [facility] [id number] [address] [place] [address] Sep, Hyperglycemia R73.9 [facility] [address] [facility] [id number] [address] [place] [address] Sep, Hyperglycemia R73.9 [facility] [address] [facility] [id number] [address] [place] [address] Sep, Raynauds disease I73.00 ; Ve nous insufficiency I87.2 and Encounter for immunization Z23 [facility] [address] [facility] [id number] [address] [place] [address] Jun, [facility] [address] [facility] [id number] [address] [place] [address] May, [facility] [address] [id number] [address] [place] [address] May, Other chronic pain G89.29 [facility] [address] [facility] [id number] [address] [place] [address] 03 May, 2017 Raynauds disease I73.00 ; Ve nous insufficiency I87.2 and Low back pain M54.5 [facility] [address] [facility] [id number] [address] [place] [address] 13 Dec, 2016 Raynauds disease I73.00 ; Ve nous insufficiency I87.2 ; Low back pain M54.5 and Other chronic pain G89.29 [facility] [address] [facility] [id number] [address] [place] [address] Nov, [facility] [address] [facility] [id number] [address] [place] [address] Nov, Muscle spasm M62.838 [facility] [address] [id number] [address] [place] [phone] Nov, [facility] [address] [id number] [address] [place] [address] Oct, Folliculitis L73.9 and Venou s insufficiency I87.2 [place] [address] [facility] [id number] [address] [place] [address] Sep, Dermatitis L30.9 and Raynaud s disease I73.00 [facility] [address] [facility] [id number] [address] [place] [address] Sep, Rash and nonspecific skin er uption R21 [facility] [address] [facility] [id number] [address] [place] [address] Aug, Skin infection L08.9 [place] [address] [id number] [address] [place] [phone] 18 May, 2016 Infected smith L08.9 [facility] [address] [id number] [address] [place] [address] May, Skin infection L08.9 [place] [address] [id number] [address] [place] [address] Dec, [facility] [address] [facility] [id number] [address] [place] [address] Nov, [facility] [address] [facility] [id number] [address] [place] [address] Nov, [facility] [address] [facility] [id number] [address] [place] [address] Nov, Raynauds disease I73.00 [facility] [address] [facility] [id number] [address] [place] [address] Nov, Raynauds disease I73.00 ; Le g cramps R25.2 ; Venous insufficiency I87.2 and Routine adult health maintenance Z00.00 [facility] [address] [facility] [id number] [address] [place] [address] Jul, Infected sebaceous cyst 706. 2 [facility] [address] [facility] [id number] [address] [place] [address] Jun, [facility] [address] [facility] [id number] [address] [place] [address] Jun, [facility] [address] [id number] [address] [place] [phone] Jun, Venous insufficiency 459.81 and Raynauds disease 443.0 [facility] [address] [facility] [id number] [address] [place] [phone] Feb, [facility] [address] [facility] [id number] [address] [place] [phone] Feb, [facility] [address] [facility] [id number] [address] [place] [address] Jan, [facility] [address] [facility] [id number] [address] [place] [phone] Jan, [facility] [address] [facility] [id number] [address] [place] [phone] Dec, 2014 [facility] [address] [id number] [address] [place] [address], [place] [address] Dec, [facility] [address] [id number] [address] [place] [address], [place] [address] Dec, [facility] [address] [id number] [address] [place] [address], [place] [address] Dec, [facility] [address] [id number] [address] [place] [address], [place] [address] Nov, [facility] [address] [id number] [address] [place] [address], [place] [address] Nov, [facility] [address] [id number] [address] [place] [address], [place] [address] Oct, [facility] [address] [id number] [address] [place] [address], [place] [address] Oct, [facility] [address] [id number] [address] [place] [address], [place] [address] Aug, [facility] [address] [id number] [address] [place] [address], [place] [address] Aug, [facility] [address] [id number] [address] [place] [address], [place] [address] Aug, [facility] [address] [id number] [address] [place] [address], [place] [address] Jul, [facility] [address] [id number] [address] [place] [address], [place] [address] Jul, [facility] [address] [id number] [address] [place] [address], [place] [address] Jul, [facility] [address] [id number] [address] [place] [address], [place] [address] Jul, [facility] [address] [id number] [address] [place] [address], [place] [address] Jun, [facility] [address] [id number] [facility] [place] [place] [address] Jun, [facility] [address] [id number] [facility] [place] [address] Jun, [facility] [address] [id number] [facility] [place] [place] [address] Jun, [facility] [address] [id number] [address] [place] [address], [place] [address] May, [facility] [address] [id number] [address] [place] [address], [place] [address] May, [facility] [address] [id number] [address] [place] [address], [place] [address] May, [facility] [address] [id number] [address] [place] [address], [place] [address] May, [facility] [address] [id number] [address] [place] [address], [place] [address] May, [facility] [address] [id number] [address] [place] [address], [place] [address] May, [facility] [address] [id number] [address] [place] [address], [place] [address] May, [facility] [address] [id number] [address] [place] [address], [place] [address] Apr, [facility] [address] [id number] [address] [place] [address], [place] [address] Apr, [facility] [address] [id number] [address] [place] [address], [place] [address] Apr, [facility] [address] [id number] [address] [place] [address], [place] [address] Apr, [facility] [address] [id number] [address] [place] [address], [place] [address] March, [facility] [address] [id number] [address] [place] [address], [place] [address] March, [facility] [address] [id number] [address] [place] [address], [place] [address] March, [facility] [address] [id number] [address] [place] [address], [place] [address] March, [facility] [address] [id number] [address] [place] [address], [place] [address] March, [facility] [address] [id number] [address] [place] [address], [place] [address] March, [facility] [address] [id number] [address] [place] [address], [place] [address] March, [facility] [address] [id number] [address] [place] [address], [place] [address] Feb, [facility] [address] [id number] [address] [place] [address], [place] [address] Feb, [address] [id number] Feb, [facility] [address] [id number] [address] [place] [address], [place] [address] Feb, [facility] [address] [id number] [address] [place] [address], [place] [address] Feb, [facility] [address] [id number] [address] [place] [address], [place] [address] Feb, [facility] [address] [id number] [address] [place] [address], [place] [address] Jan, [facility] [address] [id number] [address] [place] [address], [place] [address] Jan, [facility] [address] [id number] [address] [place] [address], [place] [address] Jan, [facility] [address] [id number] [address] [place] [address], [place] [address] Jan, [facility] [address] [id number] [address] [place] [address], [place] [address] Jan, [facility] [address] [id number] [facility] [place] [address] Jan, [facility] [address] [id number] [facility] [place] [address] Jan, [facility] [address] [id number] [facility] [place] [address] Jan, [facility] [address] [id number] [facility] [place] [address] Jan, [facility] [address] [id number] [facility] [place] [address] Jan, [facility] [address] [id number] [address] [place] [address], [place] [address] Jan, [facility] [address] [id number] [address] [place] [address], [place] [address] Jan, [facility] [address] [id number] [address] [place] [address], [place] [address] Jan, [facility] [address] [id number] [address] [place] [address], [place] [address] Jan, [facility] [address] [id number] [address] [place] [address], [place] [address] Jan, [facility] [address] [id number] [address] [place] [address], [place] [address] Jan, [facility] [address] [id number] [address] [place] [address], [place] [address] Jan, [facility] [address] [id number] [address] [place] [address], [place] [address] Jan, [facility] [address] [id number] [address] [place] [address], [place] [address] Dec, [facility] [address] [id number] [address] [place] [address], [place] [address] Dec, [facility] [address] [id number] [address] [place] [address], [place] [address] 17 Dec, 2013 [facility] [address] [id number] [address] [place] [address], [place] [address] Dec, 2013 [facility] [address] [id number] [address] [place] [address], [place] [address] 14 Dec, 2013 [facility] [address] [id number] [address] [place] [address], [place] [address] Dec, 2013 [facility] [address] [id number] [address] [place] [address], [place] [address] Dec, [facility] [address] [id number] [address] [place] [address], [place] [address] Dec, [facility] [address] [id number] [address] [place] [address], [place] [address] Dec, [facility] [address] [id number] [address] [place] [address], [place] [address] Dec, [facility] [address] [id number] [address] [place] [address], [place] [address] Dec, [facility] [address] [id number] [address] [place] [address], [place] [address] Dec, [facility] [address] [id number] [address] [place] [address], [place] [address] Nov, [facility] [address] [id number] [address] [place] [address], [place] [address] Nov, [facility] [address] [id number] [address] [place] [address], [place] [address] Nov, [facility] [address] [id number] [address] [place] [address], [place] [address] Nov, [facility] [address] [id number] [address] [place] [address], [place] [address] Nov, [facility] [address] [id number] [address] [place] [address], [place] [address] Nov, [facility] [address] [id number] [address] [place] [address], [place] [address] Nov, [facility] [address] [id number] [address] [place] [address], [place] [address] Oct, [facility] [address] [id number] [address] [place] [address], [place] [address] Oct, [facility] [address] [id number] [address] [place] [address], [place] [address] Sep, [facility] [address] [id number] [address] [place] [address], [place] [address] Sep, [facility] [address] [id number] [address] [place] [address], [place] [address] Sep, [facility] [address] [id number] [address] [place] [address], [place] [address] Sep, [facility] [address] [id number] [address] [place] [address], [place] [address] Aug, [facility] [address] [id number] [address] [place] [address], [place] [address] Aug, [facility] [address] [id number] [address] [place] [address], [place] [address] Aug, [facility] [address] [id number] [address] [place] [address], [place] [address] Jul, [facility] [address] [id number] [address] [place] [address], [place] [address] Jul, [facility] [address] [id number] [address] [place] [address], [place] [address] Jun, [facility] [address] [id number] [address] [place] [address], [place] [address] Jun, [facility] [address] [id number] [address] [place] [address], [place] [address] Jun, [facility] [address] [id number] [address] [place] [address], [place] [address] 08 May, 2013 [facility] [address] [id number] [address] [place] [address], [place] [address] May, [facility] [address] [id number] [address] [place] [address], [place] [address] May, [facility] [address] [id number] [address] [place] [address], [place] [address] Apr, [facility] [address] [id number] [address] [place] [address], [place] [address] Apr, [facility] [address] [id number] [address] [place] [address], [place] [address] March, [facility] [address] [id number] [address] [place] [address], [place] [address] Feb, [facility] [address] [id number] [address] [place] [address], [place] [address] Jan, [facility] [address] [id number] [address] [place] [address], [place] [address] Jan, [facility] [address] [id number] [address] [place] [address], [place] [address] Dec, [facility] [address] [id number] [address] [place] [address], [place] [address] Nov, [facility] [address] [id number] [address] [place] [address], [place] [id number] Oct, [facility] [address] [id number] [address] [place] [address], [place] [id number] Oct, [facility] [address] [id number] [address] [place] [address], [place] [id number] Sep, [facility] [address] [id number] [address] [place] [address], [place] [id number] Sep, [facility] [address] [id number] [address] [place] [address], [place] [id number] Sep, [facility] [address] [id number] [address] [place] [address], [place] [id number] 28 Sep, 2012 [facility] [address] [id number] [address] [place] [address], [place] [id number] 13 Sep, 2012 [facility] [address] [id number] [address] [place] [address], [place] [id number] 13 Sep, 2012 [facility] [address] [id number] [address] [place] [address], [place] [id number] Sep, [facility] [address] [id number] [address] [place] [address], [place] [id number] Sep, [facility] [address] [id number] [address] [place] [address], [place] [id number] 04 Jul, 2012 [facility] [address] [id number] [address] [place] [address], [place] [id number] Jun, [facility] [address] [id number] [address] [place] [address], [place] [id number] Jun, [facility] [address] [id number] [address] [place] [address], [place] [id number] Jun, [facility] [address] [id number] [address] [place] [address], [place] [id number] Jun, [facility] [address] [id number] [address] [place] [address], [place] [id number] May, [facility] [address] [id number] [address] [place] [address], [place] [id number] Apr, [facility] [address] [id number] [address] [place] [address], [place] [id number] Jan, [facility] [address] [id number] [address] [place] [address], [place] [id number] 14 Dec, 2011 [facility] [address] [id number] [address] [place] [address], [place] [id number] 10 Dec, 2011 [facility] [address] [id number] [address] [place] [address] [place] [id number] 27 Nov, 2011 [facility] [address] [id number] [address] [place] [address], [place] [id number] 19 Oct, 2011 [facility] [address] [id number] [address] [place] [address], [place] [id number] 19 Oct, 2011 [facility] [address] [id number] [address] [place] [address], [place] [id number] 18 Aug, 2011 [facility] [address] [id number] [address] [place] [address], [place] [id number] 18 Aug, 2011 [facility] [address] [id number] [address] [place] [address], [place] [id number] 18 Aug, 2011 [facility] [address] [id number] [address] [place] [address], [place] [id number] 14 Aug, 2011 [facility] [address] [id number] [address] [place] [address], [place] [id number] 11 Aug, 2011 [facility] [address] [id number] [address] [place] [address], [place] [id number] 11 Aug, 2011 [facility] [address] [id number] [address] [place] [address], [place] [id number] May, [facility] [address] [id number] [address] [place] [address], [place] [id number] 13 Apr, 2011 [facility] [address] [id number] [address] [place] [address], [place] [id number] 18 Feb, 2011 [facility] [address] [id number] [address] [place] [address], [place] [id number] Oct, [facility] [address] [id number] [address] [place] [address], [place] [id number] Oct, [facility] [address] [id number] [address] [place] [address], [place] [id number] 07 Oct, 2010 [facility] [address] [id number] [address] [place] [address], [place] [id number] Sep, [facility] [address] [id number] [address] [place] [id number] Aug, [facility] [address] [id number] [address] [place] [id number] 16 Jul, 2010 [facility] [address] [id number] [address] [place] [id number] 13 May, 2010 [facility] [address] [id number] [address] [place] [id number] Dec, [facility] [address] [id number] [address] [place] [id number] Nov, [facility] [address] [id number] [address] [place] [id number] Oct, [facility] [address] [id number] [address] [place] [id number] Sep, [facility] [address] [address] [id number] [address] [place] [id number] Sep, [facility] [address] [id number] [address] [place] [id number] 14 Jul, 2009 [facility] [address] [id number] [address] [place] [id number] Jun, [facility] [address] [id number] [address] [place] [phone] May, IMMUNIZATIONS No Known Immunizations SOCIAL HISTORY Never Assessed REASON FOR VISIT PLAN OF CARE VITAL SIGNS Height 73 in 2014-08-18 Weight 219.3 lbs 2014-08-18 Temperature 96.9 degrees Fahrenheit 2014-08-18 Heart Rate 80 bpm 2014-08-18 Respiratory Rate 20 2014-08-18 Blood pressure systolic 120 mmHg 2014-08-18 Blood pressure diastolic 74 mmHg 2014-08-18 MEDICATIONS Unknown Medications RESULTS No Results PROCEDURES Procedure Date Ordered Result Body Site BASIC METABOLIC PANEL Aug 18, 2014 VENIPUNCT, ROUTINE* Aug 18, 2014 INSTRUCTIONS MEDICATIONS ADMINISTERED No Known Medications MEDICAL (GENERAL) HISTORY Type Description Date Medical History Hearing loss congenital deafness Medical History 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
--- OUTSIDE RECORDS SUMMARY | 2020-06-11 20:59 | XMS REPORT ---
Author Author Jd Fagan r Organization [facility] Address Unknown Phone Unavailable Care Team Providers Care Driller Brake Lining Name Role Phone Migration, Doctor Unavailable Unavailable PROBLEMS Type Condition ICD9-CM Code [id number] Code Onset Dates Condition S tatus SNOMED Code Problem Raynauds disease I73.00 Active 195 459556 Problem Venous insufficiency I87.2 Active 27730299 Problem Neuropathy G62.9 Active 925534340 Problem Hypokalemia E87.6 Active 33005455 Problem Other chronic pain G89.29 Active 8 1608584 Problem Low back pain M54.5 Active 982889 009 Problem Congenital deafness H90.5 Active 97296834 Problem Dysthymia F34.1 Active [id number] ALLERGIES No Information ENCOUNTERS Encounter Location Date Diagnosis [facility] [id number] [address] [place] [address] Jan, Abscess of left knee L02.416 [facility] [address] [id number] [address] [place] [address] Jan, Prediabetes R73.03 ; Raynaud s disease I73.00 and Venous insufficiency I87.2 [facility] [id number] [address] [place] [address] Oct, Neuropathy G62.9 ; Low back pain M54.5 and URI (upper respiratory infection) J06.9 [facility] [id number] [address] [place] [address] Jul, Raynauds disease I73.00 and Hypokalemia E87.6 [facility] [id number] [address] [place] [address] May, Medicare annual wellness vis it, initial Z00.00 ; Dysthymia F34.1 ; Raynauds disease I73.00 ; Venous insufficiency I87.2 ; Congenital deafness H90.5 and Neuropathy G62.9 [place] [id number] [place] [address] Apr, [place] [id number] [place] [address] Apr, Prediabetes R73.03 ; Raynaud s disease I73.00 ; Venous insufficiency I87.2 ; Neuropathy G62.9 and Dysthymia F34.1 [place] [id number] [address] [place] [address] March, [place] [address] [address] Sep, Hyperglycemia R73.9 [place] [id number] [place] [address] Sep, Hyperglycemia R73.9 [place] [address] [address] Sep, Raynauds disease I73.00 ; Ve nous insufficiency I87.2 and Encounter for immunization Z23 [place] [id number] [place] [address] Jun, [place] [id number] [place] [address] May, [place] [address] [address] May, Other chronic pain G89.29 [place] [id number] [place] [address] May, Raynauds disease I73.00 ; Ve nous insufficiency I87.2 and Low back pain M54.5 [place] [id number] [place] [address] 13 Dec, 2016 Raynauds disease I73.00 ; Ve nous insufficiency I87.2 ; Low back pain M54.5 and Other chronic pain G89.29 [facility] [address] [facility] [id number] [address] [place] [address] 18 Nov, 2016 [facility] [address] [facility] [id number] [address] [place] [address] Nov, Muscle spasm M62.838 [facility] [id number] [address] [place] [address] 16 Nov, 2016 [facility] [id number] [address] [place] [address] Oct, Folliculitis L73.9 and Venou s insufficiency I87.2 [facility] [id number] [address] [place] [address] Sep, Dermatitis L30.9 and Raynaud s disease I73.00 [facility] [id number] [address] [place] [address] Sep, Rash and nonspecific skin er uption R21 [facility] [address] [facility] [id number] [address] [place] [address] Aug, Skin infection L08.9 [facility] [id number] [address] [place] [address] May, Infected smith L08.9 [facility] [id number] [address] [place] [address] May, Skin infection L08.9 [facility] [id number] [address] [place] [address] Dec, [facility] [address] [facility] [id number] [address] [place] [address] Nov, [facility] [id number] [address] [place] [address] Nov, [facility] [id number] [address] [place] [address] Nov, Raynauds disease I73.00 [facility] [address] [facility] [id number] [address] [place] [address] Nov, Raynauds disease I73.00 ; Le g cramps R25.2 ; Venous insufficiency I87.2 and Routine adult health maintenance Z00.00 [facility] [address] [facility] [id number] [address] [place] [address] Jul, Infected sebaceous cyst 706. 2 [facility] [address] [id number] [address] [place] [address] Jun, [facility] [address] [facility] [id number] [address] [place] [address] Jun, [facility] [address] [facility] [id number] [address] [place] [address] Jun, Venous insufficiency 459.81 and Raynauds disease 443.0 [facility] [address] [facility] [id number] [address] [place] [address] Feb, [facility] [address] [facility] [id number] [address] [place] [address] Feb, [facility] [address] [facility] [id number] [address] [place] [address] Jan, [facility] [address] [facility] [id number] [address] [place] [address] Jan, [facility] [address] [facility] [id number] [address] [place] [address] Dec, [facility] [address] [facility] [id number] [address] [place] [address] Dec, [facility] [address] [facility] [id number] [address] [place] [address] Dec, [facility] [address] [facility] [id number] [address] [place] [address] Dec, [facility] [address] [facility] [id number] [address] [place] [address] Nov, [facility] [address] [id number] [address] [place] [address], [place] [address] Nov, [facility] [address] [id number] [address] [place] [address], [place] [address] Oct, [facility] [address] [id number] [address] [place] [address], [place] [address] Oct, [facility] [place] [facility] [address] [id number] [address] [place] [address], [place] [address] Aug, [facility] [address] [id number] [address] [place] [address], [place] [address] Aug, [facility] [address] [id number] [address] [place] [address], [place] [address] Aug, [facility] [address] [id number] [address] [place] [address], [place] [address] Jul, [facility] [place] [facility] [address] [id number] [address] [place] [address], [place] [address] Jul, [facility] [address] [id number] [address] [place] [address], [place] [address] Jul, [facility] [place] [facility] [address] [id number] [address] [place] [address], [place] [address] Jul, [facility] [place] [facility] [address] [id number] [address] [place] [address], [place] [address] Jun, [facility] [place] [facility] [address] [id number] [address] [place] [address], [place] [address] Jun, [facility] [place] [facility] [address] [id number] [address] [place] [address], [place] [address] Jun, [facility] [place] [facility] [address] [id number] [address] [place] [address], [place] [address] Jun, [facility] [place] [facility] [address] [id number] [address] [place] [address], [place] [address] May, [facility] [place] [facility] [address] [id number] [facility] [place] [address] May, [facility] [address] [id number] [facility] [place] [address] May, [facility] [address] [id number] [facility] [place] [address] 15 May, 2014 [facility] [address] [id number] [address] [place] [address], [place] [address] May, [facility] [address] [id number] [address] [place] [address], [place] [address] May, [facility] [address] [id number] [address] [place] [address], [place] [address] May, [facility] [address] [id number] [address] [place] [address], [place] [address] Apr, [facility] [address] [id number] [address] [place] [address], [place] [address] Apr, [facility] [address] [id number] [address] [place] [address], [place] [address] Apr, [facility] [address] [id number] [address] [place] [address], [place] [address] Apr, [facility] [address] [id number] [address] [place] [address], [place] [address] March, [facility] [address] [id number] [address] [place] [address], [place] [address] March, [facility] [address] [id number] [address] [place] [address], [place] [address] March, [facility] [address] [id number] [address] [place] [address], [place] [address] March, [facility] [address] [id number] [address] [place] [address], [place] [address] March, [facility] [address] [id number] [address] [place] [address], [place] [address] March, [facility] [address] [id number] [address] [place] [address], [place] [address] March, [facility] [address] [id number] [address] [place] [address], [place] [address] Feb, [facility] [address] [id number] [address] [place] [address], [place] [address] Feb, [facility] [address] [place] [id number] Feb, [facility] [address] [id number] [address] [place] [address], [place] [address] Feb, [facility] [address] [id number] [address] [place] [address], [place] [address] Feb, [facility] [address] [id number] [address] [place] [address], [place] [address] Feb, [facility] [address] [id number] [address] [place] [address], [place] [address] Jan, [facility] [address] [id number] [address] [place] [address], [place] [address] Jan, [facility] [address] [id number] [address] [place] [address], [place] [address] Jan, [facility] [address] [id number] [address] [place] [address], [place] [address] Jan, [facility] [address] [id number] [address] [place] [address], [place] [address] Jan, [facility] [address] [id number] [address] [place] [address], [place] [address] Jan, [facility] [address] [id number] [address] [place] [address], [place] [address] Jan, [facility] [address] [id number] [address] [place] [address], [place] [address] Jan, [facility] [address] [id number] [address] [place] [address], [place] [address] Jan, [facility] [place] [facility] [address] [id number] [facility] [place] [address] Jan, [facility] [place] [facility] [address] [id number] [facility] [place] [address] Jan, [facility] [place] [facility] [address] [id number] [facility] [place] [address] 17 Jan, 2014 [facility] [place] [facility] [address] [id number] [address] [place] [address], [place] [address] Jan, [facility] [place] [facility] [address] [id number] [facility] [place] [address] Jan, [facility] [place] [facility] [address] [id number] [address] [place] [address], [place] [address] Jan, [facility] [place] [facility] [address] [id number] [address] [place] [address], [place] [address] Jan, [facility] [place] [facility] [address] [id number] [address] [place] [address], [place] [address] Jan, [facility] [place] [facility] [address] [id number] [address] [place] [address], [place] [address] Jan, [facility] [place] [facility] [address] [id number] [address] [place] [address], [place] [address] Dec, [facility] [place] [facility] [address] [id number] [address] [place] [address], [place] [address] Dec, [facility] [place] [facility] [address] [id number] [address] [place] [address], [place] [address] Dec, [facility] [place] [facility] [address] [id number] [address] [place] [address], [place] [address] Dec, [facility] [place] [facility] [address] [id number] [address] [place] [address], [place] [address] 14 Dec, 2013 [facility] [place] [facility] [address] [id number] [address] [place] [address], [place] [address] 07 Dec, 2013 [facility] [place] [facility] [address] [id number] [address] [place] [address], [place] [address] 07 Dec, 2013 [facility] [address] [id number] [address] [place] [address], [place] [address] Dec, [facility] [address] [id number] [address] [place] [address], [place] [address] Dec, [facility] [address] [id number] [address] [place] [address], [place] [address] Dec, [facility] [address] [id number] [address] [place] [address], [place] [address] Dec, [facility] [address] [id number] [address] [place] [address], [place] [address] Dec, [facility] [address] [id number] [address] [place] [address], [place] [address] Nov, [facility] [address] [id number] [address] [place] [address], [place] [address] Nov, [facility] [address] [id number] [address] [place] [address], [place] [address] Nov, [facility] [address] [id number] [address] [place] [address], [place] [address] Nov, [facility] [address] [id number] [address] [place] [address], [place] [address] Nov, [facility] [address] [id number] [address] [place] [address], [place] [address] Nov, [facility] [address] [id number] [address] [place] [address], [place] [address] Nov, [facility] [address] [id number] [address] [place] [address], [place] [address] Oct, [facility] [place] [facility] [address] [id number] [address] [place] [address], [place] [address] Oct, [facility] [address] [id number] [address] [place] [address], [place] [address] Sep, [facility] [address] [id number] [address] [place] [address], [place] [address] Sep, [facility] [address] [id number] [address] [place] [address], [place] [address] Sep, [facility] [address] [id number] [address] [place] [address], [place] [address] Sep, [facility] [address] [id number] [address] [place] [address], [place] [address] Aug, [facility] [address] [id number] [address] [place] [address], [place] [address] Aug, [facility] [address] [id number] [address] [place] [address], [place] [address] Aug, [facility] [address] [id number] [address] [place] [address], [place] [address] Jul, [facility] [address] [id number] [address] [place] [address], [place] [address] Jul, [facility] [address] [id number] [address] [place] [address], [place] [address] Jun, [facility] [address] [id number] [address] [place] [address], [place] [address] Jun, [facility] [address] [id number] [address] [place] [address], [place] [address] Jun, [facility] [place] [facility] [address] [id number] [address] [place] [address] May, [facility] [place] [facility] [address] [id number] [address] [place] [address], [place] [address] May, [facility] [place] [facility] [address] [id number] [address] [place] [address], [place] [address] May, [facility] [place] [facility] [address] [id number] [address] [place] [address], [place] [address] Apr, [facility] [place] [facility] [address] [id number] [address] [place] [address], [place] [address] 18 Apr, 2013 [facility] [address] [id number] [address] [place] [address], [place] [address] March, [facility] [address] [id number] [address] [place] [address], [place] [address] Feb, [facility] [address] [id number] [address] [place] [address], [place] [address] Jan, [facility] [address] [id number] [address] [place] [address], [place] [address] Jan, [facility] [address] [id number] [address] [place] [address], [place] [address] 07 Dec, 2012 [facility] [address] [id number] [address] [place] [address], [place] [address] Nov, [facility] [address] [id number] [address] [place] [address], [place] [address] Oct, [facility] [address] [id number] [address] [place] [address], [place] [address] Oct, [facility] [address] [id number] [address] [place] [address], [place] [address] [address], [address] [facility] [address] [id number] [address] [place] [address], [place] [address] 29 Sep, 2012 [facility] [address] [id number] [address] [place] [address], [place] [address] [address], [address] [facility] [address] [id number] [address] [place] [address], [place] [address] 28 Sep, 2012 [facility] [address] [id number] [address] [place] [address], [place] [address] [address], [address] [facility] [address] [id number] [address] [place] [address], [place] [address] 13 Sep, 2012 [facility] [address] [id number] [address] [place] [address], [place] [address] Sep, [facility] [address] [id number] [address] [place] [address], [place] [address] Sep, [facility] [address] [id number] [address] [place] [address], [place] [address] Jul, [facility] [address] [id number] [address] [place] [address], [place] [address] Jun, [facility] [address] [id number] [address] [place] [address], [place] [address] Jun, [facility] [address] [id number] [address] [place] [address], [place] [address] Jun, [facility] [address] [id number] [address] [place] [address], [place] [address] Jun, [facility] [address] [id number] [address] [place] [address], [place] [address] May, [facility] [address] [id number] [address] [place] [address], [place] [address] Apr, [facility] [address] [id number] [address] [place] [address], [place] [address] Jan, [facility] [address] [id number] [address] [place] [address], [place] [address] Dec, [facility] [address] [id number] [address] [place] [address], [place] [address] Dec, [facility] [address] [id number] [address] [place] [address], [place] [address] Nov, [facility] [address] [id number] [address] [place] [address], [place] [address] Oct, [facility] [place] [facility] [address] [id number] [address] [place] [address], [place] [address] Oct, [facility] [place] [facility] [address] [id number] [address] [place] [address], [place] [address] Aug, [facility] [address] [id number] [address] [place] [address], [place] [address] 18 Aug, 2011 [facility] [address] [id number] [address] [place] [address], [place] [address] 18 Aug, 2011 [facility] [address] [id number] [address] [place] [address], [place] [address] 14 Aug, 2011 [facility] [address] [id number] [address] [place] [address], [place] [address] 11 Aug, 2011 [facility] [address] [id number] [address] [place] [address], [place] [address] 11 Aug, 2011 [facility] [address] [id number] [address] [place] [address], [place] [address] 19 May, 2011 [facility] [address] [id number] [address] [place] [address], [place] [address] Apr, [facility] [address] [id number] [address] [place] [address], [place] [address] 18 Feb, 2011 [facility] [address] [id number] [address] [place] [address], [place] [address] Oct, [facility] [address] [id number] [address] [place] [address], [place] [address] Oct, [facility] [address] [id number] [address] [place] [address], [place] [address] Oct, [facility] [address] [id number] [address] [place] [address], [place] [address] 09 Sep, 2010 [facility] [address] [id number] [address] [place] [address], [place] [address] 26 Aug, 2010 [facility] [address] [id number] [address] [place] [address], [place] [address] 16 Jul, 2010 [facility] [place] [facility] [address] [id number] [address] [place] [address], [place] [address] 13 May, 2010 [facility] [address] [id number] [address] [place] [address], [place] [address] Dec, [facility] [address] [id number] [address] [place] [id number] Nov, [facility] [address] [id number] 07 [place] [id number] Oct, [facility] [address] [id number] [address] [place] [id number] Sep, [facility] [address] [facility] [id number] [address] [place] [phone] Sep, [facility] [address] [facility] [id number] [address] [place] [id number] Jul, [facility] [address] [facility] [id number] [address] [place] [phone] Jun, [facility] [address] [facility] [id number] [address] [place] [phone] May, IMMUNIZATIONS No Known Immunizations SOCIAL HISTORY Never Assessed REASON FOR VISIT [facility] PLAN OF CARE VITAL SIGNS MEDICATIONS No [...]
--- OUTSIDE RECORDS SUMMARY | 2020-06-11 20:59 | XMS REPORT ---
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 Name Role Phone PAULA ROBLEDO Unavailable PROBLEMS Type Condition ICD9-CM Code DPS43-EA Code Onset Dates Condition S tatus SNOMED Code Problem Raynauds disease I73.00 Active 195 898453 Problem Venous insufficiency I87.2 Active 01622908 Problem Neuropathy G62.9 Active 370127491 Problem Hypokalemia E87.6 Active 38622394 Problem Other chronic pain G89.29 Active 8 0538641 Problem Low back pain M54.5 Active 947054 009 Problem Congenital deafness H90.5 Active 95938086 Problem Dysthymia F34.1 Active 68791339 ALLERGIES No Information ENCOUNTERS Encounter Location Date Diagnosis [facility] [id number] [place] [address] Jan, Abscess of left knee L02.416 [facility] [address] [facility] [id number] [address] [place] [address] Jan, Prediabetes R73.03 ; Raynaud s disease I73.00 and Venous insufficiency I87.2 [facility] [address] [facility] [id number] [address] [place] [address] Oct, Neuropathy G62.9 ; Low back pain M54.5 and URI (upper respiratory infection) J06.9 [facility] [id number] [address] [place] [address] Jul, Raynauds disease I73.00 and Hypokalemia E87.6 [facility] [id number] [address] [place] [address] May, Medicare annual wellness vis it, initial Z00.00 ; Dysthymia F34.1 ; Raynauds disease I73.00 ; Venous insufficiency I87.2 ; Congenital deafness H90.5 and Neuropathy G62.9 [place] [id number] [place] [address] Apr, [place] [id number] [id number] [place] [address] Apr, Prediabetes R73.03 ; Raynaud s disease I73.00 ; Venous insufficiency I87.2 ; Neuropathy G62.9 and Dysthymia F34.1 [place] [id number] [address] [place] [address] March, [place] [id number] [place] [address] Sep, Hyperglycemia R73.9 [place] [address] [address] Sep, Hyperglycemia R73.9 [place] [address] [id number] [place] [address] Sep, Raynauds disease I73.00 ; Ve nous insufficiency I87.2 and Encounter for immunization Z23 [place] [id number] [id number] [place] [address] Jun, [place] [id number] [place] [address] May, [place] [id number] [place] [address] May, Other chronic pain G89.29 [place] [id number] [place] [address] May, Raynauds disease I73.00 ; Ve nous insufficiency I87.2 and Low back pain M54.5 [place] [address] [id number] [place] [address] 13 Feb, 2017 Raynauds disease I73.00 ; Ve nous insufficiency I87.2 ; Low back pain M54.5 and Other chronic pain G89.29 [facility] [address] [facility] [id number] [address] [place] [address] 18 Nov, 2016 [facility] [address] [facility] [id number] [address] [place] [address] Nov, Muscle spasm M62.838 [facility] [id number] [address] [place] [address] 16 Nov, 2016 [facility] [id number] [place] [address] Oct, Folliculitis L73.9 and Venou s insufficiency I87.2 [facility] [id number] [place] [address] Sep, Dermatitis L30.9 and Raynaud s disease I73.00 [facility] [id number] [place] [address] Sep, Rash and nonspecific skin er uption R21 [facility] [address] [address] Aug, Skin infection L08.9 [facility] [id number] [address] [place] [address] May, Infected smith L08.9 [facility] [id number] [place] [address] May, Skin infection L08.9 [facility] [id number] [address] [place] [address] Dec, [facility] [id number] [place] [address] Nov, [facility] [id number] [address] [place] [address] Nov, [facility] [address] [address] Nov, Raynauds disease I73.00 [facility] [address] [facility] [id number] [address] [place] [address] Nov, Raynauds disease I73.00 ; Le g cramps R25.2 ; Venous insufficiency I87.2 and Routine adult health maintenance Z00.00 [facility] [address] [facility] [id number] [address] [place] [address] Jul, Infected sebaceous cyst 706. 2 [facility] [address] [facility] [id number] [address] [place] [address] Jun, [facility] [address] [facility] [id number] [address] [place] [address] Jun, [facility] [address] [facility] [id number] [address] [place] [address] Jun, Venous insufficiency 459.81 and Raynauds disease 443.0 [facility] [address] [facility] [id number] [address] [place] [address] Feb, [facility] [address] [facility] [id number] [address] [place] [phone] Feb, [facility] [address] [facility] [id number] [address] [place] [address] Jan, [facility] [address] [facility] [id number] [address] [place] [address] Jan, [facility] [address] [facility] [id number] [address] [place] [phone] Dec, [facility] [address] [facility] [id number] [address] [place] [phone] Dec, [facility] [address] [facility] [id number] [address] [place] [phone] Dec, [facility] [address] [facility] [id number] [address] [place] [phone] Dec, [facility] [address] [id number] [address] [place] [address], [place] [address] Nov, [facility] [address] [id number] [address] [place] [address], [place] [address] Nov, [facility] [address] [id number] [address] [place] [address], [place] [address] Oct, [facility] [address] [id number] [address] [place] [address], [place] [address] Oct, [facility] [address] [id number] [address] [place] [address], [place] [address] Aug, [facility] [address] [id number] [address] [place] [address], [place] [address] Aug, [facility] [address] [id number] [address] [place] [address], [place] [address] Aug, [facility] [address] [id number] [address] [place] [address], [place] [address] Jul, [facility] [address] [id number] [address] [place] [address], [place] [address] Jul, [facility] [address] [id number] [address] [place] [address], [place] [address] Jul, [facility] [address] [id number] [address] [place] [address], [place] [address] Jul, [facility] [address] [id number] [address] [place] [address] Jun, [facility] [address] [id number] [address] [place] [address], [place] [address] Jun, [facility] [address] [id number] [address] [place] [address], [place] [address] Jun, [facility] [address] [id number] [address] [place] [address] Jun, [facility] [address] [id number] [address] [place] [address], [place] [address] May, [facility] [address] [id number] [facility] [place] [address] May, [facility] [address] [id number] [address] [place] [address], [place] [address] May, [facility] [address] [id number] [address] [place] [address], [place] [address] 15 May, 2014 [facility] [address] [id number] [address] [place] [address], [place] [address] May, [facility] [address] [id number] [address] [place] [address], [place] [address] May, [facility] [address] [id number] [address] [place] [address], [place] [address] May, [facility] [address] [id number] [address] [place] [address], [place] [address] Apr, [facility] [address] [id number] [address] [place] [address], [place] [address] Apr, [facility] [address] [id number] [address] [place] [address], [place] [address] Apr, [facility] [address] [id number] [address] [place] [address], [place] [address] Apr, [facility] [address] [id number] [address] [place] [address], [place] [address] March, [facility] [address] [id number] [address] [place] [address], [place] [address] March, [facility] [address] [id number] [address] [place] [address], [place] [address] March, [facility] [address] [id number] [address] [place] [address], [place] [address] March, [facility] [address] [id number] [address] [place] [address], [place] [address] March, [facility] [address] [id number] [address] [place] [address], [place] [address] March, [facility] [address] [id number] [address] [place] [address], [place] [address] March, [facility] [address] [id number] [address] [place] [address], [place] [address] Feb, [facility] [address] [id number] [address] [place] [address], [place] [address] Feb, [facility] [address] [place] [id number] Feb, [facility] [address] [id number] [address] [place] [address], [place] [address] Feb, [facility] [address] [id number] [address] [place] [address], [place] [address] Feb, [facility] [address] [id number] [address] [place] [address], [place] [address] Feb, [facility] [address] [id number] [address] [place] [address], [place] [address] Jan, [facility] [address] [id number] [address] [place] [address], [place] [address] Jan, [facility] [address] [id number] [address] [place] [address], [place] [address] Jan, [facility] [address] [id number] [address] [place] [address], [place] [address] Jan, [facility] [address] [id number] [address] [place] [address], [place] [address] Jan, [facility] [address] [id number] [address] [place] [address], [place] [address] Jan, [facility] [address] [id number] [address] [place] [address], [place] [address] Jan, [facility] [address] [id number] [address] [place] [address], [place] [address] Jan, [facility] [address] [id number] [facility] [address] Jan, [facility] [address] [id number] [facility] [place] [address] Jan, [facility] [address] [id number] [facility] [place] [address] Jan, [facility] [address] [id number] [address] [place] [address], [place] [address] Jan, [facility] [address] [id number] [facility] [place] [address] Jan, [facility] [address] [id number] [address] [place] [address], [place] [address] Jan, [facility] [address] [id number] [address] [place] [address], [place] [address] Jan, [facility] [address] [id number] [address] [place] [address], [place] [address] Jan, [facility] [address] [id number] [address] [place] [address], [place] [address] Jan, [facility] [address] [id number] [address] [place] [address], [place] [address] Jan, [facility] [address] [id number] [address] [place] [address], [place] [address] Dec, [facility] [address] [id number] [address] [place] [address], [place] [address] Dec, [facility] [address] [id number] [address] [place] [address], [place] [address] Dec, [facility] [address] [id number] [address] [place] [address], [place] [address] 17 Dec, 2013 [facility] [address] [id number] [address] [place] [address], [place] [address] 14 Dec, 2013 [facility] [address] [id number] [address] [place] [address], [place] [address] 07 Dec, 2013 [facility] [address] [id number] [address] [place] [address], [place] [address] Dec, [facility] [address] [id number] [address] [place] [address], [place] [address] Dec, [facility] [address] [id number] [address] [place] [address], [place] [address] Dec, [facility] [address] [id number] [address] [place] [address], [place] [address] Dec, [facility] [address] [id number] [address] [place] [address], [place] [address] Dec, [facility] [address] [id number] [address] [place] [address], [place] [address] Dec, [facility] [address] [id number] [address] [place] [address], [place] [address] Nov, [facility] [address] [id number] [address] [place] [address], [place] [address] Nov, [facility] [address] [id number] [address] [place] [address], [place] [address] Nov, [facility] [address] [id number] [address] [place] [address], [place] [address] Nov, [facility] [address] [id number] [address] [place] [address], [place] [address] Nov, [facility] [address] [id number] [address] [place] [address], [place] [address] Nov, [facility] [address] [id number] [address] [place] [address], [place] [address] Nov, [facility] [address] [id number] [address] [place] [address], [place] [address] Oct, [facility] [address] [id number] [address] [place] [address], [place] [address] Oct, [facility] [address] [id number] [address] [place] [address], [place] [address] Sep, [facility] [address] [id number] [address] [place] [address], [place] [address] Sep, [facility] [address] [id number] [address] [place] [address], [place] [address] Sep, [facility] [address] [id number] [address] [place] [address], [place] [address] Sep, [facility] [address] [id number] [address] [place] [address], [place] [address] Aug, [facility] [address] [id number] [address] [place] [address], [place] [address] Aug, [facility] [address] [id number] [address] [place] [address], [place] [address] Aug, [facility] [address] [id number] [address] [place] [address], [place] [address] Jul, [facility] [address] [id number] [address] [place] [address], [place] [address] Jul, [facility] [address] [id number] [address] [place] [address], [place] [address] Jun, [facility] [address] [id number] [address] [place] [address], [place] [address] Jun, [facility] [address] [id number] [address] [place] [address] Jun, [facility] [address] [id number] [address] [place] [address], [place] [address] May, [facility] [address] [id number] [address] [place] [address], [place] [address] May, [facility] [address] [id number] [address] [place] [address] May, [facility] [address] [id number] [address] [place] [address], [place] [address] Apr, [facility] [address] [id number] [address] [place] [address], [place] [address] Apr, [facility] [address] [id number] [address] [place] [address], [place] [address] March, [facility] [address] [id number] [address] [place] [address], [place] [address] Feb, [facility] [address] [id number] [address] [place] [address], [place] [address] Jan, [facility] [address] [id number] [address] [place] [address], [place] [address] 2013 [facility] [address] [id number] [address] [place] [address], [place] [address] 07 Dec, 2012 [facility] [address] [id number] [address] [place] [address], [place] [address] Nov, [facility] [address] [id number] [address] [place] [address], [place] [address] Oct, [facility] [address] [id number] [address] [place] [address], [place] [address] Oct, [facility] [address] [id number] [address] [place] [address], [place] [address] 30 Sep, 2012 [facility] [address] [id number] [address] [place] [address], [place] [address] 29 Sep, 2012 [facility] [address] [id number] [address] [place] [address], [place] [address] 29 Sep, 2012 [facility] [address] [id number] [address] [place] [address], [place] [address] 28 Sep, 2012 [facility] [address] [id number] [address] [place] [address], [place] [address] 13 Sep, 2012 [facility] [address] [id number] [address] [place] [address], [place] [address] 13 Sep, 2012 [facility] [address] [id number] [address] [place] [address], [place] [address] Sep, [facility] [address] [id number] [address] [place] [address], [place] [address] Sep, [facility] [address] [id number] [address] [place] [address], [place] [address] Jul, [facility] [address] [id number] [address] [place] [address], [place] [address] Jun, [facility] [address] [id number] [address] [place] [address], [place] [address] Jun, [facility] [address] [id number] [address] [place] [address], [place] [address] Jun, [facility] [address] [id number] [address] [place] [address], [place] [address] Jun, [facility] [address] [id number] [address] [place] [address], [place] [address] May, [facility] [address] [id number] [address] [place] [address], [place] [address] Apr, [facility] [address] [id number] [address] [place] [address], [place] [address] Jan, [facility] [address] [id number] [address] [place] [address], [place] [address] Dec, [facility] [address] [id number] [address] [place] [address], [place] [address] Dec, [facility] [address] [id number] [address] [place] [address], [place] [address] Nov, [facility] [address] [id number] [address] [place] [address], [place] [address] Oct, [facility] [address] [id number] [address] [place] [address], [place] [address] Oct, [facility] [address] [id number] [address] [place] [address], [place] [address] 18 Aug, 2011 [facility] [address] [id number] [address] [place] [address], [place] [address] 18 Aug, 2011 [facility] [address] [id number] [address] [place] [address], [place] [address] 18 Aug, 2011 [facility] [address] [id number] [address] [place] [address], [place] [address] 14 Aug, 2011 [facility] [address] [id number] [address] [place] [address], [place] [address] 11 Aug, 2011 [facility] [address] [id number] [address] [place] [address], [place] [address] 11 Aug, 2011 [facility] [address] [id number] [address] [place] [address], [place] [address] 19 May, 2011 [facility] [address] [id number] [address] [place] [address], [place] [address] Apr, [facility] [address] [id number] [address] [place] [address], [place] [address] 18 Feb, 2011 [facility] [address] [id number] [address] [place] [address], [place] [address] Oct, [facility] [address] [id number] [address] [place] [address], [place] [address] Oct, [facility] [address] [id number] [address] [place] [address], [place] [address] 07 Oct, 2010 [facility] [address] [id number] [address] [place] [address], [place] [address] 09 Sep, 2010 [facility] [address] [id number] [address] [place] [address], [place] [address] 26 Aug, 2010 [facility] [address] [id number] [address] [place] [address], [place] [address] 16 Jul, 2010 [facility] [address] [id number] [address] [place] [address], [place] [address] 13 May, 2010 [facility] [address] [id number] [address] [place] [id number] Dec, [facility] [address] [id number] [address] [place] [id number] Nov, [facility] [address] [id number] [address] [place] [id number] Oct, [facility] [address] [id number] [address] [place] [id number] Sep, [facility] [address] [id number] [address] [place] [id number] Sep, [facility] [address] [id number] [address] [place] [id number] Jul, [facility] [address] [id number] [address] [place] [id number] Jun, [facility] [address] [id number] [address] [place] [id number] May, IMMUNIZATIONS No Known Immunizations SOCIAL HISTORY Never Assessed REASON FOR VISIT PLAN OF CARE VITAL SIGNS Height 73 in 2014-07-04 Weight 219.1 lbs 2014-07-04 Temperature 96.4 degrees Fahrenheit 2014-07-04 Heart Rate 76 bpm 2014-07-04 Respiratory Rate 20 2014-07-04 Blood pressure systolic 112 mmHg 2014-07-04 Blood pressure diastolic 72 mmHg 2014-07-04 MEDICATIONS No Known Medications RESULTS No Results PROCEDURES Procedure Date Ordered Result Body Site COMPLETE CBC W/AUTO DIFF WBC Jul 04, 2014 VENIPUNCT, ROUTINE* Jul 04, 2014 INSTRUCTIONS MEDICATIONS ADMINISTERED No Known Medications [...]
--- OUTSIDE RECORDS SUMMARY | 2020-06-11 20:59 | XMS REPORT ---
Author Author Jd ROBLEDO Organization [facility] Address [address] [place] [address] Care Team Providers Care Relationship Mgr Name Role Phone PAULA ROBLEDO Unavailable PROBLEMS Type Condition ICD9-CM Code SIR19-YF Code Onset Dates Condition S tatus SNOMED Code Problem Raynauds disease I73.00 Active 195 027657 Problem Venous insufficiency I87.2 Active 16346306 Problem Neuropathy G62.9 Active 050559852 Problem Hypokalemia E87.6 Active 56920511 Problem Other chronic pain G89.29 Active 8 9213538 Problem Low back pain M54.5 Active 129952 009 Problem Congenital deafness H90.5 Active 28508897 Problem Dysthymia F34.1 Active 85871492 ALLERGIES No Information ENCOUNTERS Encounter Location Date Diagnosis [facility] [address] [id number] [address] [place] [address] Jan, Abscess of left knee L02.416 [facility] [address] [facility] [id number] [address] [place] [address] Jan, Prediabetes R73.03 ; Raynaud s disease I73.00 and Venous insufficiency I87.2 [facility] [address] [facility] [id number] [address] [place] [address] Oct, Neuropathy G62.9 ; Low back pain M54.5 and URI (upper respiratory infection) J06.9 [facility] [address] [id number] [address] [place] [address] Jul, Raynauds disease I73.00 and Hypokalemia E87.6 [facility] [address] [id number] [address] [place] [address] May, Medicare annual wellness vis it, initial Z00.00 ; Dysthymia F34.1 ; Raynauds disease I73.00 ; Venous insufficiency I87.2 ; Congenital deafness H90.5 and Neuropathy G62.9 [place] [address] [id number] [address] [place] [address] Apr, [place] [address] [id number] [address] [place] [address] Apr, Prediabetes R73.03 ; Raynaud s disease I73.00 ; Venous insufficiency I87.2 ; Neuropathy G62.9 and Dysthymia F34.1 [place] [address] [id number] [address] [place] [address] March, [place] [id number] [place] [address] Sep, Hyperglycemia R73.9 [place] [address] [address] Sep, Hyperglycemia R73.9 [place] [address] [id number] [address] [place] [address] Sep, Raynauds disease I73.00 ; Ve nous insufficiency I87.2 and Encounter for immunization Z23 [place] [address] [id number] [address] [place] [address] Jun, [place] [address] [id number] [address] [place] [address] May, [place] [id number] [place] [address] May, Other chronic pain G89.29 [place] [address] [id number] [address] [place] [address] May, Raynauds disease I73.00 ; Ve nous insufficiency I87.2 and Low back pain M54.5 [place] [address] [id number] [address] [place] [address] 13 Feb, 2017 Raynauds disease I73.00 ; Ve nous insufficiency I87.2 ; Low back pain M54.5 and Other chronic pain G89.29 [facility] [address] [facility] [id number] [address] [place] [address] 18 Nov, 2016 [facility] [address] [facility] [id number] [address] [place] [address] Nov, Muscle spasm M62.838 [facility] [address] [id number] [address] [place] [address] 16 Nov, 2016 [facility] [id number] [place] [address] Oct, Folliculitis L73.9 and Venou s insufficiency I87.2 [facility] [address] [id number] [address] [place] [address] Sep, Dermatitis L30.9 and Raynaud s disease I73.00 [facility] [address] [id number] [address] [place] [address] Sep, Rash and nonspecific skin er uption R21 [facility] [address] [address] Aug, Skin infection L08.9 [facility] [address] [id number] [address] [place] [address] May, Infected smith L08.9 [facility] [address] [id number] [address] [place] [address] May, Skin infection L08.9 [facility] [address] [id number] [address] [place] [address] Dec, [facility] [address] [id number] [address] [place] [address] Nov, [facility] [address] [id number] [address] [place] [address] Nov, [facility] [address] [address] Nov, Raynauds disease I73.00 [facility] [address] [facility] [id number] [address] [place] [address] Nov, Raynauds disease I73.00 ; Le g cramps R25.2 ; Venous insufficiency I87.2 and Routine adult health maintenance Z00.00 [facility] [address] [facility] [id number] [address] [place] [address] Jul, Infected sebaceous cyst 706. 2 [facility] [address] [facility] [id number] [address] [place] [address] Jun, [facility] [address] [facility] [id number] [address] [place] [address] Jun, [facility] [address] [facility] [id number] [address] [place] [address] Jun, Venous insufficiency 459.81 and Raynauds disease 443.0 [facility] [address] [facility] [id number] [address] [place] [address] Feb, [facility] [address] [facility] [id number] [address] [place] [address] Feb, [facility] [address] [facility] [id number] [address] [place] [phone] Jan, [facility] [address] [facility] [id number] [address] [place] [phone] Jan, [facility] [address] [facility] [id number] [address] [place] [address] Dec, [facility] [address] [facility] [id number] [address] [place] [address] Dec, [facility] [address] [facility] [id number] [address] [place] [phone] Dec, [facility] [address] [facility] [id number] [address] [place] [address] Dec, [facility] [address] [id number] [address] [place] [address], [place] [address] Nov, [facility] [address] [id number] [address] [place] [address], [place] [address] Nov, [facility] [address] [id number] [address] [place] [address], [place] [address] Oct, [facility] [address] [id number] [address] [place] [address], [place] [address] Oct, [facility] [address] [id number] [address] [place] [address], [place] [address] Aug, [facility] [address] [id number] [address] [place] [address], [place] [address] Aug, [facility] [address] [id number] [address] [place] [address], [place] [address] Aug, [facility] [address] [id number] [address] [place] [address], [place] [address] Jul, [facility] [address] [id number] [address] [place] [address], [place] [address] Jul, [facility] [address] [id number] [address] [place] [address], [place] [address] Jul, [facility] [address] [id number] [address] [place] [address], [place] [address] Jul, [facility] [address] [id number] [address] [place] [id number] Jun, [facility] [address] [id number] [address] [place] [address], [place] [address] Jun, [facility] [address] [id number] [address] [place] [address], [place] [address] Jun, [facility] [address] [id number] [address] [place] [phone] Jun, [facility] [address] [id number] [address] [place] [address], [place] [address] May, [facility] [address] [id number] [facility] [address] May, [facility] [address] [id number] [address] [place] [address], [place] [address] May, [facility] [address] [id number] [address] [place] [address], [place] [address] 15 May, 2014 [facility] [address] [id number] [address] [place] [address], [place] [address] May, [facility] [address] [id number] [address] [place] [address], [place] [address] May, [facility] [address] [id number] [address] [place] [address], [place] [address] May, [facility] [address] [id number] [address] [place] [address], [place] [address] Apr, [facility] [address] [id number] [address] [place] [address], [place] [address] Apr, [facility] [address] [id number] [address] [place] [address], [place] [address] Apr, [facility] [address] [id number] [address] [place] [address], [place] [address] Apr, [facility] [address] [id number] [address] [place] [address], [place] [address] March, [facility] [address] [id number] [address] [place] [address], [place] [address] March, [facility] [address] [id number] [address] [place] [address], [place] [address] March, [facility] [address] [id number] [address] [place] [address], [place] [address] March, [facility] [address] [id number] [address] [place] [address], [place] [address] March, [facility] [address] [id number] [address] [place] [address], [place] [address] March, [facility] [address] [id number] [address] [place] [address], [place] [address] March, [facility] [address] [id number] [address] [place] [address], [place] [address] Feb, [facility] [address] [id number] [address] [place] [address], [place] [address] Feb, [facility] [address] [place] [id number] Feb, [facility] [address] [id number] [address] [place] [address], [place] [address] Feb, [facility] [address] [id number] [address] [place] [address], [place] [address] Feb, [facility] [address] [id number] [address] [place] [address], [place] [address] Feb, [facility] [address] [id number] [address] [place] [address], [place] [address] Jan, [facility] [address] [id number] [address] [place] [address], [place] [address] Jan, [facility] [address] [id number] [address] [place] [address], [place] [address] Jan, [facility] [address] [id number] [address] [place] [address], [place] [address] Jan, [facility] [address] [id number] [address] [place] [address], [place] [address] Jan, [facility] [address] [id number] [address] [place] [address], [place] [address] Jan, [facility] [address] [id number] [address] [place] [address], [place] [address] Jan, [facility] [address] [id number] [address] [place] [address], [place] [address] Jan, [facility] [address] [id number] [facility] [address] Jan, [facility] [address] [id number] [facility] [address] Jan, [facility] [address] [id number] [facility] [address] Jan, [facility] [address] [id number] [address] [place] [address], [place] [address] Jan, [facility] [address] [id number] [facility] [address] Jan, [facility] [address] [id number] [address] [place] [address], [place] [address] Jan, [facility] [address] [id number] [address] [place] [address], [place] [address] Jan, [facility] [address] [id number] [address] [place] [address], [place] [address] Jan, [facility] [address] [id number] [address] [place] [address], [place] [address] Jan, [facility] [address] [id number] [address] [place] [address], [place] [address] Jan, [facility] [address] [id number] [address] [place] [address], [place] [address] Dec, [facility] [address] [id number] [address] [place] [address], [place] [address] Dec, [facility] [address] [id number] [address] [place] [address], [place] [address] Dec, [facility] [address] [id number] [address] [place] [address], [place] [address] 17 Dec, 2013 [facility] [address] [id number] [address] [place] [address], [place] [address] 14 Dec, 2013 [facility] [address] [id number] [address] [place] [address], [place] [address] 07 Dec, 2013 [facility] [address] [id number] [address] [place] [address], [place] [address] Dec, [facility] [address] [id number] [address] [place] [address], [place] [address] Dec, [facility] [address] [id number] [address] [place] [address], [place] [address] Dec, [facility] [address] [id number] [address] [place] [address], [place] [address] Dec, [facility] [address] [id number] [address] [place] [address], [place] [address] Dec, [facility] [address] [id number] [address] [place] [address], [place] [address] Dec, [facility] [address] [id number] [address] [place] [address], [place] [address] Nov, [facility] [address] [id number] [address] [place] [address], [place] [address] Nov, [facility] [address] [id number] [address] [place] [address], [place] [address] Nov, [facility] [address] [id number] [address] [place] [address], [place] [address] Nov, [facility] [address] [id number] [address] [place] [address], [place] [address] Nov, [facility] [address] [id number] [address] [place] [address], [place] [address] Nov, [facility] [address] [id number] [address] [place] [address], [place] [address] Nov, [facility] [address] [id number] [address] [place] [address], [place] [address] Oct, [facility] [address] [id number] [address] [place] [address], [place] [address] Oct, [facility] [address] [id number] [address] [place] [address], [place] [address] Sep, [facility] [address] [id number] [address] [place] [address], [place] [address] Sep, [facility] [address] [id number] [address] [place] [address], [place] [address] Sep, [facility] [address] [id number] [address] [place] [address], [place] [address] Sep, [facility] [address] [id number] [address] [place] [address], [place] [address] Aug, [facility] [address] [id number] [address] [place] [address], [place] [address] Aug, [facility] [address] [id number] [address] [place] [address], [place] [address] Aug, [facility] [address] [id number] [address] [place] [address], [place] [address] Jul, [facility] [address] [id number] [address] [place] [address], [place] [address] Jul, [facility] [address] [id number] [address] [place] [address], [place] [address] Jun, [facility] [address] [id number] [address] [place] [address], [place] [address] Jun, [facility] [address] [id number] [address] [place] [address] Jun, [facility] [address] [id number] [address] [place] [address], [place] [address] May, [facility] [address] [id number] [address] [place] [address], [place] [address] May, [facility] [address] [id number] [address] [place] [address] May, [facility] [address] [id number] [address] [place] [address], [place] [address] Apr, [facility] [address] [id number] [address] [place] [address], [place] [address] Apr, [facility] [address] [id number] [address] [place] [address], [place] [address] March, [facility] [address] [id number] [address] [place] [address], [place] [address] Feb, [facility] [address] [id number] [address] [place] [address], [place] [address] Jan, [facility] [address] [id number] [address] [place] [address] [address] 2013 [facility] [address] [id number] [address] [place] [address], [place] [address] 07 Dec, 2012 [facility] [address] [id number] [address] [place] [address], [place] [address] Nov, [facility] [address] [id number] [address] [place] [address], [place] [address] Oct, [facility] [address] [id number] [address] [place] [address], [place] [address] Oct, [facility] [address] [id number] [address] [place] [address], [place] [address] 30 Sep, 2012 [facility] [address] [id number] [address] [place] [address], [place] [address] 29 Sep, 2012 [facility] [address] [id number] [address] [place] [address], [place] [address] 29 Sep, 2012 [facility] [address] [id number] [address] [place] [address], [place] [address] 28 Sep, 2012 [facility] [address] [id number] [address] [place] [address], [place] [address] 13 Sep, 2012 [facility] [address] [id number] [address] [place] [address], [place] [address] 13 Sep, 2012 [facility] [address] [id number] [address] [place] [address], [place] [address] Sep, [facility] [address] [id number] [address] [place] [address], [place] [address] Sep, [facility] [address] [id number] [address] [place] [address], [place] [address] Jul, [facility] [address] [id number] [address] [place] [address], [place] [address] Jun, [facility] [address] [id number] [address] [place] [address], [place] [address] Jun, [facility] [address] [id number] [address] [place] [address], [place] [address] Jun, [facility] [address] [id number] [address] [place] [address], [place] [address] Jun, [facility] [address] [id number] [address] [place] [address], [place] [address] May, [facility] [address] [id number] [address] [place] [address], [place] [address] Apr, [facility] [address] [id number] [address] [place] [address], [place] [address] Jan, [facility] [address] [id number] [address] [place] [address], [place] [address] Dec, [facility] [address] [id number] [address] [place] [address], [place] [address] Dec, [facility] [address] [id number] [address] [place] [address], [place] [address] Nov, [facility] [address] [id number] [address] [place] [address], [place] [address] Oct, [facility] [address] [id number] [address] [place] [address], [place] [address] Oct, [facility] [address] [id number] [address] [place] [address], [place] [address] 18 Aug, 2011 [facility] [address] [id number] [address] [place] [address], [place] [address] 18 Aug, 2011 [facility] [address] [id number] [address] [place] [address], [place] [address] 18 Aug, 2011 [facility] [address] [id number] [address] [place] [address], [place] [address] 14 Aug, 2011 [facility] [address] [id number] [address] [place] [address], [place] [address] 11 Aug, 2011 [facility] [address] [id number] [address] [place] [address], [place] [address] 11 Aug, 2011 [facility] [address] [id number] [address] [place] [address], [place] [address] 19 May, 2011 [facility] [address] [id number] [address] [place] [address], [place] [address] Apr, [facility] [address] [id number] [address] [place] [address], [place] [address] 18 Feb, 2011 [facility] [address] [id number] [address] [place] [address], [place] [address] Oct, [facility] [address] [id number] [address] [place] [address], [place] [address] Oct, [facility] [address] [id number] [address] [place] [address], [place] [address] 07 Oct, 2010 [facility] [address] [id number] [address] [place] [address], [place] [address] 09 Sep, 2010 [facility] [address] [id number] [address] [place] [address], [place] [address] 26 Aug, 2010 [facility] [address] [id number] [address] [place] [address], [place] [address] 16 Jul, 2010 [facility] [address] [id number] [address] [place] [address], [place] [address] 13 May, 2010 [facility] [address] [id number] [address] [place] [id number] Dec, [facility] [address] [id number] [address] [place] [id number] Nov, [facility] [address] [id number] [address] [place] [id number] Oct, [facility] [address] [id number] [address] [place] [id number] Sep, [facility] [address] [id number] [address] [place] [id number] Sep, [facility] [address] [id number] [address] [place] [id number] Jul, [facility] [address] [id number] [address] [place] [id number] Jun, [facility] [address] [id number] [address] [place] [id number] May, IMMUNIZATIONS No Known Immunizations SOCIAL HISTORY Never Assessed REASON FOR VISIT PLAN OF CARE VITAL SIGNS Height 73 in 2015-02-16 Weight 201.12 lbs 2015-02-16 Temperature 97.2 degrees Fahrenheit 2015-02-16 Heart Rate 72 bpm 2015-02-16 Respiratory Rate 16 2015-02-16 Blood pressure systolic 108 mmHg 2015-02-16 Blood pressure diastolic 72 mmHg 2015-02-16 MEDICATIONS No Known Medications RESULTS No Results PROCEDURES Procedure Date Ordered Result Body Site X-RAY EXAM OF ANKLE February 16, 2015 INSTRUCTIONS MEDICATIONS ADMINISTERED No Known Medications [...]
--- OUTSIDE RECORDS SUMMARY | 2020-06-11 20:59 | XMS REPORT ---
Author Author Jd ROBLEDO Organization [facility] Address [address] [place] [address] Care Team Providers Care Sales And Service Technician Name Role Phone PAULA ROBLEDO Unavailable PROBLEMS Type Condition ICD9-CM Code QTD55-FA Code Onset Dates Condition S tatus SNOMED Code Problem Raynauds disease I73.00 Active 195 600438 Problem Venous insufficiency I87.2 Active 24422489 Problem Neuropathy G62.9 Active [id number] Problem Hypokalemia E87.6 Active 58964932 Problem Other chronic pain G89.29 Active 8 3169711 Problem Low back pain M54.5 Active 158654 009 Problem Congenital deafness H90.5 Active 75382797 Problem Dysthymia F34.1 Active [id number] ALLERGIES No Information ENCOUNTERS Encounter Location Date Diagnosis [facility] [address] [place] [id number] [address] [place] [address] Jan, Abscess of left knee L02.416 [facility] [address] [facility] [id number] [address] [place] [address] Jan, Prediabetes R73.03 ; Raynaud s disease I73.00 and Venous insufficiency I87.2 [facility] [address] [facility] [id number] [address] [place] [address] Oct, Neuropathy G62.9 ; Low back pain M54.5 and URI (upper respiratory infection) J06.9 [facility] [address] [id number] [address] [place] [address] Jul, Raynauds disease I73.00 and Hypokalemia E87.6 [facility] [address] [id number] [address] [place] [address] May, Medicare annual wellness vis it, initial Z00.00 ; Dysthymia F34.1 ; Raynauds disease I73.00 ; Venous insufficiency I87.2 ; Congenital deafness H90.5 and Neuropathy G62.9 [place] [address] [id number] [address] [place] [address] Apr, [place] [address] [place] [id number] [address] [place] [address] Apr, Prediabetes R73.03 ; Raynaud s disease I73.00 ; Venous insufficiency I87.2 ; Neuropathy G62.9 and Dysthymia F34.1 [place] [address] [id number] [address] [place] [address] March, [place] [address] [place] [id number] [place] [address] Sep, Hyperglycemia R73.9 [place] [address] [address] Sep, Hyperglycemia R73.9 [place] [address] [id number] [address] [place] [address] Sep, Raynauds disease I73.00 ; Ve nous insufficiency I87.2 and Encounter for immunization Z23 [place] [address] [place] [id number] [address] [place] [address] Jun, [place] [address] [place] [id number] [address] [place] [address] May, [place] [address] [place] [id number] [place] [address] May, Other chronic pain G89.29 [place] [address] [id number] [address] [place] [address] May, Raynauds disease I73.00 ; Ve nous insufficiency I87.2 and Low back pain M54.5 [place] [address] [place] [id number] [address] [place] [address] 13 Feb, 2017 Raynauds disease I73.00 ; Ve nous insufficiency I87.2 ; Low back pain M54.5 and Other chronic pain G89.29 [facility] [address] [facility] [place] [id number] [address] [place] [address] 18 Nov, 2016 [facility] [address] [facility] [id number] [address] [place] [address] Nov, Muscle spasm M62.838 [facility] [address] [id number] [address] [place] [address] 16 Nov, 2016 [facility] [address] [id number] [place] [address] Oct, Folliculitis L73.9 and Venou s insufficiency I87.2 [facility] [address] [id number] [address] [place] [address] Sep, Dermatitis L30.9 and Raynaud s disease I73.00 [facility] [address] [id number] [address] [place] [address] Sep, Rash and nonspecific skin er uption R21 [facility] [address] [address] Aug, Skin infection L08.9 [facility] [address] [id number] [address] [place] [address] May, Infected smith L08.9 [facility] [address] [place] [id number] [address] [place] [address] May, Skin infection L08.9 [facility] [address] [id number] [address] [place] [address] Dec, [facility] [address] [id number] [address] [place] [address] Nov, [facility] [address] [id number] [address] [place] [address] Nov, [facility] [address] [address] Nov, Raynauds disease I73.00 [facility] [address] [facility] [place] [id number] [address] [place] [address] Nov, Raynauds disease I73.00 ; Le g cramps R25.2 ; Venous insufficiency I87.2 and Routine adult health maintenance Z00.00 [facility] [address] [facility] [place] [place] [id number] [address] [place] [address] Jul, Infected sebaceous cyst 706. 2 [facility] [address] [facility] [place] [id number] [address] [place] [address] Jun, [facility] [address] [facility] [place] [id number] [address] [place] [address] Jun, [facility] [address] [facility] [place] [id number] [address] [place] [address] Jun, Venous insufficiency 459.81 and Raynauds disease 443.0 [facility] [address] [facility] [place] [place] [id number] [address] [place] [address] Feb, [facility] [address] [facility] [place] [id number] [address] [place] [address] Feb, [facility] [address] [facility] [id number] [address] [place] [address] Jan, [facility] [address] [facility] [id number] [address] [place] [phone] Jan, [facility] [address] [facility] [id number] [address] [place] [address] Dec, [facility] [address] [facility] [id number] [address] [place] [address] Dec, [facility] [address] [facility] [id number] [address] [place] [id number] Dec, [facility] [address] [facility] [id number] [address] [place] [address] Dec, [facility] [address] [id number] [address] [place] [address], [place] [address] Nov, [facility] [address] [id number] [address] [place] [address], [place] [address] Nov, [facility] [address] [id number] [address] [place] [address], [place] [address] Oct, [facility] [address] [id number] [address] [place] [address], [place] [address] Oct, [facility] [address] [id number] [address] [place] [address], [place] [address] Aug, [facility] [address] [id number] [address] [place] [address], [place] [address] Aug, [facility] [address] [id number] [address] [place] [address], [place] [address] Aug, [facility] [address] [id number] [address] [place] [address], [place] [address] Jul, [facility] [address] [id number] [address] [place] [address], [place] [address] Jul, [facility] [address] [id number] [address] [place] [address], [place] [address] Jul, [facility] [address] [id number] [address] [place] [address], [place] [address] Jul, [facility] [address] [id number] [address] [place] [address] Jun, [facility] [address] [id number] [address] [place] [address], [place] [address] Jun, [facility] [address] [id number] [address] [place] [address], [place] [address] Jun, [facility] [address] [id number] [address] [place] [address] Jun, [facility] [address] [id number] [address] [place] [address], [place] [address] May, [facility] [address] [id number] [facility] [place] [address] May, [facility] [address] [id number] [address] [place] [address], [place] [address] May, [facility] [address] [id number] [address] [place] [address], [place] [address] 15 May, 2014 [facility] [address] [id number] [address] [place] [address], [place] [address] May, [facility] [address] [id number] [address] [place] [address], [place] [address] May, [facility] [address] [id number] [address] [place] [address], [place] [address] May, [facility] [address] [id number] [address] [place] [address], [place] [address] Apr, [facility] [address] [id number] [address] [place] [address], [place] [address] Apr, [facility] [address] [id number] [address] [place] [address], [place] [address] Apr, [facility] [address] [id number] [address] [place] [address], [place] [address] Apr, [facility] [address] [id number] [address] [place] [address], [place] [address] March, [facility] [address] [id number] [address] [place] [address], [place] [address] March, [facility] [address] [id number] [address] [place] [address], [place] [address] March, [facility] [address] [id number] [address] [place] [address], [place] [address] March, [facility] [address] [id number] [address] [place] [address], [place] [address] March, [facility] [address] [id number] [address] [place] [address], [place] [address] March, [facility] [address] [id number] [address] [place] [address], [place] [address] March, [facility] [address] [id number] [address] [place] [address], [place] [address] Feb, [facility] [address] [id number] [address] [place] [address], [place] [address] Feb, [facility] [address] [place] [id number] Feb, [facility] [address] [id number] [address] [place] [address], [place] [address] Feb, [facility] [address] [id number] [address] [place] [address], [place] [address] Feb, [facility] [address] [id number] [address] [place] [address], [place] [address] Feb, [facility] [address] [id number] [address] [place] [address], [place] [address] Jan, [facility] [address] [id number] [address] [place] [address], [place] [address] Jan, [facility] [address] [id number] [address] [place] [address], [place] [address] Jan, [facility] [address] [id number] [address] [place] [address], [place] [address] Jan, [facility] [address] [id number] [address] [place] [address], [place] [address] Jan, [facility] [address] [id number] [address] [place] [address], [place] [address] Jan, [facility] [address] [id number] [address] [place] [address], [place] [address] Jan, [facility] [address] [id number] [address] [place] [address], [place] [address] Jan, [facility] [address] [id number] [facility] [place] [address] Jan, [facility] [address] [id number] [facility] [place] [address] Jan, [facility] [address] [id number] [facility] [place] [address] Jan, [facility] [address] [id number] [address] [place] [address], [place] [address] Jan, [facility] [address] [id number] [facility] [place] [address] Jan, [facility] [address] [id number] [address] [place] [address], [place] [address] Jan, [facility] [address] [id number] [address] [place] [address], [place] [address] Jan, [facility] [address] [id number] [address] [place] [address], [place] [address] Jan, [facility] [address] [id number] [address] [place] [address], [place] [address] Jan, [facility] [address] [id number] [address] [place] [address], [place] [address] Jan, [facility] [address] [id number] [address] [place] [address], [place] [address] Dec, [facility] [address] [id number] [address] [place] [address], [place] [address] Dec, [facility] [address] [id number] [address] [place] [address], [place] [address] Dec, [facility] [address] [id number] [address] [place] [address], [place] [address] 17 Dec, 2013 [facility] [address] [id number] [address] [place] [address], [place] [address] 14 Dec, 2013 [facility] [address] [id number] [address] [place] [address], [place] [address] 07 Dec, 2013 [facility] [address] [id number] [address] [place] [address], [place] [address] Dec, [facility] [address] [id number] [address] [place] [address], [place] [address] Dec, [facility] [address] [id number] [address] [place] [address], [place] [address] Dec, [facility] [address] [id number] [address] [place] [address], [place] [address] Dec, [facility] [address] [id number] [address] [place] [address], [place] [address] Dec, [facility] [address] [id number] [address] [place] [address], [place] [address] Dec, [facility] [address] [id number] [address] [place] [address], [place] [address] Nov, [facility] [address] [id number] [address] [place] [address], [place] [address] Nov, [facility] [address] [id number] [address] [place] [address], [place] [address] Nov, [facility] [address] [id number] [address] [place] [address], [place] [address] Nov, [facility] [address] [id number] [address] [place] [address], [place] [address] Nov, [facility] [address] [id number] [address] [place] [address], [place] [address] Nov, [facility] [address] [id number] [address] [place] [address], [place] [address] Nov, [facility] [address] [id number] [address] [place] [address], [place] [address] Oct, [facility] [address] [id number] [address] [place] [address], [place] [address] Oct, [facility] [address] [id number] [address] [place] [address], [place] [address] Sep, [facility] [address] [id number] [address] [place] [address], [place] [address] Sep, [facility] [address] [id number] [address] [place] [address], [place] [address] Sep, [facility] [address] [id number] [address] [place] [address], [place] [address] Sep, [facility] [address] [id number] [address] [place] [address], [place] [address] Aug, [facility] [address] [id number] [address] [place] [address], [place] [address] Aug, [facility] [address] [id number] [address] [place] [address], [place] [address] Aug, [facility] [address] [id number] [address] [place] [address], [place] [address] Jul, [facility] [address] [id number] [address] [place] [address], [place] [address] Jul, [facility] [address] [id number] [address] [place] [address], [place] [address] Jun, [facility] [address] [id number] [address] [place] [address], [place] [address] Jun, [facility] [address] [id number] [address] [place] [address] Jun, [facility] [address] [id number] [address] [place] [address], [place] [address] May, [facility] [address] [id number] [address] [place] [address], [place] [address] May, [facility] [address] [id number] [address] [place] [address] May, [facility] [address] [id number] [address] [place] [address], [place] [address] Apr, [facility] [address] [id number] [address] [place] [address], [place] [address] Apr, [facility] [address] [id number] [address] [place] [address], [place] [address] March, [facility] [address] [id number] [address] [place] [address], [place] [address] Feb, [facility] [address] [id number] [address] [place] [address], [place] [address] Jan, [facility] [address] [id number] [address] [place] [address] [address] 2013 [facility] [address] [id number] [address] [place] [address], [place] [address] 07 Dec, 2012 [facility] [address] [id number] [address] [place] [address], [place] [address] Nov, [facility] [address] [id number] [address] [place] [address], [place] [address] Oct, [facility] [address] [id number] [address] [place] [address], [place] [address] Oct, [facility] [address] [id number] [address] [place] [address], [place] [address] 30 Sep, 2012 [facility] [address] [id number] [address] [place] [address], [place] [address] 29 Sep, 2012 [facility] [address] [id number] [address] [place] [address], [place] [address] 29 Sep, 2012 [facility] [address] [id number] [address] [place] [address], [place] [address] 28 Sep, 2012 [facility] [address] [id number] [address] [place] [address], [place] [address] 13 Sep, 2012 [facility] [address] [id number] [address] [place] [address], [place] [address] 13 Sep, 2012 [facility] [address] [id number] [address] [place] [address], [place] [address] Sep, [facility] [address] [id number] [address] [place] [address], [place] [address] Sep, [facility] [address] [id number] [address] [place] [address], [place] [address] Jul, [facility] [address] [id number] [address] [place] [address], [place] [address] Jun, [facility] [address] [id number] [address] [place] [address], [place] [address] Jun, [facility] [address] [id number] [address] [place] [address], [place] [address] Jun, [facility] [address] [id number] [address] [place] [address], [place] [address] Jun, [facility] [address] [id number] [address] [place] [address], [place] [address] May, [facility] [address] [id number] [address] [place] [address], [place] [address] Apr, [facility] [address] [id number] [address] [place] [address], [place] [address] Jan, [facility] [address] [id number] [address] [place] [address], [place] [address] Dec, [facility] [address] [id number] [address] [place] [address], [place] [address] Dec, [facility] [address] [id number] [address] [place] [address], [place] [address] Nov, [facility] [address] [id number] [address] [place] [address], [place] [address] Oct, [facility] [address] [id number] [address] [place] [address], [place] [address] Oct, [facility] [address] [id number] [address] [place] [address], [place] [address] 18 Aug, 2011 [facility] [address] [id number] [address] [place] [address], [place] [address] 18 Aug, 2011 [facility] [address] [id number] [address] [place] [address], [place] [address] 18 Aug, 2011 [facility] [address] [id number] [address] [place] [address], [place] [address] 14 Aug, 2011 [facility] [address] [id number] [address] [place] [address], [place] [address] 11 Aug, 2011 [facility] [address] [id number] [address] [place] [address], [place] [address] 11 Aug, 2011 [facility] [address] [id number] [address] [place] [address], [place] [address] 19 May, 2011 [facility] [address] [id number] [address] [place] [address], [place] [address] Apr, [facility] [address] [id number] [address] [place] [address], [place] [address] 18 Feb, 2011 [facility] [address] [id number] [address] [place] [address], [place] [address] Oct, [facility] [address] [id number] [address] [place] [address], [place] [address] Oct, [facility] [address] [id number] [address] [place] [address], [place] [address] 07 Oct, 2010 [facility] [address] [id number] [address] [place] [address], [place] [address] 09 Sep, 2010 [facility] [address] [id number] [address] [place] [address], [place] [address] 26 Aug, 2010 [facility] [address] [id number] [address] [place] [address], [place] [address] 16 Jul, 2010 [facility] [address] [id number] [address] [place] [address], [place] [address] 13 May, 2010 [facility] [address] [id number] [address] [place] [address] Dec, [facility] [address] [id number] [address] [place] [address] Nov, [facility] [address] [id number] [address] [place] [address] [id number] Oct, [facility] [address] [facility] [place] [id number] [address] [place] [phone] Sep, [facility] [address] [facility] [place] [id number] [address] [place] [phone] Sep, [facility] [address] [facility] [place] [id number] [address] [place] [id number] Jul, [facility] [address] [facility] [place] [id number] [address] [place] [phone] Jun, [facility] [address] [facility] [place] [id number] [address] [place] [phone] May, IMMUNIZATIONS No Known Immunizations SOCIAL HISTORY [...]
--- OUTSIDE RECORDS SUMMARY | 2020-06-11 20:59 | XMS REPORT ---
Author Author Jd ROBLEDO Organization [facility] Address [address] [place] [address] Care Team Providers Care Floor Nurse Name Role Phone PAULA ROBLEDO Unavailable PROBLEMS Type Condition ICD9-CM Code OOR82-CX Code Onset Dates Condition S tatus SNOMED Code Problem Raynauds disease I73.00 Active 195 065160 Problem Venous insufficiency I87.2 Active 38295931 Problem Neuropathy G62.9 Active 024779874 Problem Hypokalemia E87.6 Active 13174998 Problem Other chronic pain G89.29 Active 8 0533704 Problem Low back pain M54.5 Active 434997 009 Problem Congenital deafness H90.5 Active 38573776 Problem Dysthymia F34.1 Active [id number] ALLERGIES No Information ENCOUNTERS Encounter Location Date Diagnosis [facility] [address] [id number] [address] [place] [address] Jan, Abscess of left knee L02.416 [facility] [address] [facility] [id number] [address] [place] [address] Jan, Prediabetes R73.03 ; Raynaud s disease I73.00 and Venous insufficiency I87.2 [facility] [address] [facility] [id number] [address] [place] [address] Oct, Neuropathy G62.9 ; Low back pain M54.5 and URI (upper respiratory infection) J06.9 [facility] [address] [id number] [address] [place] [address] Jul, Raynauds disease I73.00 and Hypokalemia E87.6 [facility] [address] [id number] [address] [place] [address] May, Medicare annual wellness vis it, initial Z00.00 ; Dysthymia F34.1 ; Raynauds disease I73.00 ; Venous insufficiency I87.2 ; Congenital deafness H90.5 and Neuropathy G62.9 [place] [address] [id number] [address] [place] [address] Apr, [place] [address] [id number] [address] [place] [address] Apr, Prediabetes R73.03 ; Raynaud s disease I73.00 ; Venous insufficiency I87.2 ; Neuropathy G62.9 and Dysthymia F34.1 [place] [address] [id number] [address] [place] [address] March, [place] [id number] [place] [address] Sep, Hyperglycemia R73.9 [place] [address] [address] Sep, Hyperglycemia R73.9 [place] [address] [id number] [address] [place] [address] Sep, Raynauds disease I73.00 ; Ve nous insufficiency I87.2 and Encounter for immunization Z23 [place] [address] [id number] [address] [place] [address] Jun, [place] [address] [id number] [address] [place] [address] May, [place] [id number] [place] [address] May, Other chronic pain G89.29 [place] [address] [id number] [address] [place] [address] May, Raynauds disease I73.00 ; Ve nous insufficiency I87.2 and Low back pain M54.5 [place] [address] [id number] [address] [place] [address] 13 Feb, 2017 Raynauds disease I73.00 ; Ve nous insufficiency I87.2 ; Low back pain M54.5 and Other chronic pain G89.29 [facility] [address] [facility] [id number] [address] [place] [address] 18 Nov, 2016 [facility] [address] [facility] [id number] [address] [place] [address] Nov, Muscle spasm M62.838 [facility] [address] [id number] [address] [place] [address] 16 Nov, 2016 [facility] [id number] [place] [address] Oct, Folliculitis L73.9 and Venou s insufficiency I87.2 [facility] [address] [id number] [address] [place] [address] Sep, Dermatitis L30.9 and Raynaud s disease I73.00 [facility] [address] [id number] [address] [place] [address] Sep, Rash and nonspecific skin er uption R21 [facility] [address] [address] Aug, Skin infection L08.9 [facility] [address] [id number] [address] [place] [address] May, Infected smith L08.9 [facility] [address] [id number] [address] [place] [address] May, Skin infection L08.9 [facility] [address] [id number] [address] [place] [address] Dec, [facility] [address] [id number] [address] [place] [address] Nov, [facility] [address] [id number] [address] [place] [address] Nov, [facility] [address] [address] Nov, Raynauds disease I73.00 [facility] [address] [facility] [id number] [address] [place] [address] Nov, Raynauds disease I73.00 ; Le g cramps R25.2 ; Venous insufficiency I87.2 and Routine adult health maintenance Z00.00 [facility] [address] [facility] [id number] [address] [place] [address] Jul, Infected sebaceous cyst 706. 2 [facility] [address] [facility] [id number] [address] [place] [address] Jun, [facility] [address] [facility] [id number] [address] [place] [address] Jun, [facility] [address] [facility] [id number] [address] [place] [address] Jun, Venous insufficiency 459.81 and Raynauds disease 443.0 [facility] [address] [facility] [id number] [address] [place] [address] Feb, [facility] [address] [facility] [id number] [address] [place] [address] Feb, [facility] [address] [facility] [id number] [address] [place] [address] Jan, [facility] [address] [facility] [id number] [address] [place] [address] Jan, [facility] [address] [facility] [id number] [address] [place] [address] Dec, [facility] [address] [facility] [id number] [address] [place] [address] Dec, [facility] [address] [facility] [id number] [address] [place] [address] Dec, [facility] [address] [facility] [id number] [address] [place] [address] Dec, [facility] [place] [address] [id number] [address] [place] [address], [place] [address] Nov, [facility] [address] [id number] [address] [place] [address], [place] [address] Nov, [facility] [place] [facility] [address] [id number] [address] [place] [address], [place] [address] Oct, [facility] [address] [id number] [address] [place] [address], [place] [address] Oct, [facility] [place] [facility] [address] [id number] [address] [place] [address], [place] [address] Aug, [facility] [address] [id number] [address] [place] [address], [place] [address] Aug, [facility] [place] [address] [id number] [address] [place] [address], [place] [address] Aug, [facility] [place] [facility] [address] [id number] [address] [place] [address], [place] [address] Jul, [facility] [address] [id number] [address] [place] [address], [place] [address] Jul, [facility] [address] [id number] [address] [place] [address], [place] [address] Jul, [facility] [address] [id number] [address] [place] [address], [place] [address] Jul, [facility] [address] [id number] [address] [place] [address] Jun, [facility] [address] [id number] [address] [place] [address], [place] [address] Jun, [facility] [address] [id number] [address] [place] [address], [place] [address] Jun, [facility] [address] [id number] [address] [place] [address] Jun, [facility] [address] [id number] [address] [place] [address], [place] [address] May, [facility] [place] [facility] [address] [id number] [facility] [place] [place] [address] May, [facility] [place] [facility] [address] [id number] [address] [place] [address], [place] [address] May, [facility] [place] [address] [id number] [address] [place] [address], [place] [address] 15 May, 2014 [facility] [place] [facility] [address] [id number] [address] [place] [address], [place] [address] May, [facility] [place] [address] [id number] [address] [place] [address], [place] [address] May, [facility] [place] [address] [id number] [address] [place] [address], [place] [address] May, [facility] [place] [facility] [address] [id number] [address] [place] [address], [place] [address] Apr, [facility] [place] [facility] [address] [id number] [address] [place] [address], [place] [address] Apr, [facility] [place] [address] [id number] [address] [place] [address], [place] [address] Apr, [facility] [place] [facility] [address] [id number] [address] [place] [address], [place] [address] Apr, [facility] [place] [facility] [address] [id number] [address] [place] [address], [place] [address] March, [facility] [place] [address] [id number] [address] [place] [address], [place] [address] March, [facility] [place] [address] [id number] [address] [place] [address], [place] [address] March, [facility] [address] [id number] [address] [place] [address], [place] [address] March, [facility] [place] [facility] [address] [id number] [address] [place] [address], [place] [address] March, [facility] [address] [id number] [address] [place] [address], [place] [address] March, [facility] [address] [id number] [address] [place] [address], [place] [address] March, [facility] [address] [id number] [address] [place] [address], [place] [address] Feb, [facility] [address] [id number] [address] [place] [address], [place] [address] Feb, [facility] [address] [place] [id number] Feb, [facility] [address] [id number] [address] [place] [address], [place] [address] Feb, [facility] [address] [id number] [address] [place] [address], [place] [address] Feb, [facility] [address] [id number] [address] [place] [address], [place] [address] Feb, [facility] [address] [id number] [address] [place] [address], [place] [address] Jan, [facility] [address] [id number] [address] [place] [address], [place] [address] Jan, [facility] [address] [id number] [address] [place] [address], [place] [address] Jan, [facility] [address] [id number] [address] [place] [address], [place] [address] Jan, [facility] [address] [id number] [address] [place] [address], [place] [address] Jan, [facility] [address] [id number] [address] [place] [address], [place] [address] Jan, [facility] [address] [id number] [address] [place] [address], [place] [address] Jan, [facility] [address] [id number] [address] [place] [address], [place] [address] Jan, [facility] [address] [id number] [facility] [place] [place] [address] Jan, [facility] [address] [id number] [facility] [place] [address] Jan, [facility] [address] [id number] [facility] [place] [place] [address] Jan, [facility] [address] [id number] [address] [place] [address], [place] [address] Jan, [facility] [address] [id number] [facility] [place] [place] [address] Jan, [facility] [address] [id number] [address] [place] [address], [place] [address] Jan, [facility] [place] [address] [id number] [address] [place] [address], [place] [address] Jan, [facility] [address] [id number] [address] [place] [address], [place] [address] Jan, [facility] [address] [id number] [address] [place] [address], [place] [address] Jan, [facility] [address] [id number] [address] [place] [address], [place] [address] Jan, [facility] [address] [id number] [address] [place] [address], [place] [address] Dec, [facility] [address] [id number] [address] [place] [address], [place] [address] Dec, [facility] [address] [id number] [address] [place] [address], [place] [address] Dec, [facility] [address] [id number] [address] [place] [address], [place] [address] 17 Dec, 2013 [facility] [address] [id number] [address] [place] [address], [place] [address] 14 Dec, 2013 [facility] [address] [id number] [address] [place] [address], [place] [address] 07 Dec, 2013 [facility] [place] [facility] [address] [id number] [address] [place] [address], [place] [address] Dec, [facility] [address] [id number] [address] [place] [address], [place] [address] Dec, [facility] [address] [id number] [address] [place] [address], [place] [address] Dec, [facility] [address] [id number] [address] [place] [address], [place] [address] Dec, [facility] [address] [id number] [address] [place] [address], [place] [address] Dec, [facility] [address] [id number] [address] [place] [address], [place] [address] Dec, [facility] [place] [address] [id number] [address] [place] [address], [place] [address] Nov, [facility] [address] [id number] [address] [place] [address], [place] [address] Nov, [facility] [place] [address] [id number] [address] [place] [address], [place] [address] Nov, [facility] [address] [id number] [address] [place] [address], [place] [address] Nov, [facility] [address] [id number] [address] [place] [address], [place] [address] Nov, [facility] [address] [id number] [address] [place] [address], [place] [address] Nov, [facility] [address] [id number] [address] [place] [address], [place] [address] Nov, [facility] [address] [id number] [address] [place] [address], [place] [address] Oct, [facility] [address] [id number] [address] [place] [address], [place] [address] Oct, [facility] [address] [id number] [address] [place] [address], [place] [address] Sep, [facility] [address] [id number] [address] [place] [address], [place] [address] Sep, [facility] [address] [id number] [address] [place] [address], [place] [address] Sep, [facility] [address] [id number] [address] [place] [address], [place] [address] Sep, [facility] [address] [id number] [address] [place] [address], [place] [address] Aug, [facility] [address] [id number] [address] [place] [address], [place] [address] Aug, [facility] [address] [id number] [address] [place] [address], [place] [address] Aug, [facility] [address] [id number] [address] [place] [address], [place] [address] Jul, [facility] [address] [id number] [address] [place] [address], [place] [address] Jul, [facility] [address] [id number] [address] [place] [address], [place] [address] Jun, [facility] [address] [id number] [address] [place] [address], [place] [address] Jun, [facility] [address] [id number] [address] [place] [address] Jun, [facility] [address] [id number] [address] [place] [address], [place] [address] May, [facility] [address] [id number] [address] [place] [address], [place] [address] May, [facility] [address] [id number] [address] [place] [address] May, [facility] [address] [id number] [address] [place] [address], [place] [address] Apr, [facility] [address] [id number] [address] [place] [address], [place] [address] Apr, [facility] [address] [id number] [address] [place] [address], [place] [address] March, [facility] [address] [id number] [address] [place] [address], [place] [address] Feb, [facility] [address] [id number] [address] [place] [address], [place] [address] Jan, [facility] [address] [id number] [address] [place] [address], [place] [address] 2013 [facility] [address] [id number] [address] [place] [address], [place] [address] 07 Dec, 2012 [facility] [address] [id number] [address] [place] [address], [place] [address] Nov, [facility] [address] [id number] [address] [place] [address], [place] [address] Oct, [facility] [address] [id number] [address] [place] [address], [place] [address] Oct, [facility] [address] [id number] [address] [place] [address], [place] [address] 30 Sep, 2012 [facility] [address] [id number] [address] [place] [address], [place] [address] 29 Sep, 2012 [facility] [address] [id number] [address] [place] [address], [place] [address] 29 Sep, 2012 [facility] [address] [id number] [address] [place] [address], [place] [address] 28 Sep, 2012 [facility] [address] [id number] [address] [place] [address], [place] [address] 13 Sep, 2012 [facility] [address] [id number] [address] [place] [address], [place] [address] 13 Sep, 2012 [facility] [address] [id number] [address] [place] [address], [place] [address] Sep, [facility] [address] [id number] [address] [place] [address], [place] [address] Sep, [facility] [address] [id number] [address] [place] [address], [place] [address] Jul, [facility] [address] [id number] [address] [place] [address], [place] [address] Jun, [facility] [address] [id number] [address] [place] [address], [place] [address] Jun, [facility] [address] [id number] [address] [place] [address], [place] [address] Jun, [facility] [address] [id number] [address] [place] [address], [place] [address] Jun, [facility] [address] [id number] [address] [place] [address], [place] [address] May, [facility] [address] [id number] [address] [place] [address], [place] [address] Apr, [facility] [address] [id number] [address] [place] [address], [place] [address] Jan, [facility] [address] [id number] [address] [place] [address], [place] [address] Dec, [facility] [address] [id number] [address] [place] [address], [place] [address] Dec, [facility] [address] [id number] [address] [place] [address], [place] [address] Nov, [facility] [address] [id number] [address] [place] [address], [place] [address] Oct, [facility] [address] [id number] [address] [place] [address], [place] [address] Oct, [facility] [address] [id number] [address] [place] [address], [place] [address] 18 Aug, 2011 [facility] [address] [id number] [address] [place] [address], [place] [address] 18 Aug, 2011 [facility] [address] [id number] [address] [place] [address], [place] [address] 18 Aug, 2011 [facility] [address] [id number] [address] [place] [address], [place] [address] 14 Aug, 2011 [facility] [address] [id number] [address] [place] [address], [place] [address] 11 Aug, 2011 [facility] [address] [id number] [address] [place] [address], [place] [address] 11 Aug, 2011 [facility] [address] [id number] [address] [place] [address], [place] [address] 19 May, 2011 [facility] [address] [id number] [address] [place] [address], [place] [address] Apr, [facility] [address] [id number] [address] [place] [address], [place] [address] 18 Feb, 2011 [facility] [address] [id number] [address] [place] [address], [place] [address] Oct, [facility] [address] [id number] [address] [place] [address], [place] [address] Oct, [facility] [address] [id number] [address] [place] [address], [place] [address] 07 Oct, 2010 [facility] [address] [id number] [address] [place] [address], [place] [address] 09 Sep, 2010 [facility] [address] [id number] [address] [place] [address], [place] [address] 26 Aug, 2010 [facility] [address] [id number] [address] [place] [address], [place] [address] 16 Jul, 2010 [facility] [address] [id number] [address] [place] [address], [place] [address] 13 May, 2010 [facility] [address] [id number] [address] [place] [address] Dec, [facility] [address] [id number] [address] [place] [phone] Nov, [facility] [address] [id number] [address] [place] [phone] Oct, [facility] [address] [id number] [address] [place] [phone] Sep, [facility] [address] [id number] [address] [place] [phone] Sep, [facility] [address] [id number] [address] [place] [id number] Jul, [facility] [address] [id number] [address] [place] [phone] Jun, [facility] [address] [facility] [id number] [address] [place] [id number] May, IMMUNIZATIONS No Known Immunizations SOCIAL HISTORY Never Assessed REASON FOR VISIT PLAN OF CARE VITAL SIGNS Height 73 in 2012-10-05 Weight 243.1 lbs 2012-10-05 Temperature 96.4 degrees Fahrenheit 2012-10-05 Heart Rate 88 bpm 2012-10-05 Respiratory Rate 24 2012-10-05 Blood pressure systolic 100 mmHg 2012-10-05 Blood pressure diastolic 84 mmHg 2012-10-05 MEDICATIONS No Known Medications RESULTS No Results [...]
--- OUTSIDE RECORDS SUMMARY | 2020-06-11 21:00 | XMS REPORT ---
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 Analysis Name Role Phone Migration, Doctor Unavailable Unavailable PROBLEMS Type Condition ICD9-CM Code LUU72-VN Code Onset Dates Condition S tatus SNOMED Code Problem Raynauds disease I73.00 Active 195 452827 Problem Venous insufficiency I87.2 Active 84383621 Problem Neuropathy G62.9 Active 407428962 Problem Hypokalemia E87.6 Active 00229977 Problem Other chronic pain G89.29 Active 8 3634417 Problem Low back pain M54.5 Active 329596 009 Problem Congenital deafness H90.5 Active 18109253 Problem Dysthymia F34.1 Active [id number] ALLERGIES No Information ENCOUNTERS Encounter Location Date Diagnosis [facility] [address] [id number] [address] [place] [id number] Jan, Abscess of left knee L02.416 [facility] [address] [id number] [address] [place] [address] Jan, Prediabetes R73.03 ; Raynaud s disease I73.00 and Venous insufficiency I87.2 [facility] [id number] [address] [place] [address] Oct, Neuropathy G62.9 ; Low back pain M54.5 and URI (upper respiratory infection) J06.9 [facility] [id number] [address] [place] [address] Jul, Raynauds disease I73.00 and Hypokalemia E87.6 [facility] [id number] [address] [place] [address] May, Medicare annual wellness vis it, initial Z00.00 ; Dysthymia F34.1 ; Raynauds disease I73.00 ; Venous insufficiency I87.2 ; Congenital deafness H90.5 and Neuropathy G62.9 [place] [id number] [address] [place] [address] Apr, [place] [id number] [place] [address] Apr, Prediabetes R73.03 ; Raynaud s disease I73.00 ; Venous insufficiency I87.2 ; Neuropathy G62.9 and Dysthymia F34.1 [place] [id number] [address] [place] [address] March, [place] [address] [address] Sep, Hyperglycemia R73.9 [place] [id number] [place] [address] Sep, Hyperglycemia R73.9 [place] [address] [address] Sep, Raynauds disease I73.00 ; Ve nous insufficiency I87.2 and Encounter for immunization Z23 [place] [id number] [place] [address] Jun, [place] [id number] [place] [address] May, [place] [address] [address] May, Other chronic pain G89.29 [place] [id number] [place] [address] May, Raynauds disease I73.00 ; Ve nous insufficiency I87.2 and Low back pain M54.5 [place] [id number] [place] [id number] 13 Dec, 2016 Raynauds disease I73.00 ; Ve nous insufficiency I87.2 ; Low back pain M54.5 and Other chronic pain G89.29 [facility] [address] [facility] [id number] [address] [place] [id number] 18 Nov, 2016 [facility] [address] [facility] [id number] [address] [place] [address] Nov, Muscle spasm M62.838 [facility] [id number] [address] [place] [phone] 16 Nov, 2016 [facility] [id number] [address] [place] [address] Oct, Folliculitis L73.9 and Venou s insufficiency I87.2 [facility] [id number] [address] [place] [address] Sep, Dermatitis L30.9 and Raynaud s disease I73.00 [facility] [id number] [address] [place] [phone] Sep, Rash and nonspecific skin er uption R21 [facility] [address] [facility] [id number] [address] [place] [address] Aug, Skin infection L08.9 [facility] [id number] [address] [place] [address] May, Infected smith L08.9 [facility] [id number] [address] [place] [address] May, Skin infection L08.9 [facility] [id number] [address] [place] [address] Dec, [facility] [address] [facility] [id number] [address] [place] [phone] Nov, [facility] [id number] [address] [place] [phone] Nov, [facility] [id number] [address] [place] [address] Nov, Raynauds disease I73.00 [facility] [address] [facility] [id number] [address] [place] [address] Nov, Raynauds disease I73.00 ; Le g cramps R25.2 ; Venous insufficiency I87.2 and Routine adult health maintenance Z00.00 [facility] [address] [facility] [id number] [address] [place] [address] Jul, Infected sebaceous cyst 706. 2 [facility] [address] [id number] [address] [place] [address] Jun, [facility] [address] [facility] [id number] [address] [place] [phone] Jun, [facility] [address] [facility] [id number] [address] [place] [address] Jun, Venous insufficiency 459.81 and Raynauds disease 443.0 [facility] [address] [facility] [id number] [address] [place] [address] Feb, [facility] [address] [facility] [id number] [address] [place] [address] Feb, [facility] [address] [facility] [id number] [address] [place] [phone] Jan, [facility] [address] [facility] [id number] [address] [place] [phone] Jan, [facility] [address] [facility] [id number] [address] [place] [phone] Dec, [facility] [address] [facility] [id number] [address] [place] [phone] Dec, [facility] [address] [facility] [id number] [address] [place] [phone] Dec, [facility] [address] [facility] [id number] [address] [place] [phone] Dec, [facility] [address] [facility] [id number] [address] [place] [phone] Nov, [facility] [address] [id number] [address] [place] [address], [place] [address] Nov, [facility] [address] [id number] [address] [place] [address], [place] [address] Oct, [facility] [address] [id number] [address] [place] [address], [place] [address] Oct, [facility] [address] [id number] [address] [place] [address], [place] [address] Aug, [facility] [address] [id number] [address] [place] [address], [place] [address] Aug, [facility] [address] [id number] [address] [place] [address], [place] [address] Aug, [facility] [address] [id number] [address] [place] [address], [place] [address] Jul, [facility] [address] [id number] [address] [place] [address], [place] [address] Jul, [facility] [address] [id number] [address] [place] [address], [place] [address] Jul, [facility] [address] [id number] [address] [place] [address], [place] [address] Jul, [facility] [address] [id number] [address] [place] [address], [place] [address] Jun, [facility] [address] [id number] [address] [place] [address], [place] [address] Jun, [facility] [address] [id number] [address] [place] [address], [place] [address] Jun, [facility] [address] [id number] [address] [place] [address], [place] [address] Jun, [facility] [address] [id number] [address] [place] [address], [place] [address] May, [facility] [address] [id number] [address] [place] [address] May, [facility] [address] [id number] [address] [place] [address] May, [facility] [address] [id number] [address] [place] [address] 15 May, 2014 [facility] [address] [id number] [address] [place] [address], [place] [address] May, [facility] [address] [id number] [address] [place] [address], [place] [address] May, [facility] [address] [id number] [address] [place] [address], [place] [address] May, [facility] [address] [id number] [address] [place] [address], [place] [address] Apr, [facility] [address] [id number] [address] [place] [address], [place] [address] Apr, [facility] [address] [id number] [address] [place] [address], [place] [address] Apr, [facility] [address] [id number] [address] [place] [address], [place] [address] Apr, [facility] [address] [id number] [address] [place] [address], [place] [address] March, [facility] [address] [id number] [address] [place] [address], [place] [address] March, [facility] [address] [id number] [address] [place] [address], [place] [address] March, [facility] [address] [id number] [address] [place] [address], [place] [address] March, [facility] [address] [id number] [address] [place] [address], [place] [address] March, [facility] [address] [id number] [address] [place] [address], [place] [address] March, [facility] [address] [id number] [address] [place] [address], [place] [address] March, [facility] [address] [id number] [address] [place] [address], [place] [address] Feb, [facility] [address] [id number] [address] [place] [address], [place] [address] Feb, [facility] [address] [place] [id number] Feb, [facility] [address] [id number] [address] [place] [address], [place] [address] Feb, [facility] [address] [id number] [address] [place] [address], [place] [address] Feb, [facility] [address] [id number] [address] [place] [address], [place] [address] Feb, [facility] [address] [id number] [address] [place] [address], [place] [address] Jan, [facility] [address] [id number] [address] [place] [address], [place] [address] Jan, [facility] [address] [id number] [address] [place] [address], [place] [address] Jan, [facility] [address] [id number] [address] [place] [address], [place] [address] Jan, [facility] [address] [id number] [address] [place] [address], [place] [address] Jan, [facility] [address] [id number] [address] [place] [address], [place] [address] Jan, [facility] [address] [id number] [address] [place] [address], [place] [address] Jan, [facility] [address] [id number] [address] [place] [address], [place] [address] Jan, [facility] [address] [id number] [address] [place] [address], [place] [address] Jan, [facility] [address] [id number] [address] [place] [address] Jan, [facility] [address] [id number] [address] [place] [address] Jan, [facility] [address] [id number] [address] [place] [address] 17 Jan, 2014 [facility] [address] [id number] [address] [place] [address], [place] [address] Jan, [facility] [address] [id number] [address] [place] [address] Jan, [facility] [address] [id number] [address] [place] [address], [place] [address] Jan, [facility] [address] [id number] [address] [place] [address], [place] [address] Jan, [facility] [address] [id number] [address] [place] [address], [place] [address] Jan, [facility] [address] [id number] [address] [place] [address], [place] [address] Jan, [facility] [address] [id number] [address] [place] [address], [place] [address] Dec, [facility] [address] [id number] [address] [place] [address], [place] [address] Dec, [facility] [address] [id number] [address] [place] [address], [place] [address] Dec, [facility] [address] [id number] [address] [place] [address], [place] [address] Dec, [facility] [address] [id number] [address] [place] [address], [place] [address] 14 Dec, 2013 [facility] [address] [id number] [address] [place] [address], [place] [address] 07 Dec, 2013 [facility] [address] [id number] [address] [place] [address], [place] [address] 07 Dec, 2013 [facility] [address] [id number] [address] [place] [address], [place] [address] Dec, [facility] [address] [id number] [address] [place] [address], [place] [address] Dec, [facility] [address] [id number] [address] [place] [address], [place] [address] Dec, [facility] [address] [id number] [address] [place] [address], [place] [address] Dec, [facility] [address] [id number] [address] [place] [address], [place] [address] Dec, [facility] [address] [id number] [address] [place] [address], [place] [address] Nov, [facility] [address] [id number] [address] [place] [address], [place] [address] Nov, [facility] [address] [id number] [address] [place] [address], [place] [address] Nov, [facility] [address] [id number] [address] [place] [address], [place] [address] Nov, [facility] [address] [id number] [address] [place] [address], [place] [address] Nov, [facility] [address] [id number] [address] [place] [address], [place] [address] Nov, [facility] [address] [id number] [address] [place] [address], [place] [address] Nov, [facility] [address] [id number] [address] [place] [address], [place] [address] Oct, [facility] [address] [id number] [address] [place] [address], [place] [address] Oct, [facility] [address] [id number] [address] [place] [address], [place] [address] Sep, [facility] [address] [id number] [address] [place] [address], [place] [address] Sep, [facility] [address] [id number] [address] [place] [address], [place] [address] Sep, [facility] [address] [id number] [address] [place] [address], [place] [address] Sep, [facility] [address] [id number] [address] [place] [address], [place] [address] Aug, [facility] [address] [id number] [address] [place] [address], [place] [address] Aug, [facility] [address] [id number] [address] [place] [address], [place] [address] Aug, [facility] [address] [id number] [address] [place] [address], [place] [address] Jul, [facility] [address] [id number] [address] [place] [address], [place] [address] Jul, [facility] [address] [id number] [address] [place] [address], [place] [address] Jun, [facility] [address] [id number] [address] [place] [address], [place] [address] Jun, [facility] [address] [id number] [address] [place] [address], [place] [address] Jun, [facility] [address] [id number] [address] [place] [address] May, [facility] [address] [id number] [address] [place] [address], [place] [address] May, [facility] [address] [id number] [address] [place] [address], [place] [address] May, [facility] [address] [id number] [address] [place] [address], [place] [address] Apr, [facility] [address] [id number] [address] [place] [address], [place] [address] 18 Apr, 2013 [facility] [address] [id number] [address] [place] [address], [place] [address] March, [facility] [address] [id number] [address] [place] [address], [place] [address] Feb, [facility] [address] [id number] [address] [place] [address], [place] [address] Jan, [facility] [address] [id number] [address] [place] [address], [place] [address] Jan, [facility] [address] [id number] [address] [place] [address], [place] [address] 07 Dec, 2012 [facility] [address] [id number] [address] [place] [address], [place] [address] Nov, [facility] [address] [id number] [address] [place] [address], [place] [address] Oct, [facility] [address] [id number] [address] [place] [address], [place] [address] Oct, [facility] [address] [id number] [address] [place] [address], [place] [address] 30 Sep, 2012 [facility] [address] [id number] [address] [place] [address], [place] [address] 29 Sep, 2012 [facility] [address] [id number] [address] [place] [address], [place] [address] 29 Sep, 2012 [facility] [address] [id number] [address] [place] [address], [place] [address] 28 Sep, 2012 [facility] [address] [id number] [address] [place] [address], [place] [address] 13 Sep, 2012 [facility] [address] [id number] [address] [place] [address], [place] [id number] 13 Sep, 2012 [facility] [address] [id number] [address] [place] [address], [place] [id number] Sep, [facility] [address] [id number] [address] [place] [address], [place] [id number] Sep, [facility] [address] [id number] [address] [place] [address], [place] [id number] Jul, [facility] [address] [id number] [address] [place] [address], [place] [id number] Jun, [facility] [address] [id number] [address] [place] [address], [place] [id number] Jun, [facility] [address] [id number] [address] [place] [address], [place] [id number] Jun, [facility] [address] [id number] [address] [place] [address], [place] [id number] Jun, [facility] [address] [id number] [address] [place] [address], [place] [id number] May, [facility] [address] [id number] [address] [place] [address], [place] [id number] Apr, [facility] [address] [id number] [address] [place] [address], [place] [id number] Jan, [facility] [address] [id number] [address] [place] [address], [place] [id number] Dec, [facility] [address] [id number] [address] [place] [address], [place] [id number] Dec, [facility] [address] [id number] [address] [place] [address], [place] [id number] Nov, [facility] [address] [id number] [address] [place] [address], [place] [id number] Oct, [facility] [address] [id number] [address] [place] [address], [place] [id number] Oct, [facility] [address] [id number] [address] [place] [address], [place] [id number] Aug, [facility] [address] [id number] [address] [place] [address], [place] [id number] 18 Aug, 2011 [facility] [address] [id number] [address] [place] [address], [place] [id number] 18 Aug, 2011 [facility] [address] [id number] [address] [place] [address], [place] [id number] 14 Aug, 2011 [facility] [address] [id number] [address] [place] [address], [place] [id number] 11 Aug, 2011 [facility] [address] [id number] [address] [place] [address], [place] [id number] 11 Aug, 2011 [facility] [address] [id number] [address] [place] [address], [place] [id number] 19 May, 2011 [facility] [address] [id number] [address] [place] [address], [place] [id number] Apr, [facility] [address] [id number] [address] [place] [address], [place] [id number] 18 Feb, 2011 [facility] [address] [id number] [address] [place] [address], [place] [id number] Oct, [facility] [address] [id number] [address] [place] [address], [place] [id number] Oct, [facility] [address] [id number] [address] [place] [address], [place] [id number] Oct, [facility] [address] [id number] [address] [place] [address], [place] [id number] 09 Sep, 2010 [facility] [address] [id number] [address] [place] [address], [place] [id number] 26 Aug, 2010 [facility] [address] [id number] [address] [place] [address], [place] [id number] 16 Jul, 2010 [facility] [address] [id number] [address] [place] [address], [place] [id number] 13 May, 2010 [facility] [address] [id number] [address] [place] [address], [place] [id number] Dec, [facility] [address] [id number] [address] [place] [id number] Nov, [facility] [address] [id number] [address] [place] [id number] Oct, [facility] [address] [id number] [address] [place] [id number] Sep, [facility] [address] [facility] [id number] [address] [place] [id number] Sep, [facility] [address] [facility] [id number] [address] [place] [id number] Jul, [facility] [address] [facility] [id number] [address] [place] [id number] Jun, [facility] [address] [facility] [id number] [address] [place] [id number] May, IMMUNIZATIONS No Known Immunizations SOCIAL HISTORY Never Assessed REASON FOR VISIT EMR-[facility] [place] PLAN OF CARE VITAL SIGNS MEDICATIONS No [...]
--- OUTSIDE RECORDS SUMMARY | 2020-06-11 21:00 | XMS REPORT ---
Author Author Jd Fagan r Organization [facility] Address Unknown Phone Unavailable Care Team Providers Care Control Equipment Electrician Name Role Phone Migration, Doctor Unavailable Unavailable PROBLEMS Type Condition ICD9-CM Code UDC95-TB Code Onset Dates Condition S tatus SNOMED Code Problem Raynauds disease I73.00 Active 195 641663 Problem Venous insufficiency I87.2 Active 82984967 Problem Neuropathy G62.9 Active 469232932 Problem Hypokalemia E87.6 Active 86707880 Problem Other chronic pain G89.29 Active 8 6343098 Problem Low back pain M54.5 Active 469648 009 Problem Congenital deafness H90.5 Active 56943647 Problem Dysthymia F34.1 Active 42710168 ALLERGIES No Information ENCOUNTERS Encounter Location Date Diagnosis [facility] [id number] [address] [place] [address] Jan, Abscess of left knee L02.416 [facility] [id number] [address] [place] [address] Jan, Prediabetes R73.03 ; Raynaud s disease I73.00 and Venous insufficiency I87.2 [facility] [id number] [address] [place] [address] Oct, Neuropathy G62.9 ; Low back pain M54.5 and URI (upper respiratory infection) J06.9 [facility] [id number] [address] [place] [address] Jul, Raynauds disease I73.00 and Hypokalemia E87.6 [facility] [id number] [place] [address] May, Medicare annual wellness vis it, initial Z00.00 ; Dysthymia F34.1 ; Raynauds disease I73.00 ; Venous insufficiency I87.2 ; Congenital deafness H90.5 and Neuropathy G62.9 [place] [id number] [place] [address] Apr, [place] [id number] [place] [address] Apr, Prediabetes R73.03 ; Raynaud s disease I73.00 ; Venous insufficiency I87.2 ; Neuropathy G62.9 and Dysthymia F34.1 [place] [id number] [place] [address] March, [place] [address] [address] Sep, Hyperglycemia R73.9 [place] [id number] [place] [address] Sep, Hyperglycemia R73.9 [place] [address] [address] Sep, Raynauds disease I73.00 ; Ve nous insufficiency I87.2 and Encounter for immunization Z23 [place] [id number] [place] [address] Jun, [place] [id number] [place] [address] May, [place] [address] [address] May, Other chronic pain G89.29 [place] [id number] [place] [address] May, Raynauds disease I73.00 ; Ve nous insufficiency I87.2 and Low back pain M54.5 [place] [id number] [place] [address] 13 Dec, 2016 Raynauds disease I73.00 ; Ve nous insufficiency I87.2 ; Low back pain M54.5 and Other chronic pain G89.29 [facility] [address] [facility] [id number] [address] [place] [address] 18 Nov, 2016 [facility] [address] [facility] [id number] [address] [place] [address] Nov, Muscle spasm M62.838 [facility] [id number] [place] [address] 16 Nov, 2016 [facility] [id number] [place] [address] Oct, Folliculitis L73.9 and Venou s insufficiency I87.2 [facility] [id number] [place] [address] Sep, Dermatitis L30.9 and Raynaud s disease I73.00 [facility] [id number] [place] [address] Sep, Rash and nonspecific skin er uption R21 [facility] [address] [facility] [id number] [address] [place] [address] Aug, Skin infection L08.9 [facility] [id number] [place] [address] May, Infected smith L08.9 [facility] [id number] [place] [address] May, Skin infection L08.9 [facility] [id number] [place] [address] Dec, [facility] [address] [facility] [id number] [address] [place] [address] Nov, [facility] [id number] [place] [address] Nov, [facility] [id number] [place] [address] Nov, Raynauds disease I73.00 [facility] [address] [facility] [id number] [address] [place] [address] Nov, Raynauds disease I73.00 ; Le g cramps R25.2 ; Venous insufficiency I87.2 and Routine adult health maintenance Z00.00 [facility] [address] [facility] [id number] [address] [place] [address] Jul, Infected sebaceous cyst 706. 2 [facility] [address] [id number] [address] [place] [address] Jun, [facility] [address] [facility] [id number] [address] [place] [address] Jun, [facility] [address] [facility] [id number] [address] [place] [address] Jun, Venous insufficiency 459.81 and Raynauds disease 443.0 [facility] [address] [facility] [id number] [address] [place] [address] Feb, [facility] [address] [facility] [id number] [address] [place] [address] Feb, [facility] [address] [facility] [id number] [address] [place] [address] Jan, [facility] [address] [facility] [id number] [address] [place] [address] Jan, [facility] [address] [facility] [id number] [address] [place] [phone] Dec, [facility] [address] [facility] [id number] [address] [place] [address] Dec, [facility] [address] [facility] [id number] [address] [place] [address] Dec, [facility] [address] [facility] [id number] [address] [place] [address] Dec, [facility] [address] [facility] [id number] [address] [place] [address] Nov, [facility] [address] [id number] [address] [place] [address], [place] [address] Nov, [facility] [address] [id number] [address] [place] [address], [place] [address] Oct, [facility] [address] [id number] [address] [place] [address], [place] [address] Oct, [facility] [address] [id number] [address] [place] [address], [place] [address] Aug, [facility] [address] [id number] [address] [place] [address], [place] [address] Aug, [facility] [address] [id number] [address] [place] [address], [place] [address] Aug, [facility] [address] [id number] [address] [place] [address], [place] [address] Jul, [facility] [address] [id number] [address] [place] [address], [place] [address] Jul, [facility] [address] [id number] [address] [place] [address], [place] [address] Jul, [facility] [address] [id number] [address] [place] [address], [place] [address] Jul, [facility] [address] [id number] [address] [place] [address], [place] [address] Jun, [facility] [address] [id number] [address] [place] [address], [place] [address] Jun, [facility] [address] [id number] [address] [place] [address], [place] [address] Jun, [facility] [address] [id number] [address] [place] [address], [place] [address] Jun, [facility] [address] [id number] [address] [place] [address], [place] [address] May, [facility] [address] [id number] [facility] [address] May, [facility] [address] [id number] [facility] [address] May, [facility] [address] [id number] [facility] [address] 15 May, 2014 [facility] [address] [id number] [address] [place] [address], [place] [address] May, [facility] [address] [id number] [address] [place] [address], [place] [address] May, [facility] [address] [id number] [address] [place] [address], [place] [address] May, [facility] [address] [id number] [address] [place] [address], [place] [address] Apr, [facility] [address] [id number] [address] [place] [address], [place] [address] Apr, [facility] [address] [id number] [address] [place] [address], [place] [address] Apr, [facility] [address] [id number] [address] [place] [address], [place] [address] Apr, [facility] [address] [id number] [address] [place] [address], [place] [address] March, [facility] [address] [id number] [address] [place] [address], [place] [address] March, [facility] [address] [id number] [address] [place] [address], [place] [address] March, [facility] [address] [id number] [address] [place] [address], [place] [address] March, [facility] [address] [id number] [address] [place] [address], [place] [address] March, [facility] [address] [id number] [address] [place] [address], [place] [address] March, [facility] [address] [id number] [address] [place] [address], [place] [address] March, [facility] [address] [id number] [address] [place] [address], [place] [address] Feb, [facility] [address] [id number] [address] [place] [address], [place] [address] Feb, [facility] [address] [place] [id number] Feb, [facility] [address] [id number] [address] [place] [address], [place] [address] Feb, [facility] [address] [id number] [address] [place] [address], [place] [address] Feb, [facility] [address] [id number] [address] [place] [address], [place] [address] Feb, [facility] [address] [id number] [address] [place] [address], [place] [address] Jan, [facility] [address] [id number] [address] [place] [address], [place] [address] Jan, [facility] [address] [id number] [address] [place] [address], [place] [address] Jan, [facility] [address] [id number] [address] [place] [address], [place] [address] Jan, [facility] [address] [id number] [address] [place] [address], [place] [address] Jan, [facility] [address] [id number] [address] [place] [address], [place] [address] Jan, [facility] [address] [id number] [address] [place] [address], [place] [address] Jan, [facility] [address] [id number] [address] [place] [address], [place] [address] Jan, [facility] [address] [id number] [address] [place] [address], [place] [address] Jan, [facility] [address] [id number] [facility] [address] Jan, [facility] [address] [id number] [facility] [address] Jan, [facility] [address] [id number] [facility] [address] 17 Jan, 2014 [facility] [address] [id number] [address] [place] [address], [place] [address] Jan, [facility] [address] [id number] [facility] [address] Jan, [facility] [address] [id number] [address] [place] [address], [place] [address] Jan, [facility] [address] [id number] [address] [place] [address], [place] [address] Jan, [facility] [address] [id number] [address] [place] [address], [place] [address] Jan, [facility] [address] [id number] [address] [place] [address], [place] [address] Jan, [facility] [address] [id number] [address] [place] [address], [place] [address] Dec, [facility] [address] [id number] [address] [place] [address], [place] [address] Dec, [facility] [address] [id number] [address] [place] [address], [place] [address] Dec, [facility] [address] [id number] [address] [place] [address], [place] [address] Dec, [facility] [address] [id number] [address] [place] [address], [place] [address] 14 Dec, 2013 [facility] [address] [id number] [address] [place] [address], [place] [address] 07 Dec, 2013 [facility] [address] [id number] [address] [place] [address], [place] [address] 07 Dec, 2013 [facility] [address] [id number] [address] [place] [address], [place] [address] Dec, [facility] [address] [id number] [address] [place] [address], [place] [address] Dec, [facility] [address] [id number] [address] [place] [address], [place] [address] Dec, [facility] [address] [id number] [address] [place] [address], [place] [address] Dec, [facility] [address] [id number] [address] [place] [address], [place] [address] Dec, [facility] [address] [id number] [address] [place] [address], [place] [address] Nov, [facility] [address] [id number] [address] [place] [address], [place] [address] Nov, [facility] [address] [id number] [address] [place] [address], [place] [address] Nov, [facility] [address] [id number] [address] [place] [address], [place] [address] Nov, [facility] [address] [id number] [address] [place] [address], [place] [address] Nov, [facility] [address] [id number] [address] [place] [address], [place] [address] Nov, [facility] [address] [id number] [address] [place] [address], [place] [address] Nov, [facility] [address] [id number] [address] [place] [address], [place] [address] Oct, [facility] [address] [id number] [address] [place] [address], [place] [address] Oct, [facility] [address] [id number] [address] [place] [address], [place] [address] Sep, [facility] [address] [id number] [address] [place] [address], [place] [address] Sep, [facility] [address] [id number] [address] [place] [address], [place] [address] Sep, [facility] [address] [id number] [address] [place] [address], [place] [address] Sep, [facility] [address] [id number] [address] [place] [address], [place] [address] Aug, [facility] [address] [id number] [address] [place] [address], [place] [address] Aug, [facility] [address] [id number] [address] [place] [address], [place] [address] Aug, [facility] [address] [id number] [address] [place] [address], [place] [address] Jul, [facility] [address] [id number] [address] [place] [address], [place] [address] Jul, [facility] [address] [id number] [address] [place] [address], [place] [address] Jun, [facility] [address] [id number] [address] [place] [address], [place] [address] Jun, [facility] [address] [id number] [address] [place] [address], [place] [address] Jun, [facility] [address] [id number] [address] [place] [address] May, [facility] [address] [id number] [address] [place] [address], [place] [address] May, [facility] [address] [id number] [address] [place] [address], [place] [address] May, [facility] [address] [id number] [address] [place] [address], [place] [address] Apr, [facility] [address] [id number] [address] [place] [address], [place] [address] 18 Apr, 2013 [facility] [address] [id number] [address] [place] [address], [place] [address] March, [facility] [address] [id number] [address] [place] [address], [place] [address] Feb, [facility] [address] [id number] [address] [place] [address], [place] [address] Jan, [facility] [address] [id number] [address] [place] [address], [place] [address] Jan, [facility] [address] [id number] [address] [place] [address], [place] [address] 07 Dec, 2012 [facility] [address] [id number] [address] [place] [address], [place] [address] Nov, [facility] [address] [id number] [address] [place] [address], [place] [address] Oct, [facility] [address] [id number] [address] [place] [address], [place] [address] Oct, [facility] [address] [id number] [address] [place] [address], [place] [address] 30 Sep, 2012 [facility] [address] [id number] [address] [place] [address], [place] [address] 29 Sep, 2012 [facility] [address] [id number] [address] [place] [address], [place] [address] 29 Sep, 2012 [facility] [address] [id number] [address] [place] [address], [place] [address] 28 Sep, 2012 [facility] [address] [id number] [address] [place] [address], [place] [address] 13 Sep, 2012 [facility] [address] [id number] [address] [place] [address], [place] [address] 13 Sep, 2012 [facility] [address] [id number] [address] [place] [address], [place] [address] Sep, [facility] [address] [id number] [address] [place] [address], [place] [address] Sep, [facility] [address] [id number] [address] [place] [address], [place] [address] Jul, [facility] [address] [id number] [address] [place] [address], [place] [address] Jun, [facility] [address] [id number] [address] [place] [address], [place] [address] Jun, [facility] [address] [id number] [address] [place] [address], [place] [address] Jun, [facility] [address] [id number] [address] [place] [address], [place] [address] Jun, [facility] [address] [id number] [address] [place] [address], [place] [address] May, [facility] [address] [id number] [address] [place] [address], [place] [address] Apr, [facility] [address] [id number] [address] [place] [address], [place] [address] Jan, [facility] [address] [id number] [address] [place] [address], [place] [address] Dec, [facility] [address] [id number] [address] [place] [address], [place] [address] Dec, [facility] [address] [id number] [address] [place] [address], [place] [address] Nov, [facility] [address] [id number] [address] [place] [address], [place] [address] Oct, [facility] [address] [id number] [address] [place] [address], [place] [address] Oct, [facility] [address] [id number] [address] [place] [address], [place] [address] Aug, [facility] [address] [id number] [address] [place] [address], [place] [address] 18 Aug, 2011 [facility] [address] [id number] [address] [place] [address], [place] [address] 18 Aug, 2011 [facility] [address] [id number] [address] [place] [address], [place] [address] 14 Aug, 2011 [facility] [address] [id number] [address] [place] [address], [place] [address] 11 Aug, 2011 [facility] [address] [id number] [address] [place] [address], [place] [address] 11 Aug, 2011 [facility] [address] [id number] [address] [place] [address], [place] [address] 19 May, 2011 [facility] [address] [id number] [address] [place] [address], [place] [address] Apr, [facility] [address] [id number] [address] [place] [address], [place] [address] 18 Feb, 2011 [facility] [address] [id number] [address] [place] [address], [place] [address] Oct, [facility] [address] [id number] [address] [place] [address], [place] [address] Oct, [facility] [address] [id number] [address] [place] [address], [place] [address] Oct, [facility] [address] [id number] [address] [place] [address], [place] [address] 09 Sep, 2010 [facility] [address] [id number] [address] [place] [address], [place] [address] 26 Aug, 2010 [facility] [address] [id number] [address] [place] [address], [place] [address] 16 Jul, 2010 [facility] [address] [id number] [address] [place] [address], [place] [address] 13 May, 2010 [facility] [address] [id number] [address] [place] [address], [place] [address] Dec, [facility] [address] [id number] [address] [place] [address] Nov, [facility] [address] [id number] [address] [place] [address] Oct, [facility] [address] [id number] [address] [place] [address] Sep, [facility] [address] [facility] [id number] [address] [place] [address] Sep, [facility] [address] [facility] [id number] [address] [place] [address] Jul, [facility] [address] [facility] [id number] [address] [place] [address] [id number] Jun, [facility] [address] [facility] [id number] [place] [id number] May, IMMUNIZATIONS No Known Immunizations SOCIAL HISTORY Never Assessed REASON FOR VISIT EMR-[facility] PLAN OF CARE VITAL SIGNS MEDICATIONS No [...]
--- OUTSIDE RECORDS SUMMARY | 2020-06-11 21:00 | XMS REPORT ---
Author Author Jd Fagan r Organization [facility] Address Unknown Phone Unavailable Care Team Providers Care Powder Hand Name Role Phone Migration, Doctor Unavailable Unavailable PROBLEMS Type Condition ICD9-CM Code SPZ88-ZG Code Onset Dates Condition S tatus SNOMED Code Problem Raynauds disease I73.00 Active 195 374651 Problem Venous insufficiency I87.2 Active 85958061 Problem Neuropathy G62.9 Active 874749384 Problem Hypokalemia E87.6 Active 55338307 Problem Other chronic pain G89.29 Active 8 2177878 Problem Low back pain M54.5 Active 886834 009 Problem Congenital deafness H90.5 Active 70685096 Problem Dysthymia F34.1 Active 77007849 ALLERGIES No Information ENCOUNTERS Encounter Location Date Diagnosis [facility] [address] [id number] [address] [place] [id number] Jan, Abscess of left knee L02.416 [facility] [address] [id number] [address] [place] [id number] Jan, Prediabetes R73.03 ; Raynaud s disease I73.00 and Venous insufficiency I87.2 [facility] [address] [id number] [address] [place] [phone] Oct, Neuropathy G62.9 ; Low back pain M54.5 and URI (upper respiratory infection) J06.9 [facility] [address] [id number] [address] [place] [phone] Jul, Raynauds disease I73.00 and Hypokalemia E87.6 [facility] [address] [id number] [address] [place] [phone] May, Medicare annual wellness vis it, initial Z00.00 ; Dysthymia F34.1 ; Raynauds disease I73.00 ; Venous insufficiency I87.2 ; Congenital deafness H90.5 and Neuropathy G62.9 [place] [address] [id number] [address] [place] [phone] Apr, [place] [id number] [place] [phone] Apr, Prediabetes R73.03 ; Raynaud s disease I73.00 ; Venous insufficiency I87.2 ; Neuropathy G62.9 and Dysthymia F34.1 [place] [address] [id number] [address] [place] [phone] March, [place] [address] [id number] Sep, Hyperglycemia R73.9 [place] [id number] [place] [phone] Sep, Hyperglycemia R73.9 [place] [address] [id number] Sep, Raynauds disease I73.00 ; Ve nous insufficiency I87.2 and Encounter for immunization Z23 [place] [id number] [place] [id number] Jun, [place] [id number] [place] [phone] May, [place] [address] [address] May, Other chronic pain G89.29 [place] [address] [id number] [place] [phone] May, Raynauds disease I73.00 ; Ve nous insufficiency I87.2 and Low back pain M54.5 [place] [address] [id number] [place] [id number] 13 Dec, 2016 Raynauds disease I73.00 ; Ve nous insufficiency I87.2 ; Low back pain M54.5 and Other chronic pain G89.29 [facility] [address] [facility] [id number] [address] [place] [id number] 18 Nov, 2016 [facility] [address] [facility] [id number] [address] [place] [phone] Nov, Muscle spasm M62.838 [facility] [address] [id number] [address] [place] [id number] 16 Nov, 2016 [facility] [address] [id number] [address] [place] [phone] Oct, Folliculitis L73.9 and Venou s insufficiency I87.2 [facility] [address] [id number] [address] [place] [phone] Sep, Dermatitis L30.9 and Raynaud s disease I73.00 [facility] [address] [id number] [address] [place] [phone] Sep, Rash and nonspecific skin er uption R21 [facility] [address] [facility] [id number] [address] [place] [phone] Aug, Skin infection L08.9 [facility] [address] [id number] [address] [place] [phone] May, Infected smith L08.9 [facility] [address] [id number] [address] [place] [phone] May, Skin infection L08.9 [facility] [address] [id number] [address] [place] [phone] Dec, [facility] [address] [facility] [id number] [address] [place] [phone] Nov, [facility] [address] [id number] [address] [place] [phone] Nov, [facility] [address] [id number] [address] [place] [phone] Nov, Raynauds disease I73.00 [facility] [address] [facility] [id number] [address] [place] [phone] Nov, Raynauds disease I73.00 ; Le g cramps R25.2 ; Venous insufficiency I87.2 and Routine adult health maintenance Z00.00 [facility] [address] [facility] [id number] [address] [place] [phone] Jul, Infected sebaceous cyst 706. 2 [facility] [address] [id number] [address] [place] [phone] Jun, [facility] [address] [facility] [id number] [address] [place] [phone] Jun, [facility] [address] [facility] [id number] [address] [place] [phone] Jun, Venous insufficiency 459.81 and Raynauds disease 443.0 [facility] [address] [facility] [id number] [address] [place] [phone] Feb, [facility] [address] [facility] [id number] [address] [place] [phone] Feb, [facility] [address] [facility] [id number] [address] [place] [phone] Jan, [facility] [address] [facility] [id number] [address] [place] [phone] Jan, [facility] [address] [facility] [id number] [address] [place] [phone] Dec, [facility] [address] [facility] [id number] [address] [place] [phone] Dec, [facility] [address] [facility] [id number] [address] [place] [phone] Dec, [facility] [address] [facility] [id number] [address] [place] [phone] Dec, [facility] [address] [facility] [id number] [address] [place] [phone] Nov, [facility] [address] [id number] [address] [place] [address], [place] [id number] Nov, [facility] [address] [id number] [address] [place] [address], [place] [id number] Oct, [facility] [address] [id number] [address] [place] [address], [place] [id number] Oct, [facility] [address] [id number] [address] [place] [address], [place] [id number] Aug, [facility] [address] [id number] [address] [place] [address], [place] [id number] Aug, [facility] [address] [id number] [address] [place] [address], [place] [id number] Aug, [facility] [address] [id number] [address] [place] [address], [place] [id number] Jul, [facility] [address] [id number] [address] [place] [address], [place] [id number] Jul, [facility] [address] [id number] [address] [place] [address], [place] [id number] Jul, [facility] [address] [id number] [address] [place] [address], [place] [id number] Jul, [facility] [address] [id number] [address] [place] [address], [place] [id number] Jun, [facility] [address] [id number] [address] [place] [address], [place] [id number] Jun, [facility] [address] [id number] [address] [place] [address], [place] [id number] Jun, [facility] [address] [id number] [address] [place] [address], [place] [id number] Jun, [facility] [address] [id number] [address] [place] [address], [place] [id number] May, [facility] [address] [id number] [facility] [place] [id number] May, [facility] [address] [id number] [facility] [place] [id number] May, [facility] [address] [id number] [facility] [place] [id number] 15 May, 2014 [facility] [address] [id number] [address] [place] [address], [place] [id number] May, [facility] [address] [id number] [address] [place] [address], [place] [address] May, [facility] [address] [id number] [address] [place] [address], [place] [id number] May, [facility] [address] [id number] [address] [place] [address], [place] [id number] Apr, [facility] [address] [id number] [address] [place] [address], [place] [id number] Apr, [facility] [address] [id number] [address] [place] [address], [place] [id number] Apr, [facility] [address] [id number] [address] [place] [address], [place] [id number] Apr, [facility] [address] [id number] [address] [place] [address], [place] [id number] March, [facility] [address] [id number] [address] [place] [address], [place] [id number] March, [facility] [address] [id number] [address] [place] [address], [place] [id number] March, [facility] [address] [id number] [address] [place] [address], [place] [id number] March, [facility] [address] [id number] [address] [place] [address], [place] [id number] March, [facility] [address] [id number] [address] [place] [address], [place] [id number] March, [facility] [address] [id number] [address] [place] [address], [place] [id number] March, [facility] [address] [id number] [address] [place] [address], [place] [id number] Feb, [facility] [address] [id number] [address] [place] [address], [place] [id number] Feb, [facility] [address] [place] [id number] Feb, [facility] [address] [id number] [address] [place] [address], [place] [id number] Feb, [facility] [address] [id number] [address] [place] [address], [place] [id number] Feb, [facility] [address] [id number] [address] [place] [address], [place] [id number] Feb, [facility] [address] [id number] [address] [place] [address], [place] [id number] Jan, [facility] [address] [id number] [address] [place] [address], [place] [id number] Jan, [facility] [address] [id number] [address] [place] [address], [place] [id number] Jan, [facility] [address] [id number] [address] [place] [address], [place] [id number] Jan, [facility] [address] [id number] [address] [place] [address], [place] [id number] Jan, [facility] [address] [id number] [address] [place] [address], [place] [id number] Jan, [facility] [address] [id number] [address] [place] [address], [place] [id number] Jan, [facility] [address] [id number] [address] [place] [address], [place] [id number] Jan, [facility] [address] [id number] [address] [place] [address], [place] [id number] Jan, [facility] [address] [id number] [facility] [place] [id number] Jan, [facility] [address] [id number] [facility] [place] [id number] Jan, [facility] [address] [id number] [facility] [place] [id number] 17 Jan, 2014 [facility] [address] [id number] [address] [place] [address], [place] [id number] Jan, [facility] [address] [id number] [facility] [place] [id number] Jan, [facility] [address] [id number] [address] [place] [address], [place] [id number] Jan, [facility] [address] [id number] [address] [place] [address], [place] [id number] Jan, [facility] [address] [id number] [address] [place] [address], [place] [id number] Jan, [facility] [address] [id number] [address] [place] [address], [place] [id number] Jan, [facility] [address] [id number] [address] [place] [address], [place] [id number] Dec, [facility] [address] [id number] [address] [place] [address], [place] [id number] Dec, [facility] [address] [id number] [address] [place] [address], [place] [id number] Dec, [facility] [address] [id number] [address] [place] [address], [place] [id number] Dec, [facility] [address] [id number] [address] [place] [address], [place] [id number] 14 Dec, 2013 [facility] [address] [id number] [address] [place] [address], [place] [id number] 07 Dec, 2013 [facility] [address] [id number] [address] [place] [address], [place] [id number] 07 Dec, 2013 [facility] [address] [id number] [address] [place] [address], [place] [id number] Dec, [facility] [address] [id number] [address] [place] [address], [place] [id number] Dec, [facility] [address] [id number] [address] [place] [address], [place] [id number] Dec, [facility] [address] [id number] [address] [place] [address], [place] [id number] Dec, [facility] [address] [id number] [address] [place] [address], [place] [id number] Dec, [facility] [address] [id number] [address] [place] [address], [place] [id number] Nov, [facility] [address] [id number] [address] [place] [address], [place] [id number] Nov, [facility] [address] [id number] [address] [place] [address], [place] [id number] Nov, [facility] [address] [id number] [address] [place] [address], [place] [id number] Nov, [facility] [address] [id number] [address] [place] [address], [place] [id number] Nov, [facility] [address] [id number] [address] [place] [address], [place] [id number] Nov, [facility] [address] [id number] [address] [place] [address], [place] [id number] Nov, [facility] [address] [id number] [address] [place] [address], [place] [id number] Oct, [facility] [address] [id number] [address] [place] [address], [place] [id number] Oct, [facility] [address] [id number] [address] [place] [address], [place] [id number] Sep, [facility] [address] [id number] [address] [place] [address], [place] [id number] Sep, [facility] [address] [id number] [address] [place] [address], [place] [id number] Sep, [facility] [address] [id number] [address] [place] [address], [place] [id number] Sep, [facility] [address] [id number] [address] [place] [address], [place] [id number] Aug, [facility] [address] [id number] [address] [place] [address], [place] [id number] Aug, [facility] [address] [id number] [address] [place] [address], [place] [id number] Aug, [facility] [address] [id number] [address] [place] [address], [place] [id number] Jul, [facility] [address] [id number] [address] [place] [address], [place] [id number] Jul, [facility] [address] [id number] [address] [place] [address], [place] [id number] Jun, [facility] [address] [id number] [address] [place] [address], [place] [id number] Jun, [facility] [address] [id number] [address] [place] [address], [place] [id number] Jun, [facility] [address] [id number] [address] [place] [id number] May, [facility] [address] [id number] [address] [place] [address], [place] [id number] May, [facility] [address] [id number] [address] [place] [address], [place] [id number] May, [facility] [address] [id number] [address] [place] [address], [place] [id number] Apr, [facility] [address] [id number] [address] [place] [address], [place] [id number] 18 Apr, 2013 [facility] [address] [id number] [address] [place] [address], [place] [id number] March, [facility] [address] [id number] [address] [place] [address], [place] [id number] Feb, [facility] [address] [id number] [address] [place] [address], [place] [id number] Jan, [facility] [address] [id number] [address] [place] [address], [place] [id number] Jan, [facility] [address] [id number] [address] [place] [address], [place] [id number] 07 Dec, 2012 [facility] [address] [id number] [address] [place] [address], [place] [id number] Nov, [facility] [address] [id number] [address] [place] [address], [place] [id number] Oct, [facility] [address] [id number] [address] [place] [address], [place] [id number] Oct, [facility] [address] [id number] [address] [place] [address], [place] [id number] 30 Sep, 2012 [facility] [address] [id number] [address] [place] [address], [place] [id number] 29 Sep, 2012 [facility] [address] [id number] [address] [place] [address], [place] [id number] 29 Sep, 2012 [facility] [address] [id number] [address] [place] [address], [place] [id number] 28 Sep, 2012 [facility] [address] [id number] [address] [place] [address], [place] [id number] 13 Sep, 2012 [facility] [address] [id number] [address] [place] [address], [place] [id number] 13 Sep, 2012 [facility] [address] [id number] [address] [place] [address], [place] [id number] Sep, [facility] [address] [id number] [address] [place] [address], [place] [id number] Sep, [facility] [address] [id number] [address] [place] [address], [place] [id number] Jul, [facility] [address] [id number] [address] [place] [address], [place] [id number] Jun, [facility] [address] [id number] [address] [place] [address], [place] [id number] Jun, [facility] [address] [id number] [address] [place] [address], [place] [id number] Jun, [facility] [address] [id number] [address] [place] [address], [place] [id number] Jun, [facility] [address] [id number] [address] [place] [address], [place] [id number] May, [facility] [address] [id number] [address] [place] [address], [place] [id number] Apr, [facility] [address] [id number] [address] [place] [address], [place] [id number] Jan, [facility] [address] [id number] [address] [place] [address], [place] [id number] Dec, [facility] [address] [id number] [address] [place] [address], [place] [id number] Dec, [facility] [address] [id number] [address] [place] [address], [place] [id number] Nov, [facility] [address] [id number] [address] [place] [address], [place] [id number] Oct, [facility] [address] [id number] [address] [place] [address], [place] [id number] Oct, [facility] [address] [id number] [address] [place] [address], [place] [id number] Aug, [facility] [address] [id number] [address] [place] [address], [place] [id number] 18 Aug, 2011 [facility] [address] [id number] [address] [place] [address], [place] [id number] 18 Aug, 2011 [facility] [address] [id number] [address] [place] [address], [place] [id number] 14 Aug, 2011 [facility] [address] [id number] [address] [place] [address], [place] [id number] 11 Aug, 2011 [facility] [address] [id number] [address] [place] [address], [place] [id number] 11 Aug, 2011 [facility] [address] [id number] [address] [place] [address], [place] [id number] 19 May, 2011 [facility] [address] [id number] [address] [place] [address], [place] [id number] Apr, [facility] [address] [id number] [address] [place] [address], [place] [id number] 18 Feb, 2011 [facility] [address] [id number] [address] [place] [address], [place] [id number] Oct, [facility] [address] [id number] [address] [place] [address], [place] [id number] Oct, [facility] [address] [id number] [address] [place] [address], [place] [id number] Oct, [facility] [address] [id number] [address] [place] [address], [place] [id number] 09 Sep, 2010 [facility] [address] [id number] [address] [place] [address], [place] [id number] 26 Aug, 2010 [facility] [address] [id number] [address] [place] [address], [place] [id number] 16 Jul, 2010 [facility] [address] [id number] [address] [place] [address], [place] [id number] 13 May, 2010 [facility] [address] [id number] [address] [place] [address], [place] [id number] Dec, [facility] [address] [id number] [address] [place] [id number] Nov, [facility] [address] [id number] [address] [place] [id number] Oct, [facility] [address] [id number] [address] [place] [id number] Sep, [facility] [address] [facility] [id number] [address] [place] [id number] Sep, [facility] [address] [facility] [id number] [address] [place] [id number] Jul, [facility] [address] [facility] [id number] [address] [place] [id number] Jun, [facility] [address] [facility] [id number] [address] [place] [id number] May, IMMUNIZATIONS No Known Immunizations SOCIAL HISTORY Never Assessed REASON FOR VISIT EMR-[facility] PLAN OF CARE VITAL SIGNS MEDICATIONS No [...]
--- OUTSIDE RECORDS SUMMARY | 2020-06-11 21:00 | XMS REPORT ---
Author Author Jd Fagan r Organization [facility] Address Unknown Phone Unavailable Care Team Providers Care Survival Specialist Name Role Phone Migration, Doctor Unavailable Unavailable PROBLEMS Type Condition ICD9-CM Code PIY94-TO Code Onset Dates Condition S tatus SNOMED Code Problem Raynauds disease I73.00 Active 195 554846 Problem Venous insufficiency I87.2 Active 34489256 Problem Neuropathy G62.9 Active 974958935 Problem Hypokalemia E87.6 Active 89019950 Problem Other chronic pain G89.29 Active 8 8512940 Problem Low back pain M54.5 Active 905489 009 Problem Congenital deafness H90.5 Active 95802672 Problem Dysthymia F34.1 Active [id number] ALLERGIES No Information ENCOUNTERS Encounter Location Date Diagnosis [facility] [address] [id number] [address] [place] [address] Jan, Abscess of left knee L02.416 [facility] [address] [id number] [address] [place] [address] Jan, Prediabetes R73.03 ; Raynaud s disease I73.00 and Venous insufficiency I87.2 [facility] [address] [id number] [address] [place] [address] Oct, Neuropathy G62.9 ; Low back pain M54.5 and URI (upper respiratory infection) J06.9 [facility] [address] [id number] [address] [place] [address] Jul, Raynauds disease I73.00 and Hypokalemia E87.6 [facility] [address] [id number] [address] [place] [address] May, Medicare annual wellness vis it, initial Z00.00 ; Dysthymia F34.1 ; Raynauds disease I73.00 ; Venous insufficiency I87.2 ; Congenital deafness H90.5 and Neuropathy G62.9 [place] [address] [id number] [address] [place] [address] Apr, [place] [id number] [place] [address] Apr, Prediabetes R73.03 ; Raynaud s disease I73.00 ; Venous insufficiency I87.2 ; Neuropathy G62.9 and Dysthymia F34.1 [place] [address] [id number] [address] [place] [address] March, [place] [address] [address] Sep, Hyperglycemia R73.9 [place] [id number] [place] [address] Sep, Hyperglycemia R73.9 [place] [address] [address] Sep, Raynauds disease I73.00 ; Ve nous insufficiency I87.2 and Encounter for immunization Z23 [place] [id number] [place] [address] Jun, [place] [id number] [place] [address] May, [place] [address] [address] May, Other chronic pain G89.29 [place] [address] [id number] [address] [place] [address] May, Raynauds disease I73.00 ; Ve nous insufficiency I87.2 and Low back pain M54.5 [place] [address] [id number] [address] [place] [address] 13 Dec, 2016 Raynauds disease I73.00 ; Ve nous insufficiency I87.2 ; Low back pain M54.5 and Other chronic pain G89.29 [facility] [address] [facility] [id number] [address] [place] [address] 18 Nov, 2016 [facility] [address] [facility] [id number] [address] [place] [address] Nov, Muscle spasm M62.838 [facility] [address] [id number] [address] [place] [address] 16 Nov, 2016 [facility] [address] [id number] [address] [place] [address] Oct, Folliculitis L73.9 and Venou s insufficiency I87.2 [facility] [address] [id number] [address] [place] [address] Sep, Dermatitis L30.9 and Raynaud s disease I73.00 [facility] [address] [id number] [address] [place] [address] Sep, Rash and nonspecific skin er uption R21 [facility] [address] [facility] [id number] [address] [place] [address] Aug, Skin infection L08.9 [facility] [address] [id number] [address] [place] [address] May, Infected smith L08.9 [facility] [address] [id number] [address] [place] [address] May, Skin infection L08.9 [facility] [address] [id number] [address] [place] [address] Dec, [facility] [address] [facility] [id number] [address] [place] [address] Nov, [facility] [address] [id number] [address] [place] [address] Nov, [facility] [address] [id number] [address] [place] [address] Nov, Raynauds disease I73.00 [facility] [address] [facility] [id number] [address] [place] [address] Nov, Raynauds disease I73.00 ; Le g cramps R25.2 ; Venous insufficiency I87.2 and Routine adult health maintenance Z00.00 [facility] [address] [facility] [id number] [address] [place] [address] Jul, Infected sebaceous cyst 706. 2 [facility] [address] [id number] [address] [place] [address] Jun, [facility] [address] [facility] [id number] [address] [place] [address] Jun, [facility] [address] [facility] [id number] [address] [place] [address] Jun, Venous insufficiency 459.81 and Raynauds disease 443.0 [facility] [address] [facility] [id number] [address] [place] [address] Feb, [facility] [address] [facility] [id number] [address] [place] [address] Feb, [facility] [address] [facility] [id number] [address] [place] [address] Jan, [facility] [address] [facility] [id number] [address] [place] [phone] Jan, [facility] [address] [facility] [id number] [address] [place] [phone] Dec, [facility] [address] [facility] [id number] [address] [place] [phone] Dec, [facility] [address] [facility] [id number] [address] [place] [phone] Dec, [facility] [address] [facility] [id number] [address] [place] [phone] Dec, [facility] [address] [facility] [id number] [address] [place] [phone] Nov, [facility] [address] [id number] [address] [place] [address], [place] [address] Nov, [facility] [address] [id number] [address] [place] [address], [place] [address] Oct, [facility] [address] [id number] [address] [place] [address], [place] [address] Oct, [facility] [address] [id number] [address] [place] [address], [place] [address] Aug, [facility] [address] [id number] [address] [place] [address], [place] [address] Aug, [facility] [address] [id number] [address] [place] [address], [place] [address] Aug, [facility] [address] [id number] [address] [place] [address], [place] [address] Jul, [facility] [address] [id number] [address] [place] [address], [place] [address] Jul, [facility] [address] [id number] [address] [place] [address], [place] [address] Jul, [facility] [address] [id number] [address] [place] [address], [place] [address] Jul, [facility] [address] [id number] [address] [place] [address], [place] [address] Jun, [facility] [address] [id number] [address] [place] [address], [place] [address] Jun, [facility] [address] [id number] [address] [place] [address], [place] [address] Jun, [facility] [address] [id number] [address] [place] [address], [place] [address] Jun, [facility] [address] [id number] [address] [place] [address], [place] [address] May, [facility] [address] [id number] [facility] [address] May, [facility] [address] [id number] [facility] [address] May, [facility] [address] [id number] [facility] [address] 15 May, 2014 [facility] [address] [id number] [address] [place] [address], [place] [address] May, [facility] [address] [id number] [address] [place] [address], [place] [address] May, [facility] [address] [id number] [address] [place] [address], [place] [address] May, [facility] [address] [id number] [address] [place] [address], [place] [address] Apr, [facility] [address] [id number] [address] [place] [address], [place] [address] Apr, [facility] [address] [id number] [address] [place] [address], [place] [address] Apr, [facility] [address] [id number] [address] [place] [address], [place] [address] Apr, [facility] [address] [id number] [address] [place] [address], [place] [address] March, [facility] [address] [id number] [address] [place] [address], [place] [address] March, [facility] [address] [id number] [address] [place] [address], [place] [address] March, [facility] [address] [id number] [address] [place] [address], [place] [address] March, [facility] [address] [id number] [address] [place] [address], [place] [address] March, [facility] [address] [id number] [address] [place] [address], [place] [address] March, [facility] [address] [id number] [address] [place] [address], [place] [address] March, [facility] [address] [id number] [address] [place] [address], [place] [address] Feb, [facility] [address] [id number] [address] [place] [address], [place] [address] Feb, [facility] [address] [place] [id number] Feb, [facility] [address] [id number] [address] [place] [address], [place] [address] Feb, [facility] [address] [id number] [address] [place] [address], [place] [address] Feb, [facility] [address] [id number] [address] [place] [address], [place] [address] Feb, [facility] [address] [id number] [address] [place] [address], [place] [address] Jan, [facility] [address] [id number] [address] [place] [address], [place] [address] Jan, [facility] [address] [id number] [address] [place] [address], [place] [address] Jan, [facility] [address] [id number] [address] [place] [address], [place] [address] Jan, [facility] [address] [id number] [address] [place] [address], [place] [address] Jan, [facility] [address] [id number] [address] [place] [address], [place] [address] Jan, [facility] [address] [id number] [address] [place] [address], [place] [address] Jan, [facility] [address] [id number] [address] [place] [address], [place] [address] Jan, [facility] [address] [id number] [address] [place] [address], [place] [address] Jan, [facility] [address] [id number] [facility] [address] Jan, [facility] [address] [id number] [facility] [address] Jan, [facility] [address] [id number] [facility] [address] 17 Jan, 2014 [facility] [address] [id number] [address] [place] [address], [place] [address] Jan, [facility] [address] [id number] [facility] [address] Jan, [facility] [address] [id number] [address] [place] [address], [place] [address] Jan, [facility] [address] [id number] [address] [place] [address], [place] [address] Jan, [facility] [address] [id number] [address] [place] [address], [place] [address] Jan, [facility] [address] [id number] [address] [place] [address], [place] [address] Jan, [facility] [address] [id number] [address] [place] [address], [place] [address] Dec, [facility] [address] [id number] [address] [place] [address], [place] [address] Dec, [facility] [address] [id number] [address] [place] [address], [place] [address] Dec, [facility] [address] [id number] [address] [place] [address], [place] [address] Dec, [facility] [address] [id number] [address] [place] [address], [place] [address] 14 Dec, 2013 [facility] [address] [id number] [address] [place] [address], [place] [address] 07 Dec, 2013 [facility] [address] [id number] [address] [place] [address], [place] [address] 07 Dec, 2013 [facility] [address] [id number] [address] [place] [address], [place] [address] Dec, [facility] [address] [id number] [address] [place] [address], [place] [address] Dec, [facility] [address] [id number] [address] [place] [address], [place] [address] Dec, [facility] [address] [id number] [address] [place] [address], [place] [address] Dec, [facility] [address] [id number] [address] [place] [address], [place] [address] Dec, [facility] [address] [id number] [address] [place] [address], [place] [address] Nov, [facility] [address] [id number] [address] [place] [address], [place] [address] Nov, [facility] [address] [id number] [address] [place] [address], [place] [address] Nov, [facility] [address] [id number] [address] [place] [address], [place] [address] Nov, [facility] [address] [id number] [address] [place] [address], [place] [address] Nov, [facility] [address] [id number] [address] [place] [address], [place] [address] Nov, [facility] [address] [id number] [address] [place] [address], [place] [address] Nov, [facility] [address] [id number] [address] [place] [address], [place] [address] Oct, [facility] [address] [id number] [address] [place] [address], [place] [address] Oct, [facility] [address] [id number] [address] [place] [address], [place] [address] Sep, [facility] [address] [id number] [address] [place] [address], [place] [address] Sep, [facility] [address] [id number] [address] [place] [address], [place] [address] Sep, [facility] [address] [id number] [address] [place] [address], [place] [address] Sep, [facility] [address] [id number] [address] [place] [address], [place] [address] Aug, [facility] [address] [id number] [address] [place] [address], [place] [address] Aug, [facility] [address] [id number] [address] [place] [address], [place] [address] Aug, [facility] [address] [id number] [address] [place] [address], [place] [address] Jul, [facility] [address] [id number] [address] [place] [address], [place] [address] Jul, [facility] [address] [id number] [address] [place] [address], [place] [address] Jun, [facility] [address] [id number] [address] [place] [address], [place] [address] Jun, [facility] [address] [id number] [address] [place] [address], [place] [address] Jun, [facility] [address] [id number] [address] [place] [address] May, [facility] [address] [id number] [address] [place] [address], [place] [address] May, [facility] [address] [id number] [address] [place] [address], [place] [address] May, [facility] [address] [id number] [address] [place] [address], [place] [address] Apr, [facility] [address] [id number] [address] [place] [address], [place] [address] 18 Apr, 2013 [facility] [address] [id number] [address] [place] [address], [place] [address] March, [facility] [address] [id number] [address] [place] [address], [place] [address] Feb, [facility] [address] [id number] [address] [place] [address], [place] [address] Jan, [facility] [address] [id number] [address] [place] [address], [place] [address] Jan, [facility] [address] [id number] [address] [place] [address], [place] [address] 07 Dec, 2012 [facility] [address] [id number] [address] [place] [address], [place] [address] Nov, [facility] [address] [id number] [address] [place] [address], [place] [address] Oct, [facility] [address] [id number] [address] [place] [address], [place] [address] Oct, [facility] [address] [id number] [address] [place] [address], [place] [address] 30 Sep, 2012 [facility] [address] [id number] [address] [place] [address], [place] [address] 29 Sep, 2012 [facility] [address] [id number] [address] [place] [address], [place] [address] 29 Sep, 2012 [facility] [address] [id number] [address] [place] [address], [place] [address] 28 Sep, 2012 [facility] [address] [id number] [address] [place] [address], [place] [address] 13 Sep, 2012 [facility] [address] [id number] [address] [place] [address], [place] [address] 13 Sep, 2012 [facility] [address] [id number] [address] [place] [address], [place] [id number] Sep, [facility] [address] [id number] [address] [place] [address], [place] [id number] Sep, [facility] [address] [id number] [address] [place] [address], [place] [id number] Jul, [facility] [address] [id number] [address] [place] [address], [place] [id number] Jun, [facility] [address] [id number] [address] [place] [address], [place] [id number] Jun, [facility] [address] [id number] [address] [place] [address], [place] [address] Jun, [facility] [address] [id number] [address] [place] [address], [place] [id number] Jun, [facility] [address] [id number] [address] [place] [address], [place] [id number] May, [facility] [address] [id number] [address] [place] [address], [place] [id number] Apr, [facility] [address] [id number] [address] [place] [address], [place] [id number] Jan, [facility] [address] [id number] [address] [place] [address], [place] [id number] Dec, [facility] [address] [id number] [address] [place] [address], [place] [id number] Dec, [facility] [address] [id number] [address] [place] [address], [place] [id number] Nov, [facility] [address] [id number] [address] [place] [address], [place] [address] Oct, [facility] [address] [id number] [address] [place] [address], [place] [address] Oct, [facility] [address] [id number] [address] [place] [address], [place] [id number] Aug, [facility] [address] [id number] [address] [place] [address], [place] [id number] 18 Aug, 2011 [facility] [address] [id number] [address] [place] [address], [place] [id number] 18 Aug, 2011 [facility] [address] [id number] [address] [place] [address], [place] [id number] 14 Aug, 2011 [facility] [address] [id number] [address] [place] [address], [place] [id number] 11 Aug, 2011 [facility] [address] [id number] [address] [place] [address], [place] [id number] 11 Aug, 2011 [facility] [address] [id number] [address] [place] [address], [place] [id number] 19 May, 2011 [facility] [address] [id number] [address] [place] [address], [place] [id number] Apr, [facility] [address] [id number] [address] [place] [address], [place] [id number] 18 Feb, 2011 [facility] [address] [id number] [address] [place] [address], [place] [id number] Oct, [facility] [address] [id number] [address] [place] [address], [place] [id number] Oct, [facility] [address] [id number] [address] [place] [address], [place] [id number] Oct, [facility] [address] [id number] [address] [place] [address], [place] [id number] 09 Sep, 2010 [facility] [address] [id number] [address] [place] [address], [place] [id number] 26 Aug, 2010 [facility] [address] [id number] [address] [place] [address], [place] [id number] 16 Jul, 2010 [facility] [address] [id number] [address] [place] [address], [place] [id number] 13 May, 2010 [facility] [address] [id number] [address] [place] [address], [place] [id number] Dec, [facility] [address] [id number] [address] [place] [id number] Nov, [facility] [address] [id number] [address] [place] [id number] Oct, [facility] [address] [id number] [address] [place] [id number] Sep, [facility] [address] [facility] [id number] [address] [place] [id number] Sep, [facility] [address] [facility] [id number] [address] [place] [id number] Jul, [facility] [address] [facility] [id number] [address] [place] [id number] Jun, [facility] [address] [facility] [id number] [address] [place] [id number] May, IMMUNIZATIONS No Known Immunizations SOCIAL HISTORY Never Assessed REASON FOR VISIT EMR-[facility] [place]AN OF CARE VITAL SIGNS MEDICATIONS No [...]
--- OUTSIDE RECORDS SUMMARY | 2020-06-11 21:00 | XMS REPORT ---
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 [employer] Name Role Phone Migration, Doctor Unavailable Unavailable PROBLEMS Type Condition ICD9-CM Code [id number] Code Onset Dates Condition S tatus SNOMED Code Problem Raynauds disease I73.00 Active 195 134077 Problem Venous insufficiency I87.2 Active 81208100 Problem Neuropathy G62.9 Active 163984171 Problem Hypokalemia E87.6 Active 88286696 Problem Other chronic pain G89.29 Active 8 7088924 Problem Low back pain M54.5 Active 004184 009 Problem Congenital deafness H90.5 Active 66324018 Problem Dysthymia F34.1 Active 33126900 ALLERGIES No Information ENCOUNTERS Encounter Location Date Diagnosis [facility] [id number] [address] [place] [address] Jan, Abscess of left knee L02.416 [facility] [address] [id number] [address] [place] [address] Jan, Prediabetes R73.03 ; Raynaud s disease I73.00 and Venous insufficiency I87.2 [facility] [id number] [place] [address] Oct, Neuropathy G62.9 ; Low back pain M54.5 and URI (upper respiratory infection) J06.9 [facility] [id number] [address] [place] [address] Jul, Raynauds disease I73.00 and Hypokalemia E87.6 [facility] [id number] [place] [address] May, Medicare annual wellness vis it, initial Z00.00 ; Dysthymia F34.1 ; Raynauds disease I73.00 ; Venous insufficiency I87.2 ; Congenital deafness H90.5 and Neuropathy G62.9 [place] [id number] [place] [address] Apr, [place] [id number] [place] [address] Apr, Prediabetes R73.03 ; Raynaud s disease I73.00 ; Venous insufficiency I87.2 ; Neuropathy G62.9 and Dysthymia F34.1 [place] [id number] [place] [address] March, [place] [address] [address] Sep, Hyperglycemia R73.9 [place] [id number] [place] [address] Sep, Hyperglycemia R73.9 [place] [address] [address] Sep, Raynauds disease I73.00 ; Ve nous insufficiency I87.2 and Encounter for immunization Z23 [place] [id number] [place] [address] Jun, [place] [id number] [place] [address] May, [place] [address] [address] May, Other chronic pain G89.29 [place] [id number] [place] [address] May, Raynauds disease I73.00 ; Ve nous insufficiency I87.2 and Low back pain M54.5 [place] [id number] [place] [address] 13 Dec, 2016 Raynauds disease I73.00 ; Ve nous insufficiency I87.2 ; Low back pain M54.5 and Other chronic pain G89.29 [facility] [address] [facility] [id number] [address] [place] [address] 18 Nov, 2016 [facility] [address] [facility] [id number] [address] [place] [address] Nov, Muscle spasm M62.838 [facility] [id number] [place] [address] 16 Nov, 2016 [facility] [id number] [place] [address] Oct, Folliculitis L73.9 and Venou s insufficiency I87.2 [facility] [id number] [place] [address] Sep, Dermatitis L30.9 and Raynaud s disease I73.00 [facility] [id number] [place] [address] Sep, Rash and nonspecific skin er uption R21 [facility] [address] [facility] [id number] [address] [place] [address] Aug, Skin infection L08.9 [facility] [id number] [place] [address] May, Infected smith L08.9 [facility] [id number] [place] [address] May, Skin infection L08.9 [facility] [id number] [place] [address] Dec, [facility] [address] [facility] [id number] [address] [place] [address] Nov, [facility] [id number] [place] [address] Nov, [facility] [id number] [place] [address] Nov, Raynauds disease I73.00 [facility] [address] [facility] [id number] [address] [place] [address] Nov, Raynauds disease I73.00 ; Le g cramps R25.2 ; Venous insufficiency I87.2 and Routine adult health maintenance Z00.00 [facility] [address] [facility] [id number] [address] [place] [address] Jul, Infected sebaceous cyst 706. 2 [facility] [address] [id number] [address] [place] [address] Jun, [facility] [address] [facility] [id number] [address] [place] [address] Jun, [facility] [address] [facility] [id number] [address] [place] [address] Jun, Venous insufficiency 459.81 and Raynauds disease 443.0 [facility] [address] [facility] [id number] [address] [place] [address] Feb, [facility] [address] [facility] [id number] [address] [place] [address] Feb, [facility] [address] [facility] [id number] [address] [place] [address] Jan, [facility] [address] [facility] [id number] [address] [place] [address] Jan, [facility] [address] [facility] [id number] [address] [place] [address] Dec, [facility] [address] [facility] [id number] [address] [place] [address] Dec, [facility] [address] [facility] [id number] [address] [place] [address] Dec, [facility] [address] [facility] [id number] [address] [place] [address] Dec, [facility] [address] [facility] [id number] [address] [place] [address] Nov, [facility] [address] [id number] [address] [place] [address], [place] [address] Nov, [facility] [address] [id number] [address] [place] [address], [place] [address] Oct, [facility] [address] [id number] [address] [place] [address], [place] [address] Oct, [facility] [address] [id number] [address] [place] [address], [place] [address] Aug, [facility] [address] [id number] [address] [place] [address], [place] [address] Aug, [facility] [address] [id number] [address] [place] [address], [place] [address] Aug, [facility] [address] [id number] [address] [place] [address], [place] [address] Jul, [facility] [address] [id number] [address] [place] [address], [place] [address] Jul, [facility] [address] [id number] [address] [place] [address], [place] [address] Jul, [facility] [address] [id number] [address] [place] [address], [place] [address] Jul, [facility] [address] [id number] [address] [place] [address], [place] [address] Jun, [facility] [address] [id number] [address] [place] [address], [place] [address] Jun, [facility] [address] [id number] [address] [place] [address], [place] [address] Jun, [facility] [address] [id number] [address] [place] [address], [place] [address] Jun, [facility] [address] [id number] [address] [place] [address], [place] [address] May, [facility] [address] [id number] [facility] [place] [address] May, [facility] [address] [id number] [facility] [place] [address] May, [facility] [address] [id number] [facility] [place] [address] 15 May, 2014 [facility] [address] [id number] [address] [place] [address], [place] [address] May, [facility] [address] [id number] [address] [place] [address], [place] [address] May, [facility] [address] [id number] [address] [place] [address], [place] [address] May, [facility] [address] [id number] [address] [place] [address], [place] [address] Apr, [facility] [address] [id number] [address] [place] [address], [place] [address] Apr, [facility] [address] [id number] [address] [place] [address], [place] [address] Apr, [facility] [address] [id number] [address] [place] [address], [place] [address] Apr, [facility] [address] [id number] [address] [place] [address], [place] [address] March, [facility] [address] [id number] [address] [place] [address], [place] [address] March, [facility] [address] [id number] [address] [place] [address], [place] [address] March, [facility] [address] [id number] [address] [place] [address], [place] [address] March, [facility] [address] [id number] [address] [place] [address], [place] [address] March, [facility] [address] [id number] [address] [place] [address], [place] [address] March, [facility] [address] [id number] [address] [place] [address], [place] [address] March, [facility] [address] [id number] [address] [place] [address], [place] [address] Feb, [facility] [address] [id number] [address] [place] [address], [place] [address] Feb, [facility] [address] [place] [id number] Feb, [facility] [address] [id number] [address] [place] [address], [place] [address] Feb, [facility] [address] [id number] [address] [place] [address], [place] [address] Feb, [facility] [address] [id number] [address] [place] [address], [place] [address] Feb, [facility] [address] [id number] [address] [place] [address], [place] [address] Jan, [facility] [address] [id number] [address] [place] [address], [place] [address] Jan, [facility] [address] [id number] [address] [place] [address], [place] [address] Jan, [facility] [address] [id number] [address] [place] [address], [place] [address] Jan, [facility] [address] [id number] [address] [place] [address], [place] [address] Jan, [facility] [address] [id number] [address] [place] [address], [place] [address] Jan, [facility] [address] [id number] [address] [place] [address], [place] [address] Jan, [facility] [address] [id number] [address] [place] [address], [place] [address] Jan, [facility] [address] [id number] [address] [place] [address], [place] [address] Jan, [facility] [address] [id number] [facility] [place] [address] Jan, [facility] [address] [id number] [facility] [place] [address] Jan, [facility] [address] [id number] [facility] [place] [address] 17 Jan, 2014 [facility] [address] [id number] [address] [place] [address], [place] [address] Jan, [facility] [address] [id number] [facility] [place] [address] Jan, [facility] [address] [id number] [address] [place] [address], [place] [address] Jan, [facility] [address] [id number] [address] [place] [address], [place] [address] Jan, [facility] [address] [id number] [address] [place] [address], [place] [address] Jan, [facility] [address] [id number] [address] [place] [address], [place] [address] Jan, [facility] [address] [id number] [address] [place] [address], [place] [address] Dec, [facility] [address] [id number] [address] [place] [address], [place] [address] Dec, [facility] [address] [id number] [address] [place] [address], [place] [address] Dec, [facility] [address] [id number] [address] [place] [address], [place] [address] Dec, [facility] [address] [id number] [address] [place] [address], [place] [address] 14 Dec, 2013 [facility] [address] [id number] [address] [place] [address], [place] [address] 07 Dec, 2013 [facility] [address] [id number] [address] [place] [address], [place] [address] 07 Dec, 2013 [facility] [address] [id number] [address] [place] [address], [place] [address] Dec, [facility] [address] [id number] [address] [place] [address], [place] [address] Dec, [facility] [address] [id number] [address] [place] [address], [place] [address] Dec, [facility] [address] [id number] [address] [place] [address], [place] [address] Dec, [facility] [address] [id number] [address] [place] [address], [place] [address] Dec, [facility] [address] [id number] [address] [place] [address], [place] [address] Nov, [facility] [address] [id number] [address] [place] [address], [place] [address] Nov, [facility] [address] [id number] [address] [place] [address], [place] [address] Nov, [facility] [address] [id number] [address] [place] [address], [place] [address] Nov, [facility] [address] [id number] [address] [place] [address], [place] [address] Nov, [facility] [address] [id number] [address] [place] [address], [place] [address] Nov, [facility] [address] [id number] [address] [place] [address], [place] [address] Nov, [facility] [address] [id number] [address] [place] [address], [place] [address] Oct, [facility] [address] [id number] [address] [place] [address], [place] [address] Oct, [facility] [address] [id number] [address] [place] [address], [place] [address] Sep, [facility] [address] [id number] [address] [place] [address], [place] [address] Sep, [facility] [address] [id number] [address] [place] [address], [place] [address] Sep, [facility] [address] [id number] [address] [place] [address], [place] [address] Sep, [facility] [address] [id number] [address] [place] [address], [place] [address] Aug, [facility] [address] [id number] [address] [place] [address], [place] [address] Aug, [facility] [address] [id number] [address] [place] [address], [place] [address] Aug, [facility] [address] [id number] [address] [place] [address], [place] [address] Jul, [facility] [address] [id number] [address] [place] [address], [place] [address] Jul, [facility] [address] [id number] [address] [place] [address], [place] [address] Jun, [facility] [address] [id number] [address] [place] [address], [place] [address] Jun, [facility] [address] [id number] [address] [place] [address], [place] [address] Jun, [facility] [address] [id number] [address] [place] [address] May, [facility] [address] [id number] [address] [place] [address], [place] [address] May, [facility] [address] [id number] [address] [place] [address], [place] [address] May, [facility] [address] [id number] [address] [place] [address], [place] [address] Apr, [facility] [address] [id number] [address] [place] [address], [place] [address] 18 Apr, 2013 [facility] [address] [id number] [address] [place] [address], [place] [address] March, [facility] [address] [id number] [address] [place] [address], [place] [address] Feb, [facility] [address] [id number] [address] [place] [address], [place] [address] Jan, [facility] [address] [id number] [address] [place] [address], [place] [address] Jan, [facility] [address] [id number] [address] [place] [address], [place] [address] 07 Dec, 2012 [facility] [address] [id number] [address] [place] [address], [place] [address] Nov, [facility] [address] [id number] [address] [place] [address], [place] [address] Oct, [facility] [address] [id number] [address] [place] [address], [place] [address] Oct, [facility] [address] [id number] [address] [place] [address], [place] [address] 30 Sep, 2012 [facility] [address] [id number] [address] [place] [address], [place] [address] 29 Sep, 2012 [facility] [address] [id number] [address] [place] [address], [place] [address] 29 Sep, 2012 [facility] [address] [id number] [address] [place] [address], [place] [address] 28 Sep, 2012 [facility] [address] [id number] [address] [place] [address], [place] [address] 13 Sep, 2012 [facility] [address] [id number] [address] [place] [address], [place] [address] 13 Sep, 2012 [facility] [address] [id number] [address] [place] [address], [place] [address] Sep, [facility] [address] [id number] [address] [place] [address], [place] [address] Sep, [facility] [address] [id number] [address] [place] [address], [place] [address] Jul, [facility] [address] [id number] [address] [place] [address], [place] [address] Jun, [facility] [address] [id number] [address] [place] [address], [place] [address] Jun, [facility] [address] [id number] [address] [place] [address], [place] [address] Jun, [facility] [address] [id number] [address] [place] [address], [place] [address] Jun, [facility] [address] [id number] [address] [place] [address], [place] [address] May, [facility] [address] [id number] [address] [place] [address], [place] [address] Apr, [facility] [address] [id number] [address] [place] [address], [place] [address] Jan, [facility] [address] [id number] [address] [place] [address], [place] [address] Dec, [facility] [address] [id number] [address] [place] [address], [place] [address] Dec, [facility] [address] [id number] [address] [place] [address], [place] [address] Nov, [facility] [address] [id number] [address] [place] [address], [place] [address] Oct, [facility] [address] [id number] [address] [place] [address], [place] [address] Oct, [facility] [address] [id number] [address] [place] [address], [place] [address] Aug, [facility] [address] [id number] [address] [place] [address], [place] [address] 18 Aug, 2011 [facility] [address] [id number] [address] [place] [address], [place] [address] 18 Aug, 2011 [facility] [address] [id number] [address] [place] [address], [place] [address] 14 Aug, 2011 [facility] [address] [id number] [address] [place] [address], [place] [address] 11 Aug, 2011 [facility] [address] [id number] [address] [place] [address], [place] [address] 11 Aug, 2011 [facility] [address] [id number] [address] [place] [address], [place] [address] 19 May, 2011 [facility] [address] [id number] [address] [place] [address], [place] [address] Apr, [facility] [address] [id number] [address] [place] [address], [place] [address] 18 Feb, 2011 [facility] [address] [id number] [address] [place] [address], [place] [address] Oct, [facility] [address] [id number] [address] [place] [address], [place] [address] Oct, [facility] [address] [id number] [address] [place] [address], [place] [address] Oct, [facility] [address] [id number] [address] [place] [address], [place] [address] 09 Sep, 2010 [facility] [address] [id number] [address] [place] [address], [place] [address] 26 Aug, 2010 [facility] [address] [id number] [address] [place] [address], [place] [address] 16 Jul, 2010 [facility] [address] [id number] [address] [place] [address], [place] [address] 13 May, 2010 [facility] [address] [id number] [address] [place] [address], [place] [address] Dec, [facility] [address] [id number] [address] [place] [address] Nov, [facility] [address] [id number] [address] [place] [address] Oct, [facility] [address] [id number] [address] [place] [address] Sep, [facility] [address] [facility] [id number] [address] [place] [id number] Sep, [facility] [address] [facility] [id number] [address] [place] [address] Jul, [facility] [address] [facility] [id number] [address] [place] [id number] Jun, [facility] [address] [facility] [id number] [address] [place] [id number] May, IMMUNIZATIONS No Known Immunizations SOCIAL HISTORY Never Assessed REASON FOR VISIT [place] [place] VITAL SIGNS MEDICATIONS No [...]
--- OUTSIDE RECORDS SUMMARY | 2020-06-11 21:01 | XMS REPORT ---
Author Author Jd Fagan r Organization 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 Name Role Phone Migration, Doctor Unavailable Unavailable PROBLEMS Type Condition ICD9-CM Code IEC50-UN Code Onset Dates Condition S tatus SNOMED Code Problem Raynauds disease I73.00 Active 195 670863 Problem Venous insufficiency I87.2 Active 09401117 Problem Neuropathy G62.9 Active 797440567 Problem Hypokalemia E87.6 Active 66072040 Problem Other chronic pain G89.29 Active 8 3009937 Problem Low back pain M54.5 Active 979112 009 Problem Congenital deafness H90.5 Active 28209202 Problem Dysthymia F34.1 Active [id number] ALLERGIES No Information ENCOUNTERS Encounter Location Date Diagnosis [facility] [address] [id number] [address] [place] [address] Jan, Abscess of left knee L02.416 [facility] [address] [id number] [address] [place] [address] Jan, Prediabetes R73.03 ; Raynaud s disease I73.00 and Venous insufficiency I87.2 [facility] [id number] [address] [place] [address] Oct, Neuropathy G62.9 ; Low back pain M54.5 and URI (upper respiratory infection) J06.9 [facility] [id number] [address] [place] [address] Jul, Raynauds disease I73.00 and Hypokalemia E87.6 [facility] [id number] [address] [place] [address] May, Medicare annual wellness vis it, initial Z00.00 ; Dysthymia F34.1 ; Raynauds disease I73.00 ; Venous insufficiency I87.2 ; Congenital deafness H90.5 and Neuropathy G62.9 [place] [id number] [address] [place] [address] Apr, [place] [id number] [place] [address] Apr, Prediabetes R73.03 ; Raynaud s disease I73.00 ; Venous insufficiency I87.2 ; Neuropathy G62.9 and Dysthymia F34.1 [place] [id number] [address] [place] [address] March, [place] [address] [address] Sep, Hyperglycemia R73.9 [place] [id number] [place] [address] Sep, Hyperglycemia R73.9 [place] [address] [address] Sep, Raynauds disease I73.00 ; Ve nous insufficiency I87.2 and Encounter for immunization Z23 [place] [id number] [place] [address] Jun, [place] [id number] [place] [address] May, [place] [address] [address] May, Other chronic pain G89.29 [place] [id number] [address] [place] [address] May, Raynauds disease I73.00 ; Ve nous insufficiency I87.2 and Low back pain M54.5 [place] [id number] [place] [address] 13 Dec, 2016 Raynauds disease I73.00 ; Ve nous insufficiency I87.2 ; Low back pain M54.5 and Other chronic pain G89.29 [facility] [address] [facility] [id number] [address] [place] [address] 18 Nov, 2016 [facility] [address] [facility] [id number] [address] [place] [address] Nov, Muscle spasm M62.838 [facility] [id number] [address] [place] [address] 16 Nov, 2016 [facility] [id number] [address] [place] [address] Oct, Folliculitis L73.9 and Venou s insufficiency I87.2 [facility] [id number] [place] [address] Sep, Dermatitis L30.9 and Raynaud s disease I73.00 [facility] [id number] [address] [place] [address] Sep, Rash and nonspecific skin er uption R21 [facility] [address] [facility] [id number] [address] [place] [address] Aug, Skin infection L08.9 [facility] [id number] [address] [place] [address] May, Infected smith L08.9 [facility] [id number] [address] [place] [address] May, Skin infection L08.9 [facility] [id number] [place] [address] Dec, [facility] [address] [facility] [id number] [address] [place] [address] Nov, [facility] [id number] [address] [place] [address] Nov, [facility] [id number] [address] [place] [address] Nov, Raynauds disease I73.00 [facility] [address] [facility] [id number] [address] [place] [address] Nov, Raynauds disease I73.00 ; Le g cramps R25.2 ; Venous insufficiency I87.2 and Routine adult health maintenance Z00.00 [facility] [address] [facility] [id number] [address] [place] [address] Jul, Infected sebaceous cyst 706. 2 [facility] [address] [id number] [address] [place] [address] Jun, [facility] [address] [facility] [id number] [address] [place] [address] Jun, [facility] [address] [facility] [id number] [address] [place] [address] Jun, Venous insufficiency 459.81 and Raynauds disease 443.0 [facility] [address] [facility] [id number] [address] [place] [address] Feb, [facility] [address] [facility] [id number] [address] [place] [address] Feb, [facility] [address] [facility] [id number] [address] [place] [address] Jan, [facility] [address] [facility] [id number] [address] [place] [address] Jan, [facility] [address] [facility] [id number] [address] [place] [address] Dec, [facility] [address] [facility] [id number] [address] [place] [address] Dec, [facility] [address] [facility] [id number] [address] [place] [address] Dec, [facility] [address] [facility] [id number] [address] [place] [address] Dec, [facility] [address] [facility] [id number] [address] [place] [address] Nov, [facility] [address] [id number] [address] [place] [address], [place] [address] Nov, [facility] [address] [id number] [address] [place] [address], [place] [address] Oct, [facility] [address] [id number] [address] [place] [address], [place] [address] Oct, [facility] [address] [id number] [address] [place] [address], [place] [address] Aug, [facility] [address] [id number] [address] [place] [address], [place] [address] Aug, [facility] [address] [id number] [address] [place] [address], [place] [address] Aug, [facility] [address] [id number] [address] [place] [address], [place] [address] Jul, [facility] [address] [id number] [address] [place] [address], [place] [address] Jul, [facility] [address] [id number] [address] [place] [address], [place] [address] Jul, [facility] [address] [id number] [address] [place] [address], [place] [address] Jul, [facility] [address] [id number] [address] [place] [address], [place] [address] Jun, [facility] [address] [id number] [address] [place] [address], [place] [address] Jun, [facility] [address] [id number] [address] [place] [address], [place] [address] Jun, [facility] [address] [id number] [address] [place] [address], [place] [address] Jun, [facility] [address] [id number] [address] [place] [address], [place] [address] May, [facility] [address] [id number] [facility] [place] [address] May, [facility] [address] [id number] [facility] [place] [address] May, [facility] [address] [id number] [facility] [place] [address] 15 May, 2014 [facility] [address] [id number] [address] [place] [address], [place] [address] May, [facility] [address] [id number] [address] [place] [address], [place] [address] May, [facility] [address] [id number] [address] [place] [address], [place] [address] May, [facility] [address] [id number] [address] [place] [address], [place] [address] Apr, [facility] [address] [id number] [address] [place] [address], [place] [address] Apr, [facility] [address] [id number] [address] [place] [address], [place] [address] Apr, [facility] [address] [id number] [address] [place] [address], [place] [address] Apr, [facility] [address] [id number] [address] [place] [address], [place] [address] March, [facility] [address] [id number] [address] [place] [address], [place] [address] March, [facility] [address] [id number] [address] [place] [address], [place] [address] March, [facility] [address] [id number] [address] [place] [address], [place] [address] March, [facility] [address] [id number] [address] [place] [address], [place] [address] March, [facility] [address] [id number] [address] [place] [address], [place] [address] March, [facility] [address] [id number] [address] [place] [address], [place] [address] March, [facility] [address] [id number] [address] [place] [address], [place] [address] Feb, [facility] [address] [id number] [address] [place] [address], [place] [address] Feb, [facility] [address] [place] [id number] Feb, [facility] [address] [id number] [address] [place] [address], [place] [address] Feb, [facility] [address] [id number] [address] [place] [address], [place] [address] Feb, [facility] [address] [id number] [address] [place] [address], [place] [address] Feb, [facility] [address] [id number] [address] [place] [address], [place] [address] Jan, [facility] [address] [id number] [address] [place] [address], [place] [address] Jan, [facility] [address] [id number] [address] [place] [address], [place] [address] Jan, [facility] [address] [id number] [address] [place] [address], [place] [address] Jan, [facility] [address] [id number] [address] [place] [address], [place] [address] Jan, [facility] [address] [id number] [address] [place] [address], [place] [address] Jan, [facility] [address] [id number] [address] [place] [address], [place] [address] Jan, [facility] [address] [id number] [address] [place] [address], [place] [address] Jan, [facility] [address] [id number] [address] [place] [address], [place] [address] Jan, [facility] [address] [id number] [facility] [address] Jan, [facility] [address] [id number] [facility] [place] [address] Jan, [facility] [address] [id number] [facility] [address] 17 Jan, 2014 [facility] [address] [id number] [address] [place] [address], [place] [address] Jan, [facility] [address] [id number] [facility] [place] [address] Jan, [facility] [address] [id number] [address] [place] [address], [place] [address] Jan, [facility] [address] [id number] [address] [place] [address], [place] [address] Jan, [facility] [address] [id number] [address] [place] [address], [place] [address] Jan, [facility] [address] [id number] [address] [place] [address], [place] [address] Jan, [facility] [address] [id number] [address] [place] [address], [place] [address] Dec, [facility] [address] [id number] [address] [place] [address], [place] [address] Dec, [facility] [address] [id number] [address] [place] [address], [place] [address] Dec, [facility] [address] [id number] [address] [place] [address], [place] [address] Dec, [facility] [address] [id number] [address] [place] [address], [place] [address] 14 Dec, 2013 [facility] [address] [id number] [address] [place] [address], [place] [address] 07 Dec, 2013 [facility] [address] [id number] [address] [place] [address], [place] [address] 07 Dec, 2013 [facility] [address] [id number] [address] [place] [address], [place] [address] Dec, [facility] [address] [id number] [address] [place] [address], [place] [address] Dec, [facility] [address] [id number] [address] [place] [address], [place] [address] Dec, [facility] [address] [id number] [address] [place] [address], [place] [address] Dec, [facility] [address] [id number] [address] [place] [address], [place] [address] Dec, [facility] [address] [id number] [address] [place] [address], [place] [address] Nov, [facility] [address] [id number] [address] [place] [address], [place] [address] Nov, [facility] [address] [id number] [address] [place] [address], [place] [address] Nov, [facility] [address] [id number] [address] [place] [address], [place] [address] Nov, [facility] [address] [id number] [address] [place] [address], [place] [address] Nov, [facility] [address] [id number] [address] [place] [address], [place] [address] Nov, [facility] [address] [id number] [address] [place] [address], [place] [address] Nov, [facility] [address] [id number] [address] [place] [address], [place] [address] Oct, [facility] [address] [id number] [address] [place] [address], [place] [address] Oct, [facility] [address] [id number] [address] [place] [address], [place] [address] Sep, [facility] [address] [id number] [address] [place] [address], [place] [address] Sep, [facility] [address] [id number] [address] [place] [address], [place] [address] Sep, [facility] [address] [id number] [address] [place] [address], [place] [address] Sep, [facility] [address] [id number] [address] [place] [address], [place] [address] Aug, [facility] [address] [id number] [address] [place] [address], [place] [address] Aug, [facility] [address] [id number] [address] [place] [address], [place] [address] Aug, [facility] [address] [id number] [address] [place] [address], [place] [address] Jul, [facility] [address] [id number] [address] [place] [address], [place] [address] Jul, [facility] [address] [id number] [address] [place] [address], [place] [address] Jun, [facility] [address] [id number] [address] [place] [address], [place] [address] Jun, [facility] [address] [id number] [address] [place] [address], [place] [address] Jun, [facility] [address] [id number] [address] [place] [address] May, [facility] [address] [id number] [address] [place] [address], [place] [address] May, [facility] [address] [id number] [address] [place] [address], [place] [address] May, [facility] [address] [id number] [address] [place] [address], [place] [address] Apr, [facility] [address] [id number] [address] [place] [address], [place] [address] 18 Apr, 2013 [facility] [address] [id number] [address] [place] [address], [place] [address] March, [facility] [address] [id number] [address] [place] [address], [place] [address] Feb, [facility] [address] [id number] [address] [place] [address], [place] [address] Jan, [facility] [address] [id number] [address] [place] [address], [place] [address] Jan, [facility] [address] [id number] [address] [place] [address], [place] [address] 07 Dec, 2012 [facility] [address] [id number] [address] [place] [address], [place] [address] Nov, [facility] [address] [id number] [address] [place] [address], [place] [address] Oct, [facility] [address] [id number] [address] [place] [address], [place] [address] Oct, [facility] [address] [id number] [address] [place] [address], [place] [address] 30 Sep, [address] [facility] [address] [id number] [address] [place] [address], [place] [address] 29 Sep, 2012 [facility] [address] [id number] [address] [place] [address], [place] [address] 29 Sep, [address] [facility] [address] [id number] [address] [place] [address], [place] [address] 28 Sep, 2012 [facility] [address] [id number] [address] [place] [address], [place] [address] 13 Sep, [address] [facility] [address] [id number] [address] [place] [address], [place] [address] 13 Sep, 2012 [facility] [address] [id number] [address] [place] [address], [place] [address] Sep, [facility] [address] [id number] [address] [place] [address], [place] [address] Sep, [facility] [address] [id number] [address] [place] [address], [place] [address] Jul, [facility] [address] [id number] [address] [place] [address], [place] [address] Jun, [facility] [address] [id number] [address] [place] [address], [place] [address] Jun, [facility] [address] [id number] [address] [place] [address], [place] [address] Jun, [facility] [address] [id number] [address] [place] [address], [place] [address] Jun, [facility] [address] [id number] [address] [place] [address], [place] [address] May, [facility] [address] [id number] [address] [place] [address], [place] [address] Apr, [facility] [address] [id number] [address] [place] [address], [place] [address] Jan, [facility] [address] [id number] [address] [place] [address], [place] [address] Dec, [facility] [address] [id number] [address] [place] [address], [place] [address] Dec, [facility] [address] [id number] [address] [place] [address], [place] [address] Nov, [facility] [address] [id number] [address] [place] [address], [place] [address] Oct, [facility] [address] [id number] [address] [place] [address], [place] [address] Oct, [facility] [address] [id number] [address] [place] [address], [place] [address] Aug, [facility] [address] [id number] [address] [place] [address], [place] [address] 18 Aug, 2011 [facility] [address] [id number] [address] [place] [address], [place] [address] 18 Aug, 2011 [facility] [address] [id number] [address] [place] [address], [place] [address] 14 Aug, 2011 [facility] [address] [id number] [address] [place] [address], [place] [address] 11 Aug, 2011 [facility] [address] [id number] [address] [place] [address], [place] [address] 11 Aug, 2011 [facility] [address] [id number] [address] [place] [address], [place] [address] 19 May, 2011 [facility] [address] [id number] [address] [place] [address], [place] [address] Apr, [facility] [address] [id number] [address] [place] [address], [place] [address] 18 Feb, 2011 [facility] [address] [id number] [address] [place] [address], [place] [address] Oct, [facility] [address] [id number] [address] [place] [address], [place] [address] Oct, [facility] [address] [id number] [address] [place] [address], [place] [address] Oct, [facility] [address] [id number] [address] [place] [address], [place] [address] 09 Sep, 2010 [facility] [address] [id number] [address] [place] [address], [place] [address] 26 Aug, 2010 [facility] [address] [id number] [address] [place] [address], [place] [id number] 16 Jul, 2010 [facility] [address] [id number] [address] [place] [address], [place] [id number] 13 May, 2010 [facility] [address] [id number] [address] [place] [address], [place] [phone] Dec, [facility] [address] [id number] [address] [place] [phone] Nov, [facility] [address] [id number] [address] [place] [id number] Oct, [facility] [address] [id number] [address] [place] [phone] Sep, [facility] [address] [facility] [id number] [address] [place] [id number] Sep, [facility] [address] [facility] [id number] [address] [place] [phone] Jul, [facility] [address] [facility] [id number] [address] [place] [phone] Jun, [facility] [address] [facility] [id number] [address] [place] [id number] May, IMMUNIZATIONS No Known Immunizations SOCIAL HISTORY Never Assessed REASON FOR VISIT EMR-[facility] PLAN OF CARE VITAL SIGNS MEDICATIONS No [...]
--- OUTSIDE RECORDS SUMMARY | 2020-06-11 21:01 | XMS REPORT ---
Author Author Jd Fagan r Organization [facility] Address Unknown Phone Unavailable Care Team Providers Care Psych Nurse Name Role Phone Migration, Doctor Unavailable Unavailable PROBLEMS Type Condition ICD9-CM Code [id number] Code Onset Dates Condition S tatus SNOMED Code Problem Raynauds disease I73.00 Active 195 226303 Problem Venous insufficiency I87.2 Active 25480583 Problem Neuropathy G62.9 Active 614805666 Problem Hypokalemia E87.6 Active 33591278 Problem Other chronic pain G89.29 Active 8 3378465 Problem Low back pain M54.5 Active 692261 009 Problem Congenital deafness H90.5 Active 87623950 Problem Dysthymia F34.1 Active [id number] ALLERGIES No Information ENCOUNTERS Encounter Location Date Diagnosis [facility] [address] [id number] [address] [place] [address] Jan, Abscess of left knee L02.416 [facility] [address] [id number] [address] [place] [address] Jan, Prediabetes R73.03 ; Raynaud s disease I73.00 and Venous insufficiency I87.2 [facility] [address] [id number] [address] [place] [address] Oct, Neuropathy G62.9 ; Low back pain M54.5 and URI (upper respiratory infection) J06.9 [facility] [address] [id number] [address] [place] [address] Jul, Raynauds disease I73.00 and Hypokalemia E87.6 [facility] [address] [id number] [address] [place] [address] May, Medicare annual wellness vis it, initial Z00.00 ; Dysthymia F34.1 ; Raynauds disease I73.00 ; Venous insufficiency I87.2 ; Congenital deafness H90.5 and Neuropathy G62.9 [place] [id number] [address] [place] [address] Apr, [place] [id number] [place] [address] Apr, Prediabetes R73.03 ; Raynaud s disease I73.00 ; Venous insufficiency I87.2 ; Neuropathy G62.9 and Dysthymia F34.1 [place] [address] [id number] [address] [place] [address] March, [place] [address] [address] Sep, Hyperglycemia R73.9 [place] [id number] [place] [address] Sep, Hyperglycemia R73.9 [place] [address] [address] Sep, Raynauds disease I73.00 ; Ve nous insufficiency I87.2 and Encounter for immunization Z23 [place] [id number] [place] [address] Jun, [place] [id number] [place] [address] May, [place] [address] [address] May, Other chronic pain G89.29 [place] [address] [id number] [address] [place] [address] May, Raynauds disease I73.00 ; Ve nous insufficiency I87.2 and Low back pain M54.5 [place] [address] [id number] [address] [place] [address] 13 Dec, 2016 Raynauds disease I73.00 ; Ve nous insufficiency I87.2 ; Low back pain M54.5 and Other chronic pain G89.29 [facility] [address] [facility] [id number] [address] [place] [address] 18 Nov, 2016 [facility] [address] [facility] [id number] [address] [place] [address] Nov, Muscle spasm M62.838 [facility] [address] [id number] [address] [place] [address] 16 Nov, 2016 [facility] [address] [id number] [address] [place] [address] Oct, Folliculitis L73.9 and Venou s insufficiency I87.2 [facility] [address] [id number] [address] [place] [address] Sep, Dermatitis L30.9 and Raynaud s disease I73.00 [facility] [address] [id number] [address] [place] [address] Sep, Rash and nonspecific skin er uption R21 [facility] [address] [facility] [id number] [address] [place] [address] Aug, Skin infection L08.9 [facility] [address] [id number] [address] [place] [address] May, Infected smith L08.9 [facility] [address] [id number] [address] [place] [address] May, Skin infection L08.9 [facility] [address] [id number] [address] [place] [address] Dec, [facility] [address] [facility] [id number] [address] [place] [address] Nov, [facility] [address] [id number] [address] [place] [address] Nov, [facility] [id number] [address] [place] [address] Nov, Raynauds disease I73.00 [facility] [address] [facility] [id number] [address] [place] [address] Nov, Raynauds disease I73.00 ; Le g cramps R25.2 ; Venous insufficiency I87.2 and Routine adult health maintenance Z00.00 [facility] [address] [facility] [id number] [address] [place] [address] Jul, Infected sebaceous cyst 706. 2 [facility] [address] [id number] [address] [place] [address] Jun, [facility] [address] [facility] [id number] [address] [place] [address] Jun, [facility] [address] [facility] [id number] [address] [place] [address] Jun, Venous insufficiency 459.81 and Raynauds disease 443.0 [facility] [address] [facility] [id number] [address] [place] [address] Feb, [facility] [address] [facility] [id number] [address] [place] [address] Feb, [facility] [address] [facility] [id number] [address] [place] [address] Jan, [facility] [address] [facility] [id number] [address] [place] [address] Jan, [facility] [address] [facility] [id number] [address] [place] [address] Dec, [facility] [address] [facility] [id number] [address] [place] [address] Dec, [facility] [address] [facility] [id number] [address] [place] [address] Dec, [facility] [address] [facility] [id number] [address] [place] [address] Dec, [facility] [address] [facility] [id number] [address] [place] [address] Nov, [facility] [address] [id number] [address] [place] [address], [place] [address] Nov, [facility] [address] [id number] [address] [place] [address], [place] [address] Oct, [facility] [address] [id number] [address] [place] [address], [place] [address] Oct, [facility] [address] [id number] [address] [place] [address], [place] [address] Aug, [facility] [address] [id number] [address] [place] [address], [place] [address] Aug, [facility] [address] [id number] [address] [place] [address], [place] [address] Aug, [facility] [address] [id number] [address] [place] [address], [place] [address] Jul, [facility] [address] [id number] [address] [place] [address], [place] [address] Jul, [facility] [address] [id number] [address] [place] [address], [place] [address] Jul, [facility] [address] [id number] [address] [place] [address], [place] [address] Jul, [facility] [address] [id number] [address] [place] [address], [place] [address] Jun, [facility] [address] [id number] [address] [place] [address], [place] [address] Jun, [facility] [address] [id number] [address] [place] [address], [place] [address] Jun, [facility] [address] [id number] [address] [place] [address], [place] [address] Jun, [facility] [address] [id number] [address] [place] [address], [place] [address] May, [facility] [address] [id number] [facility] [place] [address] May, [facility] [address] [id number] [facility] [place] [address] May, [facility] [address] [id number] [facility] [place] [address] 15 May, 2014 [facility] [address] [id number] [address] [place] [address], [place] [address] May, [facility] [address] [id number] [address] [place] [address], [place] [address] May, [facility] [address] [id number] [address] [place] [address], [place] [address] May, [facility] [address] [id number] [address] [place] [address], [place] [address] Apr, [facility] [address] [id number] [address] [place] [address], [place] [address] Apr, [facility] [address] [id number] [address] [place] [address], [place] [address] Apr, [facility] [address] [id number] [address] [place] [address], [place] [address] Apr, [facility] [address] [id number] [address] [place] [address], [place] [address] March, [facility] [address] [id number] [address] [place] [address], [place] [address] March, [facility] [address] [id number] [address] [place] [address], [place] [address] March, [facility] [address] [id number] [address] [place] [address], [place] [address] March, [facility] [address] [id number] [address] [place] [address], [place] [address] March, [facility] [address] [id number] [address] [place] [address], [place] [address] March, [facility] [address] [id number] [address] [place] [address], [place] [address] March, [facility] [address] [id number] [address] [place] [address], [place] [address] Feb, [facility] [address] [id number] [address] [place] [address], [place] [address] Feb, [facility] [place] [id number] Feb, [facility] [address] [id number] [address] [place] [address], [place] [address] Feb, [facility] [address] [id number] [address] [place] [address], [place] [address] Feb, [facility] [address] [id number] [address] [place] [address], [place] [address] Feb, [facility] [address] [id number] [address] [place] [address], [place] [address] Jan, [facility] [address] [id number] [address] [place] [address], [place] [address] Jan, [facility] [address] [id number] [address] [place] [address], [place] [address] Jan, [facility] [address] [id number] [address] [place] [address], [place] [address] Jan, [facility] [address] [id number] [address] [place] [address], [place] [address] Jan, [facility] [address] [id number] [address] [place] [address], [place] [address] Jan, [facility] [address] [id number] [address] [place] [address], [place] [address] Jan, [facility] [address] [id number] [address] [place] [address], [place] [address] Jan, [facility] [address] [id number] [address] [place] [address], [place] [address] Jan, [facility] [address] [id number] [facility] [place] [address] Jan, [facility] [address] [id number] [facility] [place] [address] Jan, [facility] [address] [id number] [facility] [place] [address] 17 Jan, 2014 [facility] [address] [id number] [address] [place] [address], [place] [address] Jan, [facility] [address] [id number] [facility] [place] [address] Jan, [facility] [address] [id number] [address] [place] [address], [place] [address] Jan, [facility] [address] [id number] [address] [place] [address], [place] [address] Jan, [facility] [address] [id number] [address] [place] [address], [place] [address] Jan, [facility] [address] [id number] [address] [place] [address], [place] [address] Jan, [facility] [address] [id number] [address] [place] [address], [place] [address] Dec, [facility] [address] [id number] [address] [place] [address], [place] [address] Dec, [facility] [address] [id number] [address] [place] [address], [place] [address] Dec, [facility] [address] [id number] [address] [place] [address], [place] [address] Dec, [facility] [address] [id number] [address] [place] [address], [place] [address] 14 Dec, 2013 [facility] [address] [id number] [address] [place] [address], [place] [address] 07 Dec, 2013 [facility] [address] [id number] [address] [place] [address], [place] [address] 07 Dec, 2013 [facility] [address] [id number] [address] [place] [address], [place] [address] Dec, [facility] [address] [id number] [address] [place] [address], [place] [address] Dec, [facility] [address] [id number] [address] [place] [address], [place] [address] Dec, [facility] [address] [id number] [address] [place] [address], [place] [address] Dec, [facility] [address] [id number] [address] [place] [address], [place] [address] Dec, [facility] [address] [id number] [address] [place] [address], [place] [address] Nov, [facility] [address] [id number] [address] [place] [address], [place] [address] Nov, [facility] [address] [id number] [address] [place] [address], [place] [address] Nov, [facility] [address] [id number] [address] [place] [address], [place] [address] Nov, [facility] [address] [id number] [address] [place] [address], [place] [address] Nov, [facility] [address] [id number] [address] [place] [address], [place] [address] Nov, [facility] [address] [id number] [address] [place] [address], [place] [address] Nov, [facility] [address] [id number] [address] [place] [address], [place] [address] Oct, [facility] [address] [id number] [address] [place] [address], [place] [address] Oct, [facility] [address] [id number] [address] [place] [address], [place] [address] Sep, [facility] [address] [id number] [address] [place] [address], [place] [address] Sep, [facility] [address] [id number] [address] [place] [address], [place] [address] Sep, [facility] [address] [id number] [address] [place] [address], [place] [address] Sep, [facility] [address] [id number] [address] [place] [address], [place] [address] Aug, [facility] [address] [id number] [address] [place] [address], [place] [address] Aug, [facility] [address] [id number] [address] [place] [address], [place] [address] Aug, [facility] [address] [id number] [address] [place] [address], [place] [address] Jul, [facility] [address] [id number] [address] [place] [address], [place] [address] Jul, [facility] [address] [id number] [address] [place] [address], [place] [address] Jun, [facility] [address] [id number] [address] [place] [address], [place] [address] Jun, [facility] [address] [id number] [address] [place] [address], [place] [address] Jun, [facility] [address] [id number] [address] [place] [address] May, [facility] [address] [id number] [address] [place] [address], [place] [address] May, [facility] [address] [id number] [address] [place] [address], [place] [address] May, [facility] [address] [id number] [address] [place] [address], [place] [address] Apr, [facility] [address] [id number] [address] [place] [address], [place] [address] 18 Apr, 2013 [facility] [address] [id number] [address] [place] [address], [place] [address] March, [facility] [address] [id number] [address] [place] [address], [place] [address] Feb, [facility] [address] [id number] [address] [place] [address], [place] [address] Jan, [facility] [address] [id number] [address] [place] [address], [place] [address] Jan, [facility] [address] [id number] [address] [place] [address], [place] [address] 07 Dec, 2012 [facility] [address] [id number] [address] [place] [address], [place] [address] Nov, [facility] [address] [id number] [address] [place] [address], [place] [address] Oct, [facility] [address] [id number] [address] [place] [address], [place] [address] Oct, [facility] [address] [id number] [address] [place] [address], [place] [address] 30 Sep, 2012 [facility] [address] [id number] [address] [place] [address], [place] [address] 29 Sep, 2012 [facility] [address] [id number] [address] [place] [address], [place] [address] 29 Sep, 2012 [facility] [address] [id number] [address] [place] [address], [place] [address] 28 Sep, 2012 [facility] [address] [id number] [address] [place] [address], [place] [address] 13 Sep, 2012 [facility] [address] [id number] [address] [place] [address], [place] [address] 13 Sep, 2012 [facility] [address] [id number] [address] [place] [address], [place] [address] Sep, [facility] [address] [id number] [address] [place] [address], [place] [address] Sep, [facility] [address] [id number] [address] [place] [address], [place] [address] Jul, [facility] [address] [id number] [address] [place] [address], [place] [address] Jun, [facility] [address] [id number] [address] [place] [address], [place] [address] Jun, [facility] [address] [id number] [address] [place] [address], [place] [address] Jun, [facility] [address] [id number] [address] [place] [address], [place] [address] Jun, [facility] [address] [id number] [address] [place] [address], [place] [address] May, [facility] [address] [id number] [address] [place] [address], [place] [address] Apr, [facility] [address] [id number] [address] [place] [address], [place] [address] Jan, [facility] [address] [id number] [address] [place] [address], [place] [address] Dec, [facility] [address] [id number] [address] [place] [address], [place] [address] Dec, [facility] [address] [id number] [address] [place] [address], [place] [address] Nov, [facility] [address] [id number] [address] [place] [address], [place] [address] Oct, [facility] [address] [id number] [address] [place] [address], [place] [address] Oct, [facility] [address] [id number] [address] [place] [address], [place] [address] Aug, [facility] [address] [id number] [address] [place] [address], [place] [address] 18 Aug, 2011 [facility] [address] [id number] [address] [place] [address], [place] [address] 18 Aug, 2011 [facility] [address] [id number] [address] [place] [address], [place] [address] 14 Aug, 2011 [facility] [address] [id number] [address] [place] [address], [place] [address] 11 Aug, 2011 [facility] [address] [id number] [address] [place] [address], [place] [address] 11 Aug, 2011 [facility] [address] [id number] [address] [place] [address], [place] [address] 19 May, 2011 [facility] [address] [id number] [address] [place] [address], [place] [address] Apr, [facility] [address] [id number] [address] [place] [address], [place] [address] 18 Feb, 2011 [facility] [address] [id number] [address] [place] [address], [place] [address] Oct, [facility] [address] [id number] [address] [place] [address], [place] [address] Oct, [facility] [address] [id number] [address] [place] [address], [place] [address] Oct, [facility] [address] [id number] [address] [place] [address], [place] [address] 09 Sep, 2010 [facility] [address] [id number] [address] [place] [address], [place] [address] 26 Aug, 2010 [facility] [address] [id number] [address] [place] [address], [place] [address] 16 Jul, 2010 [facility] [address] [id number] [address] [place] [address], [place] [address] 13 May, 2010 [facility] [address] [id number] [address] [place] [address], [place] [address] Dec, [facility] [address] [id number] [address] [place] [phone] Nov, [facility] [address] [id number] [address] [place] [phone] Oct, [facility] [address] [id number] [address] [place] [phone] Sep, [facility] [address] [id number] [address] [place] [id number] Sep, [facility] [address] [id number] [address] [place] [address] [id number] Jul, [facility] [address] [id number] [address] [place] [id number] Jun, [facility] [address] [id number] [address] [place] [phone] May, IMMUNIZATIONS No Known Immunizations SOCIAL HISTORY Never Assessed REASON FOR VISIT [facility] [place] [facility] VITAL SIGNS MEDICATIONS Medication Instructions Dosage Frequency Start Date End Date Duration S tatus Zithromax Z-Sal 250 mg 2 tablet by Oral route 1 time per day for 5 days on day 1 then take 1 tab daily on days 2-5 Jul, Active Sodium Sulamyd 10 % by Ophthalmic route 4 times per da y for 7 day(s) Jul, Active Sulfacetamide Sodium 10 % 2 drop by Opht halmic route 4 times per day for 7 day(s) Jul, Active gentamicin 0.3 % (3 mg/gram) 0.5 in by O phthalmic route 3 times per day for 7 day(s) Sep, Active Keflex 500 mg 1 capsule by Oral route 4 times per day for 6 days Jun, Active Augmentin 875-125 mg 1 tablet by Oral route 2 times pe r day for 4 day(s) Nov, Active Mobic 15 mg take 1 Tablet by Oral route 1 time per day pc Dec, Active Lexapro 10 mg take 1 tablet by Ora l route 1 time per day (with the 20 mg for total 30 mg dose) March, Active Lomotil 0.025 mg-2.5 mg 2 tablet by Oral route 3 times per day PRN Jan, Active Bactrim DS 800-160 mg 1 tablet by Oral route 2 times p er day for 7 day(s) Oct, Active Antabuse 500 mg take 1 tablet (500 mg) by oral route o nce daily March, Active PredniSONE 20 mg 2 tablet by Oral route 1 time per day for 5 day(s) Sep, Active Lyrica 100 mg 1 capsule by Oral route 1 time per day Nov, Active Levitra 20 mg 1 tablet by Oral route 1 time per day PRN Jan, Active Flexeril 10 mg 1 tablet by Oral route 1 time per day PRN hs Oct, Active Phenergan 25 mg 1 tablet by Oral route every 4 hours P RN nausea Jul, Active RESULTS No Results PROCEDURES No Known procedures [...]
--- OUTSIDE RECORDS SUMMARY | 2020-06-11 21:01 | XMS REPORT ---
Author Author Jd Fagan r Organization [facility] Address Unknown Phone Unavailable Care Team Providers Care Readiness Paraprofessional Name Role Phone Migration, Doctor Unavailable Unavailable PROBLEMS Type Condition ICD9-CM Code RKN63-XL Code Onset Dates Condition S tatus SNOMED Code Problem Raynauds disease I73.00 Active 195 160899 Problem Venous insufficiency I87.2 Active 30938643 Problem Neuropathy G62.9 Active 417380500 Problem Hypokalemia E87.6 Active 02212713 Problem Other chronic pain G89.29 Active 8 6072147 Problem Low back pain M54.5 Active 008870 009 Problem Congenital deafness H90.5 Active 08928501 Problem Dysthymia F34.1 Active [id number] ALLERGIES No Information ENCOUNTERS Encounter Location Date Diagnosis [facility] [address] [id number] [address] [place] [id number] Jan, Abscess of left knee L02.416 [facility] [place] [address] [id number] [address] [place] [address] Jan, Prediabetes R73.03 ; Raynaud s disease I73.00 and Venous insufficiency I87.2 [facility] [place] [address] [id number] [address] [place] [address] Oct, Neuropathy G62.9 ; Low back pain M54.5 and URI (upper respiratory infection) J06.9 [facility] [place] [id number] [address] [place] [address] Jul, Raynauds disease I73.00 and Hypokalemia E87.6 [facility] [place] [address] [id number] [address] [place] [address] May, Medicare annual wellness vis it, initial Z00.00 ; Dysthymia F34.1 ; Raynauds disease I73.00 ; Venous insufficiency I87.2 ; Congenital deafness H90.5 and Neuropathy G62.9 [place] [id number] [address] [place] [address] Apr, [place] [id number] [place] [address] Apr, Prediabetes R73.03 ; Raynaud s disease I73.00 ; Venous insufficiency I87.2 ; Neuropathy G62.9 and Dysthymia F34.1 [place] [id number] [place] [address] March, [place] [address] [address] Sep, Hyperglycemia R73.9 [place] [id number] [place] [address] Sep, Hyperglycemia R73.9 [place] [address] [address] Sep, Raynauds disease I73.00 ; Ve nous insufficiency I87.2 and Encounter for immunization Z23 [place] [id number] [place] [address] Jun, [place] [id number] [place] [address] May, [place] [address] [address] May, Other chronic pain G89.29 [place] [id number] [place] [address] May, Raynauds disease I73.00 ; Ve nous insufficiency I87.2 and Low back pain M54.5 [place] [id number] [place] [address] 13 Dec, 2016 Raynauds disease I73.00 ; Ve nous insufficiency I87.2 ; Low back pain M54.5 and Other chronic pain G89.29 [facility] [place] [address] [facility] [id number] [address] [place] [address] 18 Nov, 2016 [facility] [place] [address] [facility] [id number] [address] [place] [address] Nov, Muscle spasm M62.838 [facility] [id number] [address] [place] [address] 16 Nov, 2016 [facility] [place] [id number] [address] [place] [address] Oct, Folliculitis L73.9 and Venou s insufficiency I87.2 [facility] [place] [id number] [address] [place] [address] Sep, Dermatitis L30.9 and Raynaud s disease I73.00 [facility] [id number] [address] [place] [address] Sep, Rash and nonspecific skin er uption R21 [facility] [place] [address] [facility] [id number] [address] [place] [address] Aug, Skin infection L08.9 [facility] [place] [id number] [place] [address] May, Infected smith L08.9 [facility] [place] [id number] [address] [place] [address] May, Skin infection L08.9 [facility] [place] [id number] [address] [place] [address] Dec, [facility] [place] [address] [facility] [id number] [address] [place] [address] Nov, [facility] [place] [id number] [address] [place] [address] Nov, [facility] [place] [id number] [address] [place] [address] Nov, Raynauds disease I73.00 [facility] [place] [address] [facility] [id number] [address] [place] [address] Nov, Raynauds disease I73.00 ; Le g cramps R25.2 ; Venous insufficiency I87.2 and Routine adult health maintenance Z00.00 [facility] [place] [address] [facility] [id number] [address] [place] [address] Jul, Infected sebaceous cyst 706. 2 [facility] [place] [address] [id number] [address] [place] [address] Jun, [facility] [place] [address] [facility] [id number] [address] [place] [id number] Jun, [facility] [place] [address] [facility] [id number] [address] [place] [address] Jun, Venous insufficiency 459.81 and Raynauds disease 443.0 [facility] [place] [address] [facility] [id number] [address] [place] [id number] Feb, [facility] [place] [address] [facility] [id number] [address] [place] [address] Feb, [facility] [place] [address] [facility] [id number] [address] [place] [address] Jan, [facility] [place] [address] [facility] [id number] [address] [place] [address] Jan, [facility] [place] [address] [facility] [id number] [address] [place] [address] Dec, [facility] [place] [address] [facility] [id number] [address] [place] [address] Dec, [facility] [place] [address] [facility] [id number] [address] [place] [phone] Dec, [facility] [place] [address] [facility] [id number] [address] [place] [phone] Dec, [facility] [place] [address] [facility] [id number] [address] [place] [address] Nov, [facility] [address] [id number] [address] [place] [address], [place] [address] Nov, [facility] [address] [id number] [address] [place] [address], [place] [address] Oct, [facility] [address] [id number] [address] [place] [address], [place] [address] Oct, [facility] [address] [id number] [address] [place] [address], [place] [address] Aug, [facility] [address] [id number] [address] [place] [address], [place] [address] Aug, [facility] [address] [id number] [address] [place] [address], [place] [address] Aug, [facility] [address] [id number] [address] [place] [address], [place] [address] Jul, [facility] [address] [id number] [address] [place] [address], [place] [address] Jul, [facility] [address] [id number] [address] [place] [address], [place] [address] Jul, [facility] [address] [id number] [address] [place] [address], [place] [address] Jul, [facility] [address] [id number] [address] [place] [address], [place] [address] Jun, [facility] [address] [id number] [address] [place] [address], [place] [address] Jun, [facility] [address] [id number] [address] [place] [address], [place] [address] Jun, [facility] [address] [id number] [address] [place] [address], [place] [address] Jun, [facility] [address] [id number] [address] [place] [address], [place] [address] May, [facility] [address] [id number] [facility] [place] [address] May, [facility] [address] [id number] [facility] [place] [address] May, [facility] [address] [id number] [facility] [place] [address] 15 May, 2014 [facility] [address] [id number] [address] [place] [address], [place] [address] May, [facility] [address] [id number] [address] [place] [address], [place] [address] May, [facility] [address] [id number] [address] [place] [address], [place] [address] May, [facility] [address] [id number] [address] [place] [address], [place] [address] Apr, [facility] [address] [id number] [address] [place] [address], [place] [address] Apr, [facility] [address] [id number] [address] [place] [address], [place] [address] Apr, [facility] [address] [id number] [address] [place] [address], [place] [address] Apr, [facility] [address] [id number] [address] [place] [address], [place] [address] March, [facility] [address] [id number] [address] [place] [address], [place] [address] March, [facility] [address] [id number] [address] [place] [address], [place] [address] March, [facility] [address] [id number] [address] [place] [address], [place] [address] March, [facility] [address] [id number] [address] [place] [address], [place] [address] March, [facility] [address] [id number] [address] [place] [address], [place] [address] March, [facility] [address] [id number] [address] [place] [address], [place] [address] March, [facility] [address] [id number] [address] [place] [address], [place] [address] Feb, [facility] [address] [id number] [address] [place] [address], [place] [address] Feb, [facility] [address] [place] [id number] Feb, [facility] [address] [id number] [address] [place] [address], [place] [address] Feb, [facility] [address] [id number] [address] [place] [address], [place] [address] Feb, [facility] [address] [id number] [address] [place] [address], [place] [address] Feb, [facility] [address] [id number] [address] [place] [address], [place] [address] Jan, [facility] [address] [id number] [address] [place] [address], [place] [address] Jan, [facility] [address] [id number] [address] [place] [address], [place] [address] Jan, [facility] [address] [id number] [address] [place] [address], [place] [address] Jan, [facility] [address] [id number] [address] [place] [address], [place] [address] Jan, [facility] [address] [id number] [address] [place] [address], [place] [address] Jan, [facility] [address] [id number] [address] [place] [address], [place] [address] Jan, [facility] [address] [id number] [address] [place] [address], [place] [address] Jan, [facility] [address] [id number] [address] [place] [address], [place] [address] Jan, [facility] [address] [id number] [facility] [place] [address] Jan, [facility] [address] [id number] [facility] [place] [address] Jan, [facility] [address] [id number] [facility] [place] [address] 17 Jan, 2014 [facility] [address] [id number] [address] [place] [address], [place] [address] Jan, [facility] [address] [id number] [facility] [place] [address] Jan, [facility] [address] [id number] [address] [place] [address], [place] [address] Jan, [facility] [address] [id number] [address] [place] [address], [place] [address] Jan, [facility] [address] [id number] [address] [place] [address], [place] [address] Jan, [facility] [address] [id number] [address] [place] [address], [place] [address] Jan, [facility] [address] [id number] [address] [place] [address], [place] [address] Dec, [facility] [address] [id number] [address] [place] [address], [place] [address] Dec, [facility] [address] [id number] [address] [place] [address], [place] [address] Dec, [facility] [address] [id number] [address] [place] [address], [place] [address] Dec, [facility] [address] [id number] [address] [place] [address], [place] [address] 14 Dec, 2013 [facility] [address] [id number] [address] [place] [address], [place] [address] 07 Dec, 2013 [facility] [address] [id number] [address] [place] [address], [place] [address] 07 Dec, 2013 [facility] [address] [id number] [address] [place] [address], [place] [address] Dec, [facility] [address] [id number] [address] [place] [address], [place] [address] Dec, [facility] [address] [id number] [address] [place] [address], [place] [address] Dec, [facility] [address] [id number] [address] [place] [address], [place] [address] Dec, [facility] [address] [id number] [address] [place] [address], [place] [address] Dec, [facility] [address] [id number] [address] [place] [address], [place] [address] Nov, [facility] [address] [id number] [address] [place] [address], [place] [address] Nov, [facility] [address] [id number] [address] [place] [address], [place] [address] Nov, [facility] [address] [id number] [address] [place] [address], [place] [address] Nov, [facility] [address] [id number] [address] [place] [address], [place] [address] Nov, [facility] [address] [id number] [address] [place] [address], [place] [address] Nov, [facility] [address] [id number] [address] [place] [address], [place] [address] Nov, [facility] [address] [id number] [address] [place] [address], [place] [address] Oct, [facility] [address] [id number] [address] [place] [address], [place] [address] Oct, [facility] [address] [id number] [address] [place] [address], [place] [address] Sep, [facility] [address] [id number] [address] [place] [address], [place] [address] Sep, [facility] [address] [id number] [address] [place] [address], [place] [address] Sep, [facility] [address] [id number] [address] [place] [address], [place] [address] Sep, [facility] [address] [id number] [address] [place] [address], [place] [address] Aug, [facility] [address] [id number] [address] [place] [address], [place] [address] Aug, [facility] [address] [id number] [address] [place] [address], [place] [address] Aug, [facility] [address] [id number] [address] [place] [address], [place] [address] Jul, [facility] [address] [id number] [address] [place] [address], [place] [address] Jul, [facility] [address] [id number] [address] [place] [address], [place] [address] Jun, [facility] [address] [id number] [address] [place] [address], [place] [address] Jun, [facility] [address] [id number] [address] [place] [address], [place] [address] Jun, [facility] [address] [id number] [address] [place] [address] May, [facility] [address] [id number] [address] [place] [address], [place] [address] May, [facility] [address] [id number] [address] [place] [address], [place] [address] May, [facility] [address] [id number] [address] [place] [address], [place] [address] Apr, [facility] [address] [id number] [address] [place] [address], [place] [address] 18 Apr, 2013 [facility] [address] [id number] [address] [place] [address], [place] [address] March, [facility] [address] [id number] [address] [place] [address], [place] [address] Feb, [facility] [address] [id number] [address] [place] [address], [place] [address] Jan, [facility] [address] [id number] [address] [place] [address], [place] [address] Jan, [facility] [address] [id number] [address] [place] [address], [place] [address] 07 Dec, 2012 [facility] [address] [id number] [address] [place] [address], [place] [address] Nov, [facility] [address] [id number] [address] [place] [address], [place] [address] Oct, [facility] [address] [id number] [address] [place] [address], [place] [address] Oct, [facility] [address] [id number] [address] [place] [address], [place] [address] 30 Sep, 2012 [facility] [address] [id number] [address] [place] [address], [place] [address] 29 Sep, 2012 [facility] [address] [id number] [address] [place] [address], [place] [address] 29 Sep, 2012 [facility] [address] [id number] [address] [place] [address], [place] [address] 28 Sep, 2012 [facility] [address] [id number] [address] [place] [address], [place] [address] 13 Sep, 2012 [facility] [address] [id number] [address] [place] [address], [place] [address] 13 Sep, 2012 [facility] [address] [id number] [address] [place] [address], [place] [address] Sep, [facility] [address] [id number] [address] [place] [address], [place] [address] Sep, [facility] [address] [id number] [address] [place] [address], [place] [address] Jul, [facility] [address] [id number] [address] [place] [address], [place] [address] Jun, [facility] [address] [id number] [address] [place] [address], [place] [address] Jun, [facility] [address] [id number] [address] [place] [address], [place] [address] Jun, [facility] [address] [id number] [address] [place] [address], [place] [address] Jun, [facility] [address] [id number] [address] [place] [address], [place] [address] May, [facility] [address] [id number] [address] [place] [address], [place] [address] Apr, [facility] [address] [id number] [address] [place] [address], [place] [address] Jan, [facility] [address] [id number] [address] [place] [address], [place] [address] Dec, [facility] [address] [id number] [address] [place] [address], [place] [address] Dec, [facility] [address] [id number] [address] [place] [address], [place] [address] Nov, [facility] [address] [id number] [address] [place] [address], [place] [address] Oct, [facility] [address] [id number] [address] [place] [address], [place] [address] Oct, [facility] [address] [id number] [address] [place] [address], [place] [address] Aug, [facility] [address] [id number] [address] [place] [address], [place] [address] 18 Aug, 2011 [facility] [address] [id number] [address] [place] [address], [place] [address] 18 Aug, 2011 [facility] [address] [id number] [address] [place] [address], [place] [address] 14 Aug, 2011 [facility] [address] [id number] [address] [place] [address], [place] [address] 11 Aug, 2011 [facility] [address] [id number] [address] [place] [address], [place] [address] 11 Aug, 2011 [facility] [address] [id number] [address] [place] [address], [place] [address] 19 May, 2011 [facility] [address] [id number] [address] [place] [address], [place] [address] Apr, [facility] [address] [id number] [address] [place] [address], [place] [address] 18 Feb, 2011 [facility] [address] [address] [id number] [address] [place] [address], [place] [address] Oct, [facility] [address] [id number] [address] [place] [address], [place] [address] Oct, [facility] [address] [id number] [address] [place] [address], [place] [address] Oct, [facility] [address] [id number] [address] [place] [address], [place] [id number] 09 Sep, 2010 [facility] [address] [id number] [address] [place] [address], [place] [id number] 26 Aug, 2010 [facility] [address] [id number] [address] [place] [address], [place] [address] 16 Jul, 2010 [facility] [address] [id number] [address] [place] [address], [place] [address] 13 May, 2010 [facility] [address] [id number] [address] [place] [address], [place] [address] Dec, [facility] [place] [address] [id number] [address] [place] [id number] Nov, [facility] [place] [address] [id number] [address] [place] [phone] Oct, [facility] [place] [address] [id number] [address] [place] [phone] Sep, [facility] [place] [address] [facility] [id number] [address] [place] [phone] Sep, [facility] [place], [facility] [address] [facility] [id number] [address] [place] [phone] Jul, [facility] [place], [facility] [address] [facility] [id number] [address] [place] [phone] Jun, [facility] [place] [address] [facility] [id number] [address] [place] [id number] May, IMMUNIZATIONS No Known Immunizations SOCIAL HISTORY Never Assessed REASON FOR VISIT [facility] PLAN OF CARE VITAL SIGNS MEDICATIONS No [...]
--- OUTSIDE RECORDS SUMMARY | 2020-06-11 21:01 | XMS REPORT ---
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 Name Role Phone Migration, Doctor Unavailable Unavailable PROBLEMS Type Condition ICD9-CM Code [id number] Code Onset Dates Condition S tatus SNOMED Code Problem Raynauds disease I73.00 Active 195 352853 Problem Venous insufficiency I87.2 Active 27061315 Problem Neuropathy G62.9 Active 441922122 Problem Hypokalemia E87.6 Active 98724294 Problem Other chronic pain G89.29 Active 8 6713100 Problem Low back pain M54.5 Active 157770 009 Problem Congenital deafness H90.5 Active 37997572 Problem Dysthymia F34.1 Active [id number] ALLERGIES No Information ENCOUNTERS Encounter Location Date Diagnosis [facility] [address] [id number] [address] [place] [address] Jan, Abscess of left knee L02.416 [facility] [address] [id number] [address] [place] [address] Jan, Prediabetes R73.03 ; Raynaud s disease I73.00 and Venous insufficiency I87.2 [facility] [address] [id number] [address] [place] [address] Oct, Neuropathy G62.9 ; Low back pain M54.5 and URI (upper respiratory infection) J06.9 [facility] [address] [id number] [address] [place] [address] Jul, Raynauds disease I73.00 and Hypokalemia E87.6 [facility] [address] [id number] [address] [place] [address] May, Medicare annual wellness vis it, initial Z00.00 ; Dysthymia F34.1 ; Raynauds disease I73.00 ; Venous insufficiency I87.2 ; Congenital deafness H90.5 and Neuropathy G62.9 [place] [id number] [address] [place] [address] Apr, [place] [id number] [place] [address] Apr, Prediabetes R73.03 ; Raynaud s disease I73.00 ; Venous insufficiency I87.2 ; Neuropathy G62.9 and Dysthymia F34.1 [place] [address] [id number] [address] [place] [address] March, [place] [address] [address] Sep, Hyperglycemia R73.9 [place] [id number] [place] [address] Sep, Hyperglycemia R73.9 [place] [address] [address] Sep, Raynauds disease I73.00 ; Ve nous insufficiency I87.2 and Encounter for immunization Z23 [place] [id number] [place] [address] Jun, [place] [id number] [place] [address] May, [place] [address] [address] May, Other chronic pain G89.29 [place] [address] [id number] [address] [place] [address] May, Raynauds disease I73.00 ; Ve nous insufficiency I87.2 and Low back pain M54.5 [place] [address] [id number] [place] [address] 13 Dec, 2016 Raynauds disease I73.00 ; Ve nous insufficiency I87.2 ; Low back pain M54.5 and Other chronic pain G89.29 [facility] [address] [facility] [id number] [address] [place] [address] 18 Nov, 2016 [facility] [address] [facility] [id number] [address] [place] [address] Nov, Muscle spasm M62.838 [facility] [address] [id number] [address] [place] [address] 16 Nov, 2016 [facility] [address] [id number] [address] [place] [address] Oct, Folliculitis L73.9 and Venou s insufficiency I87.2 [facility] [address] [id number] [address] [place] [address] Sep, Dermatitis L30.9 and Raynaud s disease I73.00 [facility] [address] [id number] [address] [place] [address] Sep, Rash and nonspecific skin er uption R21 [facility] [address] [facility] [id number] [address] [place] [address] Aug, Skin infection L08.9 [facility] [address] [id number] [address] [place] [address] May, Infected smith L08.9 [facility] [address] [id number] [address] [place] [address] May, Skin infection L08.9 [facility] [address] [id number] [address] [place] [address] Dec, [facility] [address] [facility] [id number] [address] [place] [address] Nov, [facility] [address] [id number] [address] [place] [address] Nov, [facility] [address] [id number] [address] [place] [address] Nov, Raynauds disease I73.00 [facility] [address] [facility] [id number] [address] [place] [address] Nov, Raynauds disease I73.00 ; Le g cramps R25.2 ; Venous insufficiency I87.2 and Routine adult health maintenance Z00.00 [facility] [address] [facility] [id number] [address] [place] [address] Jul, Infected sebaceous cyst 706. 2 [facility] [address] [id number] [address] [place] [address] Jun, [facility] [address] [facility] [id number] [address] [place] [address] Jun, [facility] [address] [facility] [id number] [address] [place] [address] Jun, Venous insufficiency 459.81 and Raynauds disease 443.0 [facility] [address] [facility] [id number] [address] [place] [address] Feb, [facility] [address] [facility] [id number] [address] [place] [address] Feb, [facility] [address] [facility] [id number] [address] [place] [address] Jan, [facility] [address] [facility] [id number] [address] [place] [address] Jan, [facility] [address] [facility] [id number] [address] [place] [address] Dec, [facility] [address] [facility] [id number] [address] [place] [phone] Dec, [facility] [address] [facility] [id number] [address] [place] [address] Dec, [facility] [address] [facility] [id number] [address] [place] [address] Dec, [facility] [address] [facility] [id number] [address] [place] [phone] Nov, [facility] [address] [id number] [address] [place] [address], [place] [address] Nov, [facility] [address] [id number] [address] [place] [address], [place] [address] Oct, [facility] [address] [id number] [address] [place] [address], [place] [address] Oct, [facility] [address] [id number] [address] [place] [address], [place] [address] Aug, [facility] [address] [id number] [address] [place] [address], [place] [address] Aug, [facility] [address] [id number] [address] [place] [address], [place] [address] Aug, [facility] [address] [id number] [address] [place] [address], [place] [address] Jul, [facility] [address] [id number] [address] [place] [address], [place] [address] Jul, [facility] [address] [id number] [address] [place] [address], [place] [address] Jul, [facility] [address] [id number] [address] [place] [address], [place] [address] Jul, [facility] [address] [id number] [address] [place] [address], [place] [address] Jun, [facility] [address] [id number] [address] [place] [address], [place] [address] Jun, [facility] [address] [id number] [address] [place] [address], [place] [address] Jun, [facility] [address] [id number] [address] [place] [address], [place] [address] Jun, [facility] [address] [id number] [address] [place] [address], [place] [address] May, [facility] [address] [id number] [facility] [place] [address] May, [facility] [address] [id number] [facility] [place] [address] May, [facility] [address] [id number] [facility] [place] [address] 15 May, 2014 [facility] [address] [id number] [address] [place] [address], [place] [address] May, [facility] [address] [id number] [address] [place] [address], [place] [address] May, [facility] [address] [id number] [address] [place] [address], [place] [address] May, [facility] [address] [id number] [address] [place] [address], [place] [address] Apr, [facility] [address] [id number] [address] [place] [address], [place] [address] Apr, [facility] [address] [id number] [address] [place] [address], [place] [address] Apr, [facility] [address] [id number] [address] [place] [address], [place] [address] Apr, [facility] [address] [id number] [address] [place] [address], [place] [address] March, [facility] [address] [id number] [address] [place] [address], [place] [address] March, [facility] [address] [id number] [address] [place] [address], [place] [address] March, [facility] [address] [id number] [address] [place] [address], [place] [address] March, [facility] [address] [id number] [address] [place] [address], [place] [address] March, [facility] [address] [id number] [address] [place] [address], [place] [address] March, [facility] [address] [id number] [address] [place] [address], [place] [address] March, [facility] [address] [id number] [address] [place] [address], [place] [address] Feb, [facility] [address] [id number] [address] [place] [address], [place] [address] Feb, [facility] [place] [id number] Feb, [facility] [address] [id number] [address] [place] [address], [place] [address] Feb, [facility] [address] [id number] [address] [place] [address], [place] [address] Feb, [facility] [address] [id number] [address] [place] [address], [place] [address] Feb, [facility] [address] [id number] [address] [place] [address], [place] [address] Jan, [facility] [address] [id number] [address] [place] [address], [place] [address] Jan, [facility] [address] [id number] [address] [place] [address], [place] [address] Jan, [facility] [address] [id number] [address] [place] [address], [place] [address] Jan, [facility] [address] [id number] [address] [place] [address], [place] [address] Jan, [facility] [address] [id number] [address] [place] [address], [place] [address] Jan, [facility] [address] [id number] [address] [place] [address], [place] [address] Jan, [facility] [address] [id number] [address] [place] [address], [place] [address] Jan, [facility] [address] [id number] [address] [place] [address], [place] [address] Jan, [facility] [address] [id number] [facility] [place] [address] Jan, [facility] [address] [id number] [facility] [place] [address] Jan, [facility] [address] [id number] [facility] [place] [address] 17 Jan, 2014 [facility] [address] [id number] [address] [place] [address], [place] [address] Jan, [facility] [address] [id number] [facility] [place] [address] Jan, [facility] [address] [id number] [address] [place] [address], [place] [address] Jan, [facility] [address] [id number] [address] [place] [address], [place] [address] Jan, [facility] [address] [id number] [address] [place] [address], [place] [address] Jan, [facility] [address] [id number] [address] [place] [address], [place] [address] Jan, [facility] [address] [id number] [address] [place] [address], [place] [address] Dec, [facility] [address] [id number] [address] [place] [address], [place] [address] Dec, [facility] [address] [id number] [address] [place] [address], [place] [address] Dec, [facility] [address] [id number] [address] [place] [address], [place] [address] Dec, [facility] [address] [id number] [address] [place] [address], [place] [address] 14 Dec, 2013 [facility] [address] [id number] [address] [place] [address], [place] [address] 07 Dec, 2013 [facility] [address] [id number] [address] [place] [address], [place] [address] 07 Dec, 2013 [facility] [address] [id number] [address] [place] [address], [place] [address] Dec, [facility] [address] [id number] [address] [place] [address], [place] [address] Dec, [facility] [address] [id number] [address] [place] [address], [place] [address] Dec, [facility] [address] [id number] [address] [place] [address], [place] [address] Dec, [facility] [address] [id number] [address] [place] [address], [place] [address] Dec, [facility] [address] [id number] [address] [place] [address], [place] [address] Nov, [facility] [address] [id number] [address] [place] [address], [place] [address] Nov, [facility] [address] [id number] [address] [place] [address], [place] [address] Nov, [facility] [address] [id number] [address] [place] [address], [place] [address] Nov, [facility] [address] [id number] [address] [place] [address], [place] [address] Nov, [facility] [address] [id number] [address] [place] [address], [place] [address] Nov, [facility] [address] [id number] [address] [place] [address], [place] [address] Nov, [facility] [address] [id number] [address] [place] [address], [place] [address] Oct, [facility] [address] [id number] [address] [place] [address], [place] [address] Oct, [facility] [address] [id number] [address] [place] [address], [place] [address] Sep, [facility] [address] [id number] [address] [place] [address], [place] [address] Sep, [facility] [address] [id number] [address] [place] [address], [place] [address] Sep, [facility] [address] [id number] [address] [place] [address], [place] [address] Sep, [facility] [address] [id number] [address] [place] [address], [place] [address] Aug, [facility] [address] [id number] [address] [place] [address], [place] [address] Aug, [facility] [address] [id number] [address] [place] [address], [place] [address] Aug, [facility] [address] [id number] [address] [place] [address], [place] [address] Jul, [facility] [address] [id number] [address] [place] [address], [place] [address] Jul, [facility] [address] [id number] [address] [place] [address], [place] [address] Jun, [facility] [address] [id number] [address] [place] [address], [place] [address] Jun, [facility] [address] [id number] [address] [place] [address], [place] [address] Jun, [facility] [address] [id number] [address] [place] [address] May, [facility] [address] [id number] [address] [place] [address], [place] [address] May, [facility] [address] [id number] [address] [place] [address], [place] [address] May, [facility] [address] [id number] [address] [place] [address], [place] [address] Apr, [facility] [address] [id number] [address] [place] [address], [place] [address] 18 Apr, 2013 [facility] [address] [id number] [address] [place] [address], [place] [address] March, [facility] [address] [id number] [address] [place] [address], [place] [address] Feb, [facility] [address] [id number] [address] [place] [address], [place] [address] Jan, [facility] [address] [id number] [address] [place] [address], [place] [address] Jan, [facility] [address] [id number] [address] [place] [address], [place] [address] 07 Dec, 2012 [facility] [address] [id number] [address] [place] [address], [place] [address] Nov, [facility] [address] [id number] [address] [place] [address], [place] [address] Oct, [facility] [address] [id number] [address] [place] [address], [place] [address] Oct, [facility] [address] [id number] [address] [place] [address], [place] [address] 30 Sep, 2012 [facility] [address] [id number] [address] [place] [address], [place] [address] 29 Sep, 2012 [facility] [address] [id number] [address] [place] [address], [place] [address] 29 Sep, 2012 [facility] [address] [id number] [address] [place] [address], [place] [address] 28 Sep, 2012 [facility] [address] [id number] [address] [place] [address], [place] [address] 13 Sep, 2012 [facility] [address] [id number] [address] [place] [address], [place] [address] 13 Sep, 2012 [facility] [address] [id number] [address] [place] [address], [place] [address] Sep, [facility] [address] [id number] [address] [place] [address], [place] [address] Sep, [facility] [address] [id number] [address] [place] [address], [place] [address] Jul, [facility] [address] [id number] [address] [place] [address], [place] [address] Jun, [facility] [address] [id number] [address] [place] [address], [place] [address] Jun, [facility] [address] [id number] [address] [place] [address], [place] [address] Jun, [facility] [address] [id number] [address] [place] [address], [place] [address] Jun, [facility] [address] [id number] [address] [place] [address], [place] [address] May, [facility] [address] [id number] [address] [place] [address], [place] [address] Apr, [facility] [address] [id number] [address] [place] [address], [place] [address] Jan, [facility] [address] [id number] [address] [place] [address], [place] [address] Dec, [facility] [address] [id number] [address] [place] [address], [place] [address] Dec, [facility] [address] [id number] [address] [place] [address], [place] [address] Nov, [facility] [address] [id number] [address] [place] [address], [place] [address] Oct, [facility] [address] [id number] [address] [place] [address], [place] [address] Oct, [facility] [address] [id number] [address] [place] [address], [place] [address] Aug, [facility] [address] [id number] [address] [place] [address], [place] [address] 18 Aug, 2011 [facility] [address] [id number] [address] [place] [address], [place] [address] 18 Aug, 2011 [facility] [address] [id number] [address] [place] [address], [place] [address] 14 Aug, 2011 [facility] [address] [id number] [address] [place] [address], [place] [address] 11 Aug, 2011 [facility] [address] [id number] [address] [place] [address], [place] [address] 11 Aug, 2011 [facility] [address] [id number] [address] [place] [address], [place] [id number] 19 May, 2011 [facility] [address] [id number] [address] [place] [address], [place] [address] Apr, [facility] [address] [id number] [address] [place] [address], [place] [address] 18 Feb, 2011 [facility] [address] [id number] [address] [place] [address], [place] [address] Oct, [facility] [address] [id number] [address] [place] [address], [place] [address] Oct, [facility] [address] [id number] [address] [place] [address], [place] [address] Oct, [facility] [address] [id number] [address] [place] [address], [place] [id number] 09 Sep, 2010 [facility] [address] [id number] [address] [place] [address], [place] [address] 26 Aug, 2010 [facility] [address] [id number] [address] [place] [address], [place] [address] 16 Jul, 2010 [facility] [address] [id number] [address] [place] [address], [place] [address] 13 May, 2010 [facility] [address] [id number] [address] [place] [address], [place] [address] Dec, [facility] [address] [id number] [address] [place] [id number] Nov, [facility] [address] [id number] [address] [place] [id number] Oct, [facility] [address] [id number] [address] [place] [id number] Sep, [facility] [address] [facility] [id number] [address] [place] [id number] Sep, [facility] [address] [facility] [id number] [address] [place] [id number] Jul, [facility] [address] [facility] [id number] [address] [place] [id number] Jun, [facility] [address] [facility] [id number] [address] [place] [id number] May, IMMUNIZATIONS No Known Immunizations SOCIAL HISTORY Never Assessed REASON FOR VISIT [facility] [place] PLAN OF CARE VITAL SIGNS MEDICATIONS No [...]
--- OUTSIDE RECORDS SUMMARY | 2020-06-11 21:01 | XMS REPORT ---
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 Name Role Phone Migration, Doctor Unavailable Unavailable PROBLEMS Type Condition ICD9-CM Code [id number] Code Onset Dates Condition S tatus SNOMED Code Problem Raynauds disease I73.00 Active 195 687604 Problem Venous insufficiency I87.2 Active 72989024 Problem Neuropathy G62.9 Active 925383567 Problem Hypokalemia E87.6 Active 22024082 Problem Other chronic pain G89.29 Active 8 4809314 Problem Low back pain M54.5 Active 819849 009 Problem Congenital deafness H90.5 Active 56754673 Problem Dysthymia F34.1 Active [id number] ALLERGIES No Information ENCOUNTERS Encounter Location Date Diagnosis [facility] [address] [id number] [address] [place] [address] Jan, Abscess of left knee L02.416 [facility] [address] [id number] [address] [place] [address] Jan, Prediabetes R73.03 ; Raynaud s disease I73.00 and Venous insufficiency I87.2 [facility] [address] [id number] [address] [place] [address] Oct, Neuropathy G62.9 ; Low back pain M54.5 and URI (upper respiratory infection) J06.9 [facility] [address] [id number] [address] [place] [address] Jul, Raynauds disease I73.00 and Hypokalemia E87.6 [facility] [address] [id number] [address] [place] [address] May, Medicare annual wellness vis it, initial Z00.00 ; Dysthymia F34.1 ; Raynauds disease I73.00 ; Venous insufficiency I87.2 ; Congenital deafness H90.5 and Neuropathy G62.9 [place] [id number] [id number] [address] [place] [address] Apr, [place] [id number] [place] [address] Apr, Prediabetes R73.03 ; Raynaud s disease I73.00 ; Venous insufficiency I87.2 ; Neuropathy G62.9 and Dysthymia F34.1 [place] [address] [id number] [address] [place] [address] March, [place] [address] [address] Sep, Hyperglycemia R73.9 [place] [id number] [place] [address] Sep, Hyperglycemia R73.9 [place] [address] [address] Sep, Raynauds disease I73.00 ; Ve nous insufficiency I87.2 and Encounter for immunization Z23 [place] [id number] [place] [address] Jun, [place] [id number] [place] [address] May, [place] [address] [address] May, Other chronic pain G89.29 [place] [address] [id number] [address] [place] [address] May, Raynauds disease I73.00 ; Ve nous insufficiency I87.2 and Low back pain M54.5 [place] [address] [id number] [address] [place] [address] 13 Dec, 2016 Raynauds disease I73.00 ; Ve nous insufficiency I87.2 ; Low back pain M54.5 and Other chronic pain G89.29 [facility] [address] [facility] [id number] [address] [place] [address] 18 Nov, 2016 [facility] [address] [facility] [id number] [address] [place] [address] Nov, Muscle spasm M62.838 [facility] [address] [id number] [address] [place] [address] 16 Nov, 2016 [facility] [address] [id number] [address] [place] [address] Oct, Folliculitis L73.9 and Venou s insufficiency I87.2 [facility] [address] [id number] [address] [place] [address] Sep, Dermatitis L30.9 and Raynaud s disease I73.00 [facility] [address] [id number] [address] [place] [address] Sep, Rash and nonspecific skin er uption R21 [facility] [address] [facility] [id number] [address] [place] [address] Aug, Skin infection L08.9 [facility] [address] [id number] [address] [place] [address] May, Infected smith L08.9 [facility] [address] [id number] [address] [place] [address] May, Skin infection L08.9 [facility] [address] [id number] [address] [place] [address] Dec, [facility] [address] [facility] [id number] [address] [place] [address] Nov, [facility] [address] [id number] [address] [place] [address] Nov, [facility] [address] [id number] [address] [place] [address] Nov, Raynauds disease I73.00 [facility] [address] [facility] [id number] [address] [place] [address] Nov, Raynauds disease I73.00 ; Le g cramps R25.2 ; Venous insufficiency I87.2 and Routine adult health maintenance Z00.00 [facility] [address] [facility] [id number] [address] [place] [address] Jul, Infected sebaceous cyst 706. 2 [facility] [address] [id number] [address] [place] [address] Jun, [facility] [address] [facility] [id number] [address] [place] [address] Jun, [facility] [address] [facility] [id number] [address] [place] [address] Jun, Venous insufficiency 459.81 and Raynauds disease 443.0 [facility] [address] [facility] [id number] [address] [place] [id number] Feb, [facility] [address] [facility] [id number] [address] [place] [phone] Feb, [facility] [address] [facility] [id number] [address] [place] [address] Jan, [facility] [address] [facility] [id number] [address] [place] [phone] Jan, [facility] [address] [facility] [id number] [address] [place] [address] Dec, [facility] [address] [facility] [id number] [address] [place] [address] Dec, [facility] [address] [facility] [id number] [address] [place] [address] Dec, [facility] [address] [facility] [id number] [address] [place] [address] Dec, [facility] [address] [facility] [id number] [address] [place] [address] Nov, [facility] [address] [id number] [address] [place] [address], [place] [address] Nov, [facility] [address] [id number] [address] [place] [address], [place] [address] Oct, [facility] [address] [id number] [address] [place] [address], [place] [address] Oct, [facility] [address] [id number] [address] [place] [address], [place] [address] Aug, [facility] [address] [id number] [address] [place] [address], [place] [address] Aug, [facility] [address] [id number] [address] [place] [address], [place] [address] Aug, [facility] [address] [id number] [address] [place] [address], [place] [address] Jul, [facility] [address] [id number] [address] [place] [address], [place] [address] Jul, [facility] [address] [id number] [address] [place] [address], [place] [address] Jul, [facility] [address] [id number] [address] [place] [address], [place] [address] Jul, [facility] [address] [id number] [address] [place] [address], [place] [address] Jun, [facility] [address] [id number] [address] [place] [address], [place] [address] Jun, [facility] [address] [id number] [address] [place] [address], [place] [address] Jun, [facility] [address] [id number] [address] [place] [address], [place] [address] Jun, [facility] [address] [id number] [address] [place] [address], [place] [address] May, [facility] [address] [id number] [facility] [place] [address] May, [facility] [address] [id number] [facility] [place] [address] May, [facility] [address] [id number] [facility] [place] [address] 15 May, 2014 [facility] [address] [id number] [address] [place] [address], [place] [address] May, [facility] [address] [id number] [address] [place] [address], [place] [address] May, [facility] [address] [id number] [address] [place] [address], [place] [address] May, [facility] [address] [id number] [address] [place] [address], [place] [address] Apr, [facility] [address] [id number] [address] [place] [address], [place] [address] Apr, [facility] [address] [id number] [address] [place] [address], [place] [address] Apr, [facility] [address] [id number] [address] [place] [address], [place] [address] Apr, [facility] [address] [id number] [address] [place] [address], [place] [address] March, [facility] [address] [id number] [address] [place] [address], [place] [address] March, [facility] [address] [id number] [address] [place] [address], [place] [address] March, [facility] [address] [id number] [address] [place] [address], [place] [address] March, [facility] [address] [id number] [address] [place] [address], [place] [address] March, [facility] [address] [id number] [address] [place] [address], [place] [address] March, [facility] [address] [id number] [address] [place] [address], [place] [address] March, [facility] [address] [id number] [address] [place] [address], [place] [address] Feb, [facility] [address] [id number] [address] [place] [address], [place] [address] Feb, [facility] [address] [place] [id number] Feb, [facility] [address] [id number] [address] [place] [address], [place] [address] Feb, [facility] [address] [id number] [address] [place] [address], [place] [address] Feb, [facility] [address] [id number] [address] [place] [address], [place] [address] Feb, [facility] [address] [id number] [address] [place] [address], [place] [address] Jan, [facility] [address] [id number] [address] [place] [address], [place] [address] Jan, [facility] [address] [id number] [address] [place] [address], [place] [address] Jan, [facility] [address] [id number] [address] [place] [address], [place] [address] Jan, [facility] [address] [id number] [address] [place] [address], [place] [address] Jan, [facility] [address] [id number] [address] [place] [address], [place] [address] Jan, [facility] [address] [id number] [address] [place] [address], [place] [address] Jan, [facility] [address] [id number] [address] [place] [address], [place] [address] Jan, [facility] [address] [id number] [address] [place] [address], [place] [address] Jan, [facility] [address] [id number] [facility] [place] [address] Jan, [facility] [address] [id number] [facility] [place] [address] Jan, [facility] [address] [id number] [facility] [place] [address] 17 Jan, 2014 [facility] [address] [id number] [address] [place] [address], [place] [address] Jan, [facility] [address] [id number] [facility] [place] [address] Jan, [facility] [address] [id number] [address] [place] [address], [place] [address] Jan, [facility] [address] [id number] [address] [place] [address], [place] [address] Jan, [facility] [address] [id number] [address] [place] [address], [place] [address] Jan, [facility] [address] [id number] [address] [place] [address], [place] [address] Jan, [facility] [address] [id number] [address] [place] [address], [place] [address] Dec, [facility] [address] [id number] [address] [place] [address], [place] [address] Dec, [facility] [address] [id number] [address] [place] [address], [place] [address] Dec, [facility] [address] [id number] [address] [place] [address], [place] [address] Dec, [facility] [address] [id number] [address] [place] [address], [place] [address] 14 Dec, 2013 [facility] [address] [id number] [address] [place] [address], [place] [address] 07 Dec, 2013 [facility] [address] [id number] [address] [place] [address], [place] [address] 07 Dec, 2013 [facility] [address] [id number] [address] [place] [address], [place] [address] Dec, [facility] [address] [id number] [address] [place] [address], [place] [address] Dec, [facility] [address] [id number] [address] [place] [address], [place] [address] Dec, [facility] [address] [id number] [address] [place] [address], [place] [address] Dec, [facility] [address] [id number] [address] [place] [address], [place] [address] Dec, [facility] [address] [id number] [address] [place] [address], [place] [address] Nov, [facility] [address] [id number] [address] [place] [address], [place] [address] Nov, [facility] [address] [id number] [address] [place] [address], [place] [address] Nov, [facility] [address] [id number] [address] [place] [address], [place] [address] Nov, [facility] [address] [id number] [address] [place] [address], [place] [address] Nov, [facility] [address] [id number] [address] [place] [address], [place] [address] Nov, [facility] [address] [id number] [address] [place] [address], [place] [address] Nov, [facility] [address] [id number] [address] [place] [address], [place] [address] Oct, [facility] [address] [id number] [address] [place] [address], [place] [address] Oct, [facility] [address] [id number] [address] [place] [address], [place] [address] Sep, [facility] [address] [id number] [address] [place] [address], [place] [address] Sep, [facility] [address] [id number] [address] [place] [address], [place] [address] Sep, [facility] [address] [id number] [address] [place] [address], [place] [address] Sep, [facility] [address] [id number] [address] [place] [address], [place] [address] Aug, [facility] [address] [id number] [address] [place] [address], [place] [address] Aug, [facility] [address] [id number] [address] [place] [address], [place] [address] Aug, [facility] [address] [id number] [address] [place] [address], [place] [address] Jul, [facility] [address] [id number] [address] [place] [address], [place] [address] Jul, [facility] [address] [id number] [address] [place] [address], [place] [address] Jun, [facility] [address] [id number] [address] [place] [address], [place] [address] Jun, [facility] [address] [id number] [address] [place] [address], [place] [address] Jun, [facility] [address] [id number] [address] [place] [address] May, [facility] [address] [id number] [address] [place] [address], [place] [address] May, [facility] [address] [id number] [address] [place] [address], [place] [address] May, [facility] [address] [id number] [address] [place] [address], [place] [address] Apr, [facility] [address] [id number] [address] [place] [address], [place] [address] 18 Apr, 2013 [facility] [address] [id number] [address] [place] [address], [place] [address] March, [facility] [address] [id number] [address] [place] [address], [place] [address] Feb, [facility] [address] [id number] [address] [place] [address], [place] [address] Jan, [facility] [address] [id number] [address] [place] [address], [place] [address] Jan, [facility] [address] [id number] [address] [place] [address], [place] [address] 07 Dec, 2012 [facility] [address] [id number] [address] [place] [address], [place] [address] Nov, [facility] [address] [id number] [address] [place] [address], [place] [address] Oct, [facility] [address] [id number] [address] [place] [address], [place] [address] Oct, [facility] [address] [id number] [address] [place] [address], [place] [address] 30 Sep, 2012 [facility] [address] [id number] [address] [place] [address], [place] [address] 29 Sep, 2012 [facility] [address] [id number] [address] [place] [address], [place] [address] 29 Sep, 2012 [facility] [address] [id number] [address] [place] [address], [place] [address] 28 Sep, 2012 [facility] [address] [id number] [address] [place] [address], [place] [address] 13 Sep, 2012 [facility] [address] [id number] [address] [place] [address], [place] [address] 13 Sep, 2012 [facility] [address] [id number] [address] [place] [address], [place] [address] Sep, [facility] [address] [id number] [address] [place] [address], [place] [address] Sep, [facility] [address] [id number] [address] [place] [address], [place] [address] Jul, [facility] [address] [id number] [address] [place] [address], [place] [id number] Jun, [facility] [address] [id number] [address] [place] [address], [place] [id number] Jun, [facility] [address] [id number] [address] [place] [address], [place] [id number] Jun, [facility] [address] [id number] [address] [place] [address], [place] [id number] Jun, [facility] [address] [id number] [address] [place] [address], [place] [id number] May, [facility] [address] [id number] [address] [place] [address], [place] [id number] Apr, [facility] [address] [id number] [address] [place] [address], [place] [id number] Jan, [facility] [address] [id number] [address] [place] [address], [place] [id number] Dec, [facility] [address] [id number] [address] [place] [address], [place] [id number] Dec, [facility] [address] [id number] [address] [place] [address], [place] [id number] Nov, [facility] [address] [id number] [address] [place] [address], [place] [id number] Oct, [facility] [address] [id number] [address] [place] [address], [place] [id number] Oct, [facility] [address] [id number] [address] [place] [address], [place] [id number] Aug, [facility] [address] [id number] [address] [place] [address], [place] [id number] 18 Aug, 2011 [facility] [address] [id number] [address] [place] [address], [place] [id number] 18 Aug, 2011 [facility] [address] [id number] [address] [place] [address], [place] [id number] 14 Aug, 2011 [facility] [address] [id number] [address] [place] [address], [place] [id number] 11 Aug, 2011 [facility] [address] [id number] [address] [place] [address], [place] [id number] 11 Aug, 2011 [facility] [address] [id number] [address] [place] [address], [place] [id number] 19 May, 2011 [facility] [address] [id number] [address] [place] [address], [place] [id number] Apr, [facility] [address] [id number] [address] [place] [address], [place] [id number] 18 Feb, 2011 [facility] [address] [id number] [address] [place] [address], [place] [id number] Oct, [facility] [address] [id number] [address] [place] [address], [place] [id number] Oct, [facility] [address] [id number] [address] [place] [address], [place] [id number] Oct, [facility] [address] [id number] [address] [place] [address], [place] [id number] 09 Sep, 2010 [facility] [address] [id number] [address] [place] [address], [place] [id number] 26 Aug, 2010 [facility] [address] [id number] [address] [place] [address], [place] [id number] 16 Jul, 2010 [facility] [address] [id number] [address] [place] [address], [place] [id number] 13 May, 2010 [facility] [address] [id number] [address] [place] [address], [place] [id number] Dec, [facility] [address] [id number] [address] [place] [id number] Nov, [facility] [address] [id number] [address] [place] [id number] Oct, [facility] [address] [id number] [address] [place] [id number] Sep, [facility] [address] [facility] [id number] [address] [place] [id number] Sep, [facility] [address] [facility] [id number] [address] [place] [id number] Jul, [facility] [address] [facility] [id number] [address] [place] [id number] Jun, [facility] [facility] [address] [facility] [id number] [address] [place] [address] May, IMMUNIZATIONS No Known Immunizations SOCIAL HISTORY Never Assessed REASON FOR VISIT EMR-[facility] [place] PLAN OF CARE VITAL SIGNS MEDICATIONS No [...]
--- OUTSIDE RECORDS SUMMARY | 2020-06-11 21:02 | XMS REPORT ---
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 Class Name Role Phone PAULA ROBLEDO Unavailable PROBLEMS Type Condition ICD9-CM Code QWE16-WP Code Onset Dates Condition S tatus SNOMED Code Problem Raynauds disease I73.00 Active 195 357903 Problem Neuropathy G62.9 Active 743017364 Problem Dysthymia F34.1 Active 86298469 Problem Other chronic pain G89.29 Active 8 2159835 Problem Venous insufficiency I87.2 Active 79510913 Problem Congenital deafness H90.5 Active 98492930 Problem Low back pain M54.5 Active 460961 009 ALLERGIES No Known Allergies ENCOUNTERS Encounter Location Date Diagnosis [place] [id number] [place] [id number] [place] [address] May, Medicare annual wellness vis it, initial Z00.00 ; Dysthymia F34.1 ; Raynauds disease I73.00 ; Venous insufficiency I87.2 ; Congenital deafness H90.5 and Neuropathy G62.9 [place] [address] [place] [id number] [place] [address] Apr, [place] [address] [place] [id number] [place] [address] Apr, Prediabetes R73.03 ; Raynaud s disease I73.00 ; Venous insufficiency I87.2 ; Neuropathy G62.9 and Dysthymia F34.1 [facility] [address] [place] [id number] [place] [address] March, [facility] [address] [place] [id number] [place] [address] Sep, Hyperglycemia R73.9 [place] [address] [address] 07 Sep, 2017 Hyperglycemia R73.9 [place] [address] [address] Sep, Raynauds disease I73.00 ; Ve nous insufficiency I87.2 and Encounter for immunization Z23 [place] [address] [address] Jun, [facility] [address] [address] May, [place] [address] [address] May, Other chronic pain G89.29 [place] [address] [address] May, Raynauds disease I73.00 ; Ve nous insufficiency I87.2 and Low back pain M54.5 [place] [address] [address] Dec, Raynauds disease I73.00 ; Ve nous insufficiency I87.2 ; Low back pain M54.5 and Other chronic pain G89.29 [place] [address] [address] Nov, [facility] [address] [address] Nov, Muscle spasm M62.838 [facility] [address] [address] Nov, [place] [address] [address] Oct, Folliculitis L73.9 and Venou s insufficiency I87.2 [place] [address] [address] Sep, Dermatitis L30.9 and Raynaud s disease I73.00 [facility] [address] [id number] [address] [place] [address] Sep, Rash and nonspecific skin er uption R21 [facility] [address] [id number] [address] [place] [address] Aug, Skin infection L08.9 [facility] [address] [facility] [id number] [address] [place] [address] May, Infected smith L08.9 [facility] [address] [facility] [id number] [address] [place] [address] May, Skin infection L08.9 [facility] [address] [facility] [id number] [address] [place] [address] Dec, [facility] [address] [facility] [id number] [address] [place] [address] Nov, [facility] [address] [facility] [id number] [address] [place] [address] Nov, [facility] [address] [facility] [id number] [address] [place] [address] Nov, Raynauds disease I73.00 [facility] [address] [facility] [id number] [address] [place] [address] Nov, Raynauds disease I73.00 ; Le g cramps R25.2 ; Venous insufficiency I87.2 and Routine adult health maintenance Z00.00 [facility] [address] [facility] [id number] [address] [place] [address] Jul, Infected sebaceous cyst 706. 2 [facility] [address] [facility] [id number] [address] [place] [address] Jun, [facility] [address] [facility] [id number] [address] [place] [address] Jun, [facility] [address] [facility] [id number] [address] [place] [address] Jun, Venous insufficiency 459.81 and Raynauds disease 443.0 [facility] [address] [id number] [address] [place] [address] Feb, [facility] [address] [id number] [address] [place] [address] Feb, [facility] [address] [id number] [address] [place] [address] Jan, [facility] [address] [id number] [address] [place] [address] Jan, [facility] [address] [id number] [address] [place] [address] Dec, [facility] [address] [id number] [address] [place] [address] Dec, [facility] [address] [id number] [address] [place] [address] Dec, [facility] [address] [id number] [address] [place] [address] Dec, [facility] [address] [id number] [address] [place] [address] Nov, [facility] [address] [id number] [address] [place] [address] Nov, [facility] [address] [id number] [address] [place] [address] Oct, [facility] [address] [id number] [address] [place] [address] Oct, [facility] [address] [id number] [address] [place] [address] Aug, [facility] [address] [id number] [address] [place] [address] Aug, [facility] [address] [id number] [address] [place] [address] Aug, [facility] [address] [id number] [address] [place] [address], [place] [address] Jul, [facility] [address] [id number] [address] [place] [address], [place] [address] Jul, [facility] [address] [id number] [address] [place] [address], [place] [address] Jul, [facility] [address] [id number] [address] [place] [address], [place] [address] Jul, [facility] [address] [id number] [address] [place] [address], [place] [address] Jun, [facility] [address] [id number] [address] [place] [address], [place] [address] Jun, [facility] [address] [id number] [address] [place] [address], [place] [address] Jun, [facility] [address] [id number] [address] [place] [address], [place] [address] Jun, [facility] [address] [id number] [address] [place] [address], [place] [address] May, [facility] [address] [id number] [address] [place] [address], [place] [address] May, [facility] [address] [id number] [address] [place] [address], [place] [address] May, [facility] [address] [id number] [address] [place] [address], [place] [address] May, [facility] [address] [id number] [address] [place] [address], [place] [address] May, [facility] [address] [id number] [address] [place] [address], [place] [address] May, [facility] [address] [id number] [address] [place] [address], [place] [address] May, [facility] [address] [id number] [address] [place] [address], [place] [address] Apr, [facility] [address] [id number] [address] [place] [address], [place] [address] Apr, [facility] [address] [id number] [address] [place] [address], [place] [address] Apr, [facility] [address] [id number] [address] [place] [address], [place] [address] Apr, [facility] [address] [id number] [address] [place] [address], [place] [address] March, [facility] [address] [id number] [address] [place] [address], [place] [address] March, [facility] [address] [id number] [address] [place] [address], [place] [address] March, [facility] [address] [id number] [address] [place] [address], [place] [address] March, [facility] [address] [id number] [address] [place] [address], [place] [address] March, [facility] [address] [id number] [address] [place] [address], [place] [address] March, [facility] [address] [id number] [address] [place] [address], [place] [address] March, [facility] [address] [id number] [address] [place] [address], [place] [address] Feb, [facility] [address] [id number] [address] [place] [address], [place] [address] Feb, [facility] [address] [place] [id number] Feb, [facility] [address] [id number] [address] [place] [address], [place] [address] Feb, [facility] [address] [id number] [address] [place] [address], [place] [address] Feb, [facility] [address] [id number] [facility] [address] Feb, [facility] [address] [id number] [facility] [address] Jan, [facility] [address] [id number] [facility] [address] Jan, [facility] [address] [id number] [facility] [address] Jan, [facility] [address] [id number] [facility] [address] Jan, [facility] [address] [id number] [facility] [address] Jan, [facility] [address] [id number] [facility] [address] Jan, [facility] [address] [id number] [facility] [address] Jan, [facility] [address] [id number] [facility] [address] Jan, [facility] [address] [id number] [address] [place] [address], [place] [address] Jan, [facility] [address] [id number] [facility] [address] Jan, [facility] [address] [id number] [facility] [address] Jan, [facility] [address] [id number] [facility] [address] Jan, [facility] [address] [id number] [facility] [address] 17 Jan, 2014 [facility] [address] [id number] [facility] [address] Jan, [facility] [address] [id number] [facility] [address] 10 Jan, 2014 [facility] [address] [id number] [facility] [address] 10 Jan, 2014 [facility] [address] [id number] [address] [place] [address], [place] [address] Jan, [facility] [address] [id number] [facility] [address] Jan, [facility] [address] [id number] [address] [place] [address], [place] [address] Dec, [facility] [address] [id number] [address] [place] [address], [place] [address] Dec, [facility] [address] [id number] [address] [place] [address], [place] [address] Dec, [facility] [address] [id number] [address] [place] [address], [place] [address] Dec, [facility] [address] [id number] [address] [place] [address], [place] [address] 14 Dec, 2013 [facility] [address] [id number] [address] [place] [address], [place] [address] 07 Dec, 2013 [facility] [address] [id number] [address] [place] [address], [place] [address] 07 Dec, 2013 [facility] [address] [id number] [address] [place] [address], [place] [address] 06 Dec, 2013 [facility] [address] [id number] [address] [place] [address], [place] [address] 04 Dec, 2013 [facility] [address] [id number] [address] [place] [address], [place] [address] 04 Dec, 2013 [facility] [address] [id number] [address] [place] [address], [place] [address] 04 Dec, 2013 [facility] [address] [id number] [address] [place] [address], [place] [address] 04 Dec, 2013 [facility] [address] [id number] [address] [place] [address], [place] [address] Nov, [facility] [address] [id number] [address] [place] [address], [place] [address] Nov, [facility] [address] [id number] [address] [place] [address], [place] [address] Nov, [facility] [address] [id number] [address] [place] [address], [place] [address] Nov, [facility] [address] [id number] [address] [place] [address], [place] [address] Nov, [facility] [address] [id number] [address] [place] [address], [place] [address] Nov, [facility] [address] [id number] [address] [place] [address], [place] [address] Nov, [facility] [address] [id number] [address] [place] [address], [place] [address] Oct, [facility] [address] [id number] [address] [place] [address], [place] [address] Oct, [facility] [address] [id number] [address] [place] [address], [place] [address] Sep, [facility] [address] [id number] [address] [place] [address], [place] [address] Sep, [facility] [address] [id number] [address] [place] [address], [place] [address] Sep, [facility] [address] [id number] [address] [place] [address], [place] [address] Sep, [facility] [address] [id number] [address] [place] [address], [place] [address] Aug, [facility] [address] [id number] [address] [place] [address], [place] [address] Aug, [facility] [address] [id number] [address] [place] [address], [place] [address] Aug, [facility] [address] [id number] [address] [place] [address], [place] [address] Jul, [facility] [address] [id number] [address] [place] [address], [place] [address] Jul, [facility] [address] [id number] [address] [place] [address], [place] [address] Jun, [facility] [address] [id number] [address] [place] [address], [place] [address] Jun, [facility] [address] [id number] [address] [place] [address], [place] [address] Jun, [facility] [address] [id number] [address] [place] [address], [place] [address] May, [facility] [address] [id number] [address] [place] [address], [place] [address] May, [facility] [address] [id number] [address] [place] [address], [place] [address] May, [facility] [address] [id number] [address] [place] [address], [place] [address] Apr, [facility] [address] [id number] [address] [place] [address], [place] [address] Apr, [facility] [address] [id number] [address] [place] [address], [place] [address] March, [facility] [address] [id number] [address] [place] [address], [place] [address] Feb, [facility] [address] [id number] [address] [place] [address], [place] [address] Jan, [facility] [address] [id number] [address] [place] [address], [place] [address] Jan, [facility] [address] [id number] [address] [place] [address], [place] [address] Dec, [facility] [address] [id number] [address] [place] [address], [place] [address] Nov, [facility] [address] [id number] [address] [place] [address], [place] [address] Oct, [facility] [address] [id number] [address] [place] [address], [place] [address] Oct, [facility] [address] [id number] [address] [place] [address], [place] [address] Sep, [facility] [address] [id number] [address] [place] [address], [place] [address] Sep, [facility] [address] [id number] [address] [place] [address], [place] [address] Sep, [facility] [address] [id number] [address] [place] [address], [place] [address] Sep, [facility] [address] [id number] [address] [place] [address], [place] [address] Sep, [facility] [address] [id number] [address] [place] [address], [place] [address] Sep, [facility] [address] [id number] [address] [place] [address], [place] [address] Sep, [facility] [address] [id number] [address] [place] [address], [place] [address] Sep, [facility] [address] [id number] [address] [place] [address], [place] [address] 04 Jul, 2012 [facility] [address] [id number] [address] [place] [address], [place] [address] Jun, [facility] [address] [id number] [address] [place] [address], [place] [address] Jun, [facility] [address] [id number] [address] [place] [address], [place] [address] 15 Jun, 2012 [facility] [address] [id number] [address] [place] [address], [place] [address] Jun, [facility] [address] [id number] [address] [place] [address], [place] [address] 05 May, 2012 [facility] [address] [id number] [address] [place] [address], [place] [address] Apr, [facility] [address] [id number] [address] [place] [address], [place] [address] Jan, [facility] [address] [id number] [address] [place] [address], [place] [address] Dec, [facility] [address] [id number] [address] [place] [address], [place] [address] Dec, [facility] [address] [id number] [address] [place] [address], [place] [address] Nov, [facility] [address] [id number] [address] [place] [address], [place] [address] Oct, [facility] [address] [id number] [address] [place] [address], [place] [address] 19 Oct, 2011 [facility] [address] [id number] [address] [place] [address], [place] [address] 18 Aug, 2011 [facility] [address] [id number] [address] [place] [id number] 18 Aug, 2011 [facility] [address] [id number] [address] [place] [address], [place] [address] 18 Aug, 2011 [facility] [address] [id number] [address] [place] [id number] 14 Aug, 2011 [facility] [address] [id number] [address] [place] [address], [place] [address] 11 Aug, 2011 [facility] [address] [id number] [address] [place] [address], [place] [address] 11 Aug, 2011 [facility] [address] [id number] [address] [place] [address], [place] [address] 19 May, 2011 [facility] [address] [id number] [address] [place] [address], [place] [address] 13 Apr, 2011 [facility] [address] [id number] [address] [place] [address], [place] [address] 18 Feb, 2011 [facility] [address] [id number] [address] [place] [address], [place] [address] 28 Oct, 2010 [facility] [address] [id number] [address] [place] [address], [place] [address] 21 Oct, 2010 [facility] [address] [id number] [address] [place] [address], [place] [address] 07 Oct, 2010 [facility] [address] [id number] [address] [place] [address], [place] [address] 09 Sep, 2010 [facility] [address] [id number] [address] [place] [address], [place] [address] 26 Aug, 2010 [facility] [address] [id number] [address] [place] [address], [place] [address] 16 Jul, 2010 [facility] [address] [id number] [address] [place] [address], [place] [address] 13 May, 2010 [facility] [address] [id number] [address] [place] [address], [place] [address] 19 Dec, 2009 [facility] [address] [id number] [address] [place] [address], [place] [address] Nov, [facility] [address] [id number] [address] [place] [address], [place] [address] 14 Oct, 2009 [facility] [address] [id number] [address] [place] [address], [place] [address] 27 Sep, 2009 [facility] [address] [id number] [address] [place] [address], [place] [address] 05 Sep, 2009 [facility] [address] [id number] [address] [place] [address], [place] [address] 14 Jul, 2009 [facility] [address] [id number] [address] [place] [address], [place] [address] 17 Jun, 2009 [facility] [address] [facility] [id number] [address] [place] [address] May, IMMUNIZATIONS No Known Immunizations SOCIAL HISTORY Never Assessed REASON FOR VISIT Medicare AWV - Initial Visit PLAN OF CARE Activity Details Follow Up 1 Year Reason: VITAL SIGNS Height 73 in 2018-05-28 Weight 218.6 lbs 2018-05-28 Temperature 97.8 degrees Fahrenheit 2018-05-28 Heart Rate 92 bpm 2018-05-28 Respiratory Rate 22 2018-05-28 BMI 28.84 kg/m2 2018-05-28 Blood pressure systolic 122 mmHg 2018-05-28 Blood pressure diastolic 78 mmHg 2018-05-28 MEDICATIONS Medication Instructions Dosage Frequency Start Date End Date Duration S tatus Lyrica 100 mg Orally Three times a day 1 capsule 8h Nov, Active Nisoldipine ER 34 MG 1 TABLET BY ORAL ROUTE 1 TIME PER DAY Active Klor-Con 10 10 MEQ Orally Once a day 1 tablet with food 24h Nov, Active Potassium & Magnesium Aspartat 250-250 MG Orally twice a day 1 capsule with a meal 12h Jul, 30 days Active Furosemide 20 mg Orally Once a day 1 tablet 24h 30 d ays Active RESULTS No Results PROCEDURES Procedure Date Ordered Result Body Site [facility] VISIT IPPE/AWV May 28, 2018 ANNUAL OLAYINKANES VST; PERSCANDIEC PPS INIT May 28, 2018 PT TOBACCO SCREEN RCVD TLK May 28, 2018 FALL RISK ASSESSMENT DOCD May 28, 2018 INSTRUCTIONS MEDICATIONS ADMINISTERED No Known Medications MEDICAL [...]
--- OUTSIDE RECORDS SUMMARY | 2020-06-11 21:02 | XMS REPORT ---
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 Name Role Phone PAULA ROBLEDO Unavailable PROBLEMS Type Condition ICD9-CM Code QKX99-CL Code Onset Dates Condition S tatus SNOMED Code Problem Venous insufficiency I87.2 Active 93604337 Problem Raynauds disease I73.00 Active 195 463523 Problem Hypokalemia E87.6 Active 57679773 Problem Neuropathy G62.9 Active 478769989 Problem Low back pain M54.5 Active 919381 009 Problem Other chronic pain G89.29 Active 8 7901093 Problem Dysthymia F34.1 Active 15796146 Problem Congenital deafness H90.5 Active [id number] ALLERGIES No Known Allergies ENCOUNTERS Encounter Location Date Diagnosis [facility] [place] [address] [facility] [id number] [address] [place] [address] Jul, Raynauds disease I73.00 and Hypokalemia E87.6 [facility] [place] [address] [place] [place] [id number] [address] [place] [address] May, Medicare annual wellness vis it, initial Z00.00 ; Dysthymia F34.1 ; Raynauds disease I73.00 ; Venous insufficiency I87.2 ; Congenital deafness H90.5 and Neuropathy G62.9 [facility] [place] [address] [facility] [id number] [address] [place] [address] Apr, [facility] [place] [address] [facility] [id number] [address] [place] [address] Apr, Prediabetes R73.03 ; Raynaud s disease I73.00 ; Venous insufficiency I87.2 ; Neuropathy G62.9 and Dysthymia F34.1 [facility] [place] [address] [facility] [id number] [address] [place] [address] March, [facility] [place] [address] [facility] [id number] [address] [place] [address] Sep, Hyperglycemia R73.9 [facility] [place] [address] [facility] [id number] [place] [address] 07 Sep, 2017 Hyperglycemia R73.9 [facility] [place] [address] [place] [id number] [place] [address] 06 Sep, 2017 Raynauds disease I73.00 ; Ve nous insufficiency I87.2 and Encounter for immunization Z23 [facility] [place] [address] [address] Jun, [facility] [place] [address] [place] [id number] [place] [address] May, [facility] [place] [address] [address] May, Other chronic pain G89.29 [facility] [place] [address] [address] May, Raynauds disease I73.00 ; Ve nous insufficiency I87.2 and Low back pain M54.5 [facility] [place] [address] [place] [id number] [address] [place] [address] Dec, Raynauds disease I73.00 ; Ve nous insufficiency I87.2 ; Low back pain M54.5 and Other chronic pain G89.29 [facility] [place] [address] [facility] [id number] [address] [place] [address] Nov, [facility] [place] [address] [place] [id number] [place] [address] Nov, Muscle spasm M62.838 [facility] [address] [facility] [id number] [address] [place] [address] Nov, [facility] [place] [address] [place] [id number] [place] [address] 15 Oct, 2016 Folliculitis L73.9 and Venou s insufficiency I87.2 [facility] [place] [address] [facility] [id number] [address] [place] [address] 17 Sep, 2016 Dermatitis L30.9 and Raynaud s disease I73.00 [facility] [address] [facility] [id number] [address] [place] [address] Sep, Rash and nonspecific skin er uption R21 [facility] [address] [id number] [address] [place] [address] Aug, Skin infection L08.9 [facility] [place] [address] [facility] [id number] [address] [place] [address] May, Infected smith L08.9 [facility] [place] [address] [facility] [id number] [address] [place] [address] May, Skin infection L08.9 [facility] [place] [address] [facility] [id number] [address] [place] [address] Dec, [facility] [place] [address] [facility] [id number] [address] [place] [address] Nov, [facility] [address] [facility] [id number] [address] [place] [address] Nov, [facility] [place] [address] [facility] [id number] [address] [place] [address] Nov, Raynauds disease I73.00 [facility] [place] [address] [facility] [id number] [address] [place] [address] 05 Nov, 2015 Raynauds disease I73.00 ; Le maggi cramps R25.2 ; Venous insufficiency I87.2 and Routine adult health maintenance Z00.00 [facility] [place] [address] [facility] [id number] [address] [place] [address] Jul, Infected sebaceous cyst 706. 2 [facility] [place] [address] [facility] [id number] [address] [place] [address] Jun, [facility] [address] [id number] [address] [place] [address], [place] [address] Jun, [facility] [address] [id number] [address] [place] [address] Jun, Venous insufficiency 459.81 and Raynauds disease 443.0 [facility] [address] [id number] [address] [place] [address] Feb, [facility] [address] [id number] [address] [place] [address], [place] [address] Feb, [facility] [address] [id number] [address] [place] [address], [place] [address] Jan, [facility] [address] [id number] [address] [place] [address] Jan, [facility] [address] [id number] [address] [place] [address] Dec, [facility] [address] [id number] [address] [place] [address] Dec, [facility] [address] [id number] [address] [place] [address] Dec, [facility] [address] [id number] [address] [place] [address] Dec, [facility] [address] [id number] [address] [place] [address] Nov, [facility] [address] [id number] [address] [place] [address] Nov, [facility] [address] [id number] [address] [place] [address] Oct, [facility] [address] [id number] [address] [place] [address] Oct, [facility] [address] [id number] [address] [place] [address] Aug, [facility] [address] [id number] [facility] [place] [place] [address] Aug, [facility] [address] [id number] [address] [place] [address], [place] [address] Aug, [facility] [address] [id number] [address] [place] [address], [place] [address] Jul, [facility] [address] [id number] [address] [place] [address], [place] [address] Jul, [facility] [address] [id number] [address] [place] [address], [place] [address] Jul, [facility] [address] [id number] [address] [place] [address], [place] [address] Jul, [facility] [address] [id number] [address] [place] [address], [place] [address] Jun, [facility] [address] [id number] [address] [place] [address], [place] [address] Jun, [facility] [address] [id number] [address] [place] [address], [place] [address] Jun, [facility] [address] [id number] [address] [place] [address], [place] [address] Jun, [facility] [address] [id number] [address] [place] [address], [place] [address] May, [facility] [address] [id number] [address] [place] [address], [place] [address] May, [facility] [address] [id number] [address] [place] [address], [place] [address] May, [facility] [address] [id number] [address] [place] [address], [place] [address] May, [facility] [address] [id number] [address] [place] [address], [place] [address] May, [facility] [address] [id number] [address] [place] [address], [place] [address] 14 May, 2014 [facility] [address] [id number] [address] [place] [address], [place] [address] 10 May, 2014 [facility] [address] [id number] [address] [place] [address], [place] [address] Apr, [facility] [address] [id number] [address] [place] [address], [place] [address] Apr, [facility] [address] [id number] [address] [place] [address], [place] [address] Apr, [facility] [address] [id number] [address] [place] [address], [place] [address] Apr, [facility] [address] [id number] [address] [place] [address], [place] [address] March, [facility] [address] [id number] [address] [place] [address], [place] [address] March, [facility] [address] [id number] [address] [place] [address], [place] [address] March, [facility] [address] [id number] [address] [place] [address], [place] [address] March, [facility] [address] [id number] [address] [place] [address], [place] [address] March, [facility] [address] [id number] [address] [place] [address], [place] [address] March, [facility] [address] [id number] [address] [place] [address], [place] [address] March, [facility] [address] [id number] [address] [place] [address], [place] [address] Feb, [facility] [address] [id number] [address] [place] [address], [place] [address] Feb, [facility] [address] [place] [id number] Feb, [facility] [address] [id number] [facility] [place] [address] 29 Feb, 2014 [facility] [address] [id number] [facility] [place] [address] Feb, [facility] [address] [id number] [facility] [place] [address] Feb, [facility] [address] [id number] [facility] [place] [address] Jan, [facility] [address] [id number] [facility] [place] [address] Jan, [facility] [address] [id number] [facility] [place] [address] Jan, [facility] [address] [id number] [facility] [place] [address] Jan, [facility] [address] [id number] [address] [place] [address], [place] [address] Jan, [facility] [address] [id number] [address] [place] [address], [place] [address] Jan, [facility] [address] [id number] [address] [place] [address], [place] [address] Jan, [facility] [address] [id number] [facility] [place] [address] Jan, [facility] [address] [id number] [address] [place] [address], [place] [address] Jan, [facility] [address] [id number] [address] [place] [address], [place] [address] Jan, [facility] [address] [id number] [facility] [place] [address] Jan, [facility] [address] [id number] [facility] [place] [address] Jan, [facility] [address] [id number] [address] [place] [address], [place] [address] Jan, [facility] [address] [id number] [facility] [place] [address] 17 Jan, 2014 [facility] [address] [id number] [address] [place] [address], [place] [address] Jan, [facility] [address] [id number] [address] [place] [address], [place] [address] Jan, [facility] [address] [id number] [address] [place] [address], [place] [address] Jan, [facility] [address] [id number] [address] [place] [address], [place] [address] Jan, [facility] [address] [id number] [address] [place] [address], [place] [address] Dec, [facility] [address] [id number] [address] [place] [address], [place] [address] Dec, [facility] [address] [id number] [address] [place] [address], [place] [address] Dec, [facility] [address] [id number] [address] [place] [address], [place] [address] Dec, [facility] [address] [id number] [address] [place] [address], [place] [address] 14 Dec, 2013 [facility] [address] [id number] [address] [place] [address], [place] [address] Dec, [facility] [address] [id number] [address] [place] [address], [place] [address] 07 Dec, 2013 [facility] [address] [id number] [address] [place] [address], [place] [address] 06 Dec, 2013 [facility] [address] [id number] [address] [place] [address], [place] [address] Dec, [facility] [address] [id number] [address] [place] [address], [place] [address] Dec, [facility] [address] [id number] [address] [place] [address], [place] [address] Dec, [facility] [address] [id number] [address] [place] [address], [place] [address] Dec, [facility] [address] [id number] [address] [place] [address], [place] [address] Nov, [facility] [address] [id number] [address] [place] [address], [place] [address] Nov, [facility] [address] [id number] [address] [place] [address], [place] [address] Nov, [facility] [address] [id number] [address] [place] [address], [place] [address] Nov, [facility] [address] [id number] [address] [place] [address], [place] [address] Nov, [facility] [address] [id number] [address] [place] [address], [place] [address] Nov, [facility] [address] [id number] [address] [place] [address], [place] [address] Nov, [facility] [address] [id number] [address] [place] [address], [place] [address] Oct, [facility] [address] [id number] [address] [place] [address], [place] [address] Oct, [facility] [address] [id number] [address] [place] [address], [place] [address] Sep, [facility] [address] [id number] [address] [place] [address], [place] [address] Sep, [facility] [address] [id number] [address] [place] [address], [place] [address] Sep, [facility] [address] [id number] [address] [place] [address], [place] [address] Sep, [facility] [address] [id number] [address] [place] [address], [place] [address] Aug, [facility] [address] [id number] [address] [place] [address], [place] [address] Aug, [facility] [address] [id number] [address] [place] [address], [place] [address] Aug, [facility] [address] [id number] [address] [place] [address], [place] [address] Jul, [facility] [address] [id number] [address] [place] [address], [place] [address] Jul, [facility] [address] [id number] [address] [place] [address], [place] [address] Jun, [facility] [address] [id number] [address] [place] [address], [place] [address] Jun, [facility] [address] [id number] [address] [place] [address], [place] [address] Jun, [facility] [address] [id number] [address] [place] [address], [place] [address] May, [facility] [address] [id number] [address] [place] [address], [place] [address] May, [facility] [address] [id number] [address] [place] [address], [place] [address] May, [facility] [address] [id number] [address] [place] [address], [place] [address] Apr, [facility] [address] [id number] [address] [place] [address], [place] [address] Apr, [facility] [address] [id number] [address] [place] [address], [place] [address] March, [facility] [address] [id number] [address] [place] [address], [place] [address] Feb, [facility] [address] [id number] [address] [place] [address], [place] [address] Jan, [facility] [address] [id number] [address] [place] [address], [place] [address] Jan, [facility] [address] [id number] [address] [place] [address], [place] [address] Dec, [facility] [address] [id number] [address] [place] [address], [place] [address] Nov, [facility] [address] [id number] [address] [place] [address], [place] [address] Oct, [facility] [address] [id number] [address] [place] [address], [place] [address] Oct, [facility] [address] [id number] [address] [place] [address], [place] [address] Sep, [facility] [address] [id number] [address] [place] [address], [place] [address] Sep, [facility] [address] [id number] [address] [place] [address], [place] [address] Sep, [facility] [address] [id number] [address] [place] [address], [place] [address] Sep, [facility] [address] [id number] [address] [place] [address], [place] [address] Sep, [facility] [address] [id number] [address] [place] [address], [place] [address] Sep, [facility] [address] [id number] [address] [place] [address], [place] [address] Sep, [facility] [address] [id number] [address] [place] [address], [place] [address] Sep, [facility] [address] [id number] [address] [place] [address], [place] [address] Jul, [facility] [address] [id number] [address] [place] [address], [place] [address] Jun, [facility] [address] [id number] [address] [place] [address], [place] [address] Jun, [facility] [address] [id number] [address] [place] [address], [place] [address] Jun, [facility] [address] [id number] [address] [place] [address], [place] [address] Jun, [facility] [address] [id number] [address] [place] [address], [place] [address] May, [facility] [address] [id number] [address] [place] [address], [place] [address] Apr, [facility] [address] [id number] [address] [place] [address], [place] [address] Jan, [facility] [address] [id number] [address] [place] [address], [place] [address] Dec, [facility] [address] [id number] [address] [place] [address], [place] [address] Dec, [facility] [address] [id number] [address] [place] [address], [place] [address] Nov, [facility] [address] [id number] [address] [place] [address], [place] [address] Oct, [facility] [address] [id number] [address] [place] [address], [place] [address] Oct, [facility] [address] [id number] [address] [place] [address], [place] [address] 18 Aug, 2011 [facility] [address] [id number] [address] [place] [address], [place] [address] 18 Aug, 2011 [facility] [address] [id number] [address] [place] [address], [place] [address] 18 Aug, 2011 [facility] [address] [id number] [address] [place] [address], [place] [address] 14 Aug, 2011 [facility] [address] [id number] [address] [place] [address], [place] [address] 11 Aug, 2011 [facility] [address] [id number] [address] [place] [address] [place] [address] 11 Aug, 2011 [facility] [address] [id number] [address] [place] [address], [place] [address] 19 May, 2011 [facility] [address] [id number] [address] [place] [address], [place] [address] 13 Apr, 2011 [facility] [address] [id number] [address] [place] [address], [place] [address] 18 Feb, 2011 [facility] [address] [id number] [address] [place] [address], [place] [address] 28 Oct, 2010 [facility] [address] [id number] [address] [place] [address], [place] [address] Oct, [facility] [address] [id number] [address] [place] [address], [place] [address] 07 Oct, 2010 [facility] [address] [id number] [address] [place] [address], [place] [address] Sep, [facility] [address] [id number] [address] [place] [address], [place] [address] 26 Aug, 2010 [facility] [address] [id number] [address] [place] [address], [place] [address] 16 Jul, 2010 [facility] [address] [id number] [address] [place] [address], [place] [id number] 13 May, 2010 [facility] [address] [id number] [address] [place] [address], [place] [id number] Dec, [facility] [address] [id number] [address] [place] [address], [place] [id number] Nov, [facility] [address] [id number] [address] [place] [address], [place] [id number] 14 Oct, 2009 [facility] [address] [id number] [address] [place] [address], [place] [address] Sep, [facility] [address] [id number] [address] [place] [address], [place] [id number] 05 Sep, 2009 [facility] [place] [address] [facility] [id number] [address] [place] [id number] 14 Jul, 2009 [facility] [place] [address] [facility] [id number] [address] [place] [id number] Jun, [facility] [place] [address] [facility] [id number] [address] [place] [id number] May, IMMUNIZATIONS No Known Immunizations SOCIAL HISTORY Never Assessed REASON FOR VISIT Pain management (chronic) Shahid KIMBROUGH PLAN OF CARE Activity Details Follow Up 3 Months Reason: Pending Test BMP Future/Pending Procedure ROUTINE VENIPUNCTURE VITAL SIGNS Height 73 in 2018-08-21 Weight 222.7 lbs 2018-08-21 Temperature 97.5 degrees Fahrenheit 2018-08-21 Heart Rate 82 bpm 2018-08-21 Respiratory Rate 18 2018-08-21 BMI 29.38 kg/m2 2018-08-21 Blood pressure systolic 114 mmHg 2018-08-21 Blood pressure diastolic 92 mmHg 2018-08-21 MEDICATIONS Medication Instructions Dosage Frequency Start Date End Date Duration S tatus Furosemide 20 mg Orally Once a day 1 tablet 24h 30 d ays Active Nisoldipine ER 34 MG 1 TABLET BY ORAL ROUTE 1 TIME PER DAY Active Klor-Con 10 10 MEQ Orally Once a day 1 tablet with food 24h Nov, Active Lyrica 100 mg Orally Three times a day 1 capsule 8h Nov, Active RESULTS No Results PROCEDURES Procedure Date Ordered Result Body Site LAB NOT BILLED BY [facility] Aug 21, 2018 VENIPUNCT, ROUTINE* Aug 21, 2018 [facility] VISIT ESTABLISHED PATIENT Aug 21, 2018 INSTRUCTIONS MEDICATIONS ADMINISTERED No Known Medications [...]
--- OUTSIDE RECORDS SUMMARY | 2020-06-11 21:02 | XMS REPORT ---
Author Author Jd ROBLEDO Organization [facility] Address [address] [place] [address] Care Team Providers Care Production Support Engineer Name Role Phone PAULA ROBLEDO Unavailable PROBLEMS Type Condition ICD9-CM Code [id number] Code Onset Dates Condition S tatus SNOMED Code Problem Raynauds disease I73.00 Active 195 673585 Problem Neuropathy G62.9 Active 983460829 Problem Dysthymia F34.1 Active 44882341 Problem Other chronic pain G89.29 Active 8 5383398 Problem Venous insufficiency I87.2 Active 80440036 Problem Congenital deafness H90.5 Active 10274137 Problem Low back pain M54.5 Active 142734 009 ALLERGIES No Known Allergies ENCOUNTERS Encounter Location Date Diagnosis [place] [id number] [place] [id number] [place] [address] May, Medicare annual wellness vis it, initial Z00.00 ; Dysthymia F34.1 ; Raynauds disease I73.00 ; Venous insufficiency I87.2 ; Congenital deafness H90.5 and Neuropathy G62.9 [place] [address] [place] [id number] [place] [address] Apr, [place] [address] [place] [id number] [place] [address] Apr, Prediabetes R73.03 ; Raynaud s disease I73.00 ; Venous insufficiency I87.2 ; Neuropathy G62.9 and Dysthymia F34.1 [facility] [address] [place] [id number] [place] [address] March, [place] [address] [place] [id number] [place] [address] Sep, Hyperglycemia R73.9 [place] [address] [address] 07 Sep, 2017 Hyperglycemia R73.9 [place] [address] [address] Sep, Raynauds disease I73.00 ; Ve nous insufficiency I87.2 and Encounter for immunization Z23 [place] [address] [address] Jun, [facility] [address] [address] May, [place] [address] [address] May, Other chronic pain G89.29 [place] [address] [address] May, Raynauds disease I73.00 ; Ve nous insufficiency I87.2 and Low back pain M54.5 [place] [address] [address] Dec, Raynauds disease I73.00 ; Ve nous insufficiency I87.2 ; Low back pain M54.5 and Other chronic pain G89.29 [place] [address] [address] Nov, [facility] [address] [address] Nov, Muscle spasm M62.838 [facility] [address] [address] Nov, [place] [address] [address] Oct, Folliculitis L73.9 and Venou s insufficiency I87.2 [place] [address] [address] Sep, Dermatitis L30.9 and Raynaud s disease I73.00 [facility] [address] [id number] [address] [place] [address] Sep, Rash and nonspecific skin er uption R21 [facility] [address] [id number] [address] [place] [address] Aug, Skin infection L08.9 [facility] [address] [facility] [id number] [address] [place] [address] May, Infected smith L08.9 [facility] [address] [facility] [id number] [address] [place] [address] May, Skin infection L08.9 [facility] [address] [facility] [id number] [address] [place] [address] Dec, [facility] [address] [facility] [id number] [address] [place] [address] Nov, [facility] [address] [facility] [id number] [address] [place] [address] Nov, [facility] [address] [facility] [id number] [address] [place] [address] Nov, Raynauds disease I73.00 [facility] [address] [facility] [id number] [address] [place] [address] Nov, Raynauds disease I73.00 ; Le g cramps R25.2 ; Venous insufficiency I87.2 and Routine adult health maintenance Z00.00 [facility] [address] [facility] [id number] [address] [place] [address] Jul, Infected sebaceous cyst 706. 2 [facility] [address] [facility] [id number] [address] [place] [address] Jun, [facility] [address] [facility] [id number] [address] [place] [address] Jun, [facility] [address] [facility] [id number] [address] [place] [address] Jun, Venous insufficiency 459.81 and Raynauds disease 443.0 [facility] [address] [id number] [address] [place] [address] Feb, [facility] [address] [id number] [address] [place] [address] Feb, [facility] [address] [id number] [address] [place] [address] Jan, [facility] [address] [id number] [address] [place] [address] Jan, [facility] [address] [id number] [address] [place] [address] Dec, [facility] [address] [id number] [address] [place] [address] Dec, [facility] [address] [id number] [address] [place] [address] Dec, [facility] [address] [id number] [address] [place] [address] Dec, [facility] [address] [id number] [address] [place] [address] Nov, [facility] [address] [id number] [address] [place] [address] Nov, [facility] [address] [id number] [address] [place] [address] Oct, [facility] [address] [id number] [address] [place] [address] Oct, [facility] [address] [id number] [address] [place] [address] Aug, [facility] [address] [id number] [address] [place] [address] Aug, [facility] [address] [id number] [address] [place] [address] Aug, [facility] [address] [id number] [address] [place] [address], [place] [address] Jul, [facility] [address] [id number] [address] [place] [address], [place] [address] Jul, [facility] [address] [id number] [address] [place] [address], [place] [address] Jul, [facility] [address] [id number] [address] [place] [address], [place] [address] Jul, [facility] [address] [id number] [address] [place] [address], [place] [address] Jun, [facility] [address] [id number] [address] [place] [address], [place] [address] Jun, [facility] [address] [id number] [address] [place] [address], [place] [address] Jun, [facility] [address] [id number] [address] [place] [address], [place] [address] Jun, [facility] [address] [id number] [address] [place] [address], [place] [address] May, [facility] [address] [id number] [address] [place] [address], [place] [address] May, [facility] [address] [id number] [address] [place] [address], [place] [address] May, [facility] [address] [id number] [address] [place] [address], [place] [address] May, [facility] [address] [id number] [address] [place] [address], [place] [address] May, [facility] [address] [id number] [address] [place] [address], [place] [address] May, [facility] [address] [id number] [address] [place] [address], [place] [address] May, [facility] [address] [id number] [address] [place] [address], [place] [address] Apr, [facility] [address] [id number] [address] [place] [address], [place] [address] Apr, [facility] [address] [id number] [address] [place] [address], [place] [address] Apr, [facility] [address] [id number] [address] [place] [address], [place] [address] Apr, [facility] [address] [id number] [address] [place] [address], [place] [address] March, [facility] [address] [id number] [address] [place] [address], [place] [address] March, [facility] [address] [id number] [address] [place] [address], [place] [address] March, [facility] [address] [id number] [address] [place] [address], [place] [address] March, [facility] [address] [id number] [address] [place] [address], [place] [address] March, [facility] [address] [id number] [address] [place] [address], [place] [address] March, [facility] [address] [id number] [address] [place] [address], [place] [address] March, [facility] [address] [id number] [address] [place] [address], [place] [address] Feb, [facility] [address] [id number] [address] [place] [address], [place] [address] Feb, [facility] [address] [place] [id number] Feb, [facility] [address] [id number] [address] [place] [address], [place] [address] Feb, [facility] [address] [id number] [address] [place] [address], [place] [address] Feb, [facility] [address] [id number] [facility] [address] Feb, [facility] [address] [id number] [facility] [address] Jan, [facility] [address] [id number] [facility] [address] Jan, [facility] [address] [id number] [facility] [address] Jan, [facility] [address] [id number] [facility] [address] Jan, [facility] [address] [id number] [facility] [address] Jan, [facility] [address] [id number] [facility] [address] Jan, [facility] [address] [id number] [facility] [address] Jan, [facility] [address] [id number] [facility] [address] Jan, [facility] [address] [id number] [address] [place] [address], [place] [address] Jan, [facility] [address] [id number] [facility] [address] Jan, [facility] [address] [id number] [facility] [address] Jan, [facility] [address] [id number] [facility] [address] Jan, [facility] [address] [id number] [facility] [address] 17 Jan, 2014 [facility] [address] [id number] [facility] [address] Jan, [facility] [address] [id number] [facility] [address] 10 Jan, 2014 [facility] [address] [id number] [facility] [address] 10 Jan, 2014 [facility] [address] [id number] [address] [place] [address], [place] [address] Jan, [facility] [address] [id number] [facility] [address] Jan, [facility] [address] [id number] [address] [place] [address], [place] [address] Dec, [facility] [address] [id number] [address] [place] [address], [place] [address] Dec, [facility] [address] [id number] [address] [place] [address], [place] [address] Dec, [facility] [address] [id number] [address] [place] [address], [place] [address] Dec, [facility] [address] [id number] [address] [place] [address], [place] [address] 14 Dec, 2013 [facility] [address] [id number] [address] [place] [address], [place] [address] 07 Dec, 2013 [facility] [address] [id number] [address] [place] [address], [place] [address] 07 Dec, 2013 [facility] [address] [id number] [address] [place] [address], [place] [address] 06 Dec, 2013 [facility] [address] [id number] [address] [place] [address], [place] [address] 04 Dec, 2013 [facility] [address] [id number] [address] [place] [address], [place] [address] 04 Dec, 2013 [facility] [address] [id number] [address] [place] [address], [place] [address] 04 Dec, 2013 [facility] [address] [id number] [address] [place] [address], [place] [address] 04 Dec, 2013 [facility] [address] [id number] [address] [place] [address], [place] [address] Nov, [facility] [address] [id number] [address] [place] [address], [place] [address] Nov, [facility] [address] [id number] [address] [place] [address], [place] [address] Nov, [facility] [address] [id number] [address] [place] [address], [place] [address] Nov, [facility] [address] [id number] [address] [place] [address], [place] [address] Nov, [facility] [address] [id number] [address] [place] [address], [place] [address] Nov, [facility] [address] [id number] [address] [place] [address], [place] [address] Nov, [facility] [address] [id number] [address] [place] [address], [place] [address] Oct, [facility] [address] [id number] [address] [place] [address], [place] [address] Oct, [facility] [address] [id number] [address] [place] [address], [place] [address] Sep, [facility] [address] [id number] [address] [place] [address], [place] [address] Sep, [facility] [address] [id number] [address] [place] [address], [place] [address] Sep, [facility] [address] [id number] [address] [place] [address], [place] [address] Sep, [facility] [address] [id number] [address] [place] [address], [place] [address] Aug, [facility] [address] [id number] [address] [place] [address], [place] [address] Aug, [facility] [address] [id number] [address] [place] [address], [place] [address] Aug, [facility] [address] [id number] [address] [place] [address], [place] [address] Jul, [facility] [address] [id number] [address] [place] [address], [place] [address] Jul, [facility] [address] [id number] [address] [place] [address], [place] [address] Jun, [facility] [address] [id number] [address] [place] [address], [place] [address] Jun, [facility] [address] [id number] [address] [place] [address], [place] [address] Jun, [facility] [address] [id number] [address] [place] [address], [place] [address] May, [facility] [address] [id number] [address] [place] [address], [place] [address] May, [facility] [address] [id number] [address] [place] [address], [place] [address] May, [facility] [address] [id number] [address] [place] [address], [place] [address] Apr, [facility] [address] [id number] [address] [place] [address], [place] [address] Apr, [facility] [address] [id number] [address] [place] [address], [place] [address] March, [facility] [address] [id number] [address] [place] [address], [place] [address] Feb, [facility] [address] [id number] [address] [place] [address], [place] [address] Jan, [facility] [address] [id number] [address] [place] [address], [place] [address] Jan, [facility] [address] [id number] [address] [place] [address], [place] [address] Dec, [facility] [address] [id number] [address] [place] [address], [place] [address] Nov, [facility] [address] [id number] [address] [place] [address], [place] [address] Oct, [facility] [address] [id number] [address] [place] [address], [place] [address] Oct, [facility] [address] [id number] [address] [place] [address], [place] [address] Sep, [facility] [address] [id number] [address] [place] [address], [place] [address] Sep, [facility] [address] [id number] [address] [place] [address], [place] [address] Sep, [facility] [address] [id number] [address] [place] [address], [place] [address] Sep, [facility] [address] [id number] [address] [place] [address], [place] [address] Sep, [facility] [address] [id number] [address] [place] [address], [place] [address] Sep, [facility] [address] [id number] [address] [place] [address], [place] [address] Sep, [facility] [address] [id number] [address] [place] [address], [place] [address] Sep, [facility] [address] [id number] [address] [place] [address], [place] [address] 04 Jul, 2012 [facility] [address] [id number] [address] [place] [address], [place] [address] Jun, [facility] [address] [id number] [address] [place] [address], [place] [address] Jun, [facility] [address] [id number] [address] [place] [address], [place] [address] 15 Jun, 2012 [facility] [address] [id number] [address] [place] [address], [place] [address] Jun, [facility] [address] [id number] [address] [place] [address], [place] [address] 05 May, 2012 [facility] [address] [id number] [address] [place] [address], [place] [address] Apr, [facility] [address] [id number] [address] [place] [address], [place] [address] Jan, [facility] [address] [id number] [address] [place] [address], [place] [address] Dec, [facility] [address] [id number] [address] [place] [address], [place] [address] Dec, [facility] [address] [id number] [address] [place] [address], [place] [address] Nov, [facility] [address] [id number] [address] [place] [address], [place] [address] Oct, [facility] [address] [id number] [address] [place] [address], [place] [address] 19 Oct, 2011 [facility] [address] [id number] [address] [place] [address], [place] [address] 18 Aug, 2011 [facility] [address] [id number] [address] [place] [address] 18 Aug, 2011 [facility] [address] [id number] [address] [place] [address], [place] [address] 18 Aug, 2011 [facility] [address] [id number] [address] [place] [address] 14 Aug, 2011 [facility] [address] [id number] [address] [place] [address], [place] [address] 11 Aug, 2011 [facility] [address] [id number] [address] [place] [address], [place] [address] 11 Aug, 2011 [facility] [address] [id number] [address] [place] [address], [place] [address] 19 May, 2011 [facility] [address] [id number] [address] [place] [address], [place] [address] 13 Apr, 2011 [facility] [address] [id number] [address] [place] [address], [place] [address] 18 Feb, 2011 [facility] [address] [id number] [address] [place] [address], [place] [address] 28 Oct, 2010 [facility] [address] [id number] [address] [place] [address], [place] [address] 21 Oct, 2010 [facility] [address] [id number] [address] [place] [address], [place] [address] 07 Oct, 2010 [facility] [address] [id number] [address] [place] [address], [place] [address] 09 Sep, 2010 [facility] [address] [id number] [address] [place] [address], [place] [address] 26 Aug, 2010 [facility] [address] [id number] [address] [place] [address], [place] [address] 16 Jul, 2010 [facility] [address] [id number] [address] [place] [address], [place] [address] 13 May, 2010 [facility] [address] [id number] [address] [place] [address], [place] [address] 19 Dec, 2009 [facility] [address] [id number] [address] [place] [address], [place] [address] Nov, [facility] [address] [id number] [address] [place] [address], [place] [address] 14 Oct, 2009 [facility] [address] [id number] [address] [place] [address], [place] [address] 27 Sep, 2009 [facility] [address] [id number] [address] [place] [address], [place] [address] 05 Sep, 2009 [facility] [address] [id number] [address] [place] [address], [place] [address] 14 Jul, 2009 [facility] [address] [id number] [address] [place] [address], [place] [address] 17 Jun, 2009 [facility] [address] [facility] [id number] [address] [place] [address] May, IMMUNIZATIONS No Known Immunizations SOCIAL HISTORY Never Assessed REASON FOR VISIT Pain management (chronic) -Dano KIMBROUGH , PT needs refills on medication due to e carlos Abarca PLAN OF CARE Activity Details Follow Up 3 Months Reason: VITAL SIGNS Height 73 in 2018-05-04 Weight 217.3 lbs 2018-05-04 Temperature 97.7 degrees Fahrenheit 2018-05-04 Heart Rate 90 bpm 2018-05-04 Respiratory Rate 20 2018-05-04 Oximetry on room air:96 % 2018-05-04 BMI 28.67 kg/m2 2018-05-04 Blood pressure systolic 128 mmHg 2018-05-04 Blood pressure diastolic 72 mmHg 2018-05-04 MEDICATIONS Medication Instructions Dosage Frequency Start Date End Date Duration S tatus Klor-Con 10 10 MEQ Orally Once a day 1 tablet with food 24h Nov, Active Baclofen 10 TAKE 1 TABLET BY MOUTH THREE TIMES DAILY NEEDED 6 Active Furosemide 20 mg Orally Once a day 1 tablet 24h 30 d ays Active Nisoldipine ER 34 MG 1 TABLET BY ORAL ROUTE 1 TIME PER DAY Active Lexapro 10 mg take 1 tablet by Ora l route 1 time per day (with the 20 mg for total 30 mg dose) March, Active Lyrica 100 mg Orally Three times a day 1 capsule 8h Nov, Active Potassium & Magnesium Aspartat 250-250 MG Orally Once a day 1 capsule with a meal 24h Active RESULTS No Results PROCEDURES Procedure Date Ordered Result Body Site GLYCATED HEMOGLOBIN TEST May 04, 2018 LAB NOT BILLED BY [facility] May 04, 2018 [facility] VISIT ESTABLISHED PATIENT May 04, 2018 INSTRUCTIONS MEDICATIONS ADMINISTERED No Known Medications [...]
--- OUTSIDE RECORDS SUMMARY | 2020-06-11 21:02 | XMS REPORT ---
Author Author Jd Fagan r Organization [facility] Address Unknown Phone Unavailable Care Team Providers Care Operations Consultant Name Role Phone Migration, Doctor Unavailable Unavailable PROBLEMS Type Condition ICD9-CM Code [id number] Code Onset Dates Condition S tatus SNOMED Code Problem Raynauds disease I73.00 Active 195 219698 Problem Venous insufficiency I87.2 Active 00944423 Problem Neuropathy G62.9 Active 268792480 Problem Hypokalemia E87.6 Active 96064742 Problem Other chronic pain G89.29 Active 8 3567742 Problem Low back pain M54.5 Active 640308 009 Problem Congenital deafness H90.5 Active 12888088 Problem Dysthymia F34.1 Active 23430131 ALLERGIES No Information ENCOUNTERS Encounter Location Date Diagnosis [place] [address] [place] [id number] [place] [address] Jan, [place] [address] [place] [id number] [place] [address] Oct, Neuropathy G62.9 ; Low back pain M54.5 and URI (upper respiratory infection) J06.9 [place] [address] [place] [id number] [place] [address] Jul, Raynauds disease I73.00 and Hypokalemia E87.6 [place] [address] [place] [id number] [place] [address] 05 May, 2018 Medicare annual wellness vis it, initial Z00.00 ; Dysthymia F34.1 ; Raynauds disease I73.00 ; Venous insufficiency I87.2 ; Congenital deafness H90.5 and Neuropathy G62.9 [place] [address] [place] [id number] [place] [address] Apr, [place] [address] [place] [id number] [place] [address] Apr, Prediabetes R73.03 ; Raynaud s disease I73.00 ; Venous insufficiency I87.2 ; Neuropathy G62.9 and Dysthymia F34.1 [facility] [address] [facility] [id number] [address] [place] [address] March, [facility] [address] [facility] [id number] [address] [place] [address] Sep, Hyperglycemia R73.9 [facility] [address] [facility] [id number] [address] [place] [address] Sep, Hyperglycemia R73.9 [place] [address] [place] [id number] [place] [address] Sep, Raynauds disease I73.00 ; Ve nous insufficiency I87.2 and Encounter for immunization Z23 [place] [address] [place] [id number] [place] [address] Jun, [place] [address] [facility] [id number] [address] [place] [address] May, [place] [address] [place] [id number] [place] [address] May, Other chronic pain G89.29 [place] [address] [place] [id number] [place] [address] May, Raynauds disease I73.00 ; Ve nous insufficiency I87.2 and Low back pain M54.5 [place] [address] [facility] [id number] [address] [place] [address] Dec, Raynauds disease I73.00 ; Ve nous insufficiency I87.2 ; Low back pain M54.5 and Other chronic pain G89.29 [facility] [address] [facility] [id number] [address] [place] [address] Nov, [place] [address] [place] [id number] [place] [address] Nov, Muscle spasm M62.838 [facility] [address] [facility] [id number] [address] [place] [address] 16 Nov, 2016 [facility] [address] [facility] [id number] [address] [place] [address] Oct, Folliculitis L73.9 and Venou s insufficiency I87.2 [facility] [address] [place] [id number] [place] [address] Sep, Dermatitis L30.9 and Raynaud s disease I73.00 [facility] [address] [facility] [id number] [address] [place] [address] Sep, Rash and nonspecific skin er uption R21 [facility] [address] [facility] [id number] [address] [place] [address] Aug, Skin infection L08.9 [facility] [address] [place] [id number] [place] [address] May, Infected smith L08.9 [facility] [address] [place] [id number] [place] [address] May, Skin infection L08.9 [facility] [address] [place] [id number] [place] [id number] 05 Dec, 2015 [facility] [address] [place] [id number] [place] [address] Nov, [facility] [address] [place] [id number] [place] [address] Nov, [facility] [address] [place] [id number] [place] [address] Nov, Raynauds disease I73.00 [facility] [address] [place] [id number] [place] [address] Nov, Raynauds disease I73.00 ; Le g cramps R25.2 ; Venous insufficiency I87.2 and Routine adult health maintenance Z00.00 [facility] [address] [id number] [address] [place] [address] Jul, Infected sebaceous cyst 706. 2 [facility] [address] [id number] [address] [place] [address] Jun, [facility] [address] [facility] [id number] [address] [place] [address] Jun, [facility] [address] [id number] [address] [place] [address] Jun, Venous insufficiency 459.81 and Raynauds disease 443.0 [facility] [address] [id number] [address] [place] [address] Feb, [facility] [address] [facility] [id number] [address] [place] [address] Feb, [facility] [address] [id number] [address] [place] [address] Jan, [facility] [address] [id number] [address] [place] [address] Jan, [facility] [address] [id number] [address] [place] [phone] Dec, [facility] [address] [facility] [id number] [address] [place] [address] Dec, [facility] [address] [id number] [address] [place] [phone] Dec, [facility] [address] [facility] [id number] [address] [place] [address] Dec, [facility] [address] [id number] [address] [place] [address] Nov, [facility] [address] [id number] [address] [place] [address] Nov, [facility] [address] [id number] [address] [place] [address] Oct, [facility] [address] [id number] [address] [place] [address], [place] [address] Oct, [facility] [address] [id number] [address] [place] [address], [place] [address] Aug, [facility] [address] [id number] [address] [place] [address], [place] [address] Aug, [facility] [address] [id number] [address] [place] [address], [place] [address] Aug, [facility] [address] [id number] [address] [place] [address], [place] [address] Jul, [facility] [address] [id number] [address] [place] [address], [place] [address] Jul, [facility] [address] [id number] [address] [place] [address], [place] [address] Jul, [facility] [address] [id number] [address] [place] [address], [place] [address] Jul, [facility] [address] [id number] [address] [place] [address], [place] [address] Jun, [facility] [address] [id number] [address] [place] [address], [place] [address] Jun, [facility] [address] [id number] [address] [place] [address], [place] [address] Jun, [facility] [address] [id number] [address] [place] [address], [place] [address] Jun, [facility] [address] [id number] [address] [place] [address], [place] [address] May, [facility] [address] [id number] [address] [place] [address], [place] [address] May, [facility] [address] [id number] [address] [place] [address], [place] [address] May, [facility] [address] [id number] [address] [place] [address], [place] [address] 15 May, 2014 [facility] [address] [id number] [address] [place] [address], [place] [address] 14 May, 2014 [facility] [address] [id number] [address] [place] [address], [place] [address] 14 May, 2014 [facility] [address] [id number] [address] [place] [address], [place] [address] May, [facility] [address] [id number] [address] [place] [address], [place] [address] Apr, [facility] [address] [id number] [address] [place] [address], [place] [address] Apr, [facility] [address] [id number] [address] [place] [address], [place] [address] Apr, [facility] [address] [id number] [address] [place] [address], [place] [address] Apr, [facility] [address] [id number] [address] [place] [address], [place] [address] March, [facility] [address] [id number] [address] [place] [address], [place] [address] March, [facility] [address] [id number] [address] [place] [address], [place] [address] March, [facility] [address] [id number] [address] [place] [address], [place] [address] March, [facility] [address] [id number] [address] [place] [address], [place] [address] March, [facility] [address] [id number] [address] [place] [address], [place] [address] March, [facility] [address] [id number] [address] [place] [address], [place] [address] March, [facility] [address] [id number] [address] [place] [address], [place] [address] Feb, [facility] [address] [id number] [address] [place] [address], [place] [address] Feb, [facility] [address] [place] [id number] Feb, [facility] [address] [id number] [facility] [address] Feb, [facility] [address] [id number] [address] [place] [address], [place] [address] Feb, [facility] [address] [id number] [facility] [address] Feb, [facility] [address] [id number] [address] [place] [address], [place] [address] Jan, [facility] [address] [id number] [address] [place] [address], [place] [address] Jan, [facility] [address] [id number] [address] [place] [address], [place] [address] Jan, [facility] [address] [id number] [address] [place] [address], [place] [address] Jan, [facility] [address] [id number] [address] [place] [address], [place] [address] Jan, [facility] [address] [id number] [address] [place] [address], [place] [address] Jan, [facility] [address] [id number] [address] [place] [address], [place] [address] Jan, [facility] [address] [id number] [address] [place] [address], [place] [address] Jan, [facility] [address] [id number] [address] [place] [address], [place] [address] Jan, [facility] [address] [id number] [address] [place] [address], [place] [address] Jan, [facility] [address] [id number] [address] [place] [address], [place] [address] Jan, [facility] [address] [id number] [facility] [place] [address] 17 Jan, 2014 [facility] [address] [id number] [facility] [place] [address] Jan, [facility] [address] [id number] [facility] [place] [address] Jan, [facility] [address] [id number] [address] [place] [address], [place] [address] Jan, [facility] [address] [id number] [address] [place] [address], [place] [address] Jan, [facility] [address] [id number] [address] [place] [address], [place] [address] Jan, [facility] [address] [id number] [address] [place] [address], [place] [address] Jan, [facility] [address] [id number] [address] [place] [address], [place] [address] Dec, [facility] [address] [id number] [address] [place] [address], [place] [address] Dec, [facility] [address] [id number] [address] [place] [address], [place] [address] Dec, [facility] [address] [id number] [address] [place] [address], [place] [address] 17 Dec, 2013 [facility] [address] [id number] [address] [place] [address], [place] [address] 14 Dec, 2013 [facility] [address] [id number] [address] [place] [address], [place] [address] 07 Dec, 2013 [facility] [address] [id number] [address] [place] [address], [place] [address] 07 Dec, 2013 [facility] [address] [id number] [address] [place] [address], [place] [address] 06 Dec, 2013 [facility] [address] [id number] [address] [place] [address], [place] [address] Dec, [facility] [address] [id number] [address] [place] [address], [place] [address] Dec, [facility] [address] [id number] [address] [place] [address], [place] [address] Dec, [facility] [address] [id number] [address] [place] [address], [place] [address] Dec, [facility] [address] [id number] [address] [place] [address], [place] [address] Nov, [facility] [address] [id number] [address] [place] [address], [place] [address] Nov, [facility] [address] [id number] [address] [place] [address], [place] [address] Nov, [facility] [address] [id number] [address] [place] [address], [place] [address] Nov, [facility] [address] [id number] [address] [place] [address], [place] [address] Nov, [facility] [address] [id number] [address] [place] [address], [place] [address] Nov, [facility] [address] [id number] [address] [place] [address], [place] [address] Nov, [facility] [address] [id number] [address] [place] [address], [place] [address] Oct, [facility] [address] [id number] [address] [place] [address], [place] [address] Oct, [facility] [address] [id number] [address] [place] [address], [place] [address] Sep, [facility] [address] [id number] [address] [place] [address], [place] [address] Sep, [facility] [address] [id number] [address] [place] [address], [place] [address] Sep, [facility] [address] [id number] [address] [place] [address], [place] [address] Sep, [facility] [address] [id number] [address] [place] [address], [place] [address] Aug, [facility] [address] [id number] [address] [place] [address], [place] [address] Aug, [facility] [address] [id number] [address] [place] [address], [place] [address] Aug, [facility] [address] [id number] [address] [place] [address], [place] [address] Jul, [facility] [address] [id number] [address] [place] [address], [place] [address] Jul, [facility] [address] [id number] [address] [place] [address], [place] [address] Jun, [facility] [address] [id number] [address] [place] [address], [place] [address] Jun, [facility] [address] [id number] [address] [place] [address], [place] [address] Jun, [facility] [address] [id number] [address] [place] [address], [place] [address] May, [facility] [address] [id number] [address] [place] [address], [place] [address] May, [facility] [address] [id number] [address] [place] [address], [place] [address] May, [facility] [address] [id number] [address] [place] [address], [place] [address] Apr, [facility] [address] [id number] [address] [place] [address], [place] [address] Apr, [facility] [address] [id number] [address] [place] [address], [place] [address] March, [facility] [address] [id number] [address] [place] [address], [place] [address] Feb, [facility] [address] [id number] [address] [place] [address], [place] [address] 22 Jan, 2013 [facility] [address] [id number] [address] [place] [address] [address] 2013 [facility] [address] [id number] [address] [place] [address], [place] [address] 07 Dec, 2012 [facility] [address] [id number] [address] [place] [address], [place] [address] Nov, [facility] [address] [id number] [address] [place] [address], [place] [address] Oct, [facility] [address] [id number] [address] [place] [address], [place] [address] Oct, [facility] [address] [id number] [address] [place] [address], [place] [address] 30 Sep, 2012 [facility] [address] [id number] [address] [place] [address], [place] [address] Sep, [facility] [address] [id number] [address] [place] [address], [place] [address] Sep, [facility] [address] [id number] [address] [place] [address], [place] [address] 28 Sep, 2012 [facility] [address] [id number] [address] [place] [address], [place] [address] Sep, [facility] [address] [id number] [address] [place] [address], [place] [address] Sep, [facility] [address] [id number] [address] [place] [address], [place] [address] Sep, [facility] [address] [id number] [address] [place] [address], [place] [address] Sep, [facility] [address] [id number] [address] [place] [address], [place] [address] Jul, [facility] [address] [id number] [address] [place] [address], [place] [address] Jun, [facility] [address] [id number] [address] [place] [address], [place] [address] Jun, [facility] [address] [id number] [address] [place] [address], [place] [address] Jun, [facility] [address] [id number] [address] [place] [address], [place] [address] Jun, [facility] [address] [id number] [address] [place] [address], [place] [address] May, [facility] [address] [id number] [address] [place] [address], [place] [address] Apr, [facility] [address] [id number] [address] [place] [address], [place] [address] Jan, [facility] [address] [id number] [address] [place] [address], [place] [address] Dec, [facility] [address] [id number] [address] [place] [address], [place] [address] Dec, [facility] [address] [id number] [address] [place] [address], [place] [address] Nov, [facility] [address] [id number] [address] [place] [address], [place] [address] Oct, [facility] [address] [id number] [address] [place] [address], [place] [address] Oct, [facility] [address] [id number] [address] [place] [address], [place] [address] Aug, [facility] [address] [id number] [address] [place] [address], [place] [address] Aug, [facility] [address] [id number] [address] [place] [address], [place] [address] Aug, [facility] [address] [id number] [address] [place] [address] [place] [address] 14 Aug, 2011 [facility] [address] [id number] [address] [place] [address], [place] [address] 11 Aug, 2011 [facility] [address] [id number] [address] [place] [address], [place] [address] 11 Aug, 2011 [facility] [address] [id number] [address] [place] [address], [place] [address] 19 May, 2011 [facility] [address] [id number] [address] [place] [address], [place] [address] 13 Apr, 2011 [facility] [address] [id number] [address] [place] [address], [place] [address] 18 Feb, 2011 [facility] [address] [id number] [address] [place] [address], [place] [address] 28 Oct, 2010 [facility] [address] [id number] [address] [place] [address], [place] [address] 21 Oct, 2010 [facility] [address] [id number] [address] [place] [address], [place] [address] 07 Oct, 2010 [facility] [address] [id number] [address] [place] [address], [place] [address] 09 Sep, 2010 [facility] [address] [id number] [address] [place] [address], [place] [address] 26 Aug, 2010 [facility] [address] [id number] [address] [place] [address], [place] [address] 16 Jul, 2010 [facility] [address] [id number] [address] [place] [address], [place] [address] 13 May, 2010 [facility] [address] [id number] [address] [place] [address], [place] [address] 19 Dec, 2009 [facility] [address] [id number] [address] [place] [address], [place] [address] 19 Nov, 2009 [facility] [address] [id number] [address] [place] [address], [place] [address] 14 Oct, 2009 [facility] [address] [facility] [id number] [address] [place] [address] Sep, [facility] [address] [facility] [id number] [address] [place] [address] Sep, [facility] [address] [facility] [id number] [address] [place] [address] Jul, [facility] [address] [facility] [id number] [address] [place] [address] Jun, [facility] [address] [facility] [id number] [address] [place] [address] May, IMMUNIZATIONS No Known Immunizations SOCIAL HISTORY Never Assessed REASON FOR VISIT [facility] PLAN OF CARE VITAL SIGNS MEDICATIONS Unknown [...]
--- OUTSIDE RECORDS SUMMARY | 2020-06-11 21:02 | XMS REPORT ---
Author Author Jd ROBLEDO Organization [facility] Address [address] [place] [address] Care Team Providers Care Neurology Tech Name Role Phone PAULA ROBLEDO Unavailable PROBLEMS Type Condition ICD9-CM Code [id number] Code Onset Dates Condition S tatus SNOMED Code Problem Raynauds disease I73.00 Active 195 159046 Problem Neuropathy G62.9 Active 810337005 Problem Dysthymia F34.1 Active 02976569 Problem Other chronic pain G89.29 Active 8 7945730 Problem Venous insufficiency I87.2 Active 45315121 Problem Congenital deafness H90.5 Active 08099261 Problem Low back pain M54.5 Active 001630 009 ALLERGIES No Information ENCOUNTERS Encounter Location Date Diagnosis [place] [id number] [place] [id number] [place] [address] May, Medicare annual wellness vis it, initial Z00.00 ; Dysthymia F34.1 ; Raynauds disease I73.00 ; Venous insufficiency I87.2 ; Congenital deafness H90.5 and Neuropathy G62.9 [place] [address] [place] [id number] [place] [address] Apr, [place] [address] [place] [id number] [address] [place] [address] Apr, Prediabetes R73.03 ; Raynaud s disease I73.00 ; Venous insufficiency I87.2 ; Neuropathy G62.9 and Dysthymia F34.1 [place] [address] [place] [id number] [place] [address] March, [facility] [address] [place] [id number] [place] [address] Sep, Hyperglycemia R73.9 [place] [address] [address] 07 Sep, 2017 Hyperglycemia R73.9 [place] [address] [address] Sep, Raynauds disease I73.00 ; Ve nous insufficiency I87.2 and Encounter for immunization Z23 [place] [address] [address] Jun, [facility] [address] [address] May, [place] [address] [address] May, Other chronic pain G89.29 [place] [address] [address] May, Raynauds disease I73.00 ; Ve nous insufficiency I87.2 and Low back pain M54.5 [place] [address] [address] Dec, Raynauds disease I73.00 ; Ve nous insufficiency I87.2 ; Low back pain M54.5 and Other chronic pain G89.29 [place] [address] [address] Nov, [facility] [address] [address] Nov, Muscle spasm M62.838 [facility] [address] [address] Nov, [place] [address] [address] Oct, Folliculitis L73.9 and Venou s insufficiency I87.2 [place] [address] [address] 17 Nov, 2016 Dermatitis L30.9 and Raynaud s disease I73.00 [facility] [address] [id number] [address] [place] [address] Sep, Rash and nonspecific skin er uption R21 [facility] [address] [id number] [address] [place] [address] Aug, Skin infection L08.9 [facility] [address] [facility] [id number] [address] [place] [address] May, Infected smith L08.9 [facility] [address] [id number] [address] [place] [address] May, Skin infection L08.9 [facility] [address] [facility] [id number] [address] [place] [address] Dec, [facility] [address] [facility] [id number] [address] [place] [address] Nov, [facility] [address] [facility] [id number] [address] [place] [address] Nov, [facility] [address] [facility] [id number] [address] [place] [address] Nov, Raynauds disease I73.00 [facility] [address] [facility] [id number] [address] [place] [address] Nov, Raynauds disease I73.00 ; Le g cramps R25.2 ; Venous insufficiency I87.2 and Routine adult health maintenance Z00.00 [facility] [address] [id number] [address] [place] [address] Jul, Infected sebaceous cyst 706. 2 [facility] [address] [facility] [id number] [address] [place] [address] Jun, [facility] [address] [facility] [id number] [address] [place] [address] Jun, [facility] [address] [facility] [id number] [address] [place] [address] Jun, Venous insufficiency 459.81 and Raynauds disease 443.0 [facility] [address] [id number] [address] [place] [address] Feb, [facility] [address] [id number] [address] [place] [address] Feb, [facility] [address] [id number] [address] [place] [address] Jan, [facility] [address] [id number] [address] [place] [address] Jan, [facility] [address] [id number] [address] [place] [address] Dec, [facility] [address] [id number] [address] [place] [address] Dec, [facility] [address] [id number] [address] [place] [address] Dec, [facility] [address] [id number] [address] [place] [address] Dec, [facility] [address] [id number] [address] [place] [address] Nov, [facility] [address] [id number] [address] [place] [address] Nov, [facility] [address] [id number] [address] [place] [address] Oct, [facility] [address] [id number] [address] [place] [address] Oct, [facility] [address] [id number] [address] [place] [address] Aug, [facility] [address] [id number] [address] [place] [address] Aug, [facility] [address] [id number] [address] [place] [address] Aug, [facility] [address] [id number] [facility] [place] [address] Jul, [facility] [address] [id number] [address] [place] [address], [place] [address] Jul, [facility] [address] [id number] [address] [place] [address], [place] [address] Jul, [facility] [address] [id number] [address] [place] [address], [place] [address] Jul, [facility] [address] [id number] [address] [place] [address], [place] [address] Jun, [facility] [address] [id number] [address] [place] [address], [place] [address] Jun, [facility] [address] [id number] [address] [place] [address], [place] [address] Jun, [facility] [address] [id number] [address] [place] [address], [place] [address] Jun, [facility] [address] [id number] [address] [place] [address], [place] [address] May, [facility] [address] [id number] [address] [place] [address], [place] [address] May, [facility] [address] [id number] [address] [place] [address], [place] [address] May, [facility] [address] [id number] [address] [place] [address], [place] [address] May, [facility] [address] [id number] [address] [place] [address], [place] [address] May, [facility] [address] [id number] [address] [place] [address], [place] [address] May, [facility] [address] [id number] [address] [place] [address], [place] [address] May, [facility] [address] [id number] [address] [place] [address], [place] [address] Apr, [facility] [address] [id number] [address] [place] [address], [place] [address] Apr, [facility] [address] [id number] [address] [place] [address], [place] [address] Apr, [facility] [address] [id number] [address] [place] [address], [place] [address] Apr, [facility] [address] [id number] [address] [place] [address], [place] [address] March, [facility] [address] [id number] [address] [place] [address], [place] [address] March, [facility] [address] [id number] [address] [place] [address], [place] [address] March, [facility] [address] [id number] [address] [place] [address], [place] [address] March, [facility] [address] [id number] [address] [place] [address], [place] [address] March, [facility] [address] [id number] [address] [place] [address], [place] [address] March, [facility] [address] [id number] [address] [place] [address], [place] [address] March, [facility] [address] [id number] [address] [place] [address], [place] [address] Feb, [facility] [address] [id number] [address] [place] [address], [place] [address] Feb, [facility] [address] [place] [id number] Feb, [facility] [address] [id number] [address] [place] [address], [place] [address] Feb, [facility] [address] [id number] [address] [place] [address], [place] [address] Feb, [facility] [address] [id number] [facility] [place] [address] Feb, [facility] [address] [id number] [facility] [place] [address] Jan, [facility] [address] [id number] [facility] [place] [address] Jan, [facility] [address] [id number] [facility] [place] [address] Jan, [facility] [address] [id number] [facility] [place] [address] Jan, [facility] [address] [id number] [facility] [place] [address] Jan, [facility] [address] [id number] [facility] [place] [address] Jan, [facility] [address] [id number] [address] [place] [address], [place] [address] Jan, [facility] [address] [id number] [facility] [place] [address] Jan, [facility] [address] [id number] [address] [place] [address], [place] [address] Jan, [facility] [address] [id number] [facility] [place] [address] Jan, [facility] [address] [id number] [facility] [place] [address] Jan, [facility] [address] [id number] [facility] [place] [address] Jan, [facility] [address] [id number] [facility] [place] [address] Jan, [facility] [address] [id number] [facility] [place] [address] Jan, [facility] [address] [id number] [address] [place] [address], [place] [address] Jan, [facility] [address] [id number] [facility] [place] [address] 10 Jan, 2014 [facility] [address] [id number] [address] [place] [address], [place] [address] Jan, [facility] [address] [id number] [address] [place] [address], [place] [address] Jan, [facility] [address] [id number] [address] [place] [address], [place] [address] Dec, [facility] [address] [id number] [address] [place] [address], [place] [address] Dec, [facility] [address] [id number] [address] [place] [address], [place] [address] Dec, [facility] [address] [id number] [address] [place] [address], [place] [address] Dec, [facility] [address] [id number] [address] [place] [address], [place] [address] 14 Dec, 2013 [facility] [address] [id number] [address] [place] [address], [place] [address] 07 Dec, 2013 [facility] [address] [id number] [address] [place] [address], [place] [address] 07 Dec, 2013 [facility] [address] [id number] [address] [place] [address], [place] [address] 06 Dec, 2013 [facility] [address] [id number] [address] [place] [address], [place] [address] 04 Dec, 2013 [facility] [address] [id number] [address] [place] [address], [place] [address] 04 Dec, 2013 [facility] [address] [id number] [address] [place] [address], [place] [address] 04 Dec, 2013 [facility] [address] [id number] [address] [place] [address], [place] [address] 04 Dec, 2013 [facility] [address] [id number] [address] [place] [address], [place] [address] Nov, [facility] [address] [id number] [address] [place] [address], [place] [address] Nov, [facility] [address] [id number] [address] [place] [address], [place] [address] Nov, [facility] [address] [id number] [address] [place] [address], [place] [address] Nov, [facility] [address] [id number] [address] [place] [address], [place] [address] Nov, [facility] [address] [id number] [address] [place] [address], [place] [address] Nov, [facility] [address] [id number] [address] [place] [address], [place] [address] Nov, [facility] [address] [id number] [address] [place] [address], [place] [address] Oct, [facility] [address] [id number] [address] [place] [address], [place] [address] Oct, [facility] [address] [id number] [address] [place] [address], [place] [address] Sep, [facility] [address] [id number] [address] [place] [address], [place] [address] Sep, [facility] [address] [id number] [address] [place] [address], [place] [address] Sep, [facility] [address] [id number] [address] [place] [address], [place] [address] Sep, [facility] [address] [id number] [address] [place] [address], [place] [address] Aug, [facility] [address] [id number] [address] [place] [address], [place] [address] Aug, [facility] [address] [id number] [address] [place] [address], [place] [address] Aug, [facility] [address] [id number] [address] [place] [address], [place] [address] Jul, [facility] [address] [id number] [address] [place] [address], [place] [address] Jul, [facility] [address] [id number] [address] [place] [address], [place] [address] Jun, [facility] [address] [id number] [address] [place] [address], [place] [address] Jun, [facility] [address] [id number] [address] [place] [address], [place] [address] Jun, [facility] [address] [id number] [address] [place] [address], [place] [address] May, [facility] [address] [id number] [address] [place] [address], [place] [address] May, [facility] [address] [id number] [address] [place] [address], [place] [address] May, [facility] [address] [id number] [address] [place] [address], [place] [address] Apr, [facility] [address] [id number] [address] [place] [address], [place] [address] Apr, [facility] [address] [id number] [address] [place] [address], [place] [address] March, [facility] [address] [id number] [address] [place] [address], [place] [address] Feb, [facility] [address] [id number] [address] [place] [address], [place] [address] Jan, [facility] [address] [id number] [address] [place] [address], [place] [address] Jan, [facility] [address] [id number] [address] [place] [address], [place] [address] Dec, [facility] [address] [id number] [address] [place] [address], [place] [address] Nov, [facility] [address] [id number] [address] [place] [address], [place] [address] Oct, [facility] [address] [id number] [address] [place] [address], [place] [address] Oct, [facility] [address] [id number] [address] [place] [address], [place] [address] Sep, [facility] [address] [id number] [address] [place] [address], [place] [address] Sep, [facility] [address] [id number] [address] [place] [address], [place] [address] Sep, [facility] [address] [id number] [address] [place] [address], [place] [address] Sep, [facility] [address] [id number] [address] [place] [address], [place] [address] Sep, [facility] [address] [id number] [address] [place] [address], [place] [address] Sep, [facility] [address] [id number] [address] [place] [address], [place] [address] Sep, [facility] [address] [id number] [address] [place] [address], [place] [address] Sep, [facility] [address] [id number] [address] [place] [address], [place] [address] Jul, [facility] [address] [id number] [address] [place] [address], [place] [address] Jun, [facility] [address] [id number] [address] [place] [address], [place] [address] Jun, [facility] [address] [id number] [address] [place] [address], [place] [address] 15 Jun, 2012 [facility] [address] [id number] [address] [place] [address], [place] [address] Jun, [facility] [address] [id number] [address] [place] [address], [place] [address] 05 May, 2012 [facility] [address] [id number] [address] [place] [address], [place] [address] Apr, [facility] [address] [id number] [address] [place] [address], [place] [address] Jan, [facility] [address] [id number] [address] [place] [address], [place] [address] Dec, [facility] [address] [id number] [address] [place] [address], [place] [address] Dec, [facility] [address] [id number] [address] [place] [address], [place] [address] Nov, [facility] [address] [id number] [address] [place] [address], [place] [address] Oct, [facility] [address] [id number] [address] [place] [address], [place] [address] 19 Oct, 2011 [facility] [address] [id number] [address] [place] [address], [place] [address] 18 Aug, 2011 [facility] [address] [id number] [address] [place] [address], [place] [address] 18 Aug, 2011 [facility] [address] [id number] [address] [place] [address], [place] [address] 18 Aug, 2011 [facility] [address] [id number] [address] [place] [address] 14 Aug, 2011 [facility] [address] [id number] [address] [place] [address], [place] [address] 11 Aug, 2011 [facility] [address] [id number] [address] [place] [address], [place] [address] Aug, [facility] [address] [id number] [address] [place] [address], [place] [address] 19 May, 2011 [facility] [address] [id number] [address] [place] [address] [place] [address] 13 Apr, 2011 [facility] [address] [id number] [address] [place] [address], [place] [address] 18 Feb, 2011 [facility] [address] [id number] [address] [place] [address], [place] [address] 28 Oct, 2010 [facility] [address] [id number] [address] [place] [address], [place] [address] 21 Oct, 2010 [facility] [address] [id number] [address] [place] [address], [place] [address] 07 Oct, 2010 [facility] [address] [id number] [address] [place] [address], [place] [address] 09 Sep, 2010 [facility] [address] [id number] [address] [place] [address], [place] [address] 26 Aug, 2010 [facility] [address] [id number] [address] [place] [address], [place] [address] 16 Jul, 2010 [facility] [address] [id number] [address] [place] [address], [place] [address] 13 May, 2010 [facility] [address] [id number] [address] [place] [address], [place] [address] 19 Dec, 2009 [facility] [address] [id number] [address] [place] [address], [place] [address] Nov, [facility] [address] [id number] [address] [place] [address], [place] [address] 14 Oct, 2009 [facility] [address] [id number] [address] [place] [address], [place] [address] 27 Sep, 2009 [facility] [address] [id number] [address] [place] [address], [place] [address] 05 Sep, 2009 [facility] [address] [id number] [address] [place] [address], [place] [address] 14 Jul, 2009 [facility] [address] [id number] [address] [place] [address], [place] [address] 17 Jun, 2009 [facility] [address] [facility] [id number] [address] [place] [address] May, IMMUNIZATIONS No Known Immunizations SOCIAL HISTORY Never Assessed REASON FOR VISIT per lab results PLAN OF CARE VITAL SIGNS MEDICATIONS Medication Instructions Dosage Frequency Start Date End Date Duration S tatus Potassium & Magnesium Aspartat 250-250 MG Orally twice a day 1 capsule with a meal 12h 11 Jul, 2018 30 days Active RESULTS No Results PROCEDURES No Known [...]
--- OUTSIDE RECORDS SUMMARY | 2020-06-11 21:03 | XMS REPORT ---
Author Author Jd ROBLEDO Organization [facility] Address [address] [place] [address] Care Team Providers Care Covering Machine Operator Name Role Phone PAULA ROBLEDO Unavailable PROBLEMS Type Condition ICD9-CM Code [id number] Code Onset Dates Condition S tatus SNOMED Code Problem Other chronic pain G89.29 Active 8 5213859 Problem Low back pain M54.5 Active 687186 009 Problem Raynauds disease I73.00 Active 195 531204 Problem Venous insufficiency I87.2 Active 95191627 ALLERGIES Substance Reaction Event Type Date Status N.K.D.A. Unknown Non Drug Allergy Oct, Unknown SOCIAL HISTORY No smoking Hx information available PLAN OF CARE Activity Details Follow Up 3 Months Reason: VITAL SIGNS Height 73 in 2016-11-07 Weight 212.6 lbs 2016-11-07 Temperature 97.9 degrees Fahrenheit 2016-11-07 Heart Rate 74 bpm 2016-11-07 Respiratory Rate 20 2016-11-07 BMI 28.05 kg/m2 2016-11-07 Blood pressure systolic 124 mmHg 2016-11-07 Blood pressure diastolic 78 mmHg 2016-11-07 MEDICATIONS Medication Instructions Dosage Frequency Start Date End Date Duration S tatus Nisoldipine ER 34 MG 1 TABLET BY ORAL ROUTE 1 TIME PER DAY Active Lexapro 10 mg take 1 tablet by Ora l route 1 time per day (with the 20 mg for total 30 mg dose) March, Active Lyrica 100 MG 1 capsule by Oral route 1 time per day 8h Nov, Active Klor-Con 10 10 MEQ Orally Once a day 1 tablet with food 24h Nov, Active Baclofen 10 TAKE 1 TABLET BY MOUTH THREE TIMES DAILY NEEDED 6 Active Potassium & Magnesium Aspartat 250-250 MG Orally Once a day 1 capsule with a meal 24h Active Furosemide 20 MG Orally Once a day 1 tablet 24h Active RESULTS Name Result Date Reference Range [facility] 2016-11-07 Glucose, Serum 97 65-99 BUN 6 6-24 Creatinine, Serum 0.85 0.76-1.27 eGFR If NonAfricn Am 108 >59 eGFR If Africn Am 125 >59 BUN/Creatinine Ratio 7 9-20 Sodium, Serum 142 134-144 Potassium, Serum 4.1 3.5-5.2 Chloride, Serum 98 96-106 Carbon Dioxide, Total 27 18-29 Calcium, Serum 9.3 8.7-10.2 Protein, Total, Serum 6.9 6.0-8.5 Albumin, Serum 4.3 3.5-5.5 Globulin, Total 2.6 1.5-4.5 A/G Ratio 1.7 1.1-2.5 Bilirubin, Total 0.3 0.0-1.2 Alkaline Phosphatase, S 84 39-117 AST (SGOT) 24 0-40 ALT (SGPT) 19 0-44 PROCEDURES Procedure Date Ordered Related Diagnosis Body Site [facility] Nov 07, 2016 VENIPUNCT, ROUTINE* Nov 07, 2016 Office Visit, Est Pt., Level 3 Nov 07, 2016 [facility] VISIT ESTABLISHED PATIENT Nov 07, 2016 IMMUNIZATIONS No Known Immunizations
--- OUTSIDE RECORDS SUMMARY | 2020-06-11 21:03 | XMS REPORT ---
Author Author Jd ROBLEDO Organization [employer] Address Unknown Phone Unavailable Care Team Providers Care Detective And Intelligence Analyst Name Role Phone PAULA ROBLEDO CP Unavailable Allergies No Known Allergies Problems Problem Type Condition ICD-9 Code Onset Dates Condition Statu s Problem Unspecified local infection of skin and subcutaneous t issue 686.9 Active Problem Other abnormal glucose 790.29 Activ e Problem Personal history of alcoholism V11.3 Active Problem Unspecified conjunctivitis 372.30 A ctive Problem Diarrhea 787.91 Active Problem Other and unspecified noninfectious gastroenteritis an d colitis 558.9 Active Problem Chronic fatigue syndrome 780.71 Act ira Problem Ulcer of lower limb, unspecified 707.10 Active Problem Loss of weight 783.21 Active Problem Muscle weakness (generalized) 728.87 Active Problem Other and unspecified hyperlipidemia 272.4 Active Problem Unspecified arthropathy, site unspecified 716.90 Active Problem Sleep related leg cramps 327.52 Act ira Problem Cough 786.2 Active Problem Acute pharyngitis 462 Active Problem Unspecified site of ankle sprain and strain 845.00 Active Problem Acute bronchitis 466.0 Active Problem Cellulitis and abscess of foot, except toes 682.7 Active Problem Phlebitis and thrombophlebit is of superficial vessels of lower extremities 451.0 Active Problem Unspecified disease of nail 703.9 Active Problem Cramp of limb 729.82 Active Problem Need for prophylactic vaccination and inoculation, Inf luenza V04.81 Active Problem Abdominal pain, other specified site 789.09 Active Medications No Known Medications Results No Known Results Summary Purpose [employer] Submission
--- OUTSIDE RECORDS SUMMARY | 2020-06-11 21:03 | XMS REPORT ---
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 Role Phone PAULA ROBLEDO Unavailable PROBLEMS Type Condition ICD9-CM Code XTA13-OQ Code Onset Dates Condition S tatus SNOMED Code Problem Congenital deafness H90.5 Active 89585193 Problem Low back pain M54.5 Active 924362 009 Problem Raynauds disease I73.00 Active 195 103335 Problem Other chronic pain G89.29 Active 8 0536611 Problem Venous insufficiency I87.2 Active [id number] ALLERGIES No Information ENCOUNTERS Encounter Location Date Diagnosis [place] [address] [id number] 10 Sep, 2017 Hyperglycemia R73.9 [place] [address] [address] Sep, Hyperglycemia R73.9 [place] [address] [address] Sep, Raynauds disease I73.00 ; Ve nous insufficiency I87.2 and Encounter for immunization Z23 [place] [address] [place] [id number] [place] [id number] Jun, [place] [address] [place] [id number] [address] [place] [id number] May, [place] [address] [id number] May, Other chronic pain G89.29 [place] [address] [address] May, Raynauds disease I73.00 ; Ve nous insufficiency I87.2 and Low back pain M54.5 [facility] [address] [place] [id number] [address] [place] [id number] 13 Dec, 2016 Raynauds disease I73.00 ; Ve nous insufficiency I87.2 ; Low back pain M54.5 and Other chronic pain G89.29 [facility] [address] [place] [id number] [address] [place] [id number] Nov, [facility] [address] [place] [id number] [place] [address] Nov, Muscle spasm M62.838 [facility] [address] [place] [id number] [place] [id number] Nov, [facility] [address] [place] [id number] [place] [address] Oct, Folliculitis L73.9 and Venou s insufficiency I87.2 [facility] [address] [address] Sep, Dermatitis L30.9 and Raynaud s disease I73.00 [facility] [address] [place] [id number] [place] [id number] Sep, Rash and nonspecific skin er uption R21 [facility] [address] [address] Aug, Skin infection L08.9 [facility] [address] [place] [id number] [address] [place] [id number] May, Infected smith L08.9 [facility] [address] [place] [id number] [address] [place] [id number] May, Skin infection L08.9 [facility] [address] [place] [id number] [address] [place] [id number] 05 Dec, 2015 [facility] [address] [address] Nov, [facility] [address] [id number] [address] [place] [id number] Nov, [facility] [address] [facility] [id number] [address] [place] [id number] Nov, Raynauds disease I73.00 [facility] [address] [facility] [id number] [address] [place] [id number] Nov, Raynauds disease I73.00 ; Le g cramps R25.2 ; Venous insufficiency I87.2 and Routine adult health maintenance Z00.00 [facility] [address] [facility] [id number] [address] [place] [id number] Jul, Infected sebaceous cyst 706. 2 [facility] [address] [id number] [address] [place] [id number] Jun, [facility] [address] [facility] [id number] [address] [place] [id number] Jun, [facility] [address] [id number] [address] [place] [id number] Jun, Venous insufficiency 459.81 and Raynauds disease 443.0 [facility] [address] [facility] [id number] [address] [place] [id number] Feb, [facility] [address] [facility] [id number] [address] [place] [id number] Feb, [facility] [address] [facility] [id number] [address] [place] [id number] Jan, [facility] [address] [facility] [id number] [address] [place] [id number] Jan, [facility] [address] [facility] [id number] [address] [place] [id number] Dec, [facility] [address] [facility] [id number] [address] [place] [id number] Dec, [facility] [address] [id number] [address] [place] [address], [place] [address] Dec, [facility] [address] [id number] [address] [place] [address], [place] [address] Dec, [facility] [address] [id number] [address] [place] [address], [place] [address] Nov, [facility] [address] [id number] [address] [place] [address], [place] [address] Nov, [facility] [address] [id number] [address] [place] [address], [place] [address] Oct, [facility] [address] [id number] [address] [place] [address], [place] [address] Oct, [facility] [address] [id number] [address] [place] [address], [place] [address] Aug, [facility] [address] [id number] [address] [place] [address], [place] [address] Aug, [facility] [address] [id number] [address] [place] [address], [place] [address] Aug, [facility] [address] [id number] [address] [place] [address], [place] [address] Jul, [facility] [address] [id number] [address] [place] [address], [place] [address] Jul, [facility] [address] [id number] [address] [place] [address], [place] [address] Jul, [facility] [address] [id number] [address] [place] [address], [place] [address] Jul, [facility] [address] [id number] [address] [place] [address], [place] [address] Jun, [facility] [address] [id number] [address] [place] [address], [place] [address] Jun, [facility] [address] [id number] [address] [place] [address], [place] [address] Jun, [facility] [address] [id number] [address] [place] [address], [place] [address] Jun, [facility] [address] [id number] [address] [place] [address], [place] [address] May, [facility] [address] [id number] [address] [place] [address], [place] [address] May, [facility] [address] [id number] [address] [place] [address], [place] [address] May, [facility] [address] [id number] [address] [place] [address], [place] [address] May, [facility] [address] [id number] [address] [place] [address], [place] [address] May, [facility] [address] [id number] [address] [place] [address], [place] [address] May, [facility] [address] [id number] [address] [place] [address], [place] [address] May, [facility] [address] [id number] [address] [place] [address], [place] [address] Apr, [facility] [address] [id number] [address] [place] [address], [place] [address] Apr, [facility] [address] [id number] [address] [place] [address], [place] [address] Apr, [facility] [address] [id number] [address] [place] [address], [place] [address] Apr, [facility] [address] [id number] [address] [place] [address], [place] [address] March, [facility] [address] [id number] [address] [place] [address], [place] [address] March, [facility] [address] [id number] [address] [place] [address], [place] [address] March, [facility] [address] [id number] [address] [place] [address], [place] [address] March, [facility] [address] [id number] [address] [place] [address], [place] [address] March, [facility] [address] [id number] [address] [place] [address], [place] [address] March, [facility] [address] [id number] [address] [place] [address], [place] [address] March, [facility] [address] [id number] [address] [place] [address], [place] [address] Feb, [facility] [address] [id number] [address] [place] [address], [place] [address] Feb, [facility] [address] [place] [id number] Feb, [facility] [address] [id number] [address] [place] [address], [place] [address] Feb, [facility] [address] [id number] [address] [place] [address], [place] [address] Feb, [facility] [address] [id number] [address] [place] [address], [place] [address] Feb, [facility] [address] [id number] [address] [place] [address], [place] [address] Jan, [facility] [address] [id number] [address] [place] [address], [place] [address] Jan, [facility] [address] [id number] [address] [place] [address], [place] [address] Jan, [facility] [address] [id number] [address] [place] [address], [place] [address] Jan, [facility] [address] [id number] [address] [place] [address], [place] [address] Jan, [facility] [address] [id number] [address] [place] [address], [place] [address] Jan, [facility] [address] [id number] [address] [place] [id number] Jan, [facility] [address] [id number] [facility] [place] [address] Jan, [facility] [address] [id number] [address] [place] [address], [place] [address] Jan, [facility] [address] [id number] [address] [place] [address], [place] [address] Jan, [facility] [address] [id number] [address] [place] [address], [place] [address] Jan, [facility] [address] [id number] [address] [place] [address], [place] [address] Jan, [facility] [address] [id number] [address] [place] [address], [place] [address] Jan, [facility] [address] [id number] [address] [place] [address], [place] [address] Jan, [facility] [address] [id number] [address] [place] [address], [place] [address] Jan, [facility] [address] [id number] [address] [place] [address], [place] [address] Jan, [facility] [address] [id number] [address] [place] [address], [place] [address] Jan, [facility] [address] [id number] [address] [place] [address], [place] [address] Jan, [facility] [address] [id number] [address] [place] [address], [place] [address] Dec, [facility] [address] [id number] [address] [place] [address], [place] [address] Dec, [facility] [address] [id number] [address] [place] [address], [place] [address] Dec, [facility] [address] [id number] [address] [place] [address], [place] [address] Dec, [facility] [address] [id number] [address] [place] [address], [place] [address] 14 Dec, 2013 [facility] [address] [id number] [address] [place] [address], [place] [address] Dec, [facility] [address] [id number] [address] [place] [address], [place] [address] Dec, [facility] [address] [id number] [address] [place] [address], [place] [address] Dec, [facility] [address] [id number] [address] [place] [address], [place] [address] Dec, [facility] [address] [id number] [address] [place] [address], [place] [address] Dec, [facility] [address] [id number] [address] [place] [address], [place] [address] Dec, [facility] [address] [id number] [address] [place] [address], [place] [address] Dec, [facility] [address] [id number] [address] [place] [address], [place] [address] Nov, [facility] [address] [id number] [address] [place] [address], [place] [address] Nov, [facility] [address] [id number] [address] [place] [address], [place] [address] Nov, [facility] [address] [id number] [address] [place] [address], [place] [address] Nov, [facility] [address] [id number] [address] [place] [address], [place] [address] Nov, [facility] [address] [id number] [address] [place] [address], [place] [address] Nov, [facility] [address] [id number] [address] [place] [address], [place] [address] Nov, [facility] [address] [id number] [address] [place] [address], [place] [address] Oct, [facility] [address] [id number] [address] [place] [address], [place] [address] Oct, [facility] [address] [id number] [address] [place] [address], [place] [address] Sep, [facility] [address] [id number] [address] [place] [address], [place] [address] Sep, [facility] [address] [id number] [address] [place] [address], [place] [address] Sep, [facility] [address] [id number] [address] [place] [address], [place] [address] Sep, [facility] [address] [id number] [address] [place] [address], [place] [address] Aug, [facility] [address] [id number] [address] [place] [address], [place] [address] Aug, [facility] [address] [id number] [address] [place] [address], [place] [address] Aug, [facility] [address] [id number] [address] [place] [address], [place] [address] Jul, [facility] [address] [id number] [address] [place] [address], [place] [address] Jul, [facility] [address] [id number] [address] [place] [address], [place] [address] Jun, [facility] [address] [id number] [address] [place] [address], [place] [address] Jun, [facility] [address] [id number] [address] [place] [address], [place] [address] Jun, [facility] [address] [id number] [address] [place] [address], [place] [address] May, [facility] [address] [id number] [address] [place] [address], [place] [address] May, [facility] [address] [id number] [address] [place] [address], [place] [address] May, [facility] [address] [id number] [address] [place] [address], [place] [address] Apr, [facility] [address] [id number] [address] [place] [address], [place] [address] Apr, [facility] [address] [id number] [address] [place] [address], [place] [address] March, [facility] [address] [id number] [address] [place] [address], [place] [address] Feb, [facility] [address] [id number] [address] [place] [address], [place] [address] Jan, [facility] [address] [id number] [address] [place] [address], [place] [address] Jan, [facility] [address] [id number] [address] [place] [address], [place] [address] Dec, [facility] [address] [id number] [address] [place] [address], [place] [address] Nov, [facility] [address] [id number] [address] [place] [address], [place] [address] Oct, [facility] [address] [id number] [address] [place] [address], [place] [address] Oct, [facility] [address] [id number] [address] [place] [address], [place] [address] Sep, [facility] [address] [id number] [address] [place] [address], [place] [address] Sep, [facility] [address] [id number] [address] [place] [address], [place] [address] Sep, [facility] [address] [id number] [address] [place] [address], [place] [address] Sep, [facility] [address] [id number] [address] [place] [address], [place] [address] 13 Sep, 2012 [facility] [address] [id number] [address] [place] [address], [place] [address] 13 Sep, 2012 [facility] [address] [id number] [address] [place] [address], [place] [address] Sep, [facility] [address] [id number] [address] [place] [address], [place] [address] Sep, [facility] [address] [id number] [address] [place] [address], [place] [address] 04 Jul, 2012 [facility] [address] [id number] [address] [place] [address], [place] [address] 30 Jun, 2012 [facility] [address] [id number] [address] [place] [address], [place] [address] Jun, [facility] [address] [id number] [address] [place] [address], [place] [address] Jun, [facility] [address] [id number] [address] [place] [address], [place] [address] Jun, [facility] [address] [id number] [address] [place] [address], [place] [address] May, [facility] [address] [id number] [address] [place] [address], [place] [address] Apr, [facility] [address] [id number] [address] [place] [address], [place] [address] Jan, [facility] [address] [id number] [address] [place] [address], [place] [address] 14 Dec, 2011 [facility] [address] [id number] [address] [place] [address], [place] [address] Dec, [facility] [address] [id number] [address] [place] [address], [place] [address] Nov, [facility] [address] [id number] [address] [place] [address], [place] [address] Oct, [facility] [address] [id number] [address] [place] [address], [place] [address] 19 Oct, 2011 [facility] [address] [id number] [address] [place] [address], [place] [id number] 18 Aug, 2011 [facility] [address] [id number] [address] [place] [address], [place] [address] 18 Aug, 2011 [facility] [address] [id number] [address] [place] [address], [place] [id number] 18 Aug, 2011 [facility] [address] [id number] [address] [place] [address], [place] [id number] 14 Aug, 2011 [facility] [address] [id number] [address] [place] [address], [place] [address] 11 Aug, 2011 [facility] [address] [id number] [address] [place] [address], [place] [id number] 11 Aug, 2011 [facility] [address] [id number] [address] [place] [address], [place] [id number] 19 May, 2011 [facility] [address] [id number] [address] [place] [address], [place] [id number] 13 Apr, 2011 [facility] [address] [id number] [address] [place] [address], [place] [address] 18 Feb, 2011 [facility] [address] [id number] [address] [place] [address], [place] [address] 28 Oct, 2010 [facility] [address] [id number] [address] [place] [address], [place] [address] 21 Oct, 2010 [facility] [address] [id number] [address] [place] [address], [place] [address] 07 Oct, 2010 [facility] [address] [id number] [address] [place] [address], [place] [id number] 09 Sep, 2010 [facility] [address] [id number] [address] [place] [address], [place] [id number] 26 Aug, 2010 [facility] [address] [id number] [address] [place] [address], [place] [id number] 16 Jul, 2010 [facility] [address] [id number] [address] [place] [id number] 13 May, 2010 [facility] [address] [id number] [address] [place] [id number] Dec, [facility] [address] [id number] [address] [place] [id number] Nov, [facility] [address] [id number] [address] [place] [id number] Oct, [facility] [address] [id number] [address] [place] [id number] Sep, [facility] [address] [id number] [address] [place] [id number] Sep, [facility] [address] [id number] [address] [place] [id number] Jul, [facility] [address] [id number] [address] [place] [id number] Jun, [facility] [address] [id number] [address] [place] [id number] May, IMMUNIZATIONS No Known Immunizations SOCIAL HISTORY [...]
--- OUTSIDE RECORDS SUMMARY | 2020-06-11 21:03 | XMS REPORT ---
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
--- OUTSIDE RECORDS SUMMARY | 2020-06-11 21:03 | XMS REPORT ---
Author Author Jd ROBLEDO Organization [employer] Address Unknown Phone Unavailable Care Team Providers Care Division Head Name Role Phone PAULA ROBLEDO CP Unavailable [...]
--- OUTSIDE RECORDS SUMMARY | 2020-06-11 21:03 | XMS REPORT ---
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 Name Role Phone PAULA ROBLEDO Unavailable PROBLEMS Type Condition ICD9-CM Code IRD33-QC Code Onset Dates Condition S tatus SNOMED Code Problem Raynauds disease I73.00 Active 195 307668 Problem Neuropathy G62.9 Active 456803490 Problem Dysthymia F34.1 Active 25793324 Problem Other chronic pain G89.29 Active 8 1686272 Problem Venous insufficiency I87.2 Active 58079030 Problem Congenital deafness H90.5 Active 09602894 Problem Low back pain M54.5 Active 619830 009 ALLERGIES No Information ENCOUNTERS Encounter Location Date Diagnosis [place] [id number] [place] [id number] [place] [address] May, Medicare annual wellness vis it, initial Z00.00 ; Dysthymia F34.1 ; Raynauds disease I73.00 ; Venous insufficiency I87.2 ; Congenital deafness H90.5 and Neuropathy G62.9 [place] [address] [place] [id number] [place] [address] Apr, [place] [address] [place] [id number] [place] [address] Apr, Prediabetes R73.03 ; Raynaud s disease I73.00 ; Venous insufficiency I87.2 ; Neuropathy G62.9 and Dysthymia F34.1 [place] [address] [place] [id number] [place] [address] March, [facility] [address] [place] [id number] [place] [address] Sep, Hyperglycemia R73.9 [place] [address] [address] 07 Sep, 2017 Hyperglycemia R73.9 [place] [address] [address] Sep, Raynauds disease I73.00 ; Ve nous insufficiency I87.2 and Encounter for immunization Z23 [place] [address] [address] Jun, [facility] [address] [address] May, [place] [address] [address] May, Other chronic pain G89.29 [place] [address] [address] May, Raynauds disease I73.00 ; Ve nous insufficiency I87.2 and Low back pain M54.5 [place] [address] [address] Dec, Raynauds disease I73.00 ; Ve nous insufficiency I87.2 ; Low back pain M54.5 and Other chronic pain G89.29 [place] [address] [address] Nov, [facility] [address] [address] Nov, Muscle spasm M62.838 [facility] [address] [address] Nov, [place] [address] [address] Oct, Folliculitis L73.9 and Venou s insufficiency I87.2 [place] [address] [address] 17 Nov, 2016 Dermatitis L30.9 and Raynaud s disease I73.00 [facility] [address] [id number] [address] [place] [address] Sep, Rash and nonspecific skin er uption R21 [facility] [address] [id number] [address] [place] [address] Aug, Skin infection L08.9 [facility] [address] [facility] [id number] [address] [place] [address] May, Infected smith L08.9 [facility] [address] [id number] [address] [place] [address] May, Skin infection L08.9 [facility] [address] [facility] [id number] [address] [place] [address] Dec, [facility] [address] [facility] [id number] [address] [place] [address] Nov, [facility] [address] [facility] [id number] [address] [place] [address] Nov, [facility] [address] [facility] [id number] [address] [place] [address] Nov, Raynauds disease I73.00 [facility] [address] [facility] [id number] [address] [place] [address] Nov, Raynauds disease I73.00 ; Le g cramps R25.2 ; Venous insufficiency I87.2 and Routine adult health maintenance Z00.00 [facility] [address] [id number] [address] [place] [address] Jul, Infected sebaceous cyst 706. 2 [facility] [address] [facility] [id number] [address] [place] [address] Jun, [facility] [address] [facility] [id number] [address] [place] [address] Jun, [facility] [address] [facility] [id number] [address] [place] [address] Jun, Venous insufficiency 459.81 and Raynauds disease 443.0 [facility] [address] [id number] [address] [place] [address] Feb, [facility] [address] [id number] [address] [place] [address] Feb, [facility] [address] [id number] [address] [place] [address] Jan, [facility] [address] [id number] [address] [place] [address] Jan, [facility] [address] [id number] [address] [place] [address] Dec, [facility] [address] [id number] [address] [place] [address] Dec, [facility] [address] [id number] [address] [place] [address] Dec, [facility] [address] [id number] [address] [place] [address] Dec, [facility] [address] [id number] [address] [place] [address] Nov, [facility] [address] [id number] [address] [place] [address] Nov, [facility] [address] [id number] [address] [place] [address] Oct, [facility] [address] [id number] [address] [place] [address] Oct, [facility] [address] [id number] [address] [place] [address] Aug, [facility] [address] [id number] [address] [place] [address] Aug, [facility] [address] [id number] [address] [place] [address] Aug, [facility] [address] [id number] [facility] [address] Jul, [facility] [address] [id number] [address] [place] [address], [place] [address] Jul, [facility] [address] [id number] [address] [place] [address], [place] [address] Jul, [facility] [address] [id number] [address] [place] [address], [place] [address] Jul, [facility] [address] [id number] [address] [place] [address], [place] [address] Jun, [facility] [address] [id number] [address] [place] [address], [place] [address] Jun, [facility] [address] [id number] [address] [place] [address], [place] [address] Jun, [facility] [address] [id number] [address] [place] [address], [place] [address] Jun, [facility] [address] [id number] [address] [place] [address], [place] [address] May, [facility] [address] [id number] [address] [place] [address], [place] [address] May, [facility] [address] [id number] [address] [place] [address], [place] [address] May, [facility] [address] [id number] [address] [place] [address], [place] [address] May, [facility] [address] [id number] [address] [place] [address], [place] [address] May, [facility] [address] [id number] [address] [place] [address], [place] [address] May, [facility] [address] [id number] [address] [place] [address], [place] [address] May, [facility] [address] [id number] [address] [place] [address], [place] [address] Apr, [facility] [address] [id number] [address] [place] [address], [place] [address] Apr, [facility] [address] [id number] [address] [place] [address], [place] [address] Apr, [facility] [address] [id number] [address] [place] [address], [place] [address] Apr, [facility] [address] [id number] [address] [place] [address], [place] [address] March, [facility] [address] [id number] [address] [place] [address], [place] [address] March, [facility] [address] [id number] [address] [place] [address], [place] [address] March, [facility] [address] [id number] [address] [place] [address], [place] [address] March, [facility] [address] [id number] [address] [place] [address], [place] [address] March, [facility] [address] [id number] [address] [place] [address], [place] [address] March, [facility] [address] [id number] [address] [place] [address], [place] [address] March, [facility] [address] [id number] [address] [place] [address], [place] [address] Feb, [facility] [address] [id number] [address] [place] [address], [place] [address] Feb, [facility] [address] [place] [id number] Feb, [facility] [address] [id number] [address] [place] [address], [place] [address] Feb, [facility] [address] [id number] [address] [place] [address], [place] [address] Feb, [facility] [address] [id number] [facility] [address] Feb, [facility] [address] [id number] [facility] [place] [address] Jan, [facility] [address] [id number] [facility] [place] [address] Jan, [facility] [address] [id number] [facility] [address] Jan, [facility] [address] [id number] [facility] [address] Jan, [facility] [address] [id number] [facility] [place] [address] Jan, [facility] [address] [id number] [facility] [place] [address] Jan, [facility] [address] [id number] [address] [place] [address], [place] [address] Jan, [facility] [address] [id number] [facility] [place] [address] Jan, [facility] [address] [id number] [address] [place] [address], [place] [address] Jan, [facility] [address] [id number] [facility] [place] [address] Jan, [facility] [address] [id number] [facility] [address] Jan, [facility] [address] [id number] [facility] [place] [address] Jan, [facility] [address] [id number] [facility] [place] [address] Jan, [facility] [address] [id number] [facility] [place] [address] Jan, [facility] [address] [id number] [address] [place] [address], [place] [address] Jan, [facility] [address] [id number] [facility] [place] [address] 10 Jan, 2014 [facility] [address] [id number] [address] [place] [address], [place] [address] Jan, [facility] [address] [id number] [address] [place] [address], [place] [address] Jan, [facility] [address] [id number] [address] [place] [address], [place] [address] Dec, [facility] [address] [id number] [address] [place] [address], [place] [address] Dec, [facility] [address] [id number] [address] [place] [address], [place] [address] Dec, [facility] [address] [id number] [address] [place] [address], [place] [address] Dec, [facility] [address] [id number] [address] [place] [address], [place] [address] 14 Dec, 2013 [facility] [address] [id number] [address] [place] [address], [place] [address] 07 Dec, 2013 [facility] [address] [id number] [address] [place] [address], [place] [address] 07 Dec, 2013 [facility] [address] [id number] [address] [place] [address], [place] [address] 06 Dec, 2013 [facility] [address] [id number] [address] [place] [address], [place] [address] 04 Dec, 2013 [facility] [address] [id number] [address] [place] [address], [place] [address] 04 Dec, 2013 [facility] [address] [id number] [address] [place] [address], [place] [address] 04 Dec, 2013 [facility] [address] [id number] [address] [place] [address], [place] [address] 04 Dec, 2013 [facility] [address] [id number] [address] [place] [address], [place] [address] Nov, [facility] [address] [id number] [address] [place] [address], [place] [address] Nov, [facility] [address] [id number] [address] [place] [address], [place] [address] Nov, [facility] [address] [id number] [address] [place] [address], [place] [address] Nov, [facility] [address] [id number] [address] [place] [address], [place] [address] Nov, [facility] [address] [id number] [address] [place] [address], [place] [address] Nov, [facility] [address] [id number] [address] [place] [address], [place] [address] Nov, [facility] [address] [id number] [address] [place] [address], [place] [address] Oct, [facility] [address] [id number] [address] [place] [address], [place] [address] Oct, [facility] [address] [id number] [address] [place] [address], [place] [address] Sep, [facility] [address] [id number] [address] [place] [address], [place] [address] Sep, [facility] [address] [id number] [address] [place] [address], [place] [address] Sep, [facility] [address] [id number] [address] [place] [address], [place] [address] Sep, [facility] [address] [id number] [address] [place] [address], [place] [address] Aug, [facility] [address] [id number] [address] [place] [address], [place] [address] Aug, [facility] [address] [id number] [address] [place] [address], [place] [address] Aug, [facility] [address] [id number] [address] [place] [address], [place] [address] Jul, [facility] [address] [id number] [address] [place] [address], [place] [address] Jul, [facility] [address] [id number] [address] [place] [address], [place] [address] Jun, [facility] [address] [id number] [address] [place] [address], [place] [address] Jun, [facility] [address] [id number] [address] [place] [address], [place] [address] Jun, [facility] [address] [id number] [address] [place] [address], [place] [address] May, [facility] [address] [id number] [address] [place] [address], [place] [address] May, [facility] [address] [id number] [address] [place] [address], [place] [address] May, [facility] [address] [id number] [address] [place] [address], [place] [address] Apr, [facility] [address] [id number] [address] [place] [address], [place] [address] Apr, [facility] [address] [id number] [address] [place] [address], [place] [address] March, [facility] [address] [id number] [address] [place] [address], [place] [address] Feb, [facility] [address] [id number] [address] [place] [address], [place] [address] Jan, [facility] [address] [id number] [address] [place] [address], [place] [address] Jan, [facility] [address] [id number] [address] [place] [address], [place] [address] Dec, [facility] [address] [id number] [address] [place] [address], [place] [address] Nov, [facility] [address] [id number] [address] [place] [address], [place] [address] Oct, [facility] [address] [id number] [address] [place] [address], [place] [address] Oct, [facility] [address] [id number] [address] [place] [address], [place] [address] Sep, [facility] [address] [id number] [address] [place] [address], [place] [address] Sep, [facility] [address] [id number] [address] [place] [address], [place] [address] Sep, [facility] [address] [id number] [address] [place] [address], [place] [address] Sep, [facility] [address] [id number] [address] [place] [address], [place] [address] Sep, [facility] [address] [id number] [address] [place] [address], [place] [address] Sep, [facility] [address] [id number] [address] [place] [address], [place] [address] Sep, [facility] [address] [id number] [address] [place] [address], [place] [address] Sep, [facility] [address] [id number] [address] [place] [address], [place] [address] Jul, [facility] [address] [id number] [address] [place] [address], [place] [address] Jun, [facility] [address] [id number] [address] [place] [address], [place] [address] Jun, [facility] [address] [id number] [address] [place] [address], [place] [address] 15 Jun, 2012 [facility] [address] [id number] [address] [place] [address], [place] [address] Jun, [facility] [address] [id number] [address] [place] [address], [place] [address] 05 May, 2012 [facility] [address] [id number] [address] [place] [address], [place] [address] Apr, [facility] [address] [id number] [address] [place] [address], [place] [address] Jan, [facility] [address] [id number] [address] [place] [address], [place] [address] Dec, [facility] [address] [id number] [address] [place] [address], [place] [address] Dec, [facility] [address] [id number] [address] [place] [address], [place] [address] Nov, [facility] [address] [id number] [address] [place] [address], [place] [address] Oct, [facility] [address] [id number] [address] [place] [address], [place] [address] 19 Oct, 2011 [facility] [address] [id number] [address] [place] [address], [place] [address] 18 Aug, 2011 [facility] [address] [id number] [address] [place] [address], [place] [address] 18 Aug, 2011 [facility] [address] [id number] [address] [place] [address], [place] [address] 18 Aug, 2011 [facility] [address] [id number] [address] [place] [address] 14 Aug, 2011 [facility] [address] [id number] [address] [place] [address], [place] [address] 11 Aug, 2011 [facility] [address] [id number] [address] [place] [address], [place] [address] Aug, [facility] [address] [id number] [address] [place] [address], [place] [address] 19 May, 2011 [facility] [address] [id number] [address] [place] [address] [place] [address] 13 Apr, 2011 [facility] [address] [id number] [address] [place] [address], [place] [address] 18 Feb, 2011 [facility] [address] [id number] [address] [place] [address], [place] [address] 28 Oct, 2010 [facility] [address] [id number] [address] [place] [address], [place] [address] 21 Oct, 2010 [facility] [address] [id number] [address] [place] [address], [place] [address] 07 Oct, 2010 [facility] [address] [id number] [address] [place] [address], [place] [address] 09 Sep, 2010 [facility] [address] [id number] [address] [place] [address], [place] [address] 26 Aug, 2010 [facility] [address] [id number] [address] [place] [address], [place] [address] 16 Jul, 2010 [facility] [address] [id number] [address] [place] [address], [place] [address] 13 May, 2010 [facility] [address] [id number] [address] [place] [address], [place] [address] 19 Dec, 2009 [facility] [address] [id number] [address] [place] [address], [place] [address] Nov, [facility] [address] [id number] [address] [place] [address], [place] [address] 14 Oct, 2009 [facility] [address] [id number] [address] [place] [address], [place] [address] 27 Sep, 2009 [facility] [address] [id number] [address] [place] [address], [place] [address] 05 Sep, 2009 [facility] [address] [id number] [address] [place] [address], [place] [address] 14 Jul, 2009 [facility] [address] [id number] [address] [place] [address], [place] [address] 17 Jun, 2009 [facility] [address] [facility] [id number] [address] [place] [address] May, IMMUNIZATIONS No Known Immunizations SOCIAL HISTORY Never Assessed REASON FOR VISIT Requests return call PLAN OF CARE VITAL SIGNS MEDICATIONS No [...]
--- OUTSIDE RECORDS SUMMARY | 2020-06-11 21:03 | XMS REPORT ---
Author Author Jd ROBLEDO Organization [facility] [place] Address [address] [place] [address] Care Team Providers Care Communication Clerk Name Role Phone PAULA ROBLEDO Unavailable PROBLEMS Type Condition ICD9-CM Code TIM64-AO Code Onset Dates Condition S tatus SNOMED Code Problem Congenital deafness H90.5 Active 71145559 Problem Low back pain M54.5 Active 729507 009 Problem Raynauds disease I73.00 Active 195 969683 Problem Other chronic pain G89.29 Active 8 4939423 Problem Venous insufficiency I87.2 Active [id number] ALLERGIES No Information ENCOUNTERS Encounter Location Date Diagnosis [place] [address] [id number] 10 Sep, 2017 Hyperglycemia R73.9 [place] [address] [address] Sep, Hyperglycemia R73.9 [place] [address] [address] 06 Sep, 2017 Raynauds disease I73.00 ; Ve nous insufficiency I87.2 and Encounter for immunization Z23 [place] [address] [address] [id number] [place] [address] Jun, [place] [address] [address] [place] [id number] [address] [place] [address] May, [place] [address] [address] May, Other chronic pain G89.29 [place] [address] [address] May, Raynauds disease I73.00 ; Ve nous insufficiency I87.2 and Low back pain M54.5 [facility] [place] [address] [place] [id number] [address] [place] [address] 13 Dec, 2016 Raynauds disease I73.00 ; Ve nous insufficiency I87.2 ; Low back pain M54.5 and Other chronic pain G89.29 [facility] [place] [address] [place] [id number] [address] [place] [id number] Nov, [facility] [place] [address] [place] [id number] [place] [address] Nov, Muscle spasm M62.838 [facility] [address] [place] [id number] [place] [address] Nov, [facility] [place] [address] [place] [id number] [place] [address] Oct, Folliculitis L73.9 and Venou s insufficiency I87.2 [facility] [place] [address] [address] Sep, Dermatitis L30.9 and Raynaud s disease I73.00 [facility] [address] [place] [id number] [place] [address] Sep, Rash and nonspecific skin er uption R21 [facility] [place] [address] [address] Aug, Skin infection L08.9 [facility] [place] [address] [place] [id number] [address] [place] [address] May, Infected smith L08.9 [facility] [place] [address] [place] [id number] [address] [place] [id number] May, Skin infection L08.9 [facility] [place] [address] [place] [id number] [address] [place] [id number] 05 Dec, 2015 [facility] [place] [address] [address] Nov, [facility] [place] [address] [id number] [address] [place] [id number] Nov, [facility] [place] [address] [facility] [id number] [address] [place] [address] Nov, Raynauds disease I73.00 [facility] [place] [address] [facility] [id number] [address] [place] [address] Nov, Raynauds disease I73.00 ; Le g cramps R25.2 ; Venous insufficiency I87.2 and Routine adult health maintenance Z00.00 [facility] [place] [address] [facility] [id number] [address] [place] [id number] Jul, Infected sebaceous cyst 706. 2 [facility] [place] [address] [id number] [address] [place] [address] Jun, [facility] [place] [address] [facility] [id number] [address] [place] [id number] Jun, [facility] [place] [address] [id number] [address] [place] [id number] Jun, Venous insufficiency 459.81 and Raynauds disease 443.0 [facility] [place] [address] [facility] [id number] [address] [place] [address] Feb, [facility] [place] [address] [facility] [id number] [address] [place] [phone] Feb, [facility] [place] [address] [facility] [id number] [address] [place] [address] Jan, [facility] [place] [address] [facility] [id number] [address] [place] [id number] Jan, [facility] [place] [address] [facility] [id number] [address] [place] [phone] Dec, [facility] [place] [address] [facility] [id number] [address] [place] [phone] Dec, [facility] [place] [address] [id number] [address] [place] [address], [place] [address] Dec, [facility] [address] [id number] [address] [place] [address], [place] [address] Dec, [facility] [address] [id number] [address] [place] [address], [place] [address] Nov, [facility] [address] [id number] [address] [place] [address], [place] [address] Nov, [facility] [address] [id number] [address] [place] [address], [place] [address] Oct, [facility] [address] [id number] [address] [place] [address], [place] [address] Oct, [facility] [address] [id number] [address] [place] [address], [place] [address] Aug, [facility] [address] [id number] [address] [place] [address], [place] [address] Aug, [facility] [address] [id number] [address] [place] [address], [place] [address] Aug, [facility] [address] [id number] [address] [place] [address], [place] [address] Jul, [facility] [address] [id number] [address] [place] [address], [place] [address] Jul, [facility] [address] [id number] [address] [place] [address], [place] [address] Jul, [facility] [address] [id number] [address] [place] [address], [place] [address] Jul, [facility] [address] [id number] [address] [place] [address], [place] [address] Jun, [facility] [address] [id number] [address] [place] [address], [place] [address] Jun, [facility] [address] [id number] [address] [place] [address], [place] [address] Jun, [facility] [address] [id number] [address] [place] [address], [place] [address] Jun, [facility] [address] [id number] [address] [place] [address], [place] [address] May, [facility] [address] [id number] [address] [place] [address], [place] [address] May, [facility] [address] [id number] [address] [place] [address], [place] [address] May, [facility] [address] [id number] [address] [place] [address], [place] [address] May, [facility] [address] [id number] [address] [place] [address], [place] [address] May, [facility] [address] [id number] [address] [place] [address], [place] [address] May, [facility] [address] [id number] [address] [place] [address], [place] [address] May, [facility] [address] [id number] [address] [place] [address], [place] [address] Apr, [facility] [address] [id number] [address] [place] [address], [place] [address] Apr, [facility] [address] [id number] [address] [place] [address], [place] [address] Apr, [facility] [address] [id number] [address] [place] [address], [place] [address] Apr, [facility] [address] [id number] [address] [place] [address], [place] [address] March, [facility] [address] [id number] [address] [place] [address], [place] [address] March, [facility] [address] [id number] [address] [place] [address], [place] [address] March, [facility] [address] [id number] [address] [place] [address], [place] [address] March, [facility] [address] [id number] [address] [place] [address], [place] [address] March, [facility] [address] [id number] [address] [place] [address], [place] [address] March, [facility] [address] [id number] [address] [place] [address], [place] [address] March, [facility] [address] [id number] [address] [place] [address], [place] [address] Feb, [facility] [address] [id number] [address] [place] [address], [place] [address] Feb, [facility] [address] [place] [id number] Feb, [facility] [address] [id number] [address] [place] [address], [place] [address] Feb, [facility] [address] [id number] [address] [place] [address], [place] [address] Feb, [facility] [address] [id number] [address] [place] [address], [place] [address] Feb, [facility] [address] [id number] [address] [place] [address], [place] [address] Jan, [facility] [address] [id number] [address] [place] [address], [place] [address] Jan, [facility] [address] [id number] [address] [place] [address], [place] [address] Jan, [facility] [address] [id number] [address] [place] [address], [place] [address] Jan, [facility] [address] [id number] [address] [place] [address], [place] [address] Jan, [facility] [address] [id number] [address] [place] [address], [place] [address] Jan, [facility] [address] [id number] [address] [place] [id number] Jan, [facility] [address] [id number] [facility] [address] Jan, [facility] [address] [id number] [address] [place] [address], [place] [address] Jan, [facility] [address] [id number] [address] [place] [address], [place] [address] Jan, [facility] [address] [id number] [address] [place] [address], [place] [address] Jan, [facility] [address] [id number] [address] [place] [address], [place] [address] Jan, [facility] [address] [id number] [address] [place] [address], [place] [address] Jan, [facility] [address] [id number] [address] [place] [address], [place] [address] Jan, [facility] [address] [id number] [address] [place] [address], [place] [address] Jan, [facility] [address] [id number] [address] [place] [address], [place] [address] Jan, [facility] [address] [id number] [address] [place] [address], [place] [address] Jan, [facility] [address] [id number] [address] [place] [address], [place] [address] Jan, [facility] [address] [id number] [address] [place] [address], [place] [address] Dec, [facility] [address] [id number] [address] [place] [address], [place] [address] Dec, [facility] [address] [id number] [address] [place] [address], [place] [address] Dec, [facility] [address] [id number] [address] [place] [address], [place] [address] Dec, [facility] [address] [id number] [address] [place] [address], [place] [address] 14 Dec, 2013 [facility] [address] [id number] [address] [place] [address], [place] [address] Dec, [facility] [address] [id number] [address] [place] [address], [place] [address] Dec, [facility] [address] [id number] [address] [place] [address], [place] [address] Dec, [facility] [address] [id number] [address] [place] [address], [place] [address] Dec, [facility] [address] [id number] [address] [place] [address], [place] [address] Dec, [facility] [address] [id number] [address] [place] [address], [place] [address] Dec, [facility] [address] [id number] [address] [place] [address], [place] [address] Dec, [facility] [address] [id number] [address] [place] [address], [place] [address] Nov, [facility] [address] [id number] [address] [place] [address], [place] [address] Nov, [facility] [address] [id number] [address] [place] [address], [place] [address] Nov, [facility] [address] [id number] [address] [place] [address], [place] [address] Nov, [facility] [address] [id number] [address] [place] [address], [place] [address] Nov, [facility] [address] [id number] [address] [place] [address], [place] [address] Nov, [facility] [address] [id number] [address] [place] [address], [place] [address] Nov, [facility] [address] [id number] [address] [place] [address], [place] [address] Oct, [facility] [address] [id number] [address] [place] [address], [place] [address] Oct, [facility] [address] [id number] [address] [place] [address], [place] [address] Sep, [facility] [address] [id number] [address] [place] [address], [place] [address] Sep, [facility] [address] [id number] [address] [place] [address], [place] [address] Sep, [facility] [address] [id number] [address] [place] [address], [place] [address] Sep, [facility] [address] [id number] [address] [place] [address], [place] [address] Aug, [facility] [address] [id number] [address] [place] [address], [place] [address] Aug, [facility] [address] [id number] [address] [place] [address], [place] [address] Aug, [facility] [address] [id number] [address] [place] [address], [place] [address] Jul, [facility] [address] [id number] [address] [place] [address], [place] [address] Jul, [facility] [address] [id number] [address] [place] [address], [place] [address] Jun, [facility] [address] [id number] [address] [place] [address], [place] [address] Jun, [facility] [address] [id number] [address] [place] [address], [place] [address] Jun, [facility] [address] [id number] [address] [place] [address], [place] [address] May, [facility] [address] [id number] [address] [place] [address], [place] [address] May, [facility] [address] [id number] [address] [place] [address], [place] [address] May, [facility] [address] [id number] [address] [place] [address], [place] [address] Apr, [facility] [address] [id number] [address] [place] [address], [place] [address] Apr, [facility] [address] [id number] [address] [place] [address], [place] [address] March, [facility] [address] [id number] [address] [place] [address], [place] [address] Feb, [facility] [address] [id number] [address] [place] [address], [place] [address] Jan, [facility] [address] [id number] [address] [place] [address], [place] [address] Jan, [facility] [address] [id number] [address] [place] [address], [place] [address] Dec, [facility] [address] [id number] [address] [place] [address], [place] [address] Nov, [facility] [address] [id number] [address] [place] [address], [place] [address] Oct, [facility] [address] [id number] [address] [place] [address], [place] [address] Oct, [facility] [address] [id number] [address] [place] [address], [place] [address] Sep, [facility] [address] [id number] [address] [place] [address], [place] [address] Sep, [facility] [address] [id number] [address] [place] [address], [place] [address] Sep, [facility] [address] [id number] [address] [place] [address], [place] [address] Sep, [facility] [address] [id number] [address] [place] [address], [place] [address] 13 Sep, 2012 [facility] [address] [id number] [address] [place] [address], [place] [address] 13 Sep, 2012 [facility] [address] [id number] [address] [place] [address], [place] [address] Sep, [facility] [address] [id number] [address] [place] [address], [place] [id number] Sep, [facility] [address] [id number] [address] [place] [address], [place] [id number] 04 Jul, 2012 [facility] [address] [id number] [address] [place] [address], [place] [id number] 30 Jun, 2012 [facility] [address] [id number] [address] [place] [address], [place] [id number] Jun, [facility] [address] [id number] [address] [place] [address], [place] [id number] Jun, [facility] [address] [id number] [address] [place] [address], [place] [id number] Jun, [facility] [address] [id number] [address] [place] [address], [place] [id number] May, [facility] [address] [id number] [address] [place] [address], [place] [address] Apr, [facility] [address] [id number] [address] [place] [address], [place] [id number] Jan, [facility] [address] [id number] [address] [place] [address], [place] [id number] 14 Dec, 2011 [facility] [address] [id number] [address] [place] [address], [place] [id number] Dec, [facility] [address] [id number] [address] [place] [address], [place] [id number] Nov, [facility] [address] [id number] [address] [place] [address], [place] [id number] Oct, [facility] [address] [id number] [address] [place] [address], [place] [id number] 19 Oct, 2011 [facility] [address] [id number] [address] [place] [address], [place] [id number] 18 Aug, 2011 [facility] [address] [id number] [address] [place] [address], [place] [id number] 18 Aug, 2011 [facility] [address] [id number] [address] [place] [address], [place] [id number] 18 Aug, 2011 [facility] [address] [id number] [address] [place] [address], [place] [id number] 14 Aug, 2011 [facility] [address] [id number] [address] [place] [address], [place] [id number] 11 Aug, 2011 [facility] [address] [id number] [address] [place] [address], [place] [id number] 11 Aug, 2011 [facility] [address] [id number] [address] [place] [address], [place] [id number] 19 May, 2011 [facility] [address] [id number] [address] [place] [address], [place] [id number] 13 Apr, 2011 [facility] [address] [id number] [address] [place] [address], [place] [id number] 18 Feb, 2011 [facility] [address] [id number] [address] [place] [address], [place] [id number] 28 Oct, 2010 [facility] [address] [id number] [address] [place] [address], [place] [id number] 21 Oct, 2010 [facility] [address] [id number] [address] [place] [address], [place] [id number] 07 Oct, 2010 [facility] [address] [id number] [address] [place] [address], [place] [id number] 09 Sep, 2010 [facility] [address] [id number] [address] [place] [address], [place] [address] 26 Aug, 2010 [facility] [address] [id number] [address] [place] [address], [place] [id number] 16 Jul, 2010 [facility] [place] [address] [id number] [address] [place] [id number] 13 May, 2010 [facility] [place] [address] [id number] [address] [place] [id number] Dec, [facility] [place] [address] [id number] [address] [place] [id number] Nov, [facility] [place] [address] [id number] [address] [place] [id number] Oct, [facility] [place] [address] [id number] [address] [place] [phone] Sep, [facility] [place] [address] [id number] [address] [place] [phone] Sep, [facility] [place] [address] [id number] [address] [place] [id number] Jul, [facility] [place] [address] [id number] [address] [place] [id number] Jun, [facility] [place] [address] [id number] [address] [place] [id number] May, IMMUNIZATIONS No Known Immunizations SOCIAL HISTORY Never Assessed REASON FOR VISIT MAGNO Guillen (denied) PLAN OF CARE VITAL SIGNS MEDICATIONS Unknown [...]
--- OUTSIDE RECORDS SUMMARY | 2020-06-11 21:03 | XMS REPORT ---
Author Author Jd ROBLEDO [facility] eClinicalWorks Address Unknown Phone Unavailable Care Team Providers Care Die Fitter Name Role Phone PAULA ROBLEDO Unavailable Allergies, Adverse Reactions, Alerts Substance Reaction Event Type N.K.D.A. Info Not Available Non Drug Allergy Problems Problem Type Condition Code Onset Dates Condition Statu s Problem Venous insufficiency I87.2 Active Assessment Skin infection L08.9 Active Problem Raynauds disease I73.00 Active Medications Medication Code System Code Instructions Start Date End Date Status Dosage Tramadol HCl [facility] [address]-80 50 MG Orally 3 times a day Jul 17 15 1 tablet as needed Lyrica [facility] [address]-60 100 MG Three times a day Dec 16, 2014 1 capsule by Oral route 1 time per day Bactrim DS [facility] [address]-28 800-160 MG Orally Twice a day Sep 09, 2016 Sep 19, 2016 1 tablet Nisoldipine ER [facility] 38510199785 34 MG 1 TAB LET BY ORAL ROUTE 1 TIME PER DAY Lyrica [facility] 15590736916 100 TAKE 1 CAPSU LE BY MOUTH THREE TIMES DAILY Baclofen [facility] 21949003598 10 TAKE 1 TABL ET BY MOUTH THREE TIMES DAILY NEEDED Klor-Con 10 [facility] [address]-95 10 MEQ Orally Once a day Dec 01, 2015 1 tablet with food Procedures Procedure Coding System Code Date Office Visit, Est Pt., Level 2 CPT-[address] 2015 [facility] VISIT ESTABLISHED PATIENT CPT-[address] 2015 Vital Signs Date/Time: Sep 09, 2016 Cardiac Monitoring Heart Rate 90 bpm Weight 205.9 lbs Height 73 in BMI 27.16 Index Blood Pressure Diastolic 76 mmHg Blood Pressure Systolic 151 mmHg Results No Known Results Summary Purpose eClinicalWorks Submission
--- OUTSIDE RECORDS SUMMARY | 2020-06-11 21:03 | XMS REPORT ---
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
--- OUTSIDE RECORDS SUMMARY | 2020-06-11 21:03 | XMS REPORT ---
Author Author Jd ROBLEDO [facility] eClinicalWorks Address Unknown Phone Unavailable Care Team Providers Care Small Brake Form Operator Name Role Phone PAULA ROBLEDO Unavailable Allergies, Adverse Reactions, Alerts Substance Reaction Event Type N.K.D.A. Info Not Available Non Drug Allergy Problems Problem Type Condition Code Onset Dates Condition Statu s Problem Venous insufficiency I87.2 Active Assessment Infected smith L08.9 Active Problem Raynauds disease I73.00 Active Medications Medication Code System Code Instructions Start Date End Date Status Dosage Klor-Con 10 [facility] [address]-55 10 MEQ Orally Once a day Dec 01, 2015 1 tablet with food Nisoldipine ER [facility] 02695996157 34 MG 1 TAB LET BY ORAL ROUTE 1 TIME PER DAY Disulfiram [facility] [address]-47 250 MG Orally Once a day 1 tablet Lyrica [facility] [address]-06 100 MG Three times a day Dec 16, 2014 1 capsule by Oral route 1 time per day Bactrim DS [facility] [address]-28 800-160 MG Orally Twice a day MayJune 13, 2016 1 tablet Thioridazine HCl [facility] [address]-26 25 MG Orally Twice a day 2 tablets Tramadol HCl [facility] [address]-43 50 MG Orally 3 times a day Jul 17 15 1 tablet as needed Baclofen [facility] 32833342391 10 TAKE 1 TABL ET BY MOUTH THREE TIMES DAILY NEEDED Procedures Procedure Coding System Code Date Office Visit, Est Pt., Level 2 CPT-4 98814 J [facility] 2015 [facility] VISIT ESTABLISHED PATIENT CPT-4 G0467 J juice 2015 Vital Signs Date/Time: June 10, 2016 Cardiac Monitoring Heart Rate 92 bpm Weight 213.2 lbs Height 73 in Blood Pressure Diastolic 70 mmHg Blood Pressure Systolic 110 mmHg Results No Known Results Summary Purpose eClinicalWorks Submission
--- OUTSIDE RECORDS SUMMARY | 2020-06-11 21:03 | XMS REPORT ---
Author Author Jd ROBLEDO Organization [facility] Address [address] [place] [address] Care Team Providers Care Childcare Center Administrator Name Role Phone PAULA ROBLEDO Unavailable PROBLEMS Type Condition ICD9-CM Code [id number] Code Onset Dates Condition S tatus SNOMED Code Problem Raynauds disease I73.00 Active 195 953336 Problem Venous insufficiency I87.2 Active 57685638 Assessment Dermatitis L30.9 Sep, Active 58067 000 ALLERGIES Substance Reaction Event Type Date Status N.K.D.A. Unknown Non Drug Allergy Sep, Unknown SOCIAL HISTORY No smoking Hx information available PLAN OF CARE VITAL SIGNS Height 73 in 2016-10-10 Weight 213 lbs 2016-10-10 Heart Rate 68 bpm 2016-10-10 Respiratory Rate 20 2016-10-10 BMI 28.10 kg/m2 2016-10-10 Blood pressure systolic 124 mmHg 2016-10-10 Blood pressure diastolic 84 mmHg 2016-10-10 MEDICATIONS Medication Instructions Dosage Frequency Start Date End Date Duration S tatus Klor-Con 10 10 MEQ Orally Once a day 1 tablet with food 24h Nov, Active PredniSONE 20 mg Orally Once a day 2 tablet 24h Sep, Sep, 07 days Active Nisoldipine ER 34 MG 1 TABLET BY ORAL ROUTE 1 TIME PER DAY Active Baclofen 10 TAKE 1 TABLET BY MOUTH THREE TIMES DAILY NEEDED 6 Active Lexapro 10 mg take 1 tablet by Ora l route 1 time per day (with the 20 mg for total 30 mg dose) March, Active Lyrica 100 MG 1 capsule by Oral route 1 time per day 8h Nov, Active RESULTS No Results PROCEDURES Procedure Date Ordered Related Diagnosis Body Site [facility] VISIT ESTABLISHED PATIENT Oct 10, 2016 Office Visit, Est Pt., Level 3 Oct 10, 2016 IMMUNIZATIONS No Known Immunizations
--- OUTSIDE RECORDS SUMMARY | 2020-06-11 21:03 | XMS REPORT ---
Author Author Jd ROBLEDO Organization [facility] Address [address] [place] [address] Care Team Providers Care Account Clerk Name Role Phone PAULA ROBLEDO Unavailable PROBLEMS Type Condition ICD9-CM Code [id number] Code Onset Dates Condition S tatus SNOMED Code Problem Low back pain M54.5 Active 879346 009 Problem Other chronic pain G89.29 Active 8 1807920 Problem Venous insufficiency I87.2 Active 72265871 Problem Raynauds disease I73.00 Active 195 600700 ALLERGIES No Known Allergies SOCIAL HISTORY Never Assessed PLAN OF CARE Activity Details Follow Up 3 Months Reason: VITAL SIGNS Height 73 in 2017-01-06 Weight 211.5 lbs 2017-01-06 Temperature 97.8 degrees Fahrenheit 2017-01-06 Heart Rate 78 bpm 2017-01-06 Respiratory Rate 20 2017-01-06 BMI 27.90 kg/m2 2017-01-06 Blood pressure systolic 122 mmHg 2017-01-06 Blood pressure diastolic 78 mmHg 2017-01-06 MEDICATIONS Medication Instructions Dosage Frequency Start Date [...] for total 30 mg dose) March, Active Furosemide 20 MG Orally Once a day 1 tablet 24h Active Klor-Con 10 10 MEQ Orally Once a day 1 tablet with food 24h Nov, Active Potassium & Magnesium Aspartat 250-250 MG Orally Once a day 1 capsule with a meal 24h Active Mobic 7.5 MG Orally 2 times a day 1 tablet 12h Nov, Jan, 30 day(s) Active Lyrica 100 MG 1 capsule by Oral route 1 time per day 8h Nov, Active RESULTS No Results PROCEDURES Procedure Date Ordered Result Body Site [facility] VISIT ESTABLISHED PATIENT Jan 06, 2017 IMMUNIZATIONS No Known Immunizations MEDICAL (GENERAL) HISTORY Type Description Date Medical History Hearing loss congenital deafness Medical History 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
--- OUTSIDE RECORDS SUMMARY | 2020-06-11 21:03 | XMS REPORT ---
Author Author Jd ROBLEDO [facility] eClinicalWorks Address Unknown Phone Unavailable Care Team Providers Care Biology Internship Name Role Phone PAULA ROBLEDO Unavailable Allergies, Adverse Reactions, Alerts Substance Reaction Event Type N.K.D.A. Info Not Available Non Drug Allergy Problems Problem Type Condition Code Onset Dates Condition Statu s Assessment Routine adult health maintenance Z00.00 Active Problem Venous insufficiency I87.2 Active Problem Unspecified arthropathy, site unspecified 716.90 Active Problem Raynauds disease I73.00 Active Assessment Leg cramps R25.2 Active Assessment Venous insufficiency I87.2 Active Problem Ulcer of lower limb, unspecified 707.10 Active Assessment Raynauds disease I73.00 Active Medications Medication Code System Code Instructions Start Date End Date Status Dosage Lyrica [facility] [address]-28 100 MG Three times a day Dec 16, 2014 1 capsule by Oral route 1 time per day Antabuse [facility] [address]-04 500 mg April 07, 2014 geovany e 1 tablet (500 mg) by oral route once daily Mobic [facility] [address]-79 15 mg Jan 05, 2015 take 1 Tablet by Oral route 1 time per day pc Baclofen [facility] 10447390007 10 TAKE 1 TABL ET BY MOUTH THREE TIMES DAILY NEEDED Levitra [facility] [address]-13 20 mg February 05, 2013 1 t ablet by Oral route 1 time per day PRN Lomotil [facility] [address]-23 0.025 mg-2.5 mg 2 tab(s) o rally 3 times a day January 31, 2014 2 tablet by Oral rou te 3 times per day PRN Phenergan [facility] [address]-87 25 mg Jul 28, 2014 1 tablet by Oral route every 4 hours PRN nausea Flexeril [facility] 0 10 mg Nov 01, 2014 1 tablet b y Oral route 1 time per day PRN hs Tramadol HCl [facility] [address]-98 50 MG Orally 3 times a day Jul 17 15 1 tablet as needed Procedures Procedure Coding System Code Date Office Visit, Est Pt., Level 3 CPT-4 88626 Joan serrato 2015 [facility] VISIT ESTABLISHED PATIENT CPT-4 G0467 Joan serrato 2015 Vital Signs Date/Time: Nov 28, 2015 Temperature 97.2 F Weight 197 lbs Height 73 in BMI 25.99 Index Blood Pressure Diastolic 80 mmHg Blood Pressure Systolic 112 mmHg Cardiac Monitoring Heart Rate 76 bpm Results No Known Results Summary Purpose eClinicalWorks Submission
--- OUTSIDE RECORDS SUMMARY | 2020-06-11 21:03 | XMS REPORT ---
Author Author Jd BANEGAS Organization [facility] Address [address] [place] [address] Care Team Providers Care Quality Systems Technician Name Role Phone WALKER BANEGAS Unavailable PROBLEMS Type Condition ICD9-CM Code LVP82-LM Code Onset Dates Condition S tatus SNOMED Code Problem Low back pain M54.5 Active 401488 009 Problem Other chronic pain G89.29 Active 8 5304425 Problem Venous insufficiency I87.2 Active 72547089 Problem Raynauds disease I73.00 Active 195 191451 ALLERGIES No Known Allergies SOCIAL HISTORY Never Assessed PLAN OF CARE Activity Details Follow Up prn Reason: VITAL SIGNS Height 73 in 2016-10-06 Weight 213.4 lbs 2016-10-06 Temperature 97.5 degrees Fahrenheit 2016-10-06 Heart Rate 80 bpm 2016-10-06 Respiratory Rate 20 2016-10-06 BMI 28.15 kg/m2 2016-10-06 Blood pressure systolic 120 mmHg 2016-10-06 Blood pressure diastolic 74 mmHg 2016-10-06 MEDICATIONS Medication Instructions Dosage Frequency Start Date End Date Duration S tatus Vistaril 25 MG Orally every 8 hrs 1 capsule as needed 8h Sep, 16 07 days Active Permethrin 5 % Externally Once a day apply from the [facility] k down, leave on 8-10 hours then wash off in shower 24h Sep, 1 dose Active Lyrica 100 MG 1 capsule by Oral route 1 time per day 8h Nov, Active Lexapro 10 mg take 1 tablet by Ora l route 1 time per day (with the 20 mg for total 30 mg dose) March, Active Baclofen 10 TAKE 1 TABLET BY MOUTH THREE TIMES DAILY NEEDED 6 Active Klor-Con 10 10 MEQ Orally Once a day 1 tablet with food 24h Nov, Active Nisoldipine ER 34 MG 1 TABLET BY ORAL ROUTE 1 TIME PER DAY Active Tramadol HCl 50 MG Orally 3 times a day 1 tablet as needed 8h 24 Au g, 2015 Active Lyrica 100 TAKE 1 CAPSULE BY MOUTH THREE TIMES DAILY 30 Active RESULTS No Results PROCEDURES Procedure Date Ordered Result Body Site [facility] VISIT ESTABLISHED PATIENT Oct 06, 2016 IMMUNIZATIONS No Known Immunizations MEDICAL (GENERAL) HISTORY Type Description Date Medical History Hearing loss congenital deafness Medical History 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
--- OUTSIDE RECORDS SUMMARY | 2020-06-11 21:03 | XMS REPORT ---
Author Author Jd ROBLEDO [facility] eClinicalWorks Address Unknown Phone Unavailable Care Team Providers Care Precipitator Operator Name Role Phone PAULA ROBLEDO Unavailable Allergies, Adverse Reactions, Alerts Substance Reaction Event Type N.K.D.A. Info Not Available Non Drug Allergy Problems Problem Type Condition Code Onset Dates Condition Statu s Problem Venous insufficiency I87.2 Active Assessment Skin infection L08.9 Active Problem Raynauds disease I73.00 Active Medications Medication Code System Code Instructions Start Date End Date Status Dosage Baclofen [facility] 93941525999 10 TAKE 1 TABL ET BY MOUTH THREE TIMES DAILY NEEDED Disulfiram [facility] [address]-65 250 MG Orally Once a day 1 tablet Thioridazine HCl [facility] [address]-51 25 MG Orally Twice a day 2 tablets Bactrim DS [facility] [address]-31 800-160 MG Orally Twice a day MayJune 13, 2016 1 tablet Lyrica [facility] [address]-06 100 MG Three times a day Dec 16, 2014 1 capsule by Oral route 1 time per day Tramadol HCl [facility] [address]-49 50 MG Orally 3 times a day Jul 17 15 1 tablet as needed Klor-Con 10 [facility] [address]-21 10 MEQ Orally Once a day Dec 01, 2015 1 tablet with food Nisoldipine ER [facility] 68772667654 34 MG 1 TAB LET BY ORAL ROUTE 1 TIME PER DAY Procedures Procedure Coding System Code Date [facility] VISIT ESTABLISHED PATIENT CPT-4 G0467 J 2015 Office Visit, Est Pt., Level 3 CPT-4 96592 J [facility] NOBLL May VENIPUNCT, ROUTINE* CPT-4 07749 June 03 6 Vital Signs Date/Time: June 03, 2016 Cardiac Monitoring Heart Rate 96 bpm Weight 209.4 lbs Height 73 in Blood Pressure Diastolic 82 mmHg Blood Pressure Systolic 118 mmHg Results No Known Results Summary Purpose eClinicalWorks Submission
--- OUTSIDE RECORDS SUMMARY | 2020-06-11 21:03 | XMS REPORT ---
Author Author Jd BOUDREAUX Organization [facility] Address [address] [place] [address] Care Team Providers Care Process Improvement Analyst Name Role Phone YENNIFER BOUDREAUX Unavailable PROBLEMS Type Condition ICD9-CM Code [id number] Code Onset Dates Condition S tatus SNOMED Code Problem Low back pain M54.5 Active 136816 009 Problem Other chronic pain G89.29 Active 8 8788205 Problem Venous insufficiency I87.2 Active 32848125 Problem Raynauds disease I73.00 Active 195 121653 ALLERGIES Substance Reaction Event Type Date Status N.K.D.A. Unknown Non Drug Allergy Nov, Unknown SOCIAL HISTORY No smoking Hx information available PLAN OF CARE Activity Details Follow Up prn Reason: VITAL SIGNS Height 73 in 2016-12-10 Weight 210 lbs 2016-12-10 Temperature 98.0 degrees Fahrenheit 2016-12-10 Heart Rate 80 bpm 2016-12-10 Respiratory Rate 20 2016-12-10 BMI 27.70 kg/m2 2016-12-10 Blood pressure systolic 100 mmHg 2016-12-10 Blood pressure diastolic 70 mmHg 2016-12-10 MEDICATIONS Medication Instructions Dosage Frequency Start Date End Date Duration S tatus Klor-Con 10 10 MEQ Orally Once a day 1 tablet with food 24h Nov, Active Lexapro 10 mg take 1 tablet by Ora l route 1 time per day (with the 20 mg for total 30 mg dose) March, Active Potassium & Magnesium Aspartat 250-250 MG Orally Once a day 1 capsule with a meal 24h Active Nisoldipine ER 34 MG 1 TABLET BY ORAL ROUTE 1 TIME PER DAY Active Baclofen 10 TAKE 1 TABLET BY MOUTH THREE TIMES DAILY NEEDED 6 Active Lyrica 100 MG 1 capsule by Oral route 1 time per day 8h Nov, Active Furosemide 20 MG Orally Once a day 1 tablet 24h Active RESULTS No Results PROCEDURES Procedure Date Ordered Related Diagnosis Body Site [facility] VISIT ESTABLISHED PATIENT Dec 10, 2016 Office Visit, Est Pt., Level 3 Dec 10, 2016 IMMUNIZATIONS No Known Immunizations
--- OUTSIDE RECORDS SUMMARY | 2020-06-11 21:04 | XMS REPORT ---
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 Care Lode Miner Blasting Name Role Phone PAULA ROBLEDO Unavailable Allergies No Known Allergies Problems Problem Type Condition Code Onset Dates Condition Statu s Problem Venous insufficiency I87.2 Active Problem Unspecified arthropathy, site unspecified 716.90 Active Problem Raynauds disease I73.00 Active Problem Ulcer of lower limb, unspecified 707.10 Active Medications Medication Code System Code Instructions Start Date End Date Status Dosage Thioridazine HCl [facility] [address]-08 25 MG Orally Twice a day 2 tablets Nisoldipine ER [facility] [address]-11 34 MG Orally Once a day 1 tablet on an empty stomach Lyrica [facility] [address]-02 100 MG Three times a day Dec 16, 2014 1 capsule by Oral route 1 time per day Disulfiram [facility] [address]-88 250 MG Orally Once a day 1 tablet Tramadol HCl [facility] [address]-03 50 MG Orally 3 times a day Jul 17 15 1 tablet as needed Baclofen [facility] 87111954241 10 TAKE 1 TABL ET BY MOUTH THREE TIMES DAILY NEEDED Results No Known Results Summary Purpose eClinicalWorks Submission
--- OUTSIDE RECORDS SUMMARY | 2020-06-11 21:04 | XMS REPORT ---
Author Author Jd BOUDREAUX [facility] Address [address] [place] [address] Care Team Providers Care Cassandra Developer Name Role Phone YENNIFER BOUDREAUX Unavailable PROBLEMS Type Condition ICD9-CM Code [id number] Code Onset Dates Condition S tatus SNOMED Code Problem Low back pain M54.5 Active 246120 009 Problem Other chronic pain G89.29 Active 8 4805070 Problem Venous insufficiency I87.2 Active 96172497 Problem Raynauds disease I73.00 Active 195 297944 ALLERGIES Unknown Allergies SOCIAL HISTORY No smoking Hx information available PLAN OF CARE VITAL SIGNS MEDICATIONS Medication Instructions Dosage Frequency Start Date End Date Duration S tatus Mobic 7.5 MG Orally 2 times a day 1 tablet 12h Nov, Jan, 30 day(s) Active RESULTS No Results PROCEDURES No Known procedures IMMUNIZATIONS No Known Immunizations
--- OUTSIDE RECORDS SUMMARY | 2020-06-11 21:04 | XMS REPORT ---
Author Jd Cantu [facility] eClinicalWorks Address Unknown Phone Unavailable Care Team Providers Care Police Liaison Officer Name Role Phone PAULA ROBLEDO CP Unavailable Allergies, Adverse Reactions, Alerts Substance Reaction Event Type N.K.D.A. Info Not Available Non Drug Allergy Problems Problem Type Condition ICD-9 Code Onset Dates Condition Statu s Problem Cramp of limb 729.82 Active Assessment Raynauds disease 443.0 Active Problem Abdominal pain, other specified site 789.09 Active Assessment Venous insufficiency 459.81 Active Problem Unspecified local infection of skin and subcutaneous t issue 686.9 Active Problem Other abnormal glucose 790.29 Activ e Problem Personal history of alcoholism V11.3 Active Problem Unspecified conjunctivitis 372.30 A ctive Problem Other and unspecified noninfectious gastroenteritis an d colitis 558.9 Active Problem Diarrhea 787.91 Active Problem Chronic fatigue syndrome 780.71 Act ira Problem Loss of weight 783.21 Active Problem Ulcer of lower limb, unspecified 707.10 Active Problem Muscle weakness (generalized) 728.87 Active [...] Unspecified disease of nail 703.9 Active Problem Need for prophylactic vaccination and inoculation, Inf luenza V04.81 Active Medications Medication Code System Code Instructions Start Date End Date Status Dosage Lomotil [facility] [address]-16 0.025 mg-2.5 mg 2 tab(s) o rally 3 times a day January 31, 2014 2 tablet by Oral rou te 3 times per day PRN Lyrica [facility] [address]-25 100 MG Three times a day Dec 16, 2014 1 capsule by Oral route 1 time per day Flexeril [facility] 0 10 mg Nov 01, 2014 1 tablet b y Oral route 1 time per day PRN hs Levitra [facility] [address]-26 20 mg February 05, 2013 1 t ablet by Oral route 1 time per day PRN Antabuse [facility] [address]-27 500 mg April 07, 2014 geovany e 1 tablet (500 mg) by oral route once daily Tramadol HCl [facility] [address]-20 50 MG Orally 3 times a day Jul 17 1 tablet as needed Mobic [facility] [address]-63 15 mg Jan 05, 2015 take 1 Tablet by Oral route 1 time per day pc Phenergan [facility] [address]-37 25 mg Jul 28, 2014 1 tablet by Oral route every 4 hours PRN nausea Baclofen [facility] 29995400148 10 TAKE 1 TABL ET BY MOUTH THREE TIMES DAILY NEEDED Procedures Procedure Coding System Code Date VENIPUNCT, ROUTINE* CPT-4 28965 Jul 17, 2015 Office Visit, Est Pt., Level 3 CPT-4 18159 A 2014 BASIC METABOLIC PANEL CPT-4 20962 Jul 17 Vital Signs Date/Time: Jul 17, 2015 Temperature 97.7 F Weight 212.6 lbs Height 73 in BMI 28.05 Index Blood Pressure Diastolic 88 mmHg Blood Pressure Systolic 120 mmHg Cardiac Monitoring Heart Rate 100 bpm Results Name Result Date Reference Range Unit Abnormali ty Flag ROUTINE VENIPUNCTURE BMP Summary Purpose eClinicalWorks Submission
--- OUTSIDE RECORDS SUMMARY | 2020-06-11 21:04 | XMS REPORT ---
Author Author Jd ROBLEDO Organization [facility] Address [address] [place] [address] Care Team Providers Care Side Framer Name Role Phone PAULA ROBLEDO Unavailable PROBLEMS Type Condition ICD9-CM Code JBG19-UV Code Onset Dates Condition S tatus SNOMED Code Problem Congenital deafness H90.5 Active 23869618 Problem Low back pain M54.5 Active 852181 009 Problem Raynauds disease I73.00 Active 195 915684 Problem Other chronic pain G89.29 Active 8 0664076 Problem Venous insufficiency I87.2 Active [id number] ALLERGIES No Information ENCOUNTERS Encounter Location Date Diagnosis [place] [address] [address] 10 Sep, 2017 Hyperglycemia R73.9 [place] [address] [address] Sep, Hyperglycemia R73.9 [place] [address] [address] 06 Sep, 2017 Raynauds disease I73.00 ; Ve nous insufficiency I87.2 and Encounter for immunization Z23 [place] [address] [address] [place] [id number] [place] [address] Jun, [place] [address] [place] [id number] [address] [place] [address] May, [place] [address] [address] May, Other chronic pain G89.29 [place] [address] [address] May, Raynauds disease I73.00 ; Ve nous insufficiency I87.2 and Low back pain M54.5 [facility] [address] [place] [id number] [address] [place] [address] 13 Dec, 2016 Raynauds disease I73.00 ; Ve nous insufficiency I87.2 ; Low back pain M54.5 and Other chronic pain G89.29 [facility] [address] [place] [id number] [address] [place] [address] Nov, [facility] [address] [place] [id number] [place] [address] Nov, Muscle spasm M62.838 [facility] [address] [place] [id number] [place] [address] Nov, [facility] [address] [place] [id number] [place] [address] Oct, Folliculitis L73.9 and Venou s insufficiency I87.2 [facility] [address] [address] Sep, Dermatitis L30.9 and Raynaud s disease I73.00 [facility] [address] [place] [id number] [place] [address] Sep, Rash and nonspecific skin er uption R21 [facility] [address] [address] Aug, Skin infection L08.9 [facility] [address] [place] [id number] [address] [place] [address] May, Infected smith L08.9 [facility] [address] [place] [id number] [address] [place] [address] May, Skin infection L08.9 [facility] [address] [place] [id number] [address] [place] [address] 05 Dec, 2015 [facility] [address] [address] Nov, [facility] [address] [id number] [address] [place] [address] Nov, [facility] [address] [facility] [id number] [address] [place] [address] Nov, Raynauds disease I73.00 [facility] [address] [facility] [id number] [address] [place] [address] Nov, Raynauds disease I73.00 ; Le g cramps R25.2 ; Venous insufficiency I87.2 and Routine adult health maintenance Z00.00 [facility] [address] [facility] [id number] [address] [place] [address] Jul, Infected sebaceous cyst 706. 2 [facility] [address] [id number] [address] [place] [address] Jun, [facility] [address] [facility] [id number] [address] [place] [address] Jun, [facility] [address] [id number] [address] [place] [address] Jun, Venous insufficiency 459.81 and Raynauds disease 443.0 [facility] [address] [facility] [id number] [address] [place] [address] Feb, [facility] [address] [facility] [id number] [address] [place] [address] Feb, [facility] [address] [facility] [id number] [address] [place] [address] Jan, [facility] [address] [facility] [id number] [address] [place] [address] Jan, [facility] [address] [facility] [id number] [address] [place] [address] Dec, [facility] [address] [facility] [id number] [address] [place] [address] Dec, [facility] [address] [id number] [address] [place] [address], [place] [address] Dec, [facility] [address] [id number] [address] [place] [address], [place] [address] Dec, [facility] [address] [id number] [address] [place] [address], [place] [address] Nov, [facility] [address] [id number] [address] [place] [address], [place] [address] Nov, [facility] [address] [id number] [address] [place] [address], [place] [address] Oct, [facility] [address] [id number] [address] [place] [address], [place] [address] Oct, [facility] [address] [id number] [address] [place] [address], [place] [address] Aug, [facility] [address] [id number] [address] [place] [address], [place] [address] Aug, [facility] [address] [id number] [address] [place] [address], [place] [address] Aug, [facility] [address] [id number] [address] [place] [address], [place] [address] Jul, [facility] [address] [id number] [address] [place] [address], [place] [address] Jul, [facility] [address] [id number] [address] [place] [address], [place] [address] Jul, [facility] [address] [id number] [address] [place] [address], [place] [address] Jul, [facility] [address] [id number] [address] [place] [address], [place] [address] Jun, [facility] [address] [id number] [address] [place] [address], [place] [address] Jun, [facility] [address] [id number] [address] [place] [address], [place] [address] Jun, [facility] [address] [id number] [address] [place] [address], [place] [address] Jun, [facility] [address] [id number] [address] [place] [address], [place] [address] May, [facility] [address] [id number] [address] [place] [address], [place] [address] May, [facility] [address] [id number] [address] [place] [address], [place] [address] May, [facility] [address] [id number] [address] [place] [address], [place] [address] May, [facility] [address] [id number] [address] [place] [address], [place] [address] May, [facility] [address] [id number] [address] [place] [address], [place] [address] May, [facility] [address] [id number] [address] [place] [address], [place] [address] May, [facility] [address] [id number] [address] [place] [address], [place] [address] Apr, [facility] [address] [id number] [address] [place] [address], [place] [address] Apr, [facility] [address] [id number] [address] [place] [address], [place] [address] Apr, [facility] [address] [id number] [address] [place] [address], [place] [address] Apr, [facility] [address] [id number] [address] [place] [address], [place] [address] March, [facility] [address] [id number] [address] [place] [address], [place] [address] March, [facility] [address] [id number] [address] [place] [address], [place] [address] March, [facility] [address] [id number] [address] [place] [address], [place] [address] March, [facility] [address] [id number] [address] [place] [address], [place] [address] March, [facility] [address] [id number] [address] [place] [address], [place] [address] March, [facility] [address] [id number] [address] [place] [address], [place] [address] March, [facility] [address] [id number] [address] [place] [address], [place] [address] Feb, [facility] [address] [id number] [address] [place] [address], [place] [address] Feb, [facility] [address] [place] [id number] Feb, [facility] [address] [id number] [address] [place] [address], [place] [address] Feb, [facility] [address] [id number] [address] [place] [address], [place] [address] Feb, [facility] [address] [id number] [address] [place] [address], [place] [address] Feb, [facility] [address] [id number] [address] [place] [address], [place] [address] Jan, [facility] [address] [id number] [address] [place] [address], [place] [address] Jan, [facility] [address] [id number] [address] [place] [address], [place] [address] Jan, [facility] [address] [id number] [address] [place] [address], [place] [address] Jan, [facility] [address] [id number] [address] [place] [address], [place] [address] Jan, [facility] [address] [id number] [address] [place] [address], [place] [address] Jan, [facility] [address] [id number] [address] [place] [address] Jan, [facility] [address] [id number] [facility] [place] [address] Jan, [facility] [address] [id number] [address] [place] [address], [place] [address] Jan, [facility] [address] [id number] [address] [place] [address], [place] [address] Jan, [facility] [address] [id number] [address] [place] [address], [place] [address] Jan, [facility] [address] [id number] [address] [place] [address], [place] [address] Jan, [facility] [address] [id number] [address] [place] [address], [place] [address] Jan, [facility] [address] [id number] [address] [place] [address], [place] [address] Jan, [facility] [address] [id number] [address] [place] [address], [place] [address] Jan, [facility] [address] [id number] [address] [place] [address], [place] [address] Jan, [facility] [address] [id number] [address] [place] [address], [place] [address] Jan, [facility] [address] [id number] [address] [place] [address], [place] [address] Jan, [facility] [address] [id number] [address] [place] [address], [place] [address] Dec, [facility] [address] [id number] [address] [place] [address], [place] [address] Dec, [facility] [address] [id number] [address] [place] [address], [place] [address] Dec, [facility] [address] [id number] [address] [place] [address], [place] [address] Dec, [facility] [address] [id number] [address] [place] [address], [place] [address] 14 Dec, 2013 [facility] [address] [id number] [address] [place] [address], [place] [address] Dec, [facility] [address] [id number] [address] [place] [address], [place] [address] Dec, [facility] [address] [id number] [address] [place] [address], [place] [address] Dec, [facility] [address] [id number] [address] [place] [address], [place] [address] Dec, [facility] [address] [id number] [address] [place] [address], [place] [address] Dec, [facility] [address] [id number] [address] [place] [address], [place] [address] Dec, [facility] [address] [id number] [address] [place] [address], [place] [address] Dec, [facility] [address] [id number] [address] [place] [address], [place] [address] Nov, [facility] [address] [id number] [address] [place] [address], [place] [address] Nov, [facility] [address] [id number] [address] [place] [address], [place] [address] Nov, [facility] [address] [id number] [address] [place] [address], [place] [address] Nov, [facility] [address] [id number] [address] [place] [address], [place] [address] Nov, [facility] [address] [id number] [address] [place] [address], [place] [address] Nov, [facility] [address] [id number] [address] [place] [address], [place] [address] Nov, [facility] [address] [id number] [address] [place] [address], [place] [address] Oct, [facility] [address] [id number] [address] [place] [address], [place] [address] Oct, [facility] [address] [id number] [address] [place] [address], [place] [address] Sep, [facility] [address] [id number] [address] [place] [address], [place] [address] Sep, [facility] [address] [id number] [address] [place] [address], [place] [address] Sep, [facility] [address] [id number] [address] [place] [address], [place] [address] Sep, [facility] [address] [id number] [address] [place] [address], [place] [address] Aug, [facility] [address] [id number] [address] [place] [address], [place] [address] Aug, [facility] [address] [id number] [address] [place] [address], [place] [address] Aug, [facility] [address] [id number] [address] [place] [address], [place] [address] Jul, [facility] [address] [id number] [address] [place] [address], [place] [address] Jul, [facility] [address] [id number] [address] [place] [address], [place] [address] Jun, [facility] [address] [id number] [address] [place] [address], [place] [address] Jun, [facility] [address] [id number] [address] [place] [address], [place] [address] Jun, [facility] [address] [id number] [address] [place] [address], [place] [address] May, [facility] [address] [id number] [address] [place] [address], [place] [address] May, [facility] [address] [id number] [address] [place] [address], [place] [address] May, [facility] [address] [id number] [address] [place] [address], [place] [address] Apr, [facility] [address] [id number] [address] [place] [address], [place] [address] Apr, [facility] [address] [id number] [address] [place] [address], [place] [address] March, [facility] [address] [id number] [address] [place] [address], [place] [address] Feb, [facility] [address] [id number] [address] [place] [address], [place] [address] Jan, [facility] [address] [id number] [address] [place] [address], [place] [address] Jan, [facility] [address] [id number] [address] [place] [address], [place] [address] Dec, [facility] [address] [id number] [address] [place] [address], [place] [address] Nov, [facility] [address] [id number] [address] [place] [address], [place] [address] Oct, [facility] [address] [id number] [address] [place] [address], [place] [address] Oct, [facility] [address] [id number] [address] [place] [address], [place] [address] Sep, [facility] [address] [id number] [address] [place] [address], [place] [address] Sep, [facility] [address] [id number] [address] [place] [address], [place] [address] Sep, [facility] [address] [id number] [address] [place] [address], [place] [address] Sep, [facility] [address] [id number] [address] [place] [address], [place] [address] 13 Sep, 2012 [facility] [address] [id number] [address] [place] [address], [place] [address] 13 Sep, 2012 [facility] [address] [id number] [address] [place] [address], [place] [address] Sep, [facility] [address] [id number] [address] [place] [address], [place] [address] Sep, [facility] [address] [id number] [address] [place] [address], [place] [address] 04 Jul, 2012 [facility] [address] [id number] [address] [place] [address], [place] [address] 30 Jun, 2012 [facility] [address] [id number] [address] [place] [address], [place] [address] Jun, [facility] [address] [id number] [address] [place] [address], [place] [address] Jun, [facility] [address] [id number] [address] [place] [address], [place] [address] Jun, [facility] [address] [id number] [address] [place] [address], [place] [address] May, [facility] [address] [id number] [address] [place] [address], [place] [address] Apr, [facility] [address] [id number] [address] [place] [address], [place] [address] Jan, [facility] [address] [id number] [address] [place] [address], [place] [address] 14 Dec, 2011 [facility] [address] [id number] [address] [place] [address], [place] [address] Dec, [facility] [address] [id number] [address] [place] [address], [place] [address] Nov, [facility] [address] [id number] [address] [place] [address], [place] [address] Oct, [facility] [address] [id number] [address] [place] [address], [place] [address] 19 Oct, 2011 [facility] [address] [id number] [address] [place] [address], [place] [address] 18 Aug, 2011 [facility] [address] [id number] [address] [place] [address], [place] [address] 18 Aug, 2011 [facility] [address] [id number] [address] [place] [address], [place] [address] 18 Aug, 2011 [facility] [address] [id number] [address] [place] [address], [place] [address] 14 Aug, 2011 [facility] [address] [id number] [address] [place] [address], [place] [address] 11 Aug, 2011 [facility] [address] [id number] [address] [place] [address], [place] [address] 11 Aug, 2011 [facility] [address] [id number] [address] [place] [address], [place] [address] 19 May, 2011 [facility] [address] [id number] [address] [place] [address], [place] [address] 13 Apr, 2011 [facility] [address] [id number] [address] [place] [address], [place] [address] 18 Feb, 2011 [facility] [address] [id number] [address] [place] [address], [place] [address] 28 Oct, 2010 [facility] [address] [id number] [address] [place] [address], [place] [address] 21 Oct, 2010 [facility] [address] [id number] [address] [place] [address], [place] [address] 07 Oct, 2010 [facility] [address] [id number] [address] [place] [address], [place] [address] 09 Sep, 2010 [facility] [address] [id number] [address] [place] [address], [place] [address] 26 Aug, 2010 [facility] [address] [id number] [address] [place] [address], [place] [address] 16 Jul, 2010 [facility] [address] [id number] [address] [place] [id number] 13 May, 2010 [facility] [address] [id number] [address] [place] [id number] 19 Dec, 2009 [facility] [address] [id number] [address] [place] [id number] Nov, [facility] [address] [id number] [address] [place] [id number] Oct, [facility] [address] [id number] [address] [place] [id number] Sep, [facility] [address] [id number] [address] [place] [id number] Sep, [facility] [address] [id number] [address] [place] [phone] Jul, [facility] [address] [id number] [address] [place] [phone] Jun, [facility] [address] [id number] [address] [place] [phone] May, IMMUNIZATIONS No Known Immunizations SOCIAL HISTORY Never Assessed REASON FOR VISIT [facility] PLAN OF CARE VITAL SIGNS MEDICATIONS Unknown [...]
--- OUTSIDE RECORDS SUMMARY | 2020-06-11 21:04 | XMS REPORT ---
Author Author Jd ROBLEDO [facility] Address [address] [place] [address] Care Team Providers Care Tax Assistant Name Role Phone PAULA ROBLEDO Unavailable PROBLEMS Type Condition ICD9-CM Code [id number] Code Onset Dates Condition S tatus SNOMED Code Problem Low back pain M54.5 Active 633093 009 Problem Other chronic pain G89.29 Active 8 5920279 Problem Venous insufficiency I87.2 Active 12434515 Problem Raynauds disease I73.00 Active 195 [id number] ALLERGIES Unknown Allergies SOCIAL HISTORY No smoking Hx information available PLAN OF CARE VITAL SIGNS MEDICATIONS Unknown Medications RESULTS No Results PROCEDURES No Known procedures IMMUNIZATIONS No Known Immunizations
--- OUTSIDE RECORDS SUMMARY | 2020-06-11 21:05 | XMS REPORT | Continuity of Care Document ---
Demographics Preferred Language Unknown Marital Status Unknown Holiness Affiliation Unknown Race Unknown Ethnic Group Unknown Author Organization Unknown Address Unknown Phone Unavailable Allergies Active Description Code Type Severity Reaction Onset Reported/Identified Relationship to Patient Clinical Status Yes No Known Drug Allergies [id number] Drug Allergy Unknown N/A 12/07/2007 Yes NKANo Known Allergies NKA Miscellaneous Allergy Mild N/A 04/22/2009 Medications There is no data. Problems Date Dx Coded Attending Type Code Diagnosis Diagnosed By 06/05/2009 PAULA ROBLEDO MD.9 CELLULITIS 06/05/2009 PAULA ROBLEDO MD.9 CELLULITIS 06/05/2009 682.9 CELL ULITIS 06/05/2009 682.9 CELL ULITIS 06/05/2009 682.9 CELL ULITIS 06/05/2009 NIRMAL VILLAVICENCIO APRN 682.9 CELLULITIS 06/05/2009 NIRMAL VILLAVICENCIO APRN 682.9 CELLULITIS 06/05/2009 MAJOR MILLIGAN DO 682.9 CELLULITIS 06/05/2009 PAULA ROBLEDO MD2.9 CELLULITIS 06/05/2009 PAULA ROBLEDO MD 682.9 CELLULITIS 06/05/2009 PAULA ROBLEDO MD 682.9 CELLULITIS 06/05/2009 PAULA ROBLEDO MD 682.9 CELLULITIS 06/05/2009 PAULA ROBLEDO MD.9 CELLULITIS 06/05/2009 PAULA ROBLEDO MD.9 CELLULITIS 06/05/2009 PAULA ROBLEDO MD 682.9 CELLULITIS 06/05/2009 MEENA BLAIR, PAULA Hua2.9 CELLULITIS 06/05/2009 PAULA ROBLEDO MD.9 CELLULITIS 06/05/2009 MAJOR MILLIGAN DO 682.9 CELLULITIS 06/05/2009 PAULA ROBLEDO MD 682.9 CELLULITIS 06/05/2009 DUC ANDRE APRN 682 .9 CELLULITIS 06/05/2009 PAULA ROBLEDO MD2.9 CELLULITIS 06/05/2009 PAULA ROBLEDO MD.9 CELLULITIS 06/05/2009 MEENA BLAIR, PAULA 682.9 CELLULITIS 06/05/2009 MEENA BLAIR, PAULA 682.9 CELLULITIS 06/05/2009 MEENA BLAIR, PAULA 682.9 CELLULITIS 06/05/2009 MEENA BLAIR, PAULA 682.9 CELLULITIS 06/05/2009 MEENA BLAIR, PAULA 682.9 CELLULITIS 06/05/2009 MEENA BLAIR, PAULA 682.9 CELLULITIS 06/05/2009 MEENA BLAIR, PAULA 682.9 CELLULITIS 06/05/2009 MEENA BLAIR, PAULA 682.9 CELLULITIS 07/10/2009 PAULA ROBLEDO MD9.5 Foot Pain (soft Tissue) 07/10/2009 PAULA ROBLEDO MD.5 Foot Pain (soft Tissue) 07/10/2009 729.5 Foot Pain (soft Tissue) 07/10/2009 729.5 Foot Pain (soft Tissue) 07/10/2009 729.5 Foot Pain (soft Tissue) 07/10/2009 AMY VILLAVICENCIO APRNIA R 729.5 Foot Pain (soft Tissue) 07/10/2009 NIRMAL VILLAVICENCIO APRN R 729.5 Foot Pain (soft Tissue) 07/10/2009 MAJOR MILLIGAN DO 729.5 Foot Pain (soft Tissue) 07/10/2009 PAULA ROBLEDO MD.5 Foot Pain (soft Tissue) 07/10/2009 PAULA ROBLEDO MD.5 Foot Pain (soft Tissue) 07/10/2009 PAULA ROBLEDO MD.5 Foot Pain (soft Tissue) 07/10/2009 PAULA ROBLEDO MD.5 Foot Pain (soft Tissue) 07/10/2009 PAULA ROBLEDO MD.5 Foot Pain (soft Tissue) 07/10/2009 PAULA ROBLEDO MD.5 Foot Pain (soft Tissue) 07/10/2009 PAULA ROBLEDO MD.5 Foot Pain (soft Tissue) 07/10/2009 PAULA ROBLEDO MD.5 Foot Pain (soft Tissue) 07/10/2009 PAULA ROBLEDO MD.5 Foot Pain (soft Tissue) 07/10/2009 MAJOR MILLIGAN DO 729.5 Foot Pain (soft Tissue) 07/10/2009 PAULA ROBLEDO MD 729.5 Foot Pain (soft Tissue) 07/10/2009 THAI COLEMAN DUC L 729 .5 Foot Pain (soft Tissue) 07/10/2009 PAULA ROBLEDO MD 729.5 Foot Pain (soft Tissue) 07/10/2009 PAULA ROBLEDO MD 729.5 Foot Pain (soft Tissue) 07/10/2009 PAULA ROBLEDO MD.5 Foot Pain (soft Tissue) 07/10/2009 PAULA ROBLEDO MD.5 Foot Pain (soft Tissue) 07/10/2009 PAULA ROBLEDO MD.5 Foot Pain (soft Tissue) 07/10/2009 PAULA ROBLEDO MD.Shantel Foot Pain (soft Tissue) 07/10/2009 PAULA ROBLEDO MD.5 Foot Pain (soft Tissue) 07/10/2009 PAULA ROBLEDO MD.5 Foot Pain (soft Tissue) 07/10/2009 PAULA ROBLEDO MD.5 Foot Pain (soft Tissue) 07/10/2009 PAULA ROBLEDO MD.5 Foot Pain (soft Tissue) 07/11/2009 Ot 606.9 08/14/2009 PAULA ROBLEDO MD 443.0 Raynaud's Syndrome 08/14/2009 PAULA ROBLEDO MD 443.0 Raynaud's Syndrome 08/14/2009 443.0 Rayn aud's Syndrome 08/14/2009 443.0 Rayn aud's Syndrome 08/14/2009 443.0 Rayn aud's Syndrome 08/14/2009 SAUD COLEMAN NIRMAL R 443.0 Raynaud's Syndrome 08/14/2009 SAUD COLEMAN NIRMAL R 443.0 Raynaud's Syndrome 08/14/2009 MAJOR MILLIGAN DO 443.0 Raynaud's Syndrome 08/14/2009 PAULA ROBLEDO MD 443.0 Raynaud's Syndrome 08/14/2009 PAULA ROBLEDO MD 443.0 Raynaud's Syndrome 08/14/2009 PAULA ROBLEDO MD 443.0 Raynaud's Syndrome 08/14/2009 PAULA ROBLEDO MD 443.0 Raynaud's Syndrome 08/14/2009 MEENA BLAIR, PAULA 443.0 Raynaud's Syndrome 08/14/2009 MEENA BLAIR, PAULA 443.0 Raynaud's Syndrome 08/14/2009 MEENA BLAIR, PAULA 443.0 Raynaud's Syndrome 08/14/2009 MEENA BLAIR, PAULA 443.0 Raynaud's Syndrome 08/14/2009 MEENA BLAIR, PAULA 443.0 Raynaud's Syndrome 08/14/2009 CHEL JOE MAJOR K 443.0 Raynaud's Syndrome 08/14/2009 MEENA BLAIR, PAULA 443.0 Raynaud's Syndrome 08/14/2009 DUC ANDRE APRN 443 .0 Raynaud's Syndrome 08/14/2009 MEENA BLAIR, PAULA 443.0 Raynaud's Syndrome 08/14/2009 MEENA BLAIR, PAULA 443.0 Raynaud's Syndrome 08/14/2009 MEENA BLAIR, PAULA 443.0 Raynaud's Syndrome 08/14/2009 MEENA BLAIR, PAULA 443.0 Raynaud's Syndrome 08/14/2009 MEENA BLAIR, PAULA 443.0 Raynaud's Syndrome 08/14/2009 MEENA BLAIR, PAULA 443.0 Raynaud's Syndrome 08/14/2009 MEENA BLAIR, PAULA 443.0 Raynaud's Syndrome 08/14/2009 MEENA BLAIR, PAULA 443.0 Raynaud's Syndrome 08/14/2009 MEENA BLAIR, PAULA 443.0 Raynaud's Syndrome 08/14/2009 MEENA BLAIR, PAULA 443.0 Raynaud's Syndrome 08/28/2009 MEENA BLAIR, PAULA 305.1 NICOTINE DEPENDENCE 08/28/2009 MEENA BLAIR, PAULA 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 08/28/2009 MEENA BLAIR, PAULA 305.1 NICOTINE DEPENDENCE 08/28/2009 MEENA BLAIR, PAULA 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 08/28/2009 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 08/28/2009 443.0 RAYN AUD'S PHENOMENON 08/28/2009 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 08/28/2009 443.0 RAYN AUD'S PHENOMENON 08/28/2009 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 08/28/2009 443.0 RAYN AUD'S PHENOMENON 08/28/2009 SAUD COLEMAN, NIRMAL R 305.1 NICOTINE DEPENDENCE 08/28/2009 SAUD COLEMAN, NIRMAL R 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 08/28/2009 SAUD COLEMAN NIRMAL R 305.1 NICOTINE DEPENDENCE 08/28/2009 SAUD COLEMAN NIRMAL R 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 08/28/2009 MILLIGAN DO, MAJOR K 305.1 NICOTINE DEPENDENCE 08/28/2009 MILLIGAN DO, MAJOR K 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 08/28/2009 PAULA ROBLEDO MD 305.1 NICOTINE DEPENDENCE 08/28/2009 PAULA ROBLEDO MD 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 08/28/2009 PAULA ROBLEDO MD 305.1 NICOTINE DEPENDENCE 08/28/2009 PAULA ROBLEDO MD 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 08/28/2009 PAULA ROBLEDO MD 305.1 NICOTINE DEPENDENCE 08/28/2009 PAULA ROBLEDO MD 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 08/28/2009 PAULA ROBLEDO MD 305.1 NICOTINE DEPENDENCE 08/28/2009 PAULA ROBLEDO MD 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 08/28/2009 PAULA ROBLEDO MD 305.1 NICOTINE DEPENDENCE 08/28/2009 PAULA ROBLEDO MD 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 08/28/2009 PAULA ROBLEDO MD 305.1 NICOTINE DEPENDENCE 08/28/2009 PAULA ROBLEDO MD 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 08/28/2009 PAULA ROBLEDO MD 305.1 NICOTINE DEPENDENCE 08/28/2009 PAULA ROBLEDO MD 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 08/28/2009 PAULA ROBLEDO MD 305.1 NICOTINE DEPENDENCE 08/28/2009 PAULA ROBLEDO MD 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 08/28/2009 PAULA ROBLEDO MD 305.1 NICOTINE DEPENDENCE 08/28/2009 PAULA ROBLEDO MD 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 08/28/2009 MAJOR MILLIGAN DO K 305.1 NICOTINE DEPENDENCE 08/28/2009 MAJOR MILLIGAN DO K 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1 NICOTINE DEPENDENCE 08/28/2009 PAULA ROBLEDO MD 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 08/28/2009 PAULA ROBLEDO MD 305.1 NICOTINE DEPENDENCE 08/28/2009 PAULA ROBLEDO MD 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 08/28/2009 APULA ROBLEDO MD 305.1 NICOTINE DEPENDENCE 08/28/2009 PAULA ROBLEDO MD 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 08/28/2009 PAULA ROBLEDO MD 305.1 NICOTINE DEPENDENCE 08/28/2009 PAULA ROBLEDO MD 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 08/28/2009 PAULA ROBLEDO MD 305.1 NICOTINE DEPENDENCE 08/28/2009 PAULA ROBLEDO MD 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 08/28/2009 PAULA ROBLEDO MD 305.1 NICOTINE DEPENDENCE 08/28/2009 PAULA ROBLEDO MD 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 09/28/2009 PAULA ROBLEDO MD 461.9 Sinusitis Acute 09/28/2009 MEENA BLAIR, PAULA 466.0 Acute Bronchitis 09/28/2009 MEENA BLAIR, PAULA 461.9 Sinusitis Acute 09/28/2009 MEENA BLAIR, PAULA 466.0 Acute Bronchitis 09/28/2009 461.9 Sinu sitis Acute 09/28/2009 466.0 Acut e Bronchitis 09/28/2009 461.9 Sinu sitis Acute 09/28/2009 466.0 Acut e Bronchitis 09/28/2009 461.9 Sinu sitis Acute 09/28/2009 466.0 Acut e Bronchitis 09/28/2009 VILLAVICENCIO SEO CONSULTANT, NIRMAL R 461.9 Sinusitis Acute 09/28/2009 VILLAVICENCIO SEO CONSULTANT, NIRMAL R 466.0 Acute Bronchitis 09/28/2009 VILLAVICENCIO SEO CONSULTANT, NIRMAL R 461.9 Sinusitis Acute 09/28/2009 VILLAVICENCIO SEO CONSULTANT, NIRMAL R 466.0 Acute Bronchitis 09/28/2009 MILLIGAN DO, MAJOR K 461.9 Sinusitis Acute 09/28/2009 MILLIGAN DO, MAJOR K 466.0 Acute Bronchitis 09/28/2009 MEENA BLAIR, PAULA 461.9 Sinusitis Acute 09/28/2009 MEENA BLAIR, PAULA 466.0 Acute Bronchitis 09/28/2009 MEENA BLAIR, PAULA 461.9 Sinusitis Acute 09/28/2009 MEENA BLAIR, PAULA 466.0 Acute Bronchitis 09/28/2009 MEENA BLAIR, PAULA 461.9 Sinusitis Acute 09/28/2009 MEENA BLAIR, PAULA 466.0 Acute Bronchitis 09/28/2009 MEENA BLAIR, PAULA 461.9 Sinusitis Acute 09/28/2009 MEENA BLAIR, PAULA 466.0 Acute Bronchitis 09/28/2009 MEENA BLAIR, PAULA 461.9 Sinusitis Acute 09/28/2009 MEENA BLAIR, PAULA 466.0 Acute Bronchitis 09/28/2009 MEENA BLAIR, PAULA 461.9 Sinusitis Acute 09/28/2009 MEENA BLAIR, PAULA 466.0 Acute Bronchitis 09/28/2009 MEENA BLAIR, PAULA 461.9 Sinusitis Acute 09/28/2009 MEENA BLAIR, PAULA 466.0 Acute Bronchitis 09/28/2009 MEENA BLAIR, PAULA 461.9 Sinusitis Acute 09/28/2009 MEENA BLAIR, PAULA 466.0 Acute Bronchitis 09/28/2009 MEENA BLAIR, PAULA 461.9 Sinusitis Acute 09/28/2009 MEENA BLAIR, PAULA 466.0 Acute Bronchitis 09/28/2009 MILLIGAN DO, MAJOR K 461.9 Sinusitis Acute 09/28/2009 MILLIGAN DO, MAJOR K 466.0 Acute Bronchitis 09/28/2009 MEENA BLAIR, PAULA 461.9 Sinusitis Acute 09/28/2009 MEENA BLAIR, PAULA 466.0 Acute Bronchitis 09/28/2009 MADL SEO CONSULTANT, DUC L 461 .9 Sinusitis Acute 09/28/2009 MADL SEO CONSULTANT, DUC L 466 .0 Acute Bronchitis 09/28/2009 MEENA BLAIR, PAULA 461.9 Sinusitis Acute 09/28/2009 MEENA BLAIR, PAULA 466.0 Acute Bronchitis 09/28/2009 MEENA BLAIR, PAULA 461.9 Sinusitis Acute 09/28/2009 MEENA BLAIR, PAULA 466.0 Acute Bronchitis 09/28/2009 MEENA BLAIR, PAULA 461.9 Sinusitis Acute 09/28/2009 MEENA BLAIR, PAULA 466.0 Acute Bronchitis 09/28/2009 MEENA BLAIR, PAULA 461.9 Sinusitis Acute 09/28/2009 MEENA BLAIR, PAULA 466.0 Acute Bronchitis 09/28/2009 MEENA BLAIR, PAULA 461.9 Sinusitis Acute 09/28/2009 MEENA BLAIR, PAULA 466.0 Acute Bronchitis 09/28/2009 MEENA BLAIR, PAULA 461.9 Sinusitis Acute 09/28/2009 MEENA BLAIR, PAULA 466.0 Acute Bronchitis 09/28/2009 MEENA BLAIR, PAULA 461.9 Sinusitis Acute 09/28/2009 MEENA BLAIR, PAULA 466.0 Acute Bronchitis 09/28/2009 MEENA BLAIR, PAULA 461.9 Sinusitis Acute 09/28/2009 MEENA BLAIR, PAULA 466.0 Acute Bronchitis 09/28/2009 MEENA BLAIR, PAULA 461.9 Sinusitis Acute 09/28/2009 MEENA BLAIR, PAULA 466.0 Acute Bronchitis 09/28/2009 MEENA BLAIR, PAULA 461.9 Sinusitis Acute 09/28/2009 MEENA BLAIR, PAULA 466.0 Acute Bronchitis 10/20/2009 MEENA BLAIR, PAULA 599.0 Urinary Tract Infection 10/20/2009 PAULA ROBLEDO MD 599.0 Urinary Tract Infection 10/20/2009 599.0 Urin juanito Tract Infection 10/20/2009 599.0 Urin juanito Tract Infection 10/20/2009 599.0 Urin juanito Tract Infection 10/20/2009 AMY VILLAVICENCIO APRNIA R 599.0 Urinary Tract Infection 10/20/2009 SAUD COLEMAN NIRMAL R 599.0 Urinary Tract Infection 10/20/2009 MILLIGAN DOMAJOR K 599.0 Urinary Tract Infection 10/20/2009 MEENA BLAIR, PAULA 599.0 Urinary Tract Infection 10/20/2009 PAULA ROBLEDO MD 599.0 Urinary Tract Infection 10/20/2009 MEENA BLAIR, PAULA 599.0 Urinary Tract Infection 10/20/2009 PAULA ROBLEDO MD 599.0 Urinary Tract Infection 10/20/2009 PAULA ROBLEDO MD 599.0 Urinary Tract Infection 10/20/2009 PAULA ROBELDO MD 599.0 Urinary Tract Infection 10/20/2009 PAULA ROBLEDO MD 599.0 Urinary Tract Infection 10/20/2009 PAULA ROBLEDO MD 599.0 Urinary Tract Infection 10/20/2009 PAULA ROBLEDO MD 599.0 Urinary Tract Infection 10/20/2009 MILLIGAN MAJOR JOE K 599.0 Urinary Tract Infection 10/20/2009 PAULA ROBLEDO MD 599.0 Urinary Tract Infection 10/20/2009 THAI COLEMANDUC L 599 .0 Urinary Tract Infection 10/20/2009 PAULA ROBLEDO MD 599.0 Urinary Tract Infection 10/20/2009 PAULA ROBLEDO MD 599.0 Urinary Tract Infection 10/20/2009 PAULA ROBLEDO MD 599.0 Urinary Tract Infection 10/20/2009 PAULA ROBLEDO MD 599.0 Urinary Tract Infection 10/20/2009 PAULA ROBLEDO MD 599.0 Urinary Tract Infection 10/20/2009 PAULA ROBLEDO MD 599.0 Urinary Tract Infection 10/20/2009 PAULA ROBLEDO MD 599.0 Urinary Tract Infection 10/20/2009 PAULA ROBLEDO MD 599.0 Urinary Tract Infection 10/20/2009 MEENA BLAIR, PAUAL 599.0 Urinary Tract Infection 10/20/2009 MEENA BLAIR, PAULA 599.0 Urinary Tract Infection 11/29/2009 MEENA BLAIR, PAULA Blas8.1 Dysuria 11/29/2009 MEENA BLAIR, PAULA 788.1 Dysuria 11/29/2009 788.1 Dysuria 11/29/2009 788.1 Dysuria 11/29/2009 788.1 Dysuria 11/29/2009 NIRMAL VILLAVICENCIO APRN R 788.1 Dysuria 11/29/2009 NIRMAL VILLAVICENCIO APRN R 788.1 Dysuria 11/29/2009 MILLIGAN MAJOR JOE 788.1 Dysuria 11/29/2009 MEENA BLAIR, PAULA Oconnell.1 Dysuria 11/29/2009 MEENA BLAIR, PAULA Blas8.1 Dysuria 11/29/2009 MEENA BLAIR, PAULA Blas8.1 Dysuria 11/29/2009 MEENA BLAIR, PAULA Oconnell.1 Dysuria 11/29/2009 MEENA BLAIR, PAULA Blas8.1 Dysuria 11/29/2009 MEENA BLAIR, PAULA Blas8.1 Dysuria 11/29/2009 MEENA BLAIR, PAULA Blas8.1 Dysuria 11/29/2009 MEENA BLAIR, PAULA Oconnell.1 Dysuria 11/29/2009 MEENA BLAIR, PAULA Blas8.1 Dysuria 11/29/2009 MILLIGAN MAJOR JOE K 788.1 Dysuria 11/29/2009 MEENA BLAIR, PAULA Blas8.1 Dysuria 11/29/2009 DUC ANDRE APRN 788 .1 Dysuria 11/29/2009 MEENA BLAIR, PAULA Blas8.1 Dysuria 11/29/2009 MEENA BLAIR, PAULA Blas8.1 Dysuria 11/29/2009 MEENA BLAIR, PAULA Oconnell.1 Dysuria 11/29/2009 MEENA BLAIR, PAULA Oconnell.1 Dysuria 11/29/2009 MEENA BLAIR, PAULA Blas8.1 Dysuria 11/29/2009 MEENA BLAIR, PAULA Blas8.1 Dysuria 11/29/2009 MEENA BLAIR, PAULA Oconnell.1 Dysuria 11/29/2009 MEENA BLAIR, PAULA 788.1 Dysuria 11/29/2009 MEENA BLAIR, PAULA 788.1 Dysuria 11/29/2009 MEENA BLAIR, PAULA 788.1 Dysuria 12/12/2009 MEENA BLAIR, PAULA 357.9 NEUROPATHY UNSP 12/12/2009 MEENA BLAIR, PAULA 357.9 NEUROPATHY UNSP 12/12/2009 357.9 NEUR OPATHY UNSP 12/12/2009 357.9 NEUR OPATHY UNSP 12/12/2009 357.9 NEUR OPATHY UNSP 12/12/2009 SAUD COLEMAN, NIRMAL R 357.9 NEUROPATHY UNSP 12/12/2009 SAUD COLEMAN NIRMAL R 357.9 NEUROPATHY UNSP 12/12/2009 MAJOR MILLIGAN DO K 357.9 NEUROPATHY UNSP 12/12/2009 PAULA ROBLEDO MD 357.9 NEUROPATHY UNSP 12/12/2009 PAULA ROBLEDO MD 357.9 NEUROPATHY UNSP 12/12/2009 MEENA BLAIR, PAULA 357.9 NEUROPATHY UNSP 12/12/2009 MEENA BLAIR, PAULA 357.9 NEUROPATHY UNSP 12/12/2009 PAULA ROBLEDO MD 357.9 NEUROPATHY UNSP 12/12/2009 MEENA BLAIR, PAULA 357.9 NEUROPATHY UNSP 12/12/2009 PAULA ROBLEDO MD 357.9 NEUROPATHY UNSP 12/12/2009 PAULA ROBLEDO MD 357.9 NEUROPATHY UNSP 12/12/2009 PAULA ROBLEDO MD 357.9 NEUROPATHY UNSP 12/12/2009 CHEL JOE MAJOR K 357.9 NEUROPATHY UNSP 12/12/2009 PAULA ROBLEDO MD 357.9 NEUROPATHY UNSP 12/12/2009 DUC ANDRE APRN 357 .9 NEUROPATHY UNSP 12/12/2009 PAULA ROBLEDO MD 357.9 NEUROPATHY UNSP 12/12/2009 PAULA ROBLEDO MD 357.9 NEUROPATHY UNSP 12/12/2009 PAULA ROBLEDO MD 357.9 NEUROPATHY UNSP 12/12/2009 PAULA ROBLEDO MD 357.9 NEUROPATHY UNSP 12/12/2009 PAULA ROBLEDO MD 357.9 NEUROPATHY UNSP 12/12/2009 PAULA ROBLEDO MD 357.9 NEUROPATHY UNSP 12/12/2009 PAULA ROBLEDO MD 357.9 NEUROPATHY UNSP 12/12/2009 PAULA ROBLEDO MD 357.9 NEUROPATHY UNSP 12/12/2009 PAULA ROBLEDO MD 357.9 NEUROPATHY UNSP 12/12/2009 PAULA ROBLEDO MD 357.9 NEUROPATHY UNSP 01/12/2010 PAULA ROBLEDO MD 009.1 Gastroenteritis Infect 01/12/2010 PAULA ROBLEDO MD 009.1 Gastroenteritis Infect 01/12/2010 009.1 Catherine roenteritis Infect 01/12/2010 009.1 Catherine roenteritis Infect 01/12/2010 009.1 Catherine roenteritis Infect 01/12/2010 SAUD COLEMAN NIRMAL R 009.1 Gastroenteritis Infect 01/12/2010 SAUD COLEMAN, NIRMAL R 009.1 Gastroenteritis Infect 01/12/2010 MILLIGAN MAJOR JOE K 009.1 Gastroenteritis Infect 01/12/2010 PAULA ROBLEDO MD 009.1 Gastroenteritis Infect 01/12/2010 PAULA ROBLEDO MD 009.1 Gastroenteritis Infect 01/12/2010 PAULA ROBLEDO MD 009.1 Gastroenteritis Infect 01/12/2010 PAULA ROBLEDO MD 009.1 Gastroenteritis Infect 01/12/2010 PAULA ROBLEDO MD 009.1 Gastroenteritis Infect 01/12/2010 PAULA ROBLEDO MD 009.1 Gastroenteritis Infect 01/12/2010 PAULA ROBLEDO MD 009.1 Gastroenteritis Infect 01/12/2010 PAULA ROBLEDO MD 009.1 Gastroenteritis Infect 01/12/2010 PAULA ROBLEDO MD 009.1 Gastroenteritis Infect 01/12/2010 MILLIGAN MAJOR JOE K 009.1 Gastroenteritis Infect 01/12/2010 PAULA ROBLEDO MD 009.1 Gastroenteritis Infect 01/12/2010 MADL DUC COLEMAN L 009 .1 Gastroenteritis Infect 01/12/2010 PAULA ROBLEDO MD 009.1 Gastroenteritis Infect 01/12/2010 PAULA ROBLEDO MD 009.1 Gastroenteritis Infect 01/12/2010 PAULA ROBLEDO MD 009.1 Gastroenteritis Infect 01/12/2010 PAULA ROBLEDO MD 009.1 Gastroenteritis Infect 01/12/2010 PAULA ROBLEDO MD 009.1 Gastroenteritis Infect 01/12/2010 PAULA ROBLEDO MD 009.1 Gastroenteritis Infect 01/12/2010 PAULA ROBLEDO MD 009.1 Gastroenteritis Infect 01/12/2010 PAULA ROBLEDO MD 009.1 Gastroenteritis Infect 01/12/2010 PAULA ROBLEDO MD 009.1 Gastroenteritis Infect 01/12/2010 PAULA ROBLEDO MD 009.1 Gastroenteritis Infect 01/30/2010 PAULA ROBLEDO MD 451.0 Phlebitis And Thrombophlebitis, Of Superficial Vessels Of Lower Extremities 01/30/2010 PAULA ROBLEDO MD 459.8 1 VENOUS (PERIPHERAL) INSUFFICIENCY, UNSPECIFIED 01/30/2010 PAULA ROBLEDO MD 451.0 Phlebitis And Thrombophlebitis, Of Superficial Vessels Of Lower Extremities 01/30/2010 PAULA ROBLEDO MD 459.8 1 VENOUS (PERIPHERAL) INSUFFICIENCY, UNSPECIFIED 01/30/2010 451.0 Phle bitis And Thrombophlebitis, Of Superficial Vessels Of Lower Extremities 01/30/2010 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, UNSPECIFIED 01/30/2010 451.0 Phle bitis And Thrombophlebitis, Of Superficial Vessels Of Lower Extremities 01/30/2010 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, UNSPECIFIED 01/30/2010 451.0 Phle bitis And Thrombophlebitis, Of Superficial Vessels Of Lower Extremities 01/30/2010 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, UNSPECIFIED 01/30/2010 AMY VILLAVICENCIO APRNIA R 451.0 Phlebitis And Thrombophlebitis, Of Super ficial Vessels Of Lower Extremities 01/30/2010 AMY VILLAVICENCIO APRNIA R 459.81 VENOUS (PERIPHERAL) INSUFFICIENCY, UNSPECIFIED 01/30/2010 AMY VILLAVICENCIO APRNIA R 451.0 Phlebitis And Thrombophlebitis, Of Super ficial Vessels Of Lower Extremities 01/30/2010 NIRMAL VILLAVICENCIO APRN R 459.81 VENOUS (PERIPHERAL) INSUFFICIENCY, UNSPECIFIED 01/30/2010 MAJOR MILLIGAN DO 451.0 Phlebitis And Thrombophlebitis, Of Superficial Vessels Of Lower Extremities 01/30/2010 MAJOR MILLIGAN DO 459.81 VENOUS (PERIPHERAL) INSUFFICIENCY, UNSPECIFIED 01/30/2010 PAULA ROBLEDO MD 451.0 Phlebitis And Thrombophlebitis, Of Superficial Vessels Of Lower Extremities 01/30/2010 PAULA ROBLEDO MD 459.8 1 VENOUS (PERIPHERAL) INSUFFICIENCY, UNSPECIFIED 01/30/2010 PAULA ROBLEDO MD 451.0 Phlebitis And Thrombophlebitis, Of Superficial Vessels Of Lower Extremities 01/30/2010 PAULA ROBLEDO MD 459.8 1 VENOUS (PERIPHERAL) INSUFFICIENCY, UNSPECIFIED 01/30/2010 PAULA ROBLEDO MD 451.0 Phlebitis And Thrombophlebitis, Of Superficial Vessels Of Lower Extremities 01/30/2010 PAULA ROBLEDO MD 459.8 1 VENOUS (PERIPHERAL) INSUFFICIENCY, UNSPECIFIED 01/30/2010 PAULA ROBLEDO MD 451.0 Phlebitis And Thrombophlebitis, Of Superficial Vessels Of Lower Extremities 01/30/2010 PAULA ROBLEDO MD 459.8 1 VENOUS (PERIPHERAL) INSUFFICIENCY, UNSPECIFIED 01/30/2010 PAULA ROBLEDO MD 451.0 Phlebitis And Thrombophlebitis, Of Superficial Vessels Of Lower Extremities 01/30/2010 PAULA ROBLEDO MD 459.8 1 VENOUS (PERIPHERAL) INSUFFICIENCY, UNSPECIFIED 01/30/2010 PAULA ROBLEDO MD 451.0 Phlebitis And Thrombophlebitis, Of Superficial Vessels Of Lower Extremities 01/30/2010 PAULA ROBLEDO MD 459.8 1 VENOUS (PERIPHERAL) INSUFFICIENCY, UNSPECIFIED 01/30/2010 PAULA ROBLEDO MD 451.0 Phlebitis And Thrombophlebitis, Of Superficial Vessels Of Lower Extremities 01/30/2010 PAULA ROBLEDO MD 459.8 1 VENOUS (PERIPHERAL) INSUFFICIENCY, UNSPECIFIED 01/30/2010 PAULA ROBLEDO MD 451.0 Phlebitis And Thrombophlebitis, Of Superficial Vessels Of Lower Extremities 01/30/2010 PAULA ROBLEDO MD 459.8 1 VENOUS (PERIPHERAL) INSUFFICIENCY, UNSPECIFIED 01/30/2010 PAULA ROBLEDO MD 451.0 Phlebitis And Thrombophlebitis, Of Superficial Vessels Of Lower Extremities 01/30/2010 PAULA ROBLEDO MD 459.8 1 VENOUS (PERIPHERAL) INSUFFICIENCY, UNSPECIFIED 01/30/2010 MAJOR MILLIGAN DO 451.0 Phlebitis And Thrombophlebitis, Of Superficial Vessels Of Lower Extremities 01/30/2010 MAJOR MILLIGAN DO 459.81 VENOUS (PERIPHERAL) INSUFFICIENCY, UNSPECIFIED 01/30/2010 PAULA ROBLEDO MD 451.0 Phlebitis And Thrombophlebitis, Of Superficial Vessels Of Lower Extremities 01/30/2010 PAULA ROBLEDO MD9.8 1 VENOUS (PERIPHERAL) INSUFFICIENCY, UNSPECIFIED 01/30/2010 THAI COLEMAN, DUC L 451 .0 Phlebitis And Thrombophlebitis, Of Superficial Vessels Of Lower Extremities 01/30/2010 THAI COLEMAN, DUC L 459 .81 VENOUS (PERIPHERAL) INSUFFICIENCY, UNSPECIFIED 01/30/2010 PAULA ROBLEDO MD 451.0 Phlebitis And Thrombophlebitis, Of Superficial Vessels Of Lower Extremities 01/30/2010 PAULA ROBLEDO MD 459.8 1 VENOUS (PERIPHERAL) INSUFFICIENCY, UNSPECIFIED 01/30/2010 PAULA ROBLEDO MD 451.0 Phlebitis And Thrombophlebitis, Of Superficial Vessels Of Lower Extremities 01/30/2010 PAULA ROBLEDO MD 459.8 1 VENOUS (PERIPHERAL) INSUFFICIENCY, UNSPECIFIED 01/30/2010 PAULA ROBLEDO MD 451.0 Phlebitis And Thrombophlebitis, Of Superficial Vessels Of Lower Extremities 01/30/2010 PAULA ROBLEDO MD 459.8 1 VENOUS (PERIPHERAL) INSUFFICIENCY, UNSPECIFIED 01/30/2010 PAULA ROBLEDO MD 451.0 Phlebitis And Thrombophlebitis, Of Superficial Vessels Of Lower Extremities 01/30/2010 PAULA ROBLEDO MD 459.8 1 VENOUS (PERIPHERAL) INSUFFICIENCY, UNSPECIFIED 01/30/2010 PAULA ROBLEDO MD 451.0 Phlebitis And Thrombophlebitis, Of Superficial Vessels Of Lower Extremities 01/30/2010 PAULA ROBLEDO MD 459.8 1 VENOUS (PERIPHERAL) INSUFFICIENCY, UNSPECIFIED 01/30/2010 PAULA ROBLEDO MD 451.0 Phlebitis And Thrombophlebitis, Of Superficial Vessels Of Lower Extremities 01/30/2010 PAULA ROBLEDO MD 459.8 1 VENOUS (PERIPHERAL) INSUFFICIENCY, UNSPECIFIED 01/30/2010 PAULA ROBLEDO MD 451.0 Phlebitis And Thrombophlebitis, Of Superficial Vessels Of Lower Extremities 01/30/2010 PAULA ROBLEDO MD9.8 1 VENOUS (PERIPHERAL) INSUFFICIENCY, UNSPECIFIED 01/30/2010 PAULA ROBLEDO MD 451.0 Phlebitis And Thrombophlebitis, Of Superficial Vessels Of Lower Extremities 01/30/2010 PAULA ROBLEDO MD9.8 1 VENOUS (PERIPHERAL) INSUFFICIENCY, UNSPECIFIED 01/30/2010 PAULA ROBLEDO MD 451.0 Phlebitis And Thrombophlebitis, Of Superficial Vessels Of Lower Extremities 01/30/2010 PAULA ROBLEDO MD 459.8 1 VENOUS (PERIPHERAL) INSUFFICIENCY, UNSPECIFIED 01/30/2010 PAULA ROBLEDO MD 451.0 Phlebitis And Thrombophlebitis, Of Superficial Vessels Of Lower Extremities 01/30/2010 PAULA ROBLEDO MD 459.8 1 VENOUS (PERIPHERAL) INSUFFICIENCY, UNSPECIFIED 03/20/2010 PAULA ROBLEDO MD 451.8 2 Phlebitis And Thrombophlebitis, Of Superficial Veins Of Upper Extremities 03/20/2010 PAULA ROBLEDO MD 451.8 2 Phlebitis And Thrombophlebitis, Of Superficial Veins Of Upper Extremities 03/20/2010 451.82 Phl ebitis And Thrombophlebitis, Of Superficial Veins Of Upper Extremities 03/20/2010 451.82 Phl ebitis And Thrombophlebitis, Of Superficial Veins Of Upper Extremities 03/20/2010 451.82 Phl ebitis And Thrombophlebitis, Of Superficial Veins Of Upper Extremities 03/20/2010 SAUD COLEMAN, NIRMAL R 451.82 Phlebitis And Thrombophlebitis, Of Super ficial Veins Of Upper Extremities 03/20/2010 SAUD COLEMAN, NIRMAL R 451.82 Phlebitis And Thrombophlebitis, Of Super ficial Veins Of Upper Extremities 03/20/2010 MAJOR MILLIGAN DO 451.82 Phlebitis And Thrombophlebitis, Of Superficial Veins Of Upper Extremities 03/20/2010 PAULA ROBLEDO MD 451.8 2 Phlebitis And Thrombophlebitis, Of Superficial Veins Of Upper Extremities 03/20/2010 PAULA ROBLEDO MD 451.8 2 Phlebitis And Thrombophlebitis, Of Superficial Veins Of Upper Extremities 03/20/2010 PAULA ROBLEDO MD 451.8 2 Phlebitis And Thrombophlebitis, Of Superficial Veins Of Upper Extremities 03/20/2010 PAULA ROBLEDO MD 451.8 2 Phlebitis And Thrombophlebitis, Of Superficial Veins Of Upper Extremities 03/20/2010 PAULA ROBLEDO MD 451.8 2 Phlebitis And Thrombophlebitis, Of Superficial Veins Of Upper Extremities 03/20/2010 PAULA ROBLEDO MD 451.8 2 Phlebitis And Thrombophlebitis, Of Superficial Veins Of Upper Extremities 03/20/2010 PAULA ROBLEDO MD 451.8 2 Phlebitis And Thrombophlebitis, Of Superficial Veins Of Upper Extremities 03/20/2010 PAULA ROBLEDO MD 451.8 2 Phlebitis And Thrombophlebitis, Of Superficial Veins Of Upper Extremities 03/20/2010 PAULA ROBLEDO MD 451.8 2 Phlebitis And Thrombophlebitis, Of Superficial Veins Of Upper Extremities 03/20/2010 MAJOR MILLIGAN DO 451.82 Phlebitis And Thrombophlebitis, Of Superficial Veins Of Upper Extremities 03/20/2010 PAULA ROBLEDO MD 451.8 2 Phlebitis And Thrombophlebitis, Of Superficial Veins Of Upper Extremities 03/20/2010 DUC ANDRE APRN 451 .82 Phlebitis And Thrombophlebitis, Of Superficial Veins Of Upper Extremities 03/20/2010 PAULA ROBLEDO MD 451.8 2 Phlebitis And Thrombophlebitis, Of Superficial Veins Of Upper Extremities 03/20/2010 PAULA ROBLEDO MD 451.8 2 Phlebitis And Thrombophlebitis, Of Superficial Veins Of Upper Extremities 03/20/2010 PAULA ROBLEDO MD 451.8 2 Phlebitis And Thrombophlebitis, Of Superficial Veins Of Upper Extremities 03/20/2010 PAULA ROBLEDO MD 451.8 2 Phlebitis And Thrombophlebitis, Of Superficial Veins Of Upper Extremities 03/20/2010 PAULA ROBLEDO MD 451.8 2 Phlebitis And Thrombophlebitis, Of Superficial Veins Of Upper Extremities 03/20/2010 PAULA ROBLEDO MD 451.8 2 Phlebitis And Thrombophlebitis, Of Superficial Veins Of Upper Extremities 03/20/2010 PAULA ROBLEDO MD 451.8 2 Phlebitis And Thrombophlebitis, Of Superficial Veins Of Upper Extremities 03/20/2010 PAULA ROBLEDO MD 451.8 2 Phlebitis And Thrombophlebitis, Of Superficial Veins Of Upper Extremities 03/20/2010 PAULA ROBLEDO MD 451.8 2 Phlebitis And Thrombophlebitis, Of Superficial Veins Of Upper Extremities 03/20/2010 PAULA ROBLEDO MD 451.8 2 Phlebitis And Thrombophlebitis, Of Superficial Veins Of Upper Extremities 04/10/2010 Ot 845.00 04/10/2010 Ot 959.7 04/10/2010 Ot E000.8 04/10/2010 Ot E019.0 04/10/2010 Ot E917.9 05/01/2010 MEENA BLAIR, PAULA 401.1 Hypertension, Benign Essential 05/01/2010 MEENA BLAIR, PAULA 401.1 Hypertension, Benign Essential 05/01/2010 401.1 Hype rtension, Benign Essential 05/01/2010 401.1 Hype rtension, Benign Essential 05/01/2010 401.1 Hype rtension, Benign Essential 05/01/2010 SAUD SEO CONSULTANT, NIRMAL R 401.1 Hypertension, Benign Essential 05/01/2010 SAUD SEO CONSULTANT, NIRMAL R 401.1 Hypertension, Benign Essential 05/01/2010 MILLIGAN DOMAJOR 401.1 Hypertension, Benign Essential 05/01/2010 MEENA BLAIR, PAULA 401.1 Hypertension, Benign Essential 05/01/2010 MEENA BLAIR, PAULA 401.1 Hypertension, Benign Essential 05/01/2010 MEENA BLAIR, PAULA 401.1 Hypertension, Benign Essential 05/01/2010 MEENA BLAIR, PAULA 401.1 Hypertension, Benign Essential 05/01/2010 MEENA BLAIR, PAULA 401.1 Hypertension, Benign Essential 05/01/2010 MEENA BLAIR, PAULA 401.1 Hypertension, Benign Essential 05/01/2010 MEENA BLAIR, PAULA 401.1 Hypertension, Benign Essential 05/01/2010 MEENA BLAIR, PAULA 401.1 Hypertension, Benign Essential 05/01/2010 MEENA BLAIR, PAULA 401.1 Hypertension, Benign Essential 05/01/2010 MILLIGAN MAJOR JOE K 401.1 Hypertension, Benign Essential 05/01/2010 MEENA BLAIR, PAULA 401.1 Hypertension, Benign Essential 05/01/2010 THAI SEO CONSULTANT, DUC L 401 .1 Hypertension, Benign Essential 05/01/2010 PAULA ROBLEDO MD 401.1 Hypertension, Benign Essential 05/01/2010 MEENA BLAIR, PAULA 401.1 Hypertension, Benign Essential 05/01/2010 MEENA BLAIR, PAULA 401.1 Hypertension, Benign Essential 05/01/2010 MEENA BLAIR, PAULA 401.1 Hypertension, Benign Essential 05/01/2010 PAULA ROBLEDO MD 401.1 Hypertension, Benign Essential 05/01/2010 PAULA ROBLEDO MD 401.1 Hypertension, Benign Essential 05/01/2010 MEENA BLAIR, PAULA 401.1 Hypertension, Benign Essential 05/01/2010 MEENA BLAIR, PAULA 401.1 Hypertension, Benign Essential 05/01/2010 MEENA BLAIR, PAULA 401.1 Hypertension, Benign Essential 05/01/2010 MEENA BLAIR, PAULA 401.1 Hypertension, Benign Essential 06/06/2010 Ot 719.47 06/06/2010 Ot V57.1 06/06/2010 Ot V58.43 06/20/2010 Ot 305.00 06/20/2010 Ot 966.3 06/20/2010 Ot 980.0 06/20/2010 Ot E855.0 06/20/2010 Ot E860.0 08/02/2010 PAULA ROBLEDO MD 707.1 0 Ulcer Of Lower Limb, Unspecified 08/02/2010 PAULA ROBLEDO MD 707.1 0 Ulcer Of Lower Limb, Unspecified 08/02/2010 707.10 Ulc er Of Lower Limb, Unspecified 08/02/2010 707.10 Ulc er Of Lower Limb, Unspecified 08/02/2010 707.10 Ulc er Of Lower Limb, Unspecified 08/02/2010 NIRMAL VILLAVICENCIO APRN R 707.10 Ulcer Of Lower Limb, Unspecified 08/02/2010 NIRMAL VILLAVICENCIO APRN R 707.10 Ulcer Of Lower Limb, Unspecified 08/02/2010 MAJOR MILLIGAN DO 707.10 Ulcer Of Lower Limb, Unspecified 08/02/2010 PAULA ROBLEDO MD 707.1 0 Ulcer Of Lower Limb, Unspecified 08/02/2010 PAULA ROBLEDO MD 707.1 0 Ulcer Of Lower Limb, Unspecified 08/02/2010 PAULA ROBLEDO MD 707.1 0 Ulcer Of Lower Limb, Unspecified 08/02/2010 PAULA ROBLEDO MD 707.1 0 Ulcer Of Lower Limb, Unspecified 08/02/2010 PAULA ROBLEDO MD 707.1 0 Ulcer Of Lower Limb, Unspecified 08/02/2010 PAULA ROBLEDO MD 707.1 0 Ulcer Of Lower Limb, Unspecified 08/02/2010 PAULA ROBLEDO MD 707.1 0 Ulcer Of Lower Limb, Unspecified 08/02/2010 PAULA ROBLEDO MD 707.1 0 Ulcer Of Lower Limb, Unspecified 08/02/2010 MEENA BLAIR, PAULA 707.1 0 Ulcer Of Lower Limb, Unspecified 08/02/2010 MAJOR MILLIGAN DO K 707.10 Ulcer Of Lower Limb, Unspecified 08/02/2010 MEENA BLAIR, PAULA 707.1 0 Ulcer Of Lower Limb, Unspecified 08/02/2010 THAI SEO CONSULTANT, DUC Reese 707 .10 Ulcer Of Lower Limb, Unspecified 08/02/2010 MEENA BLAIR, PAULA 707.1 0 Ulcer Of Lower Limb, Unspecified 08/02/2010 MEENA BLAIR, PAULA 707.1 0 Ulcer Of Lower Limb, Unspecified 08/02/2010 MEENA BLAIR, PAULA 707.1 0 Ulcer Of Lower Limb, Unspecified 08/02/2010 MEENA BLAIR, PAULA 707.1 0 Ulcer Of Lower Limb, Unspecified 08/02/2010 MEENA BLAIR, PAULA 707.1 0 Ulcer Of Lower Limb, Unspecified 08/02/2010 MEENA BLAIR, PAULA 707.1 0 Ulcer Of Lower Limb, Unspecified 08/02/2010 MEENA BLAIR, PAULA 707.1 0 Ulcer Of Lower Limb, Unspecified 08/02/2010 MEENA BLAIR, PAULA 707.1 0 Ulcer Of Lower Limb, Unspecified 08/02/2010 MEENA BLAIR, PAULA 707.1 0 Ulcer Of Lower Limb, Unspecified 08/02/2010 MEENA BLAIR, PAULA 707.1 0 Ulcer Of Lower Limb, Unspecified 08/16/2010 PAULA ROBLEDO MD 289.0 POLYCYTHEMIA, SECONDARY 08/16/2010 PAULA ROBLEDO MD 289.0 POLYCYTHEMIA, SECONDARY 08/16/2010 289.0 POLY CYTHEMIA, SECONDARY 08/16/2010 289.0 POLY CYTHEMIA, SECONDARY 08/16/2010 289.0 POLY CYTHEMIA, SECONDARY 08/16/2010 NIRMAL VILLAVICENCIO APRN R 289.0 POLYCYTHEMIA, SECONDARY 08/16/2010 NIRMAL VILLAVICENCIO APRN R 289.0 POLYCYTHEMIA, SECONDARY 08/16/2010 MAJOR MILLIGAN DO 289.0 POLYCYTHEMIA, SECONDARY 08/16/2010 PAULA ROBLEDO MD 289.0 POLYCYTHEMIA, SECONDARY 08/16/2010 PAULA ROBLEDO MD 289.0 POLYCYTHEMIA, SECONDARY 08/16/2010 MEENA BLAIR, PAULA 289.0 POLYCYTHEMIA, SECONDARY 08/16/2010 MEENA BLAIR, PAULA 289.0 POLYCYTHEMIA, SECONDARY 08/16/2010 MEENA BLAIR, PAULA 289.0 POLYCYTHEMIA, SECONDARY 08/16/2010 MEENA BLAIR, PAULA 289.0 POLYCYTHEMIA, SECONDARY 08/16/2010 MEENA BLAIR, PAULA 289.0 POLYCYTHEMIA, SECONDARY 08/16/2010 MEENA BLAIR, PAULA 289.0 POLYCYTHEMIA, SECONDARY 08/16/2010 MEENA BLAIR, PAULA 289.0 POLYCYTHEMIA, SECONDARY 08/16/2010 MILLIGAN DO, MAJOR K 289.0 POLYCYTHEMIA, SECONDARY 08/16/2010 MEENA BLAIR, PAULA 289.0 POLYCYTHEMIA, SECONDARY 08/16/2010 THAI SEO CONSULTANT, DUC L 289 .0 POLYCYTHEMIA, SECONDARY 08/16/2010 MEENA BLAIR, PAULA 289.0 POLYCYTHEMIA, SECONDARY 08/16/2010 MEENA BLARI, PAUAL 289.0 POLYCYTHEMIA, SECONDARY 08/16/2010 MEENA BLAIR, PAULA 289.0 POLYCYTHEMIA, SECONDARY 08/16/2010 MEENA BLAIR, PAULA 289.0 POLYCYTHEMIA, SECONDARY 08/16/2010 MEENA BLAIR, PAULA 289.0 POLYCYTHEMIA, SECONDARY 08/16/2010 MEENA BLAIR, PAULA 289.0 POLYCYTHEMIA, SECONDARY 08/16/2010 MEENA BLAIR, PAULA 289.0 POLYCYTHEMIA, SECONDARY 08/16/2010 MEENA BLAIR, PAULA 289.0 POLYCYTHEMIA, SECONDARY 08/16/2010 MEENA BLAIR, PAULA 289.0 POLYCYTHEMIA, SECONDARY 08/16/2010 MEENA BLAIR, PAULA 289.0 POLYCYTHEMIA, SECONDARY 09/18/2010 PAULA ROBLEDO MD 461.0 Acute Maxillary Sinusitis 09/18/2010 PAULA ROBLEDO MD 461.0 Acute Maxillary Sinusitis 09/18/2010 461.0 Acut e Maxillary Sinusitis 09/18/2010 461.0 Acut e Maxillary Sinusitis 09/18/2010 461.0 Acut e Maxillary Sinusitis 09/18/2010 NIRMAL VILLAVICENCIO APRN 461.0 Acute Maxillary Sinusitis 09/18/2010 SAUD NIEVESN, NIRMAL R 461.0 Acute Maxillary Sinusitis 09/18/2010 MILLIGAN DO, MAJOR K 461.0 Acute Maxillary Sinusitis 09/18/2010 MEENA BLAIR, PAULA 461.0 Acute Maxillary Sinusitis 09/18/2010 MEENA BLAIR, PAULA 461.0 Acute Maxillary Sinusitis 09/18/2010 MEENA BLAIR, PAULA 461.0 Acute Maxillary Sinusitis 09/18/2010 MEENA BLAIR, PAULA 461.0 Acute Maxillary Sinusitis 09/18/2010 MEENA BLAIR, PAULA 461.0 Acute Maxillary Sinusitis 09/18/2010 MEENA BLAIR, PAULA 461.0 Acute Maxillary Sinusitis 09/18/2010 MEENA BLAIR, PAULA 461.0 Acute Maxillary Sinusitis 09/18/2010 MEENA BLAIR, PAULA 461.0 Acute Maxillary Sinusitis 09/18/2010 MEENA BLAIR, PAULA 461.0 Acute Maxillary Sinusitis 09/18/2010 MILLIGAN DO, MAJOR K 461.0 Acute Maxillary Sinusitis 09/18/2010 MEENA BLAIR, PAULA 461.0 Acute Maxillary Sinusitis 09/18/2010 THAI SEO CONSULTANT, DUC L 461 .0 Acute Maxillary Sinusitis 09/18/2010 MEENA BLAIR, PAULA 461.0 Acute Maxillary Sinusitis 09/18/2010 MEENA BLAIR, PAULA 461.0 Acute Maxillary Sinusitis 09/18/2010 MEENA BLAIR, PAULA 461.0 Acute Maxillary Sinusitis 09/18/2010 MEENA BLAIR, PAULA 461.0 Acute Maxillary Sinusitis 09/18/2010 MEENA BLAIR, PAULA 461.0 Acute Maxillary Sinusitis 09/18/2010 MEENA BLAIR, PAULA 461.0 Acute Maxillary Sinusitis 09/18/2010 MEENA BLAIR, PAULA 461.0 Acute Maxillary Sinusitis 09/18/2010 MEENA BLAIR, PAULA 461.0 Acute Maxillary Sinusitis 09/18/2010 MEENA BLAIR, PAULA 461.0 Acute Maxillary Sinusitis 09/18/2010 MEENA BLAIR, PAULA 461.0 Acute Maxillary Sinusitis 03/11/2011 MEENA BLAIR, PAULA 451.9 Thrombophlebitis Of Unspecified Site 03/11/2011 MEENA BLAIR, PAULA 451.9 Thrombophlebitis Of Unspecified Site 03/11/2011 451.9 Thro mbophlebitis Of Unspecified Site 03/11/2011 451.9 Thro mbophlebitis Of Unspecified Site 03/11/2011 451.9 Thro mbophlebitis Of Unspecified Site 03/11/2011 SAUD SEO CONSULTANT, NIRMAL R 451.9 Thrombophlebitis Of Unspecified Site 03/11/2011 NIRMAL VILLAVICENCIO APRN R 451.9 Thrombophlebitis Of Unspecified Site 03/11/2011 CHEL DOSHAJIA K 451.9 Thrombophlebitis Of Unspecified Site 03/11/2011 PAULA ROBLEDO MD 451.9 Thrombophlebitis Of Unspecified Site 03/11/2011 PAULA ROBLEDO MD 451.9 Thrombophlebitis Of Unspecified Site 03/11/2011 PAULA ROBLEDO MD 451.9 Thrombophlebitis Of Unspecified Site 03/11/2011 PAULA ROBLEDO MD 451.9 Thrombophlebitis Of Unspecified Site 03/11/2011 PAULA ROBLEDO MD 451.9 Thrombophlebitis Of Unspecified Site 03/11/2011 PAULA ROLBEDO MD 451.9 Thrombophlebitis Of Unspecified Site 03/11/2011 PAULA ROBLEDO MD 451.9 Thrombophlebitis Of Unspecified Site 03/11/2011 PAULA ROBLEDO MD 451.9 Thrombophlebitis Of Unspecified Site 03/11/2011 PAULA ROBLEDO MD 451.9 Thrombophlebitis Of Unspecified Site 03/11/2011 MAJOR MILLIGAN DO K 451.9 Thrombophlebitis Of Unspecified Site 03/11/2011 PAULA ROBLEDO MD 451.9 Thrombophlebitis Of Unspecified Site 03/11/2011 THAI COLEMAN, DUC L 451 .9 Thrombophlebitis Of Unspecified Site 03/11/2011 PAULA ROBLEDO MD 451.9 Thrombophlebitis Of Unspecified Site 03/11/2011 PAULA ROBLEDO MD 451.9 Thrombophlebitis Of Unspecified Site 03/11/2011 PAULA ROBLEDO MD 451.9 Thrombophlebitis Of Unspecified Site 03/11/2011 PAULA ROBLEDO MD 451.9 Thrombophlebitis Of Unspecified Site 03/11/2011 MEENA BLAIR, PAULA 451.9 Thrombophlebitis Of Unspecified Site 03/11/2011 MEENA BLAIR, PAULA 451.9 Thrombophlebitis Of Unspecified Site 03/11/2011 MEENA BLAIR, PAULA 451.9 Thrombophlebitis Of Unspecified Site 03/11/2011 PAULA ROBLEDO MD 451.9 Thrombophlebitis Of Unspecified Site 03/11/2011 PAULA ROBLEDO MD 451.9 Thrombophlebitis Of Unspecified Site 03/11/2011 PAULA ROBLEDO MD 451.9 Thrombophlebitis Of Unspecified Site 05/26/2011 Ot 276.8 05/26/2011 Ot 729.82 05/26/2011 Ot 992.5 06/11/2011 PAULA ROBLEDO MD 276.8 Hypopotassemia 06/11/2011 PAULA ROBLEDO MD 276.8 Hypopotassemia 06/11/2011 276.8 Hypo potassemia 06/11/2011 276.8 Hypo potassemia 06/11/2011 276.8 Hypo potassemia 06/11/2011 SAUD COLEMAN, NIRMAL R 276.8 Hypopotassemia 06/11/2011 SAUD COLEMAN NIRMAL R 276.8 Hypopotassemia 06/11/2011 MILLIGAN DO, MAJOR K 276.8 Hypopotassemia 06/11/2011 PAULA ROBLEDO MD 276.8 Hypopotassemia 06/11/2011 PAULA ROBLEDO MD 276.8 Hypopotassemia 06/11/2011 PAULA ROBLEDO MD 276.8 Hypopotassemia 06/11/2011 PAULA ROBLEDO MD 276.8 Hypopotassemia 06/11/2011 PAULA ROBLEDO MD 276.8 Hypopotassemia 06/11/2011 PAULA ROBLEDO MD 276.8 Hypopotassemia 06/11/2011 PAULA ROBLEDO MD 276.8 Hypopotassemia 06/11/2011 PAULA ROBLEDO MD 276.8 Hypopotassemia 06/11/2011 PAULA ROBLEDO MD 276.8 Hypopotassemia 06/11/2011 MILLIGAN DO, MAJOR K 276.8 Hypopotassemia 06/11/2011 PAULA ROBLEDO MD 276.8 Hypopotassemia 06/11/2011 THAI SEO CONSULTANT, DUC Reese 276 .8 Hypopotassemia 06/11/2011 MEENA BLAIR, PAULA 276.8 Hypopotassemia 06/11/2011 MEENA BLAIR, PAULA 276.8 Hypopotassemia 06/11/2011 MEENA BLAIR, PAULA 276.8 Hypopotassemia 06/11/2011 MEENA BLAIR, PAULA 276.8 Hypopotassemia 06/11/2011 MEENA BLAIR, PAULA 276.8 Hypopotassemia 06/11/2011 MEENA BLAIR, PAULA 276.8 Hypopotassemia 06/11/2011 MEENA BLAIR, PAULA 276.8 Hypopotassemia 06/11/2011 MEENA BLAIR, PAULA 276.8 Hypopotassemia 06/11/2011 MEENA BLAIR, PAULA 276.8 Hypopotassemia 06/11/2011 MEENA BLAIR, PAULA 276.8 Hypopotassemia 09/10/2011 PAULA ROBLEDO MD 604.9 0 Orchitis And Epididymitis Unspecified 09/10/2011 PAULA ROBLEDO MD 604.9 0 Orchitis And Epididymitis Unspecified 09/10/2011 604.90 Orc hitis And Epididymitis Unspecified 09/10/2011 604.90 Orc hitis And Epididymitis Unspecified 09/10/2011 604.90 Orc hitis And Epididymitis Unspecified 09/10/2011 SAUD NIEVESN, NIRMAL R 604.90 Orchitis And Epididymitis Unspecified 09/10/2011 SAUD NIEVESN, NIRMAL R 604.90 Orchitis And Epididymitis Unspecified 09/10/2011 MAJOR MILLIGAN DO 604.90 Orchitis And Epididymitis Unspecified 09/10/2011 PAULA ROBLEDO MD 604.9 0 Orchitis And Epididymitis Unspecified 09/10/2011 PAULA ROBLEDO MD 604.9 0 Orchitis And Epididymitis Unspecified 09/10/2011 PAULA ROBLEDO MD 604.9 0 Orchitis And Epididymitis Unspecified 09/10/2011 PAULA ROBLEDO MD 604.9 0 Orchitis And Epididymitis Unspecified 09/10/2011 PAULA ROBLEDO MD 604.9 0 Orchitis And Epididymitis Unspecified 09/10/2011 PAULA ROBLEDO MD 604.9 0 Orchitis And Epididymitis Unspecified 09/10/2011 PAULA ROBLEDO MD 604.9 0 Orchitis And Epididymitis Unspecified 09/10/2011 PAULA ROBLEDO MD 604.9 0 Orchitis And Epididymitis Unspecified 09/10/2011 PAULA ROBLEDO MD 604.9 0 Orchitis And Epididymitis Unspecified 09/10/2011 MILLIGAN DO, MAJOR K 604.90 Orchitis And Epididymitis Unspecified 09/10/2011 PAULA ROBLEDO MD 604.9 0 Orchitis And Epididymitis Unspecified 09/10/2011 MADL SEO CONSULTANT, DUC L 604 .90 Orchitis And Epididymitis Unspecified 09/10/2011 PAULA ROBLEDO MD 604.9 0 Orchitis And Epididymitis Unspecified 09/10/2011 PAULA ROBLEDO MD 604.9 0 Orchitis And Epididymitis Unspecified 09/10/2011 PAULA ROBLEDO MD 604.9 0 Orchitis And Epididymitis Unspecified 09/10/2011 PAULA ROBLEDO MD 604.9 0 Orchitis And Epididymitis Unspecified 09/10/2011 PAULA ROBLEDO MD 604.9 0 Orchitis And Epididymitis Unspecified 09/10/2011 PAULA ROBLEDO MD 604.9 0 Orchitis And Epididymitis Unspecified 09/10/2011 PAULA ROBLEDO MD 604.9 0 Orchitis And Epididymitis Unspecified 09/10/2011 PAULA ROBLEDO MD 604.9 0 Orchitis And Epididymitis Unspecified 09/10/2011 PAULA ROBLEDO MD 604.9 0 Orchitis And Epididymitis Unspecified 09/10/2011 PAULA ROBLEDO MD 604.9 0 Orchitis And Epididymitis Unspecified 11/11/2011 PAULA ROBLEDO MD 719.4 6 Pain In Joint Involving Lower Leg 11/11/2011 PAULA ROBLEDO MD 719.4 6 Pain In Joint Involving Lower Leg 11/11/2011 719.46 Charla n In Joint Involving Lower Leg 11/11/2011 719.46 Charla n In Joint Involving Lower Leg 11/11/2011 719.46 Charla n In Joint Involving Lower Leg 11/11/2011 NIRMAL VILLAVICENCIO APRN 719.46 Pain In Joint Involving Lower Leg 11/11/2011 NIRMAL VILLAVICENCIO APRN 719.46 Pain In Joint Involving Lower Leg 11/11/2011 MAJOR MILLIGAN DO K 719.46 Pain In Joint Involving Lower Leg 11/11/2011 PAULA ROBLEDO MD.4 6 Pain In Joint Involving Lower Leg 11/11/2011 PAULA ROBLEDO MD 71[place].4 6 Pain In Joint Involving Lower Leg 11/11/2011 PAULA ROBLEDO MD 71[place].4 6 Pain In Joint Involving Lower Leg 11/11/2011 PAULA ROBLEDO MD.4 6 Pain In Joint Involving Lower Leg 11/11/2011 PAULA ROBLEDO MD.4 6 Pain In Joint Involving Lower Leg 11/11/2011 PAULA ROBLEDO MD.4 6 Pain In Joint Involving Lower Leg 11/11/2011 PAULA ROBLEDO MD.4 6 Pain In Joint Involving Lower Leg 11/11/2011 PAULA ROBLEDO MD.4 6 Pain In Joint Involving Lower Leg 11/11/2011 PAULA ROBLEDO MD.4 6 Pain In Joint Involving Lower Leg 11/11/2011 MAJOR MILLIGAN DO 719.46 Pain In Joint Involving Lower Leg 11/11/2011 PAULA ROBLEDO MD 71[place].4 6 Pain In Joint Involving Lower Leg 11/11/2011 THAI COLEMAN DUC L 719 .46 Pain In Joint Involving Lower Leg 11/11/2011 PAULA ROBLEDO MD 719.4 6 Pain In Joint Involving Lower Leg 11/11/2011 PAULA ROBLEDO MD 71[place].4 6 Pain In Joint Involving Lower Leg 11/11/2011 PAULA ROBLEDO MD.4 6 Pain In Joint Involving Lower Leg 11/11/2011 PAULA ROBLEDO MD.4 6 Pain In Joint Involving Lower Leg 11/11/2011 PAULA ROBLEDO MD.4 6 Pain In Joint Involving Lower Leg 11/11/2011 PAULA ROBLEDO MD.4 6 Pain In Joint Involving Lower Leg 11/11/2011 PAULA ROBLEDO MD.4 6 Pain In Joint Involving Lower Leg 11/11/2011 PAULA ROBLEDO MD 71[place].4 6 Pain In Joint Involving Lower Leg 11/11/2011 PAULA ROBLEDO MD.4 6 Pain In Joint Involving Lower Leg 11/11/2011 PAULA ROBLEDO MD 719.4 6 Pain In Joint Involving Lower Leg 01/03/2012 PAULA ROBLEDO MD 558.9 Other And Unspecified Noninfectious Gastroenteritis And Colitis 01/03/2012 PAULA ROBLEDO MD 558.9 Other And Unspecified Noninfectious Gastroenteritis And Colitis 01/03/2012 558.9 Othe r And Unspecified Noninfectious Gastroenteritis And Colitis 01/03/2012 558.9 Othe r And Unspecified Noninfectious Gastroenteritis And Colitis 01/03/2012 558.9 Othe r And Unspecified Noninfectious Gastroenteritis And Colitis 01/03/2012 NIRMAL VILLAVICENCIO APRN R 558.9 Other And Unspecified Noninfectious Gastroenteritis An d Colitis 01/03/2012 NIRMAL VILLAVICENCIO APRN 558.9 Other And Unspecified Noninfectious Gastroenteritis An d Colitis 01/03/2012 MAJOR MILLIGAN DO 558.9 Other And Unspecified Noninfectious Gastroenteritis And Colitis 01/03/2012 PAULA ROBLEDO MD8.9 Other And Unspecified Noninfectious Gastroenteritis And Colitis 01/03/2012 PAULA ROBLEDO MD8.9 Other And Unspecified Noninfectious Gastroenteritis And Colitis 01/03/2012 PAULA ROBLEDO MD8.9 Other And Unspecified Noninfectious Gastroenteritis And Colitis 01/03/2012 PAULA ROBLEDO MD 558.9 Other And Unspecified Noninfectious Gastroenteritis And Colitis 01/03/2012 PAULA ROBELDO MD 558.9 Other And Unspecified Noninfectious Gastroenteritis And Colitis 01/03/2012 PAULA ROBLEDO MD8.9 Other And Unspecified Noninfectious Gastroenteritis And Colitis 01/03/2012 PAULA ROBLEDO MD8.9 Other And Unspecified Noninfectious Gastroenteritis And Colitis 01/03/2012 PAULA ROBLEDO MD8.9 Other And Unspecified Noninfectious Gastroenteritis And Colitis 01/03/2012 PAULA ROBLEDO MD8.9 Other And Unspecified Noninfectious Gastroenteritis And Colitis 01/03/2012 MAJOR MILLIGAN DO 558.9 Other And Unspecified Noninfectious Gastroenteritis And Colitis 01/03/2012 PAULA ROBLEDO MD8.9 Other And Unspecified Noninfectious Gastroenteritis And Colitis 01/03/2012 MADL SEO CONSULTANTDUC 558 .9 Other And Unspecified Noninfectious Gastroenteritis And Colitis 01/03/2012 PAULA ROBLEDO MD 558.9 Other And Unspecified Noninfectious Gastroenteritis And Colitis 01/03/2012 PAULA ROBLEDO MD 558.9 Other And Unspecified Noninfectious Gastroenteritis And Colitis 01/03/2012 PAULA ROBLEDO MD 558.9 Other And Unspecified Noninfectious Gastroenteritis And Colitis 01/03/2012 PAULA ROBLEDO MD 558.9 Other And Unspecified Noninfectious Gastroenteritis And Colitis 01/03/2012 PAULA ROBLEDO MD8.9 Other And Unspecified Noninfectious Gastroenteritis And Colitis 01/03/2012 PAULA ROBLEDO MD8.9 Other And Unspecified Noninfectious Gastroenteritis And Colitis 01/03/2012 PAULA ROBLEDO MD 558.9 Other And Unspecified Noninfectious Gastroenteritis And Colitis 01/03/2012 PAULA ROBLEDO MD 558.9 Other And Unspecified Noninfectious Gastroenteritis And Colitis 01/03/2012 PAULA ROBLEDO MD 558.9 Other And Unspecified Noninfectious Gastroenteritis And Colitis 01/03/2012 PAULA ROBLEDO MD 558.9 Other And Unspecified Noninfectious Gastroenteritis And Colitis 02/17/2012 PAULA ROBLEDO MD 466.0 Acute Bronchitis 02/17/2012 PAULA ROBLEDO MD 466.0 Acute Bronchitis 02/17/2012 466.0 Acut e Bronchitis 02/17/2012 466.0 Acut e Bronchitis 02/17/2012 466.0 Acut e Bronchitis 02/17/2012 NIRMAL VILLAVICENCIO APRN R 466.0 Acute Bronchitis 02/17/2012 NIRMAL VILLAVICENCIO APRN R 466.0 Acute Bronchitis 02/17/2012 MAJOR MILLIGAN DO 466.0 Acute Bronchitis 02/17/2012 PAULA ROBLEDO MD 466.0 Acute Bronchitis 02/17/2012 PAULA ROBLEDO MD 466.0 Acute Bronchitis 02/17/2012 PAULA ROBLEDO MD 466.0 Acute Bronchitis 02/17/2012 PAULA ROBLEDO MD 466.0 Acute Bronchitis 02/17/2012 PAULA ROBLEDO MD 466.0 Acute Bronchitis 02/17/2012 PAULA ROBLEDO MD 466.0 Acute Bronchitis 02/17/2012 PAULA ROBLEDO MD 466.0 Acute Bronchitis 02/17/2012 MEENA BLAIR, PAULA 466.0 Acute Bronchitis 02/17/2012 MEENA BLAIR, PAULA 466.0 Acute Bronchitis 02/17/2012 MAJOR MILLIGAN DO 466.0 Acute Bronchitis 02/17/2012 MEENA BLAIR, PAULA 466.0 Acute Bronchitis 02/17/2012 THAI VIRGINIADUC 466 .0 Acute Bronchitis 02/17/2012 MEENA BLAIR, PAULA 466.0 Acute Bronchitis 02/17/2012 MEENA BLAIR, PAULA 466.0 Acute Bronchitis 02/17/2012 MEENA BLAIR, PAULA 466.0 Acute Bronchitis 02/17/2012 MEENA BLAIR, PAULA 466.0 Acute Bronchitis 02/17/2012 MEENA BLAIR, PAULA 466.0 Acute Bronchitis 02/17/2012 MEENA BLAIR, PAULA 466.0 Acute Bronchitis 02/17/2012 MEENA BLAIR, PAULA 466.0 Acute Bronchitis 02/17/2012 MEENA BLAIR, PAULA 466.0 Acute Bronchitis 02/17/2012 MEENA BLAIR, PAULA 466.0 Acute Bronchitis 02/17/2012 MEENA BLAIR, PAULA 466.0 Acute Bronchitis 07/07/2012 PAULA ROBLEDO MD 686.9 Unspecified Local Infection Of Skin And Subcutaneous Tissue 07/07/2012 PAULA ROBLEDO MD V11.3 PERSONAL HISTORY OF ALCOHOLISM 07/07/2012 PAULA ROBLEDO MD 686.9 Unspecified Local Infection Of Skin And Subcutaneous Tissue 07/07/2012 PAULA ROBLEDO MD V11.3 PERSONAL HISTORY OF ALCOHOLISM 07/07/2012 686.9 Unsp ecified Local Infection Of Skin And Subcutaneous Tissue 07/07/2012 V11.3 PERS ONAL HISTORY OF ALCOHOLISM 07/07/2012 686.9 Unsp ecified Local Infection Of Skin And Subcutaneous Tissue 07/07/2012 V11.3 PERS ONAL HISTORY OF ALCOHOLISM 07/07/2012 686.9 Unsp ecified Local Infection Of Skin And Subcutaneous Tissue 07/07/2012 V11.3 PERS ONAL HISTORY OF ALCOHOLISM 07/07/2012 NIRMAL VILLAVICENCIO APRN 686.9 Unspecified Local Infection Of Skin And Subcutaneous T issue 07/07/2012 NIRMAL VILLAVICENCIO APRN V11.3 PERSONAL HISTORY OF ALCOHOLISM 07/07/2012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 WEIGHT 02/22/2014 PAULA ROBLEDO MD 783.2 1 LOSS OF WEIGHT 02/22/2014 PAULA ROBLEDO MD 783.2 1 LOSS OF WEIGHT 02/22/2014 PAULA ROBLEDO MD 783.2 1 LOSS OF WEIGHT 02/22/2014 PAULA ROBLEDO MD 783.2 1 LOSS OF WEIGHT 02/22/2014 PAULA ROBLEDO MD 783.2 1 LOSS OF WEIGHT 02/22/2014 PAULA ROBLEDO MD 783.2 1 LOSS OF WEIGHT 02/22/2014 PAULA ROBLEDO MD 783.2 1 LOSS OF WEIGHT 02/22/2014 PAULA ROBLEDO MD 783.2 1 LOSS OF WEIGHT 02/22/2014 PAULA ROBLEDO MD 783.2 1 LOSS OF WEIGHT 03/09/2014 ERUM HORNER MD Ot 211.3 BENIGN NEOPLASM LG BOWEL 03/09/2014 ERUM HORNER MD Ot 455.0 INT HEMORRHOID W/O COMPL 03/09/2014 ERUM HORNER MD Ot V12.51 HX-VENOUS THROMBOSIS EMBOLISM 03/09/2014 ERUM HORNER MD Ot V58.69 OTH MED,LT,CURRENT USE 03/23/2014 MAJOR MILLIGAN DO Ot 276.8 HYPOPOTASSEMIA 03/23/2014 MAJOR MILLIGAN DO Ot 303.90 ALCOH DEP NEC/NOS-UNSPEC 03/23/2014 MAJOR MILLIGAN DO Ot 305.1 TOBACCO USE DISORDER 03/23/2014 MAJOR MILLIGAN DO Ot 305.20 CANNABIS ABUSE-UNSPEC 03/23/2014 MAJOR MILLIGAN DO Ot 311 DEPRESSIVE DISORDER NEC 03/23/2014 MAJOR MILLIGAN DO Ot 338.29 OTHER CHRONIC PAIN 03/23/2014 MAJOR MILLIGAN DO Ot 389.9 HEARING LOSS NOS 03/23/2014 MAJOR MILLIGAN DO Ot 459.81 VENOUS INSUFFICIENCY NOS 03/23/2014 MAJOR MILLIGAN DO Ot 724.5 BACKACHE NOS 03/23/2014 MAJOR MILLIGAN DO Ot 969.3 POISON-ANTIPSYCHOTIC NEC 03/23/2014 MAJOR MILLIGAN DO Ot 969.72 POISONING BY AMPHETAMINES 03/23/2014 MAJOR MILLIGAN DO Ot 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 03/23/2014 MAJOR MILLIGAN DO Ot E950.4 SUICIDE-DRUG/MEDICIN NEC 03/23/2014 MAJOR MILLIGAN DO Ot V12.51 HX-VENOUS THROMBOSIS EMBOLISM 06/03/2014 Ot 451.0 SUPE RFIC PHLEBITIS-LEG 06/06/2014 DUC ANDRE APRN 453 .6 VENOUS EMBOLISM AND THROMBOSIS OF SUPERFICIAL VESSELS OF LOWER EXTREMITY 06/06/2014 PAULA ROBLEDO MD 453.6 VENOUS EMBOLISM AND THROMBOSIS OF SUPERFICIAL VESSELS OF LOWER EXTREMITY 06/06/2014 PAULA ROBLEDO MD 453.6 VENOUS EMBOLISM AND THROMBOSIS OF SUPERFICIAL VESSELS OF LOWER EXTREMITY 06/06/2014 PAULA ROBLEDO MD 453.6 VENOUS EMBOLISM AND THROMBOSIS OF SUPERFICIAL VESSELS OF LOWER EXTREMITY 06/06/2014 PAULA ROBLEDO MD 453.6 VENOUS EMBOLISM AND THROMBOSIS OF SUPERFICIAL VESSELS OF LOWER EXTREMITY 06/06/2014 PAULA ROBLEDO MD 453.6 VENOUS EMBOLISM AND THROMBOSIS OF SUPERFICIAL VESSELS OF LOWER EXTREMITY 06/06/2014 PAULA ROBLEDO MD 453.6 VENOUS EMBOLISM AND THROMBOSIS OF SUPERFICIAL VESSELS OF LOWER EXTREMITY 06/06/2014 PAULA ROBLEDO MD 453.6 VENOUS EMBOLISM AND THROMBOSIS OF SUPERFICIAL VESSELS OF LOWER EXTREMITY 06/06/2014 PAULA ROBLEDO MD 453.6 VENOUS EMBOLISM AND THROMBOSIS OF SUPERFICIAL VESSELS OF LOWER EXTREMITY 06/06/2014 PAULA ROBLEDO MD 453.6 VENOUS EMBOLISM AND THROMBOSIS OF SUPERFICIAL VESSELS OF LOWER EXTREMITY 06/08/2014 SARAH BANERJEE MD Ot 305 .1 TOBACCO USE DISORDER 06/08/2014 SARAH BANERJEE MD Ot 389 .7 DEAF, NONSPEAKING, NOT ELSEWHERE CLASSIF 06/08/2014 SARAH BANERJEE MD Ot 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 06/08/2014 SARAH BANERJEE MD Ot 453 .6 VENOUS EMBOLISM THROMBOSIS OF SUPERFIC 06/13/2014 PAULA ROBLEDO MD 451.0 PHLEBITIS AND THROMBOPHLEBITIS OF SUPERFICIAL VESSELS OF LOWER EXTREMITIES 06/13/2014 PAULA ROBLEDO MD 451.0 PHLEBITIS AND THROMBOPHLEBITIS OF SUPERFICIAL VESSELS OF LOWER EXTREMITIES 06/13/2014 PAULA ROBLEDO MD 451.0 PHLEBITIS AND THROMBOPHLEBITIS OF SUPERFICIAL VESSELS OF LOWER EXTREMITIES 06/13/2014 PAULA ROBLEDO MD 451.0 PHLEBITIS AND THROMBOPHLEBITIS OF SUPERFICIAL VESSELS OF LOWER EXTREMITIES 06/13/2014 PAULA ROBLEDO MD 451.0 PHLEBITIS AND THROMBOPHLEBITIS OF SUPERFICIAL VESSELS OF LOWER EXTREMITIES 06/13/2014 PAULA ROBLEDO MD 451.0 PHLEBITIS AND THROMBOPHLEBITIS OF SUPERFICIAL VESSELS OF LOWER EXTREMITIES 06/13/2014 PAULA ROBLEDO MD 451.0 PHLEBITIS AND THROMBOPHLEBITIS OF SUPERFICIAL VESSELS OF LOWER EXTREMITIES 06/13/2014 PAULA ROBLEDO MD 451.0 PHLEBITIS AND THROMBOPHLEBITIS OF SUPERFICIAL VESSELS OF LOWER EXTREMITIES 06/13/2014 PAULA ROBLEDO MD 451.0 PHLEBITIS AND THROMBOPHLEBITIS OF SUPERFICIAL VESSELS OF LOWER EXTREMITIES 06/28/2014 SANDRA MANE MD Ot 305.00 ALCOHOL ABUSE-UNSPEC 06/28/2014 SANDRA MANE MD Ot 305.1 TOBACCO USE DISORDER 06/28/2014 SANDRA MANE MD Ot 311 DEPRESSIVE DISORDER NEC 06/28/2014 SANDRA MANE MD Ot 338.29 OTHER CHRONIC PAIN 06/28/2014 SANDRA MANE MD Ot 389.9 HEARING LOSS NOS 06/28/2014 SANDRA MANE MD Ot 724.5 BACKACHE NOS 06/28/2014 SANDRA MANE MD Ot 784.59 OTHER SPEECH DISTURBANCE 06/28/2014 SANDRA MANE MD Ot V12.51 HX-VENOUS THROMBOSIS EMBOLISM 06/28/2014 SANDRA MANE MD Ot V58.66 LONG-TERM (CURRENT) USE OF ASPIRIN 06/28/2014 SANDRA MANE MD Ot V58.69 OTH MED,LT,CURRENT USE 07/04/2014 PAULA ROBLEDO MD 728.8 7 MUSCLE WEAKNESS (GENERALIZED) 07/04/2014 PAULA ROBLEDO MD 728.8 7 MUSCLE WEAKNESS (GENERALIZED) 07/04/2014 PAULA ROBLEDO MD 728.8 7 MUSCLE WEAKNESS (GENERALIZED) 07/04/2014 PAULA ROBLEDO MD 728.8 7 MUSCLE WEAKNESS (GENERALIZED) 07/04/2014 PAULA ROBLEDO MD 728.8 7 MUSCLE WEAKNESS (GENERALIZED) 07/04/2014 PAULA ROBLEDO MD 728.8 7 MUSCLE WEAKNESS (GENERALIZED) 07/04/2014 PAULA ROBLEDO MD 72Iraj.8 7 MUSCLE WEAKNESS (GENERALIZED) 07/04/2014 PAULA ROBLEDO MD 728.8 7 MUSCLE WEAKNESS (GENERALIZED) 07/12/2014 PAULA ROBLEDO MD Ot 719.47 JOINT PAIN-ANKLE 07/12/2014 PAULA ROBLEDO MD Ot V57 .1 PHYSICAL THERAPY NEC 07/12/2014 PAULA ROBLEDO MD, Ot V58.43 AFTERCARE POST SURGERY INJURY/TRAUMA 07/28/2014 PAULA ROBLEDO MD 372.3 0 CONJUNCTIVITIS UNSPECIFIED 07/28/2014 PAULA ROBLEDO MD.9 OTHER AND UNSPECIFIED NONINFECTIOUS GASTROENTERITIS AND COLITIS 07/28/2014 PAULA ROBLEDO MD 372.3 0 CONJUNCTIVITIS UNSPECIFIED 07/28/2014 PAULA ROBLEDO MD.9 OTHER AND UNSPECIFIED NONINFECTIOUS GASTROENTERITIS AND COLITIS 07/28/2014 PAULA ROBLEDO MD 372.3 0 CONJUNCTIVITIS UNSPECIFIED 07/28/2014 PAULA ROBLEDO MD.9 OTHER AND UNSPECIFIED NONINFECTIOUS GASTROENTERITIS AND COLITIS 07/28/2014 PAULA ROBLEDO MD 372.3 0 CONJUNCTIVITIS UNSPECIFIED 07/28/2014 PAULA ROBLEDO MD.9 OTHER AND UNSPECIFIED NONINFECTIOUS GASTROENTERITIS AND COLITIS 07/28/2014 PAULA ROBLEDO MD 372.3 0 CONJUNCTIVITIS UNSPECIFIED 07/28/2014 PAULA ROBLEDO MD.9 OTHER AND UNSPECIFIED NONINFECTIOUS GASTROENTERITIS AND COLITIS 07/28/2014 PAULA ROBLEDO MD 372.3 0 CONJUNCTIVITIS UNSPECIFIED 07/28/2014 PAULA ROBLEDO MD.9 OTHER AND UNSPECIFIED NONINFECTIOUS GASTROENTERITIS AND COLITIS 07/28/2014 PAULA ROBLEDO MD 372.3 0 CONJUNCTIVITIS UNSPECIFIED 07/28/2014 PAULA ROBLEDO MD.9 OTHER AND UNSPECIFIED NONINFECTIOUS GASTROENTERITIS AND COLITIS 09/05/2014 ASTON COLEMAN DO Ot 729.5 PAIN IN LIMB 09/19/2014 PAULA ROBLEDO MD 466.0 ACUTE BRONCHITIS 09/19/2014 PAULA ROBLEDO MD 466.0 ACUTE BRONCHITIS 09/19/2014 PAULA ROBLEDO MD 466.0 ACUTE BRONCHITIS 09/19/2014 PAULA ROBLEDO MD 466.0 ACUTE BRONCHITIS 09/19/2014 PAULA ROBLEDO MD 466.0 ACUTE BRONCHITIS 11/01/2014 PAULA ROBLEDO MD 327.5 2 SLEEP RELATED LEG CRAMPS 11/01/2014 PAULA ROBLEDO MD 327.5 2 SLEEP RELATED LEG CRAMPS 11/01/2014 PAULA ROBLEDO MD 327.5 2 SLEEP RELATED LEG CRAMPS 11/01/2014 PAULA ROBLEDO MD 327.5 2 SLEEP RELATED LEG CRAMPS 11/17/2014 Ot 443.9 11/17/2014 Ot 729.5 11/17/2014 Ot 729.81 11/17/2014 Ot 453.40 11/17/2014 Ot V58.69 11/17/2014 Ot V58.83 11/17/2014 PAULA ROBLEDO MD Ot 289.50 11/17/2014 PAULA ROBLEDO MD Ot 599.70 11/17/2014 PAULA ROBLEDO MD Ot 789.09 11/17/2014 PAULA ROBLEDO MD Ot 793 .4 11/17/2014 SIRI BLAIR, TAKKI Ot V72.84 11/17/2014 DUC ANDRE RN ANESTHETIST Ot 453 .6 11/17/2014 Ot 719.47 11/17/2014 Ot V57.1 11/17/2014 Ot V58.43 11/17/2014 SHRAVAN PEPPER APRN Ot 724 .2 LUMBAGO 11/17/2014 SHRAVAN PEPPER SEO CONSULTANT Ot 724 .4 LUMBOSACRAL NEURITIS NOS 02/16/2015 PAULA ROBLEDO MD 845.0 0 UNSPECIFIED SITE OF ANKLE SPRAIN 02/16/2015 PAULA ROBLEDO MD 845.0 0 UNSPECIFIED SITE OF ANKLE SPRAIN 03/14/2015 PAULA ROBLEDO MD 786.5 0 UNSPECIFIED CHEST PAIN 07/08/2017 DUC ANDRE RN ANESTHETIST Ot 453 .6 VENOUS EMBOLISM THROMBOSIS OF SUPERFIC 07/06/2019 PAULA ROBLEDO MD Ot 289.50 SPLEEN DISEASE NOS 07/06/2019 PAULA ROBLEDO MD Ot 599.70 HEMATURIA, UNSPECIFIED 07/06/2019 PAULA ROBLEDO MD Ot 789.09 ABDOMINAL PAIN, OTHER SPECIFIED SITE 07/06/2019 PAULA ROBLEDO MD Ot 793 .4 NOSP (ABN) FINDINGS ON RADIOLOGICAL OT 07/06/2019 ERUM HORNER MD Ot V72.84 EXAM PRE-OPERATIVE NOS 07/06/2019 MADDUC Reese RN ANESTHETIST Ot 453 .6 VENOUS EMBOLISM THROMBOSIS OF SUPERFIC 07/06/2019 Ot 719.47 FALGUNI NT PAIN-ANKLE 07/06/2019 Ot V57.1 PHYS ICAL THERAPY NEC 07/06/2019 Ot V58.43 AFT ERCARE POST SURGERY INJURY/TRAUMA 07/07/2019 DEISY AMANDA MD Ot E86.1 HYPOVOLEMIA 07/07/2019 DEISY AMANDA MD, Ot F32.9 MAJOR DEPRESSIVE DISORDER, SINGLE EPISOD 07/07/2019 DEISY AMANDA MD, Ot I73.9 PERIPHERAL VASCULAR DISEASE, UNSPECIFIED 07/07/2019 DEISY AMANDA MD, Ot N17.9 ACUTE KIDNEY FAILURE, UNSPECIFIED 07/07/2019 DEISY AMANDA MD, Ot N39.0 URINARY TRACT INFECTION, SITE NOT SPECIF 07/07/2019 DEISY AMANDA MD, Ot R25.2 CRAMP AND SPASM 07/07/2019 DEISY AMANDA MD Ot Z79.82 ALF (CURRENT) USE OF ASPIRIN 07/07/2019 DEISY AMANDA MD, Ot Z82.49 FAMILY HX OF ISCHEM HEART DIS AND OTH DI 07/07/2019 DEISY AMANDA MD, Ot Z86.718 PERSONAL HISTORY OF OTHER VENOUS THROMBO 07/07/2019 DEISY AMANDA MD, Ot Z98.890 OTHER SPECIFIED POSTPROCEDURAL STATES 07/07/2019 PAULA ROBLEDO MD Ot 289.50 SPLEEN DISEASE NOS 07/07/2019 PAULA ROBLEDO MD Ot 599.70 HEMATURIA, UNSPECIFIED 07/07/2019 MEENA BLAIR, PAULA Bowers Ot 789.09 ABDOMINAL PAIN, OTHER SPECIFIED SITE 07/07/2019 MEENA BLAIR, PAULA Bowers Ot 793 .4 NOSP (ABN) FINDINGS ON RADIOLOGICAL OT 07/07/2019 ERUM HORNER MD, Ot V72.84 EXAM PRE-OPERATIVE NOS 07/07/2019 MADL, DUC Hugh RN ANESTHETIST Ot 453 .6 VENOUS EMBOLISM THROMBOSIS OF SUPERFIC 07/07/2019 Ot 719.47 FALGUNI NT PAIN-ANKLE 07/07/2019 Ot V57.1 PHYS ICAL THERAPY NEC 07/07/2019 Ot V58.43 AFT ERCARE POST SURGERY INJURY/TRAUMA 07/09/2019 DEISY AMANDA MD Ot E86.1 HYPOVOLEMIA 07/09/2019 DEISY AMANDA MD Ot F32.9 MAJOR DEPRESSIVE DISORDER, SINGLE EPISOD 07/09/2019 DEISY AMANDA MD Ot I73.9 PERIPHERAL VASCULAR DISEASE, UNSPECIFIED 07/09/2019 DEISY AMANDA MD Ot N17.9 ACUTE KIDNEY FAILURE, UNSPECIFIED 07/09/2019 DEISY AMANDA MD Ot N39.0 URINARY TRACT INFECTION, SITE NOT SPECIF 07/09/2019 DEISY AMANDA MD Ot R25.2 CRAMP AND SPASM 07/09/2019 DEISY AMANDA MD Ot Z79.82 ALF (CURRENT) USE OF ASPIRIN 07/09/2019 DEISY AMANDA MD Ot Z82.49 FAMILY HX OF ISCHEM HEART DIS AND OTH DI 07/09/2019 DEISY AMANDA MD Ot Z86.718 PERSONAL HISTORY OF OTHER VENOUS THROMBO 07/09/2019 DEISY AMANDA MD Ot Z98.890 OTHER SPECIFIED POSTPROCEDURAL STATES 08/03/2019 ERUM HORNER MD Ot V72.84 EXAM PRE-OPERATIVE NOS 08/03/2019 DUC ANDRE Ot 453 .6 VENOUS EMBOLISM THROMBOSIS OF SUPERFIC 08/03/2019 Ot 719.47 FALGUNI NT PAIN-ANKLE 08/03/2019 Ot V57.1 PHYS ICAL THERAPY NEC 08/03/2019 Ot V58.43 AFT ERCARE POST SURGERY INJURY/TRAUMA Procedures Code [place] [address] ROUT INE VENIPUNCTURE 10/06/2012 02893 A1C (IN-HOUSE) 10/06/2012 24523 CBC 10/06/2012 33559 INSU ALLI LEVEL 10/07/2012 64632 ROUT INE VENIPUNCTURE 05/11/2013 63062 CBC 05/11/2013 81255 CMP 05/11/2013 0927052 GF R CALC (RESULT ONLY) 05/11/2013 23008 THER APUTIC INJ SQ/IM 06/24/2013 J2550 PHEN ERGAN INJECTION UP TO 50 MG 06/24/2013 95994 ROUT INE VENIPUNCTURE 07/15/2013 33377 BMP 07/15/2013 [id number] GF R CALC (RESULT ONLY) 07/15/2013 22573 STRE P A (IN-HOUSE) 08/18/2013 65481 INFL UENZA A & B (IN-HOUSE) 10/14/2013 38515 OXIMETRY 10/14/2013 Podiatry W ilde, Pari 01/03/2014 71925 ROUT INE VENIPUNCTURE 01/18/2014 39406 LIVE R PANEL (LFT) 01/18/2014 43275 UA W / CULTURE IF INDICATED 02/07/[address] A BDOMEN & PELVIS W/O CONTRAST 02/07/2014 65107 ROUT INE VENIPUNCTURE 02/15/2014 32243 LIVE R PANEL (LFT) 02/15/2014 95049 ROUT INE VENIPUNCTURE 02/22/2014 General S Kido, Luciano 02/22/2014 85826 UA W / CULTURE IF INDICATED 02/22/2014 63279 CBC 02/22/2014 1199593 GF R CALC (RESULT ONLY) 02/22/2014 27310 CMP 02/22/2014 32814 CRP 02/22/2014 72238 ROUT INE VENIPUNCTURE 04/07/2014 92436 CBC 04/07/2014 12039 CRP 04/07/2014 74184 KAROLYN AC DISEASE ANALYZER 04/08/[id number] OOL FOR BACTERIAL PATHOGENS 04/14/2014 21585 STOO L FOR O & P 04/14/2014 00468 CLOS TRIDIUM (C-DIFF) 04/14/2014 02901 STOO L FOR POLYS & LEUKOCYTES 04/14/2014 04099 US V ENOUS DOPPLER (DVT EVAL) 06/06/2014 43254 ROUT INE VENIPUNCTURE 07/04/2014 64321 CBC 07/04/2014 12168 ROUT INE VENIPUNCTURE 08/18/2014 17983 BMP 08/18/2014 8917264 GF R CALC (RESULT ONLY) 08/18/2014 13297 ROUT INE VENIPUNCTURE 01/05/2015 1306704 GF R CALC (RESULT ONLY) 01/05/2015 84845 BMP 01/05/2015 88782 XRAY ANKLE R, 2 VIEWS 02/16/2015 Results Test Result Range Comp. Metabolic Panel (14) - 11/07/16 10 :07 Glucose, Serum 97 mg/dL 65-99 BUN 6 mg/dL 6-24 Creatinine, Serum 0.85 mg/dL 0.76-1.27 eGFR If NonAfricn Am 108 mL/min/1.73 >59 eGFR If Africn Am 125 mL/min/1.73 >5 9 BUN/Creatinine Ratio 7 9-20 Sodium, Serum 142 mmol/L 134-144 Potassium, Serum 4.1 mmol/L 3.5-5.2 Chloride, Serum 98 mmol/L 96-106 Carbon Dioxide, Total 27 mmol/L 18-29 Calcium, Serum 9.3 mg/dL 8.7-10.2 Protein, Total, Serum 6.9 g/dL 6.0-8.5 Albumin, Serum 4.3 g/dL 3.5-5.5 Globulin, Total 2.6 g/dL 1.5-4.5 A/G Ratio 1.7 1.1-2.5 Bilirubin, Total 0.3 mg/dL 0.0-1.2 Alkaline Phosphatase, S 84 IU/L 39-117 AST (SGOT) 24 IU/L 0-40 ALT (SGPT) 19 IU/L 0-44 [facility] - 09/29/17 10:45 GLUCOSE 200 mg/dL 65-99 UREA NITROGEN (BUN) 11 mg/dL 7-25 CREATININE 0.94 mg/dL 0.60-1.35 eGFR NON-AFR. [place] 100 mL/min/1.73m2 > OR = 60 eGFR 115 mL/min/1.73m2 > OR = 60 BUN/CREATININE RATIO NOT APPLICABLE (calc) 6-22 SODIUM 140 mmol/L 135-146 POTASSIUM 3.5 mmol/L 3.5-5.3 CHLORIDE 101 mmol/L 98-110 CARBON DIOXIDE 34 mmol/L 20-31 CALCIUM 9.3 mg/dL 8.6-10.3 [facility] - 05/04/18 14:16 GLUCOSE 154 mg/dL 65-99 UREA NITROGEN (BUN) 10 mg/dL 7-25 CREATININE 0.92 mg/dL 0.60-1.35 eGFR NON-AFR. [place] 102 mL/min/1.73m2 > OR = 60 eGFR 118 mL/min/1.73m2 > OR = 60 BUN/CREATININE RATIO NOT APPLICABLE (calc) 6-22 SODIUM 141 mmol/L 135-146 POTASSIUM 3.2 mmol/L 3.5-5.3 CHLORIDE 102 mmol/L 98-110 CARBON DIOXIDE 28 mmol/L 20-31 CALCIUM 9.5 mg/dL 8.6-10.3 [facility] - 08/21/18 15:27 GLUCOSE 97 mg/dL 65-99 UREA NITROGEN (BUN) 7 mg/dL 7-25 CREATININE 0.93 mg/dL 0.60-1.35 eGFR NON-AFR. [place] 100 mL/min/1.73m2 > OR = 60 eGFR 116 mL/min/1.73m2 > OR = 60 BUN/CREATININE RATIO NOT APPLICABLE (calc) 6-22 SODIUM 138 mmol/L 135-146 POTASSIUM 4.3 mmol/L 3.5-5.3 CHLORIDE 102 mmol/L 98-110 CARBON DIOXIDE 32 mmol/L 20-32 CALCIUM 9.9 mg/dL 8.6-10.3 [facility] - 02/15/19 14:57 GLUCOSE 103 mg/dL 65-99 UREA NITROGEN (BUN) 12 mg/dL 7-25 CREATININE 0.97 mg/dL 0.60-1.35 eGFR NON-AFR. [place] 95 mL/min/1.73m2 > OR = 60 eGFR 110 mL/min/1.73m2 > OR = 60 BUN/CREATININE RATIO NOT APPLICABLE (calc) 6-22 SODIUM 140 mmol/L 135-146 POTASSIUM 4.2 mmol/L 3.5-5.3 CHLORIDE 103 mmol/L 98-110 CARBON DIOXIDE 30 mmol/L 20-32 CALCIUM 10.4 mg/dL 8.6-10.3 Complete blood count (CBC) with automate d white blood cell (WBC) differential - 07/06/19 20:35 Blood leukocytes automated count (number/volume) 14.5 10*3/uL 4.3-11.0 Blood erythrocytes automated count (number/volume) 5.37 10*6/uL 4.35-5.85 Venous blood hemoglobin measurement (mass/volume) 17.2 g/dL 13.3-17.7 Blood hematocrit (volume fraction) 49 % 40-54 Automated erythrocyte mean corpuscular volume 91 [ foz_us] 80-99 Automated erythrocyte mean corpuscular h emoglobin (mass per erythrocyte) 32 pg 25-34 Automated erythrocyte mean corpuscular h emoglobin concentration measurement (mass/volume) 35 g/dL 32-36 Automated erythrocyte distribution width ratio 13. 2 % 10.0- 14.5 Automated blood platelet count (count/volume) 342 10*3/uL 130-400 Automated blood platelet mean volume measurement 9.5 [foz_us] 7.4-10.4 Automated blood neutrophils/100 leukocytes 64 % 42-75 Automated blood lymphocytes/100 leukocytes 24 % 12-44 Blood monocytes/100 leukocytes 9 % 0-12 Automated blood eosinophils/100 leukocytes 3 % 0-10 Automated blood basophils/100 leukocytes 0 % 0-10 Blood neutrophils automated count (number/volume) 9.3 10*3 1.8-7.8 Blood lymphocytes automated count (number/volume) 3.4 10*3 1.0-4.0 Blood monocytes automated count (number/volume) 1. 3 10*3 0.0-1.0 Automated eosinophil count 0.5 10*3/uL 0 .0-0.3 Automated blood basophil count (count/volume) 0.0 10*3/uL 0.0-0.1 Comprehensive metabolic panel - 07/06/19 20:35 Serum or plasma sodium measurement (moles/volume) 138 mmol/L 135-145 Serum or plasma potassium measurement (moles/volume) 3.5 mmol/L 3.6-5.0 Serum or plasma chloride measurement (moles/volume) 98 mmol/L 98-107 Carbon dioxide 25 mmol/L 21-32 Serum or plasma anion gap determination (moles/volume) 15 mmol/L 5-14 Serum or plasma urea nitrogen measurement (mass/volume ) 14 mg/dL 7-18 Serum or plasma creatinine measurement (mass/volume) 1.62 mg/dL 0.60-1.30 Serum or plasma urea nitrogen/creatinine mass ratio 9 NRG Serum or plasma creatinine measurement w ith calculation of estimated glomerular filtration rate 47 NRG Serum or plasma glucose measurement (mass/volume) 150 mg/dL 70-105 Serum or plasma calcium measurement (mass/volume) 9.9 mg/dL 8.5-10.1 Serum or plasma total bilirubin measurement (mass/volu me) 0.5 mg/dL 0.1-1.0 Serum or plasma alkaline phosphatase eva surement (enzymatic activity/volume) 115 U/L 40-136 Serum or plasma aspartate aminotransfera se measurement (enzymatic activity/volume) 30 U/L 5-34 Serum or plasma alanine aminotransferase measurement (enzymatic activity/volume) 25 U/L 0-55 Serum or plasma protein measurement (mass/volume) 9.2 g/dL 6.4-8.2 Serum or plasma albumin measurement (mass/volume) 4.9 g/dL 3.2-4.5 Magnesium - 07/06/19 20:35 Magnesium 1.9 mg/dL 1.6-2.4 Serum or plasma creatine kinase measurem ent (enzymatic activity/volume) - 07/06/19 20:35 Serum or plasma creatine kinase measurem ent (enzymatic activity/volume) 605 U/L 30-200 Complete urinalysis with reflex to cultu re - 07/06/19 22:03 Urine color determination BETTINA NRG Urine clarity determination VERY CLOUDY NRG Urine pH measurement by test strip 5 5-9 Specific gravity of urine by test strip 1.025 1.016-1.022 Urine protein assay by test strip, semi-quantitative 3+ NEGATIVE Urine glucose detection by automated test strip NE GATIVE NEGATIVE Erythrocytes detection in urine sediment by light micr oscopy 2+ NEGATIVE Urine ketones detection by automated test strip NE GATIVE NEGATIVE Urine nitrite detection by test strip NEGATIVE NEGATIVE Urine total bilirubin detection by test strip NEGA TIVE NEGATIVE Urine urobilinogen measurement by automated test strip (mass/volume) 1 mg/dL NORMAL Urine leukocyte esterase detection by dipstick 1+ NEGATIVE Automated urine sediment erythrocyte cou nt by microscopy (number/high power field) NONE NRG Automated urine sediment leukocyte count by microscopy (number/high power field) [HPF] NRG Bacteria detection in urine sediment by light microsco py MODERATE NRG Squamous epithelial cells detection in u rine sediment by light microscopy NONE NRG Crystals detection in urine sediment by light microsco py NONE NRG Casts detection in urine sediment by light microscopy NONE NRG Mucus detection in urine sediment by light microscopy LARGE NRG Complete urinalysis with reflex to culture YES NRG Bacterial urine culture - 07/06/19 22:03 Bacterial urine culture 3 OR MORE NRG COLONY COUNT 30,000 CFU/ML NRG FTX;REPORTABLE GRAM POSITIVES, SUGGESTING PROBABLE NRG FREE TEXT ENTRY 2 COLLECTION CONTAMINATION WITH SK IN NAHOMY NRG FREE TEXT ENTRY 3 NO SUSCEPTIBILITY PERFORMED NRG BMP - 07/09/19 12:06 GLUCOSE 117 mg/dL 65-139 UREA NITROGEN (BUN) 14 mg/dL 7-25 CREATININE 1.00 mg/dL 0.60-1.35 eGFR NON-AFR. [place] 91 mL/min/1.73m2 > OR = 60 eGFR 106 mL/min/1.73m2 > OR = 60 BUN/CREATININE RATIO NOT APPLICABLE (calc) 6-22 SODIUM 139 mmol/L 135-146 POTASSIUM 4.5 mmol/L 3.5-5.3 CHLORIDE 102 mmol/L 98-110 CARBON DIOXIDE 29 mmol/L 20-32 CALCIUM 9.5 mg/dL 8.6-10.3 CMP - 12/13/19 10:06 GLUCOSE 97 mg/dL 65-99 UREA NITROGEN (BUN) 16 mg/dL 7-25 CREATININE 1.07 mg/dL 0.60-1.35 eGFR NON-AFR. [place] 84 mL/min/1.73m2 > OR = 60 eGFR 97 mL/min/1.73m2 > OR = 60 BUN/CREATININE RATIO NOT APPLICABLE (calc) 6-22 SODIUM 140 mmol/L 135-146 POTASSIUM 4.3 mmol/L 3.5-5.3 CHLORIDE 101 mmol/L 98-110 CARBON DIOXIDE 31 mmol/L 20-32 CALCIUM 10.6 mg/dL 8.6-10.3 PROTEIN, TOTAL 8.1 g/dL 6.1-8.1 ALBUMIN 4.9 g/dL 3.6-5.1 GLOBULIN 3.2 g/dL (calc) 1.9-3.7 ALBUMIN/GLOBULIN RATIO 1.5 (calc) 1.0-2. 5 BILIRUBIN, TOTAL 0.6 mg/dL 0.2-1.2 ALKALINE PHOSPHATASE 89 U/L 40-115 AST 23 U/L 10-40 ALT 17 U/L 9-46 Encounters ACCT No. Visit Date/Time Discharge Status Pt. Type Provider Facility Loc./Unit Complaint [id number] 11/08/2016 08:36:00 Document Registration [id number] 12/13/2019 10:00:00 12/13/2019 23:59: 59 CLS Outpatient PAULA ROBLEDO MD [facility] [id number] 12/13/2019 10:00:00 Document Registration [id number] 07/09/2019 11:40:00 Document Registration [id number] 02/15/2019 14:20:00 Document Registration [id number] 08/21/2018 15:00:00 Document Registration [id number] 05/04/2018 13:40:00 Document Registration [id number] 09/29/2017 10:20:00 Document Registration [id number] 03/14/2015 14:12:00 03/14/2015 23:59: 59 CLS Outpatient PAULA ROBLEDO MD [id number] 02/16/2015 10:53:00 02/16/2015 23:59: 59 CLS Outpatient PAULA ROBLEDO MD [id number] 01/05/2015 11:09:00 01/05/2015 23:59: 59 CLS Outpatient PAULA ROBLEDO MD [id number] 11/01/2014 13:52:00 11/01/2014 23:59: 59 CLS Outpatient PAULA ROBLEDO MD [id number] 09/19/2014 16:32:00 09/19/2014 23:59: 59 CLS Outpatient PAULA ROBLEDO MD [id number] 08/18/2014 09:50:00 08/18/2014 23:59: 59 CLS Outpatient PAULA ROBLEDO MD [id number] 07/28/2014 15:54:00 07/28/2014 23:59: 59 CLS Outpatient PAULA ROBLEDO MD [id number] 07/04/2014 09:45:00 07/04/2014 23:59: 59 CLS Outpatient PAULA ROBLEDO MD [id number] 06/13/2014 14:59:00 06/13/2014 23:59: 59 CLS Outpatient PAULA ROBLEDO MD [id number] 06/06/2014 15:29:00 06/06/2014 23:59: 59 CLS Outpatient DUC ANDRE APRN [id number] 04/11/2014 15:42:00 04/11/2014 23:59: 59 CLS Outpatient PAULA ROBLEDO MD [id number] 03/22/2014 10:00:00 03/22/2014 23:59: 59 CLS Outpatient MAJOR MILLIGAN DO [id number] 02/22/2014 13:28:00 02/22/2014 23:59: 59 CLS Outpatient PAULA ROBLEDO MD [id number] 02/15/2014 10:36:00 02/15/2014 23:59: 59 CLS Outpatient PAULA ROBLEDO MD [id number] 02/07/2014 11:49:00 02/07/2014 23:59: 59 CLS Outpatient PAULA ROBLEDO MD [id number] 01/18/2014 14:43:00 01/18/2014 23:59: 59 CLS Outpatient PAULA ROBLEDO MD [id number] 01/03/2014 11:53:00 01/03/2014 23:59: 59 CLS Outpatient PAULA ROBLEDO MD [id number] 12/17/2013 16:14:00 12/17/2013 23:59: 59 CLS Outpatient PAULA ROBLEDO MD [id number] 10/14/2013 08:34:00 10/14/2013 23:59: 59 CLS Outpatient PAULA ROBLEDO MD [id number] 10/14/2013 08:34:00 10/14/2013 23:59: 59 CLS Outpatient PAULA ROBLEDO MD [id number] 10/05/2013 09:35:00 10/05/2013 23:59: 59 CLS Outpatient PAULA ROBLEDO MD [id number] 09/16/2013 18:43:00 09/16/2013 23:59: 59 CLS Outpatient MAJOR MILLIGAN DO Price [id number] 08/18/2013 14:09:00 08/18/2013 23:59: 59 CLS Outpatient NIRMAL VILLAVICENCIO APRN [id number] 08/18/2013 14:09:00 08/18/2013 23:59: 59 CLS Outpatient NIRMAL VILLAVICENCIO APRN [id number] 02/12/2013 09:16:00 02/12/2013 23:59: 59 CLS Outpatient PAULA ROBLEDO MD [id number] 12/31/2012 11:13:00 12/31/2012 23:59: 59 CLS Outpatient PAULA ROBLEDO MD [id number] 10/06/2012 08:24:00 10/06/2012 23:59:5 9 CLS Outpatient MEENA BLAIR, PAULA [id number] 06/24/2013 16:05:00 Document Registration [id number] 06/24/2013 16:05:00 Document Registration [id number] 05/11/2013 15:28:00 Document Registration [id number] 07/06/2019 19:36:00 00:21:00 DIS Emergency VASILIY BLAIR, DEISY Lyons [facility] ER LEGS CRAMPING [id number] 11/17/2014 14:37:00 14:57:00 DIS Emergency PEPPERSHRAVAN GUERRERO [employer] [facility] ER BACK PAIN [id number] 09/05/2014 22:39:00 23:24:00 DIS Emergency ASTON COLEMAN DO [facility] ER BILAT FOOT PAIN, TENDER NESS [id number] 04/14/2014 15:43:00 00:01:00 DIS Outpatient PAULA ROBLEDO MD [facility] LAB DIARRHEA [id number] 06/28/2014 02:55:00 04:32:00 DIS Emergency SANDRA MANE MD [facility] ER AMS,ETOH [id number] 06/07/2014 10:47:00 13:40:00 DIS Inpatient LAVONNE BLAIR, SARAH Palmer [facility] 4TH DVT [id number] 06/07/2014 09:30:00 23:59:59 CLS Outpatient DUC ANDRE RN [facility] [facility] RAD RECHECK THYROMBIS GREAT ER THAN STAFFENOUS VEIN [id number] 03/22/2014 22:27:00 12:15:00 DIS Inpatient MAJOR MILLIGAN DO, V [facility] ICU DRUG OVERDOSE/SUICIDE A TTEMPT [id number] 03/09/2014 07:48:00 11:30:00 DIS Outpatient ERUM HORNER MD [facility] SDC BLOOD IN STOOL;HISTORY POLYPS [id number] 03/02/2014 07:17:00 014 23:59:59 CLS Outpatient ERUM HORNER MD [facility] PREOP BLOOD IN STOOL;DIARRHEA [id number] 02/08/2014 07:50:00 014 23:59:59 CLS Outpatient PAULA ROBLEDO MD [facility] RAD RT FLANK PAIN [id number] 02/05/2014 21:33:00 014 12:20:00 DIS Inpatient MILLIGAN DO, MAJOR K [facility] ICU OD, ALCOHOL INTOXICATIO N, HYPOKALEMIA AGITATION [id number] 01/04/2014 14:05:00 014 14:50:00 DIS Outpatient JANICE FRITZ [facility] WOUNDCARE [id number] 12/21/2013 00:59:00 014 10:15:00 DIS Inpatient PAULA ROBLEDO MD [facility] 4TH [id number] 11/17/2014 14:37:00 Document Registration [id number] 11/17/2014 14:37:00 Document Registration [id number] 11/17/2014 14:37:00 Document Registration [id number] 11/17/2014 14:37:00 Document Registration [id number] 11/17/2014 14:37:00 Document Registration [id number] 11/17/2014 14:37:00 Document Registration [id number] 07/13/2014 00:00:00 Document Registration [id number] 06/03/2014 21:34:00 Document Registration [id number] 09/02/2012 10:58:00 Document Registration [id number] 05/26/2011 19:44:00 Document Registration [id number] 03/12/2011 09:30:00 Document Registration [id number] 06/20/2010 22:48:00 Document Registration [id number] 06/06/2010 10:01:00 Document Registration [id number] 05/31/2010 15:10:00 Document Registration [id number] 04/10/2010 23:06:00 Document Registration [id number] 07/13/2009 14:22:00 Document Registration [id number] 04/12/2009 19:36:00 Document Registration
[2020-06-11 21:22] LABS: BASOPHILS % (AUTO) 0 % (0-10); EOSINOPHILS # (AUTO) 0.3 10^3/uL (0.0-0.3); EOSINOPHILS % (AUTO) 2 % (0-10); HEMATOCRIT 50 % (40-54); HEMOGLOBIN 17.9 G/DL (13.3-17.7); LYMPHOCYTES # (AUTO) 3.5 X 10^3 (1.0-4.0); LYMPHOCYTES % (AUTO) 25 % (12-44); MEAN CORPUSCULAR HEMOGLOBIN 32 PG (25-34); MEAN CORPUSCULAR HGB CONC 36 G/DL (32-36); MEAN CORPUSCULAR VOLUME 89 FL (80-99); MEAN PLATELET VOLUME 9.5 FL (7.4-10.4); MONOCYTES # (AUTO) 1.5 X 10^3 (0.0-1.0); MONOCYTES % (AUTO) 11 % (0-12); NEUTROPHILS # (AUTO) 8.3 X 10^3 (1.8-7.8); NEUTROPHILS % (AUTO) 61 % (42-75); PLATELET COUNT 395 10^3/uL (130-400); RED CELL DISTRIBUTION WIDTH 13.2 % (10.0-14.5); WHITE BLOOD COUNT 13.6 10^3/uL (4.3-11.0)
[2020-06-11 21:34] LABS: BILIRUBIN,URINE NEGATIVE (NEGATIVE); CLARITY,URINE SL CLOUDY; COLOR,URINE DARK YELLOW; GLUCOSE, URINE (UA) NEGATIVE (NEGATIVE); KETONES,URINE NEGATIVE (NEGATIVE); LEUKOCYTE ESTERASE ,URINE NEGATIVE (NEGATIVE); NITRITE,URINE NEGATIVE (NEGATIVE); PH,URINE 5.5 (5-9); PROTEIN,URINE 2+ (NEGATIVE)
[2020-06-11 21:35] LABS: ALBUMIN 4.8 GM/DL (3.2-4.5)
[2020-06-11 21:36] LABS: CHLORIDE 100 MMOL/L (98-107); POTASSIUM 3.4 MMOL/L (3.6-5.0); SODIUM 136 MMOL/L (135-145)
[2020-06-11 21:37] LABS: CALCIUM 9.7 MG/DL (8.5-10.1)
[2020-06-11 21:38] LABS: GLUCOSE 188 MG/DL (70-105); TOTAL PROTEIN 9.1 GM/DL (6.4-8.2)
[2020-06-11 21:39] LABS: CARBON DIOXIDE 19 MMOL/L (21-32)
[2020-06-11 21:40] LABS: BILIRUBIN,TOTAL 0.4 MG/DL (0.1-1.0)
[2020-06-11 21:41] LABS: ALKALINE PHOSPHATASE 82 U/L (40-136)
[2020-06-11 21:42] LABS: CREATININE SERUM 1.65 MG/DL (0.60-1.30); GFR ESTIMATED 45
[2020-06-11 21:43] LABS: BUN/CREATININE RATIO 14
[2020-06-11 21:44] LABS: BACTERIA,URINE TRACE /HPF; GRANULAR CASTS,URINE 0-2 /LPF; HYALINE CASTS, URINE 0-2 /LPF; RBC,URINE RARE /HPF; SQUAMOUS EPITHELIAL CELL,UR RARE /HPF; WBC,URINE 0-2 /HPF
[2020-06-11 21:45] LABS: ALANINE AMINOTRANSFERASE 19 U/L (0-55); MAGNESIUM 1.8 MG/DL (1.6-2.4)
[2020-06-11 21:46] LABS: CREATINE KINASE 502 U/L (30-200)
[2020-06-11] MEDS ORDERED: LACTATED RINGERS 1,000 ML IV ONE ×2 (21:50→21:51)
--- NOTE | 2020-06-11 22:15 | ED General ---
General Chief Complaint: Exposure Stated Complaint: BODY CRAMPS/ACHES Nursing Triage Note: Patient presented to the ER today with complaints of body aches and muscle cramps. Patients sister is at the bedside to assist with the patients care secondary to hearing impairment. Sister advises that the patient was previously seen secondary to dehydration. Nursing Sepsis Screen: No Definite Risk Source of Information: Patient, Family (family functions as a senior electrical design engineer) Exam Limitations: Language Barrier History of Present Illness Date Seen by Provider: Jun 11, 2020 Time Seen by Provider: 20:40 Initial Comments This 45-year-old gentleman presents to the emergency room with complaints of body aches and muscle cramps. He has been staying in a home without heat or air-conditioning and heat and humidity have been quite high recently. He feels like he is dehydrated. He denies any nausea, vomiting, or diarrhea. He denies any drug or alcohol use. His sister serves as a senior electrical design engineer. He had a similar episode last summer for which she visited the ER area and symptoms improved with IV hydration during that visit. At that time he was homeless. He has no fever, cough, shortness of breath, or other signs or symptoms of acute infectious illness. Allergies and Home Medications Allergies Coded Allergies: NKANo Known Allergies (Unverified Allergy, Mild, 04/22/09) No Known Drug Allergies (Verified , 12/07/07) Home Medications Aspirin 325 Mg Tab, 325 MG PO DAILY, (Reported) Carisoprodol 350 Mg Tablet, 350 MG PO DAILY PRN for MUSCLE SPASMS, (Reported) NEEDED FOR MUSCLE SPASMS Cephalexin 500 Mg Capsule, 500 MG PO TID Prescribed by: DEISY ZHAO on 07/07/19 0016 Diphenoxylate/Atropine 1 Tab Tablet, 1 TAB PO TID PRN for DIARRHEA, (Reported) NEEDED FOR DIARRHEA Disulfiram 500 Mg Tablet, 500 MG PO DAILY, (Reported) Enoxaparin 40 Mg/0.4 Ml Soln, 40 MG SC DAILY@12 Prescribed by: SARAH BANERJEE on 06/08/14 1200 Escitalopram Oxalate 20 Mg Tablet, 20 MG PO DAILY, (Reported) Escitalopram Oxalate 10 Mg Tablet, 10 MG PO DAILY, (Reported) Furosemide 40 Mg Tablet, 40 MG PO DAILY, (Reported) Hydrocodone Bit/Acetaminophen 1 Each Tablet, 1 TAB PO Q6H PRN for PAIN, (Reported) NEEDED FOR PAIN Hydrocodone Bit/Acetaminophen 1 Tab Tablet, 1-2 TAB PO Q6H PRN for PAIN Prescribed by: SHRAVAN PEPPER on 11/17/141449 Mometasone Furoate 15 Gm Cream.gm., 15 GM TP TID Prescribed by: ASTON COLEMAN on 09/05/142316 Naproxen 500 Mg Tablet, 1 EACH PO TID PRN for PAIN FOR PAIN Prescribed by: ASTON COLEMAN on 09/05/142316 Nisoldipine 34 Mg Tab.sr.24h, 34 MG PO DAILY, (Reported) Potassium Chloride 10 Meq Tablet.sa, 10 MEQ PO TID, (Reported) Prednisone 10 Mg Tablet, 40 MG PO DAILY Prescribed by: SHRAVAN PEPPER on 11/17/141449 Pregabalin 100 Mg Capsule, 100 MG PO DAILY, (Reported) Vardenafil Hcl 20 Mg Tablet, 20 MG PO DAILY PRN for ED, (Reported) NEEDED FOR ERECTILE DYSFUNCTION Patient Home Medication List Home Medication List Reviewed: Yes Review of Systems Review of Systems Constitutional: no symptoms reported EENTM: no symptoms reported Respiratory: no symptoms reported Cardiovascular: no symptoms reported Gastrointestinal: no symptoms reported Genitourinary: no symptoms reported Musculoskeletal: see HPI Skin: no symptoms reported Psychiatric/Neurological: No Symptoms Reported Hematologic/Lymphatic: No Symptoms Reported Immunological/Allergic: no symptoms reported Past Xzcrtwk-[id number]-[id number] Hx Past Med/Social Hx: Reviewed Nursing Past Med/Soc Hx Patient Social History Alcohol Use: Occasionally Uses Recreational Drug Use: Yes (when younger) Smoking Status: Current Everyday Smoker Type Used: Cigarettes 2nd Hand Smoke Exposure: Yes Recent Foreign Travel: No Contact w/Someone Who Travel: No Recent Infectious Disease Expo: No Recent Hopitalizations: Yes (hernia surgeries) Immunizations Up To Date Tetanus Booster (TDap): Unknown Date of Pneumonia Vaccine: Nov 24, 2009 Date of Influenza Vaccine: Sep 20, 2013 Past Medical History Surgeries: Yes Abdominal Respiratory: No Cardiac: Yes Deep Vein Thrombosis, Peripheral Vascular Neurological: No Reproductive Disorders: No Genitourinary: No Gastrointestinal: No Musculoskeletal: Yes Chronic Back Pain Endocrine: No HEENT: No Hearing Impairment: Deaf Cancer: No Psychosocial: Yes Depression Integumentary: Yes (history of cellulitis) Blood Disorders: Yes (blood clot in legs in 20s) Adverse Reaction/Blood Tranf: No Family Medical History Reviewed Nursing Family Hx Congestive heart failure 03 MOTHER 09 SISTER Family history: Arthritis 03 MOTHER 09 SISTER No Family History of: Abdominal aortic aneurysm [place]'s disease Alcoholism Aphasia Cancer Cancer of colon Cataract Chest pain Congenital heart disease Cystic fibrosis Dementia Dysphagia Family history: Allergy Family history: Alzheimer's disease Family history: Asthma Family history: Breast disease Family history: Cardiovascular disease Family history: Coronary thrombosis Family history: Diabetes mellitus Family history: Gastrointestinal disease Family history: Glaucoma Family history: Hypertension Family history: Thyroid disorder Headache Hearing loss Heart disease Hereditary disease History of - anemia History of - disorder History of - respiratory disease History of drug abuse Human immunodeficiency virus (HIV) seropositivity Hypercholesterolemia Infertile Kidney disease Malignant neoplasm of lung Myocardial infarction Parkinson's disease Prostate cancer Psychotic disorder Seizure disorder Stroke Tuberculosis Visual impairment Physical Exam Vital Signs Vital Signs - First Documented 06/11/20 22:05 Temp 36.8 Pulse 112 Resp 16 B/P (MAP) 153/101 (118) Pulse Ox 98 O2 Delivery Room Air Capillary Refill : Less Than 3 Seconds Height, Weight, BMI Height: 6'1.00" Weight: 200lbs. 8.0oz. 90.487138ip; 29.00 BMI Method:Stated General Appearance: No Apparent Distress, WD/WN HEENT: PERRL/EOMI, Normal ENT Inspection, Other (oropharynx somewhat pasty) Neck: Normal Inspection Respiratory: Lungs Clear, Normal Breath Sounds, No Accessory Muscle Use, No Respiratory Distress Cardiovascular: Regular Rate, Rhythm, No Edema, No Murmur Gastrointestinal: Normal Bowel Sounds, Non Tender, Soft Extremity: Normal Inspection, No Pedal Edema Neurologic/Psychiatric: Alert, Oriented x3, No Motor/Sensory Deficits, Normal Mood/Affect, Other (deaf) Skin: Normal Color, Warm/Dry Progress/Results/Core Measures Suspected Sepsis Recent Fever Within 48 Hours: No Infection Criteria Present: None New/Unexplained Altered Menta: No Sepsis Screen: No Definite Risk SIRS Temperature: Pulse: 112 Respiratory Rate: 16 Laboratory Tests 06/11/20 21:12: White Blood Count 13.6H Blood Pressure 153 /101 Mean: 118 Laboratory Tests 06/11/20 21:12: Creatinine 1.65H, Platelet Count 395, Total Bilirubin 0.4 Results/Orders Lab Results Laboratory Tests Test 06/11/20 21:12 06/11/20 21:24 Range/Units White Blood Count 13.6 H 4.3-11.0 10^3/uL Red Blood Count 5.55 4.35-5.85 10^6/uL Hemoglobin 17.9 H 13.3-17.7 G/DL Hematocrit 50 40-54 % Mean Corpuscular Volume 89 80-99 FL Mean Corpuscular Hemoglobin 32 25-34 PG Mean Corpuscular Hemoglobin Concent 36 32-36 G/DL Red Cell Distribution Width 13.2 10.0-14.5 % Platelet Count 395 130-400 10^3/uL Mean Platelet Volume 9.5 7.4-10.4 FL Neutrophils (%) (Auto) 61 42-75 % Lymphocytes (%) (Auto) 25 12-44 % Monocytes (%) (Auto) 11 0-12 % Eosinophils (%) (Auto) 2 0-10 % Basophils (%) (Auto) 0 0-10 % Neutrophils # (Auto) 8.3 H 1.8-7.8 X 10^3 Lymphocytes # (Auto) 3.5 1.0-4.0 X 10^3 Monocytes # (Auto) 1.5 H 0.0-1.0 X 10^3 Eosinophils # (Auto) 0.3 0.0-0.3 10^3/uL Basophils # (Auto) 0.0 0.0-0.1 10^3/uL Sodium Level 136 135-145 MMOL/L Potassium Level 3.4 L 3.6-5.0 MMOL/L Chloride Level 100 98-107 MMOL/L Carbon Dioxide Level 19 L 21-32 MMOL/L Anion Gap 17 H 5-14 MMOL/L Blood Urea Nitrogen 23 H 7-18 MG/DL Creatinine 1.65 H 0.60-1.30 MG/DL Estimat Glomerular Filtration Rate 45 BUN/Creatinine Ratio 14 Glucose Level 188 H 70-105 MG/DL Calcium Level 9.7 8.5-10.1 MG/DL Corrected Calcium 8.5-10.1 MG/DL Magnesium Level 1.8 1.6-2.4 MG/DL Total Bilirubin 0.4 0.1-1.0 MG/DL Aspartate Amino Transf (AST/SGOT) 28 5-34 U/L Alanine Aminotransferase (ALT/SGPT) 19 0-55 U/L Alkaline Phosphatase 82 40-136 U/L Total Creatine Kinase 502 H 30-200 U/L Total Protein 9.1 H 6.4-8.2 GM/DL Albumin 4.8 H 3.2-4.5 GM/DL Urine Color DARK YELLOW Urine Clarity SL CLOUDY Urine pH 5.5 5-9 Urine Specific [place] >=1.030 1.016-1.022 Urine Protein 2+ H NEGATIVE Urine Glucose (UA) NEGATIVE NEGATIVE Urine Ketones NEGATIVE NEGATIVE Urine Nitrite NEGATIVE NEGATIVE Urine Bilirubin NEGATIVE NEGATIVE Urine Urobilinogen 0.2 < = 1.0 MG/DL Urine Leukocyte Esterase NEGATIVE NEGATIVE Urine RBC (Auto) 2+ H NEGATIVE Urine RBC RARE /HPF Urine WBC 0-2 /HPF Urine Squamous Epithelial Cells RARE /HPF Urine Renal Epithelial Cells NONE /HPF Urine Crystals NONE /LPF Urine Bacteria TRACE /HPF Urine Casts PRESENT /LPF Urine Hyaline Casts 0-2 H /LPF Urine Granular Casts 0-2 H /LPF Urine Mucus SMALL H /LPF Urine Culture Indicated NO My Orders Orders - DEISY AMANDA MD Ed Iv/Invasive Line Start (06/11/20 20:40) Ns Iv 1000 Ml (Sodium Chloride 0.9%) (06/11/20 20:40) Cbc With Automated Diff (06/11/20 20:40) Comprehensive Metabolic Panel (06/11/20 20:40) Creatine Kinase (06/11/20 20:40) Magnesium (06/11/20 20:40) Ua Culture If Indicated (06/11/20 20:40) Ed Iv/Invasive Line Start (06/11/20 21:51) Lactated Ringers (Lr 1000 Ml Iv Solution (06/11/20 21:51) Lactated Ringers (Lr 1000 Ml Iv Solution (06/11/20 21:50) Medications Given in ED Current Medications Medications Dose Ordered Sig/Flavio Route Start Time Stop Time Status Last Admin Dose Admin Lactated Ringer's 1,000 ml @ 0 mls/hr Q0M ONCE IV 06/11/20 21:51 06/11/20 21:53 DC 06/11/20 22:10 0 MLS/HR Vital Signs/I&O 06/11/20 06/11/20 22:05 22:31 Temp 36.8 Pulse 112 76 Resp 16 16 B/P (MAP) 153/101 (118) 144/95 Pulse Ox 98 98 O2 Delivery Room Air Room Air Capillary Refill : Less Than 3 Seconds Blood Pressure Mean: 118 Progress Note : Time: 22:27 Progress Note Labs were similar to his prior visit. He was hydrated with a liter of normal sa line with improvement in his symptoms. An additional liter of LR was given prior to dismissal. Follow-up later in the week was recommended. Departure Impression Primary Impression: Muscle cramps Additional Impressions: Hypovolemia Renal insufficiency Disposition: 01 HOME, SELF-CARE Condition: Stable Departure-Patient Inst. Decision time for Depature: 22:14 Referrals: PAULA ROBLEDO MD (PCP/Family) Primary Care Physician Patient Instructions: Dehydration, Adult (DC) Add. Discharge Instructions: Drink plenty of clear liquids. Stay cool environments is much as possible. Return to care if you have worsening symptoms. Try to replace electrolytes as well by drinking sports drinks or Pedialyte and eating plenty of fruits and vegetables. Follow-up with your primary care provider later in the week. All discharge instructions reviewed with patient and/or family. Voiced understanding. Copy Copies To 1: PAULA ROBLEDO MD, JOSHUA T MD Jun 11, 2020 22:15
[2020-06-11 22:31] VITALS: BP 144/95
== END 2020-06-11 22:32 | disposition home or self-care (01) ==
LOC: EDUNIT# 20:36 → ER 20:37
DX: R25.2 Cramp and spasm (principal); E86.1 Hypovolemia; N28.9 Disorder of kidney and ureter, unspecified; F32.9 Major depressive disorder, single episode, unspecified; G89.29 Other chronic pain; M54.9 Dorsalgia, unspecified; F17.210 Nicotine dependence, cigarettes, uncomplicated; Z79.891 Long term (current) use of opiate analgesic; Z79.82 Long term (current) use of aspirin; Z79.51 Long term (current) use of inhaled steroids; Z79.52 Long term (current) use of systemic steroids; Z79.01 Long term (current) use of anticoagulants; Z86.718 Personal history of other venous thrombosis and embolism; Z82.49 Family history of ischemic heart disease and other diseases of the circulatory system
CPT/HCPCS: 36415; 80053; 81000; 82550; 83735; 85025